=== PATIENT | male | born 1955 | race Caucasian/White ===

== ENCOUNTER 2016-06-29 19:13 | Emergency (ER) | payer OTHER ==
[~2016-06-29] VITALS: Ht 167.6 cm; Wt 86.5 kg
[~2016-06-29 19:13] MED LIST: ACET325T96 PO; ASCO500T16 PO; ASPI-266 PO; CRAN1CAP14 PO; DOCU-94 PO; FINA5TAB PO; FRS/40 PO; METF1TAB53 PO; NIAC1TAB59 PO; NYST80OI TOP; OXYC-57 PO; POLY335019 PO; POTA20TA13 PO; PROP80CA PO; SULF800T23 PO
[2016-06-29 19:17] VITALS: TEMP 36.7; Ht 167.6 cm; Wt 86.5 kg
[2016-06-29] MEDS ORDERED: OXYBUTYNIN CHLORIDE 5 MG TAB PO STA (19:52)
--- NOTE | 2016-06-29 20:01 | EMERGENCY ROOM VISIT NOTE ---
History Report prepared by Gerry: Jackelyn Araiza Under the Supervision of: Dr. Adalberto Padilla D.O. First contact with patient: 19:21 Chief Complaint: CATHETER REPLACEMENT Stated Complaint: CATH IS LEAKING History of Present Illness The patient is a 60 year old male who presents to the Emergency Room with complaints of persistent catheter leaking today. The patient has a history of a neurogenic bladder and recurrent urinary tract infections. On May 30, he had an open suprapubic catheter placed by Dr. Woodson of urology. Today, the patient started noticing some leakage from the site of catheter insertion. Source of History: patient Onset: today Position: other () Quality: other (leakage) Timing: other (persistent) Review of Systems See HPI for pertinent positives & negatives. A total of 10 systems reviewed and were otherwise negative. Past Medical & Surgical Medical Problems: (1) Cellulitis (2) Cerebral palsy (3) Diabetes mellitus (4) HTN (hypertension) Family History No pertinent family history Social History Smoking Status: Former Smoker Alcohol Use: none Drug Use: none Marital Status: single Housing Status: lives alone Occupation Status: disabled Current/Historical Medications Scheduled Ascorbic Acid (Ascorbic Acid), 500 MG PO QAM Aspirin (Aspirin Low Dose), 81 MG PO QAM Cranberry-Vitamin C-Vitamin E (Cranberry Plus Vitamin C), 2 CAP PO QAM Docusate Sodium (Colace), 100 MG PO BID Finasteride (Proscar), 5 MG PO QAM Furosemide (Lasix), 40 MG PO QAM Gemfibrozil (Lopid), 600 MG PO BIDM Magnesium Oxide (Mag-Ox), 400 MG PO QAM Metformin Hcl (Glucophage Ext Rel), 1,000 MG PO BIDM Niacin Ext Rel (Niaspan Ext Rel), 2,500 MG PO HS Nystatin (Topical) (Nystatin), 1 APPLN TOP BID Potassium Chloride Microencaps (Potassium Chloride Er), 20 MEQ PO QAM Propranolol Hcl (Propranolol Hcl Er), 80 MG PO QAM Solifenacin Succinate (Vesicare), 1 TAB PO DAILY Sulfa/Trimethoprim (Bactrim Ds 800MG/160MG), 1 TAB PO BID Scheduled PRN Acetaminophen Tab (Tylenol), 650 MG PO Q4 PRN for Pain Oxycodone/Acetaminophen 5MG/325MG (Percocet 5MG/325MG), 1 TABLET PO Q4H PRN for Pain Polyethylene Glycol 3350 (Miralax), 17 GM PO DAILY PRN for Constipation Tramadol Hcl (Ultram), 50 MG PO BID PRN for Pain Allergies Coded Allergies: No Known Allergies (Unverified , 06/29/16) Physical Exam Vital Signs Date Time Temp Pulse Resp B/P Pulse Ox O2 Delivery O2 Flow Rate FiO2 06/29/16 19:17 36.7 98 20 151/90 96 Room Air Physical Exam CONSTITUTIONAL/VITAL SIGNS: Reviewed / noted above. GENERAL: Non-toxic in appearance. INTEGUMENTARY: Warm, dry, and [place]. HEAD: Normocephalic. EYES: without scleral icterus or trauma. ENT/OROPHARYNX: clear and moist. LYMPHADENOPATHY/NECK: Is supple without lymphadenopathy or meningismus. RESPIRATORY: Lungs clear and equal. CARDIOVASCULAR: Regular rate and rhythm. GI/ABDOMEN: Soft and nontender. No organomegaly or pulsatile mass. No rebound or guarding. Normal bowel sounds. Indwelling Hernandez catheter in the suprapubic region. Clear yellow urine in the bag. No gross leakage or bleeding over the ostomy site. EXTREMITIES: Warm and well perfused. BACK: No CVA tenderness. NEUROLOGICAL: Intact without focal deficits. PSYCHIATRIC: normal affect. MUSCULOSKELETAL: Normally developed with good muscle tone. Medical Decision & Procedures ED Course 1921: Previous medical records were reviewed. The patient was evaluated in room C10. A complete history and physical examination was performed. 1941: I discussed the case with Dr. Reynoso - [facility]. He recommended putting the patient on Vesicare for bladder spasms. 1951: Ordered Ditropan Tab 5 mg PO. 2012: On reevaluation, the patient is resting comfortably. I discussed the results and findings with the patient. He verbalized agreement of the treatment plan. The patient was discharged home. Medical Decision Differential includes infection, mechanical dilatation of ostomy, bladder spasm. This is a 60-year-old male who presents to the ED with a chief complaint of some leaking from his ostomy site. The patient has an indwelling suprapubic Hernandez catheter. The patient has had some episodes of drainage from around the catheter site causing splenis to his clothing today. He denies any other symptoms. Currently his catheter bag is filled with a clear yellow urine. There is no witness to the site or any leakage around the site. I spoke with Dr. Gamboa about this case. He recommends the patient be started on the trip and or Vesicare for bladder spasm. The patient was given a dose of the trip and here. He'll be sent home with a prescription. Consults Time Called: 1929 Consulting Physician: Dr. Reynoso - [facility] Returned Call: 1941 I discussed the case with him. He recommended putting the patient on Vesicare for bladder spasms. Impression Primary Impression: Bladder spasm Additional Impression: Malfunction of Hernandez catheter Scribe Attestation The scribe's documentation has been prepared under my direction and personally reviewed by me in its entirety. I confirm that the note above accurately reflects all work, treatment, procedures, and medical decision making performed by me. Departure Information Dispostion Home / Self-Care Prescriptions Solifenacin Succinate (VESICARE) 5 Mg Tab 1 TAB PO DAILY for 30 Days, #30 TAB 11 Refills Prov: Adalberto Padilla D.O. 06/29/16 Referrals Mitchel Chowdhury M.D. (PCP) Patient Instructions My [facility] Additional Instructions Prescription for Vesicare sent to [facility]. Follow-up with Dr. Woodson this week for recheck. Problem Qualifiers
[2016-06-29] MEDS ORDERED: ULT/50 PO (20:09)
[2016-06-29] MEDS ORDERED: SOLI5TAB2 PO (20:12)
[2016-06-29] MEDS ORDERED: ASPI81TA28 PO (20:29)
[2016-06-29] MEDS ORDERED: LSN25 PO (20:29)
[2016-06-29] MEDS ORDERED: SENNTAB PO (20:29)
[2016-06-29] MEDS ORDERED: FLM4 PO (20:29)
[2016-06-29] MEDS ORDERED: GLC5 PO (20:29)
[2016-06-29 21:07] VITALS: BP 153/86; PULSE 93; O2SAT 98
[2016-06-29] MEDS ORDERED: MAGN400T6 PO (22:39)
[2016-06-29] MEDS ORDERED: GEMF600T3 PO (22:39)
[2016-09-02] MEDS ORDERED: GLC/500 PO (15:04)
[2016-09-05] MEDS ORDERED: CEPH500C2 PO (11:48)
== END 2016-06-29 21:07 | disposition home or self-care (01) ==
LOC: C.EDB 19:15 → C.EDC 21:07
DX: T83.038A Leakage of other urinary catheter, initial encounter (principal); X58.XXXA Exposure to other specified factors, initial encounter; E11.9 Type 2 diabetes mellitus without complications; I10 Essential (primary) hypertension; N32.89 Other specified disorders of bladder; N31.9 Neuromuscular dysfunction of bladder, unspecified; G80.9 Cerebral palsy, unspecified; Z86.19 Personal history of other infectious and parasitic diseases; Z87.891 Personal history of nicotine dependence; Z79.82 Long term (current) use of aspirin; Z79.84 Long term (current) use of oral hypoglycemic drugs; Z79.899 Other long term (current) drug therapy

== ENCOUNTER → 2016-07-09 | Outpatient (CLI) | payer OTHER ==
[~2016-07-09] MED LIST changes: -ASPI-266 PO; +ASPI81TA28 PO; +CEPH500C2 PO; -DOCU-94 PO; +FLM4 PO; +GEMF600T3 PO; +GLC/500 PO; +GLC5 PO; +LSN25 PO; +MAGN400T6 PO; -OXYC-57 PO; +SENNTAB PO; -SULF800T23 PO; +ULT/50 PO
[2016-07-09 13:07] LABS: ESTIMATED AVERAGE GLUCOSE 128 mg/dl; HA1C FLAG Normal (Normal)
== END | disposition home or self-care (01) ==
LOC: C.LABBFT 11:18
PROVIDERS: ATTEND Internal Medicine
DX: E11.9 Type 2 diabetes mellitus without complications (principal)

== ENCOUNTER → 2016-08-19 | Outpatient (CLI) | payer OTHER ==
--- NOTE | 2016-08-30 11:55 | CODING QUERY NO DIAGNOSIS ---
TREATMENT RENDERED WITHOUT A DIAGNOSIS To promote full compliance with coding requirements relating to patient care, physician participation is requested in all cases of career development consultant uncertainty. Please assist us with providing a diagnosis/symptom for the test(s) below: A diagnosis/symptom was not documented on your Order. A valid diagnosis/symptom is required to bill all insurances. Please remember that we are unable to code a diagnosis of rule out, probable, possible, questionable, or suspected. Tests that require a diagnosis: * WOUND CULTURE, SURFACE AND GS HIP DIAGNOSIS: Provider Signature: Date: Thank you Cathryn Langley Chargeback Information Management Once completed, please kindly fax back to [phone] For questions please call [phone]
== END | disposition home or self-care (01) ==
LOC: C.LABSPEC 09:20
PROVIDERS: ATTEND Physician Assistant Medical
DX: T14.8 Other injury of unspecified body region (principal); X58.XXXA Exposure to other specified factors, initial encounter

== ENCOUNTER → 2016-08-26 | Outpatient (CLI) | payer OTHER | END | disposition home or self-care (01) | LOC: C.LABSPEC 12:27 | PROVIDERS: ATTEND Nurse Practitioner | DX: S71.002A Unspecified open wound, left hip, initial encounter (principal); X58.XXXA Exposure to other specified factors, initial encounter ==

== ENCOUNTER → 2017-03-04 | Outpatient (CLI) | payer OTHER ==
[2017-03-04 12:34] LABS: BASO % 0.3 %; BASO ABS # 0.02 K/uL (0-0.2); COMPLETE YES; EOS % 2.8 %; HEMATOCRIT 36.7 % (42-52); IG% 1.1 %; LYMPH % 22.4 %; LYMPH ABS # 1.46 K/uL (1.2-3.4); MEAN CELL VOLUME 95.3 fL (80-100); MEAN CORPUSCULAR HEMOGLOBIN 33.2 pg (25-34); MEAN CORPUSCULAR HGB CONC 34.9 g/dl (32-36); MEAN PLATELET VOLUME 8.9 fL (7.4-10.4); NEUT % 65.4 %; PLATELET COUNT 276 K/uL (130-400); RED BLOOD COUNT 3.85 M/uL (4.7-6.1); WHITE BLOOD COUNT 6.51 K/uL (4.8-10.8)
[2017-03-04 12:50] LABS: ESTIMATED AVERAGE GLUCOSE 105 mg/dl; HA1C FLAG Normal (Normal)
[2017-03-04 12:54] LABS: ALT/SGPT 20 U/L (12-78); BLOOD UREA NITROGEN 12 mg/dl (7-18); BUN/CREATININE RATIO 12.5 (10-20); CALCIUM 10.1 mg/dl (8.5-10.1); CARBON DIOXIDE 27 mmol/L (21-32); CHLORIDE 99 mmol/L (98-107); CHOLESTEROL 166 mg/dl (0-200); CREATININE 0.93 mg/dl (0.60-1.40); GLUCOSE 202 mg/dl (70-99); POTASSIUM 3.4 mmol/L (3.5-5.1); SODIUM 136 mmol/L (136-145)
[2017-03-04 12:57] LABS: ALKALINE PHOSPHATASE 83 U/L (45-117); AST/SGOT 19 U/L (15-37); CHOLESTEROL/HDL RATIO 2.6; HDL CHOLESTEROL 64 mg/dl; LDL CHOLESTEROL CALCULATED 72 mg/dl; TRIGLYCERIDES 150 mg/dl (0-150); VERY LOW DENSITY LIPOPROT CALC 30 mg/dl
== END | disposition home or self-care (01) ==
LOC: C.LABBFT 11:12
PROVIDERS: ATTEND Physician Assistant Medical
DX: E11.9 Type 2 diabetes mellitus without complications (principal)

== ENCOUNTER → 2017-03-10 | Outpatient (CLI) | payer OTHER ==
[2017-03-10 12:34] LABS: BLOOD UREA NITROGEN 15 mg/dl (7-18); BUN/CREATININE RATIO 18.2 (10-20); CALCIUM 10.3 mg/dl (8.5-10.1); CARBON DIOXIDE 26 mmol/L (21-32); CHLORIDE 100 mmol/L (98-107); CREATININE 0.83 mg/dl (0.60-1.40); GLUCOSE 206 mg/dl (70-99); POTASSIUM 3.6 mmol/L (3.5-5.1); SODIUM 136 mmol/L (136-145)
[2017-03-10 12:40] LABS: FERRITIN 63.6 ng/ml (8.0-388.0); TOTAL IRON BINDING CAPACITY 401 mcg/dl (250-450)
== END | disposition home or self-care (01) ==
LOC: C.LABBFT 08:48
PROVIDERS: ATTEND Physician Assistant Medical
DX: D64.9 Anemia, unspecified (principal); E87.6 Hypokalemia

== ENCOUNTER → 2017-07-18 | Outpatient (CLI) | payer OTHER ==
[~2017-07-18] MED LIST changes: +ACET-1693 PO; -ACET325T96 PO
[2017-07-18 12:39] LABS: HEMATOCRIT 37.3 % (42-52); HEMOGLOBIN 12.9 g/dL (14.0-18.0); MEAN CELL VOLUME 97.1 fL (80-100); MEAN CORPUSCULAR HEMOGLOBIN 33.6 pg (25-34); MEAN CORPUSCULAR HGB CONC 34.6 g/dl (32-36); PLATELET COUNT 285 K/uL (130-400); RED CELL DISTRIBUTION WIDTH CV 13.7 % (11.5-14.5); RED CELL DISTRIBUTION WIDTH SD 47.9 fL (36.4-46.3); WHITE BLOOD COUNT 6.77 K/uL (4.8-10.8)
[2017-07-18 12:59] LABS: BLOOD UREA NITROGEN 21 mg/dl (7-18); CALCIUM 10.2 mg/dl (8.5-10.1); CARBON DIOXIDE 26 mmol/L (21-32); CREATININE 1.09 mg/dl (0.60-1.40); GLUCOSE 210 mg/dl (70-99); POTASSIUM 3.7 mmol/L (3.5-5.1); SODIUM 133 mmol/L (136-145)
== END | disposition home or self-care (01) ==
LOC: C.LABBFT 10:48
PROVIDERS: ATTEND Physician Assistant Medical
DX: D64.9 Anemia, unspecified (principal); E83.52 Hypercalcemia

== ENCOUNTER → 2017-07-28 | Outpatient (CLI) | payer OTHER | END | disposition home or self-care (01) | LOC: C.LABBFT 09:12 | PROVIDERS: ATTEND Physician Assistant Medical | DX: E83.52 Hypercalcemia (principal) ==

== ENCOUNTER → 2017-08-07 | Outpatient (CLI) | payer OTHER ==
[2017-08-07 10:23] LABS: HEMATOCRIT 35.2 % (42-52); HEMOGLOBIN 12.4 g/dL (14.0-18.0); MEAN CELL VOLUME 95.7 fL (80-100); MEAN CORPUSCULAR HEMOGLOBIN 33.7 pg (25-34); MEAN CORPUSCULAR HGB CONC 35.2 g/dl (32-36); MEAN PLATELET VOLUME 8.8 fL (7.4-10.4); PLATELET COUNT 234 K/uL (130-400); RED CELL DISTRIBUTION WIDTH CV 13.6 % (11.5-14.5); RED CELL DISTRIBUTION WIDTH SD 46.3 fL (36.4-46.3); WHITE BLOOD COUNT 5.02 K/uL (4.8-10.8)
== END | disposition home or self-care (01) ==
LOC: C.LABSPEC 10:02
PROVIDERS: ATTEND Internal Medicine
DX: E83.52 Hypercalcemia (principal)

== ENCOUNTER → 2017-08-29 | Outpatient (CLI) | payer OTHER ==
--- NOTE | 2017-08-29 09:44 | DIAGNOSTIC IMAGING REPORT ---
EXAMINATION: RENAL ULTRASOUND CLINICAL HISTORY: URINARY RETENTION COMPARISON STUDY: CT scan dated 04/20/2016, ultrasound dated 01/04/2014 FINDINGS: The right kidney measures 10.5 cm. The left kidney measures 10.4 cm. There is no evidence of hydronephrosis. There are no renal masses. Evaluation the bladder was limited due to indwelling Hernandez catheter. There is equivocal bladder wall thickening IMPRESSION : 1. No renal masses identified. No evidence of hydronephrosis 2. Possible bladder wall thickening. Evaluation the bladder was limited as the bladder was decompressed with an indwelling Hernandez catheter Electronically signed by: Tl Evangelista M.D. 08/29/2017 9:43 AM Dictated Date/Time: 08/29/2017 9:42 AM
== END | disposition home or self-care (01) ==
LOC: C.ULTR 08:39
PROVIDERS: ATTEND Urology
DX: R33.9 Retention of urine, unspecified (principal)

== ENCOUNTER 2017-10-01 08:57 | Emergency (ER) | payer OTHER ==
[~2017-10-01] VITALS: Ht 167.6 cm; Wt 85.0 kg
[2017-10-01 09:08] VITALS: TEMP 36.9; Ht 167.6 cm; Wt 85.0 kg
[2017-10-01] MEDS ORDERED: DIPHTHERIA/TETANUS/PERTUSSIS 0.5 ML SYR/VIAL IM. ONE (09:15)
[2017-10-01 10:40] VITALS: BP 145/78; PULSE 104; O2SAT 96
--- NOTE | 2017-10-01 14:44 | EMERGENCY ROOM VISIT NOTE ---
History Report prepared by Gerry: Jeanmarie Blackman Under the Supervision of: Dr. Yosef Dahl D.O. First contact with patient: 09:03 Chief Complaint: TOE PAIN, INJURY Stated Complaint: FOOT PAIN History of Present Illness The patient is a 61 year old male who presents to the Emergency Room via ALS with complaints of bleeding in the 3rd toe of the right foot. The patient states that he was using the restroom early this morning when he hit his toe on something. The toenail was ripped off and began to bleed. The patient has no other complaints. Pain is constant over the top of the toenail. No exacerbating or remitting factors. Source of History: patient Onset: Early this morning Position: toe(s) (3rd toe right foot) Quality: other (Stubbed toe - bleeding, lost toenail) Timing: other (Stubbed toe this morning) Note: No other complaints Review of Systems See HPI for pertinent positives & negatives. A total of 6 systems reviewed and were otherwise negative. Past Medical & Surgical Medical Problems: (1) Cellulitis (2) Cerebral palsy (3) Diabetes mellitus (4) HTN (hypertension) Family History No pertinent family history Social History Smoking Status: Former Smoker Alcohol Use: none Drug Use: none Marital Status: single Housing Status: lives alone Occupation Status: disabled Current/Historical Medications Scheduled Ascorbic Acid (Ascorbic Acid), 500 MG PO QAM Aspirin (Aspirin Ec), 81 MG PO DAILY Cephalexin Monohydrate (Keflex), 500 MG PO TID Cranberry-Vitamin C-Vitamin E (Cranberry Plus Vitamin C), 2 CAP PO QAM Finasteride (Proscar), 5 MG PO QAM Furosemide (Lasix), 40 MG PO QAM Gemfibrozil (Lopid), 600 MG PO BIDM Glipizide (Glipizide), 10 MG PO BID Lisinopril (Lisinopril), 2.5 MG PO DAILY Magnesium Oxide (Mag-Ox), 400 MG PO QAM Metformin Hcl (Glucophage Ext Rel), 1,000 MG PO BIDM Metformin Hcl (Glucophage), 500 MG PO DAILY@1200 Niacin Ext Rel (Niaspan Ext Rel), 2,500 MG PO HS Nystatin (Topical) (Nystatin), 1 APPLN TOP BID Potassium Chloride Microencaps (Potassium Chloride Er), 20 MEQ PO QAM Propranolol Hcl (Propranolol Hcl Er), 80 MG PO QAM Sennosides-Docusate Sodium (Qc Stool Softener Plus La), 1 TAB PO BID Scheduled PRN Acetaminophen Tab (Tylenol), 650 MG PO Q4 PRN for Pain Polyethylene Glycol 3350 (Miralax), 17 GM PO DAILY PRN for Constipation Tramadol Hcl (Ultram), 50 MG PO BID PRN for Pain Allergies Coded Allergies: No Known Allergies (Unverified , 10/01/17) Physical Exam Vital Signs Date Time Temp Pulse Resp B/P (MAP) Pulse Ox O2 Delivery O2 Flow Rate FiO2 10/01/17 10:40 104 20 145/78 96 10/01/17 09:08 36.9 100 16 135/92 100 Room Air Physical Exam GENERAL: Sitting up in bed, alert, well appearing, well nourished, no distress, non-toxic EYE EXAM: normal conjunctiva. OROPHARYNX: no exudate, no erythema, lips, buccal mucosa, and tongue normal and mucous membranes are moist NECK: supple, no nuchal rigidity, no adenopathy, non-tender LUNGS: Clear to auscultation. Normal chest wall mechanics HEART: no murmurs, S1 normal and S2 normal ABDOMEN: abdomen soft, non-tender, normo-active bowel sounds, no masses, no rebound or guarding. SKIN: no rashes and no bruising UPPER EXTREMITIES: upper extremities are grossly normal. LOWER EXTREMITIES: No pitting edema. Right 3rd toe with evulsion of nail. Slightly tacked on the right posterior aspect. no active bleeding. Good capillary refill. No tenderness throughout the toe. NEURO EXAM: Normal sensorium, no focal deficits. Medical Decision & Procedures ED Course ED COURSE: Vital signs were reviewed and showed normal vitals The patients medical record was reviewed The above diagnostic studies were performed and reviewed. ED treatments and interventions as stated above. 0905: The patient was evaluated in room A12B. A complete history and physical examination was performed. 0908: Upon initial evaluation, the patient is comfortable and without complaints.I discussed my findings with the patient and he understands and agrees with the treatment plan. Based on the patients age, coexisting illnesses, exam and lab findings the decision to treat as an outpatient was made. The patient remained stable while under my care. The patient appeared well at the time of discharge. Medical Decision Patient is a 61-year-old male who presents the ER who stubbed his right third toe. He did have an avulsion of the nail. No other pain. Tetanus was updated. Wound was dressed. Wound was clean. He was discharged follow-up with PCP as an outpatient. No tenderness to suggest fracture. Discussed with Pt concerning signs and symptoms to watch out for. Pt was instructed to follow up with their PCP and discussed with the patient their option to return to the ED at anytime for persistent or worsening symptoms. The appropriate anticipatory guidance and out-patient management, including indications for return to the emergency department, were explained at length to the patient and understood. Impression Primary Impression: Nail avulsion of toe Scribe Attestation The scribe's documentation has been prepared under my direction and personally reviewed by me in its entirety. I confirm that the note above accurately reflects all work, treatment, procedures, and medical decision making performed by me. Departure Information Dispostion Home / Self-Care Referrals Mitchel Chowdhury M.D. (PCP) Forms HOME CARE DOCUMENTATION FORM, IMPORTANT VISIT INFORMATION, WORK / SCHOOL INSTRUCTIONS Patient Instructions My [facility] Additional Instructions Please follow up with your primary care doctor with in the next 24 hours. Any worsening of your symptoms, please return to the ED immediately. This includes any fevers greater than 100.4, surrounding redness, worsening pain, green or yellow discharge from the wound site, persistent bleeding, inability to walk, streaking redness up the foot, or any other concerning signs or symptoms from your standpoint. Please take Tylenol or Motrin as needed for pain. Please keep your toe dressed and dry. Please apply antibiotic ointment. Please try to change dressing daily. He must follow-up with your PCP in 48 hours for recheck. Problem Qualifiers Primary Impression: Nail avulsion of toe Encounter type: initial encounter Qualified Codes: S91.209A - Unspecified open wound of unspecified toe(s) with damage to nail, initial encounter
== END 2017-10-01 10:42 | disposition home or self-care (01) ==
LOC: EDBD 08:57 → C.EDA 09:04
DX: S91.215A Laceration without foreign body of left lesser toe(s) with damage to nail, initial encounter (principal); W22.8XXA Striking against or struck by other objects, initial encounter; G80.9 Cerebral palsy, unspecified; E11.9 Type 2 diabetes mellitus without complications; I10 Essential (primary) hypertension; Z87.891 Personal history of nicotine dependence; Z79.82 Long term (current) use of aspirin; Z79.84 Long term (current) use of oral hypoglycemic drugs; Z79.899 Other long term (current) drug therapy

== ENCOUNTER → 2018-01-27 | Outpatient (CLI) | payer OTHER ==
[~2018-01-27] MED LIST changes: -CEPH500C2 PO; -FLM4 PO; -GEMF600T3 PO; +GEMF600T5 PO
== END | disposition home or self-care (01) ==
LOC: C.LABSPEC 14:46
PROVIDERS: ATTEND Urology
DX: N39.0 Urinary tract infection, site not specified (principal)

== ENCOUNTER 2018-10-10 19:44 | Inpatient (IN) ==
[2018-10-10] MEDS ORDERED: SODIUM CHLORIDE 0.9% 1000ML 1,000 ML IV ONE (20:11)
[2018-10-10 20:35] LABS: Hematocrit (blood only) 33.5 % (42-52); Immature Granulocytes # (auto) 0.06 K/uL (0.00-0.02); Immature Granulocytes % (auto) 0.4 %; Lymphocytes # (auto) 0.55 K/uL (1.2-3.4); Lymphocytes % (auto) 3.5 %; Mean Corpuscular Hgb Conc 35.8 g/dL (32-36); Mean Corpuscular Volume 96.3 fL (80-100); Mean Platelet Volume 8.4 fL (7.4-10.4); Monocytes % (auto) 2.6 %; Neutrophils # (auto) 14.53 K/uL (1.4-6.5); Neutrophils % (auto) 93.5 %; Platelet Count 229 K/uL (130-400); RDW Standard Deviation 49.4 fL (36.4-46.3); Red Blood Count 3.48 M/uL (4.7-6.1); White Blood Count 15.54 K/uL (4.8-10.8)
[2018-10-10 20:49] LABS: INR 1.2 (0.9-1.1); Partial Thromboplastin Ratio 1.1; Partial Thromboplastin Time 30.8 Seconds (21.0-31.0); Prothrombin Time 12.4 Seconds (9.0-12.0)
[2018-10-10 20:53] LABS: Albumin Level 3.9 gm/dl (3.4-5.0); BUN Creatinine Ratio 12.6 (10-20); Bilirubin Direct 0.3 mg/dl (0-0.2); Calcium 9.9 mg/dl (8.5-10.1); Creatinine Clr Calc Pharmacy 60.6 ml/min; Est GFR (African American) 71.5; Est GFR (Non-African American) 61.7; Magnesium 2.1 mg/dl (1.8-2.4); Potassium 3.8 mmol/L (3.5-5.1)
[2018-10-10 20:56] LABS: Bilirubin,Total 1.1 mg/dl (0.2-1); Phosphorus 2.3 mg/dl (2.5-4.9); Total Protein 7.9 gm/dl (6.4-8.2)
--- NOTE | 2018-10-10 20:58 | XRay Report ---
XR chest 1V portable CLINICAL HISTORY: Sepsis COMPARISON STUDY: Chest radiograph April 28, 2018. FINDINGS: Lung volumes are mildly diminished. This is unchanged. Cardiomediastinal is stable. Patient is mildly rotated. There is no pneumothorax or pleural effusion. Apparent hazy left basilar opacity is likely artifactual. The appearance of the chest is unchanged. IMPRESSION: No acute cardiopulmonary findings. No change in appearance of the chest. Electronically signed by: Casimiro Martínez M.D. 10/10/2018 8:56 PM
[2018-10-10] MEDS ORDERED: VANCOMYCIN CONSULT ACTIVE PRN (21:33)
[2018-10-10] MEDS ORDERED: PIPERACILLIN/TAZOBACTAM 4.5 GM/120 ML BAG IV ONE (21:33)
[2018-10-10] MEDS ORDERED: VANCOMYCIN HCL 1,500 MG in SODIUM CHLORIDE 0.9% 500 ML IV ONE (21:33)
[2018-10-10 22:01] LABS: Appearance Urine Clear (Clear); Bilirubin Urine Negative (Negative); Blood Urine 3+ (Negative); Color Urine Yellow; Glucose Urine UA Negative (Negative); Ketones Urine Trace (Negative); Leukocyte Esterase Urine 2+ (Negative); Nitrite Urine Positive (Negative); Protein Urine 1+ (Negative); Specific Gravity Urine 1.015 (1.000-1.030); Urobilinogen Urine Negative (Negative); pH Urine 5.5 (4.5-7.5)
--- NOTE | 2018-10-10 23:02 | Ultrasound Report ---
LEFT LOWER EXTREMITY VENOUS DOPPLER CLINICAL HISTORY: Swelling and redness. COMPARISON STUDY: Left lower extremity venous Doppler ultrasound April 12, 2014. TECHNIQUE: Sonography of the deep venous system of the left lower extremity was performed. Compressi on and augmentation were evaluated. FINDINGS: This exam was technically difficult. The left common femoral, superficial femoral and popli teal veins were compressible. Augmentation was normal. Flow was shown within the deep calf vessels. IMPRESSION: Technically difficult exam but no evidence of deep venous thrombus within the left lower extremity. Electronically signed by: Casimiro Martínez M.D. 10/10/2018 11:01 PM
--- NOTE | 2018-10-10 23:49 | History & Physical Report ---
Date of Service October 10, 2018 Assessment & Plan (1) Weakness: 62-year-old male was admitted on 10 Oct 2018 for increased weakness and concern for leg infection. Weakness, catheter-associated urinary tract infection: By report onset of symptoms was earlier day of admission. He has a history of a chronic suprapubic catheter with previous UTIs. History is limited at present. In ED, is afebrile, not tachycardic, with normal blood pressures. WBC 15 and lactate 2.3. Urine positive for protein, blood, nitrates, and leukocyte esterase. Urine culture and blood cultures sent. Comparison urine culture in April 2018 was positive for MDR Pseudomonas and E faecalis but sensitive to vancomycin and Zosyn. - In ED, treated with 1 L of normal saline IVF. Started on empiric vancomycin and Zosyn. - We will recheck lactate. Continue above antibiotics. Continue IVF. Left leg cellulitis: Unclear time of duration. There are couple of small toe wounds that may be contributing. - Above vancomycin and Zosyn should initially cover. Elevated creatinine: Admit Cr 1.2. Recent comparisons around Cr 0.9. Given IVF bolus. - Will keep on maintenance LR IVF. Recheck Cr in a.m. Tachypnea: Respiratory rate in the 20s. Clear to auscultation on exam. Portable chest x-ray noted no acute findings. Reported left basilar opacity is likely artifactual. May be related to his UTI and/or cellulitis infections. Monitor for now. Hyponatremia: Admit sodium 132. Given IVF. Will recheck in a.m. Ongoing medical issues: - Hypertension, hyperlipidemia: Continue home aspirin, gemfibrozil, niacin, potassium, magnesium, propranolol. --- We will hold lisinopril and Lasix due to mild increased creatinine. - Macrocytic anemia: Previous work-up in April 2018. Current admit Hb 12 and normal MCV. - Diabetes: At home is on metformin. Admit glucose 217. --- We will cover with insulin sliding scale as inpatient. Holding home metformin. - Cerebral palsy, spina bifida: Continue home MiraLAX, sennosides/docusate, tramadol. - Possible BPH: Continue home finasteride. Code status: Unable to assess at time of admission. Will start with full code. Diet: Heart healthy, DM2 diet. DVT prophy: Lovenox 40 daily. PT/OT: Deferred. Disbo: We will admit to [facility] At baseline lives at home with home health and family support. (2) Catheter-associated urinary tract infection: (3) Cellulitis of left leg: (4) Elevated serum creatinine: (5) Tachypnea: (6) Hyponatremia: (7) Hyponatremia: (8) Hypertension: (9) Hyperlipidemia: (10) History of macrocytic anemia: (11) Diabetes: (12) Cerebral palsy: (13) Spina bifida: History of Present Illness Primary Care Provider: Mitchel Chowdhury MD 62-year-old male presented emergency department apparently complaining of increased fatigue and generalized weakness beginning earlier in the day (October 10). Of note, the history for H&P purposes was completely taken from the medical record and conversations with both the emergency department physician and bedside nurse. At present, patient is sleeping soundly, arouses briefly to pain, but immediately goes back to sleep. Per the emergency department physician, earlier the patient was initially conversational but a bit slower due to baseline cerebral palsy. History was per patient's sister. Apparently the patient did not want to get out of bed earlier in the day. Sister was concerned about increased weakness, a potential leg infection, and higher than normal blood sugar. She noted that he has a suprapubic catheter in place that is changed out every week. --- Past medical history includes cerebral palsy, spina bifida, hypertension, hyperlipidemia, microcytic anemia, diabetes, possibly BPH. --- Past surgical history is presently unclear. --- Social history includes reportedly is living at home with family and nursing support. Allergies Allergy/AdvReac Type Severity Reaction Status Date / Time No Known Allergies Allergy Verified 10/10/18 20:37 Home Medications Home Medications Medication Instructions Recorded Confirmed Type acetaminophen [Tylenol] 650 mg PO Q4H PRN 04/28/18 10/10/18 History ascorbic acid (vitamin C) [Vitamin 500 mg PO DAILY 04/28/18 10/10/18 History C] aspirin [Aspirin Low Dose] 81 mg PO DAILY 04/28/18 10/10/18 History cholecalciferol (vitamin D3) 2,000 units PO DAILY 04/28/18 10/10/18 History [Vitamin D3] finasteride 5 mg PO DAILY 04/28/18 10/10/18 History furosemide 40 mg PO DAILY 04/28/18 10/10/18 History gemfibrozil 600 mg PO BID 04/28/18 10/10/18 History lisinopril 2.5 mg PO DAILY 04/28/18 10/10/18 History magnesium oxide 400 mg PO DAILY 04/28/18 10/10/18 History metformin 1,000 mg PO BID 04/28/18 10/10/18 History niacin [Niacor] 2,500 mg PO HS 04/28/18 10/10/18 History polyethylene glycol 3350 [Miralax] 17 g PO DAILY PRN 04/28/18 10/10/18 History potassium chloride 20 meq PO DAILY 04/28/18 10/10/18 History propranolol 80 mg PO DAILY 04/28/18 10/10/18 History tramadol 50 mg PO BID 04/28/18 10/10/18 History acetic acid 1 irrig IRRIGATION DIRECTED 10/10/18 10/10/18 History sennosides-docusate sodium [Senna 1 tab PO BID 10/10/18 10/10/18 History Laxative-Stool Softener] Past Med/Surg History Medical History HTN (hypertension) (Chronic) Spina bifida (Chronic) Cerebral palsy (Chronic) Diabetes (Chronic) Heart disease (Chronic) Pneumonia (Suspected) Family History Other Cancer Diabetes Heart disease Hypertension Social History Preferred Language: Faroese Communication Ability: Effective Communication Ability Comment: [facility], hears better from R ear Side Gluer Required: No Beliefs That Will Affect Care: None Current Living Situation: Alone Current Living Situation Comment: has cargivers from [id number] and [id number] Feels Safe at Home: Yes Safety Concerns: Feels Safe At This Time Smoking Status: Never smoker Do You Dip or Chew Tobacco: No Hx Alcohol Use: No Hx Substance Use: No Review of Systems Review of Systems: Unable to obtain ROS due to current somnolence. Physical Exam Physical Exam: GENERAL: Patient is somnolent, flinches to pain but does not open his eyes. HENT: Normocephalic, atraumatic. EYES: Normal conjunctiva. Sclera non-icteric. NECK: Inspection normal. CARDIAC: +S1S2 RRR, no murmurs. RESPIRATORY: Clear to auscultation. No wheezes or rales. Respiratory rate in low 20s with no evidence of accessory muscle use. GI: +BS, soft, non-distended. No clear tenderness to palpation. Suprapubic catheter in place without surrounding erythema or obvious discharge. EXTREMITIES: There is generalized erythema of the left leg from the toes to just distal to the patella near circumferentially. There is some macerated tissue between the toes on the left foot. There is a small ulcerative type lesion on the third toe of the right foot. The left arm is being held in a flexed position. NEURO: Unable to assess due to somnolence. Does arouse a bit to pain. Results & Data Vital Signs (Past 12 Hours) Vital Signs Temp Pulse Resp BP Pulse Ox 10/10/18 23:31 87 25 H 109/59 L 96 10/10/18 23:01 90 28 H 112/58 L 98 10/10/18 22:31 82 27 H 97/55 L 96 10/10/18 22:30 92 H 29 H 95 10/10/18 22:00 91 H 21 99 10/10/18 21:31 87 25 H 119/62 96 10/10/18 21:30 91 H 27 H 97 10/10/18 21:02 87 24 97 10/10/18 21:01 86 26 H 121/60 92 10/10/18 21:00 89 26 H 90 10/10/18 20:40 92 H 26 H 97 10/10/18 20:31 92 H 25 H 110/67 97 10/10/18 19:51 36.9 C 95 H 20 104/65 99 Laboratory Results 10/10/18 10/10/18 10/10/18 Range/Units Unknown 20:26 20:26 WBC (4.8-10.8) K/uL RBC (4.7-6.1) M/uL Hgb (14.0-18.0) g/dL Hct (42-52) % MCV (80-100) fL MCH (25-34) pg MCHC (32-36) g/dL RDW Std Deviation (36.4-46.3) fL RDW Coeff of Renée (11.5-14.5) % Plt Count (130-400) K/uL MPV (7.4-10.4) fL Immature Gran % (Auto) % Neut % (Auto) % Lymph % (Auto) % [place] % (Auto) % Eos % (Auto) % Baso % (Auto) % Immature Gran # (Auto) (0.00-0.02) K/uL Neut # (Auto) (1.4-6.5) K/uL Lymph # (Auto) (1.2-3.4) K/uL [place] # (Auto) (0.11-0.59) K/uL Eos # (Auto) (0-0.5) K/uL Baso # (Auto) (0-0.2) K/uL PT (9.0-12.0) Seconds INR (0.9-1.1) APTT (21.0-31.0) Seconds PTT Ratio Sodium 132 L (136-145) mmol/L Potassium 3.8 (3.5-5.1) mmol/L Chloride 95 L (98-107) mmol/L Carbon Dioxide 25 (21-32) mmol/L Anion Gap 12.0 H (3-11) BUN 16 (7-18) mg/dl Creatinine 1.23 (0.6-1.4) mg/dl Est Cr Clr Drug Dosing 60.6 ml/min Est GFR ( Amer) 71.5 Est GFR (Non-Af Amer) 61.7 BUN/Creatinine Ratio 12.6 (10-20) Glucose 217 H (70-99) mg/dl Lactate 2.3 H* (0.4-2.0) mmol/L Calcium 9.9 (8.5-10.1) mg/dl Phosphorus 2.3 L (2.5-4.9) mg/dl Magnesium 2.1 (1.8-2.4) mg/dl Total Bilirubin 1.1 H (0.2-1) mg/dl Direct Bilirubin 0.3 H (0-0.2) mg/dl AST 20 (15-37) U/L ALT 19 (12-78) U/L Alkaline Phosphatase 74 (45-117) U/L Total Protein 7.9 (6.4-8.2) gm/dl Albumin 3.9 (3.4-5.0) gm/dl Globulin 4.0 (2.5-4.0) gm/dl Albumin/Globulin Ratio 1.0 (0.9-2) Urine Color Yellow Urine Appearance Clear (Clear) Urine pH 5.5 (4.5-7.5) Ur Specific [place] 1.015 (1.000-1.030) Urine Protein 1+ H (Negative) Urine Glucose (UA) Negative (Negative) Urine Ketones Trace H (Negative) Urine Blood 3+ H (Negative) Urine Nitrite Positive A (Negative) Urine Bilirubin Negative (Negative) Urine Urobilinogen Negative (Negative) Ur Leukocyte Esterase 2+ H (Negative) Urine RBC (0-4) /hpf Urine WBC (0-5) /hpf Ur Epithelial Cells (0-5) /lpf Urine Bacteria (Negative) 10/10/18 10/10/18 Range/Units 20:26 20:26 WBC 15.54 H (4.8-10.8) K/uL RBC 3.48 L (4.7-6.1) M/uL Hgb 12.0 L (14.0-18.0) g/dL Hct 33.5 L (42-52) % MCV 96.3 (80-100) fL MCH 34.5 H (25-34) pg MCHC 35.8 (32-36) g/dL RDW Std Deviation 49.4 H (36.4-46.3) fL RDW Coeff of Renée 14.0 (11.5-14.5) % Plt Count 229 (130-400) K/uL MPV 8.4 (7.4-10.4) fL Immature Gran % (Auto) 0.4 % Neut % (Auto) 93.5 % Lymph % (Auto) 3.5 % [place] % (Auto) 2.6 % Eos % (Auto) 0.0 % Baso % (Auto) 0.0 % Immature Gran # (Auto) 0.06 H (0.00-0.02) K/uL Neut # (Auto) 14.53 H (1.4-6.5) K/uL Lymph # (Auto) 0.55 L (1.2-3.4) K/uL [place] # (Auto) 0.40 (0.11-0.59) K/uL Eos # (Auto) 0.00 (0-0.5) K/uL Baso # (Auto) 0.00 (0-0.2) K/uL PT 12.4 H (9.0-12.0) Seconds INR 1.2 H (0.9-1.1) APTT 30.8 (21.0-31.0) Seconds PTT Ratio 1.1 Sodium (136-145) mmol/L Potassium (3.5-5.1) mmol/L Chloride (98-107) mmol/L Carbon Dioxide (21-32) mmol/L Anion Gap (3-11) BUN (7-18) mg/dl Creatinine (0.6-1.4) mg/dl Est Cr Clr Drug Dosing ml/min Est GFR ( Amer) Est GFR (Non-Af Amer) BUN/Creatinine Ratio (10-20) Glucose (70-99) mg/dl Lactate (0.4-2.0) mmol/L Calcium (8.5-10.1) mg/dl Phosphorus (2.5-4.9) mg/dl Magnesium (1.8-2.4) mg/dl Total Bilirubin (0.2-1) mg/dl Direct Bilirubin (0-0.2) mg/dl AST (15-37) U/L ALT (12-78) U/L Alkaline Phosphatase (45-117) U/L Total Protein (6.4-8.2) gm/dl Albumin (3.4-5.0) gm/dl Globulin (2.5-4.0) gm/dl Albumin/Globulin Ratio (0.9-2) Urine Color Urine Appearance (Clear) Urine pH (4.5-7.5) Ur Specific [place] (1.000-1.030) Urine Protein (Negative) Urine Glucose (UA) (Negative) Urine Ketones (Negative) Urine Blood (Negative) Urine Nitrite (Negative) Urine Bilirubin (Negative) Urine Urobilinogen (Negative) Ur Leukocyte Esterase (Negative) Urine RBC (0-4) /hpf Urine WBC (0-5) /hpf Ur Epithelial Cells (0-5) /lpf Urine Bacteria (Negative) Medications Administered Piperacillin Sod/Tazobactam Sod (Zosyn) 4.5 gm in 120 mls @ 30 mls/hr IV NOW ONE Stop: 10/11/18 01:32 Last Infusion: 10/10/18 22:36 Dose: 0 mls/hr Documented by: [id number] Admin: 10/10/18 22:01 Dose: 30 mls/hr Documented by: [id number] Vancomycin HCl 1,500 mg/ (Sodium Chloride) 530 mls @ 200 mls/hr IV NOW ONE; Protocol Stop: 10/11/18 00:11 Last Admin: 10/10/18 22:58 Dose: 200 mls/hr Documented by: [id number] Discontinued Medications Sodium Chloride (Nss 1000ml) 1,000 mls @ 999 mls/hr IV .Q1H1M ONE Stop: 10/10/18 21:11 Last Infusion: 10/10/18 21:24 Dose: 0 mls/hr Documented by: [id number] Admin: 10/10/18 20:36 Dose: 999 mls/hr Documented by: [id number] Code Status & VTE Plan Code Status Full code VTE Prophylaxis Plan VTE Prophylaxis will be ordered: Yes Supervising Physician Co-Signing Physician Notes Attending addendum: I have physically seen this patient, have supervised the medical residents activities, and agree with the H&P unless as otherwise noted. Assessment and Plan: Infectious disease/catheter associated UTI/left lower extremity cellulitis- Placed on vancomycin IV and Zosyn IV. Follow urine cultures, wound cultures and blood cultures. Continue LR for rehydration, with associated mild acute kidney injury with creatinine 1.2 and baseline 0.9. Remainder of orders and notations as noted. 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
--- NOTE | 2018-10-11 00:18 | Emergency Department Note ---
Entered by Michelle Kwong acting as a scribe for Portillo Francis MD History of Present Illness General Chief complaint: Illness Stated complaint: ILLNESS Time Seen by Provider: 10/10/18 19:54 Source: patient and family (sister) History of Present Illness Onset (ago): hour(s) (this morning) Location: chest (illness) Pain Consistency: + other (worsening) Relieved By: + none Associated symptoms: + denies other symptoms (congestion), + weakness and + other (leg infection, warmness, high blood sugar); no cough The patient is a 62 year old M who presents to the Emergency Room with complaints of a worsening illness that started this morning. The patient states that he has not been feeling good all day. The majority of the HPI was provided by the patients sister. She states that the patient is handicapped due to his condition of Spina Bifida. She notes that the patient lives by himself but has help through a home nurse. She states that the home nurse usually wakes the patient up and helps the patient into a wheelchair at 7 am every morning. She notes that the patient today did not want to get out of bed. She states that the patient experienced weakness, leg infection, warmness, and high blood sugar today. She adds that these symptoms are usually associated with a UTI for the patient. The patient denies experiencing any coughing or congestion. The patients sister notes that the patient has a catheter in placed that is changed out every week. Home Medications Home Medications Medication Instructions Recorded Confirmed Type acetaminophen [Tylenol] 650 mg PO Q4H PRN 04/28/18 10/10/18 History ascorbic acid (vitamin C) [Vitamin 500 mg PO DAILY 04/28/18 10/10/18 History C] aspirin [Aspirin Low Dose] 81 mg PO DAILY 04/28/18 10/10/18 History cholecalciferol (vitamin D3) 2,000 units PO DAILY 04/28/18 10/10/18 History [Vitamin D3] finasteride 5 mg PO DAILY 04/28/18 10/10/18 History furosemide 40 mg PO DAILY 04/28/18 10/10/18 History gemfibrozil 600 mg PO BID 04/28/18 10/10/18 History lisinopril 2.5 mg PO DAILY 04/28/18 10/10/18 History magnesium oxide 400 mg PO DAILY 04/28/18 10/10/18 History metformin 1,000 mg PO BID 04/28/18 10/10/18 History niacin [Niacor] 2,500 mg PO HS 04/28/18 10/10/18 History polyethylene glycol 3350 [Miralax] 17 g PO DAILY PRN 04/28/18 10/10/18 History potassium chloride 20 meq PO DAILY 04/28/18 10/10/18 History propranolol 80 mg PO DAILY 04/28/18 10/10/18 History tramadol 50 mg PO BID 04/28/18 10/10/18 History acetic acid 1 irrig IRRIGATION DIRECTED 10/10/18 10/10/18 History sennosides-docusate sodium [Senna 1 tab PO BID 10/10/18 10/10/18 History Laxative-Stool Softener] Allergies Allergy/AdvReac Type Severity Reaction Status Date / Time No Known Allergies Allergy Verified 10/10/18 20:37 Past Med/Surg History Medical History HTN (hypertension) (Chronic) Spina bifida (Chronic) Cerebral palsy (Chronic) Diabetes (Chronic) Heart disease (Chronic) Pneumonia (Suspected) Family History Other Cancer Diabetes Heart disease Hypertension Social History Preferred Language: Sudanese Communication Ability: Effective Communication Ability Comment: [place], hears better from R ear Third Steel Pourer Required: No Beliefs That Will Affect Care: None Current Living Situation: Alone Current Living Situation Comment: has cargivers from [id number] and [id number] Feels Safe at Home: Yes Safety Concerns: Feels Safe At This Time Smoking Status: Never smoker Do You Dip or Chew Tobacco: No Hx Alcohol Use: No Hx Substance Use: No Review of Systems See HPI for pertinent positives & negatives. and A total of 10 systems reviewed and were otherwise negative Physical Exam Vital Signs Vital Signs - 24 hr 10/10/18 19:51 10/10/18 20:31 10/10/18 20:40 Temperature 36.9 C Temperature Source Oral Sepsis Recent Fever Within 48 Hours No Sepsis New/Unexplained Change in Mental Status No Sepsis Action Taken by Nursing No Action Required Pulse Rate 95 H 92 H 92 H Pulse Rate from SpO2 Sensor 90 91 H Respiratory Rate 20 25 H 26 H Respiratory Effort / Characteristics Non-Labored Spontaneous Respiratory Depth Normal Respiratory Pattern Regular Blood Pressure 104/65 110/67 Blood Pressure Mean 78 81 Pulse Oximetry 99 97 97 Oxygen Delivery Method Room Air 10/10/18 21:00 10/10/18 21:01 10/10/18 21:02 Temperature Temperature Source Sepsis Recent Fever Within 48 Hours Sepsis New/Unexplained Change in Mental Status Sepsis Action Taken by Nursing Pulse Rate 89 86 87 Pulse Rate from SpO2 Sensor 86 88 Respiratory Rate 26 H 26 H 24 Respiratory Effort / Characteristics Respiratory Depth Respiratory Pattern Blood Pressure 121/60 Blood Pressure Mean 80 Pulse Oximetry 90 92 97 Oxygen Delivery Method 10/10/18 21:30 10/10/18 21:31 10/10/18 22:00 Temperature Temperature Source Sepsis Recent Fever Within 48 Hours Sepsis New/Unexplained Change in Mental Status Sepsis Action Taken by Nursing Pulse Rate 91 H 87 91 H Pulse Rate from SpO2 Sensor 91 H 87 92 H Respiratory Rate 27 H 25 H 21 Respiratory Effort / Characteristics Respiratory Depth Respiratory Pattern Blood Pressure 119/62 Blood Pressure Mean 81 Pulse Oximetry 97 96 99 Oxygen Delivery Method 10/10/18 22:30 10/10/18 22:31 10/10/18 22:32 Temperature Temperature Source Sepsis Recent Fever Within 48 Hours Sepsis New/Unexplained Change in Mental Status Sepsis Action Taken by Nursing Pulse Rate 92 H 82 Pulse Rate from SpO2 Sensor 90 83 Respiratory Rate 29 H 27 H Respiratory Effort / Characteristics Respiratory Depth Respiratory Pattern Regular Blood Pressure 97/55 L Blood Pressure Mean 69 Pulse Oximetry 95 96 Oxygen Delivery Method Room Air 10/10/18 23:01 10/10/18 23:31 10/11/18 00:01 Temperature Temperature Source Sepsis Recent Fever Within 48 Hours Sepsis New/Unexplained Change in Mental Status Sepsis Action Taken by Nursing Pulse Rate 90 87 93 H Pulse Rate from SpO2 Sensor 93 H Respiratory Rate 28 H 25 H 28 H Respiratory Effort / Characteristics Respiratory Depth Respiratory Pattern Blood Pressure 112/58 L 109/59 L 109/52 L Blood Pressure Mean 76 75 71 Pulse Oximetry 98 96 97 Oxygen Delivery Method Room Air Room Air 10/11/18 00:31 Temperature Temperature Source Sepsis Recent Fever Within 48 Hours Sepsis New/Unexplained Change in Mental Status Sepsis Action Taken by Nursing Pulse Rate 87 Pulse Rate from SpO2 Sensor 88 Respiratory Rate 25 H Respiratory Effort / Characteristics Respiratory Depth Respiratory Pattern Blood Pressure 108/60 Blood Pressure Mean 76 Pulse Oximetry 96 Oxygen Delivery Method GENERAL: Awake, alert, ill-appearing HENT: Normocephalic, atraumatic. Oropharynx with dry mucous membranes and otherwise unremarkable. EYES: Normal conjunctiva. Sclera non-icteric. NECK: Supple. No nuchal rigidity. FROM. No JVD. RESPIRATORY: CTA bilaterally. CARDIAC: Regular rate, normal rhythm. Extremities warm and well perfused. Pulses equal. ABDOMEN: Soft, non-distended. No tenderness to palpation. No rebound or guarding. No masses. Suprapubic catheter site clean and intact without discharge. RECTAL: Deferred. MUSCULOSKELETAL: Chest examination reveals no tenderness. The back is symmetrical on inspection without obvious abnormality. There is no CVA tenderness to palpation. No joint edema. LOWER EXTREMITIES: Calves are equal size bilaterally and non-tender. Erythema and warmth to left lower leg with 2+ edema. Right middle phalanx of right foot with punctate wound, without erythema, warmth, or tenderness. NEURO: Normal sensorium. No sensory or motor deficits noted. SKIN: No rash or jaundice noted. Course 2003: The patient was evaluated in room B4B. A complete history and physical exam was performed. 2132: I re-checked the patient and updated him on his test results. 2209: I reviewed the patient's case with Dr. Brett Landaverde, [facility] Hospitalist. He will evaluate the patient for further management. Consultations Consultation #1: I reviewed the patient's case with Dr. Brett Landaverde [facility] Hospitalist. He will evaluate the patient for further management. Time: 22:10 Administered Medications Lactated Ringer's (Lr) 1,000 mls @ 80 mls/hr IV .[id number] [facility] Stop: 11/10/18 00:59 Last Admin: 10/11/18 02:08 Dose: 80 mls/hr Documented by: [id number] Piperacillin Sod/Tazobactam (Sod 3.375 gm/ Dextrose) 115 mls @ 28.75 mls/hr IV Q8H [facility]; Protocol Stop: 10/21/18 03:59 Last Admin: 10/11/18 03:16 Dose: 28.8 mls/hr Documented by: [id number] Discontinued Medications Sodium Chloride (Nss 1000ml) 1,000 mls @ 999 mls/hr IV .Q1H1M ONE Stop: 10/10/18 21:11 Last Infusion: 10/10/18 21:24 Dose: 0 mls/hr Documented by: [id number] Admin: 10/10/18 20:36 Dose: 999 mls/hr Documented by: [id number] Piperacillin Sod/Tazobactam Sod (Zosyn) 4.5 gm in 120 mls @ 30 mls/hr IV NOW ONE Stop: 10/11/18 01:32 Last Infusion: 10/10/18 22:36 Dose: 0 mls/hr Documented by: [id number] Admin: 10/10/18 22:01 Dose: 30 mls/hr Documented by: [id number] Vancomycin HCl 1,500 mg/ (Sodium Chloride) 530 mls @ 200 mls/hr IV NOW ONE; Protocol Stop: 10/11/18 00:11 Last Infusion: 10/11/18 02:08 Dose: 0 mls/hr Documented by: [id number] Admin: 10/10/18 22:58 Dose: 200 mls/hr Documented by: [id number] Medical Decision Making Differential Diagnosis Differential diagnosis includes: viral syndrome, otitis, pharyngitis, pneumonia, influenza, meningitis, urinary tract infection, sepsis, bacteremia, as well as others were entertained. Medical Records Attestation: I reviewed the patient's medical records. Home Medications Current Medication List: was personally reviewed by me Laboratory Data Attestation: I reviewed the patient's lab results. Result diagrams: 10/10/18 20:26 10/10/18 20:26 Lab Results 10/10/18 10/10/18 10/10/18 Range/Units 20:26 20:26 20:26 WBC 15.54 H (4.8-10.8) K/uL RBC 3.48 L (4.7-6.1) M/uL Hgb 12.0 L (14.0-18.0) g/dL Hct 33.5 L (42-52) % MCV 96.3 (80-100) fL MCH 34.5 H (25-34) pg MCHC 35.8 (32-36) g/dL RDW Std Deviation 49.4 H (36.4-46.3) fL RDW Coeff of Renée 14.0 (11.5-14.5) % Plt Count 229 (130-400) K/uL MPV 8.4 (7.4-10.4) fL Immature Gran % (Auto) 0.4 % Neut % (Auto) 93.5 % Lymph % (Auto) 3.5 % [place] % (Auto) 2.6 % Eos % (Auto) 0.0 % Baso % (Auto) 0.0 % Immature Gran # (Auto) 0.06 H (0.00-0.02) K/uL Neut # (Auto) 14.53 H (1.4-6.5) K/uL Lymph # (Auto) 0.55 L (1.2-3.4) K/uL [place] # (Auto) 0.40 (0.11-0.59) K/uL Eos # (Auto) 0.00 (0-0.5) K/uL Baso # (Auto) 0.00 (0-0.2) K/uL PT 12.4 H (9.0-12.0) Seconds INR 1.2 H (0.9-1.1) APTT 30.8 (21.0-31.0) Seconds PTT Ratio 1.1 Sodium 132 L (136-145) mmol/L Potassium 3.8 (3.5-5.1) mmol/L Chloride 95 L (98-107) mmol/L Carbon Dioxide 25 (21-32) mmol/L Anion Gap 12.0 H (3-11) BUN 16 (7-18) mg/dl Creatinine 1.23 (0.6-1.4) mg/dl Est Cr Clr Drug Dosing 60.6 ml/min Est GFR ( Amer) 71.5 Est GFR (Non-Af Amer) 61.7 BUN/Creatinine Ratio 12.6 (10-20) Glucose 217 H (70-99) mg/dl Lactate (0.4-2.0) mmol/L Calcium 9.9 (8.5-10.1) mg/dl Phosphorus 2.3 L (2.5-4.9) mg/dl Magnesium 2.1 (1.8-2.4) mg/dl Total Bilirubin 1.1 H (0.2-1) mg/dl Direct Bilirubin 0.3 H (0-0.2) mg/dl AST 20 (15-37) U/L ALT 19 (12-78) U/L Alkaline Phosphatase 74 (45-117) U/L Total Protein 7.9 (6.4-8.2) gm/dl Albumin 3.9 (3.4-5.0) gm/dl Globulin 4.0 (2.5-4.0) gm/dl Albumin/Globulin Ratio 1.0 (0.9-2) Urine Color Urine Appearance (Clear) Urine pH (4.5-7.5) Ur Specific [place] (1.000-1.030) Urine Protein (Negative) Urine Glucose (UA) (Negative) Urine Ketones (Negative) Urine Blood (Negative) Urine Nitrite (Negative) Urine Bilirubin (Negative) Urine Urobilinogen (Negative) Ur Leukocyte Esterase (Negative) Urine RBC (0-4) /hpf Urine WBC (0-5) /hpf Ur Epithelial Cells (0-5) /lpf Urine Bacteria (Negative) 10/10/18 10/10/18 10/11/18 Range/Units 20:26 Unknown 01:36 WBC (4.8-10.8) K/uL RBC (4.7-6.1) M/uL Hgb (14.0-18.0) g/dL Hct (42-52) % MCV (80-100) fL MCH (25-34) pg MCHC (32-36) g/dL RDW Std Deviation (36.4-46.3) fL RDW Coeff of Renée (11.5-14.5) % Plt Count (130-400) K/uL MPV (7.4-10.4) fL Immature Gran % (Auto) % Neut % (Auto) % Lymph % (Auto) % [place] % (Auto) % Eos % (Auto) % Baso % (Auto) % Immature Gran # (Auto) (0.00-0.02) K/uL Neut # (Auto) (1.4-6.5) K/uL Lymph # (Auto) (1.2-3.4) K/uL [place] # (Auto) (0.11-0.59) K/uL Eos # (Auto) (0-0.5) K/uL Baso # (Auto) (0-0.2) K/uL PT (9.0-12.0) Seconds INR (0.9-1.1) APTT (21.0-31.0) Seconds PTT Ratio Sodium (136-145) mmol/L Potassium (3.5-5.1) mmol/L Chloride (98-107) mmol/L Carbon Dioxide (21-32) mmol/L Anion Gap (3-11) BUN (7-18) mg/dl Creatinine (0.6-1.4) mg/dl Est Cr Clr Drug Dosing ml/min Est GFR ( Amer) Est GFR (Non-Af Amer) BUN/Creatinine Ratio (10-20) Glucose (70-99) mg/dl Lactate 2.3 H* 2.7 H* (0.4-2.0) mmol/L Calcium (8.5-10.1) mg/dl Phosphorus (2.5-4.9) mg/dl Magnesium (1.8-2.4) mg/dl Total Bilirubin (0.2-1) mg/dl Direct Bilirubin (0-0.2) mg/dl AST (15-37) U/L ALT (12-78) U/L Alkaline Phosphatase (45-117) U/L Total Protein (6.4-8.2) gm/dl Albumin (3.4-5.0) gm/dl Globulin (2.5-4.0) gm/dl Albumin/Globulin Ratio (0.9-2) Urine Color Yellow Urine Appearance Clear (Clear) Urine pH 5.5 (4.5-7.5) Ur Specific [place] 1.015 (1.000-1.030) Urine Protein 1+ H (Negative) Urine Glucose (UA) Negative (Negative) Urine Ketones Trace H (Negative) Urine Blood 3+ H (Negative) Urine Nitrite Positive A (Negative) Urine Bilirubin Negative (Negative) Urine Urobilinogen Negative (Negative) Ur Leukocyte Esterase 2+ H (Negative) Urine RBC (0-4) /hpf Urine WBC (0-5) /hpf Ur Epithelial Cells (0-5) /lpf Urine Bacteria (Negative) Imaging Data Radiologist's Impression: Radiology results as stated below per my review and the radiologist's interpretation: XR chest 1V portable CLINICAL HISTORY: Sepsis COMPARISON STUDY: Chest radiograph April 28, 2018. FINDINGS: Lung volumes are mildly diminished. This is unchanged. Cardiomediastinal is stable. Patient is mildly rotated. There is no pneumothorax or pleural effusion. Apparent hazy left basilar opacity is likely artifactual. The appearance of the chest is unchanged. IMPRESSION: No acute cardiopulmonary findings. No change in appearance of the chest. Electronically signed by: Casimiro Martínez M.D. 10/10/2018 8:56 PM ECG Data Attestation: I personally reviewed and interpreted this ECG as follows: Indication: other (illness) Rate (beats per minute): 90 Rhythm: normal sinus Findings: + other (normal axis); no acute ischemic change Blood Pressure Blood Pressure Findings: Normal blood pressure Blood Pressure Disposition: did not require urgent referral MDM Narrative The patient is a pleasant 62 y/o gentleman with a pmhx of spina bifiida who is bedbound with chronic indwelling suprapubic catheter, with h/o recurrent UTIs who presents to the emergency department with generalized weakness and feverishness per HPI. On arrival the patient is ill appearing but in NAD, AF, HR 90s and otherwise VSS. Patient appears clinically dry. On exam there is erythema and warmth to left lower leg with 2+ edema. WBC 15.5. H/H 12/33 improved from prior values. Platelets wnl. Lactate 2.3 though chemistry without acidosis. Cr. 1.2. LFTs unremarkable. After initial emptying of suprapubic catheter, only able to obtain urine dip and cx. Dip is nitrite positive and LE 2+. Patient has h/o of pseudomonas that is sensitive to Zosyn. Thus treated for sepsis with Zosyn and Vancomycin with possible urinary source as well as cellulitis. Case d/w Dr Landaverde, [facility] hospitalist, who will evaluated the patient for admission. Impression & Plan Sepsis, Cellulitis of left leg, Acute UTI (urinary tract infection) Critical Care Time I have personally spent greater than 45 minutes of critical care time in the direct management of this patient. This includes bedside care, interpretation of diagnostic studies, and testing, discussion with consultants, patient, and family members, and other required patient management activities. This 45 minutes is in excess of all separately billable procedures. Critical Care Time: Yes Total Critical Care Time: 45 Discharge Plan Visit Data *Final* Discharge Date/Time: 10/11/18 00:44 Chief Complaint: Illness Stated Complaint: ILLNESS ED Provider: Portillo Francis Discharge Problem: Sepsis, Cellulitis of left leg, Acute UTI (urinary tract infection) Patient Disposition: Admitted As Inpatient Discharge Instructions Interventions: ED Discharge Assessment Last Done: 10/11/18 00:44 Discharge Problem: Sepsis Qualifiers: Sepsis type: sepsis due to unspecified organism Qualified Code(s): A41.9 - Sepsis, unspecified organism The scribe's documentation has been prepared under my direction and personally reviewed by me in its entirety. I confirm that the note above accurately refle cts all work, treatment, procedures, and medical decision making performed by me.
[2018-10-11] MEDS ORDERED: GLUCOSE 10 TABS/TUBE PO PRN (01:00)
[2018-10-11] MEDS ORDERED: POLYETHYLENE (MIRALAX) 17 GM PACK PO PRN (01:00)
[2018-10-11] MEDS ORDERED: PIPERACILL/TAZOBAC CONSULT ACTIVE PRN (01:00)
[2018-10-11] MEDS ORDERED: ACETAMINOPHEN 325 MG TAB PO PRN (01:00)
[2018-10-11] MEDS ORDERED: GLUCAGON FOR INJ 1 MG VIAL SQ PRN (01:00)
[2018-10-11] MEDS ORDERED: CARBOHYDRATES FOR HYPOGLYCEMIA PO PRN (01:00)
[2018-10-11] MEDS ORDERED: DEXTROSE 50% 50 ML SYRINGE IV PRN (01:00)
[2018-10-11] MEDS ORDERED: GLUCOSE 40% GEL 15 GM TUBE PO PRN (01:00)
[2018-10-11] MEDS ORDERED: ACETIC ACID 0.25% IRRIG SOLN 1000 ML PLCT IR PRN (01:00)
[2018-10-11] MEDS: LACTATED RINGER'S 1,000 ML IV SCH ×2 (02:08→17:10)
[2018-10-11] MEDS: PIPERACILLIN/TAZOBACTAM 3.375 GM in DEXTROSE 5% 100 ML IV SCH ×3 (03:16→19:53)
[2018-10-11 06:20] LABS: Basophils # (auto) 0.01 K/uL (0-0.2); Basophils % (auto) 0.1 %; Hematocrit (blood only) 29.3 % (42-52); Hemoglobin 10.6 g/dL (14.0-18.0); Immature Granulocytes # (auto) 0.03 K/uL (0.00-0.02); Immature Granulocytes % (auto) 0.3 %; Lymphocytes # (auto) 0.47 K/uL (1.2-3.4); Lymphocytes % (auto) 4.5 %; Mean Corpuscular Hgb Conc 36.2 g/dL (32-36); Mean Corpuscular Volume 96.1 fL (80-100); Mean Platelet Volume 8.2 fL (7.4-10.4); Monocytes # (auto) 0.54 K/uL (0.11-0.59); Monocytes % (auto) 5.1 %; Neutrophils # (auto) 9.46 K/uL (1.4-6.5); Platelet Count 198 K/uL (130-400); Red Blood Count 3.05 M/uL (4.7-6.1); White Blood Count 10.51 K/uL (4.8-10.8)
[2018-10-11 06:58] LABS: Albumin Globulin Ratio 0.9 (0.9-2); Albumin Level 3.1 gm/dl (3.4-5.0); BUN Creatinine Ratio 16.2 (10-20); Calcium 8.7 mg/dl (8.5-10.1); Creatinine Clr Calc Pharmacy 74.5 ml/min; Est GFR (African American) 91.8; Est GFR (Non-African American) 79.2; Globulin 3.5 gm/dl (2.5-4.0); Total Protein 6.6 gm/dl (6.4-8.2)
[2018-10-11] MEDS: INSULIN ASPART 100 UNITS/ML 3 ML PEN SC SCH ×4 (09:37→21:21)
[2018-10-11] MEDS: ENOXAPARIN INJ 40 MG/0.4 ML SYR SQ SCH (09:39)
[2018-10-11] MEDS: GEMFIBROZIL 600 MG TAB PO SCH ×2 (09:40→20:31)
[2018-10-11] MEDS: FINASTERIDE 5 MG TAB PO SCH (09:40)
[2018-10-11] MEDS: POTASSIUM CHLORIDE 20 MEQ TABCR PO SCH (09:40)
[2018-10-11] MEDS: PROPRANOLOL HCL LA 80 MG CAPCR PO SCH (09:40)
[2018-10-11] MEDS: DOCUSATE SODIUM/SENNA 50/8.6MG TAB PO SCH ×2 (09:41→20:30)
[2018-10-11] MEDS: MAGNESIUM OXIDE 400 MG TAB PO SCH (09:41)
[2018-10-11] MEDS: CHOLECALCIFEROL 1,000 UNITS TAB PO SCH (09:41)
[2018-10-11] MEDS: ASPIRIN 81 MG ECTAB PO SCH (09:41)
[2018-10-11] MEDS: ASCORBIC ACID 500 MG TAB PO SCH (09:43)
[2018-10-11] MEDS: TRAMADOL HCL 50 MG TABLET PO SCH ×2 (09:43→20:32)
--- NOTE | 2018-10-11 10:10 | Pharmacy Report ---
Pharmacy Abx Initial Consult - Date of Service October 11, 2018 - Pharmacy Dosing Scope Date of Consult: 10/10/18 Consultation requested by: Dr. Darling Pharmacy is consulted to initiate Vancomycin and Zosyn IV dosing therapy, order appropriate labs and adjust drug dose/frequency. - Subjective The patient is a 62 year old M admitted on 10/10/18 23:48. - Objective Height: 5 ft 6 in Weight: 80.7 kg Vital Signs (Past 12hrs): Vital Signs Temp Pulse Pulse Resp BP BP Pulse Ox 10/11/18 08:46 37.2 C 104 H 20 121/73 93 10/11/18 00:31 87 25 H 108/60 96 10/11/18 00:01 93 H 28 H 109/52 L 97 10/10/18 23:31 87 25 H 109/59 L 96 10/10/18 23:01 90 28 H 112/58 L 98 10/10/18 22:31 82 27 H 97/55 L 96 10/10/18 22:30 92 H 29 H 95 10/10/18 22:00 91 H 21 99 Lab Results (24hrs): Laboratory Tests (24 Hours) 10/11/18 10/11/18 10/10/18 05:52 05:52 20:26 WBC 10.51 Neut # (Auto) 9.46 H Creatinine 1.00 1.23 Est Cr Clr Drug Dosing 74.5 60.6 10/10/18 20:26 WBC 15.54 H Neut # (Auto) 14.53 H Creatinine Est Cr Clr Drug Dosing Micro Results: 10/10/18 Unknown Urine Culture - Pending Urine,Suprapubic 10/10/18 20:23 Blood Culture - Pending Blood 10/10/18 20:26 Blood Culture - Pending Blood - Risk Factors for Resistance * History of 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 Patient currently receiving empiric vancomycin and Zosyn for possible catheter- associated UTI and concern for leg infection. Plan Vancomycin IV * Estimated PK Parameters: Vd 0.7 L/kg, Cosme 0.066 hr-1, t1/2 10.5 hr * Loading dose: 1500 mg (18 mg/kg) * Maintenance dose: 1000 mg IV (12 mg/kg) every 12 hours * Goal trough level for skin soft tissue and/or urinary tract infection: 10 to 15 mcg/mL * Will hold of on ordering trough level due to empiric nature of antibiotic selection - will order follow-up trough if med is to be continued Piperacillin/tazobactam * 4.5 g bolus administered over 30 minutes, then 3.375 g IV extended infusion every 8 hours for CrCl greater than 20 mL/min WBCs trending down from yesterday (15.5 -> 10.5) Improvement in SCr noted (1.23 -> 1.0 mg/dL) Urine culture from April grew Pseudomonas aeruginosa and Enterococcus faecalis (both susceptible to Zosyn) * Will follow culture and de-escalate if/when possible Pharmacy will continue to follow and will adjust dose/frequency as necessary. Thank you.
[2018-10-11] MEDS: VANCOMYCIN HCL 1,000 MG in SODIUM CHLORIDE 0.9% 250 ML IV SCH ×2 (11:04→23:38)
--- NOTE | 2018-10-11 16:51 | Hospitalist Progress Note ---
Date of Service October 11, 2018 Assessment & Plan (1) Weakness: 62-year-old male was admitted on 10 Oct 2018 for increased weakness and concern for leg infection. Weakness, catheter-associated urinary tract infection: By report onset of symptoms was earlier day of admission. He has a history of a chronic suprapubic catheter with previous UTIs. - Continue vanc/Zosyn - Follow urine culture from 10/10 Left leg cellulitis: Unclear time of duration. There are couple of small toe wounds that may be contributing. - Above vancomycin and Zosyn will cover. Elevated creatinine: Admit Cr 1.2. Recent comparisons around Cr 0.9. Given IVF bolus. - Returned to normal on 10/11 Ongoing medical issues: - Hypertension, hyperlipidemia: Continue home aspirin, gemfibrozil, niacin, potassium, magnesium, propranolol. --- We will hold lisinopril and Lasix due to mild increased creatinine. - Macrocytic anemia: Previous work-up in April 2018. Current admit Hb 12 and normal MCV. - Diabetes: At home is on metformin. Admit glucose 217. --- We will cover with insulin sliding scale as inpatient. Holding home metformin. - Cerebral palsy, spina bifida: Continue home MiraLAX, sennosides/docusate, tramadol. - Possible BPH: Continue home finasteride. Code status: Full code. Diet: Heart healthy, DM2 diet. DVT prophy: Lovenox 40 daily. PT/OT: Deferred. Disbo: We will admit to [facility]. At baseline lives at home with home health and family support. (2) Catheter-associated urinary tract infection: (3) Cellulitis of left leg: (4) Elevated serum creatinine: (5) Tachypnea: (6) Hyponatremia: (7) Hypertension: (8) Hyperlipidemia: (9) History of macrocytic anemia: (10) Diabetes: (11) Cerebral palsy: (12) Spina bifida: Subjective Feeling well today. Somewhat lethargic, but otherwise good. No fever or chills, no dysuria. Reports no fevers/chills, chest pain, shortness of breath, abdominal pain, nausea, or vomiting. Physical Exam Constitutional: WD/WN, vitals as above Eyes: EOM intact bilaterally; no conjunctival abnormality ENMT: external ear and nose normal, oropharynx normal Neck: trachea midline, no thyromegaly normal visual inspection Respiratory: normal respiratory effort, lungs clear to auscultation no respiratory distress Cardiovascular: RRR, no murmur, no edema Gastrointestinal (Abdomen): Inspection/Auscultation: abdomen normal to inspection; abdomen not distended Musculoskeletal: no cyanosis or clubbing, extremities motor strength 5/5 Skin: no rashes, warm and dry Neurologic: moves all extremities and awake Psychiatric: Orientation: alert, oriented to person and cooperative Results & Data Vital Signs (Past 12 Hours) Vital Signs Temp Pulse Resp BP Pulse Ox 10/11/18 16:04 36.6 C 90 20 117/73 94 10/11/18 08:46 37.2 C 104 H 20 121/73 93 (1) Catheter-associated urinary tract infection Indwelling urinary catheter type: cystostomy catheter Encounter type: initial encounter Qualified Code(s): T83.510A - Infection and inflammatory reaction due to cystostomy catheter, initial encounter; N39.0 - Urinary tract infection, site not specified (2) Hyperlipidemia Hyperlipidemia type: unspecified Qualified Code(s): E78.5 - Hyperlipidemia, unspecified (3) Diabetes Diabetes mellitus type: type 2 Diabetes mellitus residential insulin use: without intermodal dispatcher use Diabetes mellitus complication status: without complication Qualified Code(s): E11.9 - Type 2 diabetes mellitus without complications
[2018-10-11] MEDS ORDERED: POTASSIUM CHLORIDE PWD 20 MEQ PACK PO STA (17:04)
[2018-10-11] MEDS: NIACIN 500 MG TAB PO SCH (20:29)
[2018-10-12] MEDS: PIPERACILLIN/TAZOBACTAM 3.375 GM in DEXTROSE 5% 100 ML IV SCH ×3 (05:33→20:23)
[2018-10-12] MEDS: LACTATED RINGER'S 1,000 ML IV SCH ×2 (05:38→17:47)
[2018-10-12 06:44] LABS: Hematocrit (blood only) 29.1 % (42-52); Hemoglobin 10.4 g/dL (14.0-18.0); Mean Corpuscular Hgb Conc 35.7 g/dL (32-36); Mean Corpuscular Volume 96.4 fL (80-100); Mean Platelet Volume 7.7 fL (7.4-10.4); Platelet Count 165 K/uL (130-400); RDW Standard Deviation 49.7 fL (36.4-46.3); Red Blood Count 3.02 M/uL (4.7-6.1); White Blood Count 7.17 K/uL (4.8-10.8)
[2018-10-12 07:30] LABS: BUN Creatinine Ratio 15.1 (10-20); Calcium 8.6 mg/dl (8.5-10.1); Creatinine Clr Calc Pharmacy 93.1 ml/min; Est GFR (African American) 109.4; Est GFR (Non-African American) 94.4; Potassium 3.1 mmol/L (3.5-5.1)
[2018-10-12] MEDS: GEMFIBROZIL 600 MG TAB PO SCH ×2 (08:08→20:25)
[2018-10-12] MEDS: TRAMADOL HCL 50 MG TABLET PO SCH ×2 (08:08→20:33)
[2018-10-12] MEDS: FINASTERIDE 5 MG TAB PO SCH (08:09)
[2018-10-12] MEDS: ASPIRIN 81 MG ECTAB PO SCH (08:17)
[2018-10-12] MEDS: POTASSIUM CHLORIDE 20 MEQ TABCR PO SCH (08:17)
[2018-10-12] MEDS: DOCUSATE SODIUM/SENNA 50/8.6MG TAB PO SCH ×2 (08:17→20:25)
[2018-10-12] MEDS: PROPRANOLOL HCL LA 80 MG CAPCR PO SCH (08:18)
[2018-10-12] MEDS: ASCORBIC ACID 500 MG TAB PO SCH (08:18)
[2018-10-12] MEDS: ENOXAPARIN INJ 40 MG/0.4 ML SYR SQ SCH (08:18)
[2018-10-12] MEDS: CHOLECALCIFEROL 1,000 UNITS TAB PO SCH (08:18)
[2018-10-12] MEDS: MAGNESIUM OXIDE 400 MG TAB PO SCH (08:18)
[2018-10-12] MEDS: INSULIN ASPART 100 UNITS/ML 3 ML PEN SC SCH ×4 (08:20→20:33)
--- NOTE | 2018-10-12 10:25 | Pharmacy Report ---
Pharmacy Abx Dose Short Note - Date of Service October 12, 2018 - Assessment & Plan Assessment * Mr Humphreys is a 62 year old M receiving Vancomycin/Zosyn for treatment of SSTI/UTI * Vancomycin was originally ordered x48 hours for empiric coverage, but was extended to 10 days for SSTI tx. * SCr improved overnight from 1.0 --> 0.8, shortening the predicted half-life of vancomycin * Vanc dose increased this morning in light of today's changes. * WBC continue to improve. Blood cultures are negative to date. * Infectious disease consult has been placed. Plan Vancomycin * Change to Vancomycin 1250 mg IV every 12 hours * Goal trough level for SSTI: 10 to 15 mcg/mL, with unknown C/S * Trough level ordered for: 10/13 prior to the 3rd maintenance dose with new regimen -- this may not represent steady-state Zosyn 3.375gm IV q8h Pharmacy will continue to follow and will adjust dose/frequency as necessary. Thank you.
--- NOTE | 2018-10-12 11:04 | Infectious Disease Consult ---
Date of Consultation October 12, 2018 Assessment & Plan (1) Cellulitis of left lower extremity: continue IV abx for now, follow blood cultures, negative to date, and clinical response. hopefully can change to po abx soon. UA negative, suspect pinpoint growith from suprapubic cath reflects colonization, not uti. will follow. 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 denies f/c at home. brother at bedside during my exam. no pain in leg, no f/c. was placed on vanco and zosyn in Er, remains on this, tolerating well. denies any trauma to leg. no abd pain, has suprapubic cath, working well. UA negative. wbc was 15 in ER, 7.7 today. overall, feeling better today. Doppler negative for clot. CXR negative, breathing well, no cp, sob, cough. 5/4 blood cultures negative to date x 2. ID asked to eval for cellulitis Allergies Allergy/AdvReac Type Severity Reaction Status Date / Time No Known Allergies Allergy Verified 10/10/18 20:37 Home Medications Home Medications Medication Instructions Recorded Confirmed Type acetaminophen [Tylenol] 650 mg PO Q4H PRN 04/28/18 10/10/18 History ascorbic acid (vitamin C) [Vitamin 500 mg PO DAILY 04/28/18 10/10/18 History C] aspirin [Aspirin Low Dose] 81 mg PO DAILY 04/28/18 10/10/18 History cholecalciferol (vitamin D3) 2,000 units PO DAILY 04/28/18 10/10/18 History [Vitamin D3] finasteride 5 mg PO DAILY 04/28/18 10/10/18 History furosemide 40 mg PO DAILY 04/28/18 10/10/18 History gemfibrozil 600 mg PO BID 04/28/18 10/10/18 History lisinopril 2.5 mg PO DAILY 04/28/18 10/10/18 History magnesium oxide 400 mg PO DAILY 04/28/18 10/10/18 History metformin 1,000 mg PO BID 04/28/18 10/10/18 History niacin [Niacor] 2,500 mg PO HS 04/28/18 10/10/18 History polyethylene glycol 3350 [Miralax] 17 g PO DAILY PRN 04/28/18 10/10/18 History potassium chloride 20 meq PO DAILY 04/28/18 10/10/18 History propranolol 80 mg PO DAILY 04/28/18 10/10/18 History tramadol 50 mg PO BID 04/28/18 10/10/18 History acetic acid 1 irrig IRRIGATION DIRECTED 10/10/18 10/10/18 History sennosides-docusate sodium [Senna 1 tab PO BID 10/10/18 10/10/18 History Laxative-Stool Softener] Patient History Medical History HTN (hypertension) (Chronic) Spina bifida (Chronic) Cerebral palsy (Chronic) Diabetes (Chronic) Heart disease (Chronic) Pneumonia (Suspected) Family History Other Cancer Diabetes Heart disease Hypertension Social History Preferred Language: Congolese Communication Ability: Effective Communication Ability Comment: [place], hears better from R ear Manager Respiratory Care Required: No Beliefs That Will Affect Care: None Current Living Situation: Alone Current Living Situation Comment: has cargivers from [id number] and [id number] Feels Safe at Home: Yes Safety Concerns: Feels Safe At This Time Smoking Status: Never smoker Do You Dip or Chew Tobacco: No Hx Alcohol Use: No Hx Substance Use: No Review of Systems Review of Systems: All systems reviewed & are unremarkable except as noted in HPI & below Physical Exam Constitutional: WD/WN, vitals as above Eyes: PERRL, conjunctivae normal, anicteric sclerae ENMT: external ear and nose normal, oropharynx normal Neck: normal visual inspection Respiratory: normal respiratory effort, lungs clear to auscultation Cardiovascular: RRR, no murmur, no edema Gastrointestinal (Abdomen): normal bowel sounds, soft, nontender, no hepatosplenomegaly Musculoskeletal: Head/Neck/Chest: normocephalic and head atraumatic Skin: no rashes, warm and dry lle with warmth, erythema noted to knee, no edema, non tender. multiple small, healed scabs noted on ankle, no open wounds Psychiatric: A+Ox3, euthymic affect Results & Data Vital Signs (Past 12 Hours) Vital Signs Temp Pulse Resp BP Pulse Ox 10/12/18 07:30 36.6 C 90 18 105/65 95 10/12/18 00:07 36.7 C 82 18 103/63 95 Laboratory Results Microbiology 10/10/18 Unknown Urine,Suprapubic Urine Culture - Final More than three types of organisms present, all moderate counts mixed probable skin jeffrey. No further identifications or sensitivities to follow. 10/10/18 20:26 Blood Blood Culture - Preliminary No growth to date. 10/10/18 20:23 Blood Blood Culture - Preliminary No growth to date.
[2018-10-12] MEDS: VANCOMYCIN HCL 1,250 MG in SODIUM CHLORIDE 0.9% 250 ML IV SCH ×2 (12:20→23:18)
--- NOTE | 2018-10-12 12:21 | Hospitalist Progress Note ---
Date of Service October 12, 2018 Assessment & Plan (1) Weakness: 62-year-old male was admitted on 10 Oct 2018 for increased weakness and concern for leg infection. Weakness, catheter-associated urinary tract infection: By report onset of symptoms was earlier day of admission. He has a history of a chronic suprapubic catheter with previous UTIs. - Continue vanc/Zosyn - Follow urine culture from 10/10: showed moderate counts of 3 or more organisms; likely skin jeffrey Left leg cellulitis: Unclear time of duration. There are couple of small toe wounds that may be contributing. - Above vancomycin and Zosyn will cover. Will continue until response. ID is on the case as well Elevated creatinine: Admit Cr 1.2. Recent comparisons around Cr 0.9. Given IVF bolus. - Returned to normal on 10/11 Ongoing medical issues: - Hypertension, hyperlipidemia: Continue home aspirin, gemfibrozil, niacin, potassium, magnesium, propranolol. --- We will hold lisinopril and Lasix due to mild increased creatinine. - Macrocytic anemia: Previous work-up in April 2018. Current admit Hb 12 and normal MCV. - Diabetes: At home is on metformin. Admit glucose 217. --- We will cover with insulin sliding scale as inpatient. Holding home metformin. - Cerebral palsy, spina bifida: Continue home MiraLAX, sennosides/docusate, tramadol. - Possible BPH: Continue home finasteride. Code status: Full code. Diet: Heart healthy, DM2 diet. DVT prophy: Lovenox 40 daily. PT/OT: Deferred. Disbo: Spent 35 minutes in management of patient. (2) Catheter-associated urinary tract infection: (3) Cellulitis of left leg: (4) Elevated serum creatinine: (5) Tachypnea: (6) Hyponatremia: (7) Hypertension: (8) Hyperlipidemia: (9) History of macrocytic anemia: (10) Diabetes: (11) Cerebral palsy: (12) Spina bifida: Subjective Patient appears to be more awake, he speaks in a slow manner. Unsure if this is his baseline. Family was not at bedside. His affected leg continues to be red. Review of Systems Review of Systems: Unobtainable due to mental health condition Physical Exam Physical Exam: Constitutional: WD/WN, vitals as above Eyes: EOM intact bilaterally; no conjunctival abnormality ENMT: external ear and nose normal, oropharynx normal Neck: trachea midline, no thyromegaly normal visual inspection Respiratory: normal respiratory effort, lungs clear to auscultation no respiratory distress Cardiovascular: RRR, no murmur, no edema Gastrointestinal (Abdomen): Inspection/Auscultation: abdomen normal to inspection; abdomen not distended Musculoskeletal: no cyanosis or clubbing, extremities motor strength 5/5 Skin: no rashes, warm and dry Neurologic: moves all extremities and awake Psychiatric: Orientation: alert, oriented to person and cooperative Results & Data Vital Signs (Past 12 Hours) Vital Signs Temp Pulse Resp BP Pulse Ox 10/12/18 07:30 36.6 C 90 18 105/65 95 (1) Catheter-associated urinary tract infection Encounter type: initial encounter Indwelling urinary catheter type: cystostomy catheter Qualified Code(s): T83.510A - Infection and inflammatory reaction due to cystostomy catheter, initial encounter; N39.0 - Urinary tract infection, site not specified (2) Diabetes Diabetes mellitus complication status: without complication Diabetes mellitus shelter insulin use: without manager terminal use Diabetes mellitus type: type 2 Qualified Code(s): E11.9 - Type 2 diabetes mellitus without complications (3) Hyperlipidemia Hyperlipidemia type: unspecified Qualified Code(s): E78.5 - Hyperlipidemia, unspecified
[2018-10-12] MEDS: NIACIN 500 MG TAB PO SCH (20:25)
[2018-10-13] MEDS: PIPERACILLIN/TAZOBACTAM 3.375 GM in DEXTROSE 5% 100 ML IV SCH ×3 (05:09→21:12)
[2018-10-13] MEDS: LACTATED RINGER'S 1,000 ML IV SCH ×2 (06:39→16:28)
[2018-10-13] MEDS: TRAMADOL HCL 50 MG TABLET PO SCH ×2 (08:29→21:11)
[2018-10-13] MEDS: CHOLECALCIFEROL 1,000 UNITS TAB PO SCH (08:29)
[2018-10-13] MEDS: DOCUSATE SODIUM/SENNA 50/8.6MG TAB PO SCH ×2 (08:30→21:09)
[2018-10-13] MEDS: PROPRANOLOL HCL LA 80 MG CAPCR PO SCH (08:30)
[2018-10-13] MEDS: ASPIRIN 81 MG ECTAB PO SCH (08:31)
[2018-10-13] MEDS: FINASTERIDE 5 MG TAB PO SCH (08:31)
[2018-10-13] MEDS: MAGNESIUM OXIDE 400 MG TAB PO SCH (08:31)
[2018-10-13] MEDS: ASCORBIC ACID 500 MG TAB PO SCH (08:31)
[2018-10-13] MEDS: GEMFIBROZIL 600 MG TAB PO SCH ×2 (08:31→21:08)
[2018-10-13] MEDS: POTASSIUM CHLORIDE 20 MEQ TABCR PO SCH ×2 (08:32→21:07)
[2018-10-13] MEDS: ENOXAPARIN INJ 40 MG/0.4 ML SYR SQ SCH (08:32)
[2018-10-13] MEDS: INSULIN ASPART 100 UNITS/ML 3 ML PEN SC SCH ×4 (08:33→21:07)
[2018-10-13] MEDS ORDERED: VANCOMYCIN TROUGH ONE (10:30)
[2018-10-13] MEDS: VANCOMYCIN HCL 1,250 MG in SODIUM CHLORIDE 0.9% 250 ML IV SCH ×2 (11:01→23:26)
[2018-10-13 11:09] LABS: BUN Creatinine Ratio 8.1 (10-20); Calcium 8.5 mg/dl (8.5-10.1); Creatinine Clr Calc Pharmacy 100.6 ml/min; Est GFR (Non-African American) 97.5; Potassium 2.8 mmol/L (3.5-5.1)
[2018-10-13] MEDS: POTASSIUM CHLORIDE / WTR 10 MEQ/100 ML PLCT IV SCH ×3 (14:09→16:25)
--- NOTE | 2018-10-13 14:42 | Infectious Disease Progress Nt ---
Date of Service October 13, 2018 Assessment & Plan (1) Cellulitis of left lower extremity: continue IV abx for now, follow blood cultures, negative to date, and clinical response. hopefully can change to po abx soon. UA negative, suspect pinpoint growith from suprapubic cath reflects colonization, not uti. will follow. Subjective remains afebrile. remains on vanco and zoysn. no am labs. admission blood cultures 5/4 negative x 2 sets. Results & Data Vital Signs (Past 12 Hours) Vital Signs Temp Pulse Resp BP Pulse Ox 10/13/18 07:00 36.6 C 89 18 130/77 96 Laboratory Results Microbiology 10/10/18 Unknown Urine,Suprapubic Urine Culture - Final More than three types of organisms present, all moderate counts mixed probable skin jeffrey. No further identifications or sensitivities to follow. 10/10/18 20:26 Blood Blood Culture - Preliminary No growth to date. 10/10/18 20:23 Blood Blood Culture - Preliminary No growth to date.
[2018-10-13] MEDS: NIACIN 500 MG TAB PO SCH (21:08)
--- NOTE | 2018-10-13 22:47 | Hospitalist Progress Note ---
Date of Service October 13, 2018 Assessment & Plan (1) Weakness: 62-year-old male was admitted on 10 Oct 2018 for increased weakness and concern for leg infection. Weakness, catheter-associated urinary tract infection: By report onset of symptoms was earlier day of admission. He has a history of a chronic suprapubic catheter with previous UTIs. - Continue vanc/Zosyn - Follow urine culture from 10/10: showed moderate counts of 3 or more organisms; likely skin jeffrey Left leg cellulitis: Unclear time of duration. There are couple of small toe wounds that may be contributing. - Above vancomycin and Zosyn will cover. Will continue until response. ID is on the case as well - Skin continues to show erythema. will monitor. Elevated creatinine: Admit Cr 1.2. Recent comparisons around Cr 0.9. Given IVF bolus. - Returned to normal on 10/11 Ongoing medical issues: - Hypertension, hyperlipidemia: Continue home aspirin, gemfibrozil, niacin, potassium, magnesium, propranolol. --- We will hold lisinopril and Lasix due to mild increased creatinine. - Macrocytic anemia: Previous work-up in April 2018. Current admit Hb 12 and normal MCV. - Diabetes: At home is on metformin. Admit glucose 217. --- We will cover with insulin sliding scale as inpatient. Holding home metformin. - Cerebral palsy, spina bifida: Continue home MiraLAX, sennosides/docusate, tramadol. - Possible BPH: Continue home finasteride. Code status: Full code. Diet: Heart healthy, DM2 diet. DVT prophy: Lovenox 40 daily. PT/OT: Deferred. Disbo: Spent 25 minutes in management of patient. (2) Catheter-associated urinary tract infection: (3) Cellulitis of left leg: (4) Elevated serum creatinine: (5) Tachypnea: (6) Hyponatremia: (7) Hypertension: (8) Hyperlipidemia: (9) History of macrocytic anemia: (10) Diabetes: (11) Cerebral palsy: (12) Spina bifida: Subjective Patient reports feeling well. Patient denies any fever, chills, nausea, vomiting. Review of Systems Review of Systems: All systems reviewed & are unremarkable except as noted in HPI & below Physical Exam Physical Exam: Constitutional: WD/WN, vitals as above Eyes: EOM intact bilaterally; no conjunctival abnormality ENMT: external ear and nose normal, oropharynx normal Neck: trachea midline, no thyromegaly normal visual inspection Respiratory: normal respiratory effort, lungs clear to auscultation no respiratory distress Cardiovascular: RRR, no murmur, no edema Gastrointestinal (Abdomen): Inspection/Auscultation: abdomen normal to inspection; abdomen not distended Musculoskeletal: no cyanosis or clubbing, extremities motor strength 5/5 Skin: no rashes, warm and dry, left foot continues to show erythema. Neurologic: moves all extremities and awake Psychiatric: Orientation: alert, oriented to person and cooperative Results & Data Vital Signs (Past 12 Hours) Vital Signs Temp Pulse Resp BP Pulse Ox 10/13/18 15:00 36.7 C 74 18 120/77 97 (1) Catheter-associated urinary tract infection Encounter type: initial encounter Indwelling urinary catheter type: cystostomy catheter Qualified Code(s): T83.510A - Infection and inflammatory reaction due to cystostomy catheter, initial encounter; N39.0 - Urinary tract infection, site not specified (2) Diabetes Diabetes mellitus complication status: without complication Diabetes mellitus intermediate frame tender insulin use: without intermediate frame tender use Diabetes mellitus type: type 2 Qualified Code(s): E11.9 - Type 2 diabetes mellitus without complications (3) Hyperlipidemia Hyperlipidemia type: unspecified Qualified Code(s): E78.5 - Hyperlipidemia, unspecified
[2018-10-14] MEDS: PIPERACILLIN/TAZOBACTAM 3.375 GM in DEXTROSE 5% 100 ML IV SCH ×3 (03:56→20:18)
[2018-10-14] MEDS: LACTATED RINGER'S 1,000 ML IV SCH ×2 (05:56→17:46)
[2018-10-14] MEDS: GEMFIBROZIL 600 MG TAB PO SCH ×2 (08:26→20:30)
[2018-10-14] MEDS: POTASSIUM CHLORIDE 20 MEQ TABCR PO SCH ×3 (08:27→20:30)
[2018-10-14] MEDS: FINASTERIDE 5 MG TAB PO SCH (08:27)
[2018-10-14] MEDS: DOCUSATE SODIUM/SENNA 50/8.6MG TAB PO SCH ×2 (08:27→20:29)
[2018-10-14] MEDS: MAGNESIUM OXIDE 400 MG TAB PO SCH (08:27)
[2018-10-14] MEDS: PROPRANOLOL HCL LA 80 MG CAPCR PO SCH (08:27)
[2018-10-14] MEDS: CHOLECALCIFEROL 1,000 UNITS TAB PO SCH (08:27)
[2018-10-14] MEDS: ASCORBIC ACID 500 MG TAB PO SCH (08:28)
[2018-10-14] MEDS: ASPIRIN 81 MG ECTAB PO SCH (08:28)
[2018-10-14] MEDS: ENOXAPARIN INJ 40 MG/0.4 ML SYR SQ SCH (08:30)
[2018-10-14] MEDS: INSULIN ASPART 100 UNITS/ML 3 ML PEN SC SCH ×4 (08:31→20:44)
[2018-10-14] MEDS: TRAMADOL HCL 50 MG TABLET PO SCH ×2 (08:34→20:22)
--- NOTE | 2018-10-14 10:30 | Infectious Disease Progress Nt ---
Date of Service October 14, 2018 Assessment & Plan (1) Cellulitis of left lower extremity: can continue IV abx for now, blood cultures negative, afebrile, clinically improving. upon d/c would change to doxy 100mg po bid with food and levaquin 500mg po daily for 7 more days. no contraindication to d/c from ID standpoint when otherwise stable. Subjective pt seen in followup, doing well. tolerating abx, no f/c. no pain in leg, improving. blood cultures remain negative. remains afebrile. no n/v/d/abd pain, no cp, sob, cough, wheeze. Review of Systems Review of Systems: All systems reviewed & are unremarkable except as noted in HPI & below Physical Exam Constitutional: WD/WN, vitals as above Eyes: PERRL, conjunctivae normal, anicteric sclerae ENMT: external ear and nose normal, oropharynx normal Neck: normal visual inspection Respiratory: normal respiratory effort, lungs clear to auscultation Cardiovascular: RRR, no murmur, no edema Gastrointestinal (Abdomen): normal bowel sounds, soft, nontender, no hepatosplenomegaly Musculoskeletal: Head/Neck/Chest: normocephalic and head atraumatic Skin: no rashes, warm and dry lle erythema improving, no warmth, edema improved, min erythema remains. overall improving. Psychiatric: A+Ox3, euthymic affect Results & Data Vital Signs (Past 12 Hours) Vital Signs Temp Pulse Resp BP Pulse Ox 10/14/18 07:34 36.6 C 88 18 133/75 96 10/13/18 23:59 36.7 C 77 20 138/80 95 Laboratory Results Microbiology 10/10/18 Unknown Urine,Suprapubic Urine Culture - Final More than three types of organisms present, all moderate counts mixed probable skin jeffrey. No further identifications or sensitivities to follow. 10/10/18 20:26 Blood Blood Culture - Preliminary No growth to date. 10/10/18 20:23 Blood Blood Culture - Preliminary No growth to date.
[2018-10-14] MEDS: VANCOMYCIN HCL 1,250 MG in SODIUM CHLORIDE 0.9% 250 ML IV SCH ×2 (10:49→23:36)
[2018-10-14 15:01] VITALS: TEMP 97.7
[2018-10-14] MEDS: NIACIN 500 MG TAB PO SCH (20:26)
--- NOTE | 2018-10-14 23:56 | Hospitalist Progress Note ---
Date of Service October 14, 2018 Assessment & Plan (1) Weakness: 62-year-old male was admitted on 10 Oct 2018 for increased weakness and concern for leg infection. Weakness, catheter-associated urinary tract infection: By report onset of symptoms was earlier day of admission. He has a history of a chronic suprapubic catheter with previous UTIs. - Continue vanc/Zosyn - Follow urine culture from 10/10: showed moderate counts of 3 or more organisms; likely skin jeffrey Left leg cellulitis: Unclear time of duration. There are couple of small toe wounds that may be contributing. - Above vancomycin and Zosyn will cover. Will continue until response. ID is on the case as well - Erythema appears to finally be improving. will monitor. -Antibiotics will be switched to oral tomorrow and plan will be to likely discharge. -Will discuss with ID on final regimen. Elevated creatinine: Admit Cr 1.2. Recent comparisons around Cr 0.9. Given IVF bolus. - Returned to normal on 10/11 Hypokalemia: Replacing level. Ongoing medical issues: - Hypertension, hyperlipidemia: Continue home aspirin, gemfibrozil, niacin, potassium, magnesium, propranolol. --- We will hold lisinopril and Lasix due to mild increased creatinine. - Macrocytic anemia: Previous work-up in April 2018. Current admit Hb 12 and normal MCV. - Diabetes: At home is on metformin. Admit glucose 217. --- We will cover with insulin sliding scale as inpatient. Holding home metformin. - Cerebral palsy, spina bifida: Continue home MiraLAX, sennosides/docusate, tramadol. - Possible BPH: Continue home finasteride. Code status: Full code. Diet: Heart healthy, DM2 diet. DVT prophy: Lovenox 40 daily. PT/OT: Deferred. Disbo: Spent 25 minutes in management of patient. (2) Catheter-associated urinary tract infection: (3) Cellulitis of left leg: (4) Elevated serum creatinine: (5) Tachypnea: (6) Hyponatremia: (7) Hypertension: (8) Hyperlipidemia: (9) History of macrocytic anemia: (10) Diabetes: (11) Cerebral palsy: (12) Spina bifida: Subjective Patient reports improvement. Patient has noticed an improvement in his eyrthema of the affected leg. No fever or chills. Review of Systems Review of Systems: All systems reviewed & are unremarkable except as noted in HPI & below Physical Exam Physical Exam: Constitutional: WD/WN, vitals as above Eyes: EOM intact bilaterally; no conjunctival abnormality ENMT: external ear and nose normal, oropharynx normal Neck: trachea midline, no thyromegaly normal visual inspection Respiratory: normal respiratory effort, lungs clear to auscultation no respiratory distress Cardiovascular: RRR, no murmur, no edema Gastrointestinal (Abdomen): Inspection/Auscultation: abdomen normal to inspection; abdomen not distended Musculoskeletal: no cyanosis or clubbing, extremities motor strength 5/5 Skin: no rashes, warm and dry, left foot shows improvement of the erythema. Neurologic: moves all extremities and awake Psychiatric: Orientation: alert, oriented to person and cooperative Results & Data Vital Signs (Past 12 Hours) Vital Signs Temp Pulse Resp BP BP Pulse Ox 10/14/18 23:00 36.5 C 73 20 122/68 95 10/14/18 15:00 36.5 C 76 20 157/77 H 97 (1) Catheter-associated urinary tract infection Indwelling urinary catheter type: cystostomy catheter Encounter type: initial encounter Qualified Code(s): T83.510A - Infection and inflammatory reaction due to cystostomy catheter, initial encounter; N39.0 - Urinary tract infection, site not specified (2) Hyperlipidemia Hyperlipidemia type: unspecified Qualified Code(s): E78.5 - Hyperlipidemia, unspecified (3) Diabetes Diabetes mellitus type: type 2 Diabetes mellitus oysterman insulin use: without mcc use Diabetes mellitus complication status: without complication Qualified Code(s): E11.9 - Type 2 diabetes mellitus without complications
[2018-10-15] MEDS: PIPERACILLIN/TAZOBACTAM 3.375 GM in DEXTROSE 5% 100 ML IV SCH ×2 (03:33→12:25)
[2018-10-15 07:30] VITALS: BP 124/78; PULSE 93; O2SAT 98
[2018-10-15] MEDS: ASCORBIC ACID 500 MG TAB PO SCH (08:25)
[2018-10-15] MEDS: CHOLECALCIFEROL 1,000 UNITS TAB PO SCH (08:25)
[2018-10-15] MEDS: DOCUSATE SODIUM/SENNA 50/8.6MG TAB PO SCH (08:25)
[2018-10-15] MEDS: GEMFIBROZIL 600 MG TAB PO SCH (08:25)
[2018-10-15] MEDS: FINASTERIDE 5 MG TAB PO SCH (08:25)
[2018-10-15] MEDS: PROPRANOLOL HCL LA 80 MG CAPCR PO SCH (08:25)
[2018-10-15] MEDS: MAGNESIUM OXIDE 400 MG TAB PO SCH (08:25)
[2018-10-15] MEDS: ASPIRIN 81 MG ECTAB PO SCH (08:26)
[2018-10-15] MEDS: POTASSIUM CHLORIDE 20 MEQ TABCR PO SCH ×2 (08:26)
[2018-10-15] MEDS: ENOXAPARIN INJ 40 MG/0.4 ML SYR SQ SCH (08:27)
[2018-10-15] MEDS: INSULIN ASPART 100 UNITS/ML 3 ML PEN SC SCH ×2 (08:28→12:24)
[2018-10-15] MEDS: TRAMADOL HCL 50 MG TABLET PO SCH (08:29)
[2018-10-15] MEDS: VANCOMYCIN HCL 1,250 MG in SODIUM CHLORIDE 0.9% 250 ML IV SCH (12:15)
[2018-10-15 12:58] LABS: BUN Creatinine Ratio 10.5 (10-20); Calcium 9.3 mg/dl (8.5-10.1); Creatinine Clr Calc Pharmacy 116.4 ml/min; Est GFR (African American) 119.9; Est GFR (Non-African American) 103.5; Potassium 3.4 mmol/L (3.5-5.1)
[2018-10-15] MEDS ORDERED: levoFLOXacin 500 MG TAB PO SCH (13:00)
[2018-10-15] MEDS ORDERED: DOXYCYCLINE HYCLATE 100 MG CAP PO SCH (21:00)
--- NOTE | 2018-10-22 07:33 | Discharge Summary ---
Date of Service October 15, 2018 Admission HPI Per Admitting Provider 62-year-old male presented emergency department apparently complaining of increased fatigue and generalized weakness beginning earlier in the day (October 10). Of note, the history for H&P purposes was completely taken from the medical record and conversations with both the emergency department physician and bedside nurse. At present, patient is sleeping soundly, arouses briefly to pain, but immediately goes back to sleep. Per the emergency department physician, earlier the patient was initially conversational but a bit slower due to baseline cerebral palsy. History was per patient's sister. Apparently the patient did not want to get out of bed earlier in the day. Sister was concerned about increased weakness, a potential leg infection, and higher than normal blood sugar. She noted that he has a suprapubic catheter in place that is changed out every week. --- Past medical history includes cerebral palsy, spina bifida, hypertension, hyperlipidemia, microcytic anemia, diabetes, possibly BPH. --- Past surgical history is presently unclear. --- Social history includes reportedly is living at home with family and nursing support. Principal Diagnosis cellulitis of left lower extremities Discharge Exam Constitutional: WD/WN, vitals as above Eyes: EOM intact bilaterally; no conjunctival abnormality ENMT: external ear and nose normal, oropharynx normal Neck: trachea midline, no thyromegaly normal visual inspection Respiratory: normal respiratory effort, lungs clear to auscultation no respi ratory distress Cardiovascular: RRR, no murmur, no edema Gastrointestinal (Abdomen): Inspection/Auscultation: abdomen normal to inspection; abdomen not distended Musculoskeletal: no cyanosis or clubbing, extremities motor strength 5/5 Skin: no rashes, warm and dry, left foot shows improvement of the erythema. Neurologic: moves all extremities and awake Psychiatric: Orientation: alert, oriented to person and cooperative Discharge Data Allergies Allergy/AdvReac Type Severity Reaction Status Date / Time No Known Allergies Allergy Verified 10/10/18 20:37 Consultations 10/10/18 21:35 ED Decision to Admit Stat 10/12/18 08:26 Consult Infectious Diseases Routine Ordered Studies 10/10/18 21:35 US venous doppler LE LT Stat Hospital Course (1) Weakness: 62-year-old male was admitted on 10 Oct 2018 for increased weakness and concern for leg infection. Weakness, catheter-associated urinary tract infection: By report onset of symptoms was earlier day of admission. He has a history of a chronic suprapubic catheter with previous UTIs. - Continue vanc/Zosyn - Follow urine culture from 10/10: showed moderate counts of 3 or more organisms; likely skin jeffrey Left leg cellulitis: Unclear time of duration. There are couple of small toe wounds that may be contributing. - Above vancomycin and Zosyn will cover. Will continue until response. ID is on the case as well - Erythema appears to finally be improving. will monitor. - ID recommended doxy and lavofloxacin for 7 more days as s final regimen. Elevated creatinine: Admit Cr 1.2. Recent comparisons around Cr 0.9. Given IVF bolus. - Returned to normal on 10/11 Hypokalemia: Replacing level. Ongoing medical issues: - Hypertension, hyperlipidemia: Continue home aspirin, gemfibrozil, niacin, potassium, magnesium, propranolol. --- We will hold lisinopril and Lasix due to mild increased creatinine. - Macrocytic anemia: Previous work-up in April 2018. Current admit Hb 12 and normal MCV. - Diabetes: At home is on metformin. will resume home meds. - Cerebral palsy, spina bifida: Continue home MiraLAX, sennosides/docusate, tramadol. - Possible BPH: Continue home finasteride. Code status: Full code. (2) Catheter-associated urinary tract infection: (3) Cellulitis of left leg: (4) Elevated serum creatinine: (5) Tachypnea: (6) Hyponatremia: (7) Hypertension: (8) Hyperlipidemia: (9) History of macrocytic anemia: (10) Diabetes: (11) Cerebral palsy: (12) Spina bifida: Total Time Total Time Spent Total Time Spent (In Minutes): 32 Total Time Includes: Examination of the Patient, Discharge Planning and Medication Reconciliation Discharge Plan Discharge Items Patient Disposition: Home - Self-Care Reason For Visit: UTI, LEG CELLULITIS Discharge Diagnosis: Leg cellulitis Discharge Goals: Decrease discomfort Activity: Resume your previous activity Non-emergency contact: Primary Care Provider Call non-emergency contact if: you have any medication questions Follow-up/Referrals: Gaudencio Chowdhury MD [Primary Care Provider] - 10/26/18 2:30 pm (Please, follow up with Dr. Chowdhury on FridayOctober 26 at 2:30 pm. *If you need to change this appointment, call the office at [phone]. .) Diet: Carb Consistent or DM2 Addtl Provider Instructions: Patient will be discharged on oral antibiotics for 7 more days Prescriptions: New doxycycline hyclate 100 mg Capsule 100 mg PO BID Qty: 14 RF: 0 levofloxacin 500 mg Tablet 500 mg PO DAILY@1100 Qty: 7 RF: 0 Continued furosemide 40 mg Tablet 40 mg PO DAILY RF: 0 acetaminophen [Tylenol] 325 mg Tablet 650 mg PO Q4H PRN (Reason: Pain) RF: 0 aspirin [Aspirin Low Dose] 81 mg Tablet,Delayed Release (Dr/Ec) 81 mg PO DAILY RF: 0 tramadol 50 mg Tablet 50 mg PO BID RF: 0 magnesium oxide 400 mg (241.3 mg magnesium) Tablet 400 mg PO DAILY RF: 0 ascorbic acid (vitamin C) [Vitamin C] 500 mg Tablet 500 mg PO DAILY RF: 0 gemfibrozil 600 mg Tablet 600 mg PO BID RF: 0 metformin 1,000 mg Tablet 1,000 mg PO BID RF: 0 propranolol 80 mg Capsule,Extended Release 24 Hr 80 mg PO DAILY RF: 0 niacin [Niacor] 500 mg Tablet 2,500 mg PO HS RF: 0 polyethylene glycol 3350 [Miralax] 17 gram/dose Powder 17 g PO DAILY PRN (Reason: Constipation) RF: 0 lisinopril 2.5 mg Tablet 2.5 mg PO DAILY RF: 0 finasteride 5 mg Tablet 5 mg PO DAILY RF: 0 cholecalciferol (vitamin D3) [Vitamin D3] 2,000 unit Capsule 2,000 units PO DAILY RF: 0 potassium chloride 20 mEq Tablet Extended Release 20 meq PO DAILY RF: 0 acetic acid 0.25 % solution 1 irrig irrigation DIRECTED RF: 0 sennosides-docusate sodium [Senna Laxative-Stool Softener] 8.6-50 mg Tablet 1 tab PO BID RF: 0 Stand-Alone Forms: [facility] Discharge Orders: Discharge Order (Routine); Ordered 10/15/18 Ordered By: Raj York Admission Data Admit Date/Time: 10/10/18 23:48 Attending Provider: Raj York Admit Provider: Brett Landaverde Primary Care Provider: Gaudencio Chowdhury Other Providers: Tom Woodson ; Mynor Meeks Service: Medical Other Interventions: Discharge Summary Assessment (RN) Last Done: 10/15/18 13:30 DC Date/Time DO NOT enter until pt leaves facility: 10/15/18 15:18
== END 2018-10-15 15:18 | disposition home or self-care (01) | DRG 699 ==
LOC: ED 19:44 → SUATTDRO 23:48 → 4E 23:48

== ENCOUNTER 2019-01-05 08:59 | Inpatient (IN) ==
[2019-01-05] MEDS ORDERED: LACTATED RINGER'S 1,000 ML IV ONE (10:19)
[2019-01-05 11:07] LABS: Eosinophils # (auto) 0.01 K/uL (0-0.5); Eosinophils % (auto) 0.1 %; Hemoglobin 12.8 g/dL (14.0-18.0); Immature Granulocytes # (auto) 0.06 K/uL (0.00-0.02); Immature Granulocytes % (auto) 0.3 %; Lymphocytes # (auto) 0.27 K/uL (1.2-3.4); Lymphocytes % (auto) 1.4 %; Mean Corpuscular Hgb Conc 35.6 g/dL (32-36); Mean Corpuscular Volume 95.7 fL (80-100); Mean Platelet Volume 8.7 fL (7.4-10.4); Monocytes # (auto) 0.56 K/uL (0.11-0.59); Monocytes % (auto) 2.8 %; Neutrophils # (auto) 18.97 K/uL (1.4-6.5); Neutrophils % (auto) 95.4 %; Platelet Count 195 K/uL (130-400); RDW Coefficient of Variation 13.8 % (11.5-14.5); RDW Standard Deviation 48.1 fL (36.4-46.3); Red Blood Count 3.76 M/uL (4.7-6.1); White Blood Count 19.87 K/uL (4.8-10.8)
[2019-01-05 11:27] LABS: Alanine Aminotransferase 19 U/L (12-78); Albumin Level 4.2 gm/dl (3.4-5.0); Aspartate Aminotransferase 17 U/L (15-37); BUN Creatinine Ratio 13.1 (10-20); Blood Urea Nitrogen 14 mg/dl (7-18); Calcium 9.5 mg/dl (8.5-10.1); Carbon Dioxide 25 mmol/L (21-32); Chloride 97 mmol/L (98-107); Est GFR (African American) 82.1; Est GFR (Non-African American) 70.9; Glucose 231 mg/dl (70-99); Potassium 3.8 mmol/L (3.5-5.1); Sodium 134 mmol/L (136-145)
[2019-01-05 11:29] LABS: Alkaline Phosphatase 79 U/L (45-117); Bilirubin,Total 0.9 mg/dl (0.2-1); Globulin 4.3 gm/dl (2.5-4.0); Total Protein 8.5 gm/dl (6.4-8.2)
[2019-01-05] MEDS ORDERED: VANCOMYCIN HCL 2,000 MG in SODIUM CHLORIDE 0.9% 500 ML IV ONE (11:30)
[2019-01-05] MEDS ORDERED: VANCOMYCIN CONSULT ACTIVE PRN ×2 (11:30→16:19)
--- NOTE | 2019-01-05 11:36 | Ultrasound Report ---
US venous doppler LE RT HISTORY: 63 years-old Male erythema, RLE. Immobile @ baseline acute pain and swelling of the right l ower cavity COMPARISON: None available TECHNIQUE: Multiple real time sonographic images of the right lower extremity deep venous structures were obtained assessing grayscale appearance, color and spectral flow FINDINGS: Study is limited secondary to lack of patient cooperation and condition. Normal flow, compressibility , phasicity and augmentation of the right lower extremity deep venous structures. IMPRESSION: No sonographic evidence of deep venous thrombosis. The above report was generated using voice recognition software. It may contain grammatical, syntax o r spelling errors. Electronically signed by: Howard Roland M.D. 01/05/2019 11:34 AM
[2019-01-05 12:16] LABS: Appearance Urine Cloudy (Clear); Bacteria Urine Automated 3+ (Negative); Bilirubin Urine Negative (Negative); Blood Urine 1+ (Negative); Color Urine Yellow; Epithelial Cell Urine Auto 0-5 /lpf (0-5); Glucose Urine UA 3+ (Negative); Ketones Urine 2+ (Negative); Leukocyte Esterase Urine 2+ (Negative); Nitrite Urine Positive (Negative); Specific Gravity Urine 1.021 (1.000-1.030); Urobilinogen Urine Negative (Negative); WBC Urine Automated >30 /hpf (0-5)
[2019-01-05 12:17] LABS: Protein Urine 1+ (Negative)
--- NOTE | 2019-01-05 12:29 | XRay Report ---
XR chest 1V portable HISTORY: Cellulitis of leg COMPARISON: Chest 10/10/2018. FINDINGS: There are low lung volumes. The heart remains mildly enlarged. No pleural effusions. No pne umothorax. No new focal lung consolidations to suggest pneumonia. No evidence for pulmonary edema. IMPRESSION: No significant change compared to the prior study. No acute process. Electronically signed by: Rd Ty M.D. 01/05/2019 12:28 PM
--- NOTE | 2019-01-05 13:34 | History & Physical Report ---
Date of Service January 05, 2019 Assessment & Plan (1) Sepsis: Documented by tachycardia, leukocytosis, altered mental status, elevated lactic acid. Treat underlying infectious processes of the right lower extremity and UTI. Present on Admission?: Yes (2) Cellulitis of right lower leg: Continue intravenous vancomycin started in the ED Present on Admission?: Yes (3) UTI (urinary tract infection) due to urinary indwelling catheter: Continue intravenous cefepime and vancomycin. Await blood and urine culture results Present on Admission?: Yes (4) Metabolic encephalopathy: Provide supportive care. Treat infectious processes. N.p.o. until mental status improved Present on Admission?: Yes (5) Spina bifida: Supportive care Present on Admission?: Yes (6) Cerebral palsy: Supportive care Present on Admission?: Yes (7) Diabetes: Sliding scale insulin coverage. Currently n.p.o. Present on Admission?: Yes (8) DNR (do not resuscitate): Per family request History of Present Illness Chief Complaint: Altered mental status, right lower extremity redness Primary Care Provider: Mitchel Chowdhury MD 63-year-old male with cerebral palsy and spina bifida. 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 He also has redness about the right lower extremity below the knee. He was sent to the ED for evaluation. He appears to be septic with leukocytosis, tachycardia, altered mental status. Lactic acid 2.4. He has a suprapubic catheter and urine analysis reveals 3+ bacteria. There is evidence of right lower extremity cellulitis. Venous Doppler of the right lower extremity is negative for DVT. He will be given vancomycin and cefepime. Blood and urine cultures have been ordered. He will be kept n.p.o. until his mental status improves . The family has requested a DNR status Allergies Allergy/AdvReac Type Severity Reaction Status Date / Time No Known Allergies Allergy Verified 11/10/18 10:07 Home Medications Home Medications Medication Instructions Recorded Confirmed Type acetaminophen [Tylenol] 650 mg PO Q4H PRN 04/28/18 01/05/19 History ascorbic acid (vitamin C) [Vitamin 500 mg PO DAILY 04/28/18 01/05/19 History C] aspirin [Aspirin Low Dose] 81 mg PO DAILY 04/28/18 01/05/19 History finasteride 5 mg PO DAILY 04/28/18 01/05/19 History furosemide 40 mg PO DAILY 04/28/18 01/05/19 History gemfibrozil 600 mg PO BID 04/28/18 01/05/19 History lisinopril 2.5 mg PO DAILY 04/28/18 01/05/19 History metformin 1,000 mg PO BID 04/28/18 01/05/19 History niacin [Niacor] 2,500 mg PO HS 04/28/18 01/05/19 History polyethylene glycol 3350 [Miralax] 17 g PO DAILY PRN 04/28/18 01/05/19 History propranolol 80 mg PO DAILY 04/28/18 01/05/19 History sennosides-docusate sodium [Senna 1 tab PO BID 10/10/18 01/05/19 History Laxative-Stool Softener] blood-glucose meter #1 ea 11/05/18 01/05/19 History cholecalciferol (vitamin D3) 1,000 3,000 units PO DAILY tab 11/05/18 01/05/19 History unit (25 mcg) tablet diaper,brief,adult,disposable #32 ea 11/05/18 01/05/19 History magnesium oxide 400 mg (241.3 mg 400 mg PO .COMPLEX 11/05/18 01/05/19 History magnesium) tablet potassium chloride ER 20 mEq 20 meq PO BID tab 11/05/18 01/05/19 History tablet,extended release acetic acid 0.25 % irrigation 1 irrig IRRIGATION DIRECTED 11/10/18 01/05/19 Rx solution #500 ml blood sugar diagnostic strips #100 ea 11/10/18 01/05/19 Rx tramadol 50 mg tablet 50 mg PO BID #60 tab 11/10/18 01/05/19 Rx miconazole nitrate 2 % topical 1 appln TOP BID #30 gm 01/04/19 01/05/19 Rx cream Past Med/Surg History Medical History HTN (hypertension) (Chronic) Cerebral palsy (Chronic) Diabetes (Chronic) Heart disease (Chronic) Spina bifida (Chronic) Pneumonia (Suspected) Family History Other Cancer Diabetes Heart disease Hypertension Social History Preferred Language: Mohawk Communication Ability: Effective Beliefs That Will Affect Care: None Current Living Situation: Alone Current Living Situation Comment: has cargivers from [id number] and [id number] Feels Safe at Home: Yes Smoking Status: Unknown if ever smoked Hx Alcohol Use: No Hx Substance Use: No Review of Systems Review of Systems: Unobtainable due to cognitive status Physical Exam Physical Exam: General-semiconscious state. Nonverbal. He does withdraw all 4 extremities to noxious stimuli HEENT-head atraumatic and normocephalic, TMs intact bilaterally, pupils equal and reactive to light, extraocular muscles intact Neck-no lymphadenopathy or thyromegaly, trachea midline Chest-clear to auscultation percussion. No rales wheezing or rhonchi Cardiac-tachycardic regular rate, normal S1 and S2, no JVD Abdomen-normal bowel sounds, nontender, no hepatosplenomegaly Extremities-no cyanosis, clubbing, or edema. Right lower extremity erythema below the knee involving the foot Neuro-baseline cerebral palsy Psych-cannot assess Results & Data Vital Signs (Past 12 Hours) Vital Signs Temp Pulse Pulse Resp BP BP Pulse Ox 01/05/19 12:19 103 H 20 116/75 98 01/05/19 10:42 105 H 20 120/72 97 01/05/19 09:34 36.4 C L 120 H 18 135/84 98 Laboratory Results 01/05/19 10:41 01/05/19 10:41 PG Care Time/CCT Total # of Minutes Spent Total Time Spent with Patient: Total time spent is greater than 50% in coordination of care (as documented) at patient's floor/unit and/or counseling patient: (1) Sepsis Sepsis type: sepsis due to unspecified organism Qualified Code(s): A41.9 - Sepsis, unspecified organism (2) Diabetes Diabetes mellitus type: type 2 Diabetes mellitus intermediate designer insulin use: without intermediate designer use Diabetes mellitus complication status: with neurologic complications Diabetes mellitus complication detail: with unspecified neuropathy Qualified Code(s): E11.40 - Type 2 diabetes mellitus with diabetic neuropathy, unspecified
--- NOTE | 2019-01-05 15:18 | Emergency Department Note ---
Entered by Matilda Perez acting as a scribe for Portillo Francis MD History of Present Illness General Chief complaint: Arm Pain Stated complaint: arm pain Time Seen by Provider: 01/05/19 09:06 Source: patient and other (caregiver) History of Present Illness Onset (ago): hour(s) (this morning) Location: upper extremity (bilateral) Pain Consistency: + now resolved and + other (episode) Associated symptoms: + denies other symptoms (nausea, vomiting, diarrhea, fever, chills, sweats, new weakness, or other pain) The patient is a 63 year old male with a history of cerebral palsy that is presenting to the Emergency Room with complaints of an episode of bilateral arm pain that started today. The patient is a poor historian secondary to his mental status. The patients caregiver states that the patient was found with his suprapubic catheter detached and complaining of arm pain. The patient denies thi s occurred. He states that his catheter bag was leaking but notes that the leaking stopped when the bag was replaced. He reports that he leaked around 1 cup of non-bloody, non-turbid urine. He denies any nausea, vomiting, diarrhea, fever, chills, sweats, new weakness, or other pain. He notes that he lives with a caregiver. The patient states that he has a history of a neurogenic bladder. He reports that he is able to move around in his wheelchair on his own. Home Medications Home Medications Medication Instructions Recorded Confirmed Type acetaminophen [Tylenol] 650 mg PO Q4H PRN 04/28/18 01/05/19 History ascorbic acid (vitamin C) [Vitamin 500 mg PO DAILY 04/28/18 01/05/19 History C] aspirin [Aspirin Low Dose] 81 mg PO DAILY 04/28/18 01/05/19 History finasteride 5 mg PO DAILY 04/28/18 01/05/19 History furosemide 40 mg PO DAILY 04/28/18 01/05/19 History gemfibrozil 600 mg PO BID 04/28/18 01/05/19 History lisinopril 2.5 mg PO DAILY 04/28/18 01/05/19 History metformin 1,000 mg PO BID 04/28/18 01/05/19 History niacin [Niacor] 2,500 mg PO HS 04/28/18 01/05/19 History polyethylene glycol 3350 [Miralax] 17 g PO DAILY PRN 04/28/18 01/05/19 History propranolol 80 mg PO DAILY 04/28/18 01/05/19 History sennosides-docusate sodium [Senna 1 tab PO BID 10/10/18 01/05/19 History Laxative-Stool Softener] blood-glucose meter #1 ea 11/05/18 01/05/19 History cholecalciferol (vitamin D3) 1,000 3,000 units PO DAILY tab 11/05/18 01/05/19 History unit (25 mcg) tablet diaper,brief,adult,disposable #32 ea 11/05/18 01/05/19 History magnesium oxide 400 mg (241.3 mg 400 mg PO .COMPLEX 11/05/18 01/05/19 History magnesium) tablet potassium chloride ER 20 mEq 20 meq PO BID tab 11/05/18 01/05/19 History tablet,extended release acetic acid 0.25 % irrigation 1 irrig IRRIGATION DIRECTED 11/10/18 01/05/19 Rx solution #500 ml blood sugar diagnostic strips #100 ea 11/10/18 01/05/19 Rx tramadol 50 mg tablet 50 mg PO BID #60 tab 11/10/18 01/05/19 Rx miconazole nitrate 2 % topical 1 appln TOP BID #30 gm 01/04/19 01/05/19 Rx cream Allergies Allergy/AdvReac Type Severity Reaction Status Date / Time No Known Allergies Allergy Verified 11/10/18 10:07 Past Med/Surg History Medical History Metabolic encephalopathy (Acute) UTI (urinary tract infection) due to urinary indwelling catheter (Acute) Cellulitis of right lower leg (Acute) HTN (hypertension) (Chronic) Cerebral palsy (Chronic) Diabetes (Chronic) Heart disease (Chronic) Spina bifida (Chronic) Pneumonia (Suspected) Family History Other Cancer Diabetes Heart disease Hypertension Social History Preferred Language: Danish Communication Ability: Effective Communication Ability Comment: EMMONAK, right ear better Chief Librarian Branch Required: No Beliefs That Will Affect Care: None Current Living Situation: Alone Current Living Situation Comment: has cargivers from [id number] and [id number] Other Information That Helps Us Care for You: No Feels Safe at Home: Yes Safety Concerns: Feels Safe At This Time Smoking Status: Never smoker Do You Dip or Chew Tobacco: No Second Hand Exposure: No Tobacco Cessation Education Requested by Patient: No Hx Alcohol Use: No Hx Substance Use: No Review of Systems See HPI for pertinent positives & negatives. and A total of 10 systems reviewed and were otherwise negative Physical Exam Vital Signs Vital Signs - 24 hr 01/05/19 09:34 01/05/19 10:42 01/05/19 12:19 Temperature 36.4 C L Temperature Source Oral Sepsis Recent Fever Within 48 Hours No Sepsis Action Taken by Nursing No Action Required Pulse Rate 120 H Pulse Rate [Apical] 105 H 103 H Respiratory Rate 18 20 20 Respiratory Depth Normal Blood Pressure 135/84 Blood Pressure [Left Arm] 120/72 116/75 Blood Pressure Mean 101 Blood Pressure Mean [Left Arm] 88 88 Pulse Oximetry 98 97 98 Oxygen Delivery Method Room Air Room Air Room Air 01/05/19 13:44 Temperature Temperature Source Sepsis Recent Fever Within 48 Hours Sepsis Action Taken by Nursing Pulse Rate Pulse Rate [Apical] 73 Respiratory Rate 20 Respiratory Depth Blood Pressure Blood Pressure [Left Arm] 160/78 H Blood Pressure Mean Blood Pressure Mean [Left Arm] 105 Pulse Oximetry 99 Oxygen Delivery Method Room Air GENERAL: Awake, alert, chronically ill-appearing, in no distress HENT: Normocephalic, atraumatic. Oropharynx with dry mucous membranes and otherwise unremarkable. EYES: Normal conjunctiva. Sclera non-icteric. EOMI. No nystamgus. PEARRL. NECK: Supple. No nuchal rigidity. FROM. No JVD. RESPIRATORY: Clear to auscultation. CARDIAC: Tachcardic rate, normal rhythm. Extremities warm and well perfused. Pulses equal. ABDOMEN: Soft, non-distended. No tenderness to palpation. No rebound or guarding. No masses. Suprapubic catheter site with scant serous discharge. No purulence or ttp. RECTAL: Deferred. MUSCULOSKELETAL: Chest examination reveals no tenderness. The back is symmetrical on inspection without obvious abnormality. There is no CVA tenderness to palpation. No joint edema. LOWER EXTREMITIES: Calves are equal size bilaterally and non-tender. No discoloration. 2+ right lower extremity edema with mild erythema and warmth. Distal PMS intact. NEURO: Normal sensorium. No sensory or motor deficits noted from baseline. SKIN: No rash or jaundice noted. Course 0915: The patient was seen and evaluated by the Resident Physician at this time. History and physical were discussed with me. 1046:The patient was evaluated in room B06. A complete history and physical examination was performed. 1120: The Resident spoke with the patient's caregiver at this time. She states that the patient was admitted last time for a UTI and cellulitis. She reports that the patient is far from his usual baseline and states that he is usually responsive and able to perform basic tasks with minimal help. 1138: The Resident discussed the patients case with DMITRIY Trujillo, who will evaluate the patient for further management and care. 1209: Upon reevaluation, the patient is resting comfortably. I discussed laboratory and radiographic results with the patient. He verbalized agreement of the treatment plan. The patient will be evaluated for further management and care. Consultations Consultation #1: The Resident discussed the patients case with DMITRIY Trujillo, who will evaluate the patient for further management and care. Time: 11:38 Administered Medications Discontinued Medications Lactated Ringer's (Lr) 1,000 mls @ 999 mls/hr IV .Q1H1M ONE Stop: 01/05/19 11:19 Last Infusion: 01/05/19 11:52 Dose: 0 mls/hr Documented by: [id number] Admin: 01/05/19 10:43 Dose: 999 mls/hr Documented by: [id number] Vancomycin HCl 2,000 mg/ (Sodium Chloride) 540 mls @ 200 mls/hr IV NOW ONE; Protocol Stop: 01/05/19 14:11 Last Infusion: 01/05/19 14:58 Dose: 0 mls/hr Documented by: [id number] Admin: 01/05/19 12:18 Dose: 200 mls/hr Documented by: [id number] Medical Decision Making Differential Diagnosis Differential diagnosis: Etiologies such as cellulitis, abscess, MRSA infection, DVT, necrotizing fasciitis, dermatitis, drug eruption, as well as others were entertained. Medical Records Attestation: I reviewed the patient's medical records. Home Medications Current Medication List: was personally reviewed by me Laboratory Data Attestation: I reviewed the patient's lab results. Result diagrams: 01/05/19 10:41 01/05/19 10:41 Lab Results 01/05/19 01/05/19 01/05/19 Range/Units 10:41 10:41 11:59 WBC 19.87 H (4.8-10.8) K/uL RBC 3.76 L (4.7-6.1) M/uL Hgb 12.8 L (14.0-18.0) g/dL Hct 36.0 L (42-52) % MCV 95.7 (80-100) fL MCH 34.0 (25-34) pg MCHC 35.6 (32-36) g/dL RDW Std Deviation 48.1 H (36.4-46.3) fL RDW Coeff of Renée 13.8 (11.5-14.5) % Plt Count 195 (130-400) K/uL MPV 8.7 (7.4-10.4) fL Immature Gran % (Auto) 0.3 % Neut % (Auto) 95.4 % Lymph % (Auto) 1.4 % [place] % (Auto) 2.8 % Eos % (Auto) 0.1 % Baso % (Auto) 0.0 % Immature Gran # (Auto) 0.06 H (0.00-0.02) K/uL Neut # (Auto) 18.97 H (1.4-6.5) K/uL Lymph # (Auto) 0.27 L (1.2-3.4) K/uL [place] # (Auto) 0.56 (0.11-0.59) K/uL Eos # (Auto) 0.01 (0-0.5) K/uL Baso # (Auto) 0.00 (0-0.2) K/uL Sodium 134 L (136-145) mmol/L Potassium 3.8 (3.5-5.1) mmol/L Chloride 97 L (98-107) mmol/L Carbon Dioxide 25 (21-32) mmol/L Anion Gap 12.0 H (3-11) BUN 14 (7-18) mg/dl Creatinine 1.09 (0.6-1.4) mg/dl Est Cr Clr Drug Dosing Not Reportable Est GFR ( Amer) 82.1 Est GFR (Non-Af Amer) 70.9 BUN/Creatinine Ratio 13.1 (10-20) Glucose 231 H (70-99) mg/dl Lactate 2.4 H* (0.4-2.0) mmol/L Calcium 9.5 (8.5-10.1) mg/dl Total Bilirubin 0.9 (0.2-1) mg/dl AST 17 (15-37) U/L ALT 19 (12-78) U/L Alkaline Phosphatase 79 (45-117) U/L Total Protein 8.5 H (6.4-8.2) gm/dl Albumin 4.2 (3.4-5.0) gm/dl Globulin 4.3 H (2.5-4.0) gm/dl Albumin/Globulin Ratio 1.0 (0.9-2) Urine Color Urine Appearance (Clear) Urine pH (4.5-7.5) Ur Specific [place] (1.000-1.030) Urine Protein (Negative) Urine Glucose (UA) (Negative) Urine Ketones (Negative) Urine Blood (Negative) Urine Nitrite (Negative) Urine Bilirubin (Negative) Urine Urobilinogen (Negative) Ur Leukocyte Esterase (Negative) Urine WBC (Auto) (0-5) /hpf Urine RBC (Auto) (0-4) /hpf U Hyaline Cast (Auto) (0-5) /lpf U Epithel Cells (Auto) (0-5) /lpf Urine Bacteria (Auto) (Negative) 01/05/19 Range/Units 12:00 WBC (4.8-10.8) K/uL RBC (4.7-6.1) M/uL Hgb (14.0-18.0) g/dL Hct (42-52) % MCV (80-100) fL MCH (25-34) pg MCHC (32-36) g/dL RDW Std Deviation (36.4-46.3) fL RDW Coeff of Renée (11.5-14.5) % Plt Count (130-400) K/uL MPV (7.4-10.4) fL Immature Gran % (Auto) % Neut % (Auto) % Lymph % (Auto) % [place] % (Auto) % Eos % (Auto) % Baso % (Auto) % Immature Gran # (Auto) (0.00-0.02) K/uL Neut # (Auto) (1.4-6.5) K/uL Lymph # (Auto) (1.2-3.4) K/uL [place] # (Auto) (0.11-0.59) K/uL Eos # (Auto) (0-0.5) K/uL Baso # (Auto) (0-0.2) K/uL Sodium (136-145) mmol/L Potassium (3.5-5.1) mmol/L Chloride (98-107) mmol/L Carbon Dioxide (21-32) mmol/L Anion Gap (3-11) BUN (7-18) mg/dl Creatinine (0.6-1.4) mg/dl Est Cr Clr Drug Dosing Est GFR ( Amer) Est GFR (Non-Af Amer) BUN/Creatinine Ratio (10-20) Glucose (70-99) mg/dl Lactate (0.4-2.0) mmol/L Calcium (8.5-10.1) mg/dl Total Bilirubin (0.2-1) mg/dl AST (15-37) U/L ALT (12-78) U/L Alkaline Phosphatase (45-117) U/L Total Protein (6.4-8.2) gm/dl Albumin (3.4-5.0) gm/dl Globulin (2.5-4.0) gm/dl Albumin/Globulin Ratio (0.9-2) Urine Color Yellow Urine Appearance Cloudy A (Clear) Urine pH 8.0 H (4.5-7.5) Ur Specific [place] 1.021 (1.000-1.030) Urine Protein 1+ H (Negative) Urine Glucose (UA) 3+ H (Negative) Urine Ketones 2+ H (Negative) Urine Blood 1+ H (Negative) Urine Nitrite Positive A (Negative) Urine Bilirubin Negative (Negative) Urine Urobilinogen Negative (Negative) Ur Leukocyte Esterase 2+ H (Negative) Urine WBC (Auto) >30 H (0-5) /hpf Urine RBC (Auto) 5-10 H (0-4) /hpf U Hyaline Cast (Auto) 10-30 H (0-5) /lpf U Epithel Cells (Auto) 0-5 (0-5) /lpf Urine Bacteria (Auto) 3+ H (Negative) Imaging Data Radiologist's Impression: Radiology results as stated below per my review and the radiologist's interpretation: US venous doppler LE RT HISTORY: 63 years-old Male erythema, RLE. Immobile @ baseline acute pain and swelling of the right lower cavity COMPARISON: None available TECHNIQUE: Multiple real time sonographic images of the right lower extremity deep venous structures were obtained assessing grayscale appearance, color and spectral flow FINDINGS: Study is limited secondary to lack of patient cooperation and condition. Normal flow, compressibility, phasicity and augmentation of the right lower extremity deep venous structures. IMPRESSION: No sonographic evidence of deep venous thrombosis. The above report was generated using voice recognition software. It may contain grammatical, syntax or spelling errors. Electronically signed by: Howard Roland M.D. 01/05/2019 11:34 AM XR chest 1V portable HISTORY: Cellulitis of leg COMPARISON: Chest 10/10/2018. FINDINGS: There are low lung volumes. The heart remains mildly enlarged. No pleural effusions. No pneumothorax. No new focal lung consolidations to suggest pneumonia. No evidence for pulmonary edema. IMPRESSION: No significant change compared to the prior study. No acute process. Electronically signed by: Rd Ty M.D. 01/05/2019 12:28 PM ECG Data Attestation: I personally reviewed and interpreted this ECG as follows: Indication: altered mental status Rate (beats per minute): 116 Rhythm: sinus tachycardia Findings: + other (normal axis); no ST depression, no ST elevation and no acute ischemic change Blood Pressure Blood Pressure Findings: Normal blood pressure MDM Narrative The patient is a pleasant 63-year-old gentleman with a past mental history of cerebral palsy who is nonambulatory, s/p suprapubic catheter placement, HTN, HLD, DM who presents emergency department after being referred by his home health aide concern for change in mental status with redness and swelling of his right lower extremity per hpi. Resident Dr. Malave, discussed the patient with the patient's home health caregiver who reports that his mental status is worse from his usual and in the past was indicative of having infection. On arrival patient himself is alert and oriented and has no complaints though he is a poor historian. AF with HR 120s and otherwise VSS. The patient appears clinically dry. On exam the patient has 2+ edema and erythema and warmth to the right lower extremity. Distal PMS intact. He does have a suprapubic catheter in place with scant serous discharge surrounding the catheter but abdomen is benign. RLE US negative for DVT. WBC 19.8. H/H similar to prior. Given leukocytosis with source Blood cultures and lactate were ordered and patient was ordered for vanc omycin given likely source of cellulitis. HR improving to 90-100s with IVF hydration. Lactate 2.4 however no acidosis on chemistry. Resident, Dr. Malave, discussed the case with Dr. Ulloa, [facility] hospitalist who will evaluate the patient for admission. This patient was managed with the assistance of resident, Dr. Malave. I discussed the case with the resident, examined the patient, and confirm the findings and plan as documented in this note. Impression & Plan Cellulitis, Dehydration, Leukocytosis Discharge Plan Visit Data *Final* Discharge Date/Time: 01/05/19 15:20 Chief Complaint: Arm Pain Stated Complaint: arm pain ED Provider: Portillo Francis ED Midlevel Provider: Heath Malave Discharge Problem: Cellulitis, Dehydration, Leukocytosis Patient Disposition: Admitted As Inpatient Discharge Instructions Interventions: ED Discharge Assessment Last Done: 01/05/19 15:20 The scribe's documentation has been prepared under my direction and personally reviewed by me in its entirety. I confirm that the note above accurately reflects all work, treatment, procedures, and medical decision making performed by me.
[2019-01-05] MEDS ORDERED: ONDANSETRON INJ 2 MG/ML 2 ML VIAL IV PRN (16:19)
[2019-01-05] MEDS ORDERED: INSULIN ASPART 100 UNITS/ML 3 ML PEN SC SCH (16:30)
[2019-01-05] MEDS ORDERED: GLUCOSE 10 TABS/TUBE PO PRN (17:00)
[2019-01-05] MEDS ORDERED: GLUCOSE 40% GEL 15 GM TUBE PO PRN (17:00)
[2019-01-05] MEDS ORDERED: DEXTROSE 50% 50 ML SYRINGE IV PRN (17:00)
[2019-01-05] MEDS ORDERED: GLUCAGON FOR INJ 1 MG VIAL IM PRN (17:00)
[2019-01-05] MEDS ORDERED: CARBOHYDRATES FOR HYPOGLYCEMIA PO PRN (17:00)
[2019-01-05 17:23] LABS: INR 1.2 (0.9-1.1); Prothrombin Time 12.4 Seconds (9.0-12.0)
[2019-01-05] MEDS: CEFEPIME 1,000 MG in SYRINGE 0 ML IV SCH (18:12)
[2019-01-05] MEDS: SODIUM CHLORIDE 0.9% 1000ML 1,000 ML IV SCH (18:17)
[2019-01-05] MEDS: ENOXAPARIN INJ 40 MG/0.4 ML SYR SQ SCH (19:42)
--- NOTE | 2019-01-05 20:16 | Pharmacy Report ---
Pharmacy Abx Initial Consult - Date of Service January 05, 2019 - Pharmacy Dosing Scope Date of Consult: 01/05/19 Consultation requested by: Dr. Ulloa Pharmacy is consulted to initiate VANCOMYCIN IV/PO dosing therapy, order appropriate labs and adjust drug dose/frequency. - Subjective The patient is a 63 year old M admitted on 01/05/19 13:51. - Objective Height: 5 ft 6 in Weight: 78.5 kg Vital Signs (Past 12hrs): Vital Signs Temp Pulse Pulse Resp BP BP Pulse Ox 01/05/19 15:45 37.3 C 114 H 14 141/72 H 95 01/05/19 14:58 106 H 22 111/56 L 95 01/05/19 13:44 73 20 160/78 H 99 01/05/19 12:19 103 H 20 116/75 98 01/05/19 10:42 105 H 20 120/72 97 01/05/19 09:34 36.4 C L 120 H 18 135/84 98 Lab Results (24hrs): Laboratory Tests (24 Hours) 01/05/19 01/05/19 10:41 10:41 WBC 19.87 H Neut # (Auto) 18.97 H Creatinine 1.09 Est Cr Clr Drug Dosing Not Reportable Micro Results: 01/05/19 11:48 Aerobic Blood Culture - Pending Blood Anaerobic Blood Culture - Pending 01/05/19 11:59 Aerobic Blood Culture - Pending Blood Anaerobic Blood Culture - Pending - Assessment & Plan Assessment 63 year old M ordered VANCOMYCIN and CEFEPIME for cellulitis. Plan Vancomycin IV * Estimated PK Parameters: Vd 0.7 L/kg, Cosme 0.059 hr-1, t1/2 11.7hr * Loading dose: 2000mg (25 mg/kg) * Maintenance dose: 1250 mg IV (16 mg/kg) every 14 hours * Goal trough level for cellulitis : 15 to 20 mcg/mL * Trough level ordered for 01/07/19 @ 0600 Pharmacy will continue to follow and will adjust dose/frequency as necessary. Thank you.
[2019-01-05] MEDS: INSULIN ASPART 100 UNITS/ML 3 ML PEN SC SCH (21:06)
[2019-01-06] MEDS: INSULIN ASPART 100 UNITS/ML 3 ML PEN SC SCH ×5 (00:08→20:14)
[2019-01-06] MEDS: CEFEPIME 1,000 MG in SYRINGE 0 ML IV SCH ×2 (00:09→08:07)
[2019-01-06] MEDS: SODIUM CHLORIDE 0.9% 1000ML 1,000 ML IV SCH ×3 (00:11→17:10)
[2019-01-06] MEDS ORDERED: VANCOMYCIN HCL 1,250 MG in SODIUM CHLORIDE 0.9% 250 ML IV SCH (02:00)
[2019-01-06 07:37] LABS: Basophils # (auto) 0.01 K/uL (0-0.2); Basophils % (auto) 0.1 %; Eosinophils # (auto) 0.01 K/uL (0-0.5); Eosinophils % (auto) 0.1 %; Hematocrit (blood only) 29.3 % (42-52); Hemoglobin 10.3 g/dL (14.0-18.0); Immature Granulocytes # (auto) 0.02 K/uL (0.00-0.02); Immature Granulocytes % (auto) 0.2 %; Mean Corpuscular Hgb Conc 35.2 g/dL (32-36); Mean Corpuscular Volume 96.4 fL (80-100); Mean Platelet Volume 8.2 fL (7.4-10.4); Monocytes # (auto) 0.49 K/uL (0.11-0.59); Monocytes % (auto) 5.7 %; Neutrophils # (auto) 7.44 K/uL (1.4-6.5); Neutrophils % (auto) 86.9 %; Platelet Count 140 K/uL (130-400); RDW Coefficient of Variation 14.1 % (11.5-14.5); RDW Standard Deviation 49.3 fL (36.4-46.3); Red Blood Count 3.04 M/uL (4.7-6.1); White Blood Count 8.57 K/uL (4.8-10.8)
[2019-01-06 08:05] LABS: BUN Creatinine Ratio 14.9 (10-20); Calcium 8.8 mg/dl (8.5-10.1); Creatinine Clr Calc Pharmacy 84.8 ml/min; Est GFR (African American) 105.5
[2019-01-06] MEDS: VANCOMYCIN HCL 1,250 MG in SODIUM CHLORIDE 0.9% 250 ML IV SCH ×2 (13:17→21:29)
[2019-01-06] MEDS ORDERED: PIPERACILL/TAZOBAC CONSULT ACTIVE PRN (14:08)
[2019-01-06] MEDS ORDERED: PIPERACILLIN/TAZOBACTAM 3.375 GM in DEXTROSE 5% 100 ML IV ONE (14:15)
[2019-01-06] MEDS ORDERED: CEFEPIME CONSULT ACTIVE PRN (15:49)
[2019-01-06] MEDS ORDERED: Nursing to Pharmacy Communication ONE (15:56)
[2019-01-06] MEDS: ENOXAPARIN INJ 40 MG/0.4 ML SYR SQ SCH (17:10)
--- NOTE | 2019-01-06 18:06 | Hospitalist Progress Note ---
Date of Service January 06, 2019 Assessment & Plan (1) Sepsis: Documented by tachycardia, leukocytosis, altered mental status, elevated lactic acid. -This appears to be due to his right lower extremity cellulitis. UTI is more questionable, given his chronic indwelling Hernandez and another nidus of infection, but given the overall situation it would be very difficult to tease apart whether or not the urine was truly a pathogen or just a contaminant (see below), and therefore have to treat for both. (2) Cellulitis of right lower leg: Continue vancomycin and cefepime. Improving. (3) UTI (urinary tract infection) due to urinary indwelling catheter: Improving, continue cefepime. Doubt Vanco is playing much of a role here. His last urine culture showed Proteus that was sensitive to cefepime, prior to that months ago he did have a Pseudomonas that was intermediate to cefepime. It is possible that may be it could be much more likely that the urine is just a contaminant if the cultures show resistance or even intermediate to cefepime, especially given how quickly he got better (4) Metabolic encephalopathy: Improved dramatically, sister notes other than appearing tired he is back to his baseline. (5) Spina bifida: Supportive care (6) Cerebral palsy: Supportive care (7) Diabetes: Continue supplemental insulin coverage. (8) DNR (do not resuscitate): Per family request (9) DVT prophylaxis: Lovenox (10) Discharge planning issues: Anticipate home tomorrow on oral antibiotics, but obviously need to await final culture results first. Subjective Feeling better. HPI somewhat limited due to mental status, but sister arrives over talking, notes that he is almost back to his baseline. Notes that he just looks a little more tired than usual. No other significant HPI review of systems obtainable, but all appears to be negative. Review of Systems Review of Systems: All systems reviewed & are unremarkable except as noted in HPI & below Limited due to cognitive status, but otherwise negative Physical Exam Physical Exam: In general he is awake and alert, smiling, interactive. No distress. HEENT normal cephalic atraumatic mucous members moist. Breathing is unlabored no accessory muscle use good effort. Neuro shows cranial nerves II through XII be grossly intact with the exception of a degree of strabismus. This appears to be chronic. His right lower extremity has warm and may be somewhat tender erythema from about 3 cm distal to the knee down to about the ankle. There is no open lesions, no crepitus. Its somewhat dull redness. Results & Data Vital Signs (Past 12 Hours) Vital Signs Temp Pulse Pulse Resp BP Pulse Ox 01/06/19 15:26 106 H 01/06/19 15:23 36.8 C 100 H 18 149/91 H 98 01/06/19 11:11 36.9 C 111 H 20 134/76 99 01/06/19 07:09 37.1 C 103 H 20 129/75 97 PG Care Time/CCT Total # of Minutes Spent Total Time Spent with Patient: Total time spent is greater than 50% in coordination of care (as documented) at patient's floor/unit and/or counseling patient: (1) Sepsis Sepsis type: sepsis due to unspecified organism Qualified Code(s): A41.9 - Sepsis, unspecified organism (2) Diabetes Diabetes mellitus type: type 2 Diabetes mellitus terminal operations manager insulin use: without terminal operations manager use Diabetes mellitus complication status: with neurologic complications Diabetes mellitus complication detail: with unspecified neuropathy Qualified Code(s): E11.40 - Type 2 diabetes mellitus with diabetic neuropathy, unspecified
[2019-01-06] MEDS ORDERED: CEFEPIME 1,000 MG in SYRINGE 0 ML IV SCH (19:00)
[2019-01-06] MEDS ORDERED: PIPERACILLIN/TAZOBACTAM 3.375 GM in DEXTROSE 5% 100 ML IV SCH (20:00)
[2019-01-06] MEDS: CEFEPIME 2,000 MG in SYRINGE 7.5 ML IV SCH (20:14)
[2019-01-07] MEDS: SODIUM CHLORIDE 0.9% 1000ML 1,000 ML IV SCH ×3 (01:06→17:50)
[2019-01-07] MEDS ORDERED: VANCOMYCIN TROUGH ONE ×2 (05:30→07:30)
[2019-01-07 07:26] LABS: Basophils # (auto) 0.01 K/uL (0-0.2); Basophils % (auto) 0.2 %; Eosinophils # (auto) 0.11 K/uL (0-0.5); Eosinophils % (auto) 1.9 %; Hematocrit (blood only) 26.9 % (42-52); Hemoglobin 9.6 g/dL (14.0-18.0); Immature Granulocytes # (auto) 0.02 K/uL (0.00-0.02); Immature Granulocytes % (auto) 0.3 %; Lymphocytes # (auto) 0.63 K/uL (1.2-3.4); Lymphocytes % (auto) 10.6 %; Mean Corpuscular Hgb Conc 35.7 g/dL (32-36); Mean Corpuscular Volume 95.1 fL (80-100); Mean Platelet Volume 8.1 fL (7.4-10.4); Monocytes # (auto) 0.45 K/uL (0.11-0.59); Monocytes % (auto) 7.6 %; Neutrophils # (auto) 4.71 K/uL (1.4-6.5); Neutrophils % (auto) 79.4 %; Platelet Count 124 K/uL (130-400); RDW Coefficient of Variation 13.7 % (11.5-14.5); Red Blood Count 2.83 M/uL (4.7-6.1); White Blood Count 5.93 K/uL (4.8-10.8)
[2019-01-07] MEDS: CEFEPIME 2,000 MG in SYRINGE 7.5 ML IV SCH ×2 (07:38→20:37)
[2019-01-07] MEDS: VANCOMYCIN HCL 1,250 MG in SODIUM CHLORIDE 0.9% 250 ML IV SCH ×2 (07:56→17:51)
[2019-01-07] MEDS: INSULIN ASPART 100 UNITS/ML 3 ML PEN SC SCH ×4 (07:57→20:37)
[2019-01-07 08:01] LABS: BUN Creatinine Ratio 13.3 (10-20); Calcium 8.6 mg/dl (8.5-10.1); Creatinine Clr Calc Pharmacy 102.7 ml/min; Est GFR (African American) 114.1; Est GFR (Non-African American) 98.5; Potassium 2.8 mmol/L (3.5-5.1)
--- NOTE | 2019-01-07 09:27 | Family Medicine Progress Note ---
Date of Service January 07, 2019 Assessment & Plan (1) Cellulitis of right lower le63 year old man with spina bifida and cerebral palsy who has aids eight hours per day but lives independently presented for altered mental status Septic Encephalopathy Either secondary to RLL cellulitis, UTI from indwelling suprapubic cath or both Currently improved back to baseline mentation Will continue vanc and cefepime for now pending culture results and sensitivities. Blood cultures NGTD Urine culture gram negative bacilli Pending urine culture results will transition to oral antibiotics UTI History of pseudomonas with intermediate cefepime coverage two admissions ago Hesitant to change to zosyn as patient is clinically improved and do not want to increase patient's risk for C. Diff Awaiting culture sensitivities Cellulitis Appears to be improving Continuing abx ADL's Ordered PT and OT, Patient with aids in house eight hours a day but lives independently Sister concerned that he is a bit too fatigued to go home today as he needs strength and energy to maket he transfers he needs to at home. F/E/N: Full diet DVT PPx: Lovenox Dispo: Med Surg (2) Sepsis: (3) Acute UTI (urinary tract infection): (4) Spina bifida: (5) Cerebral palsy: (6) Metabolic encephalopathy: Supervising Physician Co-Signing Physician Notes Resident Physician Supervision Note: I independently interviewed and examined the patient and verified the ahmadi history and physical, reviewed labs and image studies, discussed the case with the resident Dr. Eckert and agree with the findings and care plan. Subjective Continues to do well today tells me he feels in his usual state of health, not endorsing any pain fevers chills, no chest pain shortness of breath wheezing coughing, nausea vomiting diarrhea or constipation. Physical Exam Constitutional: + obese, cooperative and comfortable; no acute distress Eyes: PERRL, conjunctivae normal, anicteric sclerae Respiratory: normal respiratory effort, lungs clear to auscultation Cardiovascular: Rate/Rhythm: regular rate and regular rhythm Heart Sounds: normal S1 and normal S2; no click, no gallop, no murmur and no cardiac rub Extremities: no calf tenderness Gastrointestinal (Abdomen): normal bowel sounds, soft, nontender, no hepatosplenomegaly Suprapubic catheter in place Skin: Erythematous rash of right lower extremity. Results & Data Vital Signs (Past 12 Hours) Vital Signs Temp Pulse Pulse Resp BP Pulse Ox 01/07/19 07:17 36.7 C 89 18 110/54 L 99 01/07/19 04:00 36.6 C 76 20 102/61 95 01/06/19 23:45 92 H 01/06/19 22:40 36.8 C 95 H 20 149/85 H 98 PG Care Time/CCT Total # of Minutes Spent Total Time Spent with Patient: Total time spent is greater than 50% in coordination of care (as documented) at patient's floor/unit and/or counseling patient: Resident Activity Tracking Resident Involvement: Resident Care Provided Care Provided: Adult Hospital Medicine (1) Sepsis Sepsis type: sepsis due to unspecified organism Qualified Code(s): A41.9 - Sepsis, unspecified organism
--- NOTE | 2019-01-07 16:00 | Pharmacy Report ---
Pharmacy Abx Dose Short Note - Date of Service January 07, 2019 - Assessment & Plan Assessment 63 year old M receiving vancomycin/ cefepime for treatment of cellulitis/uti Day # 3 of antimicrobial therapy. plan to discharge/ switch to oral medications once urine culture results Plan Vancomycin * Trough level of 13.6 mcg/mL is therapeutic for cellulitis and patient likely to switch to orals, therefore will continue current dose * Continue dose of 1250 mg IV every 10 hours * Goal trough level for cellulitis 10-20 mcg/mL * no trough ordered Pharmacy will continue to follow and will adjust dose/frequency as necessary. Thank you.
[2019-01-07] MEDS: ENOXAPARIN INJ 40 MG/0.4 ML SYR SQ SCH (17:48)
[2019-01-07] MEDS: POTASSIUM CHLORIDE PWD 20 MEQ PACK PO SCH (20:37)
[2019-01-08] MEDS: SODIUM CHLORIDE 0.9% 1000ML 1,000 ML IV SCH ×2 (01:28→12:41)
[2019-01-08] MEDS: VANCOMYCIN HCL 1,250 MG in SODIUM CHLORIDE 0.9% 250 ML IV SCH (03:47)
[2019-01-08 07:56] LABS: Basophils # (auto) 0.01 K/uL (0-0.2); Basophils % (auto) 0.2 %; Eosinophils # (auto) 0.16 K/uL (0-0.5); Eosinophils % (auto) 3.4 %; Hematocrit (blood only) 24.6 % (42-52); Hemoglobin 8.7 g/dL (14.0-18.0); Immature Granulocytes # (auto) 0.03 K/uL (0.00-0.02); Immature Granulocytes % (auto) 0.6 %; Lymphocytes # (auto) 0.71 K/uL (1.2-3.4); Mean Corpuscular Hgb Conc 35.4 g/dL (32-36); Mean Corpuscular Volume 94.3 fL (80-100); Mean Platelet Volume 8.6 fL (7.4-10.4); Monocytes # (auto) 0.41 K/uL (0.11-0.59); Monocytes % (auto) 8.6 %; Neutrophils # (auto) 3.42 K/uL (1.4-6.5); Neutrophils % (auto) 72.2 %; Platelet Count 147 K/uL (130-400); RDW Coefficient of Variation 13.5 % (11.5-14.5); Red Blood Count 2.61 M/uL (4.7-6.1); White Blood Count 4.74 K/uL (4.8-10.8)
[2019-01-08 08:20] LABS: Calcium 8.4 mg/dl (8.5-10.1); Creatinine Clr Calc Pharmacy 130.3 ml/min; Est GFR (African American) 124.9; Est GFR (Non-African American) 107.8; Potassium 2.9 mmol/L (3.5-5.1)
[2019-01-08] MEDS: POTASSIUM CHLORIDE PWD 20 MEQ PACK PO SCH ×2 (08:22→13:24)
[2019-01-08] MEDS: INSULIN ASPART 100 UNITS/ML 3 ML PEN SC SCH ×2 (08:23→12:41)
[2019-01-08] MEDS: CEFEPIME 2,000 MG in SYRINGE 7.5 ML IV SCH (08:23)
--- NOTE | 2019-01-08 20:14 | Discharge Summary ---
Date of Service January 08, 2019 Admission HPI Per Admitting Provider 63-year-old male with cerebral palsy and spina bifida. His director of strategic initiatives noticed a significant change in his mental status. He also has redness about the right lower extremity below the knee. He was sent to the ED for evaluation. He appears to be septic with leukocytosis, tachycardia, altered mental status. Lactic acid 2.4. He has a suprapubic catheter and urine analysis reveals 3+ bacteria. There is evidence of right lower extremity cellulitis. Venous Doppler of the right lower extremity is negative for DVT. He will be given vancomycin and cefepime. Blood and urine cultures have been ordered. He will be kept n.p.o. until his mental status improves . The family has requested a DNR status Admission Exam Per Admitting Provider General-semiconscious state. Nonverbal. He does withdraw all 4 extremities to noxious stimuli HEENT-head atraumatic and normocephalic, TMs intact bilaterally, pupils equal and reactive to light, extraocular muscles intact Neck-no lymphadenopathy or thyromegaly, trachea midline Chest-clear to auscultation percussion. No rales wheezing or rhonchi Cardiac-tachycardic regular rate, normal S1 and S2, no JVD Abdomen-normal bowel sounds, nontender, no hepatosplenomegaly Extremities-no cyanosis, clubbing, or edema. Right lower extremity erythema below the knee involving the foot Neuro-baseline cerebral palsy Psych-cannot assess Principal Diagnosis cellulitis RLL and UTI Discharge Exam Constitutional + obese, cooperative and comfortable; no acute distress Eyes PERRL, conjunctivae normal, anicteric sclerae Respiratory normal respiratory effort, lungs clear to auscultation Cardiovascular Rate/Rhythm: regular rate and regular rhythm Heart Sounds: normal S1 and normal S2; no click, no gallop, no murmur and no cardiac rub Extremities: no calf tenderness Gastrointestinal (Abdomen) normal bowel sounds, soft, nontender, no hepatosplenomegaly Discharge Data Allergies Allergy/AdvReac Type Severity Reaction Status Date / Time No Known Allergies Allergy Verified 11/10/18 10:07 Consultations 01/05/19 11:39 ED Decision to Admit Stat Ordered Studies 01/05/19 10:50 US venous doppler LE RT Stat Hospital Course (1) Cellulitis of right lower le63 year old man with spina bifida and cerebral palsy who has aids eight hours per day but lives independently presented for altered mental status secondary to infection Septic Encephalopathy Multifactorial - secondary to RLL cellulitis, UTI from indwelling suprapubic cath or both Currently improved back to baseline mentation Initially on vanc and cefepime for now pending culture results and sensitivities. 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 PT and OT sign off today Hypokalemia Potassium 2.9 today Continue home potassiuim supplementation and Bactrim may also raise potassium Recheck BMP early next week preferably Friday (2) Sepsis: (3) Acute UTI (urinary tract infection): (4) Spina bifida: (5) Cerebral palsy: (6) Metabolic encephalopathy: Total Time Total Time Spent Total Time Spent (In Minutes): 45 Total Time Includes: Examination of the Patient, Discharge Planning, Medication Reconciliation, Communication With Other Providers and Other Discharge Plan Discharge Items Patient Disposition: Home - Home Health Services Reason For Visit: CELLULITIS,METABOLIC ENCEPHALOPATHY Discharge Diagnosis: Cellulitis Discharge Goals: Improve disease control and Therapeutic intervention Activity: Resume your previous activity Non-emergency contact: Primary Care Provider Call non-emergency contact if: you have any medication questions Follow-up/Referrals: Gaudencio Chowdhury MD [Primary Care Provider] - Diet: Carb Consistent or DM2 Addtl Provider Instructions: Mr. Humphreys, it was our pleasure to evaluate and treat you here at [facility] for your lower limb skin infection and your urinary tract infection. We treated you with IV broad spectrum antibiotics and watched you for two days. You have improved markedly and now appear to be back to your usual state of health. We will be discharging you on Bactrim an antibiotic which should cover both infections. This medication is to be taken 2 times per day for ten days to fully clear your infections. You will also need to follow up with your primary care physician in the next week to make sure you're continuing to improve and also to get blood work done to check your potassium level. If you have worsening fevers, chills, leg redness or other symptoms concerning for you please return to medical care without delay. Prescriptions: New sulfamethoxazole-trimethoprim 800-160 mg Tablet 1 tab PO Q12 10 Days Qty: 20 RF: 0 Continued miconazole nitrate 2 % cream 1 appln TOP BID Qty: 30 RF: 1 diaper,brief,adult,disposable misc .ROUTE .MEDSUPPLY Qty: 32 RF: 0 blood-glucose meter [[employer] Verio System] misc .ROUTE .MEDSUPPLY Qty: 1 RF: 0 cholecalciferol (vitamin D3) 1,000 unit tablet 3,000 units PO DAILY RF: 0 tramadol 50 mg tablet 50 mg PO BID Qty: 60 RF: 0 acetic acid 0.25 % solution 1 irrig irrigation DIRECTED Qty: 500 RF: 5 [employer] Ultra Blue Test Strip strip .ROUTE .MEDSUPPLY Qty: 100 RF: 5 furosemide 40 mg Tablet 40 mg PO DAILY RF: 0 acetaminophen [Tylenol] 325 mg Tablet 650 mg PO Q4H PRN (Reason: Pain) RF: 0 aspirin [Aspirin Low Dose] 81 mg Tablet,Delayed Release (Dr/Ec) 81 mg PO DAILY RF: 0 ascorbic acid (vitamin C) [Vitamin C] 500 mg Tablet 500 mg PO DAILY RF: 0 gemfibrozil 600 mg Tablet 600 mg PO BID RF: 0 metformin 1,000 mg Tablet 1,000 mg PO BID RF: 0 propranolol 80 mg Capsule,Extended Release 24 Hr 80 mg PO DAILY RF: 0 niacin [Niacor] 500 mg Tablet 2,500 mg PO HS RF: 0 polyethylene glycol 3350 [Miralax] 17 gram/dose Powder 17 g PO DAILY PRN (Reason: Constipation) RF: 0 lisinopril 2.5 mg Tablet 2.5 mg PO DAILY RF: 0 finasteride 5 mg Tablet 5 mg PO DAILY RF: 0 magnesium oxide 400 mg (241.3 mg magnesium) tablet 400 mg PO .COMPLEX RF: 0 potassium chloride 20 mEq tablet extended release 20 meq PO BID RF: 0 sennosides-docusate sodium [Senna Laxative-Stool Softener] 8.6-50 mg Tablet 1 tab PO BID RF: 0 Stand-Alone Forms: My [facility] Discharge Orders: Discharge Order (Routine); Ordered 01/08/19 Ordered By: Art Eckert Admission Data Admit Date/Time: 01/05/19 13:51 Attending Provider: Lisbeth Kaur Admit Provider: Surendra Ulloa Primary Care Provider: Gaudencio Chowdhury Other Providers: Surendra Ulloa ; Yosef Tejeda Service: Telemetry Medical Other Interventions: Discharge Summary Assessment (RN) Last Done: 01/08/19 14:12 DC Date/Time DO NOT enter until pt leaves facility: 01/08/19 15:45 Supervising Physician Co-Signing Physician Notes Resident Physician Supervision Note: I independently interviewed and examined the patient and verified the ahmadi history and physical, reviewed labs and image studies, discussed the case with the resident Dr. Eckert and agree with the findings and care plan. Time spent in discharge 35 min Resident Activity Tracking Resident Involvement: Resident Care Provided Care Provided: Adult Hospital Medicine
[2019-01-08] MEDS ORDERED: SULFAMETHOXAZOLE/TRIMETHOPRIM DS 800/160MG TAB PO SCH (21:00)
== END 2019-01-08 15:45 | disposition home health service (06) | DRG 871 ==
LOC: ED 08:59 → SUATTDRO 13:51 → 2W 13:51

== ENCOUNTER 2019-04-05 11:07 | Inpatient (IN) ==
[2019-04-05] MEDS ORDERED: cefTRIAXone SODIUM 1,000 MG/50 ML BAG IV STA (11:42)
[2019-04-05] MEDS ORDERED: SODIUM CHLORIDE 0.9% 1000ML 1,000 ML IV SCH (11:45)
[2019-04-05 12:17] LABS: Basophils # (auto) 0.01 K/uL (0-0.2); Basophils % (auto) 0.1 %; Hematocrit (blood only) 33.9 % (42-52); Hemoglobin 11.8 g/dL (14.0-18.0); Immature Granulocytes # (auto) 0.03 K/uL (0.00-0.02); Immature Granulocytes % (auto) 0.2 %; Lymphocytes # (auto) 0.31 K/uL (1.2-3.4); Lymphocytes % (auto) 2.4 %; Mean Corpuscular Hemoglobin 34.4 pg (25-34); Mean Corpuscular Hgb Conc 34.8 g/dL (32-36); Mean Corpuscular Volume 98.8 fL (80-100); Mean Platelet Volume 8.6 fL (7.4-10.4); Monocytes # (auto) 0.42 K/uL (0.11-0.59); Monocytes % (auto) 3.2 %; Neutrophils # (auto) 12.18 K/uL (1.4-6.5); Neutrophils % (auto) 94.1 %; Platelet Count 204 K/uL (130-400); RDW Coefficient of Variation 13.7 % (11.5-14.5); RDW Standard Deviation 49.1 fL (36.4-46.3); Red Blood Count 3.43 M/uL (4.7-6.1); White Blood Count 12.95 K/uL (4.8-10.8)
[2019-04-05 12:33] LABS: Albumin Level 3.9 gm/dl (3.4-5.0); BUN Creatinine Ratio 17.4 (10-20); Calcium 9.5 mg/dl (8.5-10.1); Creatinine Clr Calc Pharmacy 59.9 ml/min; Est GFR (Non-African American) 66.4; Potassium 3.4 mmol/L (3.5-5.1)
[2019-04-05 12:35] LABS: Albumin Globulin Ratio 0.9 (0.9-2); Bilirubin,Total 0.9 mg/dl (0.2-1); Globulin 4.3 gm/dl (2.5-4.0); Total Protein 8.2 gm/dl (6.4-8.2)
--- NOTE | 2019-04-05 13:25 | Ultrasound Report ---
RIGHT LOWER EXTREMITY VENOUS DOPPLER HISTORY: Right leg swelling and pain. COMPARISON STUDY: Right lower extremity venous Doppler 01/05/2019. FINDINGS: There is normal compressibility, flow, and augmentation within the right lower extremity de ep venous system. There is a 4.1 x 2.9 x 0.9 cm right inguinal lymph node. This demonstrates a thin c ortex and normal fatty hilum. Therefore, this demonstrates benign characteristics at this time. IMPRESSION: No DVT within the right lower extremity Electronically signed by: Rd Ty M.D. 04/05/2019 1:23 PM
--- NOTE | 2019-04-05 14:21 | History & Physical Report ---
Date of Service April 05, 2019 Assessment & Plan (1) Cellulitis of right lower leg: Patient started on IV Rocephin and vancomycin. Consider infectious disease consultation if not improving. Check blood cultures. (2) Cellulitis: (3) Hyponatremia: Monitor labs. (4) Spina bifida: supportive care (5) Cerebral palsy: Continue with supportive care (6) Hypertension: Continue home medication. (7) Hyperlipidemia: Home medication to continue (8) Diabetes: Sliding-scale insulin per protocol. (9) Altered mental status: Rule out toxic metabolic encephalopathy. (10) DVT prophylaxis: Subcu heparin (11) DNR (do not resuscitate): DNR (12) Hypokalemia: Add potassium supplements. Repeat labs in a.m. Present on Admission?: Yes History of Present Illness Chief Complaint: Right leg swelling and redness since yesterday Primary Care Provider: Mitchel Chowdhury MD The patient is 63-year-old male with history of spina bifid and cerebral palsy. He presented to the ER today with complaints of right leg swelling and redness getting worse since yesterday. He has history of cellulitis of the lower extremities in the past. The further work-up done in the ER showed that patient has right lower extremity cellulitis. He was started on IV Rocephin and vancomycin and will be admitted for further evaluation and management. According to his brother who is present at the bedside, the patient is more lethargic today and has decreased mental status. Patient denies any fever. No purulent drainage from the leg. Patient is wheelchair-bound. Allergies Allergy/AdvReac Type Severity Reaction Status Date / Time No Known Allergies Allergy Verified 04/05/19 14:03 Home Medications Home Medications Medication Instructions Recorded Confirmed Type ascorbic acid (vitamin C) [Vitamin 500 mg PO DAILY 04/28/18 04/03/19 History C] aspirin [Aspirin Low Dose] 81 mg PO DAILY 04/28/18 04/03/19 History furosemide 40 mg PO DAILY 04/28/18 04/03/19 History metformin 1,000 mg PO BID 04/28/18 04/03/19 History polyethylene glycol 3350 [Miralax] 17 g PO DAILY PRN 04/28/18 04/03/19 History blood-glucose meter #1 ea 11/05/18 04/03/19 History cholecalciferol (vitamin D3) 1,000 3,000 units PO DAILY tab 11/05/18 04/03/19 History unit (25 mcg) tablet diaper,brief,adult,disposable #32 ea 11/05/18 04/03/19 History magnesium oxide 400 mg (241.3 mg 400 mg PO QAM 11/05/18 04/03/19 History magnesium) tablet potassium chloride ER 20 mEq 20 meq PO BID tab 11/05/18 04/03/19 History tablet,extended release blood sugar diagnostic strips #100 ea 11/10/18 04/03/19 Rx nystatin 100,000 unit/gram topical 1 appln TOP BID #30 gm 01/26/19 04/03/19 Rx powder propranolol ER 80 mg capsule,24 80 mg PO DAILY #30 cap 02/15/19 04/03/19 Rx hr,extended release gemfibrozil 600 mg tablet 600 mg PO BID #60 tab 02/16/19 04/03/19 Rx lisinopril 2.5 mg tablet 2.5 mg PO DAILY #90 tab 02/26/19 04/03/19 Rx niacin 500 mg tablet 2,500 mg PO HS #150 tab 02/26/19 04/03/19 Rx miconazole nitrate 2 % topical 1 appln TOP BID #30 gm 03/25/19 04/03/19 Rx cream finasteride 5 mg tablet 5 mg PO DAILY #30 tab 03/29/19 04/03/19 Rx Wheelchair (Manual) #1 ea 04/01/19 04/03/19 Rx tramadol 50 mg tablet 50 mg PO BID #60 tab 04/02/19 04/03/19 Rx sennosides-docusate sodium [Senna 1 tab PO BID 04/03/19 04/03/19 History with Docusate Sodium] Past Med/Surg History Medical History Metabolic encephalopathy (Acute) UTI (urinary tract infection) due to urinary indwelling catheter (Acute) Cellulitis of right lower leg (Acute) HTN (hypertension) (Chronic) Cerebral palsy (Chronic) Diabetes (Chronic) Heart disease (Chronic) Spina bifida (Chronic) Pneumonia (Suspected) Family History Other Cancer Diabetes Heart disease Hypertension Social History Preferred Language: Spanish Communication Ability: Effective 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 Beliefs That Will Affect Care: None marital status: Single Current Living Situation: Alone Current Living Situation Comment: has cargivers from [id number] and [id number] Feels Safe at Home: Yes Smoking Status: Former smoker Second Hand Exposure: No ; Hx Alcohol Use: No Hx Substance Use: No Review of Systems Review of Systems: All systems reviewed & are unremarkable except as noted in HPI & below Physical Exam Physical Exam: GENERAL : No acute distress EYES: No icterus, gaze conjugate NOSE: No evidence of epistaxis MOUTH: No lesions or candidiasis, mucosa moist NECK: Supple LUNGS: CTA B/L, no wheezes, rales or rhonchi HEART: Regular, rate controlled ABDOMEN: Soft, NT, ND, BS Present Suprapubic catheter noted. EXTREMITIES: Right leg cellulitis noted. NEURO: A&OX3 Results & Data Vital Signs (Past 12 Hours) Vital Signs Temp Pulse Pulse Resp BP BP Pulse Ox 04/05/19 13:28 108 H 14 157/88 H 04/05/19 12:42 105 H 16 131/76 97 04/05/19 11:54 95 04/05/19 11:17 98.2 F 109 H 16 112/67 95 Laboratory Results 04/05/19 12:04 04/05/19 12:04 Diagnostic Findings RIGHT LOWER EXTREMITY VENOUS DOPPLER HISTORY: Right leg swelling and pain. COMPARISON STUDY: Right lower extremity venous Doppler 01/05/2019. FINDINGS: There is normal compressibility, flow, and augmentation within the right lower extremity deep venous system. There is a 4.1 x 2.9 x 0.9 cm right inguinal lymph node. This demonstrates a thin cortex and normal fatty hilum. Therefore, this demonstrates benign characteristics at this time. IMPRESSION: No DVT within the right lower extremity Code Status & VTE Plan Code Status DNR VTE Prophylaxis Plan VTE Prophylaxis will be ordered: Yes PG Care Time/CCT Total # of Minutes Spent Total Time Spent with Patient: Total time spent is greater than 50% in coordination of care (as documented) at patient's floor/unit and/or counseling patient: 60 min (1) Cellulitis Site of cellulitis: unspecified site Qualified Code(s): L03.90 - Cellulitis, unspecified (2) Hypertension Hypertension type: essential hypertension Qualified Code(s): I10 - Essential (primary) hypertension (3) Hyperlipidemia Hyperlipidemia type: mixed hyperlipidemia Qualified Code(s): E78.2 - Mixed hyperlipidemia (4) Diabetes Diabetes mellitus type: type 2 Diabetes mellitus fpc insulin use: wit hout terminal operator use Diabetes mellitus complication status: with neurologic complications Diabetes mellitus complication detail: with unspecified neuropathy Qualified Code(s): E11.40 - Type 2 diabetes mellitus with diabetic neuropathy, unspecified
[2019-04-05] MEDS ORDERED: POTASSIUM CHLORIDE 20 MEQ/15 ML UDC PO STA (14:22)
--- NOTE | 2019-04-05 14:57 | Emergency Department Note ---
Entered by Surendra Graham acting as a scribe for Yosef Dahl DO History of Present Illness General Chief complaint: Swelling/Edema to Extremity Source: patient History of Present Illness Provider complaint: Redness Onset (ago): day(s) 1 Location: lower extremity and right Severity: similar to prior episodes Pain Consistency: + constant Maximum Pain Intensity: 0 Associated symptoms: no cough and no fever/chills The patient is a 63 year old male w/ PMHx of DVT, Sepsis, Spina bifida, HTN, HLD, UTI, DM, anemia, and balanitis who presents to the ED w/ CC of constant redness to his right lower extremity, distal to the knee, that started yesterday. The patient states he has had these symptoms before when he was diagnosed with cellulitis. The patient also has some swelling to his lower extremities but notes this is chronic for him and he has not noticed any drastic changes. The patient does not have any pain at this time. Per the patient's brother, the patiently was slightly confused today and was sleeping most of the day which is abnormal for him. The patient denies any fevers, cough, or rhinorrhea. The patient is on blood thinners. Home Medications Home Medications Medication Instructions Recorded Confirmed Type ascorbic acid (vitamin C) [Vitamin 500 mg PO QAM 04/28/18 04/05/19 History C] aspirin [Aspirin Low Dose] 81 mg PO QAM 04/28/18 04/05/19 History furosemide 40 mg PO QAM 04/28/18 04/05/19 History metformin 1,000 mg PO BID 04/28/18 04/05/19 History polyethylene glycol 3350 [Miralax] 17 g PO DAILY PRN 04/28/18 04/05/19 History blood-glucose meter #1 ea 11/05/18 04/05/19 History cholecalciferol (vitamin D3) 1,000 3,000 units PO QAM tab 11/05/18 04/05/19 History unit (25 mcg) tablet diaper,brief,adult,disposable #32 ea 11/05/18 04/05/19 History magnesium oxide 400 mg (241.3 mg 400 mg PO QAM 11/05/18 04/05/19 History magnesium) tablet potassium chloride ER 20 mEq 20 meq PO BID tab 11/05/18 04/05/19 History tablet,extended release blood sugar diagnostic strips #100 ea 11/10/18 04/05/19 Rx nystatin 100,000 unit/gram topical 1 appln TOP BID #30 gm 01/26/19 04/05/19 Rx powder gemfibrozil 600 mg tablet 600 mg PO BID #60 tab 02/16/19 04/05/19 Rx niacin 500 mg tablet 2,500 mg PO HS #150 tab 02/26/19 04/05/19 Rx miconazole nitrate 2 % topical 1 appln TOP BID #30 gm 03/25/19 04/05/19 Rx cream Wheelchair (Manual) #1 ea 04/01/19 04/05/19 Rx tramadol 50 mg tablet 50 mg PO BID #60 tab 04/02/19 04/05/19 Rx sennosides-docusate sodium [Senna 1 tab PO BID 04/03/19 04/05/19 History with Docusate Sodium] finasteride 5 mg PO QAM 04/05/19 04/05/19 History lisinopril 2.5 mg PO QAM 04/05/19 04/05/19 History propranolol 80 mg PO QAM 04/05/19 04/05/19 History Allergies Allergy/AdvReac Type Severity Reaction Status Date / Time No Known Allergies Allergy Verified 04/05/19 14:03 Past Med/Surg History Medical History Metabolic encephalopathy (Acute) UTI (urinary tract infection) due to urinary indwelling catheter (Acute) Cellulitis of right lower leg (Acute) HTN (hypertension) (Chronic) Cerebral palsy (Chronic) Diabetes (Chronic) Heart disease (Chronic) Spina bifida (Chronic) Pneumonia (Suspected) Family History Other Cancer Diabetes Heart disease Hypertension Social History Preferred Language: Syriac Communication Ability: Effective Consumer Educator Required: No Beliefs That Will Affect Care: None marital status: Single Current Living Situation: Alone Current Living Situation Comment: has cargivers from [phone] and [phone] Other Information That Helps Us Care for You: No Feels Safe at Home: Yes Safety Concerns: Feels Safe At This Time Smoking Status: Former smoker Second Hand Exposure: No ; Hx Alcohol Use: No Hx Substance Use: No Review of Systems See HPI for pertinent positives & negatives. and A total of 10 systems reviewed and were otherwise negative Physical Exam Vital Signs Vital Signs - 24 hr 04/05/19 11:17 04/05/19 11:54 04/05/19 12:42 Temperature 36.8 C Temperature Source Oral Sepsis Recent Fever Within 48 Hours No Sepsis New/Unexplained Change in Mental Status No Sepsis Action Taken by Nursing No Action Required Pulse Rate 109 H Pulse Rate [Apical] 105 H Respiratory Rate 16 16 Blood Pressure 112/67 Blood Pressure [Right Arm] 131/76 Blood Pressure Mean 82 Blood Pressure Mean [Right Arm] 94 Pulse Oximetry 95 95 97 Oxygen Delivery Method Room Air Room Air Room Air 04/05/19 13:28 04/05/19 14:27 04/05/19 14:35 Temperature Temperature Source Sepsis Recent Fever Within 48 Hours Sepsis New/Unexplained Change in Mental Status Sepsis Action Taken by Nursing Pulse Rate Pulse Rate [Apical] 108 H 89 110 H Respiratory Rate 14 16 16 Blood Pressure Blood Pressure [Right Arm] 157/88 H 112/58 L 139/71 Blood Pressure Mean Blood Pressure Mean [Right Arm] 111 76 93 Pulse Oximetry 99 Oxygen Delivery Method Room Air GENERAL: Sitting up in bed, alert, well appearing, well nourished, no distress, non-toxic EYE EXAM: normal conjunctiva. OROPHARYNX: no exudate, no erythema, lips, buccal mucosa, and tongue normal and mucous membranes are moist NECK: supple, no nuchal rigidity, no adenopathy, non-tender LUNGS: Clear to auscultation. Normal chest wall mechanics HEART: no murmurs, S1 normal and S2 normal ABDOMEN: abdomen soft, non-tender, normo-active bowel, sounds, no masses, no rebound or guarding. BACK: Back is symmetrical on inspection and there is no deformity, no midline tenderness, no CVA tenderness. SKIN: no bruising UPPER EXTREMITIES: upper extremities are grossly normal. LOWER EXTREMITIES: 1.5x1.5cm ulcer on the right foot by the base of the 5th MTP. Bruising on the right foot just anterior to the medical aspect of the heel. Bruise on the right 4th toe at the base of the nail bed. NEURO EXAM: Groggy and slightly confused cranial nerves II-XII grossly intact, normal speech, no gross weakness of arms, no gross weakness of legs. Course ED COURSE: Vital signs were reviewed and showed tachycardia. The patients medical record was reviewed The above diagnostic studies were performed and reviewed. ED treatments and interventions as stated above. 1138: The patient was evaluated in room B11B. A complete history and physical examination was performed. 1345: I spoke to Dr. Jefferson [facility] Hospitalist about the patient's case. He is going to accept the patient for further evaluation. 1352: Upon reevaluation, the patient is resting in bed. I discussed my findings with the patient and he understands and agrees with the treatment plan. Based on the patients age, coexisting illnesses, exam and lab findings the decision to treat as an inpatient was made. The patient remained stable while under my care. The patient will be evaluated for further management. Consultations Consultation #1: I spoke to Dr. Jefferson [facility] Hospitalist about the patient's case. He is going to accept the patient for further evaluation. Time: 13:45 Administered Medications Discontinued Medications Sodium Chloride (Nss 1000ml) 1,000 mls @ 999 mls/hr IV .Q1H1M SARAH Stop: 04/05/19 12:45 Last Infusion: 04/05/19 13:27 Dose: 0 mls/hr Documented by: [id number] Admin: 04/05/19 12:11 Dose: 999 mls/hr Documented by: [id number] Ceftriaxone Sodium (Rocephin) 1,000 mg in 50 mls @ 100 mls/hr IV NOW STA Stop: 04/05/19 12:11 Last Infusion: 04/05/19 12:40 Dose: 0 mls/hr Documented by: [id number] Admin: 04/05/19 12:11 Dose: 100 mls/hr Documented by: [id number] Medical Decision Making Differential Diagnosis Differential diagnosis includes etiologies such as cellulitis, abscess, MRSA infection, DVT, necrotizing fasciitis, dermatitis, drug eruption, as well as others were entertained. Medical Records Attestation: I reviewed the patient's medical records. Home Medications Current Medication List: was personally reviewed by me Laboratory Data Attestation: I reviewed the patient's lab results. Result diagrams: 04/05/19 12:04 04/05/19 12:04 Lab Results 04/05/19 04/05/19 Range/Units 12:04 12:04 WBC 12.95 H (4.8-10.8) K/uL RBC 3.43 L (4.7-6.1) M/uL Hgb 11.8 L (14.0-18.0) g/dL Hct 33.9 L (42-52) % MCV 98.8 (80-100) fL MCH 34.4 H (25-34) pg MCHC 34.8 (32-36) g/dL RDW Std Deviation 49.1 H (36.4-46.3) fL RDW Coeff of Renée 13.7 (11.5-14.5) % Plt Count 204 (130-400) K/uL MPV 8.6 (7.4-10.4) fL Immature Gran % (Auto) 0.2 % Neut % (Auto) 94.1 % Lymph % (Auto) 2.4 % Blount % (Auto) 3.2 % Eos % (Auto) 0.0 % Baso % (Auto) 0.1 % Immature Gran # (Auto) 0.03 H (0.00-0.02) K/uL Neut # (Auto) 12.18 H (1.4-6.5) K/uL Lymph # (Auto) 0.31 L (1.2-3.4) K/uL Blount # (Auto) 0.42 (0.11-0.59) K/uL Eos # (Auto) 0.00 (0-0.5) K/uL Baso # (Auto) 0.01 (0-0.2) K/uL Sodium 134 L (136-145) mmol/L Potassium 3.4 L (3.5-5.1) mmol/L Chloride 99 (98-107) mmol/L Carbon Dioxide 26 (21-32) mmol/L Anion Gap 9.0 (3-11) BUN 20 H (7-18) mg/dl Creatinine 1.15 (0.6-1.4) mg/dl Est Cr Clr Drug Dosing 59.9 ml/min Est GFR ( Amer) 77.0 Est GFR (Non-Af Amer) 66.4 BUN/Creatinine Ratio 17.4 (10-20) Glucose 217 H (70-99) mg/dl Calcium 9.5 (8.5-10.1) mg/dl Total Bilirubin 0.9 (0.2-1) mg/dl AST 13 L (15-37) U/L ALT 15 (12-78) U/L Alkaline Phosphatase 78 (45-117) U/L Total Protein 8.2 (6.4-8.2) gm/dl Albumin 3.9 (3.4-5.0) gm/dl Globulin 4.3 H (2.5-4.0) gm/dl Albumin/Globulin Ratio 0.9 (0.9-2) Imaging Data Radiologist's Impression: Radiology results as stated below per my review and the radiologist's interpretation: RIGHT LOWER EXTREMITY VENOUS DOPPLER HISTORY: Right leg swelling and pain. COMPARISON STUDY: Right lower extremity venous Doppler 01/05/2019. FINDINGS: There is normal compressibility, flow, and augmentation within the right lower extremity deep venous system. There is a 4.1 x 2.9 x 0.9 cm right inguinal lymph node. This demonstrates a thin cortex and normal fatty hilum. Therefore, this demonstrates benign characteristics at this time. IMPRESSION: No DVT within the right lower extremity Electronically signed by: Rd Ty M.D. 04/05/2019 1:23 PM ECG Data Attestation: I personally reviewed and interpreted this ECG as follows: Indication: tachycardia Rate (beats per minute): 106 Rhythm: sinus tachycardia Findings: + other (Normal axis, Normal QTC); no PVC Blood Pressure Blood Pressure Findings: Elevated blood pressure Blood Pressure Disposition: further management by hospitalist JOHN Narrative Patient is a 63-year-old male who presents the ER for weakness, lethargy/sleeping a lot more than usual. Patient has erythema in the right lower extremity and has an extensive history of cellulitis on altered mental status plan labs were obtained and showed a mild leukocytosis of 12.9 thousand. No significant anemia. BMP with mild hypokalemia. LFTs bilirubin was unremarkable. Duplex of the right lower extremity was negative. Patient was given IV Rocephin. He was updated bedside. He was given IV fluids. Discussed with brother who notes that he has been slightly more confused and sleeping all day. Patient was admitted to the hospital for further work-up of his tachycardia, cellulitis, lethargy and confusion. Impression & Plan Cellulitis, Tachycardia, Acute confusion Discharge Plan Visit Data Chief Complaint: Swelling/Edema to Extremity ED Provider: Yosef Dahl Discharge Problem: Cellulitis, Tachycardia, Acute confusion Patient Disposition: Being Evaluated by Hospitalist Forms Stand Alone Forms: My [facility] Prescriptions Prescriptions: No Action nystatin 100,000 unit/gram powder 1 appln TOP BID Qty: 30 RF: 0 gemfibrozil 600 mg tablet 600 mg PO BID Qty: 60 RF: 3 niacin [Niacor] 500 mg tablet 2,500 mg PO HS Qty: 150 RF: 5 miconazole nitrate 2 % cream 1 appln TOP BID Qty: 30 RF: 1 Wheelchair (Manual) Device .ROUTE .MEDSUPPLY Qty: 1 RF: 0 tramadol 50 mg tablet 50 mg PO BID Qty: 60 RF: 0 diaper,brief,adult,disposable misc .ROUTE .MEDSUPPLY Qty: 32 RF: 0 blood-glucose meter [[employer] Verio System] misc .ROUTE .MEDSUPPLY Qty: 1 RF: 0 cholecalciferol (vitamin D3) 1,000 unit tablet 3,000 units PO QAM RF: 0 [employer] Ultra Blue Test Strip strip .ROUTE .MEDSUPPLY Qty: 100 RF: 5 furosemide 40 mg Tablet 40 mg PO QAM RF: 0 aspirin [Aspirin Low Dose] 81 mg Tablet,Delayed Release (Dr/Ec) 81 mg PO QAM RF: 0 ascorbic acid (vitamin C) [Vitamin C] 500 mg Tablet 500 mg PO QAM RF: 0 metformin 1,000 mg Tablet 1,000 mg PO BID RF: 0 polyethylene glycol 3350 [Miralax] 17 gram/dose Powder 17 g PO DAILY PRN (Reason: Constipation) RF: 0 magnesium oxide 400 mg (241.3 mg magnesium) tablet 400 mg PO QAM RF: 0 potassium chloride 20 mEq tablet extended release 20 meq PO BID RF: 0 sennosides-docusate sodium [Senna with Docusate Sodium] 8.6-50 mg Tablet 1 tab PO BID RF: 0 propranolol 80 mg capsule,extended release 24 hr 80 mg PO QAM RF: 0 lisinopril 2.5 mg tablet 2.5 mg PO QAM RF: 0 finasteride 5 mg tablet 5 mg PO QAM RF: 0 Referrals Referrals: Gaudencio Chowdhury MD [Primary Care Provider] - Discharge Problem: Cellulitis Qualifiers: Site of cellulitis: extremity Site of cellulitis of extremity: lower extremity Laterality: right Qualified Code(s): L03.115 - Cellulitis of right lower limb The scribe's documentation has been prepared under my direction and personally reviewed by me in its entirety. I confirm that the note above accurately reflects all work, treatment, procedures, and medical decision making performed by me.
[2019-04-05] MEDS ORDERED: INFLUENZA VACCINE HIGH DOSE 65+ 0.5 ML SYR IM ONE (16:30)
[2019-04-05] MEDS ORDERED: INFLUENZA ADMINISTRATION CHARGE ONE (16:30)
[2019-04-05] MEDS ORDERED: POLYETHYLENE (MIRALAX) 17 GM PACK PO PRN ×2 (16:32)
[2019-04-05] MEDS ORDERED: ONDANSETRON INJ 2 MG/ML 2 ML VIAL IV PRN (16:32)
[2019-04-05] MEDS ORDERED: ACETAMINOPHEN 325 MG TAB PO PRN (16:32)
[2019-04-05] MEDS ORDERED: VANCOMYCIN CONSULT ACTIVE PRN (16:32)
[2019-04-05] MEDS ORDERED: ZOLPIDEM TARTRATE 5 MG TAB PO PRN (16:32)
[2019-04-05] MEDS ORDERED: MAGNESIUM HYDROXIDE SUSP 30 ML UDC PO PRN (16:32)
[2019-04-05] MEDS ORDERED: ALUMINUM/MAGNESIUM SUSP 30 ML UDC PO PRN (16:32)
[2019-04-05] MEDS ORDERED: VANCOMYCIN HCL 1,750 MG in SODIUM CHLORIDE 0.9% 500 ML IV ONE (17:15)
[2019-04-05] MEDS: INSULIN ASPART 100 UNITS/ML 3 ML PEN SC SCH ×2 (18:49→21:36)
--- NOTE | 2019-04-05 19:37 | Pharmacy Report ---
Pharmacy Abx Initial Consult - Date of Service April 05, 2019 - Pharmacy Dosing Scope Date of Consult: 04/05/19 Consultation requested by: Dr. Jefferson Pharmacy is consulted to initiate Vancomycin IV/PO dosing therapy, order appropriate labs and adjust drug dose/frequency. - Subjective The patient is a 63 year old M admitted on 04/05/19 14:04. - Objective Height: 5 ft 7 in Weight: 74 kg Vital Signs (Past 12hrs): Vital Signs Temp Pulse Pulse Resp BP BP Pulse Ox 04/05/19 14:35 110 H 16 139/71 04/05/19 14:27 89 16 112/58 L 99 04/05/19 13:28 108 H 14 157/88 H 04/05/19 12:42 105 H 16 131/76 97 04/05/19 11:54 95 04/05/19 11:17 36.8 C 109 H 16 112/67 95 Lab Results (24hrs): Laboratory Tests (24 Hours) 04/05/19 04/05/19 12:04 12:04 WBC 12.95 H Neut # (Auto) 12.18 H Creatinine 1.15 Est Cr Clr Drug Dosing 59.9 Micro Results: 04/05/19 14:40 Aerobic Blood Culture - Pending Blood Anaerobic Blood Culture - Pending 04/05/19 14:40 Aerobic Blood Culture - Pending Blood Anaerobic Blood Culture - Pending - Risk Factors for Resistance * Antimicrobial use within the last 90 days [Cefuroxime 500mg PO BID X7 days 03/09-03/16 for UTI] - Assessment & Plan Assessment Mr. Humphreys is a 63 year old M with hx of cerebal palsy and spina bifida. He is wheelchair bound. He presents to the ED today with complaints of increased pain and swelling to his right lower extremity which began yesterday. There is no reported/observed purulence. He has a chronic indwelling plunkett catheter with history of UTI with MDROs - proteus mirabilis and providencia stuartii - see previous cultures if needed. Blood culture pending. Pt currently afebrile, WBC 13K. Unclear if renal function is at baseline? Previous admissions SCr range from 0.7-1.0. Possible that overall renal fxn has declined? Plan Vancomycin for treatment of RLE cellulitis. Vancomycin IV * Estimated PK Parameters: Vd 0.7 L/kg, Cosme 0.054 hr-1, t1/2 ~13 hr * Loading dose: 1750 mg (~24 mg/kg) * Maintenance dose: 1000 mg IV (13.5 mg/kg) every 18 hours * Goal trough level for SSTI: 10 to 15 mcg/mL * Trough/Random level ordered for 04/08/19 before 4th maintenance dose. Pharmacy will continue to follow and will adjust dose/frequency as necessary. Thank you.
[2019-04-05] MEDS ORDERED: GLUCOSE 40% GEL 15 GM TUBE PO PRN (19:45)
[2019-04-05] MEDS ORDERED: GLUCOSE 10 TABS/TUBE PO PRN (19:45)
[2019-04-05] MEDS ORDERED: CARBOHYDRATES FOR HYPOGLYCEMIA PO PRN (19:45)
[2019-04-05] MEDS ORDERED: DEXTROSE 50% 50 ML SYRINGE IV PRN (19:45)
[2019-04-05] MEDS ORDERED: GLUCAGON FOR INJ 1 MG VIAL IM PRN (19:45)
[2019-04-05] MEDS: NIACIN 500 MG TAB PO SCH (20:31)
[2019-04-05] MEDS: GEMFIBROZIL 600 MG TAB PO SCH (20:31)
[2019-04-05] MEDS: POTASSIUM CHLORIDE 20 MEQ TABCR PO SCH (20:32)
[2019-04-05] MEDS: TRAMADOL HCL 50 MG TABLET PO SCH (20:34)
[2019-04-05] MEDS: HEPARIN SOD 5,000 UNIT/0.5 ML VIAL SQ SCH (21:36)
[2019-04-06 05:34] LABS: Hematocrit (blood only) 31.3 % (42-52); Hemoglobin 10.5 g/dL (14.0-18.0); Mean Corpuscular Hemoglobin 33.7 pg (25-34); Mean Corpuscular Hgb Conc 33.5 g/dL (32-36); Mean Corpuscular Volume 100.3 fL (80-100); Mean Platelet Volume 8.6 fL (7.4-10.4); Platelet Count 189 K/uL (130-400); RDW Coefficient of Variation 13.8 % (11.5-14.5); RDW Standard Deviation 50.1 fL (36.4-46.3); Red Blood Count 3.12 M/uL (4.7-6.1); White Blood Count 8.95 K/uL (4.8-10.8)
[2019-04-06] MEDS: HEPARIN SOD 5,000 UNIT/0.5 ML VIAL SQ SCH ×3 (05:55→21:28)
[2019-04-06 06:05] LABS: BUN Creatinine Ratio 20.9 (10-20); Calcium 9.1 mg/dl (8.5-10.1); Creatinine Clr Calc Pharmacy 77.4 ml/min; Est GFR (Non-African American) 89.7; Potassium 3.4 mmol/L (3.5-5.1)
[2019-04-06] MEDS: POTASSIUM CHLORIDE 20 MEQ TABCR PO SCH ×2 (07:38→20:37)
[2019-04-06] MEDS: ASPIRIN 81 MG ECTAB PO SCH (07:38)
[2019-04-06] MEDS: GEMFIBROZIL 600 MG TAB PO SCH ×2 (07:38→20:36)
[2019-04-06] MEDS: FINASTERIDE 5 MG TAB PO SCH (07:39)
[2019-04-06] MEDS: PROPRANOLOL HCL LA 80 MG CAPCR PO SCH (07:39)
[2019-04-06] MEDS: MAGNESIUM OXIDE 400 MG TAB PO SCH (07:39)
[2019-04-06] MEDS: LISINOPRIL 2.5 MG TAB PO SCH (07:39)
[2019-04-06] MEDS ORDERED: POTASSIUM CHLORIDE 20 MEQ TABCR PO STA (08:22)
[2019-04-06] MEDS: INSULIN ASPART 100 UNITS/ML 3 ML PEN SC SCH ×4 (08:54→21:29)
[2019-04-06] MEDS: TRAMADOL HCL 50 MG TABLET PO SCH ×2 (09:00→20:41)
--- NOTE | 2019-04-06 09:33 | Hospitalist Progress Note ---
Date of Service April 06, 2019 Assessment & Plan (1) Cellulitis of right lower leg: Continue IV Rocephin and vancomycin. BC pending ESR 80, CRP 36 - MRI without abscess or osteomyelitis (2) Tachycardia: HR in the 120s this morning EKG showing ST Improved this afternoon to low 100s Patient asymptomatic Continue home propranolol. (3) Hypertension: Continue home propranolol, furosemide, lisinopril, (4) Hyperlipidemia: Home niacin, gemfibrozil (5) Diabetes: Sliding-scale insulin per protocol. (6) Altered mental status: Resolved (7) Hypokalemia: Replaced prp am (8) Paraplegia: due to spina bifida and cerebral palsy (9) Cerebral palsy: Continue with supportive care (10) Spina bifida: supportive care (11) DNR (do not resuscitate): DNR (12) DVT prophylaxis: Subcu heparin Supervising Physician Co-Signing Physician Notes I examined and seen patient with TRENTON Rivera and agree with assessment and plan. Subjective Mr. Humphreys is awake and alert, able to answer orientation questions appropriately. Denies any pain or discomfort. Sister and her updated at bedside. ROS Constitutional: no chills, aches, sweats or fever Respiratory: no sob,cough, sputum, or wheezing Cardiac: no chest pain, palpitations, edema, orthopnea or lightheadedness GI: no abdominal pain, nausea, vomiting, diarrhea or constipation : no dysuria or hesitancy Extremities: no joint pain or weakness Skin: no rash All other systems reviewed and negative Physical Exam Physical Exam: General: no distress Eyes: normal inspection, PERLL Respiratory: chest non tender, clear to auscultation, normal breath sounds, no respiratory distress, no accessory muscle use Cardiac: regular rate and rhythm, no rub or gallop, no murmur, right foot edema, no jvd GI/: active bowel sounds, no abd pain or tenderness, soft, non distended Extremities: normal range of motion, normal strength, non tender Neuro/Psych: alert and oriented x 3, normal mood and affect Skin: normal color, dry, erythema right leg knee down, open ulceration lateral foot Results & Data Vital Signs (Past 12 Hours) Vital Signs Temp Pulse Resp BP Pulse Ox 04/06/19 08:58 125 H 18 132/79 96 04/06/19 07:45 118 H 04/06/19 07:17 36.9 C 120 H 18 122/68 95 04/05/19 22:55 36.9 C 100 H 16 143/81 H 93 PG Care Time/CCT Total # of Minutes Spent Total Time Spent with Patient: Total time spent is greater than 50% in coordination of care (as documented) at patient's floor/unit and/or counseling patient: (1) Diabetes Diabetes mellitus complication detail: with unspecified neuropathy Diabetes mellitus complication status: with neurologic complications Diabetes mellitus correction insulin use: without correction use Diabetes mellitus type: type 2 Qualified Code(s): E11.40 - Type 2 diabetes mellitus with diabetic neuropathy, unspecified (2) Hyperlipidemia Hyperlipidemia type: mixed hyperlipidemia Qualified Code(s): E78.2 - Mixed hyperlipidemia (3) Hypertension Hypertension type: essential hypertension Qualified Code(s): I10 - Essential (primary) hypertension
[2019-04-06] MEDS ORDERED: VANCOMYCIN HCL 1,000 MG in SODIUM CHLORIDE 0.9% 250 ML IV SCH ×2 (10:00→13:00)
--- NOTE | 2019-04-06 13:23 | Magnetic Resonance Report ---
Study: MRI right ankle HISTORY: Pain. Cellulitis. COMPARISON: None. FINDINGS: Signal characteristics of the bony structures are unremarkable. All major ligamentous and tendinous structures are intact. Findings of circumferential soft tissue edema of the distal aspect of the lower leg as well as the do rsal aspect of the foot.. No evidence for abnormality in the posterior plantar fascia. Achilles tendon is intact. No evidence for bone marrow replacement. IMPRESSION: 1. Nonspecific soft tissue edema/cellulitis surrounding the bulk of the lower leg and dorsal ankle 2. No major ligamentous or tendinous disruption. 3. No evidence for a bone marrow replacing or bony destructive process. Electronically signed by: Thor Desir M.D. 04/06/2019 1:22 PM
--- NOTE | 2019-04-06 13:25 | Magnetic Resonance Report ---
MRI OF THE RIGHT FOREFOOT NO CONTRAST CLINICAL HISTORY: cellulitis, wound evaluate for osteomyelitis/abscess COMPARISON STUDY: No previous studies for comparison. FINDINGS: Imaging was performed in the axial, sagittal, and coronal planes. The study is limited from a technical standpoint secondary to patient motion artifact. There is diffuse dorsal soft tissue edema. There are no areas of marrow edema to indicate acute osteomyelitis. There are no fluid collections to indicate a focal abscess. No soft tissue masses are visualized on this noncontrast study IMPRESSION: 1. Diffuse dorsal soft tissue edema consistent with the clinical history of cellulitis 2. No evidence of osteomyelitis 3. No abscess identified Electronically signed by: Tl Evangelista M.D. 04/06/2019 1:24 PM
[2019-04-06] MEDS: cefTRIAXone SODIUM 1,000 MG in DEXTROSE 5% 50 ML IV SCH (13:57)
[2019-04-06] MEDS: NIACIN 500 MG TAB PO SCH (20:37)
[2019-04-06] MEDS: VANCOMYCIN HCL 1,000 MG in SODIUM CHLORIDE 0.9% 250 ML IV SCH (23:35)
[2019-04-07] MEDS: HEPARIN SOD 5,000 UNIT/0.5 ML VIAL SQ SCH ×3 (05:25→20:54)
[2019-04-07 06:41] LABS: Hematocrit (blood only) 30.7 % (42-52); Hemoglobin 10.5 g/dL (14.0-18.0); Mean Corpuscular Hemoglobin 34.1 pg (25-34); Mean Corpuscular Hgb Conc 34.2 g/dL (32-36); Mean Corpuscular Volume 99.7 fL (80-100); Mean Platelet Volume 8.9 fL (7.4-10.4); Platelet Count 211 K/uL (130-400); RDW Coefficient of Variation 13.9 % (11.5-14.5); RDW Standard Deviation 50.2 fL (36.4-46.3); Red Blood Count 3.08 M/uL (4.7-6.1)
[2019-04-07 06:48] LABS: BUN Creatinine Ratio 21.6 (10-20); Calcium 9.3 mg/dl (8.5-10.1); Creatinine Clr Calc Pharmacy 89.4 ml/min; Est GFR (African American) 110.4; Est GFR (Non-African American) 95.2; Potassium 3.7 mmol/L (3.5-5.1)
[2019-04-07] MEDS: INSULIN ASPART 100 UNITS/ML 3 ML PEN SC SCH ×4 (09:44→20:53)
[2019-04-07] MEDS: PROPRANOLOL HCL LA 80 MG CAPCR PO SCH (09:47)
[2019-04-07] MEDS: MAGNESIUM OXIDE 400 MG TAB PO SCH (09:47)
[2019-04-07] MEDS: GEMFIBROZIL 600 MG TAB PO SCH ×2 (09:47→20:07)
[2019-04-07] MEDS: POTASSIUM CHLORIDE 20 MEQ TABCR PO SCH ×2 (09:47→20:08)
[2019-04-07] MEDS: LISINOPRIL 2.5 MG TAB PO SCH (09:47)
[2019-04-07] MEDS: FINASTERIDE 5 MG TAB PO SCH (09:47)
[2019-04-07] MEDS: ASPIRIN 81 MG ECTAB PO SCH (09:48)
[2019-04-07] MEDS: TRAMADOL HCL 50 MG TABLET PO SCH ×2 (09:49→20:12)
--- NOTE | 2019-04-07 12:55 | Hospitalist Progress Note ---
Date of Service April 07, 2019 Assessment & Plan (1) Cellulitis of right lower leg: Continue IV Rocephin and vancomycin. BC ngtd ESR 80, CRP 36 - MRI without abscess or osteomyelitis Erythema improving (2) Tachycardia: HR improving somewhat to around 100 - [address] 04/06 Patient asymptomatic Continue home propranolol - will consider increasing if heart rate does not continue to improve (3) Hypertension: Continue home propranolol, furosemide, lisinopril, (4) Hyperlipidemia: Home niacin, gemfibrozil (5) Diabetes: Sliding-scale insulin per protocol. (6) Altered mental status: Resolved (7) Hypokalemia: Replaced prp am (8) Paraplegia: due to spina bifida and cerebral palsy (9) Cerebral palsy: Continue with supportive care (10) Spina bifida: supportive care (11) DNR (do not resuscitate): DNR (12) DVT prophylaxis: Subcu heparin Supervising Physician Co-Signing Physician Notes I examined and seen patient with TRENTON Rivera and agree with assessment and plan. Subjective Mr. Humphreys is feeling well, no complaints. He is alert and oriented. ROS Constitutional: no chills, aches, sweats or fever Respiratory: no sob,cough, sputum, or wheezing Cardiac: no chest pain, palpitations, edema, orthopnea or lightheadedness GI: no abdominal pain, nausea, vomiting, diarrhea or constipation : no dysuria or hesitancy Extremities: no joint pain or weakness Skin: no rash All other systems reviewed and negative Physical Exam Physical Exam: General: no distress Eyes: normal inspection, PERLL Respiratory: chest non tender, clear to auscultation, normal breath sounds, no respiratory distress, no accessory muscle use Cardiac: regular rate and rhythm, no rub or gallop, no murmur, no edema, no jvd GI/: active bowel sounds, no abd pain or tenderness, soft, non distended Extremities: normal range of motion, normal strength, non tender Neuro/Psych: alert and oriented x 3, normal mood and affect Skin: normal color, dry, improving right lower extremity erythema Results & Data Vital Signs (Past 12 Hours) Vital Signs Temp Pulse Pulse Pulse Resp BP BP 04/07/19 12:19 102 H 105 H 126/78 04/07/19 06:52 36.7 C 110 H 16 118/71 04/07/19 03:11 36.6 C 87 16 116/74 Pulse Ox 04/07/19 12:19 95 04/07/19 06:52 95 04/07/19 03:11 95 PG Care Time/CCT Total # of Minutes Spent Total Time Spent with Patient: Total time spent is greater than 50% in coordination of care (as documented) at patient's floor/unit and/or counseling patient: (1) Diabetes Diabetes mellitus complication detail: with unspecified neuropathy Diabetes mellitus complication status: with neurologic complications Diabetes mellitus alf insulin use: without intermediate frame tender use Diabetes mellitus type: type 2 Qualified Code(s): E11.40 - Type 2 diabetes mellitus with diabetic neuropathy, unspecified (2) Hyperlipidemia Hyperlipidemia type: mixed hyperlipidemia Qualified Code(s): E78.2 - Mixed hyperlipidemia (3) Hypertension Hypertension type: essential hypertension Qualified Code(s): I10 - Essential (primary) hypertension
[2019-04-07] MEDS: cefTRIAXone SODIUM 1,000 MG in DEXTROSE 5% 50 ML IV SCH (13:18)
[2019-04-07] MEDS ORDERED: VANCOMYCIN TROUGH ONE (13:30)
[2019-04-07] MEDS: VANCOMYCIN HCL 1,000 MG in SODIUM CHLORIDE 0.9% 250 ML IV SCH (13:52)
--- NOTE | 2019-04-07 15:07 | Pharmacy Report ---
Pharmacy Abx Dose Short Note - Date of Service April 07, 2019 - Assessment & Plan Assessment 63 year old M receiving empiric vancomycin and ceftriaxone for treatment of right lower leg cellulitis WBC trending down from admission (12.9 -> 6.5), SCr also trending down since admission (1.15 -> 0.77) ESR and CRP both elevated, but MRI of the foot revealed no evidence of osteomyelitis Blood cultures x 2: no growth after 24 hours Day # 3 of antimicrobial therapy. Plan Vancomycin * Trough level of 8.3 mcg/mL is subtherapeutic * Increase dose to 1000 mg IV every 12 hours * Will give next dose 10 hours after previous dose * Goal trough level for cellulitis : 10 to 15 mcg/mL * Follow-up trough level ordered for: 04/09/19 @1130 Ceftriaxone * Current regimen of 1 g IV q24h is appropriate for this patient based on indication and weight less than 80 kg Pharmacy will continue to follow and will adjust dose/frequency as necessary. Thank you.
[2019-04-07] MEDS: NIACIN 500 MG TAB PO SCH (20:07)
[2019-04-08] MEDS ORDERED: VANCOMYCIN HCL 1,000 MG in SODIUM CHLORIDE 0.9% 250 ML IV SCH
[2019-04-08 05:04] LABS: Hematocrit (blood only) 29.5 % (42-52); Hemoglobin 10.4 g/dL (14.0-18.0); Mean Corpuscular Hemoglobin 33.9 pg (25-34); Mean Corpuscular Hgb Conc 35.3 g/dL (32-36); Mean Corpuscular Volume 96.1 fL (80-100); Platelet Count 204 K/uL (130-400); RDW Coefficient of Variation 13.4 % (11.5-14.5); RDW Standard Deviation 47.5 fL (36.4-46.3); Red Blood Count 3.07 M/uL (4.7-6.1); White Blood Count 5.88 K/uL (4.8-10.8)
[2019-04-08 05:22] LABS: BUN Creatinine Ratio 19.3 (10-20); Calcium 8.8 mg/dl (8.5-10.1); Creatinine Clr Calc Pharmacy 90.6 ml/min; Est GFR (Non-African American) 95.7; Potassium 3.3 mmol/L (3.5-5.1)
[2019-04-08] MEDS: HEPARIN SOD 5,000 UNIT/0.5 ML VIAL SQ SCH ×2 (05:29→14:10)
[2019-04-08 07:14] VITALS: O2SAT 97
[2019-04-08] MEDS ORDERED: POTASSIUM CHLORIDE 20 MEQ TABCR PO STA (08:03)
[2019-04-08] MEDS: INSULIN ASPART 100 UNITS/ML 3 ML PEN SC SCH ×2 (09:25→12:51)
[2019-04-08] MEDS: MAGNESIUM OXIDE 400 MG TAB PO SCH (09:26)
[2019-04-08] MEDS: PROPRANOLOL HCL LA 80 MG CAPCR PO SCH (10:09)
[2019-04-08] MEDS: POTASSIUM CHLORIDE 20 MEQ TABCR PO SCH (10:09)
[2019-04-08] MEDS: ASPIRIN 81 MG ECTAB PO SCH (10:09)
[2019-04-08] MEDS: FINASTERIDE 5 MG TAB PO SCH (10:10)
[2019-04-08] MEDS: TRAMADOL HCL 50 MG TABLET PO SCH (10:10)
[2019-04-08] MEDS: GEMFIBROZIL 600 MG TAB PO SCH (10:10)
[2019-04-08] MEDS: LISINOPRIL 2.5 MG TAB PO SCH (10:10)
[2019-04-08 11:02] VITALS: BP 122/74; TEMP 97.7
--- NOTE | 2019-04-08 13:27 | Discharge Summary ---
Date of Service April 08, 2019 Admission HPI Per Admitting Provider The patient is 63-year-old male with history of spina bifid and cerebral palsy. He presented to the ER today with complaints of right leg swelling and redness getting worse since yesterday. He has history of cellulitis of the lower extremities in the past. The further work-up done in the ER showed that patient has right lower extremity cellulitis. He was started on IV Rocephin and vancomycin and will be admitted for further evaluation and management. According to his brother who is present at the bedside, the patient is more lethargic today and has decreased mental status. Patient denies any fever. No purulent drainage from the leg. Patient is wheelchair-bound. Principal Diagnosis cellulitis Discharge Exam Constitutional WD/WN, vitals as above Respiratory normal respiratory effort, lungs clear to auscultation Cardiovascular RRR, no murmur, no edema Gastrointestinal (Abdomen) Inspection/Auscultation: abdomen normal to inspection and normal bowel sounds; abdomen not distended Percussion/Palpation: abdomen soft; abdomen nontender Musculoskeletal paraplegic Skin erythema in right lower extremity improving Neurologic awake moves arms Psychiatric A+Ox3, euthymic affect Discharge Data Allergies Allergy/AdvReac Type Severity Reaction Status Date / Time No Known Allergies Allergy Verified 04/05/19 14:03 Consultations 04/05/19 13:48 ED Decision to Admit Stat Ordered Studies 04/05/19 11:44 US venous doppler LE RT Stat 04/06/19 10:07 MR ankle RT wo con Routine MR foot RT w/o con Routine Hospital Course (1) Cellulitis of right lower leg: Given IV Rocephin and vancomycin - will change to po cefdinir and doxycycline for a total of 7 days of treatment BC ngtd ESR 80, CRP 36 - MRI without abscess or osteomyelitis Erythema improving (2) Tachycardia: HR improving somewhat to around 100 - [address] 04/06 Patient asymptomatic Will increase propranolol from 80 mg daily to 120 mg daily (3) Hypertension: Continue propranolol, furosemide, lisinopril, (4) Hyperlipidemia: Home niacin, gemfibrozil (5) Diabetes: Sliding-scale insulin per protocol, resume metformin for home (6) Altered mental status: Resolved (7) Hypokalemia: Replaced prp am (8) Paraplegia: due to spina bifida and cerebral palsy (9) Cerebral palsy: Continue with supportive care (10) Spina bifida: supportive care (11) DNR (do not resuscitate): DNR (12) DVT prophylaxis: Subcu heparin Total Time Total Time Spent Total Time Spent (In Minutes): greater than 30 minutes Discharge Plan Discharge Items Patient Disposition: Home - Home Health Services Reason For Visit: RIGHT LEG CELLULITIS Discharge Diagnosis: right leg cellulitis Activity: Resume your previous activity Non-emergency contact: Primary Care Provider Call non-emergency contact if: you have any medication questions Follow-up/Referrals: Gaudencio Chowdhury MD [Primary Care Provider] - 04/14/19 3:00 pm (Please, follow up at Dr. Chowdhury's office with his associate, Cecilia Esteban PA-C on FridayApril 14 at 3:00 pm. *If you need to change this appointment, call the office at [phone].) Diet: Carb Consistent or DM2 Addtl Attending Provider Instructions: Right lateral foot wound - please have home health clean with saline, cover with Aquacel Ag and secure with Optifoam. Change every other day Please follow up with your primary care provider next week You will go home with four more days of antibiotics. Please complete your entire regimen. One of your antibiotics is doxycycline. Doxycycline can cause photosensitivity so please use sunscreen or cover ups and sunglasses when outside until you have finished your course. You should also avoid taking the medication with dairy products. Doxycycline can cause gastrointestinal discomfort and nausea, you can try taking the medication with food to avoid this effect. Do not take bismuth (Pepto-Bismol), calcium, iron, magnesium, zinc, multivitamins with minerals, colestipol, cholestyramine, didanosine, or antacids within 2 hours of this drug.Take with a full glass of water. Do not lie down for at least 30 minutes after taking this drug. I have increased your propranolol to 120 mg from 80 mg. Please have home health check your pulse when they visit to monitor. Let your doctor know if you are running below 60. Pending Studies at Discharge: No Stand-Alone Forms: [employer], Opioid Pain Management, Smoking Cessation Medications and DC Order Prescriptions: New doxycycline hyclate 100 mg Capsule 100 mg PO BID@1000,2200 Qty: 8 RF: 0 cefdinir 300 mg Capsule 300 mg PO BID Qty: 8 RF: 0 propranolol 120 mg capsule,extended release 24hr 120 mg PO DAILY Qty: 30 RF: 0 Continued nystatin 100,000 unit/gram powder 1 appln TOP BID Qty: 30 RF: 0 gemfibrozil 600 mg tablet 600 mg PO BID Qty: 60 RF: 3 niacin [Niacor] 500 mg tablet 2,500 mg PO HS Qty: 150 RF: 5 miconazole nitrate 2 % cream 1 appln TOP BID Qty: 30 RF: 1 Wheelchair (Manual) Device .ROUTE .MEDSUPPLY Qty: 1 RF: 0 tramadol 50 mg tablet 50 mg PO BID Qty: 60 RF: 0 diaper,brief,adult,disposable misc .ROUTE .MEDSUPPLY Qty: 32 RF: 0 blood-glucose meter [[employer]] misc .ROUTE .MEDSUPPLY Qty: 1 RF: 0 cholecalciferol (vitamin D3) 1,000 unit tablet 3,000 units PO QAM RF: 0 [employer]Touch Ultra Blue Test Strip strip .ROUTE .MEDSUPPLY Qty: 100 RF: 5 furosemide 40 mg Tablet 40 mg PO QAM RF: 0 aspirin [Aspirin Low Dose] 81 mg Tablet,Delayed Release (Dr/Ec) 81 mg PO QAM RF: 0 ascorbic acid (vitamin C) [Vitamin C] 500 mg Tablet 500 mg PO QAM RF: 0 metformin 1,000 mg Tablet 1,000 mg PO BID RF: 0 polyethylene glycol 3350 [Miralax] 17 gram/dose Powder 17 g PO DAILY PRN (Reason: Constipation) RF: 0 magnesium oxide 400 mg (241.3 mg magnesium) tablet 400 mg PO QAM RF: 0 potassium chloride 20 mEq tablet extended release 20 meq PO BID RF: 0 sennosides-docusate sodium [Senna with Docusate Sodium] 8.6-50 mg Tablet 1 tab PO BID RF: 0 lisinopril 2.5 mg tablet 2.5 mg PO QAM RF: 0 finasteride 5 mg tablet 5 mg PO QAM RF: 0 Discontinued propranolol 80 mg capsule,extended release 24 hr 80 mg PO QAM RF: 0 Discharge Orders: Discharge Order (Routine); Ordered 04/08/19 Ordered By: Hansa Kim/Other Patient Handouts: Cellulitis Dc Admission Data Admit Date/Time: 04/05/19 14:04 Attending Provider: Maryana Grace Admit Provider: Fernando Jefferson Primary Care Provider: Gaudencio Chowdhury Other Providers: Fernando Jefferson Other Interventions: Discharge Summary Assessment (RN) Last Done: 04/08/19 14:27 DC Date/Time DO NOT enter until pt leaves facility: 04/08/19 15:23 Supervising Physician Co-Signing Physician Notes I examined and seen patient with TRENTON Rivera and agree with assessment and plan.
[2019-04-08 14:38] VITALS: PULSE 102
[2019-04-08] MEDS ORDERED: VANCOMYCIN TROUGH ONE (18:30)
[2019-04-08] MEDS ORDERED: CEFDINIR 300 MG CAP PO SCH (21:00)
[2019-04-08] MEDS ORDERED: DOXYCYCLINE HYCLATE 100 MG CAP PO SCH (21:00)
[2019-04-09] MEDS ORDERED: VANCOMYCIN TROUGH ONE (11:30)
[2019-04-15] MEDS ORDERED: VANCOMYCIN TROUGH ONE (03:30)
== END 2019-04-08 15:23 | disposition home health service (06) | DRG 603 ==
LOC: ED 11:07 → 3W 14:04 → SUATTDRO 14:04 → 3W 15:12

== ENCOUNTER 2020-12-22 22:59 | Inpatient (IN) ==
[2020-12-22 23:46] LABS: Alanine Aminotransferase 17 U/L (12-78); Albumin Level 3.3 gm/dl (3.4-5.0); Aspartate Aminotransferase 15 U/L (15-37); BUN Creatinine Ratio 29.3 (10-20); Blood Urea Nitrogen 67 mg/dl (7-18); Calcium 8.8 mg/dl (8.5-10.1); Carbon Dioxide 25 mmol/L (21-32); Chloride 99 mmol/L (98-107); Est GFR (African American) 33.4 ml/min; Est GFR (Non-African American) 28.8 ml/min; Glucose 208 mg/dl (70-99); Magnesium 2.3 mg/dl (1.8-2.4); Potassium 3.6 mmol/L (3.5-5.1); Sodium 134 mmol/L (136-145)
[2020-12-22 23:56] LABS: Alkaline Phosphatase 53 U/L (45-117); Bilirubin,Total 0.3 mg/dl (0.2-1); Globulin 3.3 gm/dl (2.5-4.0); Thyroid Stimulating Hormone 0.569 uIu/ml (0.300-4.500); Total Protein 6.6 gm/dl (6.4-8.2); Troponin I < 0.015 ng/ml (0-0.045)
[2020-12-23 00:04] LABS: INR 1.1 (0.9-1.1); Partial Thromboplastin Ratio 0.8; Partial Thromboplastin Time 20.6 Seconds (21.0-31.0)
[2020-12-23] MEDS ORDERED: SODIUM CHLORIDE 0.9% 1000ML 1,000 ML IV ONE (00:19)
--- NOTE | 2020-12-23 00:25 | Emergency Department Note ---
Impression & Plan Acute anemia, Generalized weakness, Leukocytosis, Constipation, Acute renal failure, Infected pressure ulcer, Acute dehydration ED Provider Note Name: MARCELLUS KIRKPATRICK Age: 65 Sex: M Arrives Via: Ambulance Informant: Patient, Brother, Sister ED Provider: Arden Forbes MD Chief Complaint: Weakness Impression: See Above Medical Decision Makin yr old male with Parkinson's arrives for evaluation worsening weakness over the last week. Has been dealing with worsening pressure/diabetic ulcers on legs and recent abx use. He furthermore has gotten so weak that he has fallen out of wheelchair and unable to get up. Exam shows dehydrated, tired, male with pale conjunctiva, clear lungs, soft abdomen, and no overt cellulitis on legs. Initial BP a bit on low side and given 1 L NSS bolus with vast improvement in BP and his coloration. Labs returning showing acute Cr bump, acute anemia, and leukocytosis. Cultures and lactate sent with Type/Cross. Patient consented for transfusion in setting of acute anemia, hypotension and renal failure felt this is indicated. Cr elevation likely multifactorial including dehydration, anemia, and possible abx use. WBC elevation likely infectious related to wounds on legs. Urine OK, chest clear and abdomen soft. I did opt for CT a/p wo contrast which reveals no overt infection either. Anemia of uncertain etiology, as to whether chronic disease or other. Rectal exam with brown heme negative stool. No free fluid noted on ct a/p either. He is quite constipation on ct though stool is soft on exam and I suspect this is more functional issue and chronic. I did get CT head due to falls which is negative as well. Hospitalist in to evaluate further. Prior Medical Record and Triage/Nursing Notes reviewed by Me Additional history obtained from chart, brother and sister Differentials:Infection, dehydration, metabolic abnormality, hypo/hyperglycemia, electrolyte disturbance, anemia, hypoxia, cardiac sources, intracerebral event, toxicologic, neurologic, as well as other pathologies. Vital Signs: reviewed and remarkable for hypotension Interventions: Saline lock, nss bolus 1 L IV, 2 Units PRBC ordered (one started in ED) Labs:Reviewed and remarkable for anemia, renal failure, leukocytosis Imaging:[facility] Radiologist interpretation reviewed by me: "CT HEAD: Comparison made to prior study from April 12, 2014. There is no acute intracranial mass or bleed. I density in the periventricular white matter is stable from prior study and suggests idiopathic partial calcification. There is some sclerosis and fluid attenuation in the left mastoid air cells which is stable from prior study likely related to chronic inflammation Radiologist: Castillo Berry MD" "CT ABDOMEN & PELVIS Without Contrast: Direct comparison is made to prior study of April 20, 2016 Liver appears normal. There is a splenic calcification suggesting a splenic granuloma. Pancreas appears normal. Gallbladder is collapsed. There are coarse calcifications suggesting cholelithiasis, and possibly gallbladder wall calcifications. Similar findings were noted at the time of the previous study. There is a large amount of retained fecal material most prominently in the rectum and sigmoid colon. Colonic wall is not thickened and there is no pneumatosis. Proximal segment turnout distended but are filled with retained fecal material. There is some mild thickening in the duodenum. The adrenals, kidneys, ureters appear normal. There is a suprapubic percutaneous bladder catheter. There is no free peritoneal air or fluid. Impression: Marked constipation. Cholelithiasis with possible gallbladder wall calcifications. Suprapubic bladder catheter Radiologist: Castillo Berry MD" EKG:Per My Interpretation: Indication Weakness: NSR 80 bpm, qtc 447. No Ectopy. No Ischemia. Compared to EKG 04/06/19, no significant changes. Cardiac/Tele Monitoring: Cardiac Monitoring: An Order was placed for continuous cardiac monitoring. The monitor shows a rate of 90 with a normal sinus rhythm. Consults:Dr Saima ARNOLD Hospitalist Plan: Disposition:Hospitalization. Condition: Fair History of Present Illness:65 yr old male arrives for evaluation of generalized weakness. Patient with history Parkinson's who notes inability to walk, chronic wounds on legs, and chronic indwelling plunkett. Over the last week worsening weakness and fatigue. He has fallen several times out of bed and wheel chair because of this, though denies injury, headache nor neck pain. Today seen at wound clinic and noted wounds on legs worsening thus started on antibiotics (believed Doxycycline). Notes weakness too much tonight and came to ED. Denies headache, neck pain, sob, chest pain, fevers, chills, nausea, vomiting, diarrhea, pain rashes nor other symptoms. Admits poor oral intake regularly but states thirsty currently. Nothing makes better nor worse. No medications prior to arrival. No history of similar. ROS: See above HPI for pertinent positives & negatives. A total of 10 systems reviewed and were otherwise negative. Past Medical History:See Below Past Surgical History:See Below Family History:See Below Social History:See Below Home Medications:See Below Allergies:Sulfa/Bactrim Vitals:Blood Pressure: 106/46, Pulse 79, RR 22, T 36.7C, O2 98% on RA Physical Exam: GENERAL: Patient is chronically unwell and dehydrated appearing and in minimal distress. Dry appearing EYES: No scleral icterus, unremarkable pupils, pale conjunctiva ENT: Mucous membranes dry, no nasal congestion. NECK: No masses appreciated, nomeningismus, trachea is midline. RESPIRATORY: No dyspnea. Clear to auscultation and equal bilaterally. No wheeze, no rhonchi. CARDIOVASCULAR: Regular rate and rhythm.No murmurs, rubs, gallops appreciated. GASTROINTESTINAL: Abdomen soft, non-tender, no peritonitis.Bowel sounds positive.No masses appreciated. BACK: No midline tenderness, no CVA tenderness EXTREMITIES: Normal motion all extremities, no cyanosis, mild lower leg edema. NEUROLOGIC: Alert and oriented though sleepy, bilateral significant leg weakness, moves arms though difficulty with find movement, cranial nerves grossly intact. SKIN: Wound dressed bilateral knees and right foot. No rash, no jaundice, no diaphoresis. PSYCH: Appropriate GCS: 14 ED Course: Times/Reassessments: improvement with IV fluids. Agrees with PRBCs and brother signed consent for him Critical Care: I have personally spent 45 minutes of critical care time in the direct management of this patient. Acute anemia unknown etiology with acute renal failure, requiring PRBC transfusion emergently. This was a life/limb threatening event. This 45 minutes is in excess of all separately billable procedures. Arden Forbes MD Past Med/Surg History Medical History Cellulitis of right lower leg Cerebral palsy Diabetes Heart disease HTN (hypertension) Metabolic encephalopathy Pneumonia Spina bifida Traumatic wound UTI (urinary tract infection) due to urinary indwelling catheter Wound of right foot Surgical History No pertinent past surgical history Family History Mother Peripheral vascular disease Other Cancer Diabetes Heart disease Hypertension Denies family history of Ovarian cancer Prostate cancer Myocardial infarction Breast cancer Colorectal cancer Social History (Updated 12/22/20 @ 09:27 by Jojo Cheng RN) Smoking Status: Former smoker Tobacco Type: Cigarettes Second Hand Exposure: No; Hx Alcohol Use: No Hx Substance Use: No Preferred Language: Amharic Communication Ability: Effective Visual Impairment: No Limitations Hearing Ability: Use of Hearing Aid General Production Manager Required: No Beliefs That Will Affect Care: None marital status: Single Current Living Situation: Alone Current Living Situation Comment: has caregivers from [id number] and 2 hours in the evening current occupational status: disabled Other Information That Helps Us Care for You: No Feels Safe at Home: Yes Safety Concerns: Feels Safe At This Time caffeine: Yes during the past year weight has: remained stable Dental Care, Regularly: No Physical Activity Frequency: Does not Exercise Seatbelt Use: never Assistive Devices: Denture - Upper, Denture - Lower, Glasses and Wheelchair Assistive Devices Comment: Electric wheelchair when outside of home. Allergies Allergies Allergy/AdvReac Type Severity Reaction Status Date / Time sulfamethoxazole AdvReac Unknown Nausea Verified 12/22/20 09:19 [From Bactrim] trimethoprim [From Bactrim] AdvReac Unknown Nausea Verified 12/22/20 09:19 Home Meds Home Medications Medication Instructions Recorded Confirmed aspirin 81 mg tablet,delayed 81 mg PO QAM 04/28/18 12/23/20 release (Aspirin Low Dose) blood-glucose meter (OneTouch #1 ea 11/05/18 12/11/20 Verio Meter) cholecalciferol (vitamin D3) 25 3,000 units PO QAM tab 11/05/18 12/23/20 mcg (1,000 unit) tablet magnesium oxide 400 mg (241.3 mg 400 mg PO QAM 11/05/18 12/23/20 magnesium) tablet metformin 1,000 mg tablet 1,000 mg PO BID 02/10/20 12/23/20 docusate sodium 100 mg tablet 100 mg PO BID 12/23/20 12/23/20 doxycycline hyclate 100 mg capsule 100 mg PO BID 12/23/20 12/23/20 potassium chloride 20 mEq 20 meq PO DAILY 12/23/20 12/23/20 tablet,extended release tramadol 50 mg tablet 50 mg PO DAILY 12/23/20 12/23/20 Previous Rx's Medication Instructions Recorded Wheelchair (Manual) #1 ea 04/01/19 diaper,brief,adult,disposable #48 ea 06/30/19 miconazole nitrate 2 % topical 1 appln TOP BID #30 gm 11/29/19 cream niacin 500 mg tablet (Niacor) 2,500 mg PO HS #150 tab 03/17/20 finasteride 5 mg tablet 5 mg PO QAM #30 tab 03/31/20 blood sugar diagnostic (OneTouch #100 ea 04/10/20 Ultra Blue Test Strip) gemfibrozil 600 mg tablet 600 mg PO BID #180 tab 06/30/20 furosemide 40 mg tablet 40 mg PO DAILY #90 tab 08/14/20 polyethylene glycol 3350 17 17 g PO DAILY PRN #119 g 08/25/20 gram/dose oral powder (Miralax) lisinopril 2.5 mg tablet 2.5 mg PO QAM #90 tab 10/17/20 propranolol 120 mg 120 mg PO DAILY #30 cap 10/19/20 capsule,extended release 24 hr sennosides 8.6 mg-docusate sodium 1 tab PO BID #60 tab 10/19/20 50 mg tablet (Senna with Docusate Sodium) acetic acid 0.25 % irrigation 25 ml IR DIRECTED #1000 ml 11/07/20 solution miscellaneous medical supply 1 ea MISCELLANEOUS ONCE #1 ea 11/10/20 Results & Data (ED) Vital Signs Vital Signs - 24 hr 12/22/20 23:14 12/22/20 23:28 12/23/20 01:21 Temperature 36.7 C Temperature Source Oral Pulse Rate 79 Pulse Rate [Apical] 83 Respiratory Rate 22 20 Respiratory Effort / Characteristics Non-Labored Spontaneous Non-Labored Spontaneous Respiratory Depth Normal Normal Respiratory Pattern Regular Regular Blood Pressure 106/46 L Blood Pressure [Left Arm] 110/77 Blood Pressure Mean 66 Blood Pressure Mean [Left Arm] 88 Blood Pressure Position Lying Blood Pressure Position [Left Arm] Sitting Pulse Oximetry 99 98 99 Oxygen Delivery Method Room Air Room Air Room Air Sepsis Recent Fever Within 48 Hours No Sepsis New/Unexplained Change in Mental Status N/A Sepsis Action Taken by Nursing No Action Required 12/23/20 01:43 12/23/20 02:31 Temperature Temperature Source Pulse Rate 82 83 Pulse Rate [Apical] Respiratory Rate 18 18 Respiratory Effort / Characteristics Respiratory Depth Respiratory Pattern Blood Pressure 102/57 L 99/60 L Blood Pressure [Left Arm] Blood Pressure Mean 72 73 Blood Pressure Mean [Left Arm] Blood Pressure Position Blood Pressure Position [Left Arm] Pulse Oximetry 98 98 Oxygen Delivery Method Sepsis Recent Fever Within 48 Hours Sepsis New/Unexplained Change in Mental Status Sepsis Action Taken by Nursing Laboratory Data Result diagrams: 12/22/20 23:22 12/22/20 23:22 Lab Results 12/22/20 12/22/20 12/22/20 Range/Units 23:22 23:22 23:22 WBC 17.37 H (4.8-10.8) K/uL RBC 1.59 L (4.7-6.1) M/uL Hgb 5.5 L* (14.0-18.0) g/dL Hct 16.5 L* (42-52) % MCV 103.8 H (80-100) fL MCH 34.6 H (25-34) pg MCHC 33.3 (32-36) g/dL RDW Std Deviation 53.4 H (36.4-46.3) fL RDW Coeff of Renée 16.6 H (11.5-14.5) % Plt Count 380 (130-400) K/uL MPV 7.9 (7.4-10.4) fL Immature Gran % (Auto) 1.7 % Neut % (Auto) 83.4 % Lymph % (Auto) 8.0 % [place] % (Auto) 6.6 % Eos % (Auto) 0.2 % Baso % (Auto) 0.1 % Neut # (Auto) 14.50 H (1.4-6.5) K/uL Lymph # (Auto) 1.39 (1.2-3.4) K/uL [place] # (Auto) 1.15 H (0.11-0.59) K/uL Eos # (Auto) 0.03 (0-0.5) K/uL Baso # (Auto) 0.01 (0-0.2) K/uL Immature Gran # (Auto) 0.29 H (0.00-0.02) K/uL Absolute Nucleated RBC 0.09 H (0-0) K/uL Nucleated RBC % (auto) 0.5 % Basophilic Stippling 1+ PT 11.0 (9.0-12.0) Seconds INR 1.1 (0.9-1.1) APTT 20.6 L (21.0-31.0) Seconds PTT Ratio 0.8 Sodium 134 L (136-145) mmol/L Potassium 3.6 (3.5-5.1) mmol/L Chloride 99 (98-107) mmol/L Carbon Dioxide 25 (21-32) mmol/L Anion Gap 10.0 (3-11) BUN 67 H (7-18) mg/dl Creatinine 2.27 H (0.6-1.4) mg/dl Est Cr Clr Drug Dosing 32.0 ml/min Est GFR ( Amer) 33.4 ml/min Est GFR (Non-Af Amer) 28.8 ml/min BUN/Creatinine Ratio 29.3 H (10-20) Glucose 208 H (70-99) mg/dl Osmolality (280-300) mOsm/kg Lactate (0.4-2.0) mmol/L Calcium 8.8 (8.5-10.1) mg/dl Magnesium 2.3 (1.8-2.4) mg/dl Total Bilirubin 0.3 (0.2-1) mg/dl AST 15 (15-37) U/L ALT 17 (12-78) U/L Alkaline Phosphatase 53 (45-117) U/L Troponin I < 0.015 (0-0.045) ng/ml Total Protein 6.6 (6.4-8.2) gm/dl Albumin 3.3 L (3.4-5.0) gm/dl Globulin 3.3 (2.5-4.0) gm/dl Albumin/Globulin Ratio 1.0 (0.9-2) TSH 0.569 (0.300-4.500) uIu/ml Urine Color Urine Appearance (Clear) Urine pH (4.5-7.5) Ur Specific [place] (1.000-1.030) Urine Protein (Negative) Urine Glucose (UA) (Negative) Urine Ketones (Negative) Urine Blood (Negative) Urine Nitrite (Negative) Urine Bilirubin (Negative) Urine Urobilinogen (Negative) Ur Leukocyte Esterase (Negative) Urine WBC (Auto) (0-5) /hpf Urine RBC (Auto) (0-4) /hpf U Hyaline Cast (Auto) (0-5) /lpf U Epithel Cells (Auto) (0-5) /lpf Urine Bacteria (Auto) (Negative) Ur Renal Epithelial Cell Urine Yeast (None Prsent) Urine Osmolality (500-800) mOsm/kg Ur Random Sodium mmol/L COVID-19 Eval Order SARS-CoV-2 (PCR) (Negative) Blood Type Blood Type Recheck Antibody Screen Crossmatch 12/22/20 12/23/20 12/23/20 Range/Units 23:22 00:08 00:08 WBC (4.8-10.8) K/uL RBC (4.7-6.1) M/uL Hgb (14.0-18.0) g/dL Hct (42-52) % MCV (80-100) fL MCH (25-34) pg MCHC (32-36) g/dL RDW Std Deviation (36.4-46.3) fL RDW Coeff of Renée (11.5-14.5) % Plt Count (130-400) K/uL MPV (7.4-10.4) fL Immature Gran % (Auto) % Neut % (Auto) % Lymph % (Auto) % [place] % (Auto) % Eos % (Auto) % Baso % (Auto) % Neut # (Auto) (1.4-6.5) K/uL Lymph # (Auto) (1.2-3.4) K/uL [place] # (Auto) (0.11-0.59) K/uL Eos # (Auto) (0-0.5) K/uL Baso # (Auto) (0-0.2) K/uL Immature Gran # (Auto) (0.00-0.02) K/uL Absolute Nucleated RBC (0-0) K/uL Nucleated RBC % (auto) % Basophilic Stippling PT (9.0-12.0) Seconds INR (0.9-1.1) APTT (21.0-31.0) Seconds PTT Ratio Sodium (136-145) mmol/L Potassium (3.5-5.1) mmol/L Chloride (98-107) mmol/L Carbon Dioxide (21-32) mmol/L Anion Gap (3-11) BUN (7-18) mg/dl Creatinine (0.6-1.4) mg/dl Est Cr Clr Drug Dosing ml/min Est GFR ( Amer) ml/min Est GFR (Non-Af Amer) ml/min BUN/Creatinine Ratio (10-20) Glucose (70-99) mg/dl Osmolality 305 H (280-300) mOsm/kg Lactate (0.4-2.0) mmol/L Calcium (8.5-10.1) mg/dl Magnesium (1.8-2.4) mg/dl Total Bilirubin (0.2-1) mg/dl AST (15-37) U/L ALT (12-78) U/L Alkaline Phosphatase (45-117) U/L Troponin I (0-0.045) ng/ml Total Protein (6.4-8.2) gm/dl Albumin (3.4-5.0) gm/dl Globulin (2.5-4.0) gm/dl Albumin/Globulin Ratio (0.9-2) TSH (0.300-4.500) uIu/ml Urine Color Yellow Urine Appearance Clear (Clear) Urine pH 5.0 (4.5-7.5) Ur Specific [place] 1.015 (1.000-1.030) Urine Protein Negative (Negative) Urine Glucose (UA) Negative (Negative) Urine Ketones Trace H (Negative) Urine Blood Negative (Negative) Urine Nitrite Negative (Negative) Urine Bilirubin Negative (Negative) Urine Urobilinogen Negative (Negative) Ur Leukocyte Esterase 2+ H (Negative) Urine WBC (Auto) 10-30 H (0-5) /hpf Urine RBC (Auto) 0-4 (0-4) /hpf U Hyaline Cast (Auto) 5-10 H (0-5) /lpf U Epithel Cells (Auto) >30 H (0-5) /lpf Urine Bacteria (Auto) 1+ H (Negative) Ur Renal Epithelial Cell Not Reportable Urine Yeast Budding A (None Prsent) Urine Osmolality 363 L (500-800) mOsm/kg Ur Random Sodium mmol/L COVID-19 Eval Order SARS-CoV-2 (PCR) (Negative) Blood Type Blood Type Recheck Antibody Screen Crossmatch 12/23/20 12/23/20 12/23/20 Range/Units 00:08 01:26 01:26 WBC (4.8-10.8) K/uL RBC (4.7-6.1) M/uL Hgb (14.0-18.0) g/dL Hct (42-52) % MCV (80-100) fL MCH (25-34) pg MCHC (32-36) g/dL RDW Std Deviation (36.4-46.3) fL RDW Coeff of Renée (11.5-14.5) % Plt Count (130-400) K/uL MPV (7.4-10.4) fL Immature Gran % (Auto) % Neut % (Auto) % Lymph % (Auto) % [place] % (Auto) % Eos % (Auto) % Baso % (Auto) % Neut # (Auto) (1.4-6.5) K/uL Lymph # (Auto) (1.2-3.4) K/uL [place] # (Auto) (0.11-0.59) K/uL Eos # (Auto) (0-0.5) K/uL Baso # (Auto) (0-0.2) K/uL Immature Gran # (Auto) (0.00-0.02) K/uL Absolute Nucleated RBC (0-0) K/uL Nucleated RBC % (auto) % Basophilic Stippling PT (9.0-12.0) Seconds INR (0.9-1.1) APTT (21.0-31.0) Seconds PTT Ratio Sodium (136-145) mmol/L Potassium (3.5-5.1) mmol/L Chloride (98-107) mmol/L Carbon Dioxide (21-32) mmol/L Anion Gap (3-11) BUN (7-18) mg/dl Creatinine (0.6-1.4) mg/dl Est Cr Clr Drug Dosing ml/min Est GFR ( Amer) ml/min Est GFR (Non-Af Amer) ml/min BUN/Creatinine Ratio (10-20) Glucose (70-99) mg/dl Osmolality (280-300) mOsm/kg Lactate 1.2 (0.4-2.0) mmol/L Calcium (8.5-10.1) mg/dl Magnesium (1.8-2.4) mg/dl Total Bilirubin (0.2-1) mg/dl AST (15-37) U/L ALT (12-78) U/L Alkaline Phosphatase (45-117) U/L Troponin I (0-0.045) ng/ml Total Protein (6.4-8.2) gm/dl Albumin (3.4-5.0) gm/dl Globulin (2.5-4.0) gm/dl Albumin/Globulin Ratio (0.9-2) TSH (0.300-4.500) uIu/ml Urine Color Urine Appearance (Clear) Urine pH (4.5-7.5) Ur Specific [place] (1.000-1.030) Urine Protein (Negative) Urine Glucose (UA) (Negative) Urine Ketones (Negative) Urine Blood (Negative) Urine Nitrite (Negative) Urine Bilirubin (Negative) Urine Urobilinogen (Negative) Ur Leukocyte Esterase (Negative) Urine WBC (Auto) (0-5) /hpf Urine RBC (Auto) (0-4) /hpf U Hyaline Cast (Auto) (0-5) /lpf U Epithel Cells (Auto) (0-5) /lpf Urine Bacteria (Auto) (Negative) Ur Renal Epithelial Cell Urine Yeast (None Prsent) Urine Osmolality (500-800) mOsm/kg Ur Random Sodium 21 mmol/L COVID-19 Eval Order SARS-CoV-2 (PCR) (Negative) Blood Type O Positive Blood Type Recheck Antibody Screen NEGATIVE Crossmatch See Detail 12/23/20 12/23/20 12/23/20 Range/Units 02:09 02:09 02:25 WBC (4.8-10.8) K/uL RBC (4.7-6.1) M/uL Hgb (14.0-18.0) g/dL Hct (42-52) % MCV (80-100) fL MCH (25-34) pg MCHC (32-36) g/dL RDW Std Deviation (36.4-46.3) fL RDW Coeff of Renée (11.5-14.5) % Plt Count (130-400) K/uL MPV (7.4-10.4) fL Immature Gran % (Auto) % Neut % (Auto) % Lymph % (Auto) % [place] % (Auto) % Eos % (Auto) % Baso % (Auto) % Neut # (Auto) (1.4-6.5) K/uL Lymph # (Auto) (1.2-3.4) K/uL [place] # (Auto) (0.11-0.59) K/uL Eos # (Auto) (0-0.5) K/uL Baso # (Auto) (0-0.2) K/uL Immature Gran # (Auto) (0.00-0.02) K/uL Absolute Nucleated RBC (0-0) K/uL Nucleated RBC % (auto) % Basophilic Stippling PT (9.0-12.0) Seconds INR (0.9-1.1) APTT (21.0-31.0) Seconds PTT Ratio Sodium (136-145) mmol/L Potassium (3.5-5.1) mmol/L Chloride (98-107) mmol/L Carbon Dioxide (21-32) mmol/L Anion Gap (3-11) BUN (7-18) mg/dl Creatinine (0.6-1.4) mg/dl Est Cr Clr Drug Dosing ml/min Est GFR ( Amer) ml/min Est GFR (Non-Af Amer) ml/min BUN/Creatinine Ratio (10-20) Glucose (70-99) mg/dl Osmolality (280-300) mOsm/kg Lactate (0.4-2.0) mmol/L Calcium (8.5-10.1) mg/dl Magnesium (1.8-2.4) mg/dl Total Bilirubin (0.2-1) mg/dl AST (15-37) U/L ALT (12-78) U/L Alkaline Phosphatase (45-117) U/L Troponin I (0-0.045) ng/ml Total Protein (6.4-8.2) gm/dl Albumin (3.4-5.0) gm/dl Globulin (2.5-4.0) gm/dl Albumin/Globulin Ratio (0.9-2) TSH (0.300-4.500) uIu/ml Urine Color Urine Appearance (Clear) Urine pH (4.5-7.5) Ur Specific [place] (1.000-1.030) Urine Protein (Negative) Urine Glucose (UA) (Negative) Urine Ketones (Negative) Urine Blood (Negative) Urine Nitrite (Negative) Urine Bilirubin (Negative) Urine Urobilinogen (Negative) Ur Leukocyte Esterase (Negative) Urine WBC (Auto) (0-5) /hpf Urine RBC (Auto) (0-4) /hpf U Hyaline Cast (Auto) (0-5) /lpf U Epithel Cells (Auto) (0-5) /lpf Urine Bacteria (Auto) (Negative) Ur Renal Epithelial Cell Urine Yeast (None Prsent) Urine Osmolality (500-800) mOsm/kg Ur Random Sodium mmol/L COVID-19 Eval Order Covid19 at [facility] SARS-CoV-2 (PCR) NEGATIVE (Negative) Blood Type Blood Type Recheck O Positive Antibody Screen Crossmatch Administered Medications Insulin Aspart (Insulin Aspart 100 Units/Ml 3 Ml Pen) 0 units SC ACHS SARAH Stop: 01/22/21 04:29 Last Admin: 12/23/20 05:39 Dose: 3 units Documented by: [id number] Cosigned by: [id number] Insulin Glargine (Insulin Glargine Solostar 100 Units/Ml 3 Ml Pen) 20 units SC QAM SARAH Stop: 01/22/21 04:29 Last Admin: 12/23/20 05:37 Dose: 20 units Documented by: [id number] Cosigned by: [id number] Discontinued Medications Sodium Chloride (Nss 1000ml) 1,000 mls @ 999 mls/hr IV .[id number] ONE Stop: 12/23/20 01:19 Last Infusion: 12/23/20 01:32 Dose: 0 mls/hr Documented by: [id number] Admin: 12/23/20 00:31 Dose: 999 mls/hr Documented by: [id number] Ceftriaxone Sodium (Rocephin) 2,000 mg in 70 mls @ 140 mls/hr IV NOW STA Stop: 12/23/20 02:38 Last Infusion: 12/23/20 04:15 Dose: 0 mls/hr Documented by: [id number] Admin: 12/23/20 02:42 Dose: 140 mls/hr Documented by: [id number] Discharge Plan Visit Data Chief Complaint: Altered Mental Status Stated Complaint: CHANGE IN MENTAL STATUS ED Provider: Arden Forbes Discharge Problem: Acute anemia, Generalized weakness, Leukocytosis, Constipation, Acute renal failure, Infected pressure ulcer, Acute dehydration Patient Disposition: Admitted As Inpatient Discharge Instructions Interventions: ED Discharge Assessment Last Done: 12/23/20 04:20 Discharge Problem: Leukocytosis Qualifiers: Leukocytosis type: unspecified Qualified Code(s): D72.829 - Elevated white blood cell count, unspecified Constipation Qualifiers: Constipation type: slow transit constipation Qualified Code(s): K59.01 - Slow transit constipation Acute renal failure Qualifiers: Acute renal failure type: unspecified Qualified Code(s): N17.9 - Acute kidney failure, unspecified Infected pressure ulcer Qualifiers: Pressure injury stage: unspecified pressure injury stage Qualified Code(s): L89.90 - Pressure ulcer of unspecified site, unspecified stage
[2020-12-23 00:39] LABS: Hematocrit (blood only) 16.5 % (42-52); Hemoglobin 5.5 g/dL (14.0-18.0); Mean Corpuscular Hemoglobin 34.6 pg (25-34); Mean Corpuscular Hgb Conc 33.3 g/dL (32-36); Mean Corpuscular Volume 103.8 fL (80-100); Mean Platelet Volume 7.9 fL (7.4-10.4); Nucleated RBC # (auto) 0.09 K/uL (0-0); Nucleated RBC % (auto) 0.5 %; Platelet Count 380 K/uL (130-400); RDW Coefficient of Variation 16.6 % (11.5-14.5); RDW Standard Deviation 53.4 fL (36.4-46.3); Red Blood Count 1.59 M/uL (4.7-6.1); White Blood Count 17.37 K/uL (4.8-10.8)
[2020-12-23 00:44] LABS: Basophilic Stippling 1+; Basophils # (auto) 0.01 K/uL (0-0.2); Basophils % (auto) 0.1 %; Eosinophils # (auto) 0.03 K/uL (0-0.5); Eosinophils % (auto) 0.2 %; Immature Granulocytes # (auto) 0.29 K/uL (0.00-0.02); Immature Granulocytes % (auto) 1.7 %; Lymphocytes # (auto) 1.39 K/uL (1.2-3.4); Monocytes # (auto) 1.15 K/uL (0.11-0.59); Monocytes % (auto) 6.6 %; Neutrophils % (auto) 83.4 %
[2020-12-23] MEDS ORDERED: SODIUM CHLORIDE 0.9% 250 ML IV PRN (00:50)
[2020-12-23 01:29] LABS: Appearance Urine Clear (Clear); Bacteria Urine Automated 1+ (Negative); Bilirubin Urine Negative (Negative); Blood Urine Negative (Negative); Color Urine Yellow; Epithelial Cell Urine Auto >30 /lpf (0-5); Glucose Urine UA Negative (Negative); Ketones Urine Trace (Negative); Leukocyte Esterase Urine 2+ (Negative); Nitrite Urine Negative (Negative); Protein Urine Negative (Negative); RBC Urine Automated 0-4 /hpf (0-4); Specific Gravity Urine 1.015 (1.000-1.030); Urobilinogen Urine Negative (Negative)
[2020-12-23] MEDS ORDERED: cefTRIAXone SODIUM 2,000 MG/70 ML BAG IV STA (02:09)
--- NOTE | 2020-12-23 02:39 | History & Physical Report ---
Date of Service December 23, 2020 Assessment & Plan (1) Diabetic ulcer of right foot: Plan: Patient with a past medical history of diabetes, cerebral palsy, heart disease, hypertension, pneumonia, spina bifida, Parkinson's disease with chronic indwelling Hernandez catheter presents for evaluation of generalized weakness. Recently he has initiated treatment with doxycycline for cellulitis of his right lower extremity demonstrated to be pansensitive staph aureus. Patient presents for evaluation of generalized weakness. #Anemia Patient presenting with complaints of generalized fatigue and weakness, laboratory findings with a hemoglobin of 5.5, clinical history and physical exam findings without source for his acute anemia. Patient was given 2 units packed red blood cells in the emergency department, repeat hemoglobin and hematocrit pending. Patient will be admitted for further evaluation and work-up of his anemia. Differential is broad but to include anemia of chronic disease versus chronic kidney disease leading to bone marrow failure. GI loss less likely due to negative fecal occult, internal hemorrhage unlikely due to negative CT scans. -Follow-up H&H -Trend hemoglobin -Anemia labs pending -s/p 2 u prbc #Chronic indwelling catheter urinary tract infection present on admission Patient with chronic indwelling Hernandez catheter, and UA suspicious for infection on presentation. -Ceftriaxone -Urine cultures obtained and pending -Asymptomatic at present #Cellulitis of the right lower extremity Diagnosed in the outpatient setting, started on doxycycline, cultures demonstrating staph aureus. -Ceftriaxone -Daily CBC -Wound care consulted -Monitor for resolution #Constipation Significant stool burden noticed on admission CT will provide aggressive bowel regiment -MiraLAX twice daily -DC Dulcolax -Home regimen #Bilateral diabetic foot ulcers Longstanding history of, sees wound care as an outpatient. -Wound care consulted #Leukocytosis White blood cell count 17.37 on presentation thought to be secondary to above #Cerebral palsy History of #Hypertension -Holding lisinopril secondary to VIKY -Holding furosemide Continued propanolol 120 mg daily #VIKY on CKD Creatinine on presentation 2.27, baseline appears to be 0.8. Suspect secondary to poor p.o. intake, and the above. -Gentle fluid hydration with LR x1 bags -Avoid nephrotoxins -Trend BMP #BPH Continue finasteride #Diabetes Holding home Metformin -Glycemic consult placed appreciate assistance #Chronic pain Continue tramadol FENa: Heart healthy diet Code Status: DNR/DNI DVT PPX: Holding in the setting of anemia PT/OT: Ordered Case Management: Consulted Dispo: MedSurg telemetry Alexander Thomson MD PGY 3, FCM This chart was completed utilizing [employer] dictation voice recognition software. Grammatical errors, random word insertions, pronoun errors, and in complete sentences are an occasional consequence of the system. Any questions or concerns about the content, text, or information contained within the body of this dictation should be addressed directly to the physician for clarification. (2) Diabetic ulcer of left foot: (3) Indwelling Hernandez catheter present: (4) Cerebral palsy: (5) UTI (urinary tract infection): (6) Diabetes: (7) Anemia: (8) Hyperlipidemia: (9) Constipation: (10) Cellulitis of right leg: History of Present Illness Primary Care Provider: Mitchel Chowdhury MD *Patient is a poor historian* Patient with a past medical history of diabetes, cerebral palsy, heart disease, hypertension, pneumonia, spina bifida, Parkinson's disease with chronic indwelling Hernandez catheter presents for evaluation of generalized weakness. Recently he has initiated treatment with doxycycline for cellulitis of his right lower extremity demonstrated to be pansensitive staph aureus. Patient presents for evaluation of generalized weakness. He denies any recent illnesses, denying any history of fevers, chills, nausea, vomiting, chest pressure, chest pain, shortness of breath. He endorses a history of relative weakness. He states he has not been eating much secondary to the weakness. Per report he is fallen several times out of bed and is wheelchair denying any injuries, headache or neck pain. He was seen at the wound clinic today and noted wounds on his legs worsening necessitating antibiotics. He presented to the emergency department this night due to worsening weakness. On presentation in the emergency department routine labs were obtained CBC demonstrating white count of 17.37, hemoglobin of 5.5,Platelet count of 380, coagulation labs within normal limits, Chem-7 demonstrating a sodium of 134, creatinine of 2.27, baseline appears to be around 1, glucose of 208, urinalysis demonstrating bacteria, 10-30 WBCs, budding yeast present, COVID-[address] abdomen pelvis demonstrating marked constipation, potential cholelithiasis within the gallbladder wall calcifications. Head CT is negative, fecal occult blood is negative. blood and urine cultures obtained and pending. hospital service was consulted for admission. Allergies Allergy/AdvReac Type Severity Reaction Status Date / Time sulfamethoxazole AdvReac Mild Nausea Verified 12/23/20 18:50 [From Bactrim] trimethoprim [From Bactrim] AdvReac Mild Nausea Verified 12/23/20 18:50 Home Medications Medication Instructions Recorded Confirmed Type aspirin 81 mg tablet,delayed 81 mg PO QAM 04/28/18 12/23/20 History release (Aspirin Low Dose) blood-glucose meter (OneTouch #1 ea 11/05/18 12/11/20 History Verio Meter) cholecalciferol (vitamin D3) 25 3,000 units PO QAM tab 11/05/18 12/23/20 History mcg (1,000 unit) tablet magnesium oxide 400 mg (241.3 mg 400 mg PO QAM 11/05/18 12/23/20 History magnesium) tablet Wheelchair (Manual) #1 ea 04/01/19 12/11/20 Rx diaper,brief,adult,disposable #48 ea 06/30/19 12/11/20 Rx miconazole nitrate 2 % topical 1 appln TOP BID #30 gm 11/29/19 12/22/20 Rx cream metformin 1,000 mg tablet 1,000 mg PO BID 02/10/20 12/23/20 History niacin 500 mg tablet (Niacor) 2,500 mg PO HS #150 tab 03/17/20 12/23/20 Rx finasteride 5 mg tablet 5 mg PO QAM #30 tab 03/31/20 12/23/20 Rx blood sugar diagnostic (OneTouch #100 ea 04/10/20 12/11/20 Rx Ultra Blue Test Strip) gemfibrozil 600 mg tablet 600 mg PO BID #180 tab 06/30/20 12/23/20 Rx furosemide 40 mg tablet 40 mg PO DAILY #90 tab 08/14/20 12/23/20 Rx polyethylene glycol 3350 17 17 g PO DAILY PRN #119 g 08/25/20 12/23/20 Rx gram/dose oral powder (Miralax) lisinopril 2.5 mg tablet 2.5 mg PO QAM #90 tab 10/17/20 12/23/20 Rx propranolol 120 mg 120 mg PO DAILY #30 cap 10/19/20 12/23/20 Rx capsule,extended release 24 hr sennosides 8.6 mg-docusate sodium 1 tab PO BID #60 tab 10/19/20 12/22/20 Rx 50 mg tablet (Senna with Docusate Sodium) acetic acid 0.25 % irrigation 25 ml IR DIRECTED #1000 ml 11/07/20 12/22/20 Rx solution miscellaneous medical supply 1 ea MISCELLANEOUS ONCE #1 ea 11/10/20 12/11/20 Rx docusate sodium 100 mg tablet 100 mg PO BID 12/23/20 12/23/20 History doxycycline hyclate 100 mg capsule 100 mg PO BID 12/23/20 12/23/20 History potassium chloride 20 mEq 20 meq PO DAILY 12/23/20 12/23/20 History tablet,extended release tramadol 50 mg tablet 50 mg PO DAILY 12/23/20 12/23/20 History Past Med/Surg History Medical History (Updated 12/23/20 @ 19:21 by Juana Pisano MD) Cellulitis of right lower leg Cerebral palsy Diabetes Heart disease HTN (hypertension) Metabolic encephalopathy Pneumonia Spina bifida Traumatic wound UTI (urinary tract infection) due to urinary indwelling catheter Wound of right foot Surgical History No pertinent past surgical history Family History Mother Peripheral vascular disease Other Cancer Diabetes Heart disease Hypertension Denies family history of Ovarian cancer Prostate cancer Myocardial infarction Breast cancer Colorectal cancer Social History Smoking Status: Former smoker Tobacco Type: Cigarettes Second Hand Exposure: No; Hx Alcohol Use: No Hx Substance Use: No Preferred Language: [place]an Communication Ability: Effective Visual Impairment: No Limitations Hearing Ability: Use of Hearing Aid Director Title Required: No Beliefs That Will Affect Care: None marital status: Single Current Living Situation: Alone Current Living Situation Comment: has caregivers from [phone] and 2 hours in the evening current occupational status: disabled Feels Safe at Home: Yes caffeine: Yes during the past year weight has: remained stable Dental Care, Regularly: No Physical Activity Frequency: Does not Exercise Seatbelt Use: never Assistive Devices: Wheelchair Review of Systems Review of Systems: All systems reviewed & are unremarkable except as noted in HPI & below Physical Exam Physical Exam: General: No acute distress, somewhat pale HEENT: Normocephalic atraumatic Neck: No significant lymphadenopathy, trachea midline, normal to visual inspection Cardiac: Regular rate and rhythm, normal S1, normal S2, I did not appreciated any significant murmurs rubs or gallops, I did not appreciate any significant pedal edema, No calf tenderness, capillary refill is less than 3 seconds Respiratory: Clear to auscultation bilaterally with symmetrical chest rise, I did not appreciate any significant wheezes, rales, rhonchi, no increased work of breathing GI: Normal bowel sounds, soft, nontender in all 4 quadrants, nondistended MSK: No sensory or motor changes, moves all extremities without issue, extremities are warm and well-perfused Right lower extremity bandaged Left foot first digit erythematous Tremor present Skin: [place], clean, dry, intact. -No signs of bleeding Neuro: Alert and oriented x4 Psych: Calm, cooperative, logical thought process Results & Data Results & Data ([facility]) Vital Signs (Past 12 Hours) Vital Signs Temp Pulse Pulse Resp BP BP Pulse Ox 12/23/20 01:21 83 20 110/77 99 12/22/20 23:28 98 12/22/20 23:14 36.7 C 79 22 106/46 L 99 Laboratory Results 12/23/20 12/23/20 12/23/20 Range/Units 02:25 02:09 02:09 WBC (4.8-10.8) K/uL RBC (4.7-6.1) M/uL Hgb (14.0-18.0) g/dL Hct (42-52) % MCV (80-100) fL MCH (25-34) pg MCHC (32-36) g/dL RDW Std Deviation (36.4-46.3) fL RDW Coeff of Renée (11.5-14.5) % Plt Count (130-400) K/uL MPV (7.4-10.4) fL Immature Gran % (Auto) % Neut % (Auto) % Lymph % (Auto) % [place] % (Auto) % Eos % (Auto) % Baso % (Auto) % Neut # (Auto) (1.4-6.5) K/uL Lymph # (Auto) (1.2-3.4) K/uL [place] # (Auto) (0.11-0.59) K/uL Eos # (Auto) (0-0.5) K/uL Baso # (Auto) (0-0.2) K/uL Immature Gran # (Auto) (0.00-0.02) K/uL Absolute Nucleated RBC (0-0) K/uL Nucleated RBC % (auto) % Basophilic Stippling PT (9.0-12.0) Seconds INR (0.9-1.1) APTT (21.0-31.0) Seconds PTT Ratio Sodium (136-145) mmol/L Potassium (3.5-5.1) mmol/L Chloride (98-107) mmol/L Carbon Dioxide (21-32) mmol/L Anion Gap (3-11) BUN (7-18) mg/dl Creatinine (0.6-1.4) mg/dl Est Cr Clr Drug Dosing ml/min Est GFR ( Amer) ml/min Est GFR (Non-Af Amer) ml/min BUN/Creatinine Ratio (10-20) Glucose (70-99) mg/dl Osmolality (280-300) mOsm/kg Lactate (0.4-2.0) mmol/L Calcium (8.5-10.1) mg/dl Magnesium (1.8-2.4) mg/dl Total Bilirubin (0.2-1) mg/dl AST (15-37) U/L ALT (12-78) U/L Alkaline Phosphatase (45-117) U/L Troponin I (0-0.045) ng/ml Total Protein (6.4-8.2) gm/dl Albumin (3.4-5.0) gm/dl Globulin (2.5-4.0) gm/dl Albumin/Globulin Ratio (0.9-2) TSH (0.300-4.500) uIu/ml Urine Color Urine Appearance (Clear) Urine pH (4.5-7.5) Ur Specific [place] (1.000-1.030) Urine Protein (Negative) Urine Glucose (UA) (Negative) Urine Ketones (Negative) Urine Blood (Negative) Urine Nitrite (Negative) Urine Bilirubin (Negative) Urine Urobilinogen (Negative) Ur Leukocyte Esterase (Negative) Urine WBC (Auto) (0-5) /hpf Urine RBC (Auto) (0-4) /hpf U Hyaline Cast (Auto) (0-5) /lpf U Epithel Cells (Auto) (0-5) /lpf Urine Bacteria (Auto) (Negative) Ur Renal Epithelial Cell Urine Yeast (None Prsent) Urine Osmolality (500-800) mOsm/kg Ur Random Sodium mmol/L COVID-19 Eval Order Covid19 at [facility] SARS-CoV-2 (PCR) Pending Blood Type Blood Type Recheck O Positive Antibody Screen Crossmatch 12/23/20 12/23/20 12/23/20 Range/Units 01:26 01:26 00:08 WBC (4.8-10.8) K/uL RBC (4.7-6.1) M/uL Hgb (14.0-18.0) g/dL Hct (42-52) % MCV (80-100) fL MCH (25-34) pg MCHC (32-36) g/dL RDW Std Deviation (36.4-46.3) fL RDW Coeff of Renée (11.5-14.5) % Plt Count (130-400) K/uL MPV (7.4-10.4) fL Immature Gran % (Auto) % Neut % (Auto) % Lymph % (Auto) % [place] % (Auto) % Eos % (Auto) % Baso % (Auto) % Neut # (Auto) (1.4-6.5) K/uL Lymph # (Auto) (1.2-3.4) K/uL [place] # (Auto) (0.11-0.59) K/uL Eos # (Auto) (0-0.5) K/uL Baso # (Auto) (0-0.2) K/uL Immature Gran # (Auto) (0.00-0.02) K/uL Absolute Nucleated RBC (0-0) K/uL Nucleated RBC % (auto) % Basophilic Stippling PT (9.0-12.0) Seconds INR (0.9-1.1) APTT (21.0-31.0) Seconds PTT Ratio Sodium (136-145) mmol/L Potassium (3.5-5.1) mmol/L Chloride (98-107) mmol/L Carbon Dioxide (21-32) mmol/L Anion Gap (3-11) BUN (7-18) mg/dl Creatinine (0.6-1.4) mg/dl Est Cr Clr Drug Dosing ml/min Est GFR ( Amer) ml/min Est GFR (Non-Af Amer) ml/min BUN/Creatinine Ratio (10-20) Glucose (70-99) mg/dl Osmolality (280-300) mOsm/kg Lactate 1.2 (0.4-2.0) mmol/L Calcium (8.5-10.1) mg/dl Magnesium (1.8-2.4) mg/dl Total Bilirubin (0.2-1) mg/dl AST (15-37) U/L ALT (12-78) U/L Alkaline Phosphatase (45-117) U/L Troponin I (0-0.045) ng/ml Total Protein (6.4-8.2) gm/dl Albumin (3.4-5.0) gm/dl Globulin (2.5-4.0) gm/dl Albumin/Globulin Ratio (0.9-2) TSH (0.300-4.500) uIu/ml Urine Color Urine Appearance (Clear) Urine pH (4.5-7.5) Ur Specific [place] (1.000-1.030) Urine Protein (Negative) Urine Glucose (UA) (Negative) Urine Ketones (Negative) Urine Blood (Negative) Urine Nitrite (Negative) Urine Bilirubin (Negative) Urine Urobilinogen (Negative) Ur Leukocyte Esterase (Negative) Urine WBC (Auto) (0-5) /hpf Urine RBC (Auto) (0-4) /hpf U Hyaline Cast (Auto) (0-5) /lpf U Epithel Cells (Auto) (0-5) /lpf Urine Bacteria (Auto) (Negative) Ur Renal Epithelial Cell Urine Yeast (None Prsent) Urine Osmolality (500-800) mOsm/kg Ur Random Sodium 21 mmol/L COVID-19 Eval Order SARS-CoV-2 (PCR) Blood Type O Positive Blood Type Recheck Antibody Screen NEGATIVE Crossmatch See Detail 12/23/20 12/23/20 12/22/20 Range/Units 00:08 00:08 23:22 WBC (4.8-10.8) K/uL RBC (4.7-6.1) M/uL Hgb (14.0-18.0) g/dL Hct (42-52) % MCV (80-100) fL MCH (25-34) pg MCHC (32-36) g/dL RDW Std Deviation (36.4-46.3) fL RDW Coeff of Renée (11.5-14.5) % Plt Count (130-400) K/uL MPV (7.4-10.4) fL Immature Gran % (Auto) % Neut % (Auto) % Lymph % (Auto) % [place] % (Auto) % Eos % (Auto) % Baso % (Auto) % Neut # (Auto) (1.4-6.5) K/uL Lymph # (Auto) (1.2-3.4) K/uL [place] # (Auto) (0.11-0.59) K/uL Eos # (Auto) (0-0.5) K/uL Baso # (Auto) (0-0.2) K/uL Immature Gran # (Auto) (0.00-0.02) K/uL Absolute Nucleated RBC (0-0) K/uL Nucleated RBC % (auto) % Basophilic Stippling PT (9.0-12.0) Seconds INR (0.9-1.1) APTT (21.0-31.0) Seconds PTT Ratio Sodium (136-145) mmol/L Potassium (3.5-5.1) mmol/L Chloride (98-107) mmol/L Carbon Dioxide (21-32) mmol/L Anion Gap (3-11) BUN (7-18) mg/dl Creatinine (0.6-1.4) mg/dl Est Cr Clr Drug Dosing ml/min Est GFR ( Amer) ml/min Est GFR (Non-Af Amer) ml/min BUN/Creatinine Ratio (10-20) Glucose (70-99) mg/dl Osmolality 305 H (280-300) mOsm/kg Lactate (0.4-2.0) mmol/L Calcium (8.5-10.1) mg/dl Magnesium (1.8-2.4) mg/dl Total Bilirubin (0.2-1) mg/dl AST (15-37) U/L ALT (12-78) U/L Alkaline Phosphatase (45-117) U/L Troponin I (0-0.045) ng/ml Total Protein (6.4-8.2) gm/dl Albumin (3.4-5.0) gm/dl Globulin (2.5-4.0) gm/dl Albumin/Globulin Ratio (0.9-2) TSH (0.300-4.500) uIu/ml Urine Color Yellow Urine Appearance Clear (Clear) Urine pH 5.0 (4.5-7.5) Ur Specific [place] 1.015 (1.000-1.030) Urine Protein Negative (Negative) Urine Glucose (UA) Negative (Negative) Urine Ketones Trace H (Negative) Urine Blood Negative (Negative) Urine Nitrite Negative (Negative) Urine Bilirubin Negative (Negative) Urine Urobilinogen Negative (Negative) Ur Leukocyte Esterase 2+ H (Negative) Urine WBC (Auto) 10-30 H (0-5) /hpf Urine RBC (Auto) 0-4 (0-4) /hpf U Hyaline Cast (Auto) 5-10 H (0-5) /lpf U Epithel Cells (Auto) >30 H (0-5) /lpf Urine Bacteria (Auto) 1+ H (Negative) Ur Renal Epithelial Cell Not Reportable Urine Yeast Budding A (None Prsent) Urine Osmolality 363 L (500-800) mOsm/kg Ur Random Sodium mmol/L COVID-19 Eval Order SARS-CoV-2 (PCR) Blood Type Blood Type Recheck Antibody Screen Crossmatch 12/22/20 12/22/20 12/22/20 Range/Units 23:22 23:22 23:22 WBC 17.37 H (4.8-10.8) K/uL RBC 1.59 L (4.7-6.1) M/uL Hgb 5.5 L* (14.0-18.0) g/dL Hct 16.5 L* (42-52) % MCV 103.8 H (80-100) fL MCH 34.6 H (25-34) pg MCHC 33.3 (32-36) g/dL RDW Std Deviation 53.4 H (36.4-46.3) fL RDW Coeff of Renée 16.6 H (11.5-14.5) % Plt Count 380 (130-400) K/uL MPV 7.9 (7.4-10.4) fL Immature Gran % (Auto) 1.7 % Neut % (Auto) 83.4 % Lymph % (Auto) 8.0 % [place] % (Auto) 6.6 % Eos % (Auto) 0.2 % Baso % (Auto) 0.1 % Neut # (Auto) 14.50 H (1.4-6.5) K/uL Lymph # (Auto) 1.39 (1.2-3.4) K/uL [place] # (Auto) 1.15 H (0.11-0.59) K/uL Eos # (Auto) 0.03 (0-0.5) K/uL Baso # (Auto) 0.01 (0-0.2) K/uL Immature Gran # (Auto) 0.29 H (0.00-0.02) K/uL Absolute Nucleated RBC 0.09 H (0-0) K/uL Nucleated RBC % (auto) 0.5 % Basophilic Stippling 1+ PT 11.0 (9.0-12.0) Seconds INR 1.1 (0.9-1.1) APTT 20.6 L (21.0-31.0) Seconds PTT Ratio 0.8 Sodium 134 L (136-145) mmol/L Potassium 3.6 (3.5-5.1) mmol/L Chloride 99 (98-107) mmol/L Carbon Dioxide 25 (21-32) mmol/L Anion Gap 10.0 (3-11) BUN 67 H (7-18) mg/dl Creatinine 2.27 H (0.6-1.4) mg/dl Est Cr Clr Drug Dosing 32.0 ml/min Est GFR ( Amer) 33.4 ml/min Est GFR (Non-Af Amer) 28.8 ml/min BUN/Creatinine Ratio 29.3 H (10-20) Glucose 208 H (70-99) mg/dl Osmolality (280-300) mOsm/kg Lactate (0.4-2.0) mmol/L Calcium 8.8 (8.5-10.1) mg/dl Magnesium 2.3 (1.8-2.4) mg/dl Total Bilirubin 0.3 (0.2-1) mg/dl AST 15 (15-37) U/L ALT 17 (12-78) U/L Alkaline Phosphatase 53 (45-117) U/L Troponin I < 0.015 (0-0.045) ng/ml Total Protein 6.6 (6.4-8.2) gm/dl Albumin 3.3 L (3.4-5.0) gm/dl Globulin 3.3 (2.5-4.0) gm/dl Albumin/Globulin Ratio 1.0 (0.9-2) TSH 0.569 (0.300-4.500) uIu/ml Urine Color Urine Appearance (Clear) Urine pH (4.5-7.5) Ur Specific [place] (1.000-1.030) Urine Protein (Negative) Urine Glucose (UA) (Negative) Urine Ketones (Negative) Urine Blood (Negative) Urine Nitrite (Negative) Urine Bilirubin (Negative) Urine Urobilinogen (Negative) Ur Leukocyte Esterase (Negative) Urine WBC (Auto) (0-5) /hpf Urine RBC (Auto) (0-4) /hpf U Hyaline Cast (Auto) (0-5) /lpf U Epithel Cells (Auto) (0-5) /lpf Urine Bacteria (Auto) (Negative) Ur Renal Epithelial Cell Urine Yeast (None Prsent) Urine Osmolality (500-800) mOsm/kg Ur Random Sodium mmol/L COVID-19 Eval Order SARS-CoV-2 (PCR) Blood Type Blood Type Recheck Antibody Screen Crossmatch Code Status & VTE Plan Code Status full VTE Prophylaxis Plan VTE Prophylaxis will be ordered: Yes Supervising Physician Co-Signing Physician Notes Attending addendum: I have physically seen this patient, have supervised the medical residents activities, and agree with the H&P unless as otherwise noted. Assessment and Plan: Symptomatic anemia- Hemoglobin 5.5 upon admission NPO except essential medications To receive 2 units PRBCs from the ED H&H every 6 hours Ceftriaxone 1 g IV daily Hemoccult stool testing CT abdomen pelvis without retroperitoneal bleed Consult gastroenterology Chronic indwelling Hernandez catheter related UTI- Continue ceftriaxone IV Follow urine culture and sensitivities Remaining orders and notations as noted. Resident Activity Tracking Resident Involvement: Resident Care Provided Care Provided: Adult Hospital Medicine (1) UTI (urinary tract infection) Encounter type: initial encounter Indwelling urinary catheter type: indwelling urethral catheter Urinary tract infection type: catheter-associated UTI Qualified Code(s): T83.511A - Infection and inflammatory reaction due to indwelling urethral catheter, initial encounter; N39.0 - Urinary tract infection, site not specified (2) Diabetes Diabetes mellitus complication detail: with unspecified neuropathy Diabetes mellitus complication status: with neurologic complications Diabetes mellitus watermaster insulin use: without residential use Diabetes mellitus type: type 2 Qualified Code(s): E11.40 - Type 2 diabetes mellitus with diabetic neuropathy, unspecified (3) Anemia Anemia type: unspecified type Qualified Code(s): D64.9 - Anemia, unspecified (4) Cerebral palsy Cerebral palsy type: unspecified type Qualified Code(s): G80.9 - Cerebral palsy, unspecified (5) Hyperlipidemia Hyperlipidemia type: mixed hyperlipidemia Qualified Code(s): E78.2 - Mixed hyperlipidemia
[2020-12-23] MEDS ORDERED: PHARMACY GLYCEMIC MGMT CONSULT STA (03:11)
[2020-12-23] MEDS ORDERED: POLYETHYLENE (MIRALAX) 17 GM PACK PO PRN (03:13)
[2020-12-23] MEDS ORDERED: bisacodyL 10 MG SUPP PR PRN (03:14)
[2020-12-23] MEDS ORDERED: MAGNESIUM HYDROXIDE SUSP 30 ML UDC PO PRN (03:14)
[2020-12-23] MEDS ORDERED: LACTATED RINGER'S 1,000 ML IV SCH (03:15)
[2020-12-23] MEDS ORDERED: PHARMACY GLYCEMIC MGMT CONSULT PRN (04:22)
[2020-12-23] MEDS ORDERED: CARBOHYDRATES FOR HYPOGLYCEMIA PO PRN (04:30)
[2020-12-23] MEDS ORDERED: GLUCAGON FOR INJ 1 MG VIAL IM PRN (04:30)
[2020-12-23] MEDS ORDERED: DEXTROSE 50% 50 ML SYRINGE IV PRN (04:30)
[2020-12-23] MEDS ORDERED: GLUCOSE 40% GEL 15 GM TUBE PO PRN (04:30)
[2020-12-23] MEDS ORDERED: GLUCOSE 10 TABS/TUBE PO PRN (04:30)
[2020-12-23] MEDS: INSULIN GLARGINE SOLOSTAR 100 UNITS/ML 3 ML PEN SC SCH (05:37)
[2020-12-23] MEDS: INSULIN ASPART 100 UNITS/ML 3 ML PEN SC SCH ×5 (05:39→20:31)
--- NOTE | 2020-12-23 06:59 | CT Scan Report ---
HEAD CT NONCONTRAST CT DOSE: HISTORY: fall, weakness TECHNIQUE: Multiaxial CT images of the head were performed without the use of intravenous contrast. A utomated exposure control was utilized for this study. A dose lowering technique was utilized adheri ng to the principles of ALARA. Comparison: Head CT 04/12/2014. Findings: Opacified left mastoid air cells, unchanged. The right mastoid air cells and paranasal sinu ses are clear. Mild periventricular white matter hyperdensity remains unchanged. The calvarium and sk ull base are intact. The ventricles and sulci are within normal limits. There is no mass, hematoma, m idline shift, or acute infarct. Impression: No significant change compared to the prior study. No acute intracranial abnormality. ACT 112: Negative or not required by law. Electronically signed by: Rd Ty M.D. 12/23/2020 6:58 AM
--- NOTE | 2020-12-23 07:41 | CT Scan Report ---
ABDOMEN AND PELVIS CT WITHOUT CONTRAST CT DOSE: 1427.35 mGy.cm HISTORY: fall, weak, renal failure, abdominal discomfort TECHNIQUE: Multiaxial CT images of the abdomen and pelvis were performed without contrast. A dose lo wering technique was utilized adhering to the principles of ALARA. COMPARISON STUDY: Abdomen and pelvis CT 04/20/2016. FINDINGS: The lung bases are essentially clear. The heart is mildly enlarged. No pneumoperitoneum. No pneumatosis. Degenerative changes within the hips and spine. No fractures within the visualized osse ous structures. There is mild thickening at the second portion of the duodenum with mild adjacent fat stranding. This consistent with a nonspecific duodenitis and could represent peptic ulcer disease. E ndoscopy recommended to exclude the less likely possibility of an underlying lesion. There is a supra pubic catheter within the bladder. Bladder wall thickening is likely chronic. Distended mid to distal sigmoid colon and rectum containing a large amount of stool. The sigmoid colon of the right lower qu adrant measures up to 11.6 cm in diameter. There is moderate well-formed stool seen throughout the re maining colon. Cholelithiasis. The gallbladder is decompressed. The unenhanced liver, spleen, adrenal glands, and pancreas are unremarkable. No renal stones or hydronephrosis. Right renal hypodense lesi on measures 1.5 cm the lower pole. This is incompletely characterized on this noncontrast study. A fe w additional subcentimeter hypodense lesions are also too small to characterize. No retroperitoneal l ymphadenopathy. There is a left retroaortic renal vein. IMPRESSION: 1. Distended mid to distal sigmoid colon and rectum containing a large amount of stool. The sigmoid c olon within the right lower quadrant measures up to 11.6 cm in diameter. There is a moderate amount o f well-formed stool seen throughout the remaining colon. 2. There is mild thickening at the second portion of the duodenum with mild adjacent fat stranding. T his consistent with a nonspecific duodenitis and could represent peptic ulcer disease. Endoscopy anabell mmended to exclude the less likely possibility of an underlying lesion. 3. Cholelithiasis. 4. Additional findings as described above. ACT 112: Negative or not required by law. Electronically signed by: Rd Ty M.D. 12/23/2020 7:39 AM
--- NOTE | 2020-12-23 08:16 | XRay Report ---
XR chest 1V portable HISTORY: Altered mental status. COMPARISON: Chest 01/05/2019. FINDINGS: There are low lung volumes. Slightly rotated study. The heart is borderline enlarged. No fo rito lung consolidations to suggest pneumonia. No evidence for pulmonary edema. No pleural effusions. No pneumothorax. IMPRESSION: No acute process. ACT 112: Negative or not required by law. Electronically signed by: Rd Ty M.D. 12/23/2020 8:14 AM
[2020-12-23] MEDS ORDERED: POTASSIUM CHLORIDE CRTAB 20 MEQ TABCR PO SCH (09:00)
[2020-12-23] MEDS ORDERED: ASPIRIN 81 MG ECTAB PO SCH (09:00)
[2020-12-23] MEDS: PANTOprazole 40 MG in SYRINGE 0 ML IV SCH ×2 (09:29→20:28)
[2020-12-23] MEDS: gemfibroziL 600 MG TAB PO SCH ×2 (09:30→20:28)
[2020-12-23] MEDS: FINASTERIDE 5 MG TAB PO SCH (09:30)
[2020-12-23] MEDS: PROPRANOLOL HCL 60 MG LA CAP PO SCH (09:30)
[2020-12-23] MEDS: DOCUSATE SODIUM/SENNA 50/8.6MG TAB PO SCH ×2 (09:30→20:28)
[2020-12-23] MEDS: CHOLECALCIFEROL 1,000 UNITS 25 MCG TAB PO SCH (09:30)
[2020-12-23] MEDS: MAGNESIUM OXIDE 400 MG TAB PO SCH (09:30)
[2020-12-23] MEDS: DOCUSATE SODIUM 100 MG CAP PO SCH ×2 (09:30→20:29)
[2020-12-23] MEDS: POLYETHYLENE (MIRALAX) 17 GM PACK PO SCH ×2 (09:31→20:31)
[2020-12-23] MEDS: traMADol HCL 50 MG TABLET PO SCH (09:33)
[2020-12-23 10:09] LABS: Basophils # (auto) 0.01 K/uL (0-0.2); Basophils % (auto) 0.1 %; Eosinophils # (auto) 0.02 K/uL (0-0.5); Eosinophils % (auto) 0.2 %; Hematocrit (blood only) 23.7 % (42-52); Immature Granulocytes # (auto) 0.17 K/uL (0.00-0.02); Immature Granulocytes % (auto) 1.3 %; Lymphocytes # (auto) 0.96 K/uL (1.2-3.4); Lymphocytes % (auto) 7.3 %; Mean Corpuscular Hemoglobin 33.6 pg (25-34); Mean Corpuscular Hgb Conc 33.8 g/dL (32-36); Mean Corpuscular Volume 99.6 fL (80-100); Mean Platelet Volume 7.8 fL (7.4-10.4); Monocytes % (auto) 5.3 %; Neutrophils # (auto) 11.25 K/uL (1.4-6.5); Neutrophils % (auto) 85.8 %; Nucleated RBC # (auto) 0.05 K/uL (0-0); Nucleated RBC % (auto) 0.4 %; Platelet Count 326 K/uL (130-400); RDW Coefficient of Variation 15.9 % (11.5-14.5); RDW Standard Deviation 51.3 fL (36.4-46.3); Red Blood Count 2.38 M/uL (4.7-6.1); Reticulocyte % 9.6 % (0.5-2.0); Reticulocytes # 0.23 10^6/uL (0.02-0.10); White Blood Count 13.11 K/uL (4.8-10.8)
--- NOTE | 2020-12-23 10:30 | Hospitalist Progress Note ---
Date of Service December 23, 2020 Assessment & Plan (1) Anemia: Plan: Patient presenting with complaints of generalized fatigue and weakness, laboratory findings with a hemoglobin of 5.5 Hemoglobin was 11.2 on 12/11 and then dropped down to 5.5 here He is not had any bloody bowel movements that he knows of, however he has chronic colonic distention and a very large fecal ball palpable. CT abdomen/pelvis also was significant fecal load, no retroperitoneal bleed. It is possible that he is bleeding into his gut but it has not come out yet due to his chronic neurogenic bowel. Now status post 2 units PRBCs and repeat hemoglobin serially today was 8.0, 7.7. He is hemodynamically stable Follow CBC in the morning MCV is elevated, iron studies normal, B12 and folate normal This is most likely acute blood loss anemia, GI source despite being heme- negative in the ER. He did take doxycycline recently which may have caused the duodenitis and bleeding Transfuse if hemoglobin drops less than 7.5 or becomes hemodynamically unstable Consult GI-plan for EGD on Friday or sooner if has gross bleeding -Start IV Protonix 40 mg IV twice daily for duodenitis -Discontinue aspirin -Okay for clear liquid diet -Check H. pylori stool antigen -Check fecal occult blood (2) Constipation: Plan: severe, chronic colon distension Continue MiraLAX twice daily and GI recommends bowel prep with MiraLAX for tonight Continue bisacodyl suppository once daily Continue senna/docusate twice daily (3) Indwelling Hernandez catheter present: Plan: With a history of neurogenic bladder secondary to cerebral palsy Also noted to have BPH Continue finasteride (4) Cerebral palsy: Plan: Noted Supportive care, does not walk and uses wheelchair PT/OT consults (5) UTI (urinary tract infection): Plan: It is unclear if he has a true UTI as he has a chronic indwelling Hernandez catheter, however he did have a leukocytosis Leukocytosis may be reactive secondary to severe anemia Chronic indwelling catheter urinary tract infection present on admission Patient with chronic indwelling Hernandez catheter, and UA suspicious for infection on presentation. 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-start daptomycin Follow urine cultures (6) Diabetes: Plan: Holding home Metformin cancel Glycemic consult as not necessary Patient is very well controlled Add NovoLog supplemental insulin (7) Hyperlipidemia: Plan: Continue Lopid (8) Diabetic ulcer of right foot: Plan: Recently seen at wound care center, cultures grew MSSA and was treated with Bactrim and then doxycycline as an outpatient Continue wound care here Daptomycin would also cover for MSSA Follow-up on wound cultures collected on 12/22 (9) Diabetic ulcer of left foot: (10) Cellulitis of right leg: Plan: As above, not significant and is only localized around the foot ulcer Continue daptomycin (11) VIKY (acute kidney injury): Plan: #VIKY on CKD Creatinine on presentation 2.27, baseline appears to be 0.8. Secondary to mild hypotension and acute blood loss anemia -Gentle fluid hydration with LR x1 bag was given as well as 2 units PRBCs -Avoid nephrotoxins -Trend BMP Repeat BMP later in the day with creatinine much improved 1.4 Suprapubic catheter is draining very well and he is making plenty of urine (12) Hypertension: Plan: Blood pressures were low on arrival and now improving -Holding lisinopril secondary to VIKY -Holding furosemide Continued Propranolol 120 mg daily with hold parameters (13) Leukocytosis: Plan: As above, could be reactive to severe anemia versus from infection Follow CBC (14) Hypokalemia: Plan: Replaced with 40 mEq of p.o. potassium chloride Follow BMP in the morning (15) DVT prophylaxis: Plan: Hold anticoagulation due to suspected GI bleeding Disposition-continued stay in PCU Admission and Anticipated Discharge Date Admission Date: December 23, 2020 Subjective Patient still feels quite tired but denies abdominal pain or heartburn, no chest pain or shortness of breath. He denies any black tarry stools or blood in his stools. Normally he can do his own transfers from bed to wheelchair. I discussed his care with gastroenterology. Telemetry with normal sinus rhythm with rates in the 80s. He received 2 units PRBCs today. Review of Systems Review of Systems: All systems reviewed & are unremarkable except as noted in HPI & below Physical Exam Constitutional: WD/WN, vitals as above Neck: trachea midline, no thyromegaly Respiratory: normal respiratory effort, lungs clear to auscultation Cardiovascular: RRR, no murmur, no edema Chest (Breasts): Chest: normal inspection of chest Gastrointestinal (Abdomen): Inspection/Auscultation: normal bowel sounds Percussion/Palpation: abdomen soft and + abdominal mass (Large hard mass suspected stool ball in right lower quadrant); abdomen nontender Musculoskeletal: Extremities: extremities normal to inspection; no cyanosis and no clubbing Skin: no rashes, warm and dry Neurologic: moves all extremities and awake Psychiatric: A+Ox3, euthymic affect Genitourinary: Suprapubic catheter in place draining clear yellow urine Lymphatic: no lymphedema Results & Data Results & Data ([facility]) Vital Signs (Past 12 Hours) Vital Signs Temp Pulse Pulse Resp BP BP Pulse Ox 12/23/20 09:06 37.1 C 90 20 109/52 L 96 12/23/20 08:27 36.6 C 88 18 119/62 12/23/20 07:32 36.4 C L 87 18 120/61 95 12/23/20 07:02 85 16 119/63 98 12/23/20 06:47 36.7 C 87 132/49 L 98 12/23/20 06:31 36.8 C 88 18 127/47 L 97 12/23/20 06:14 36.6 C 87 16 111/63 98 12/23/20 06:13 36.6 C 84 18 105/52 L 98 12/23/20 05:28 36.6 C 83 18 118/65 98 12/23/20 04:58 36.5 C 80 16 98/59 L 96 12/23/20 04:43 36.5 C 83 16 96/53 L 95 12/23/20 04:30 36.4 C L 84 18 113/50 L 94 12/23/20 04:22 36.4 C L 80 16 113/50 L 95 12/23/20 04:20 36.7 C 82 24 112/61 95 12/23/20 04:16 80 12/23/20 02:31 83 18 99/60 L 98 12/23/20 01:43 82 18 102/57 L 98 12/23/20 01:21 83 20 110/77 99 12/22/20 23:28 98 12/22/20 23:14 36.7 C 79 22 106/46 L 99 Laboratory Results 12/23/20 12/23/20 12/23/20 Range/Units 16:23 16:15 11:24 WBC 12.25 H (4.8-10.8) K/uL RBC 2.27 L (4.7-6.1) M/uL Hgb 7.7 L (14.0-18.0) g/dL Hct 22.4 L (42-52) % MCV 98.7 (80-100) fL MCH 33.9 (25-34) pg MCHC 34.4 (32-36) g/dL RDW Std Deviation 52.3 H (36.4-46.3) fL RDW Coeff of Renée 16.7 H (11.5-14.5) % Plt Count 296 (130-400) K/uL MPV 8.1 (7.4-10.4) fL Immature Gran % (Auto) % Neut % (Auto) % Lymph % (Auto) % Stokes % (Auto) % Eos % (Auto) % Baso % (Auto) % Reticulocyte % (Auto) (0.5-2.0) % Neut # (Auto) (1.4-6.5) K/uL Lymph # (Auto) (1.2-3.4) K/uL Stokes # (Auto) (0.11-0.59) K/uL Eos # (Auto) (0-0.5) K/uL Baso # (Auto) (0-0.2) K/uL Reticulocyte # (0.02-0.10) 10^6/uL Immature Gran # (Auto) (0.00-0.02) K/uL Absolute Nucleated RBC 0.06 H (0-0) K/uL Nucleated RBC % (auto) 0.5 % Basophilic Stippling PT (9.0-12.0) Seconds INR (0.9-1.1) APTT (21.0-31.0) Seconds PTT Ratio Sodium (136-145) mmol/L Potassium (3.5-5.1) mmol/L Chloride (98-107) mmol/L Carbon Dioxide (21-32) mmol/L Anion Gap (3-11) BUN (7-18) mg/dl Creatinine (0.6-1.4) mg/dl Est Cr Clr Drug Dosing ml/min Est GFR ( Amer) ml/min Est GFR (Non-Af Amer) ml/min BUN/Creatinine Ratio (10-20) Glucose (70-99) mg/dl POC Glucose 182 H 164 H (70-99) mg/dl Osmolality (280-300) mOsm/kg Lactate (0.4-2.0) mmol/L Calcium (8.5-10.1) mg/dl Magnesium (1.8-2.4) mg/dl Iron (35-175) mcg/dl TIBC (250-450) mcg/dl Transferrin (200-360) mg/dl Ferritin (8-388) ng/ml Total Bilirubin (0.2-1) mg/dl AST (15-37) U/L ALT (12-78) U/L Alkaline Phosphatase (45-117) U/L Troponin I (0-0.045) ng/ml C-Reactive Protein (0-0.29) mg/dl Total Protein (6.4-8.2) gm/dl Albumin (3.4-5.0) gm/dl Globulin (2.5-4.0) gm/dl Albumin/Globulin Ratio (0.9-2) Vitamin B12 (193-986) pg/ml Folate (>5.38) ng/ml TSH (0.300-4.500) uIu/ml Urine Color Urine Appearance (Clear) Urine pH (4.5-7.5) Ur Specific Midway (1.000-1.030) Urine Protein (Negative) Urine Glucose (UA) (Negative) Urine Ketones (Negative) Urine Blood (Negative) Urine Nitrite (Negative) Urine Bilirubin (Negative) Urine Urobilinogen (Negative) Ur Leukocyte Esterase (Negative) Urine WBC (Auto) (0-5) /hpf Urine RBC (Auto) (0-4) /hpf U Hyaline Cast (Auto) (0-5) /lpf U Epithel Cells (Auto) (0-5) /lpf Urine Bacteria (Auto) (Negative) Ur Renal Epithelial Cell Urine Yeast (None Prsent) Urine Osmolality (500-800) mOsm/kg Ur Random Sodium mmol/L COVID-19 Eval Order SARS-CoV-2 (PCR) (Negative) Hepatitis C Ab Screen Blood Type Blood Type Recheck Antibody Screen Crossmatch 12/23/20 12/23/20 12/23/20 Range/Units 09:46 09:46 09:46 WBC (4.8-10.8) K/uL RBC (4.7-6.1) M/uL Hgb (14.0-18.0) g/dL Hct (42-52) % MCV (80-100) fL MCH (25-34) pg MCHC (32-36) g/dL RDW Std Deviation (36.4-46.3) fL RDW Coeff of Renée (11.5-14.5) % Plt Count (130-400) K/uL MPV (7.4-10.4) fL Immature Gran % (Auto) % Neut % (Auto) % Lymph % (Auto) % Stokes % (Auto) % Eos % (Auto) % Baso % (Auto) % Reticulocyte % (Auto) (0.5-2.0) % Neut # (Auto) (1.4-6.5) K/uL Lymph # (Auto) (1.2-3.4) K/uL Stokes # (Auto) (0.11-0.59) K/uL Eos # (Auto) (0-0.5) K/uL Baso # (Auto) (0-0.2) K/uL Reticulocyte # (0.02-0.10) 10^6/uL Immature Gran # (Auto) (0.00-0.02) K/uL Absolute Nucleated RBC (0-0) K/uL Nucleated RBC % (auto) % Basophilic Stippling PT (9.0-12.0) Seconds INR (0.9-1.1) APTT (21.0-31.0) Seconds PTT Ratio Sodium 138 (136-145) mmol/L Potassium 2.8 L D (3.5-5.1) mmol/L Chloride 105 (98-107) mmol/L Carbon Dioxide 24 (21-32) mmol/L Anion Gap 10.0 (3-11) BUN 42 H (7-18) mg/dl Creatinine 1.40 D (0.6-1.4) mg/dl Est Cr Clr Drug Dosing 50.9 ml/min Est GFR ( Amer) 59.8 ml/min Est GFR (Non-Af Amer) 51.6 ml/min BUN/Creatinine Ratio 29.8 H (10-20) Glucose 165 H (70-99) mg/dl POC Glucose (70-99) mg/dl Osmolality (280-300) mOsm/kg Lactate (0.4-2.0) mmol/L Calcium 8.7 (8.5-10.1) mg/dl Magnesium (1.8-2.4) mg/dl Iron 64 (35-175) mcg/dl TIBC 306 (250-450) mcg/dl Transferrin 264 (200-360) mg/dl Ferritin 119.2 (8-388) ng/ml Total Bilirubin (0.2-1) mg/dl AST (15-37) U/L ALT (12-78) U/L Alkaline Phosphatase (45-117) U/L Troponin I (0-0.045) ng/ml C-Reactive Protein 1.36 H (0-0.29) mg/dl Total Protein (6.4-8.2) gm/dl Albumin (3.4-5.0) gm/dl Globulin (2.5-4.0) gm/dl Albumin/Globulin Ratio (0.9-2) Vitamin B12 426 (193-986) pg/ml Folate 8.10 (>5.38) ng/ml TSH 0.374 (0.300-4.500) uIu/ml Urine Color Urine Appearance (Clear) Urine pH (4.5-7.5) Ur Specific Midway (1.000-1.030) Urine Protein (Negative) Urine Glucose (UA) (Negative) Urine Ketones (Negative) Urine Blood (Negative) Urine Nitrite (Negative) Urine Bilirubin (Negative) Urine Urobilinogen (Negative) Ur Leukocyte Esterase (Negative) Urine WBC (Auto) (0-5) /hpf Urine RBC (Auto) (0-4) /hpf U Hyaline Cast (Auto) (0-5) /lpf U Epithel Cells (Auto) (0-5) /lpf Urine Bacteria (Auto) (Negative) Ur Renal Epithelial Cell Urine Yeast (None Prsent) Urine Osmolality (500-800) mOsm/kg Ur Random Sodium mmol/L COVID-19 Eval Order SARS-CoV-2 (PCR) (Negative) Hepatitis C Ab Screen Pending Blood Type Blood Type Recheck Antibody Screen Crossmatch 12/23/20 12/23/20 12/23/20 Range/Units 09:46 07:16 04:40 WBC 13.11 H (4.8-10.8) K/uL RBC 2.38 L (4.7-6.1) M/uL Hgb 8.0 L (14.0-18.0) g/dL Hct 23.7 L (42-52) % MCV 99.6 (80-100) fL MCH 33.6 (25-34) pg MCHC 33.8 (32-36) g/dL RDW Std Deviation 51.3 H (36.4-46.3) fL RDW Coeff of Renée 15.9 H (11.5-14.5) % Plt Count 326 (130-400) K/uL MPV 7.8 (7.4-10.4) fL Immature Gran % (Auto) 1.3 % Neut % (Auto) 85.8 % Lymph % (Auto) 7.3 % Stokes % (Auto) 5.3 % Eos % (Auto) 0.2 % Baso % (Auto) 0.1 % Reticulocyte % (Auto) 9.6 H (0.5-2.0) % Neut # (Auto) 11.25 H (1.4-6.5) K/uL Lymph # (Auto) 0.96 L (1.2-3.4) K/uL Stokes # (Auto) 0.70 H (0.11-0.59) K/uL Eos # (Auto) 0.02 (0-0.5) K/uL Baso # (Auto) 0.01 (0-0.2) K/uL Reticulocyte # 0.23 H (0.02-0.10) 10^6/uL Immature Gran # (Auto) 0.17 H (0.00-0.02) K/uL Absolute Nucleated RBC 0.05 H (0-0) K/uL Nucleated RBC % (auto) 0.4 % Basophilic Stippling PT (9.0-12.0) Seconds INR (0.9-1.1) APTT (21.0-31.0) Seconds PTT Ratio Sodium (136-145) mmol/L Potassium (3.5-5.1) mmol/L Chloride (98-107) mmol/L Carbon Dioxide (21-32) mmol/L Anion Gap (3-11) BUN (7-18) mg/dl Creatinine (0.6-1.4) mg/dl Est Cr Clr Drug Dosing ml/min Est GFR ( Amer) ml/min Est GFR (Non-Af Amer) ml/min BUN/Creatinine Ratio (10-20) Glucose (70-99) mg/dl POC Glucose 199 H 229 H (70-99) mg/dl Osmolality (280-300) mOsm/kg Lactate (0.4-2.0) mmol/L Calcium (8.5-10.1) mg/dl Magnesium (1.8-2.4) mg/dl Iron (35-175) mcg/dl TIBC (250-450) mcg/dl Transferrin (200-360) mg/dl Ferritin (8-388) ng/ml Total Bilirubin (0.2-1) mg/dl AST (15-37) U/L ALT (12-78) U/L Alkaline Phosphatase (45-117) U/L Troponin I (0-0.045) ng/ml C-Reactive Protein (0-0.29) mg/dl Total Protein (6.4-8.2) gm/dl Albumin (3.4-5.0) gm/dl Globulin (2.5-4.0) gm/dl Albumin/Globulin Ratio (0.9-2) Vitamin B12 (193-986) pg/ml Folate (>5.38) ng/ml TSH (0.300-4.500) uIu/ml Urine Color Urine Appearance (Clear) Urine pH (4.5-7.5) Ur Specific Midway (1.000-1.030) Urine Protein (Negative) Urine Glucose (UA) (Negative) Urine Ketones (Negative) Urine Blood (Negative) Urine Nitrite (Negative) Urine Bilirubin (Negative) Urine Urobilinogen (Negative) Ur Leukocyte Esterase (Negative) Urine WBC (Auto) (0-5) /hpf Urine RBC (Auto) (0-4) /hpf U Hyaline Cast (Auto) (0-5) /lpf U Epithel Cells (Auto) (0-5) /lpf Urine Bacteria (Auto) (Negative) Ur Renal Epithelial Cell Urine Yeast (None Prsent) Urine Osmolality (500-800) mOsm/kg Ur Random Sodium mmol/L COVID-19 Eval Order SARS-CoV-2 (PCR) (Negative) Hepatitis C Ab Screen Blood Type Blood Type Recheck Antibody Screen Crossmatch 12/23/20 12/23/20 12/23/20 Range/Units 02:25 02:09 02:09 WBC (4.8-10.8) K/uL RBC (4.7-6.1) M/uL Hgb (14.0-18.0) g/dL Hct (42-52) % MCV (80-100) fL MCH (25-34) pg MCHC (32-36) g/dL RDW Std Deviation (36.4-46.3) fL RDW Coeff of Renée (11.5-14.5) % Plt Count (130-400) K/uL MPV (7.4-10.4) fL Immature Gran % (Auto) % Neut % (Auto) % Lymph % (Auto) % Stokes % (Auto) % Eos % (Auto) % Baso % (Auto) % Reticulocyte % (Auto) (0.5-2.0) % Neut # (Auto) (1.4-6.5) K/uL Lymph # (Auto) (1.2-3.4) K/uL Stokes # (Auto) (0.11-0.59) K/uL Eos # (Auto) (0-0.5) K/uL Baso # (Auto) (0-0.2) K/uL Reticulocyte # (0.02-0.10) 10^6/uL Immature Gran # (Auto) (0.00-0.02) K/uL Absolute Nucleated RBC (0-0) K/uL Nucleated RBC % (auto) % Basophilic Stippling PT (9.0-12.0) Seconds INR (0.9-1.1) APTT (21.0-31.0) Seconds PTT Ratio Sodium (136-145) mmol/L Potassium (3.5-5.1) mmol/L Chloride (98-107) mmol/L Carbon Dioxide (21-32) mmol/L Anion Gap (3-11) BUN (7-18) mg/dl Creatinine (0.6-1.4) mg/dl Est Cr Clr Drug Dosing ml/min Est GFR ( Amer) ml/min Est GFR (Non-Af Amer) ml/min BUN/Creatinine Ratio (10-20) Glucose (70-99) mg/dl POC Glucose (70-99) mg/dl Osmolality (280-300) mOsm/kg Lactate (0.4-2.0) mmol/L Calcium (8.5-10.1) mg/dl Magnesium (1.8-2.4) mg/dl Iron (35-175) mcg/dl TIBC (250-450) mcg/dl Transferrin (200-360) mg/dl Ferritin (8-388) ng/ml Total Bilirubin (0.2-1) mg/dl AST (15-37) U/L ALT (12-78) U/L Alkaline Phosphatase (45-117) U/L Troponin I (0-0.045) ng/ml C-Reactive Protein (0-0.29) mg/dl Total Protein (6.4-8.2) gm/dl Albumin (3.4-5.0) gm/dl Globulin (2.5-4.0) gm/dl Albumin/Globulin Ratio (0.9-2) Vitamin B12 (193-986) pg/ml Folate (>5.38) ng/ml TSH (0.300-4.500) uIu/ml Urine Color Urine Appearance (Clear) Urine pH (4.5-7.5) Ur Specific Midway (1.000-1.030) Urine Protein (Negative) Urine Glucose (UA) (Negative) Urine Ketones (Negative) Urine Blood (Negative) Urine Nitrite (Negative) Urine Bilirubin (Negative) Urine Urobilinogen (Negative) Ur Leukocyte Esterase (Negative) Urine WBC (Auto) (0-5) /hpf Urine RBC (Auto) (0-4) /hpf U Hyaline Cast (Auto) (0-5) /lpf U Epithel Cells (Auto) (0-5) /lpf Urine Bacteria (Auto) (Negative) Ur Renal Epithelial Cell Urine Yeast (None Prsent) Urine Osmolality (500-800) mOsm/kg Ur Random Sodium mmol/L COVID-19 Eval Order Covid19 at [facility] SARS-CoV-2 (PCR) NEGATIVE (Negative) Hepatitis C Ab Screen Blood Type Blood Type Recheck O Positive Antibody Screen Crossmatch 12/23/20 12/23/20 12/23/20 Range/Units 01:26 01:26 00:08 WBC (4.8-10.8) K/uL RBC (4.7-6.1) M/uL Hgb (14.0-18.0) g/dL Hct (42-52) % MCV (80-100) fL MCH (25-34) pg MCHC (32-36) g/dL RDW Std Deviation (36.4-46.3) fL RDW Coeff of Renée (11.5-14.5) % Plt Count (130-400) K/uL MPV (7.4-10.4) fL Immature Gran % (Auto) % Neut % (Auto) % Lymph % (Auto) % Stokes % (Auto) % Eos % (Auto) % Baso % (Auto) % Reticulocyte % (Auto) (0.5-2.0) % Neut # (Auto) (1.4-6.5) K/uL Lymph # (Auto) (1.2-3.4) K/uL Stokes # (Auto) (0.11-0.59) K/uL Eos # (Auto) (0-0.5) K/uL Baso # (Auto) (0-0.2) K/uL Reticulocyte # (0.02-0.10) 10^6/uL Immature Gran # (Auto) (0.00-0.02) K/uL Absolute Nucleated RBC (0-0) K/uL Nucleated RBC % (auto) % Basophilic Stippling PT (9.0-12.0) Seconds INR (0.9-1.1) APTT (21.0-31.0) Seconds PTT Ratio Sodium (136-145) mmol/L Potassium (3.5-5.1) mmol/L Chloride (98-107) mmol/L Carbon Dioxide (21-32) mmol/L Anion Gap (3-11) BUN (7-18) mg/dl Creatinine (0.6-1.4) mg/dl Est Cr Clr Drug Dosing ml/min Est GFR ( Amer) ml/min Est GFR (Non-Af Amer) ml/min BUN/Creatinine Ratio (10-20) Glucose (70-99) mg/dl POC Glucose (70-99) mg/dl Osmolality (280-300) mOsm/kg Lactate 1.2 (0.4-2.0) mmol/L Calcium (8.5-10.1) mg/dl Magnesium (1.8-2.4) mg/dl Iron (35-175) mcg/dl TIBC (250-450) mcg/dl Transferrin (200-360) mg/dl Ferritin (8-388) ng/ml Total Bilirubin (0.2-1) mg/dl AST (15-37) U/L ALT (12-78) U/L Alkaline Phosphatase (45-117) U/L Troponin I (0-0.045) ng/ml C-Reactive Protein (0-0.29) mg/dl Total Protein (6.4-8.2) gm/dl Albumin (3.4-5.0) gm/dl Globulin (2.5-4.0) gm/dl Albumin/Globulin Ratio (0.9-2) Vitamin B12 (193-986) pg/ml Folate (>5.38) ng/ml TSH (0.300-4.500) uIu/ml Urine Color Urine Appearance (Clear) Urine pH (4.5-7.5) Ur Specific Midway (1.000-1.030) Urine Protein (Negative) Urine Glucose (UA) (Negative) Urine Ketones (Negative) Urine Blood (Negative) Urine Nitrite (Negative) Urine Bilirubin (Negative) Urine Urobilinogen (Negative) Ur Leukocyte Esterase (Negative) Urine WBC (Auto) (0-5) /hpf Urine RBC (Auto) (0-4) /hpf U Hyaline Cast (Auto) (0-5) /lpf U Epithel Cells (Auto) (0-5) /lpf Urine Bacteria (Auto) (Negative) Ur Renal Epithelial Cell Urine Yeast (None Prsent) Urine Osmolality (500-800) mOsm/kg Ur Random Sodium 21 mmol/L COVID-19 Eval Order SARS-CoV-2 (PCR) (Negative) Hepatitis C Ab Screen Blood Type O Positive Blood Type Recheck Antibody Screen NEGATIVE Crossmatch See Detail 12/23/20 12/23/20 12/22/20 Range/Units 00:08 00:08 23:22 WBC (4.8-10.8) K/uL RBC (4.7-6.1) M/uL Hgb (14.0-18.0) g/dL Hct (42-52) % MCV (80-100) fL MCH (25-34) pg MCHC (32-36) g/dL RDW Std Deviation (36.4-46.3) fL RDW Coeff of Renée (11.5-14.5) % Plt Count (130-400) K/uL MPV (7.4-10.4) fL Immature Gran % (Auto) % Neut % (Auto) % Lymph % (Auto) % Stokes % (Auto) % Eos % (Auto) % Baso % (Auto) % Reticulocyte % (Auto) (0.5-2.0) % Neut # (Auto) (1.4-6.5) K/uL Lymph # (Auto) (1.2-3.4) K/uL Stokes # (Auto) (0.11-0.59) K/uL Eos # (Auto) (0-0.5) K/uL Baso # (Auto) (0-0.2) K/uL Reticulocyte # (0.02-0.10) 10^6/uL Immature Gran # (Auto) (0.00-0.02) K/uL Absolute Nucleated RBC (0-0) K/uL Nucleated RBC % (auto) % Basophilic Stippling PT (9.0-12.0) Seconds INR (0.9-1.1) APTT (21.0-31.0) Seconds PTT Ratio Sodium (136-145) mmol/L Potassium (3.5-5.1) mmol/L Chloride (98-107) mmol/L Carbon Dioxide (21-32) mmol/L Anion Gap (3-11) BUN (7-18) mg/dl Creatinine (0.6-1.4) mg/dl Est Cr Clr Drug Dosing ml/min Est GFR ( Amer) ml/min Est GFR (Non-Af Amer) ml/min BUN/Creatinine Ratio (10-20) Glucose (70-99) mg/dl POC Glucose (70-99) mg/dl Osmolality 305 H (280-300) mOsm/kg Lactate (0.4-2.0) mmol/L Calcium (8.5-10.1) mg/dl Magnesium (1.8-2.4) mg/dl Iron (35-175) mcg/dl TIBC (250-450) mcg/dl Transferrin (200-360) mg/dl Ferritin (8-388) ng/ml Total Bilirubin (0.2-1) mg/dl AST (15-37) U/L ALT (12-78) U/L Alkaline Phosphatase (45-117) U/L Troponin I (0-0.045) ng/ml C-Reactive Protein (0-0.29) mg/dl Total Protein (6.4-8.2) gm/dl Albumin (3.4-5.0) gm/dl Globulin (2.5-4.0) gm/dl Albumin/Globulin Ratio (0.9-2) Vitamin B12 (193-986) pg/ml Folate (>5.38) ng/ml TSH (0.300-4.500) uIu/ml Urine Color Yellow Urine Appearance Clear (Clear) Urine pH 5.0 (4.5-7.5) Ur Specific Midway 1.015 (1.000-1.030) Urine Protein Negative (Negative) Urine Glucose (UA) Negative (Negative) Urine Ketones Trace H (Negative) Urine Blood Negative (Negative) Urine Nitrite Negative (Negative) Urine Bilirubin Negative (Negative) Urine Urobilinogen Negative (Negative) Ur Leukocyte Esterase 2+ H (Negative) Urine WBC (Auto) 10-30 H (0-5) /hpf Urine RBC (Auto) 0-4 (0-4) /hpf U Hyaline Cast (Auto) 5-10 H (0-5) /lpf U Epithel Cells (Auto) >30 H (0-5) /lpf Urine Bacteria (Auto) 1+ H (Negative) Ur Renal Epithelial Cell Not Reportable Urine Yeast Budding A (None Prsent) Urine Osmolality 363 L (500-800) mOsm/kg Ur Random Sodium mmol/L COVID-19 Eval Order SARS-CoV-2 (PCR) (Negative) Hepatitis C Ab Screen Blood Type Blood Type Recheck Antibody Screen Crossmatch 12/22/20 12/22/20 12/22/20 Range/Units 23:22 23:22 23:22 WBC 17.37 H (4.8-10.8) K/uL RBC 1.59 L (4.7-6.1) M/uL Hgb 5.5 L* (14.0-18.0) g/dL Hct 16.5 L* (42-52) % MCV 103.8 H (80-100) fL MCH 34.6 H (25-34) pg MCHC 33.3 (32-36) g/dL RDW Std Deviation 53.4 H (36.4-46.3) fL RDW Coeff of Renée 16.6 H (11.5-14.5) % Plt Count 380 (130-400) K/uL MPV 7.9 (7.4-10.4) fL Immature Gran % (Auto) 1.7 % Neut % (Auto) 83.4 % Lymph % (Auto) 8.0 % Stokes % (Auto) 6.6 % Eos % (Auto) 0.2 % Baso % (Auto) 0.1 % Reticulocyte % (Auto) (0.5-2.0) % Neut # (Auto) 14.50 H (1.4-6.5) K/uL Lymph # (Auto) 1.39 (1.2-3.4) K/uL Stokes # (Auto) 1.15 H (0.11-0.59) K/uL Eos # (Auto) 0.03 (0-0.5) K/uL Baso # (Auto) 0.01 (0-0.2) K/uL Reticulocyte # (0.02-0.10) 10^6/uL Immature Gran # (Auto) 0.29 H (0.00-0.02) K/uL Absolute Nucleated RBC 0.09 H (0-0) K/uL Nucleated RBC % (auto) 0.5 % Basophilic Stippling 1+ PT 11.0 (9.0-12.0) Seconds INR 1.1 (0.9-1.1) APTT 20.6 L (21.0-31.0) Seconds PTT Ratio 0.8 Sodium 134 L (136-145) mmol/L Potassium 3.6 (3.5-5.1) mmol/L Chloride 99 (98-107) mmol/L Carbon Dioxide 25 (21-32) mmol/L Anion Gap 10.0 (3-11) BUN 67 H (7-18) mg/dl Creatinine 2.27 H (0.6-1.4) mg/dl Est Cr Clr Drug Dosing 32.0 ml/min Est GFR ( Amer) 33.4 ml/min Est GFR (Non-Af Amer) 28.8 ml/min BUN/Creatinine Ratio 29.3 H (10-20) Glucose 208 H (70-99) mg/dl POC Glucose (70-99) mg/dl Osmolality (280-300) mOsm/kg Lactate (0.4-2.0) mmol/L Calcium 8.8 (8.5-10.1) mg/dl Magnesium 2.3 (1.8-2.4) mg/dl Iron (35-175) mcg/dl TIBC (250-450) mcg/dl Transferrin (200-360) mg/dl Ferritin (8-388) ng/ml Total Bilirubin 0.3 (0.2-1) mg/dl AST 15 (15-37) U/L ALT 17 (12-78) U/L Alkaline Phosphatase 53 (45-117) U/L Troponin I < 0.015 (0-0.045) ng/ml C-Reactive Protein (0-0.29) mg/dl Total Protein 6.6 (6.4-8.2) gm/dl Albumin 3.3 L (3.4-5.0) gm/dl Globulin 3.3 (2.5-4.0) gm/dl Albumin/Globulin Ratio 1.0 (0.9-2) Vitamin B12 (193-986) pg/ml Folate (>5.38) ng/ml TSH 0.569 (0.300-4.500) uIu/ml Urine Color Urine Appearance (Clear) Urine pH (4.5-7.5) Ur Specific [place] (1.000-1.030) Urine Protein (Negative) Urine Glucose (UA) (Negative) Urine Ketones (Negative) Urine Blood (Negative) Urine Nitrite (Negative) Urine Bilirubin (Negative) Urine Urobilinogen (Negative) Ur Leukocyte Esterase (Negative) Urine WBC (Auto) (0-5) /hpf Urine RBC (Auto) (0-4) /hpf U Hyaline Cast (Auto) (0-5) /lpf U Epithel Cells (Auto) (0-5) /lpf Urine Bacteria (Auto) (Negative) Ur Renal Epithelial Cell Urine Yeast (None Prsent) Urine Osmolality (500-800) mOsm/kg Ur Random Sodium mmol/L COVID-19 Eval Order SARS-CoV-2 (PCR) (Negative) Hepatitis C Ab Screen Blood Type Blood Type Recheck Antibody Screen Crossmatch PG Care Time/CCT Total # of Minutes Spent Total Time Spent with Patient: Total time spent is greater than 50% in coordination of care (as documented) at patient's floor/unit and/or counseling patient: Coding Level of Care Code None Diagnoses 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; 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 Diabetic ulcer of left foot E11.621; L97.529 Indwelling Hernandez catheter present Z96.0 Cerebral palsy G80.9 Cerebral palsy type: unspecified type UTI (urinary tract infection) T83.511A; N39.0 Encounter type: initial encounter Indwelling urinary catheter type: indwelling urethral catheter Urinary tract infection type: catheter-associated UTI Diabetes E11.40 Diabetes mellitus complication detail: with unspecified neuropathy Diabetes mellitus complication status: with neurologic complications Diabetes mellitus residential insulin use: without anesthesiologist and critical care use Diabetes mellitus type: type 2 Anemia D64.9 Anemia type: unspecified type Hyperlipidemia E78.2 Hyperlipidemia type: mixed hyperlipidemia Constipation K59.00 Cellulitis of right leg L03.115 VIKY (acute kidney injury) N17.9 DVT prophylaxis Z29.9 Hypertension I10 Hypertension type: essential hypertension Leukocytosis D72.829 Hypokalemia E87.6 (1) UTI (urinary tract infection) Encounter type: initial encounter Indwelling urinary catheter type: indwelling urethral catheter Urinary tract infection type: catheter-associated UTI Qualified Code(s): T83.511A - Infection and inflammatory reaction due to indwelling urethral catheter, initial encounter; N39.0 - Urinary tract infection, site not specified (2) Diabetes Diabetes mellitus complication detail: with unspecified neuropathy Diabetes mellitus complication status: with neurologic complications Diabetes mellitus residential insulin use: without residential use Diabetes mellitus type: type 2 Qualified Code(s): E11.40 - Type 2 diabetes mellitus with diabetic neuropathy, unspecified (3) Anemia Anemia type: unspecified type Qualified Code(s): D64.9 - Anemia, unspecified (4) Cerebral palsy Cerebral palsy type: unspecified type Qualified Code(s): G80.9 - Cerebral palsy, unspecified (5) Hyperlipidemia Hyperlipidemia type: mixed hyperlipidemia Qualified Code(s): E78.2 - Mixed hyperlipidemia (6) Hypertension Hypertension type: essential hypertension Qualified Code(s): I10 - Essential (primary) hypertension
--- NOTE | 2020-12-23 10:40 | Electrocardiogram Report ---
Test Reason : Blood Pressure : / mmHG Vent. Rate : 080 BPM Atrial Rate : 080 BPM P-R Int : 146 ms QRS Dur : 086 ms QT Int : 388 ms P-R-T Axes : 059 030 037 degrees QTc Int : 447 ms Normal sinus rhythm Low voltage QRS Nonspecific T wave abnormality When compared with ECG of 06-APR-2019 13:45, No significant change was found Confirmed by Gregg Manzanares ([id number]) on 12/23/2020 10:39:38 AM Referred By: REFERRED SELF Confirmed By:Gregg Manzanares
[2020-12-23 10:44] LABS: BUN Creatinine Ratio 29.8 (10-20); C Reactive Protein 1.36 mg/dl (0-0.29); Calcium 8.7 mg/dl (8.5-10.1); Creatinine Clr Calc Pharmacy 50.9 ml/min; Est GFR (African American) 59.8 ml/min; Est GFR (Non-African American) 51.6 ml/min; Potassium 2.8 mmol/L (3.5-5.1)
[2020-12-23] MEDS ORDERED: POTASSIUM CHLORIDE CRTAB 20 MEQ TABCR PO STA (10:58)
[2020-12-23 11:02] LABS: Ferritin 119.2 ng/ml (8-388); Thyroid Stimulating Hormone 0.374 uIu/ml (0.300-4.500)
[2020-12-23 11:42] LABS: Folate (Folic Acid) 8.1 ng/ml (>5.38)
--- NOTE | 2020-12-23 15:32 | Gastrointestinal Consultation ---
Date of Consultation December 23, 2020 Assessment & Plan (1) Acute anemia: No signs of overt GI blood loss at present Recommend Protonix BID at present Consider EGD for further evaluation of non-specific duodenitis seen on CT imaging (2) Constipation: Would recommend Miralax bowel Prep tonight and complete in AM to aid in cleaning out large bowel, then will need maintenance Miralax therapy 17 g PO daily in 8 oz glass of water thereafter Continue Docusate 100 mg by mouth PO BID Continue Dulcolax suppository OK HS PRN Replete potassium (3) Generalized weakness: History of Present Illness Reason for Consultation: Anemia Attending Physician: Juana Pisano MD History of Present Illness Mr. Humphreys is a 65 yo CM with an extensive PMHx who presented to the ER yesterday, with complaints of generalized weakness. Upon arrival to the ER, he was noted to have an H/H of 5.5/16.5. He was also noted to have evidence of VIKY, UTI, and an elevated WBC count. A CT abd/pelvis was performed in the ER, and showed a large stool burden, as well as non-specific duodenitis. The p atient has no history of overt GI bleeding, and was Hemoccult negative in the ER. He was transfused 2u PRBC and had an appropriate response to H/H of 8.0/23.7. He was given IVF and started on IV antibiotics for his UTI. He was given a stool regimen with Miralax 17 g PO BID. At the time I saw him, he was resting comfortably in his bed. He denies any abdominal pain at present. He further denies any fevers, chills, nausea or vomiting. He states he has not had a BM as of this time. He denies any dysphagia, odynophagia, hematemesis, melena or hematochezia. He further denies any NSAID use at home. He has no further complaints. Allergies Allergy/AdvReac Type Severity Reaction Status Date / Time sulfamethoxazole AdvReac Unknown Nausea Verified 12/22/20 09:19 [From Bactrim] trimethoprim [From Bactrim] AdvReac Unknown Nausea Verified 12/22/20 09:19 Home Medications Medication Instructions Recorded Confirmed Type aspirin 81 mg tablet,delayed 81 mg PO QAM 04/28/18 12/23/20 History release (Aspirin Low Dose) blood-glucose meter (OneTouch #1 ea 11/05/18 12/11/20 History Verio Meter) cholecalciferol (vitamin D3) 25 3,000 units PO QAM tab 11/05/18 12/23/20 History mcg (1,000 unit) tablet magnesium oxide 400 mg (241.3 mg 400 mg PO QAM 11/05/18 12/23/20 History magnesium) tablet Wheelchair (Manual) #1 ea 04/01/19 12/11/20 Rx diaper,brief,adult,disposable #48 ea 06/30/19 12/11/20 Rx miconazole nitrate 2 % topical 1 appln TOP BID #30 gm 11/29/19 12/22/20 Rx cream metformin 1,000 mg tablet 1,000 mg PO BID 02/10/20 12/23/20 History niacin 500 mg tablet (Niacor) 2,500 mg PO HS #150 tab 03/17/20 12/23/20 Rx finasteride 5 mg tablet 5 mg PO QAM #30 tab 03/31/20 12/23/20 Rx blood sugar diagnostic (OneTouch #100 ea 04/10/20 12/11/20 Rx Ultra Blue Test Strip) gemfibrozil 600 mg tablet 600 mg PO BID #180 tab 06/30/20 12/23/20 Rx furosemide 40 mg tablet 40 mg PO DAILY #90 tab 08/14/20 12/23/20 Rx polyethylene glycol 3350 17 17 g PO DAILY PRN #119 g 08/25/20 12/23/20 Rx gram/dose oral powder (Miralax) lisinopril 2.5 mg tablet 2.5 mg PO QAM #90 tab 10/17/20 12/23/20 Rx propranolol 120 mg 120 mg PO DAILY #30 cap 10/19/20 12/23/20 Rx capsule,extended release 24 hr sennosides 8.6 mg-docusate sodium 1 tab PO BID #60 tab 10/19/20 12/22/20 Rx 50 mg tablet (Senna with Docusate Sodium) acetic acid 0.25 % irrigation 25 ml IR DIRECTED #1000 ml 11/07/20 12/22/20 Rx solution miscellaneous medical supply 1 ea MISCELLANEOUS ONCE #1 ea 11/10/20 12/11/20 Rx docusate sodium 100 mg tablet 100 mg PO BID 12/23/20 12/23/20 History doxycycline hyclate 100 mg capsule 100 mg PO BID 12/23/20 12/23/20 History potassium chloride 20 mEq 20 meq PO DAILY 12/23/20 12/23/20 History tablet,extended release tramadol 50 mg tablet 50 mg PO DAILY 12/23/20 12/23/20 History Patient History Medical History (Updated 12/23/20 @ 15:32 by Edmund Soliman DO) Cellulitis of right lower leg Cerebral palsy Diabetes Heart disease HTN (hypertension) Metabolic encephalopathy Pneumonia Spina bifida Traumatic wound UTI (urinary tract infection) due to urinary indwelling catheter Wound of right foot Surgical History No pertinent past surgical history Family History Mother Peripheral vascular disease Other Cancer Diabetes Heart disease Hypertension Denies family history of Ovarian cancer Prostate cancer Myocardial infarction Breast cancer Colorectal cancer Social History Smoking Status: Former smoker Tobacco Type: Cigarettes Second Hand Exposure: No; Hx Alcohol Use: No Hx Substance Use: No Preferred Language: Frisian Communication Ability: Effective Visual Impairment: No Limitations Hearing Ability: Use of Hearing Aid Waste [employer] Operator Required: No Beliefs That Will Affect Care: None marital status: Single Current Living Situation: Alone Current Living Situation Comment: has caregivers from [phone] and 2 hours in the evening current occupational status: disabled Other Information That Helps Us Care for You: No Feels Safe at Home: Yes Safety Concerns: Feels Safe At This Time caffeine: Yes during the past year weight has: remained stable Dental Care, Regularly: No Physical Activity Frequency: Does not Exercise Seatbelt Use: never Assistive Devices: Denture - Upper and Denture - Lower Assistive Devices Comment: Electric wheelchair when outside of home. Review of Systems Constitutional: as per Subjective / HPI Eyes: as per Subjective / HPI Ear, Nose, Mouth, Throat: as per Subjective / HPI Respiratory: as per Subjective / HPI Cardiovascular: as per Subjective / HPI Gastrointestinal: as per Subjective / HPI Musculoskeletal: as per Subjective / HPI Integumentary: as per Subjective / HPI Neurologic: as per Subjective / HPI Psychiatric: as per Subjective / HPI Endocrine: as per Subjective / HPI Hematologic / Lymphatic: as per Subjective / HPI Allergy / Immunological: as per Subjective / HPI Physical Exam Constitutional: + ill appearing (chronic); no acute distress Eyes: + anicteric sclerae ENMT: external ear and nose normal, oropharynx normal Neck: normal visual inspection Respiratory: normal respiratory effort, lungs clear to auscultation Cardiovascular: Rate/Rhythm: regular rate and regular rhythm Gastrointestinal (Abdomen): Inspection/Auscultation: abdomen normal to inspection and normal bowel sounds; abdomen not distended Percussion/Palpation: + splenomegaly Skin: no rashes Psychiatric: Orientation: oriented x 3 Asleep, but easily arousable Results & Data ([facility]) Vital Signs (Past 12 Hours) Vital Signs Temp Pulse Pulse Pulse Resp BP BP 12/23/20 15:02 80 12/23/20 11:25 36.7 C 88 22 114/64 12/23/20 09:06 37.1 C 90 20 109/52 L 12/23/20 08:27 36.6 C 88 18 119/62 12/23/20 08:00 82 12/23/20 07:32 36.4 C L 87 18 120/61 12/23/20 07:02 85 16 119/63 12/23/20 06:47 36.7 C 87 132/49 L 12/23/20 06:31 36.8 C 88 18 127/47 L 12/23/20 06:14 36.6 C 87 16 111/63 12/23/20 06:13 36.6 C 84 18 105/52 L 12/23/20 05:28 36.6 C 83 18 118/65 12/23/20 04:58 36.5 C 80 16 98/59 L 12/23/20 04:43 36.5 C 83 16 96/53 L 12/23/20 04:30 36.4 C L 84 18 113/50 L 12/23/20 04:22 36.4 C L 80 16 113/50 L 12/23/20 04:20 36.7 C 82 24 112/61 12/23/20 04:16 80 Pulse Ox 12/23/20 15:02 12/23/20 11:25 97 12/23/20 09:06 96 12/23/20 08:27 12/23/20 08:00 12/23/20 07:32 95 12/23/20 07:02 98 12/23/20 06:47 98 12/23/20 06:31 97 12/23/20 06:14 98 12/23/20 06:13 98 12/23/20 05:28 98 12/23/20 04:58 96 12/23/20 04:43 95 12/23/20 04:30 94 12/23/20 04:22 95 12/23/20 04:20 95 12/23/20 04:16 PG Care Time/CCT Total # of Minutes Spent Total Time Spent with Patient: Total time spent is greater than 50% in coordination of care (as documented) at patient's floor/unit and/or counseling patient: Coding Level of Care Code 75838 Initial Inpt Care Lvl 3 Diagnoses Acute anemia D64.9 Constipation K59.00 Generalized weakness R53.1
[2020-12-23] MEDS ORDERED: POLYETHYLENE (MIRALAX) 17 GM PACK PO ONE (16:00)
[2020-12-23 16:41] LABS: Hematocrit (blood only) 22.4 % (42-52); Hemoglobin 7.7 g/dL (14.0-18.0); Mean Corpuscular Hemoglobin 33.9 pg (25-34); Mean Corpuscular Hgb Conc 34.4 g/dL (32-36); Mean Corpuscular Volume 98.7 fL (80-100); Mean Platelet Volume 8.1 fL (7.4-10.4); Nucleated RBC # (auto) 0.06 K/uL (0-0); Nucleated RBC % (auto) 0.5 %; Platelet Count 296 K/uL (130-400); RDW Coefficient of Variation 16.7 % (11.5-14.5); RDW Standard Deviation 52.3 fL (36.4-46.3); Red Blood Count 2.27 M/uL (4.7-6.1); White Blood Count 12.25 K/uL (4.8-10.8)
[2020-12-23] MEDS: NIACIN 500 MG TAB PO SCH (20:28)
[2020-12-23] MEDS: DAPTOmycin 250 MG in SYRINGE 0 ML IV SCH (20:29)
[2020-12-24 07:01] LABS: Basophils # (auto) 0.02 K/uL (0-0.2); Basophils % (auto) 0.2 %; Eosinophils # (auto) 0.26 K/uL (0-0.5); Eosinophils % (auto) 2.3 %; Hematocrit (blood only) 24.1 % (42-52); Hemoglobin 7.9 g/dL (14.0-18.0); Immature Granulocytes # (auto) 0.22 K/uL (0.00-0.02); Immature Granulocytes % (auto) 1.9 %; Lymphocytes # (auto) 1.76 K/uL (1.2-3.4); Lymphocytes % (auto) 15.4 %; Mean Corpuscular Hemoglobin 33.5 pg (25-34); Mean Corpuscular Hgb Conc 32.8 g/dL (32-36); Mean Corpuscular Volume 102.1 fL (80-100); Monocytes # (auto) 0.97 K/uL (0.11-0.59); Monocytes % (auto) 8.5 %; Neutrophils # (auto) 8.17 K/uL (1.4-6.5); Neutrophils % (auto) 71.7 %; Platelet Count 307 K/uL (130-400); RDW Coefficient of Variation 17.7 % (11.5-14.5); RDW Standard Deviation 56.8 fL (36.4-46.3); Red Blood Count 2.36 M/uL (4.7-6.1)
[2020-12-24 07:25] LABS: Polychromasia 2+
[2020-12-24 07:38] LABS: Albumin Level 3.2 gm/dl (3.4-5.0); BUN Creatinine Ratio 21.6 (10-20); Calcium 9.1 mg/dl (8.5-10.1); Creatinine Clr Calc Pharmacy 86.7 ml/min; Est GFR (African American) 105.5 ml/min; Magnesium 2.3 mg/dl (1.8-2.4)
[2020-12-24 07:48] LABS: Bilirubin,Total 0.5 mg/dl (0.2-1); Globulin 3.2 gm/dl (2.5-4.0); Phosphorus 1.4 mg/dl (2.5-4.9); Total Protein 6.4 gm/dl (6.4-8.2)
[2020-12-24] MEDS ORDERED: POTASSIUM CHLORIDE CRTAB 20 MEQ TABCR PO STA (08:15)
[2020-12-24] MEDS ORDERED: POTASSIUM PHOS 3 MMOL/1 ML INFUSION IV STA (08:15)
[2020-12-24] MEDS: PANTOprazole 40 MG in SYRINGE 0 ML IV SCH ×2 (08:47→20:59)
[2020-12-24] MEDS: POLYETHYLENE (MIRALAX) 17 GM PACK PO SCH ×2 (08:47→20:58)
[2020-12-24] MEDS: INSULIN GLARGINE SOLOSTAR 100 UNITS/ML 3 ML PEN SC SCH (08:47)
[2020-12-24] MEDS: DOCUSATE SODIUM 100 MG CAP PO SCH ×2 (08:48→20:58)
[2020-12-24] MEDS: gemfibroziL 600 MG TAB PO SCH ×2 (08:48→20:58)
[2020-12-24] MEDS: CHOLECALCIFEROL 1,000 UNITS 25 MCG TAB PO SCH (08:48)
[2020-12-24] MEDS: FINASTERIDE 5 MG TAB PO SCH (08:48)
[2020-12-24] MEDS: INSULIN ASPART 100 UNITS/ML 3 ML PEN SC SCH ×4 (08:48→21:21)
[2020-12-24] MEDS: PROPRANOLOL HCL 60 MG LA CAP PO SCH (08:48)
[2020-12-24] MEDS: MAGNESIUM OXIDE 400 MG TAB PO SCH (08:48)
[2020-12-24] MEDS: DOCUSATE SODIUM/SENNA 50/8.6MG TAB PO SCH ×2 (08:48→20:58)
[2020-12-24] MEDS: traMADol HCL 50 MG TABLET PO SCH (08:50)
[2020-12-24] MEDS ORDERED: POTASSIUM PHOSPHATE 21 MMOL in SODIUM CHLORIDE 0.9% 500 ML IV ONE (09:00)
[2020-12-24] MEDS ORDERED: POLYETHYLENE (MIRALAX) 17 GM PACK PO ONE (10:00)
[2020-12-24] MEDS ORDERED: INSULIN GLARGINE SOLOSTAR 100 UNITS/ML 3 ML PEN SC ONE (11:35)
--- NOTE | 2020-12-24 13:42 | Hospitalist Progress Note ---
Date of Service December 24, 2020 Assessment & Plan (1) Anemia: Plan: Patient presenting with complaints of generalized fatigue and weakness, laboratory findings with a hemoglobin of 5.5 Hemoglobin was 11.2 on 12/11 and then dropped down to 5.5 here on admission He is not had any bloody bowel movements that he knows of, however he has chronic colonic distention and a very large fecal mass palpable on examination. CT abdomen/pelvis also was significant fecal load, no retroperitoneal bleed, but did have duodenitis seen. It is notable that he was recently on doxycycline for a wound infection. It is possible that he is bleeding into his gut but it has not come out yet due to his chronic neurogenic bowel. He finally had a very large bowel movement on 12/24 but did have some black stool and it was Hemoccult positive Now status post 2 units PRBCs and repeat hemoglobin is now improved and remained stable at 7.9 He is hemodynamically stable Follow CBC again in the morning MCV is elevated, iron studies normal, B12 and folate normal This is most likely acute blood loss anemia, GI source -Continue clear liquids today and n.p.o. after midnight for EGD on Friday -Transfuse if hemoglobin drops less than 7.5 or becomes hemodynamically unstable -Consult GI appreciated -Continue IV Protonix 40 mg IV twice daily for duodenitis -Discontinue home aspirin -Check H. pylori stool antigen (2) Constipation: Plan: severe, chronic colon distension Received colonoscopy prep overnight 12/23 and had no bowel movements at all until almost noon on 12/24-still severely constipated KUB on 12/24 again shows significant fecal load Continue MiraLAX twice daily and GI recommends bowel prep with MiraLAX for tonight Continue senna/docusate twice daily, bisacodyl SD scheduled at bedtime, extra docusate 100 mg p.o. twice daily (3) Metabolic encephalopathy: Plan: Resolved, was secondary to acute kidney injury, severe constipation, and acute blood loss anemia (4) VIKY (acute kidney injury): Plan: VIKY on CKD stage III Creatinine on presentation 2.27, baseline appears to be 0.8. Secondary to mild hypotension and acute blood loss anemia Received IV fluids as well as 2 units PRBCs Creatinine now back to baseline -Avoid nephrotoxins -Trend BMP Suprapubic catheter is draining very well and he is making plenty of urine (5) Diabetic ulcer of right foot: Plan: Recently seen at wound care center, cultures grew MSSA and was treated with Bactrim and then doxycycline as an outpatient Continue wound care here Daptomycin is being continued for UTI, but would also cover for the Staphylococcus growing in the wound wound cultures collected on 12/22 growing coagulase-negative Staphylococcus-this is a surface culture No cellulitis seen and do not think this needs any further antibiotic therapy (6) UTI (urinary tract infection): Plan: It is unclear if he has a true UTI as he has a chronic indwelling Hernandez catheter, however he did have a leukocytosis upon arrival which is now improving Leukocytosis may be reactive secondary to severe anemia Chronic indwelling catheter urinary tract infection present on admission Patient with chronic indwelling Hernandez catheter, and UA suspicious for infection on presentation. -Reviewed previous cultures-he has a history of MRSA in his urine-continue daptomycin and also now growing gram-negative rods x2-start Zosyn Follow urine cultures (7) Diabetic ulcer of left foot: Plan: Local wound care Wound care nurse consultation (8) Indwelling Hernandez catheter present: Plan: With a history of neurogenic bladder secondary to cerebral palsy Also noted to have BPH Continue finasteride (9) Cerebral palsy: Plan: Noted Supportive care, does not walk and uses wheelchair PT/OT consults (10) Diabetes: Plan: With some hyperglycemia here today Holding home Metformin Continue NovoLog supplemental insulin and tighten down carbohydrate coverage and correction factor, and increase Lantus to 25 units (11) Hyperlipidemia: Plan: Continue Lopid, niacin (12) Cellulitis of right leg: Plan: As above, resolved (13) HTN (hypertension): Plan: Blood pressures were low on arrival and now normal -Holding lisinopril secondary to VIKY can likely restart tomorrow -Holding furosemide Continued Propranolol 120 mg daily with hold parameters (14) Hypokalemia: Plan: Replaced with 40 mEq of p.o. potassium chloride Follow BMP in the morning (15) Leukocytosis: Plan: As above, could be reactive to severe anemia versus from infection-now much improved with blood transfusion and treatment of infection Follow CBC (16) Pressure injury of sacral region, stage 2: Plan: Wound was recently debrided, does not appear infected Continue wound care, offloading pressure (17) Spina bifida: Plan: Noted (18) 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 He may need extra help or perhaps rehab placement Admission and Anticipated Discharge Date Admission Date: December 23, 2020 Subjective Patient drank an entire bowel prep for colonoscopy last night and finally had a very large soft bowel movement that was mostly brown with some black stool at the end of it shortly before I saw him before noon. He denies any chest pain shortness of breath. He reports he is feeling much better. Denies any abdominal pain. I discussed his care with GI. Telemetry with normal sinus rhythm with rates in the 70s to 90s Review of Systems Review of Systems: All systems reviewed & are unremarkable except as noted in HPI & below Physical Exam Constitutional: WD/WN, vitals as above Neck: trachea midline, no thyromegaly Respiratory: normal respiratory effort, lungs clear to auscultation Cardiovascular: RRR, no murmur, no edema Chest (Breasts): Chest: normal inspection of chest Gastrointestinal (Abdomen): Inspection/Auscultation: normal bowel sounds Percussion/Palpation: abdomen soft and + abdominal mass (Stool palpable in the colon); abdomen nontender Musculoskeletal: Extremities: extremities normal to inspection; no cyanosis and no clubbing Skin: no rashes, warm and dry Wound on right lateral foot is debrided and without surrounding erythema, no drainage Wound on left great toe is small and without surrounding erythema or drainage No evidence of cellulitis Neurologic: moves all extremities and awake Psychiatric: A+Ox3, euthymic affect Lymphatic: no lymphedema Results & Data Results & Data ([facility]) Vital Signs (Past 12 Hours) Vital Signs Temp Pulse Pulse Resp BP Pulse Ox 12/24/20 11:29 36.5 C 86 20 114/74 96 12/24/20 08:00 94 H 12/24/20 07:25 36.9 C 81 22 121/64 95 12/24/20 03:00 37.2 C 78 19 122/65 97 Laboratory Results 12/24/20 12/24/20 12/24/20 Range/Units 16:09 13:45 13:45 WBC (4.8-10.8) K/uL RBC (4.7-6.1) M/uL Hgb (14.0-18.0) g/dL Hct (42-52) % MCV (80-100) fL MCH (25-34) pg MCHC (32-36) g/dL RDW Std Deviation (36.4-46.3) fL RDW Coeff of Renée (11.5-14.5) % Plt Count (130-400) K/uL MPV (7.4-10.4) fL Immature Gran % (Auto) % Neut % (Auto) % Lymph % (Auto) % [place] % (Auto) % Eos % (Auto) % Baso % (Auto) % Neut # (Auto) (1.4-6.5) K/uL Lymph # (Auto) (1.2-3.4) K/uL [place] # (Auto) (0.11-0.59) K/uL Eos # (Auto) (0-0.5) K/uL Baso # (Auto) (0-0.2) K/uL Immature Gran # (Auto) (0.00-0.02) K/uL Polychromasia Sodium (136-145) mmol/L Potassium (3.5-5.1) mmol/L Chloride (98-107) mmol/L Carbon Dioxide (21-32) mmol/L Anion Gap (3-11) BUN (7-18) mg/dl Creatinine (0.6-1.4) mg/dl Est Cr Clr Drug Dosing ml/min Est GFR ( Amer) ml/min Est GFR (Non-Af Amer) ml/min BUN/Creatinine Ratio (10-20) Glucose (70-99) mg/dl POC Glucose 91 (70-99) mg/dl Calcium (8.5-10.1) mg/dl Phosphorus (2.5-4.9) mg/dl Magnesium (1.8-2.4) mg/dl Total Bilirubin (0.2-1) mg/dl AST (15-37) U/L ALT (12-78) U/L Alkaline Phosphatase (45-117) U/L Total Protein (6.4-8.2) gm/dl Albumin (3.4-5.0) gm/dl Globulin (2.5-4.0) gm/dl Albumin/Globulin Ratio (0.9-2) Stool Occult Bld Scrn Positive A (Negative) Stool H. pylori Ag Pending 12/24/20 12/24/20 12/24/20 Range/Units 11:27 11:26 07:18 WBC (4.8-10.8) K/uL RBC (4.7-6.1) M/uL Hgb (14.0-18.0) g/dL Hct (42-52) % MCV (80-100) fL MCH (25-34) pg MCHC (32-36) g/dL RDW Std Deviation (36.4-46.3) fL RDW Coeff of Renée (11.5-14.5) % Plt Count (130-400) K/uL MPV (7.4-10.4) fL Immature Gran % (Auto) % Neut % (Auto) % Lymph % (Auto) % [place] % (Auto) % Eos % (Auto) % Baso % (Auto) % Neut # (Auto) (1.4-6.5) K/uL Lymph # (Auto) (1.2-3.4) K/uL [place] # (Auto) (0.11-0.59) K/uL Eos # (Auto) (0-0.5) K/uL Baso # (Auto) (0-0.2) K/uL Immature Gran # (Auto) (0.00-0.02) K/uL Polychromasia Sodium (136-145) mmol/L Potassium (3.5-5.1) mmol/L Chloride (98-107) mmol/L Carbon Dioxide (21-32) mmol/L Anion Gap (3-11) BUN (7-18) mg/dl Creatinine (0.6-1.4) mg/dl Est Cr Clr Drug Dosing ml/min Est GFR ( Amer) ml/min Est GFR (Non-Af Amer) ml/min BUN/Creatinine Ratio (10-20) Glucose (70-99) mg/dl POC Glucose 266 H 441 H* 128 H (70-99) mg/dl Calcium (8.5-10.1) mg/dl Phosphorus (2.5-4.9) mg/dl Magnesium (1.8-2.4) mg/dl Total Bilirubin (0.2-1) mg/dl AST (15-37) U/L ALT (12-78) U/L Alkaline Phosphatase (45-117) U/L Total Protein (6.4-8.2) gm/dl Albumin (3.4-5.0) gm/dl Globulin (2.5-4.0) gm/dl Albumin/Globulin Ratio (0.9-2) Stool Occult Bld Scrn (Negative) Stool H. pylori Ag 12/24/20 12/24/20 12/23/20 Range/Units 06:52 06:51 20:05 WBC 11.40 H (4.8-10.8) K/uL RBC 2.36 L (4.7-6.1) M/uL Hgb 7.9 L (14.0-18.0) g/dL Hct 24.1 L (42-52) % MCV 102.1 H (80-100) fL MCH 33.5 (25-34) pg MCHC 32.8 (32-36) g/dL RDW Std Deviation 56.8 H (36.4-46.3) fL RDW Coeff of Renée 17.7 H (11.5-14.5) % Plt Count 307 (130-400) K/uL MPV 8.0 (7.4-10.4) fL Immature Gran % (Auto) 1.9 % Neut % (Auto) 71.7 % Lymph % (Auto) 15.4 % [place] % (Auto) 8.5 % Eos % (Auto) 2.3 % Baso % (Auto) 0.2 % Neut # (Auto) 8.17 H (1.4-6.5) K/uL Lymph # (Auto) 1.76 (1.2-3.4) K/uL [place] # (Auto) 0.97 H (0.11-0.59) K/uL Eos # (Auto) 0.26 (0-0.5) K/uL Baso # (Auto) 0.02 (0-0.2) K/uL Immature Gran # (Auto) 0.22 H (0.00-0.02) K/uL Polychromasia 2+ Sodium 137 (136-145) mmol/L Potassium 3.0 L (3.5-5.1) mmol/L Chloride 104 (98-107) mmol/L Carbon Dioxide 21 (21-32) mmol/L Anion Gap 12.0 H (3-11) BUN 18 D (7-18) mg/dl Creatinine 0.83 D (0.6-1.4) mg/dl Est Cr Clr Drug Dosing 86.7 ml/min Est GFR ( Amer) 105.5 ml/min Est GFR (Non-Af Amer) 91.0 ml/min BUN/Creatinine Ratio 21.6 H (10-20) Glucose 119 H (70-99) mg/dl POC Glucose 220 H (70-99) mg/dl Calcium 9.1 (8.5-10.1) mg/dl Phosphorus 1.4 L* (2.5-4.9) mg/dl Magnesium 2.3 (1.8-2.4) mg/dl Total Bilirubin 0.5 (0.2-1) mg/dl AST 16 (15-37) U/L ALT 15 (12-78) U/L Alkaline Phosphatase 51 (45-117) U/L Total Protein 6.4 (6.4-8.2) gm/dl Albumin 3.2 L (3.4-5.0) gm/dl Globulin 3.2 (2.5-4.0) gm/dl Albumin/Globulin Ratio 1.0 (0.9-2) Stool Occult Bld Scrn (Negative) Stool H. pylori Ag Diagnostic Findings KUB X-Ray 12/24/20 13:14 KUB CLINICAL HISTORY: Evaluate for obstruction. COMPARISON STUDY: CT of the abdomen and pelvis December 23, 2020. FINDINGS: Note is made of a large amount of stool within the mid to distal sigmoid colon and the rectum. Gas-filled loops of small large bowel are noted. There is no evidence for a bowel obstruction. IMPRESSION: 1. Large amount of stool within the sigmoid colon and rectum. 2. Gas-filled small and large bowel without convincing evidence for a bowel obstruction. ACT 112: Negative or not required by law. Electronically signed by: Casimiro Martínez M.D. 12/24/2020 2:24 PM PG Care Time/CCT Total # of Minutes Spent Total Time Spent with Patient: Total time spent is greater than 50% in coordination of care (as documented) at patient's floor/unit and/or counseling patient: Coding Level of Care Code 24446 Subseq Hosp Care Lvl 3 Diagnoses 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; L97.519 Diabetic ulcer of left foot E11.621; L97.529 Indwelling Hernandez catheter present Z96.0 Cerebral palsy G80.9 Cerebral palsy type: unspecified type UTI (urinary tract infection) T83.511A; N39.0 Encounter type: initial encounter Indwelling urinary catheter type: indwelling urethral catheter Urinary tract infection type: catheter-associated UTI Diabetes E11.40 Diabetes mellitus complication detail: with unspecified neuropathy Diabetes mellitus complication status: with neurologic complications Diabetes mellitus senior living insulin use: without senior living use Diabetes mellitus type: type 2 Anemia D64.9 Anemia type: unspecified type Hyperlipidemia E78.2 Hyperlipidemia type: mixed hyperlipidemia Constipation K59.00 Cellulitis of right leg L03.115 VIKY (acute kidney injury) N17.9 DVT prophylaxis Z29.9 HTN (hypertension) I10 Hypertension type: essential hypertension Hypokalemia E87.6 Leukocytosis D72.829 Metabolic encephalopathy G93.41 Pressure injury of sacral region, stage 2 L89.152 Spina bifida Q05.9 Stage III pressure ulcer of left buttock L89.323 Stage III pressure ulcer of right buttock L89.313 (1) UTI (urinary tract infection) Encounter type: initial encounter Indwelling urinary catheter type: indwelling urethral catheter Urinary tract infection type: catheter-associated UTI Qualified Code(s): T83.511A - Infection and inflammatory reaction due to indwelling urethral catheter, initial encounter; N39.0 - Urinary tract infection, site not specified (2) Diabetes Diabetes mellitus complication detail: with unspecified neuropathy Diabetes mellitus complication status: with neurologic complications Diabetes mellitus senior living insulin use: without senior living use Diabetes mellitus type: type 2 Qualified Code(s): E11.40 - Type 2 diabetes mellitus with diabetic neuropathy, unspecified (3) Anemia Anemia type: unspecified type Qualified Code(s): D64.9 - Anemia, unspecified (4) Cerebral palsy Cerebral palsy type: unspecified type Qualified Code(s): G80.9 - Cerebral palsy, unspecified (5) Hyperlipidemia Hyperlipidemia type: mixed hyperlipidemia Qualified Code(s): E78.2 - Mixed hyperlipidemia (6) HTN (hypertension) Hypertension type: essential hypertension Qualified Code(s): I10 - Essential (primary) hypertension
--- NOTE | 2020-12-24 14:03 | Gastroenterology Progress Note ---
Date of Service December 24, 2020 Assessment & Plan (1) Acute anemia: Plan: EGD in AM for further evaluation of abnormal CT finding of duodenitis Continue Protonix BID at present Transfuse PRN to maintain H/H around 824 (2) Constipation: Plan: Moving his bowel following Miralax Bowel prep Will need bowel regimen with Miralax 17 g by mouth in 8 oz glass of water twice daily moving forward Continue Colace 100 mg by mouth twice daily No plans for colonoscopy at this time. Discussed case with Dr. Pisano Admission and Anticipated Discharge Date Admission Date: December 23, 2020 Subjective Feeling well at present. He did just have a large BM, with some blood noted by nursing staff. He was able to drink the entire Miralax bowel prep, but this is the first BM he has had. He denies any abdominal pain, nausea, vomiting, hematemesis, or other complaints. Review of Systems Constitutional: as per Subjective / HPI Eyes: as per Subjective / HPI Ear, Nose, Mouth, Throat: as per Subjective / HPI Respiratory: as per Subjective / HPI Cardiovascular: as per Subjective / HPI Gastrointestinal: as per Subjective / HPI Musculoskeletal: as per Subjective / HPI Integumentary: as per Subjective / HPI Neurologic: as per Subjective / HPI Psychiatric: as per Subjective / HPI Endocrine: as per Subjective / HPI Hematologic / Lymphatic: as per Subjective / HPI Allergy / Immunological: as per Subjective / HPI Physical Exam Constitutional: WD/WN, vitals as above Respiratory: normal respiratory effort, lungs clear to auscultation Cardiovascular: RRR, no murmur, no edema Gastrointestinal (Abdomen): Inspection/Auscultation: + abdomen distended and normal bowel sounds Percussion/Palpation: abdomen soft; abdomen nontender, no guarding and abdomen not rigid Results & Data Results & Data ([facility]) Vital Signs (Past 12 Hours) Vital Signs Temp Pulse Pulse Resp BP Pulse Ox 12/24/20 11:29 36.5 C 86 20 114/74 96 12/24/20 08:00 94 H 12/24/20 07:25 36.9 C 81 22 121/64 95 12/24/20 03:00 37.2 C 78 19 122/65 97 PG Care Time/CCT Total # of Minutes Spent Total Time Spent with Patient: Total time spent is greater than 50% in coordination of care (as documented) at patient's floor/unit and/or counseling patient: Coding Level of Care Code 72613 Subseq Hosp Care Lvl 3 Diagnoses Acute anemia D64.9 Constipation K59.00
[2020-12-24] MEDS ORDERED: PIPERACILL/TAZOBAC CONSULT ACTIVE PRN (14:05)
[2020-12-24] MEDS ORDERED: PIPERACILLIN/TAZOBACTAM 3.375 GM in DEXTROSE 5% 100 ML IV ONE (14:15)
--- NOTE | 2020-12-24 14:25 | XRay Report ---
KUB CLINICAL HISTORY: Evaluate for obstruction. COMPARISON STUDY: CT of the abdomen and pelvis December 23, 2020. FINDINGS: Note is made of a large amount of stool within the mid to distal sigmoid colon and the rect um. Gas-filled loops of small large bowel are noted. There is no evidence for a bowel obstruction. IMPRESSION: 1. Large amount of stool within the sigmoid colon and rectum. 2. Gas-filled small and large bowel without convincing evidence for a bowel obstruction. ACT 112: Negative or not required by law. Electronically signed by: Casimiro Martínez M.D. 12/24/2020 2:24 PM
[2020-12-24] MEDS: DAPTOmycin 250 MG in SYRINGE 0 ML IV SCH (18:35)
--- NOTE | 2020-12-24 19:37 | Billing Data ---
Date of Service December 24, 2020 Coding Level of Care Code 66882 Initial Inpt Care Lvl 3
[2020-12-24] MEDS ORDERED: Nursing to Pharmacy Communication SCH (20:45)
[2020-12-24] MEDS: PIPERACILLIN/TAZOBACTAM 3.375 GM in DEXTROSE 5% 100 ML IV SCH (20:58)
[2020-12-24] MEDS: NIACIN 500 MG TAB PO SCH (20:58)
[2020-12-24] MEDS: bisacodyL 10 MG SUPP PR SCH (20:58)
[2020-12-25] MEDS: PIPERACILLIN/TAZOBACTAM 3.375 GM in DEXTROSE 5% 100 ML IV SCH (04:10)
[2020-12-25] MEDS: INSULIN ASPART 100 UNITS/ML 3 ML PEN SC SCH ×4 (05:36→21:52)
[2020-12-25] MEDS: DOCUSATE SODIUM 100 MG CAP PO SCH ×2 (09:10→21:50)
[2020-12-25] MEDS: MAGNESIUM OXIDE 400 MG TAB PO SCH (09:10)
[2020-12-25] MEDS: CHOLECALCIFEROL 1,000 UNITS 25 MCG TAB PO SCH (09:11)
[2020-12-25] MEDS: PROPRANOLOL HCL 60 MG LA CAP PO SCH (09:11)
[2020-12-25] MEDS: DOCUSATE SODIUM/SENNA 50/8.6MG TAB PO SCH ×2 (09:11→21:51)
[2020-12-25] MEDS: gemfibroziL 600 MG TAB PO SCH ×2 (09:11→21:51)
[2020-12-25] MEDS: POLYETHYLENE (MIRALAX) 17 GM PACK PO SCH ×2 (09:12→21:51)
[2020-12-25] MEDS: PANTOprazole 40 MG in SYRINGE 0 ML IV SCH ×2 (09:15→21:49)
[2020-12-25] MEDS: FINASTERIDE 5 MG TAB PO SCH (09:16)
[2020-12-25 09:34] LABS: Basophils # (auto) 0.02 K/uL (0-0.2); Basophils % (auto) 0.1 %; Eosinophils % (auto) 3.5 %; Hematocrit (blood only) 27.9 % (42-52); Hemoglobin 8.9 g/dL (14.0-18.0); Immature Granulocytes # (auto) 0.13 K/uL (0.00-0.02); Immature Granulocytes % (auto) 0.9 %; Lymphocytes # (auto) 1.12 K/uL (1.2-3.4); Lymphocytes % (auto) 7.9 %; Mean Corpuscular Hemoglobin 33.5 pg (25-34); Mean Corpuscular Hgb Conc 31.9 g/dL (32-36); Mean Corpuscular Volume 104.9 fL (80-100); Mean Platelet Volume 8.2 fL (7.4-10.4); Monocytes # (auto) 0.91 K/uL (0.11-0.59); Monocytes % (auto) 6.4 %; Neutrophils # (auto) 11.44 K/uL (1.4-6.5); Neutrophils % (auto) 81.2 %; Nucleated RBC # (auto) 0.03 K/uL (0-0); Nucleated RBC % (auto) 0.2 %; Platelet Count 318 K/uL (130-400); RDW Coefficient of Variation 17.8 % (11.5-14.5); RDW Standard Deviation 58.7 fL (36.4-46.3); Red Blood Count 2.66 M/uL (4.7-6.1); White Blood Count 14.12 K/uL (4.8-10.8)
--- NOTE | 2020-12-25 09:34 | History & Physical Bridge Note ---
Date of Service December 25, 2020 History & Physical Bridge Note I have examined the patient, reviewed the History & Physical and in the interval since the performance of the History & Physical I have noted the following changes of clinical significance: Patient reports some diarrhea overnight. No abdominal pain, n/v. Has been kept NPO. AM labs pending. Per nursing, his stools overnight were dark. PE: A&Ox3. Tachycardic. Regular rhythm. Lungs CTA bilaterally. Abdomen soft, hyperactive bowel sounds. Nontender. A/P: Symptomatic anemia and heme positive stool. * NPO for now. * Continue Pantoprazole 40 mg IV BID. * For EGD today with Dr. Galvan. * Further reccs pending results of testing.
[2020-12-25] MEDS: traMADol HCL 50 MG TABLET PO SCH (09:40)
[2020-12-25 09:51] LABS: BUN Creatinine Ratio 20.6 (10-20); Calcium 8.7 mg/dl (8.5-10.1); Creatinine Clr Calc Pharmacy 111.5 ml/min; Est GFR (African American) 117.4 ml/min; Est GFR (Non-African American) 101.3 ml/min; Magnesium 1.8 mg/dl (1.8-2.4); Potassium 3.2 mmol/L (3.5-5.1)
[2020-12-25 10:02] LABS: Phosphorus 2.4 mg/dl (2.5-4.9)
[2020-12-25] MEDS: INSULIN GLARGINE SOLOSTAR 100 UNITS/ML 3 ML PEN SC SCH (10:26)
--- NOTE | 2020-12-25 10:34 | Anesthesiology Consultation ---
Date of Service December 25, 2020 Assessment & Plan (1) Encounter for pre-operative examination: Chart Review Chart Review: Acceptable Risk for Surgery, Patient NOT seen in Pre Admission Testing and ground control approach technician initiated Consults Requested none ASA ASA3 Proposed Anesthesia Anesthesia Type: MAC Risk / Benefits Reviewed With: PT / POA / Parent / Guardian, Accepts Plan and Informed Consent Obtained History Surgery Operation Date: 12/25/20 16:45 Proposed Procedures p Esophagogastroduodenoscopy Dr. Galvan - Jose Galvan MD Height/Weight Height: 5 ft 6 in Weight: 80.2 kg Allergies Allergy/AdvReac Type Severity Reaction Status Date / Time sulfamethoxazole AdvReac Mild Nausea Verified 12/23/20 18:50 [From Bactrim] trimethoprim [From Bactrim] AdvReac Mild Nausea Verified 12/23/20 18:50 Medications Home Medications Medication Instructions Recorded Confirmed Last Taken aspirin 81 mg tablet,delayed 81 mg PO QAM 04/28/18 12/23/20 12/23/20 release (Aspirin Low Dose) blood-glucose meter (White [place] #1 ea 11/05/18 12/11/20 Unknown Verio Meter) cholecalciferol (vitamin D3) 25 3,000 units PO QAM tab 11/05/18 12/23/20 12/23/20 mcg (1,000 unit) tablet magnesium oxide 400 mg (241.3 mg 400 mg PO QAM 11/05/18 12/23/20 12/23/20 magnesium) tablet Wheelchair (Manual) #1 ea 04/01/19 12/11/20 Unknown diaper,brief,adult,disposable #48 ea 06/30/19 12/11/20 Unknown miconazole nitrate 2 % topical 1 appln TOP BID #30 gm 11/29/19 12/22/20 02/10/20 cream metformin 1,000 mg tablet 1,000 mg PO BID 02/10/20 12/23/20 12/23/20 niacin 500 mg tablet (Niacor) 2,500 mg PO HS #150 tab 03/17/20 12/23/20 Unknown finasteride 5 mg tablet 5 mg PO QAM #30 tab 03/31/20 12/23/20 12/23/20 blood sugar diagnostic (ImmuneticsTouch #100 ea 04/10/20 12/11/20 Unknown Ultra Blue Test Strip) gemfibrozil 600 mg tablet 600 mg PO BID #180 tab 06/30/20 12/23/20 12/23/20 furosemide 40 mg tablet 40 mg PO DAILY #90 tab 08/14/20 12/23/20 Unknown polyethylene glycol 3350 17 17 g PO DAILY PRN #119 g 08/25/20 12/23/20 Unknown gram/dose oral powder (Miralax) lisinopril 2.5 mg tablet 2.5 mg PO QAM #90 tab 10/17/20 12/23/20 12/23/20 propranolol 120 mg 120 mg PO DAILY #30 cap 10/19/20 12/23/20 Unknown capsule,extended release 24 hr sennosides 8.6 mg-docusate sodium 1 tab PO BID #60 tab 10/19/20 12/22/20 Unknown 50 mg tablet (Senna with Docusate Sodium) acetic acid 0.25 % irrigation 25 ml IR DIRECTED #1000 ml 11/07/20 12/22/20 Unknown solution miscellaneous medical supply 1 ea MISCELLANEOUS ONCE #1 ea 11/10/20 12/11/20 Unknown docusate sodium 100 mg tablet 100 mg PO BID 12/23/20 12/23/20 12/23/20 doxycycline hyclate 100 mg capsule 100 mg PO BID 12/23/20 12/23/20 Unknown potassium chloride 20 mEq 20 meq PO DAILY 12/23/20 12/23/20 Unknown tablet,extended release tramadol 50 mg tablet 50 mg PO DAILY 12/23/20 12/23/20 Unknown Active Medications Generic Name Dose Route Start Last Admin Trade Name Zelda PRN Reason Stop Dose Admin Bisacodyl 10 mg 12/24/20 21:00 12/24/20 20:58 Bisacodyl 10 Mg Supp OR 01/23/21 20:59 10 mg HS SARAH Administration Docusate Sodium 100 mg 12/23/20 09:00 12/25/20 09:10 Docusate Sodium 100 Mg Cap PO 01/22/21 08:59 100 mg BID SARAH Administration Finasteride 5 mg 12/23/20 09:00 12/25/20 09:16 Finasteride 5 Mg Tab PO 01/22/21 08:59 5 mg QAM SARAH Administration Gemfibrozil 600 mg 12/23/20 09:00 12/25/20 09:11 Gemfibrozil 600 Mg Tab PO 01/22/21 08:59 600 mg BID SARAH Administration Pantoprazole Sodium 40 mg/ 10 mls @ 5 mls/min 12/23/20 09:00 12/25/20 09:15 Syringe IV 01/22/21 08:59 5 mls/min Q12 SARAH Administration Daptomycin 250 mg/ Syringe 5 mls @ 2.5 mls/min 12/23/20 19:30 12/24/20 18:35 IV 12/30/20 19:29 2.5 mls/min Q24H SARAH Administration Protocol Piperacillin Sod/Tazobactam 115 mls @ 28.75 mls/hr 12/24/20 20:00 12/25/20 09:15 Sod 3.375 gm/ Dextrose IV 01/03/21 19:59 Infused Q8H SARAH Infusion Protocol Insulin Aspart 0 units 12/25/20 06:00 12/25/20 05:36 Insulin Aspart 100 Units/Ml 3 Ml Pen SC 01/24/21 05:59 Not Given Q6 SARAH Insulin Glargine 25 units 12/25/20 09:00 12/25/20 10:26 Insulin Glargine Solostar 100 Units/Ml 3 Ml Pen SC 01/24/21 08:59 Not Given QAM SARAH Magnesium Oxide 400 mg 12/23/20 09:00 12/25/20 09:10 Magnesium Oxide 400 Mg Tab PO 01/22/21 08:59 400 mg QAM SARAH Administration Niacin 2,500 mg 12/23/20 21:00 12/24/20 20:58 Niacin 500 Mg Tab PO 01/22/21 20:59 2,500 mg HS SARAH Administration Polyethylene Glycol 17 gm 12/23/20 09:00 12/25/20 09:12 Polyethylene (Miralax) 17 Gm Pack PO 01/22/21 08:59 17 gm BID SARAH Administration Propranolol HCl 120 mg 12/23/20 09:00 12/25/20 09:11 Propranolol Hcl 60 Mg La Cap PO 01/22/21 08:59 120 mg DAILY SARAH Administration Senna/Docusate Sodium 1 tab 12/23/20 09:00 12/25/20 09:11 Docusate Sodium/Senna 50/8.6mg Tab PO 01/22/21 08:59 1 tab BID SARAH Administration Tramadol HCl 50 mg 12/23/20 09:00 12/25/20 09:40 Tramadol Hcl 50 Mg Tablet PO 01/22/21 08:59 Not Given DAILY SARAH Vitamin D 3,000 units 12/23/20 09:00 12/25/20 09:11 Cholecalciferol 1,000 Units 25 Mcg Tab PO 01/22/21 08:59 3,000 units QAM SARAH Administration NPO Date Last Intake of Fluids: 12/25/20 Time Last Intake of Fluids: 08:00 Last Intake of Fluids Comment: SIP OF WATER WITH PILLS Date Last Intake of Solids: 12/21/20 Time Last Intake of Solids: 18:00 Last Intake of Solids Comment: UNABLE TO RECALL EXACT DATE OF LAST SOLIDS Past Medical History Medical History (Updated 12/25/20 @ 10:38 by Gaudencio Sequeira MD) Acute anemia Cellulitis of right lower leg Cerebral palsy Diabetes Heart disease HTN (hypertension) Metabolic encephalopathy Pneumonia Spina bifida Traumatic wound UTI (urinary tract infection) due to urinary indwelling catheter Wound of right foot Past Family History Family History Mother Peripheral vascular disease Other Cancer Diabetes Heart disease Hypertension Denies family history of Ovarian cancer Prostate cancer Myocardial infarction Breast cancer Colorectal cancer Past Surgical History Surgical History No pertinent past surgical history Social History Smoking Status: Former smoker Hx Alcohol Use: No Hx Substance Use: No substance use type: does not use Physical Exam Vital Signs Last Vital Signs Temp 36.6 C 12/25/20 10:20 Pulse 104 H 12/25/20 10:20 Resp 24 12/25/20 10:20 BP 110/84 12/25/20 10:20 Pulse Ox 100 12/25/20 10:20 Testing Laboratory Results 12/25/20 08:51 12/25/20 08:51 PT 11.0 Seconds (9.0-12.0) 12/22/20 23:22 INR 1.1 (0.9-1.1) 12/22/20 23:22 APTT 20.6 Seconds (21.0-31.0) L 12/22/20 23:22 Urine Color Yellow 12/23/20 00:08 Urine Appearance Clear (Clear) 12/23/20 00:08 Urine pH 5.0 (4.5-7.5) 12/23/20 00:08 Ur Specific [place] 1.015 (1.000-1.030) 12/23/20 00:08 Urine Protein Negative (Negative) 12/23/20 00:08 Urine Glucose (UA) Negative (Negative) 12/23/20 00:08 Urine Ketones Trace (Negative) H 12/23/20 00:08 Urine Nitrite Negative (Negative) 12/23/20 00:08 Ur Leukocyte Esterase 2+ (Negative) H 12/23/20 00:08 Urine WBC (Auto) 10-30 /hpf (0-5) H 12/23/20 00:08 Urine RBC (Auto) 0-4 /hpf (0-4) 12/23/20 00:08 U Hyaline Cast (Auto) 5-10 /lpf (0-5) H 12/23/20 00:08 U Epithel Cells (Auto) >30 /lpf (0-5) H 12/23/20 00:08 Urine Bacteria (Auto) 1+ (Negative) H 12/23/20 00:08 Blood Type O Positive 12/23/20 01:26 Antibody Screen NEGATIVE 12/23/20 01:26 12/23/20 00:08 Urine Culture - Final Urine,Clean Catch Escherichia coli Pseudomonas aeruginosa 12/23/20 02:12 Aerobic Blood Culture - Preliminary Blood No growth in Aerobic bottle after 48 hours. Anaerobic Blood Culture - Preliminary No growth in Anaerobic bottle after 48 hours. 12/23/20 01:26 Aerobic Blood Culture - Preliminary Blood No growth in Aerobic bottle after 48 hours. Anaerobic Blood Culture - Preliminary No growth in Anaerobic bottle after 48 hours. 12/25/20 05:27 POC Glucose 80 Electrocardiogram Date: 12/23/20 Test Reason : Blood Pressure : / mmHG Vent. Rate : 080 BPM Atrial Rate : 080 BPM P-R Int : 146 ms QRS Dur : 086 ms QT Int : 388 ms P-R-T Axes : 059 030 037 degrees QTc Int : 447 ms Normal sinus rhythm Low voltage QRS Nonspecific T wave abnormality When compared with ECG of 06-APR-2019 13:45, No significant change was found Confirmed by Gregg Manzanares ([id number]) on 12/23/2020 10:39:38 AM Chest X-Ray Date: 12/23/20 XR chest 1V portable HISTORY: Altered mental status. COMPARISON: Chest 01/05/2019. FINDINGS: There are low lung volumes. Slightly rotated study. The heart is borderline enlarged. No focal lung consolidations to suggest pneumonia. No evidence for pulmonary edema. No pleural effusions. No pneumothorax. IMPRESSION: No acute process.
--- NOTE | 2020-12-25 11:41 | GI REPORT ---
Patient Name: Michael Humphreys Procedure Date: 12/25/2020 11:19 AM Date of : 1955 Admit Type: Inpatient Age: 65 Gender: Male Attending MD: Jose Galvan MD Procedure: Upper GI endoscopy Providers: Jose Galvan MD Referring MD: Dimas Martinez Indications: Unexplained iron deficiency anemia Medicines: Monitored Anesthesia Care Complications: No immediate complications. Estimated blood loss: None. Estimated Blood Loss: Estimated blood loss: none. Procedure: Pre-Anesthesia Assessment: - Prior Anticoagulants: The patient has taken no previous anticoagulant or antiplatelet agents. - ASA Grade Assessment: II - A patient with mild systemic disease. After obtaining informed consent, the endoscope was passed under direct vision. Throughout the procedure, the patient's blood pressure, pulse, and oxygen saturations were monitored continuously. The Endoscope was introduced through the mouth, and advanced to the second part of duodenum. The upper GI endoscopy was accomplished without difficulty. The patient tolerated the procedure well. Findings: LA Grade A (one or more mucosal breaks less than 5 mm, not extending between tops of 2 mucosal folds) esophagitis with no bleeding was found. Biopsies were taken with a cold forceps for histology. Estimated blood loss: none. Diffuse moderate inflammation characterized by erythema was found in the stomach. Biopsies were taken with a cold forceps for Helicobacter pylori testing. Estimated blood loss: none. The duodenal bulb and second portion of the duodenum were normal. Impression: - LA Grade A esophagitis. Biopsied. - Gastritis. Biopsied. - Normal duodenal bulb and second portion of the duodenum. Recommendation: - [facility]. - Advance diet as tolerated today. - Await pathology results. -PPI protonix 40 mg daily -trend H/H, transfuse prn hgb <7 Jose Galvan MD 12/25/2020 11:41:23 AM This report has been signed electronically. Note Initiated On: 12/25/2020 11:19 AM Number of Addenda: 0 I attest to the content of the Intraoperative Record and orders documented therein, exceptions below {[id number]}
[2020-12-25] MEDS ORDERED: LIDOCAINE 2% 2 ML VIAL/AMP(20MG/ML) INFIL ONE (11:44)
[2020-12-25] MEDS ORDERED: PROPOFOL IV EMULSION 10 MG/ML 20 ML VIAL IV ONE (11:44)
--- NOTE | 2020-12-25 11:56 | Anesthesiology Progress Note ---
Date of Service December 25, 2020 Anesthesia Post Procedure Vital Signs Vital Signs: Temp Pulse Pulse Resp BP Pulse Ox 12/25/20 11:55 100 H 18 117/76 100 12/25/20 11:40 108 H 14 131/83 100 12/25/20 10:20 36.6 C 104 H 24 110/84 100 12/25/20 08:33 36.4 C L 101 H 20 120/79 99 12/25/20 07:10 47 L 12/25/20 04:04 36.6 C 68 18 110/72 94 12/25/20 00:44 69 12/24/20 23:21 36.3 C L 69 20 114/68 98 12/24/20 19:36 36.5 C 68 18 135/81 98 12/24/20 18:33 36.4 C L 69 20 113/73 98 12/24/20 15:29 36.6 C 66 20 132/78 97 12/24/20 15:02 73 Pain Intensity Bilateral Buttock: Pain Intensity: 5 Transfer of Care Handoff Completed per policy Notes Mental Status: alert / awake / arousable and participated in evaluation Patient Amnestic to Procedure: Yes Nausea / Vomiting: adequately controlled Pain: adequately controlled Airway Patency, RR, SpO2: stable & adequate BP & HR: stable & adequate Hydration State: stable & adequate Anesthetic Complications: no major complications apparent and Pt Satisfied with anesthetic care
[2020-12-25] MEDS: POTASSIUM CHLORIDE / WTR 10 MEQ/100 ML PLCT IV SCH ×3 (12:28→15:47)
--- NOTE | 2020-12-25 14:44 | Hospitalist Progress Note ---
Date of Service December 25, 2020 Assessment & Plan (1) Anemia: Plan: Patient presenting with complaints of generalized fatigue and weakness, laboratory findings with a hemoglobin of 5.5 Hemoglobin was 11.2 on 12/11 and then dropped down to 5.[address] abdomen/pelvis also was significant fecal load, no retroperitoneal bleed, but did have duodenitis seen. It is notable that he was recently on doxycycline for a wound infection. He finally had a very large bowel movement on 12/24 but did have some black stool and it was Hemoccult positive Now status post 2 units PRBCs and repeat hemoglobin is now improved, trending up to 8.9 from 7.9 He is hemodynamically stable H/H tomorrow MCV is elevated, iron studies normal, B12 and folate normal This is most likely acute blood loss anemia, GI source continue protonix EGD on 12/25 with esophagitis and gastritis, no duodenitis, no ulcers seen, biopsies taken (2) Constipation: Plan: severe, chronic colon distension Received colonoscopy prep overnight 12/23 and had no bowel movements at all until almost noon on 12/24-still severely constipated KUB on 12/24 again shows significant fecal load Continue MiraLAX twice daily and GI recommends bowel prep with MiraLAX Continue senna/docusate twice daily, bisacodyl OK scheduled at bedtime, extra docusate 100 mg p.o. twice daily large BM on 12/24 and then loose stools this morning (3) Metabolic encephalopathy: Plan: Resolved, was secondary to acute kidney injury, severe constipation, and acute blood loss anemia (4) VIKY (acute kidney injury): Plan: VIKY on CKD stage III Creatinine on presentation 2.27, baseline appears to be 0.8. Secondary to mild hypotension and acute blood loss anemia Received IV fluids as well as 2 units PRBCs Creatinine now back to baseline, 0.6 today -Avoid nephrotoxins -Trend BMP Suprapubic catheter is draining very well and he is making plenty of urine (5) UTI (urinary tract infection): Plan: It is unclear if he has a true UTI as he has a chronic indwelling Hernandez catheter, however he did have a leukocytosis upon arrival which is now improving Leukocytosis may be reactive secondary to severe anemia Chronic indwelling catheter urinary tract infection present on admission Patient with chronic indwelling Hernandez catheter, and UA suspicious for infection on presentation. urine culture with E coli and Pseudomonas, some resistance to quinolones in Pseudomonas stop zosyn, change to cefepime for q12 dosing would need 10-14 days d/w his family, would need SNF for treatment (6) Diabetic ulcer of right foot: Plan: Recently seen at wound care center, cultures grew MSSA and was treated with Bactrim and then doxycycline as an outpatient Continue wound care here Daptomycin is being continued for UTI, but would also cover for the Staphylococcus growing in the wound wound cultures collected on 12/22 growing coagulase-negative Staphylococcus-this is a surface culture No cellulitis seen and do not think this needs any further antibiotic therapy (7) Diabetic ulcer of left foot: Plan: Local wound care Wound care nurse consultation (8) Indwelling Hernandez catheter present: Plan: With a history of neurogenic bladder secondary to cerebral palsy Also noted to have BPH Continue finasteride (9) Cerebral palsy: Plan: Noted Supportive care, does not walk and uses wheelchair PT/OT consults anticipate him needing SNF for antibiotics and wound care for next 10-14 days (10) Diabetes: Plan: With some hyperglycemia on 12/24, into the 400s Holding home Metformin Continue NovoLog supplemental insulin and tighten down carbohydrate coverage and correction factor, and increase Lantus to 25 units held Lantus this morning due to NPO status and fasting sugar of 80 give Lantus 10 units now as he will be eating again resume Lantus 25 units tomorrow (11) Hyperlipidemia: Plan: Continue Lopid, niacin (12) Cellulitis of right leg: Plan: As above, resolved (13) HTN (hypertension): Plan: Blood pressures were low on arrival and now normal -Holding lisinopril due to BP still low -Holding furosemide Continued Propranolol 120 mg daily with hold parameters (14) Hypokalemia: Plan: give 30mEq of K riders today (15) Leukocytosis: Plan: As above, could be reactive to severe anemia versus from infection-now much improved with blood transfusion and treatment of infection Follow CBC (16) Pressure injury of sacral region, stage 2: Plan: Wound was recently debrided, does not appear infected Continue wound care, offloading pressure (17) Spina bifida: Plan: Noted (18) 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 He may need extra help or perhaps rehab placement Admission and Anticipated Discharge Date Admission Date: December 23, 2020 Subjective met with patient and his family at the bedside after his EGD updated them on results : esophagitis and gastritis discussed that Hb is stable, actually going up today, no signs of bleeding explained that the loose stool was from Miralax for fecal retention discussed the urine culture results with E coli and Pseudomonas and need for IV Cefepime family says that he lives at home with 4 hours of care givers a day, would want him to go to SNF for treatment I agreed this would be best option no chest pain, no dyspnea, no cough, no fever, he says he is hungry, no nausea, admits to loose stools has tremors from baseline neurologic disease Review of Systems Review of Systems: All systems reviewed & are unremarkable except as noted in Subjective Physical Exam Constitutional: WD/WN, vitals as above + obese; no acute distress Neck: trachea midline, no thyromegaly Respiratory: normal respiratory effort, lungs clear to auscultation Cardiovascular: RRR, no murmur, no edema Gastrointestinal (Abdomen): normal bowel sounds, soft, nontender, no hepatosplenomegaly Musculoskeletal: no cyanosis or clubbing, extremities motor strength 5/5 Skin: + wound (wounds on right great toe, left lateral surface) Neurologic: CN's II-XI intact bilaterally, moves all extremities and awake; no focal motor deficits Motor/Sensory: + tremor Psychiatric: A+Ox3, euthymic affect Results & Data Results & Data ([facility]) Vital Signs (Past 12 Hours) Vital Signs Temp Pulse Pulse Resp BP Pulse Ox 12/25/20 13:40 36.9 C 95 H 20 116/75 92 12/25/20 13:10 36.4 C L 101 H 16 111/74 92 12/25/20 12:41 36.8 C 104 H 16 121/77 96 12/25/20 12:26 37.2 C 104 H 16 130/80 96 12/25/20 12:10 98 H 20 127/79 100 12/25/20 11:55 100 H 18 117/76 100 12/25/20 11:40 108 H 14 131/83 100 12/25/20 10:20 36.6 C 104 H 24 110/84 100 12/25/20 08:33 36.4 C L 101 H 20 120/79 99 12/25/20 07:10 47 L 12/25/20 04:04 36.6 C 68 18 110/72 94 Laboratory Results Laboratory Results - last 24 hr 12/23/20 12/24/20 12/24/20 09:46 16:09 20:57 WBC RBC Hgb Hct MCV MCH MCHC RDW Std Deviation RDW Coeff of Renée Plt Count MPV Immature Gran % (Auto) Neut % (Auto) Lymph % (Auto) [place] % (Auto) Eos % (Auto) Baso % (Auto) Neut # (Auto) Lymph # (Auto) [place] # (Auto) Eos # (Auto) Baso # (Auto) Immature Gran # (Auto) Absolute Nucleated RBC Nucleated RBC % (auto) Sodium Potassium Chloride Carbon Dioxide Anion Gap BUN Creatinine Est Cr Clr Drug Dosing Est GFR ( Amer) Est GFR (Non-Af Amer) BUN/Creatinine Ratio Glucose POC Glucose 91 91 Calcium Phosphorus Magnesium Hepatitis C Ab Screen Neg 12/25/20 12/25/20 12/25/20 05:27 08:51 08:51 WBC 14.12 H RBC 2.66 L Hgb 8.9 L Hct 27.9 L MCV 104.9 H MCH 33.5 MCHC 31.9 L RDW Std Deviation 58.7 H RDW Coeff of Renée 17.8 H Plt Count 318 MPV 8.2 Immature Gran % (Auto) 0.9 Neut % (Auto) 81.2 Lymph % (Auto) 7.9 [place] % (Auto) 6.4 Eos % (Auto) 3.5 Baso % (Auto) 0.1 Neut # (Auto) 11.44 H Lymph # (Auto) 1.12 L [place] # (Auto) 0.91 H Eos # (Auto) 0.50 Baso # (Auto) 0.02 Immature Gran # (Auto) 0.13 H Absolute Nucleated RBC 0.03 H Nucleated RBC % (auto) 0.2 Sodium 138 Potassium 3.2 L Chloride 106 Carbon Dioxide 18 L Anion Gap 15.0 H BUN 13 Creatinine 0.64 Est Cr Clr Drug Dosing 111.5 Est GFR ( Amer) 117.4 Est GFR (Non-Af Amer) 101.3 BUN/Creatinine Ratio 20.6 H Glucose 85 POC Glucose 80 Calcium 8.7 Phosphorus 2.4 L D Magnesium 1.8 Hepatitis C Ab Screen 12/25/20 12:30 WBC RBC Hgb Hct MCV MCH MCHC RDW Std Deviation RDW Coeff of Renée Plt Count MPV Immature Gran % (Auto) Neut % (Auto) Lymph % (Auto) [place] % (Auto) Eos % (Auto) Baso % (Auto) Neut # (Auto) Lymph # (Auto) [place] # (Auto) Eos # (Auto) Baso # (Auto) Immature Gran # (Auto) Absolute Nucleated RBC Nucleated RBC % (auto) Sodium Potassium Chloride Carbon Dioxide Anion Gap BUN Creatinine Est Cr Clr Drug Dosing Est GFR ( Amer) Est GFR (Non-Af Amer) BUN/Creatinine Ratio Glucose POC Glucose 93 Calcium Phosphorus Magnesium Hepatitis C Ab Screen Medications Administered Current Inpatient Medications Bisacodyl (Bisacodyl 10 Mg Supp) 10 mg OK HS SARAH Stop: 01/23/21 20:59 Last Admin: 12/24/20 20:58 Dose: 10 mg Documented by: Dextrose (Dextrose 50% 50 Ml Syringe) 25 - 50 ml IV UD PRN; Protocol PRN Reason: Hypoglycemia Protocol Stop: 01/22/21 04:29 Docusate Sodium (Docusate Sodium 100 Mg Cap) 100 mg PO BID SARAH Stop: 01/22/21 08:59 Last Admin: 12/25/20 09:10 Dose: 100 mg Documented by: Finasteride (Finasteride 5 Mg Tab) 5 mg PO QAM SARAH Stop: 01/22/21 08:59 Last Admin: 12/25/20 09:16 Dose: 5 mg Documented by: Gemfibrozil (Gemfibrozil 600 Mg Tab) 600 mg PO BID SARAH Stop: 01/22/21 08:59 Last Admin: 12/25/20 09:11 Dose: 600 mg Documented by: Glucagon (Glucagon For Inj 1 Mg Vial) 1 mg IM UD PRN; Protocol PRN Reason: Hypoglycemia Protocol Stop: 01/22/21 04:29 Glucose (Glucose 40% Gel 15 Gm Tube) 15 - 30 gm PO UD PRN; Protocol PRN Reason: Hypoglycemia Protocol Stop: 01/22/21 04:29 Glucose (Glucose 10 Tabs/Tube) 4 - 8 tabs PO UD PRN; Protocol PRN Reason: Hypoglycemia Protocol Stop: 01/22/21 04:29 Pantoprazole Sodium 40 mg/ (Syringe) 10 mls @ 5 mls/min IV Q12 SARAH Stop: 01/22/21 08:59 Last Admin: 12/25/20 09:15 Dose: 5 mls/min Documented by: Daptomycin 250 mg/ Syringe 5 mls @ 2.5 mls/min IV Q24H SARAH; Protocol Stop: 12/30/20 19:29 Last Admin: 12/24/20 18:35 Dose: 2.5 mls/min Documented by: Cefepime HCl 2,000 mg/ Syringe 20 mls @ 5 mls/min IV Q12 SARAH; Protocol Stop: 01/04/21 20:59 Insulin Aspart (Insulin Aspart 100 Units/Ml 3 Ml Pen) 0 units SC Q6 SARAH Stop: 01/24/21 05:59 Last Admin: 12/25/20 12:34 Dose: Not Given Documented by: Insulin Glargine (Insulin Glargine Solostar 100 Units/Ml 3 Ml Pen) 25 units SC QAM SARAH Stop: 01/24/21 08:59 Last Admin: 12/25/20 10:26 Dose: Not Given Documented by: Magnesium Hydroxide (Magnesium Hydroxide Susp 30 Ml Udc) 30 ml PO Q6H PRN PRN Reason: Constipation Stop: 01/22/21 03:13 Magnesium Oxide (Magnesium Oxide 400 Mg Tab) 400 mg PO QAM SARAH Stop: 01/22/21 08:59 Last Admin: 12/25/20 09:10 Dose: 400 mg Documented by: Miscellaneous (Carbohydrates For Hypoglycemia ) 15 - 30 gm PO UD PRN PRN Reason: Hypoglycemia Treatment Stop: 01/22/21 04:29 Miscellaneous Information (Daptomycin Consult Active) 1 ea N/A UD PRN PRN Reason: Consult Stop: 01/22/21 18:02 Niacin (Niacin 500 Mg Tab) 2,500 mg PO HS [facility] Stop: 01/22/21 20:59 Last Admin: 12/24/20 20:58 Dose: 2,500 mg Documented by: Polyethylene Glycol (Polyethylene (Miralax) 17 Gm Pack) 17 gm PO BID SARAH Stop: 01/22/21 08:59 Last Admin: 12/25/20 09:12 Dose: 17 gm Documented by: Propranolol HCl (Propranolol Hcl 60 Mg [place]) 120 mg PO DAILY [facility] Stop: 01/22/21 08:59 Last Admin: 12/25/20 09:11 Dose: 120 mg Documented by: Senna/Docusate Sodium (Docusate Sodium/Senna 50/8.6mg Tab) 1 tab PO BID SARAH Stop: 01/22/21 08:59 Last Admin: 12/25/20 09:11 Dose: 1 tab Documented by: Tramadol HCl (Tramadol Hcl 50 Mg Tablet) 50 mg PO DAILY [facility] Stop: 01/22/21 08:59 Last Admin: 12/25/20 09:40 Dose: Not Given Documented by: Vitamin D (Cholecalciferol 1,000 Units 25 Mcg Tab) 3,000 units PO QAM [facility] Stop: 01/22/21 08:59 Last Admin: 12/25/20 09:11 Dose: 3,000 units Documented by: PG Care Time/CCT Total # of Minutes Spent Total Time Spent with Patient: Total time spent is greater than 50% in coordination of care (as documented) at patient's floor/unit and/or counseling patient: Coding Level of Care Code 42048 Subseq Hosp Care Lvl 3 Diagnoses Anemia D64.9 Anemia type: unspecified type Constipation K59.00 Metabolic encephalopathy G93.41 VIKY (acute kidney injury) N17.9 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; L97.519 UTI (urinary tract infection) T83.511A; N39.0 Encounter type: initial encounter Indwelling urinary catheter type: indwelling urethral catheter Urinary tract infection type: catheter-associated UTI Diabetic ulcer of left foot E11.621; L97.529 Indwelling Hernandez catheter present Z96.0 Cerebral palsy G80.9 Cerebral palsy type: unspecified type Diabetes E11.40 Diabetes mellitus complication detail: with unspecified neuropathy Diabetes mellitus complication status: with neurologic complications Diabetes mellitus rodent exterminator insulin use: without fdc use Diabetes mellitus type: type 2 Hyperlipidemia E78.2 Hyperlipidemia type: mixed hyperlipidemia Cellulitis of right leg L03.115 HTN (hypertension) I10 Hypertension type: essential hypertension Hypokalemia E87.6 Leukocytosis D72.829 Pressure injury of sacral region, stage 2 L89.152 Spina bifida Q05.9 Stage III pressure ulcer of left buttock L89.323 Stage III pressure ulcer of right buttock L89.313 DVT prophylaxis Z29.9 (1) UTI (urinary tract infection) Encounter type: initial encounter Indwelling urinary catheter type: indwelling urethral catheter Urinary tract infection type: catheter-associated UTI Qualified Code(s): T83.511A - Infection and inflammatory reaction due to indwelling urethral catheter, initial encounter; N39.0 - Urinary tract infection, site not specified (2) Diabetes Diabetes mellitus complication detail: with unspecified neuropathy Diabetes mellitus complication status: with neurologic complications Diabetes mellitus rodent exterminator insulin use: without rodent exterminator use Diabetes mellitus type: type 2 Qualified Code(s): E11.40 - Type 2 diabetes mellitus with diabetic neuropathy, unspecified (3) Anemia Anemia type: unspecified type Qualified Code(s): D64.9 - Anemia, unspecified (4) Cerebral palsy Cerebral palsy type: unspecified type Qualified Code(s): G80.9 - Cerebral palsy, unspecified (5) Hyperlipidemia Hyperlipidemia type: mixed hyperlipidemia Qualified Code(s): E78.2 - Mixed hyperlipidemia (6) HTN (hypertension) Hypertension type: essential hypertension Qualified Code(s): I10 - Essential (primary) hypertension
[2020-12-25] MEDS ORDERED: INSULIN GLARGINE SOLOSTAR 100 UNITS/ML 3 ML PEN SC STA (15:18)
[2020-12-25] MEDS ORDERED: Nursing to Pharmacy Communication SCH (15:30)
[2020-12-25] MEDS: CEFEPIME 2,000 MG in SYRINGE 0 ML IV SCH (21:49)
[2020-12-25] MEDS: NIACIN 500 MG TAB PO SCH (21:50)
[2020-12-25] MEDS: DAPTOmycin 250 MG in SYRINGE 0 ML IV SCH (21:50)
[2020-12-25] MEDS: bisacodyL 10 MG SUPP PR SCH (21:50)
[2020-12-26 08:27] LABS: Hematocrit (blood only) 28.5 % (42-52); Hemoglobin 9.3 g/dL (14.0-18.0); Mean Corpuscular Hemoglobin 33.3 pg (25-34); Mean Corpuscular Hgb Conc 32.6 g/dL (32-36); Mean Corpuscular Volume 102.2 fL (80-100); Mean Platelet Volume 8.4 fL (7.4-10.4); Platelet Count 321 K/uL (130-400); RDW Coefficient of Variation 17.6 % (11.5-14.5); RDW Standard Deviation 59.9 fL (36.4-46.3); Red Blood Count 2.79 M/uL (4.7-6.1); White Blood Count 12.46 K/uL (4.8-10.8)
[2020-12-26] MEDS: CHOLECALCIFEROL 1,000 UNITS 25 MCG TAB PO SCH (08:42)
[2020-12-26] MEDS: PROPRANOLOL HCL 60 MG LA CAP PO SCH (08:42)
[2020-12-26] MEDS: PANTOprazole 40 MG in SYRINGE 0 ML IV SCH ×2 (08:42→21:11)
[2020-12-26] MEDS: gemfibroziL 600 MG TAB PO SCH ×2 (08:43→21:10)
[2020-12-26] MEDS: MAGNESIUM OXIDE 400 MG TAB PO SCH (08:43)
[2020-12-26] MEDS: FINASTERIDE 5 MG TAB PO SCH (08:43)
[2020-12-26 08:44] LABS: BUN Creatinine Ratio 13.9 (10-20); Calcium 9.1 mg/dl (8.5-10.1); Creatinine Clr Calc Pharmacy 88.2 ml/min; Est GFR (African American) 106.1 ml/min; Est GFR (Non-African American) 91.5 ml/min; Potassium 3.6 mmol/L (3.5-5.1)
[2020-12-26] MEDS: INSULIN ASPART 100 UNITS/ML 3 ML PEN SC SCH ×4 (08:45→21:25)
[2020-12-26] MEDS: DOCUSATE SODIUM/SENNA 50/8.6MG TAB PO SCH ×2 (08:52→21:10)
[2020-12-26] MEDS: traMADol HCL 50 MG TABLET PO SCH (08:53)
[2020-12-26] MEDS: DOCUSATE SODIUM 100 MG CAP PO SCH ×2 (08:53→21:10)
[2020-12-26] MEDS: POLYETHYLENE (MIRALAX) 17 GM PACK PO SCH ×2 (08:53→21:11)
[2020-12-26] MEDS: INSULIN GLARGINE SOLOSTAR 100 UNITS/ML 3 ML PEN SC SCH ×2 (09:00→19:19)
[2020-12-26] MEDS: CEFEPIME 2,000 MG in SYRINGE 0 ML IV SCH ×3 (09:02→21:11)
--- NOTE | 2020-12-26 10:53 | Gastroenterology Progress Note ---
Date of Service December 26, 2020 Assessment & Plan (1) Acute anemia: Plan: * Endoscopy with findings of gastritis and LA Class A reflux esophagitis, therefore continue Pantoprazole 40 mg BID upon discharge. * Will need arranged for outpatient colonoscopy with extended bowel preparation due to history of incomplete colonoscopy in 2010. * Continue supportive care per primary team. Admission and Anticipated Discharge Date Admission Date: December 23, 2020 Supervising Physician Co-Signing Physician Notes Agree with TRENTON Ernst as above Abd: Soft, NT, ND Patient had multiple BM's overnight Continue current management and supportive care Outpatient colonoscopy. Subjective Patient is status post EGD for acute blood loss anemia. No source of GIB on upper endoscopy. H&H remains stable, however. Patient is not reporting any abdominal pain, nausea or vomiting or overt GIB symptoms. Review of Systems Constitutional: no fever and no chills Gastrointestinal: as per Subjective / HPI Results & Data Results & Data ([facility]) Vital Signs (Past 12 Hours) Vital Signs Temp Pulse Pulse Resp BP Pulse Ox 12/26/20 08:16 37.1 C 108 H 18 144/77 H 99 12/26/20 07:12 92 H 12/26/20 03:11 36.4 C L 85 18 125/76 96 12/26/20 00:45 86 12/26/20 00:02 36.6 C 89 18 120/71 99 Laboratory Results Abnormal lab results 12/25/20 12/25/20 12/26/20 Range/Units 16:22 20:25 07:33 WBC (4.8-10.8) K/uL RBC (4.7-6.1) M/uL Hgb (14.0-18.0) g/dL Hct (42-52) % MCV (80-100) fL RDW Std Deviation (36.4-46.3) fL RDW Coeff of Renée (11.5-14.5) % Carbon Dioxide (21-32) mmol/L Anion Gap (3-11) POC Glucose 120 H 176 H 114 H (70-99) mg/dl 12/26/20 12/26/20 Range/Units 08:02 08:02 WBC 12.46 H (4.8-10.8) K/uL RBC 2.79 L (4.7-6.1) M/uL Hgb 9.3 L (14.0-18.0) g/dL Hct 28.5 L (42-52) % MCV 102.2 H (80-100) fL RDW Std Deviation 59.9 H (36.4-46.3) fL RDW Coeff of Renée 17.6 H (11.5-14.5) % Carbon Dioxide 17 L (21-32) mmol/L Anion Gap 14.0 H (3-11) POC Glucose (70-99) mg/dl PG Care Time/CCT Total # of Minutes Spent Total Time Spent with Patient: Total time spent is greater than 50% in coordination of care (as documented) at patient's floor/unit and/or counseling patient: Coding Level of Care Code 24097 Subseq Hosp Care Lvl 3 Diagnoses Acute anemia D64.9
--- NOTE | 2020-12-26 14:10 | Hospitalist Progress Note ---
Date of Service December 26, 2020 Assessment & Plan (1) Anemia: Plan: Patient presenting with complaints of generalized fatigue and weakness, laboratory findings with a hemoglobin of 5.5 Hemoglobin was 11.2 on 12/11 and then dropped down to 5.[address] abdomen/pelvis also was significant fecal load, no retroperitoneal bleed, but did have duodenitis seen. It is notable that he was recently on doxycycline for a wound infection. He finally had a very large bowel movement on 12/24 but did have some black stool and it was Hemoccult positive Now status post 2 units PRBCs and repeat hemoglobin is now improved, trending up to 9.3 today He is hemodynamically stable H/H tomorrow MCV is elevated, iron studies normal, B12 and folate normal This is most likely acute blood loss anemia, GI source continue protonix EGD on 12/25 with esophagitis and gastritis, no duodenitis, no ulcers seen, biopsies taken GI plans for outpatient colonoscopy (2) Constipation: Plan: severe, chronic colon distension Received colonoscopy prep overnight 12/23 and had no bowel movements at all until almost noon on 12/24-still severely constipated KUB on 12/24 again shows significant fecal load Continue MiraLAX twice daily and GI recommends bowel prep with MiraLAX Continue senna/docusate twice daily, bisacodyl HI scheduled at bedtime, extra docusate 100 mg p.o. twice daily large BM on 12/24 and then loose stools past two days hold bowel regimen today (3) Metabolic encephalopathy: Plan: Resolved, was secondary to acute kidney injury, severe constipation, and acute blood loss anemia (4) VIKY (acute kidney injury): Plan: VIKY on CKD stage III Creatinine on presentation 2.27, baseline appears to be 0.8. Secondary to mild hypotension and acute blood loss anemia Received IV fluids as well as 2 units PRBCs Creatinine now back to baseline, 0.8 today -Avoid nephrotoxins -Trend BMP catheter is draining very well and he is making plenty of urine (5) UTI (urinary tract infection): Plan: It is unclear if he has a true UTI as he has a chronic indwelling Hernandez catheter, however he did have a leukocytosis upon arrival which is now improving Leukocytosis may be reactive secondary to severe anemia Chronic indwelling catheter urinary tract infection present on admission Patient with chronic indwelling Hernandez catheter, and UA suspicious for infection on presentation. urine culture with E coli and Pseudomonas, some resistance to quinolones in Pseudomonas stop zosyn, change to cefepime q8 would need 10-14 days d/w his family, would need SNF for treatment, looking into [facility] (6) Diabetic ulcer of right foot: Plan: Recently seen at wound care center, cultures grew MSSA and was treated with Bactrim and then doxycycline as an outpatient foot x-ray of right foot was negative for osteomyelitis Continue wound care here wound cultures collected on 12/22 growing coagulase-negative Staphylococcus-this is a surface culture No cellulitis seen and do not think this needs any further antibiotic therapy (7) Diabetic ulcer of left foot: Plan: Local wound care Wound care nurse consultation left foot x-ray 12/26: no osteomyelitis (8) Indwelling Hernandez catheter present: Plan: With a history of neurogenic bladder secondary to cerebral palsy Also noted to have BPH Continue finasteride (9) Cerebral palsy: Plan: Noted Supportive care, does not walk and uses wheelchair PT/OT consults anticipate him needing SNF for antibiotics and wound care for next 10-14 days (10) Diabetes: Plan: With some hyperglycemia on 12/24, into the 400s Holding home Metformin Continue NovoLog supplemental insulin and tighten down carbohydrate coverage and correction factor, and increase Lantus to 25 units reduced Lantus to 15 units this AM due to fasting sugar in low 100's and poor oral intake (11) Hyperlipidemia: Plan: Continue Lopid, niacin (12) Cellulitis of right leg: Plan: As above, resolved (13) HTN (hypertension): Plan: Blood pressures were low on arrival and now normal -Holding lisinopril due to BP still low -Holding furosemide Continued Propranolol 120 mg daily with hold parameters (14) Hypokalemia: Plan: give 30mEq of K riders today (15) Leukocytosis: Plan: As above, could be reactive to severe anemia versus from infection-now much improved with blood transfusion and treatment of infection Follow CBC (16) Pressure injury of sacral region, stage 2: Plan: Wound was recently debrided, does not appear infected Continue wound care, offloading pressure (17) Spina bifida: Plan: Noted (18) 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 He may need extra help or perhaps rehab placement Admission and Anticipated Discharge Date Admission Date: December 23, 2020 Subjective patient is doing okay today, not great, not eating as much reviewed outpatient charts, wound clinic wanted to get x-ray of left foot - done today, no osteomyelitis seen labs today show WBC stable, Cr and electrolytes stable HR elevated at times on the monitor, up to 130's, ordered EKG but HR down to 90's when it was done, sinus rhythm no chest pain, no palpitations not eating great, lowered Lantus to 15 units this AM, will give 500cc bolus updated his sister at the bedside Review of Systems Review of Systems: All systems reviewed & are unremarkable except as noted in Subjective Physical Exam Constitutional: WD/WN, vitals as above + obese; no acute distress Neck: trachea midline, no thyromegaly Respiratory: normal respiratory effort, lungs clear to auscultation Cardiovascular: RRR, no murmur, no edema Gastrointestinal (Abdomen): normal bowel sounds, soft, nontender, no hepatosplenomegaly Musculoskeletal: no cyanosis or clubbing, extremities motor strength 5/5 Skin: + wound (wounds on right great toe, left lateral surface) Neurologic: CN's II-XI intact bilaterally, moves all extremities and awake; no focal motor deficits Motor/Sensory: + tremor Psychiatric: A+Ox3, euthymic affect Results & Data Results & Data ([facility]) Vital Signs (Past 12 Hours) Vital Signs Temp Pulse Pulse Resp BP Pulse Ox 12/26/20 11:36 36.7 C 126 H 20 114/73 97 12/26/20 08:16 37.1 C 108 H 18 144/77 H 99 12/26/20 07:12 92 H 12/26/20 03:11 36.4 C L 85 18 125/76 96 Laboratory Results Laboratory Results - last 24 hr 12/24/20 12/25/20 12/25/20 13:45 16:22 20:25 WBC RBC Hgb Hct MCV MCH MCHC RDW Std Deviation RDW Coeff of Renée Plt Count MPV Sodium Potassium Chloride Carbon Dioxide Anion Gap BUN Creatinine Est Cr Clr Drug Dosing Est GFR ( Amer) Est GFR (Non-Af Amer) BUN/Creatinine Ratio Glucose POC Glucose 120 H 176 H Calcium Stool H. pylori Ag SEE NOTE 12/26/20 12/26/20 12/26/20 07:33 08:02 08:02 WBC 12.46 H RBC 2.79 L Hgb 9.3 L Hct 28.5 L MCV 102.2 H MCH 33.3 MCHC 32.6 RDW Std Deviation 59.9 H RDW Coeff of Renée 17.6 H Plt Count 321 MPV 8.4 Sodium 137 Potassium 3.6 Chloride 106 Carbon Dioxide 17 L Anion Gap 14.0 H BUN 11 Creatinine 0.82 Est Cr Clr Drug Dosing 88.2 Est GFR ( Amer) 106.1 Est GFR (Non-Af Amer) 91.5 BUN/Creatinine Ratio 13.9 Glucose 95 POC Glucose 114 H Calcium 9.1 Stool H. pylori Ag 12/26/20 11:27 WBC RBC Hgb Hct MCV MCH MCHC RDW Std Deviation RDW Coeff of Renée Plt Count MPV Sodium Potassium Chloride Carbon Dioxide Anion Gap BUN Creatinine Est Cr Clr Drug Dosing Est GFR ( Amer) Est GFR (Non-Af Amer) BUN/Creatinine Ratio Glucose POC Glucose 164 H Calcium Stool H. pylori Ag Medications Administered Current Inpatient Medications Bisacodyl (Bisacodyl 10 Mg Supp) 10 mg HI HS SARAH Stop: 01/23/21 20:59 Last Admin: 12/25/20 21:50 Dose: Not Given Documented by: Dextrose (Dextrose 50% 50 Ml Syringe) 25 - 50 ml IV UD PRN; Protocol PRN Reason: Hypoglycemia Protocol Stop: 01/22/21 04:29 Docusate Sodium (Docusate Sodium 100 Mg Cap) 100 mg PO BID SARAH Stop: 01/22/21 08:59 Last Admin: 12/26/20 08:53 Dose: Not Given Documented by: Finasteride (Finasteride 5 Mg Tab) 5 mg PO QAM SARAH Stop: 01/22/21 08:59 Last Admin: 12/26/20 08:43 Dose: 5 mg Documented by: Gemfibrozil (Gemfibrozil 600 Mg Tab) 600 mg PO BID SARAH Stop: 01/22/21 08:59 Last Admin: 12/26/20 08:43 Dose: 600 mg Documented by: Glucagon (Glucagon For Inj 1 Mg Vial) 1 mg IM UD PRN; Protocol PRN Reason: Hypoglycemia Protocol Stop: 01/22/21 04:29 Glucose (Glucose 40% Gel 15 Gm Tube) 15 - 30 gm PO UD PRN; Protocol PRN Reason: Hypoglycemia Protocol Stop: 01/22/21 04:29 Glucose (Glucose 10 Tabs/Tube) 4 - 8 tabs PO UD PRN; Protocol PRN Reason: Hypoglycemia Protocol Stop: 01/22/21 04:29 Pantoprazole Sodium 40 mg/ (Syringe) 10 mls @ 5 mls/min IV Q12 SARAH Stop: 01/22/21 08:59 Last Admin: 12/26/20 08:42 Dose: 5 mls/min Documented by: Cefepime HCl 2,000 mg/ Syringe 20 mls @ 5 mls/min IV Q8 SARAH; Protocol Stop: 01/05/21 13:59 Insulin Aspart (Insulin Aspart 100 Units/Ml 3 Ml Pen) 0 units SC ACHS [facility] Stop: 01/24/21 16:29 Last Admin: 12/26/20 12:13 Dose: 6 units Documented by: Insulin Glargine (Insulin Glargine Solostar 100 Units/Ml 3 Ml Pen) 15 units SC QAM SARAH Stop: 01/25/21 09:14 Last Admin: 12/26/20 09:00 Dose: 15 units Documented by: Magnesium Hydroxide (Magnesium Hydroxide Susp 30 Ml Udc) 30 ml PO Q6H PRN PRN Reason: Constipation Stop: 01/22/21 03:13 Magnesium Oxide (Magnesium Oxide 400 Mg Tab) 400 mg PO QAM [facility] Stop: 01/22/21 08:59 Last Admin: 12/26/20 08:43 Dose: 400 mg Documented by: Miscellaneous (Carbohydrates For Hypoglycemia ) 15 - 30 gm PO UD PRN PRN Reason: Hypoglycemia Treatment Stop: 01/22/21 04:29 Niacin (Niacin 500 Mg Tab) 2,500 mg PO HS [facility] Stop: 01/22/21 20:59 Last Admin: 12/25/20 21:50 Dose: 2,500 mg Documented by: Polyethylene Glycol (Polyethylene (Miralax) 17 Gm Pack) 17 gm PO BID [facility] Stop: 01/22/21 08:59 Last Admin: 12/26/20 08:53 Dose: Not Given Documented by: Propranolol HCl (Propranolol Hcl 60 Mg [place]) 120 mg PO DAILY [facility] Stop: 01/22/21 08:59 Last Admin: 12/26/20 08:42 Dose: 120 mg Documented by: Senna/Docusate Sodium (Docusate Sodium/Senna 50/8.6mg Tab) 1 tab PO BID SARAH Stop: 01/22/21 08:59 Last Admin: 12/26/20 08:52 Dose: Not Given Documented by: Tramadol HCl (Tramadol Hcl 50 Mg Tablet) 50 mg PO DAILY SARAH Stop: 01/22/21 08:59 Last Admin: 12/26/20 08:53 Dose: Not Given Documented by: Vitamin D (Cholecalciferol 1,000 Units 25 Mcg Tab) 3,000 units PO QAM SARAH Stop: 01/22/21 08:59 Last Admin: 12/26/20 08:42 Dose: 3,000 units Documented by: PG Care Time/CCT Total # of Minutes Spent Total Time Spent with Patient: Total time spent is greater than 50% in coordination of care (as documented) at patient's floor/unit and/or counseling patient: Coding Level of Care Code 86752 Subseq Hosp Care Lvl 3 Diagnoses Anemia D64.9 Anemia type: unspecified type Constipation K59.00 Metabolic encephalopathy G93.41 VIKY (acute kidney injury) N17.9 UTI (urinary tract infection) T83.511A; N39.0 Encounter type: initial encounter Indwelling urinary catheter type: indwelling urethral catheter Urinary tract infection type: catheter-associated UTI 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; L97.519 Diabetic ulcer of left foot E11.621; L97.529 Indwelling Hernandez catheter present Z96.0 Cerebral palsy G80.9 Cerebral palsy type: unspecified type Diabetes E11.40 Diabetes mellitus complication detail: with unspecified neuropathy Diabetes mellitus complication status: with neurologic complications Diabetes mellitus ferry terminal agent insulin use: without ferry terminal agent use Diabetes mellitus type: type 2 Hyperlipidemia E78.2 Hyperlipidemia type: mixed hyperlipidemia Cellulitis of right leg L03.115 HTN (hypertension) I10 Hypertension type: essential hypertension Hypokalemia E87.6 Leukocytosis D72.829 Pressure injury of sacral region, stage 2 L89.152 Spina bifida Q05.9 Stage III pressure ulcer of left buttock L89.323 Stage III pressure ulcer of right buttock L89.313 DVT prophylaxis Z29.9 (1) UTI (urinary tract infection) Encounter type: initial encounter Indwelling urinary catheter type: indwelling urethral catheter Urinary tract infection type: catheter-associated UTI Qualified Code(s): T83.511A - Infection and inflammatory reaction due to indwelling urethral catheter, initial encounter; N39.0 - Urinary tract infection, site not specified (2) Diabetes Diabetes mellitus complication detail: with unspecified neuropathy Diabetes mellitus complication status: with neurologic complications Diabetes mellitus ferry terminal agent insulin use: without ferry terminal agent use Diabetes mellitus type: type 2 Qualified Code(s): E11.40 - Type 2 diabetes mellitus with diabetic neuropathy, unspecified (3) Anemia Anemia type: unspecified type Qualified Code(s): D64.9 - Anemia, unspecified (4) Cerebral palsy Cerebral palsy type: unspecified type Qualified Code(s): G80.9 - Cerebral palsy, unspecified (5) Hyperlipidemia Hyperlipidemia type: mixed hyperlipidemia Qualified Code(s): E78.2 - Mixed hyperlipidemia (6) HTN (hypertension) Hypertension type: essential hypertension Qualified Code(s): I10 - Essential (primary) hypertension
[2020-12-26] MEDS ORDERED: SODIUM CHLORIDE 0.9% 500 ML IV SCH (14:45)
--- NOTE | 2020-12-26 16:02 | XRay Report ---
LEFT FOOT 2 VIEWS CLINICAL HISTORY: First toe infection. FINDINGS: AP and lateral views of the left foot are compared to study dated 11/15/2012. The skeletal st ructures are osteopenic. No fracture is seen. There is no bony erosion or periostitis. Mild osteoarth ritic change is noted at the first metatarsophalangeal joint. Mild degenerative change is also seen t hroughout the midfoot. There is degenerative spurring along the dorsal osteophyte of the tarsal bones . An os trigonum is incidentally noted. Mild soft tissue edema is present throughout the forefoot, gr eatest in the first toe. No radiodense foreign body or subcutaneous gas is seen. IMPRESSION: 1. Soft tissue swelling with no acute bony abnormality identified. 2. Osteopenia and mild degenerative change as above. Electronically signed by: Dick Castro M.D. 12/26/2020 4:01 PM
--- NOTE | 2020-12-26 16:03 | Electrocardiogram Report ---
Test Reason : Blood Pressure : / mmHG Vent. Rate : 093 BPM Atrial Rate : 093 BPM P-R Int : 142 ms QRS Dur : 082 ms QT Int : 332 ms P-R-T Axes : 057 033 044 degrees QTc Int : 412 ms Normal sinus rhythm Normal ECG When compared with ECG of 22-DEC-2020 23:06, No significant change was found Confirmed by Moi Anderson ([id number]) on 12/26/2020 4:03:19 PM Referred By: REFERRED SELF Confirmed By:Moi Anderson
[2020-12-26] MEDS: bisacodyL 10 MG SUPP PR SCH (21:10)
[2020-12-26] MEDS: NIACIN 500 MG TAB PO SCH (21:11)
[2020-12-27] MEDS: CEFEPIME 2,000 MG in SYRINGE 0 ML IV SCH ×3 (06:11→19:37)
[2020-12-27] MEDS: gemfibroziL 600 MG TAB PO SCH ×2 (09:06→21:21)
[2020-12-27] MEDS: CHOLECALCIFEROL 1,000 UNITS 25 MCG TAB PO SCH (09:06)
[2020-12-27] MEDS: FINASTERIDE 5 MG TAB PO SCH (09:06)
[2020-12-27] MEDS: PANTOprazole 40 MG in SYRINGE 0 ML IV SCH ×2 (09:06→19:37)
[2020-12-27] MEDS: DOCUSATE SODIUM/SENNA 50/8.6MG TAB PO SCH ×2 (09:06→19:28)
[2020-12-27] MEDS: PROPRANOLOL HCL 60 MG LA CAP PO SCH (09:06)
[2020-12-27] MEDS: MAGNESIUM OXIDE 400 MG TAB PO SCH (09:06)
[2020-12-27] MEDS: traMADol HCL 50 MG TABLET PO SCH (09:07)
[2020-12-27] MEDS: INSULIN ASPART 100 UNITS/ML 3 ML PEN SC SCH ×4 (09:07→21:21)
[2020-12-27] MEDS: POLYETHYLENE (MIRALAX) 17 GM PACK PO SCH ×2 (09:07→19:28)
[2020-12-27] MEDS: DOCUSATE SODIUM 100 MG CAP PO SCH ×2 (09:07→19:28)
[2020-12-27] MEDS: INSULIN GLARGINE SOLOSTAR 100 UNITS/ML 3 ML PEN SC SCH (09:10)
--- NOTE | 2020-12-27 14:29 | Ultrasound Report ---
ULTRASOUND BILATERAL LOWER EXTREMITY ARTERIAL; ANKLE-BRACHIAL INDICES CLINICAL HISTORY: Lower extremity wounds. COMPARISON STUDY: No priors. TECHNIQUE: Real-time grayscale and color Doppler sonography of the arteries of the right and left low er extremities was performed from the inguinal crease to the foot. Ankle-brachial indices were assess ed. FINDINGS: Ankle-brachial indices: Right brachial pressure measures 123 and left brachial pressure measures 126. Pressures in the right dorsalis pedis measure 99 for an DENNIS of 0.79, and pressures in the right post erior tibial artery measure 97 for an DENNIS of 0.77. Pressures in the left dorsalis pedis measure 103 f or an DENNIS of 0.82, and pressures in the left posterior tibial artery measure 106 for an DENNIS of 0.84. Right lower extremity: Mild atherosclerotic plaque and irregularity seen throughout the arteries of t he right lower extremity. Triphasic arterial waveforms are seen in the right common femoral artery wi th velocities measuring up to 150 cm/s. The profunda femoris artery is patent with velocities measuri ng 100 cm/s. There are triphasic waveforms throughout the superficial femoral and popliteal arteries. Velocities throughout the superficial femoral artery measure up to 142 cm/s, and velocities in the p opliteal artery measure up to 111 cm/s. There is three-vessel runoff to the foot. Velocities within t he calf arteries measure up to 71 cm/s. The dorsalis pedis artery is patent with velocities measuring up to 64 cm/s. Left lower extremity: There is mild atherosclerotic plaque throughout the arteries of the left lower extremity. There are triphasic waveforms in the common femoral artery with velocities measuring up to 132 cm/s. The profundus femoris artery is patent with velocities measuring up to 45 cm/s. There are triphasic waveforms seen throughout the superficial femoral and popliteal arteries. Velocities in the superficial femoral artery measure up to 137 cm/s, and velocities in the popliteal artery measure up to 86 cm/s. There is three-vessel runoff to the foot. Velocities in the calf arteries measure up to 59 cm/s. The dorsalis pedis artery is patent with velocities measuring up to 148 cm/s. IMPRESSION: 1. There is no sonographic evidence of high-grade stenosis or focal vessel cutoff throughout the kaylyn juan manuel of the right or left lower extremities. 2. Ankle brachial indices as above. These may be unreliable due to patient motion during the examinat ion. Dictated: 12/27/2020 11:55 AM Transcribed: 12/27/2020 2:17 PM Joyce [id number] [facility] Electronically signed by: Dick Castro M.D. 12/27/2020 2:27 PM
--- NOTE | 2020-12-27 15:59 | Hospitalist Progress Note ---
Date of Service December 27, 2020 Assessment & Plan (1) Anemia: Plan: Patient presenting with complaints of generalized fatigue and weakness, laboratory findings with a hemoglobin of 5.5 Hemoglobin was 11.2 on 12/11 and then dropped down to 5.[address] abdomen/pelvis also was significant fecal load, no retroperitoneal bleed, but did have duodenitis seen. It is notable that he was recently on doxycycline for a wound infection. He finally had a very large bowel movement on 12/24 but did have some black stool and it was Hemoccult positive Now status post 2 units PRBCs and repeat hemoglobin is now improved, was 9.3 on 12/26 He is hemodynamically stable MCV is elevated, iron studies normal, B12 and folate normal This is most likely acute blood loss anemia, GI source continue protonix EGD on 12/25 with esophagitis and gastritis, no duodenitis, no ulcers seen, biopsies taken GI plans for outpatient colonoscopy (2) Constipation: Plan: severe, chronic colon distension Received colonoscopy prep overnight 12/23 and had no bowel movements at all until almost noon on 12/24-still severely constipated KUB on 12/24 again shows significant fecal load Continue MiraLAX twice daily and GI recommends bowel prep with MiraLAX Continue senna/docusate twice daily, bisacodyl WV scheduled at bedtime, extra docusate 100 mg p.o. twice daily large BM on 12/24 and then loose stools past two days resume bowel regimen tomorrow (3) Metabolic encephalopathy: Plan: Resolved, was secondary to acute kidney injury, severe constipation, and acute blood loss anemia (4) VIKY (acute kidney injury): Plan: VIKY on CKD stage III Creatinine on presentation 2.27, baseline appears to be 0.8. Secondary to mild hypotension and acute blood loss anemia Received IV fluids as well as 2 units PRBCs Creatinine now back to baseline, 0.8 on 12/26 -Avoid nephrotoxins -Trend BMP catheter is draining very well and he is making plenty of urine (5) UTI (urinary tract infection): Plan: catheter associated UTI Patient with chronic indwelling Hernandez catheter, and UA suspicious for infection on presentation. urine culture with E coli and Pseudomonas, some resistance to quinolones in Pseudomonas stop zosyn, change to cefepime q8 would need 10-14 days d/w his family, would need SNF for treatment, looking into [facility], might take a few days (6) Diabetic ulcer of right foot: Plan: Recently seen at wound care center, cultures grew MSSA and was treated with Bactrim and then doxycycline as an outpatient foot x-ray of right foot was negative for osteomyelitis Continue wound care here wound cultures collected on 12/22 growing coagulase-negative Staphylococcus-this is a surface culture No cellulitis seen and do not think this needs any further antibiotic therapy (7) Diabetic ulcer of left foot: Plan: Local wound care Wound care nurse consultation left foot x-ray 12/26: no osteomyelitis arterial doppler: no PAD (8) Indwelling Hernandez catheter present: Plan: With a history of neurogenic bladder secondary to cerebral palsy Also noted to have BPH Continue finasteride (9) Cerebral palsy: Plan: Noted Supportive care, does not walk and uses wheelchair PT/OT consults anticipate him needing SNF for antibiotics and wound care for next 10-14 days (10) Diabetes: Plan: With some hyperglycemia on 12/24, into the 400s Holding home Metformin Continue NovoLog supplemental insulin and tighten down carbohydrate coverage and correction factor, and increase Lantus to 25 units reduced Lantus to 15 units this AM due to fasting sugar in low 100's and poor oral intake (11) Hyperlipidemia: Plan: Continue Lopid, niacin (12) Cellulitis of right leg: Plan: As above, resolved (13) HTN (hypertension): Plan: Blood pressures were low on arrival and now normal -Holding lisinopril due to BP still low -Holding furosemide Continued Propranolol 120 mg daily with hold parameters (14) Hypokalemia: Plan: give 30mEq of K riders today (15) Leukocytosis: Plan: As above, could be reactive to severe anemia versus from infection-now much improved with blood transfusion and treatment of infection Follow CBC (16) Pressure injury of sacral region, stage 2: Plan: Wound was recently debrided, does not appear infected Continue wound care, offloading pressure (17) Spina bifida: Plan: Noted (18) 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 He may need extra help or perhaps rehab placement Admission and Anticipated Discharge Date Admission Date: December 23, 2020 Subjective patient doing okay today had arterial dopplers, no signs of PAD eating better d/w CM, signed paperwork to work on placement at SNF, could be a few days Review of Systems Review of Systems: All systems reviewed & are unremarkable except as noted in Subjective Physical Exam Constitutional: WD/WN, vitals as above + obese; no acute distress Neck: trachea midline, no thyromegaly Respiratory: normal respiratory effort, lungs clear to auscultation Cardiovascular: RRR, no murmur, no edema Gastrointestinal (Abdomen): normal bowel sounds, soft, nontender, no hepatosplenomegaly Musculoskeletal: no cyanosis or clubbing, extremities motor strength 5/5 Skin: + wound (wounds on right great toe, left lateral surface) Neurologic: CN's II-XI intact bilaterally, moves all extremities and awake; no focal motor deficits Motor/Sensory: + tremor Psychiatric: A+Ox3, euthymic affect Results & Data Results & Data ([facility]) Vital Signs (Past 12 Hours) Vital Signs Temp Pulse Pulse Resp BP Pulse Ox 12/27/20 15:16 37.1 C 100 H 20 135/80 93 12/27/20 11:43 36.7 C 125 H 20 128/71 98 12/27/20 07:42 112 H 12/27/20 06:00 36.8 C 112 H 18 126/70 96 Laboratory Results Laboratory Results - last 24 hr 12/27/20 12/27/20 12/27/20 07:25 11:35 16:29 POC Glucose 141 H 194 H 180 H 12/27/20 20:16 POC Glucose 174 H Medications Administered Current Inpatient Medications Bisacodyl (Bisacodyl 10 Mg Supp) 10 mg WV HS SARAH Stop: 01/23/21 20:59 Last Admin: 12/27/20 19:27 Dose: Not Given Documented by: Dextrose (Dextrose 50% 50 Ml Syringe) 25 - 50 ml IV UD PRN; Protocol PRN Reason: Hypoglycemia Protocol Stop: 01/22/21 04:29 Docusate Sodium (Docusate Sodium 100 Mg Cap) 100 mg PO BID SARAH Stop: 01/22/21 08:59 Last Admin: 12/27/20 19:28 Dose: Not Given Documented by: Finasteride (Finasteride 5 Mg Tab) 5 mg PO QAM [facility] Stop: 01/22/21 08:59 Last Admin: 12/27/20 09:06 Dose: 5 mg Documented by: Gemfibrozil (Gemfibrozil 600 Mg Tab) 600 mg PO BID [facility] Stop: 01/22/21 08:59 Last Admin: 12/27/20 21:21 Dose: 600 mg Documented by: Glucagon (Glucagon For Inj 1 Mg Vial) 1 mg IM UD PRN; Protocol PRN Reason: Hypoglycemia Protocol Stop: 01/22/21 04:29 Glucose (Glucose 40% Gel 15 Gm Tube) 15 - 30 gm PO UD PRN; Protocol PRN Reason: Hypoglycemia Protocol Stop: 01/22/21 04:29 Glucose (Glucose 10 Tabs/Tube) 4 - 8 tabs PO UD PRN; Protocol PRN Reason: Hypoglycemia Protocol Stop: 01/22/21 04:29 Pantoprazole Sodium 40 mg/ (Syringe) 10 mls @ 5 mls/min IV Q12 [facility] Stop: 01/22/21 08:59 Last Admin: 12/27/20 19:37 Dose: 5 mls/min Documented by: Cefepime HCl 2,000 mg/ Syringe 20 mls @ 5 mls/min IV Q8 [facility]; Protocol Stop: 01/05/21 13:59 Last Admin: 12/27/20 19:37 Dose: 5 mls/min Documented by: Insulin Aspart (Insulin Aspart 100 Units/Ml 3 Ml Pen) 0 units SC ACHS [facility] Stop: 01/24/21 16:29 Last Admin: 12/27/20 21:21 Dose: 2 units Documented by: Insulin Glargine (Insulin Glargine Solostar 100 Units/Ml 3 Ml Pen) 15 units SC QAM [facility] Stop: 01/25/21 09:14 Last Admin: 12/27/20 09:10 Dose: 15 units Documented by: Magnesium Hydroxide (Magnesium Hydroxide Susp 30 Ml Udc) 30 ml PO Q6H PRN PRN Reason: Constipation Stop: 01/22/21 03:13 Magnesium Oxide (Magnesium Oxide 400 Mg Tab) 400 mg PO QAM [facility] Stop: 01/22/21 08:59 Last Admin: 12/27/20 09:06 Dose: 400 mg Documented by: Miscellaneous (Carbohydrates For Hypoglycemia ) 15 - 30 gm PO UD PRN PRN Reason: Hypoglycemia Treatment Stop: 01/22/21 04:29 Niacin (Niacin 500 Mg Tab) 2,500 mg PO HS SARAH Stop: 01/22/21 20:59 Last Admin: 12/27/20 21:21 Dose: 2,500 mg Documented by: Polyethylene Glycol (Polyethylene (Miralax) 17 Gm Pack) 17 gm PO BID SARAH Stop: 01/22/21 08:59 Last Admin: 12/27/20 19:28 Dose: Not Given Documented by: Propranolol HCl (Propranolol Hcl 60 Mg [place]) 120 mg PO DAILY SARAH Stop: 01/22/21 08:59 Last Admin: 12/27/20 09:06 Dose: 120 mg Documented by: Senna/Docusate Sodium (Docusate Sodium/Senna 50/8.6mg Tab) 1 tab PO BID SARAH Stop: 01/22/21 08:59 Last Admin: 12/27/20 19:28 Dose: Not Given Documented by: Tramadol HCl (Tramadol Hcl 50 Mg Tablet) 50 mg PO DAILY SARAH Stop: 01/22/21 08:59 Last Admin: 12/27/20 09:07 Dose: Not Given Documented by: Vitamin D (Cholecalciferol 1,000 Units 25 Mcg Tab) 3,000 units PO QAM SARAH Stop: 01/22/21 08:59 Last Admin: 12/27/20 09:06 Dose: 3,000 units Documented by: PG Care Time/CCT Total # of Minutes Spent Total Time Spent with Patient: Total time spent is greater than 50% in coordination of care (as documented) at patient's floor/unit and/or counseling patient: Coding Level of Care Code 89749 Subseq Hosp Care Lvl 2 Diagnoses Anemia D64.9 Anemia type: unspecified type Constipation K59.00 Metabolic encephalopathy G93.41 VIKY (acute kidney injury) N17.9 UTI (urinary tract infection) T83.511A; N39.0 Encounter type: initial encounter Indwelling urinary catheter type: indwelling urethral catheter Urinary tract infection type: catheter-associated UTI 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; L97.519 Diabetic ulcer of left foot E11.621; L97.529 Indwelling Hernandez catheter present Z96.0 Cerebral palsy G80.9 Cerebral palsy type: unspecified type Diabetes E11.40 Diabetes mellitus complication detail: with unspecified neuropathy Diabetes mellitus complication status: with neurologic complications Diabetes mellitus regional intermodal truck driver insulin use: without regional intermodal truck driver use Diabetes mellitus type: type 2 Hyperlipidemia E78.2 Hyperlipidemia type: mixed hyperlipidemia Cellulitis of right leg L03.115 HTN (hypertension) I10 Hypertension type: essential hypertension Hypokalemia E87.6 Leukocytosis D72.829 Pressure injury of sacral region, stage 2 L89.152 Spina bifida Q05.9 Stage III pressure ulcer of left buttock L89.323 Stage III pressure ulcer of right buttock L89.313 DVT prophylaxis Z29.9 (1) UTI (urinary tract infection) Encounter type: initial encounter Indwelling urinary catheter type: indwelling urethral catheter Urinary tract infection type: catheter-associated UTI Qualified Code(s): T83.511A - Infection and inflammatory reaction due to indwelling urethral catheter, initial encounter; N39.0 - Urinary tract infection, site not specified (2) Diabetes Diabetes mellitus complication detail: with unspecified neuropathy Diabetes mellitus complication status: with neurologic complications Diabetes mellitus regional intermodal truck driver insulin use: without intermediate use Diabetes mellitus type: type 2 Qualified Code(s): E11.40 - Type 2 diabetes mellitus with diabetic neuropathy, unspecified (3) Anemia Anemia type: unspecified type Qualified Code(s): D64.9 - Anemia, unspecified (4) Cerebral palsy Cerebral palsy type: unspecified type Qualified Code(s): G80.9 - Cerebral palsy, unspecified (5) Hyperlipidemia Hyperlipidemia type: mixed hyperlipidemia Qualified Code(s): E78.2 - Mixed hyperlipidemia (6) HTN (hypertension) Hypertension type: essential hypertension Qualified Code(s): I10 - Essential (primary) hypertension
[2020-12-27] MEDS: bisacodyL 10 MG SUPP PR SCH (19:27)
[2020-12-27] MEDS: NIACIN 500 MG TAB PO SCH (21:21)
[2020-12-28] MEDS: CEFEPIME 2,000 MG in SYRINGE 0 ML IV SCH ×3 (05:54→22:18)
[2020-12-28 08:25] LABS: Basophils # (auto) 0.01 K/uL (0-0.2); Basophils % (auto) 0.1 %; Eosinophils # (auto) 0.27 K/uL (0-0.5); Eosinophils % (auto) 2.9 %; Hematocrit (blood only) 24.3 % (42-52); Immature Granulocytes # (auto) 0.04 K/uL (0.00-0.02); Immature Granulocytes % (auto) 0.4 %; Lymphocytes # (auto) 1.27 K/uL (1.2-3.4); Lymphocytes % (auto) 13.7 %; Mean Corpuscular Hemoglobin 33.5 pg (25-34); Mean Corpuscular Hgb Conc 32.9 g/dL (32-36); Mean Corpuscular Volume 101.7 fL (80-100); Mean Platelet Volume 8.2 fL (7.4-10.4); Monocytes # (auto) 0.64 K/uL (0.11-0.59); Monocytes % (auto) 6.9 %; Neutrophils # (auto) 7.01 K/uL (1.4-6.5); Platelet Count 226 K/uL (130-400); RDW Coefficient of Variation 16.9 % (11.5-14.5); RDW Standard Deviation 60.4 fL (36.4-46.3); Red Blood Count 2.39 M/uL (4.7-6.1); White Blood Count 9.24 K/uL (4.8-10.8)
[2020-12-28 08:41] LABS: BUN Creatinine Ratio 13.1 (10-20); Creatinine Clr Calc Pharmacy 98.5 ml/min; Est GFR (African American) 112.5 ml/min; Est GFR (Non-African American) 97.1 ml/min; Potassium 3.3 mmol/L (3.5-5.1)
[2020-12-28] MEDS: INSULIN ASPART 100 UNITS/ML 3 ML PEN SC SCH ×4 (08:47→20:27)
[2020-12-28] MEDS: FINASTERIDE 5 MG TAB PO SCH (08:52)
[2020-12-28] MEDS: PROPRANOLOL HCL 60 MG LA CAP PO SCH (08:52)
[2020-12-28] MEDS: MAGNESIUM OXIDE 400 MG TAB PO SCH (08:52)
[2020-12-28] MEDS: CHOLECALCIFEROL 1,000 UNITS 25 MCG TAB PO SCH (08:53)
[2020-12-28] MEDS: DOCUSATE SODIUM/SENNA 50/8.6MG TAB PO SCH ×2 (09:01→21:08)
[2020-12-28] MEDS: gemfibroziL 600 MG TAB PO SCH ×2 (09:02→20:23)
[2020-12-28] MEDS: DOCUSATE SODIUM 100 MG CAP PO SCH ×2 (09:02→21:08)
[2020-12-28] MEDS: POLYETHYLENE (MIRALAX) 17 GM PACK PO SCH ×2 (09:02→21:08)
[2020-12-28] MEDS: traMADol HCL 50 MG TABLET PO SCH (09:20)
[2020-12-28] MEDS: PANTOprazole 40 MG in SYRINGE 0 ML IV SCH (09:20)
[2020-12-28] MEDS: INSULIN GLARGINE SOLOSTAR 100 UNITS/ML 3 ML PEN SC SCH (09:21)
[2020-12-28] MEDS: POTASSIUM CHLORIDE CRTAB 20 MEQ TABCR PO SCH ×2 (12:46→20:22)
[2020-12-28 14:57] LABS: Hematocrit (blood only) 24.5 % (42-52); Hemoglobin 8.2 g/dL (14.0-18.0)
--- NOTE | 2020-12-28 15:40 | Hospitalist Progress Note ---
Date of Service December 28, 2020 Assessment & Plan (1) Anemia: Plan: Patient presenting with complaints of generalized fatigue and weakness, laboratory findings with a hemoglobin of 5.5 Hemoglobin was 11.2 on 12/11 and then dropped down to 5.[address] abdomen/pelvis also was significant fecal load, no retroperitoneal bleed, but did have duodenitis seen. It is notable that he was recently on doxycycline for a wound infection. He finally had a very large bowel movement on 12/24 but did have some black stool and it was Hemoccult positive Now status post 2 units PRBCs and repeat hemoglobin is now improved, was 9.3 on 12/26 He is hemodynamically stable MCV is elevated, iron studies normal, B12 and folate normal This is most likely acute blood loss anemia, GI source continue protonix EGD on 12/25 with esophagitis and gastritis, no duodenitis, no ulcers seen, biopsies taken GI plans for outpatient colonoscopy H/H dropped to 8.0, repeat 8.2, no signs of bleeding will check H/H tomorrow (2) Constipation: Plan: severe, chronic colon distension Received colonoscopy prep overnight 12/23 and had no bowel movements at all until almost noon on 12/24-still severely constipated KUB on 12/24 again shows significant fecal load Continue MiraLAX twice daily and GI recommends bowel prep with MiraLAX Continue senna/docusate twice daily, bisacodyl TX scheduled at bedtime, extra docusate 100 mg p.o. twice daily large BM on 12/24 and then loose stools past two days resume bowel regimen (3) Metabolic encephalopathy: Plan: Resolved, was secondary to acute kidney injury, severe constipation, and acute blood loss anemia (4) VIKY (acute kidney injury): Plan: VIKY on CKD stage III Creatinine on presentation 2.27, baseline appears to be 0.8. Secondary to mild hypotension and acute blood loss anemia Received IV fluids as well as 2 units PRBCs Creatinine now back to baseline, 0.8 on 12/26 -Avoid nephrotoxins -Trend BMP catheter is draining very well and he is making plenty of urine (5) UTI (urinary tract infection): Plan: catheter associated UTI Patient with chronic indwelling Hernandez catheter, and UA suspicious for infection on presentation. urine culture with E coli and Pseudomonas, some resistance to quinolones in Pseudomonas stop zosyn, change to cefepime q8 would need 10-14 days d/w his family, would need SNF for treatment, looking into [facility], might take a few days (6) Diabetic ulcer of right foot: Plan: Recently seen at wound care center, cultures grew MSSA and was treated with Bactrim and then doxycycline as an outpatient foot x-ray of right foot was negative for osteomyelitis Continue wound care here wound cultures collected on 12/22 growing coagulase-negative Staphylococcus-this is a surface culture No cellulitis seen and do not think this needs any further antibiotic therapy (7) Diabetic ulcer of left foot: Plan: Local wound care Wound care nurse consultation left foot x-ray 12/26: no osteomyelitis arterial doppler: no PAD (8) Indwelling Hernandez catheter present: Plan: With a history of neurogenic bladder secondary to cerebral palsy Also noted to have BPH Continue finasteride (9) Cerebral palsy: Plan: Noted Supportive care, does not walk and uses wheelchair PT/OT consults anticipate him needing SNF for antibiotics and wound care for next 10-14 days (10) Diabetes: Plan: With some hyperglycemia on 12/24, into the 400s Holding home Metformin Continue NovoLog supplemental insulin and tighten down carbohydrate coverage and correction factor, and increase Lantus to 25 units reduced Lantus to 15 units this AM due to fasting sugar in low 100's and poor oral intake (11) Hyperlipidemia: Plan: Continue Lopid, niacin (12) Cellulitis of right leg: Plan: As above, resolved (13) HTN (hypertension): Plan: Blood pressures were low on arrival and now normal -Holding lisinopril due to BP still low -Holding furosemide Continued Propranolol 120 mg daily with hold parameters (14) Hypokalemia: Plan: give 30mEq of K riders today (15) Leukocytosis: Plan: As above, could be reactive to severe anemia versus from infection-now much improved with blood transfusion and treatment of infection Follow CBC (16) Pressure injury of sacral region, stage 2: Plan: Wound was recently debrided, does not appear infected Continue wound care, offloading pressure (17) Spina bifida: Plan: Noted (18) 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 He may need extra help or perhaps rehab placement Admission and Anticipated Discharge Date Admission Date: December 23, 2020 Subjective patient sitting up in a chair, smiling, says he feels great eating and drinking well discussed drop in H/H with him and his sister, no signs of bleeding can give PRBC if drops further no chest pain, no dyspnea, no fever/chills Review of Systems Review of Systems: All systems reviewed & are unremarkable except as noted in Subjective Physical Exam Constitutional: WD/WN, vitals as above + obese; no acute distress Neck: trachea midline, no thyromegaly Respiratory: normal respiratory effort, lungs clear to auscultation Cardiovascular: RRR, no murmur, no edema Gastrointestinal (Abdomen): normal bowel sounds, soft, nontender, no h epatosplenomegaly Musculoskeletal: no cyanosis or clubbing, extremities motor strength 5/5 Skin: + wound (wounds on right great toe, left lateral surface) Neurologic: CN's II-XI intact bilaterally, moves all extremities and awake; no focal motor deficits Motor/Sensory: + tremor Psychiatric: A+Ox3, euthymic affect Results & Data Results & Data ([facility]) Vital Signs (Past 12 Hours) Vital Signs Temp Pulse Pulse Resp BP Pulse Ox 12/28/20 15:11 36.7 C 85 18 98/62 L 99 12/28/20 11:54 36.8 C 92 H 18 125/70 97 12/28/20 07:54 37.0 C 107 H 18 100/59 L 98 12/28/20 03:53 93 H Laboratory Results Laboratory Results - last 24 hr 12/27/20 12/27/20 12/28/20 16:29 20:16 07:49 WBC RBC Hgb Hct MCV MCH MCHC RDW Std Deviation RDW Coeff of Renée Plt Count MPV Immature Gran % (Auto) Neut % (Auto) Lymph % (Auto) Gaines % (Auto) Eos % (Auto) Baso % (Auto) Neut # (Auto) Lymph # (Auto) Gaines # (Auto) Eos # (Auto) Baso # (Auto) Immature Gran # (Auto) Sodium Potassium Chloride Carbon Dioxide Anion Gap BUN Creatinine Est Cr Clr Drug Dosing Est GFR ( Amer) Est GFR (Non-Af Amer) BUN/Creatinine Ratio Glucose POC Glucose 180 H 174 H 182 H Calcium 12/28/20 12/28/20 12/28/20 07:57 07:57 11:35 WBC 9.24 RBC 2.39 L Hgb 8.0 L Hct 24.3 L MCV 101.7 H MCH 33.5 MCHC 32.9 RDW Std Deviation 60.4 H RDW Coeff of Renée 16.9 H Plt Count 226 MPV 8.2 Immature Gran % (Auto) 0.4 Neut % (Auto) 76.0 Lymph % (Auto) 13.7 Gaines % (Auto) 6.9 Eos % (Auto) 2.9 Baso % (Auto) 0.1 Neut # (Auto) 7.01 H Lymph # (Auto) 1.27 Gaines # (Auto) 0.64 H Eos # (Auto) 0.27 Baso # (Auto) 0.01 Immature Gran # (Auto) 0.04 H Sodium 137 Potassium 3.3 L Chloride 107 Carbon Dioxide 20 L Anion Gap 11.0 BUN 9 Creatinine 0.71 Est Cr Clr Drug Dosing 98.5 Est GFR ( Amer) 112.5 Est GFR (Non-Af Amer) 97.1 BUN/Creatinine Ratio 13.1 Glucose 157 H POC Glucose 300 H Calcium 9.0 12/28/20 14:45 WBC RBC Hgb 8.2 L Hct 24.5 L MCV MCH MCHC RDW Std Deviation RDW Coeff of Renée Plt Count MPV Immature Gran % (Auto) Neut % (Auto) Lymph % (Auto) Gaines % (Auto) Eos % (Auto) Baso % (Auto) Neut # (Auto) Lymph # (Auto) Gaines # (Auto) Eos # (Auto) Baso # (Auto) Immature Gran # (Auto) Sodium Potassium Chloride Carbon Dioxide Anion Gap BUN Creatinine Est Cr Clr Drug Dosing Est GFR ( Amer) Est GFR (Non-Af Amer) BUN/Creatinine Ratio Glucose POC Glucose Calcium Medications Administered Current Inpatient Medications Bisacodyl (Bisacodyl 10 Mg Supp) 10 mg TX HS SARAH Stop: 01/23/21 20:59 Last Admin: 12/27/20 19:27 Dose: Not Given Documented by: Dextrose (Dextrose 50% 50 Ml Syringe) 25 - 50 ml IV UD PRN; Protocol PRN Reason: Hypoglycemia Protocol Stop: 01/22/21 04:29 Docusate Sodium (Docusate Sodium 100 Mg Cap) 100 mg PO BID [facility] Stop: 01/22/21 08:59 Last Admin: 12/28/20 09:02 Dose: Not Given Documented by: Finasteride (Finasteride 5 Mg Tab) 5 mg PO QAM [facility] Stop: 01/22/21 08:59 Last Admin: 12/28/20 08:52 Dose: 5 mg Documented by: Gemfibrozil (Gemfibrozil 600 Mg Tab) 600 mg PO BID SARAH Stop: 01/22/21 08:59 Last Admin: 12/28/20 09:02 Dose: 600 mg Documented by: Glucagon (Glucagon For Inj 1 Mg Vial) 1 mg IM UD PRN; Protocol PRN Reason: Hypoglycemia Protocol Stop: 01/22/21 04:29 Glucose (Glucose 40% Gel 15 Gm Tube) 15 - 30 gm PO UD PRN; Protocol PRN Reason: Hypoglycemia Protocol Stop: 01/22/21 04:29 Glucose (Glucose 10 Tabs/Tube) 4 - 8 tabs PO UD PRN; Protocol PRN Reason: Hypoglycemia Protocol Stop: 01/22/21 04:29 Cefepime HCl 2,000 mg/ Syringe 20 mls @ 5 mls/min IV Q8 SARAH; Protocol Stop: 01/05/21 13:59 Last Admin: 12/28/20 15:17 Dose: 5 mls/min Documented by: Insulin Aspart (Insulin Aspart 100 Units/Ml 3 Ml Pen) 0 units SC ACHS [facility] Stop: 01/24/21 16:29 Last Admin: 12/28/20 12:47 Dose: 14 units Documented by: Insulin Glargine (Insulin Glargine Solostar 100 Units/Ml 3 Ml Pen) 15 units SC QAM [facility] Stop: 01/25/21 09:14 Last Admin: 12/28/20 09:21 Dose: 15 units Documented by: Magnesium Hydroxide (Magnesium Hydroxide Susp 30 Ml Udc) 30 ml PO Q6H PRN PRN Reason: Constipation Stop: 01/22/21 03:13 Magnesium Oxide (Magnesium Oxide 400 Mg Tab) 400 mg PO QAM [facility] Stop: 01/22/21 08:59 Last Admin: 12/28/20 08:52 Dose: 400 mg Documented by: Miscellaneous (Carbohydrates For Hypoglycemia ) 15 - 30 gm PO UD PRN PRN Reason: Hypoglycemia Treatment Stop: 01/22/21 04:29 Niacin (Niacin 500 Mg Tab) 2,500 mg PO HS SARAH Stop: 01/22/21 20:59 Last Admin: 12/27/20 21:21 Dose: 2,500 mg Documented by: Pantoprazole Sodium (Pantoprazole 40 Mg Tab) 40 mg PO BID SARAH Stop: 01/27/21 20:59 Polyethylene Glycol (Polyethylene (Miralax) 17 Gm Pack) 17 gm PO BID SARAH Stop: 01/22/21 08:59 Last Admin: 12/28/20 09:02 Dose: Not Given Documented by: Potassium Chloride (Potassium Chloride Crtab 20 Meq Tabcr) 20 meq PO BID SARAH Stop: 01/27/21 11:44 Last Admin: 12/28/20 12:46 Dose: 20 meq Documented by: Propranolol HCl (Propranolol Hcl 60 Mg [place]) 120 mg PO DAILY SARAH Stop: 01/22/21 08:59 Last Admin: 12/28/20 08:52 Dose: 120 mg Documented by: Senna/Docusate Sodium (Docusate Sodium/Senna 50/8.6mg Tab) 1 tab PO BID SARAH Stop: 01/22/21 08:59 Last Admin: 12/28/20 09:01 Dose: Not Given Documented by: Tramadol HCl (Tramadol Hcl 50 Mg Tablet) 50 mg PO DAILY SARAH Stop: 01/22/21 08:59 Last Admin: 12/28/20 09:20 Dose: 50 mg Documented by: Vitamin D (Cholecalciferol 1,000 Units 25 Mcg Tab) 3,000 units PO QAM SARAH Stop: 01/22/21 08:59 Last Admin: 12/28/20 08:53 Dose: 3,000 units Documented by: PG Care Time/CCT Total # of Minutes Spent Total Time Spent with Patient: Total time spent is greater than 50% in coordination of care (as documented) at patient's floor/unit and/or counseling patient: Coding Level of Care Code 53368 Subseq Hosp Care Lvl 2 Diagnoses Anemia D64.9 Anemia type: unspecified type Constipation K59.00 Metabolic encephalopathy G93.41 VIKY (acute kidney injury) N17.9 UTI (urinary tract infection) T83.511A; N39.0 Encounter type: initial encounter Indwelling urinary catheter type: indwelling urethral catheter Urinary tract infection type: catheter-associated UTI 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; L97.519 Diabetic ulcer of left foot E11.621; L97.529 Indwelling Hernandez catheter present Z96.0 Cerebral palsy G80.9 Cerebral palsy type: unspecified type Diabetes E11.40 Diabetes mellitus complication detail: with unspecified neuropathy Diabetes mellitus complication status: with neurologic complications Diabetes mellitus penitentiary insulin use: without terminal block assembler use Diabetes mellitus type: type 2 Hyperlipidemia E78.2 Hyperlipidemia type: mixed hyperlipidemia Cellulitis of right leg L03.115 HTN (hypertension) I10 Hypertension type: essential hypertension Hypokalemia E87.6 Leukocytosis D72.829 Pressure injury of sacral region, stage 2 L89.152 Spina bifida Q05.9 Stage III pressure ulcer of left buttock L89.323 Stage III pressure ulcer of right buttock L89.313 DVT prophylaxis Z29.9 (1) UTI (urinary tract infection) Encounter type: initial encounter Indwelling urinary catheter type: indwelling urethral catheter Urinary tract infection type: catheter-associated UTI Qualified Code(s): T83.511A - Infection and inflammatory reaction due to indwelling urethral catheter, initial encounter; N39.0 - Urinary tract infection, site not specified (2) Diabetes Diabetes mellitus complication detail: with unspecified neuropathy Diabetes mellitus complication status: with neurologic complications Diabetes mellitus penitentiary insulin use: without penitentiary use Diabetes mellitus type: type 2 Qualified Code(s): E11.40 - Type 2 diabetes mellitus with diabetic neuropathy, unspecified (3) Anemia Anemia type: unspecified type Qualified Code(s): D64.9 - Anemia, unspecified (4) Cerebral palsy Cerebral palsy type: unspecified type Qualified Code(s): G80.9 - Cerebral palsy, unspecified (5) Hyperlipidemia Hyperlipidemia type: mixed hyperlipidemia Qualified Code(s): E78.2 - Mixed hyperlipidemia (6) HTN (hypertension) Hypertension type: essential hypertension Qualified Code(s): I10 - Essential (primary) hypertension
[2020-12-28] MEDS: NIACIN 500 MG TAB PO SCH (20:22)
[2020-12-28] MEDS: PANTOprazole 40 MG TAB PO SCH (20:22)
[2020-12-28] MEDS: bisacodyL 10 MG SUPP PR SCH (21:11)
[2020-12-28] MEDS ORDERED: SODIUM CHLORIDE 0.9% 1000ML 1,000 ML IV ONE (21:45)
[2020-12-28] MEDS: SODIUM CHLORIDE 0.9% 1000ML 1,000 ML IV SCH (23:00)
[2020-12-29] MEDS: CEFEPIME 2,000 MG in SYRINGE 0 ML IV SCH ×3 (05:37→21:36)
--- NOTE | 2020-12-29 06:54 | XRay Report ---
XR KUB/Abdomen 1 view CLINICAL HISTORY: increased abdominal pain COMPARISON STUDY: 12/24/2020 FINDINGS: There is gaseous distention of both large and small bowel loops. There are no transition zo anthony indicate bowel obstruction. There is decreasing colonic stool. IMPRESSION: Persistent gaseous distention of both large and small bowel loops. No convincing evidenc e of bowel obstruction on this conventional radiographic study. ACT 112: Negative or not required by law. Electronically signed by: Tl Evangelista M.D. 12/29/2020 6:53 AM
[2020-12-29] MEDS: INSULIN ASPART 100 UNITS/ML 3 ML PEN SC SCH ×4 (08:37→20:22)
[2020-12-29] MEDS: INSULIN GLARGINE SOLOSTAR 100 UNITS/ML 3 ML PEN SC SCH (08:40)
[2020-12-29] MEDS: SODIUM CHLORIDE 0.9% 1000ML 1,000 ML IV SCH ×2 (08:47→18:12)
[2020-12-29] MEDS: traMADol HCL 50 MG TABLET PO SCH (08:48)
[2020-12-29] MEDS: gemfibroziL 600 MG TAB PO SCH ×2 (08:48→20:20)
[2020-12-29] MEDS: POLYETHYLENE (MIRALAX) 17 GM PACK PO SCH ×2 (08:48→20:20)
[2020-12-29] MEDS: CHOLECALCIFEROL 1,000 UNITS 25 MCG TAB PO SCH (08:48)
[2020-12-29] MEDS: POTASSIUM CHLORIDE CRTAB 20 MEQ TABCR PO SCH ×2 (08:49→20:20)
[2020-12-29] MEDS: MAGNESIUM OXIDE 400 MG TAB PO SCH (08:49)
[2020-12-29] MEDS: FINASTERIDE 5 MG TAB PO SCH (08:50)
[2020-12-29] MEDS: PANTOprazole 40 MG TAB PO SCH ×2 (08:50→20:20)
[2020-12-29] MEDS: bisacodyL 10 MG SUPP PR SCH (08:50)
[2020-12-29] MEDS: DOCUSATE SODIUM/SENNA 50/8.6MG TAB PO SCH ×2 (08:51→20:24)
[2020-12-29] MEDS: PROPRANOLOL HCL 60 MG LA CAP PO SCH (08:51)
[2020-12-29] MEDS: DOCUSATE SODIUM 100 MG CAP PO SCH ×2 (08:51→20:19)
--- NOTE | 2020-12-29 13:46 | Hospitalist Progress Note ---
Date of Service December 29, 2020 Assessment & Plan (1) Anemia: Plan: Patient presenting with complaints of generalized fatigue and weakness, laboratory findings with a hemoglobin of 5.5 Hemoglobin was 11.2 on 12/11 and then dropped down to 5.[address] abdomen/pelvis also was significant fecal load, no retroperitoneal bleed, but did have duodenitis seen. It is notable that he was recently on doxycycline for a wound infection. He finally had a very large bowel movement on 12/24 but did have some black stool and it was Hemoccult positive Now status post 2 units PRBCs and repeat hemoglobin is now improved, was 9.3 on 12/26 He is hemodynamically stable MCV is elevated, iron studies normal, B12 and folate normal This is most likely acute blood loss anemia, GI source continue protonix EGD on 12/25 with esophagitis and gastritis, no duodenitis, no ulcers seen, biopsies taken GI plans for outpatient colonoscopy H/H dropped to 8.0 past two days, no signs of bleeding again, ferritin and iron has been normal when checked in the past repeat H/H tomorrow (2) Constipation: Plan: severe, chronic colon distension Received colonoscopy prep overnight 12/23 and had no bowel movements at all until almost noon on 12/24-still severely constipated KUB on 12/24 again shows significant fecal load Continue MiraLAX twice daily and GI recommends bowel prep with MiraLAX Continue senna/docusate twice daily, bisacodyl MA scheduled at bedtime, extra docusate 100 mg p.o. twice daily stools have been loose, back Miralax to daily (3) Metabolic encephalopathy: Plan: Resolved, was secondary to acute kidney injury, severe constipation, and acute blood loss anemia (4) VIKY (acute kidney injury): Plan: VIKY on CKD stage III Creatinine on presentation 2.27, baseline appears to be 0.8. Secondary to mild hypotension and acute blood loss anemia Received IV fluids as well as 2 units PRBCs Creatinine now back to baseline, 0.8 on 12/26 -Avoid nephrotoxins -Trend BMP catheter is draining very well and he is making plenty of urine (5) UTI (urinary tract infection): Plan: catheter associated UTI Patient with chronic indwelling Hernandez catheter, and UA suspicious for infection on presentation. urine culture with E coli and Pseudomonas, some resistance to quinolones in Pseudomonas stop zosyn, change to cefepime q8 would need 10-14 days d/w his family, would need SNF for treatment, looking into [facility], might take a few days (6) Diabetic ulcer of right foot: Plan: Recently seen at wound care center, cultures grew MSSA and was treated with Bactrim and then doxycycline as an outpatient foot x-ray of right foot was negative for osteomyelitis Continue wound care here wound cultures collected on 12/22 growing coagulase-negative Staphylococcus-this is a surface culture No cellulitis seen and do not think this needs any further antibiotic therapy (7) Diabetic ulcer of left foot: Plan: Local wound care Wound care nurse consultation left foot x-ray 12/26: no osteomyelitis arterial doppler: no PAD (8) Indwelling Hernandez catheter present: Plan: With a history of neurogenic bladder secondary to cerebral palsy Also noted to have BPH Continue finasteride (9) Cerebral palsy: Plan: Noted Supportive care, does not walk and uses wheelchair PT/OT consults anticipate him needing SNF for antibiotics and wound care for next 10-14 days (10) Diabetes: Plan: With some hyperglycemia on 12/24, into the 400s Holding home Metformin Continue NovoLog supplemental insulin and tighten down carbohydrate coverage and correction factor, and increase Lantus to 25 units reduced Lantus to 15 units this AM due to fasting sugar in low 100's and poor o ral intake (11) Hyperlipidemia: Plan: Continue Lopid, niacin (12) Cellulitis of right leg: Plan: As above, resolved (13) HTN (hypertension): Plan: Blood pressures were low on arrival and now normal -Holding lisinopril due to BP still low -Holding furosemide Continued Propranolol 120 mg daily with hold parameters (14) Hypokalemia: Plan: give 30mEq of K riders today (15) Leukocytosis: Plan: As above, could be reactive to severe anemia versus from infection-now much improved with blood transfusion and treatment of infection Follow CBC (16) Pressure injury of sacral region, stage 2: Plan: Wound was recently debrided, does not appear infected Continue wound care, offloading pressure (17) Spina bifida: Plan: Noted (18) 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 He may need extra help or perhaps rehab placement Admission and Anticipated Discharge Date Admission Date: December 23, 2020 Subjective patient c/o cough, it is dry, no dyspnea, asking for cough syrup says his stools are loose again asking if we can reduce miralax to daily his Hb is 8.0 again today reviewed prior labs, Ferritin was normal as was iron Review of Systems Review of Systems: All systems reviewed & are unremarkable except as noted in Subjective Physical Exam Constitutional: WD/WN, vitals as above + obese; no acute distress Neck: trachea midline, no thyromegaly Respiratory: normal respiratory effort, lungs clear to auscultation Cardiovascular: RRR, no murmur, no edema Gastrointestinal (Abdomen): normal bowel sounds, soft, nontender, no hepatosplenomegaly Musculoskeletal: no cyanosis or clubbing, extremities motor strength 5/5 Skin: + wound (wounds on right great toe, left lateral surface) Neurologic: CN's II-XI intact bilaterally, moves all extremities and awake; no focal motor deficits Motor/Sensory: + tremor Psychiatric: A+Ox3, euthymic affect Results & Data Results & Data ([facility]) Vital Signs (Past 12 Hours) Vital Signs Temp Pulse Pulse Resp BP BP Pulse Ox 12/29/20 11:00 36.8 C 101 H 18 117/70 97 12/29/20 09:00 92 H 12/29/20 07:56 36.6 C 101 H 18 101/58 L 95 12/29/20 04:00 36.7 C 86 18 116/71 100 Laboratory Results Laboratory Results - last 24 hr 12/29/20 12/29/20 12/29/20 07:45 11:41 13:07 Hgb Hct POC Glucose 169 H 176 H 143 H 12/29/20 12/29/20 12/29/20 14:12 16:31 20:05 Hgb 8.0 L Hct 23.8 L POC Glucose 130 H 175 H Medications Administered Current Inpatient Medications Bisacodyl (Bisacodyl 10 Mg Supp) 10 mg MA HS SARAH Stop: 01/23/21 20:59 Last Admin: 12/29/20 08:50 Dose: 10 mg Documented by: Dextrose (Dextrose 50% 50 Ml Syringe) 25 - 50 ml IV UD PRN; Protocol PRN Reason: Hypoglycemia Protocol Stop: 01/22/21 04:29 Docusate Sodium (Docusate Sodium 100 Mg Cap) 100 mg PO BID SARAH Stop: 01/22/21 08:59 Last Admin: 12/29/20 20:19 Dose: 100 mg Documented by: Finasteride (Finasteride 5 Mg Tab) 5 mg PO QAM SARAH Stop: 01/22/21 08:59 Last Admin: 12/29/20 08:50 Dose: 5 mg Documented by: Gemfibrozil (Gemfibrozil 600 Mg Tab) 600 mg PO BID SARAH Stop: 01/22/21 08:59 Last Admin: 12/29/20 20:20 Dose: 600 mg Documented by: Glucagon (Glucagon For Inj 1 Mg Vial) 1 mg IM UD PRN; Protocol PRN Reason: Hypoglycemia Protocol Stop: 01/22/21 04:29 Glucose (Glucose 40% Gel 15 Gm Tube) 15 - 30 gm PO UD PRN; Protocol PRN Reason: Hypoglycemia Protocol Stop: 01/22/21 04:29 Glucose (Glucose 10 Tabs/Tube) 4 - 8 tabs PO UD PRN; Protocol PRN Reason: Hypoglycemia Protocol Stop: 01/22/21 04:29 Guaifenesin/Codeine Phosphate (Guaifenesin/Codeine 100mg/10mg 5ml Udc) 5 ml PO Q6H PRN PRN Reason: Cough Stop: 01/28/21 15:03 Cefepime HCl 2,000 mg/ Syringe 20 mls @ 5 mls/min IV Q8 SARAH; Protocol Stop: 01/05/21 13:59 Last Admin: 12/29/20 14:42 Dose: 5 mls/min Documented by: Sodium Chloride (Nss 1000ml) 1,000 mls @ 100 mls/hr IV .Q10H SARAH Stop: 01/27/21 21:44 Last Admin: 12/29/20 18:12 Dose: 100 mls/hr Documented by: Insulin Aspart (Insulin Aspart 100 Units/Ml 3 Ml Pen) 0 units SC ACHS SARAH Stop: 01/24/21 16:29 Last Admin: 12/29/20 20:22 Dose: 2 units Documented by: Insulin Glargine (Insulin Glargine Solostar 100 Units/Ml 3 Ml Pen) 15 units SC QAM SARAH Stop: 01/25/21 09:14 Last Admin: 12/29/20 08:40 Dose: 15 units Documented by: Magnesium Hydroxide (Magnesium Hydroxide Susp 30 Ml Udc) 30 ml PO Q6H PRN PRN Reason: Constipation Stop: 01/22/21 03:13 Magnesium Oxide (Magnesium Oxide 400 Mg Tab) 400 mg PO QAM SARAH Stop: 01/22/21 08:59 Last Admin: 12/29/20 08:49 Dose: 400 mg Documented by: Miscellaneous (Carbohydrates For Hypoglycemia ) 15 - 30 gm PO UD PRN PRN Reason: Hypoglycemia Treatment Stop: 01/22/21 04:29 Niacin (Niacin 500 Mg Tab) 2,500 mg PO HS [facility] Stop: 01/22/21 20:59 Last Admin: 12/29/20 20:21 Dose: 2,500 mg Documented by: Pantoprazole Sodium (Pantoprazole 40 Mg Tab) 40 mg PO BID SARAH Stop: 01/27/21 20:59 Last Admin: 12/29/20 20:20 Dose: 40 mg Documented by: Polyethylene Glycol (Polyethylene (Miralax) 17 Gm Pack) 17 gm PO BID SARAH Stop: 01/22/21 08:59 Last Admin: 12/29/20 20:20 Dose: Not Given Documented by: Potassium Chloride (Potassium Chloride Crtab 20 Meq Tabcr) 20 meq PO BID [facility] Stop: 01/27/21 11:44 Last Admin: 12/29/20 20:20 Dose: 20 meq Documented by: Propranolol HCl (Propranolol Hcl 60 Mg [place]) 120 mg PO DAILY [facility] Stop: 01/22/21 08:59 Last Admin: 12/29/20 08:51 Dose: 120 mg Documented by: Senna/Docusate Sodium (Docusate Sodium/Senna 50/8.6mg Tab) 1 tab PO BID [facility] Stop: 01/22/21 08:59 Last Admin: 12/29/20 20:24 Dose: 1 tab Documented by: Tramadol HCl (Tramadol Hcl 50 Mg Tablet) 50 mg PO DAILY [facility] Stop: 01/22/21 08:59 Last Admin: 12/29/20 08:48 Dose: 50 mg Documented by: Vitamin D (Cholecalciferol 1,000 Units 25 Mcg Tab) 3,000 units PO QAM [facility] Stop: 01/22/21 08:59 Last Admin: 12/29/20 08:48 Dose: 3,000 units Documented by: PG Care Time/CCT Total # of Minutes Spent Total Time Spent with Patient: Total time spent is greater than 50% in coordination of care (as documented) at patient's floor/unit and/or counseling patient: Coding Level of Care Code 92224 Subseq Hosp Care Lvl 2 Diagnoses Anemia D64.9 Anemia type: unspecified type Constipation K59.00 Metabolic encephalopathy G93.41 VIKY (acute kidney injury) N17.9 UTI (urinary tract infection) T83.511A; N39.0 Encounter type: initial encounter Indwelling urinary catheter type: indwelling urethral catheter Urinary tract infection type: catheter-associated UTI 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; L97.519 Diabetic ulcer of left foot E11.621; L97.529 Indwelling Hernandez catheter present Z96.0 Cerebral palsy G80.9 Cerebral palsy type: unspecified type Diabetes E11.40 Diabetes mellitus complication detail: with unspecified neuropathy Diabetes mellitus complication status: with neurologic complications Diabetes mellitus group home insulin use: without intermediate teacher use Diabetes mellitus type: type 2 Hyperlipidemia E78.2 Hyperlipidemia type: mixed hyperlipidemia Cellulitis of right leg L03.115 HTN (hypertension) I10 Hypertension type: essential hypertension Hypokalemia E87.6 Leukocytosis D72.829 Pressure injury of sacral region, stage 2 L89.152 Spina bifida Q05.9 Stage III pressure ulcer of left buttock L89.323 Stage III pressure ulcer of right buttock L89.313 DVT prophylaxis Z29.9 (1) UTI (urinary tract infection) Encounter type: initial encounter Indwelling urinary catheter type: indwelling urethral catheter Urinary tract infection type: catheter-associated UTI Qualified Code(s): T83.511A - Infection and inflammatory reaction due to indwelling urethral catheter, initial encounter; N39.0 - Urinary tract infection, site not specified (2) Diabetes Diabetes mellitus complication detail: with unspecified neuropathy Diabetes mellitus complication status: with neurologic complications Diabetes mellitus group home insulin use: without group home use Diabetes mellitus type: type 2 Qualified Code(s): E11.40 - Type 2 diabetes mellitus with diabetic neuropathy, unspecified (3) Anemia Anemia type: unspecified type Qualified Code(s): D64.9 - Anemia, unspecified (4) Cerebral palsy Cerebral palsy type: unspecified type Qualified Code(s): G80.9 - Cerebral palsy, unspecified (5) Hyperlipidemia Hyperlipidemia type: mixed hyperlipidemia Qualified Code(s): E78.2 - Mixed hyperlipidemia (6) HTN (hypertension) Hypertension type: essential hypertension Qualified Code(s): I10 - Essential (primary) hypertension
[2020-12-29 14:41] LABS: Hematocrit (blood only) 23.8 % (42-52)
[2020-12-29] MEDS: NIACIN 500 MG TAB PO SCH (20:21)
[2020-12-30] MEDS: SODIUM CHLORIDE 0.9% 1000ML 1,000 ML IV SCH (03:14)
[2020-12-30] MEDS: CEFEPIME 2,000 MG in SYRINGE 0 ML IV SCH ×3 (06:01→22:45)
[2020-12-30 06:36] LABS: Hematocrit (blood only) 23.7 % (42-52); Hemoglobin 7.8 g/dL (14.0-18.0); Mean Corpuscular Hemoglobin 33.3 pg (25-34); Mean Corpuscular Hgb Conc 32.9 g/dL (32-36); Mean Corpuscular Volume 101.3 fL (80-100); Mean Platelet Volume 8.6 fL (7.4-10.4); Platelet Count 206 K/uL (130-400); RDW Standard Deviation 60.7 fL (36.4-46.3); Red Blood Count 2.34 M/uL (4.7-6.1); White Blood Count 6.59 K/uL (4.8-10.8)
[2020-12-30 06:57] LABS: BUN Creatinine Ratio 16.4 (10-20); Calcium 8.8 mg/dl (8.5-10.1); Creatinine Clr Calc Pharmacy 114.1 ml/min; Est GFR (Non-African American) 102.7 ml/min; Potassium 3.9 mmol/L (3.5-5.1)
[2020-12-30] MEDS ORDERED: FUROSEMIDE 20 MG in SYRINGE 0 ML IV ONE (09:15)
[2020-12-30] MEDS: INSULIN ASPART 100 UNITS/ML 3 ML PEN SC SCH ×4 (09:50→20:37)
[2020-12-30] MEDS: INSULIN GLARGINE SOLOSTAR 100 UNITS/ML 3 ML PEN SC SCH (09:52)
[2020-12-30] MEDS: POTASSIUM CHLORIDE CRTAB 20 MEQ TABCR PO SCH ×2 (09:53→20:16)
[2020-12-30] MEDS: gemfibroziL 600 MG TAB PO SCH ×2 (09:53→20:15)
[2020-12-30] MEDS: PANTOprazole 40 MG TAB PO SCH ×2 (09:53→20:15)
[2020-12-30] MEDS: MAGNESIUM OXIDE 400 MG TAB PO SCH (09:54)
[2020-12-30] MEDS: POLYETHYLENE (MIRALAX) 17 GM PACK PO SCH (09:54)
[2020-12-30] MEDS: FINASTERIDE 5 MG TAB PO SCH (09:54)
[2020-12-30] MEDS: CHOLECALCIFEROL 1,000 UNITS 25 MCG TAB PO SCH (09:54)
[2020-12-30] MEDS: PROPRANOLOL HCL 60 MG LA CAP PO SCH (09:54)
[2020-12-30] MEDS: SUCRALFATE 1 GM/10 ML UDC PO SCH ×4 (09:57→20:15)
[2020-12-30] MEDS: DOCUSATE SODIUM 100 MG CAP PO SCH ×2 (09:59→20:19)
[2020-12-30] MEDS: traMADol HCL 50 MG TABLET PO SCH (09:59)
[2020-12-30] MEDS: DOCUSATE SODIUM/SENNA 50/8.6MG TAB PO SCH ×2 (10:12→20:20)
--- NOTE | 2020-12-30 14:05 | Hospitalist Progress Note ---
Date of Service December 30, 2020 Assessment & Plan (1) Anemia: Plan: Patient presenting with complaints of generalized fatigue and weakness, laboratory findings with a hemoglobin of 5.5 Hemoglobin was 11.2 on 12/11 and then dropped down to 5.5 here on admission Currently, hemoglobin 7.8 but asymptomatic IV hydration currently on boardsuspect dilutional component Stop IVF Patient with mild bibasilar crackles but is not hypoxic or short of breath. Will give 1 dose of IV Lasix now Patient on PPI therapy for known esophagitis. Add Carafate CT abdomen/pelvis also was significant fecal load, no retroperitoneal bleed, but did have duodenitis seen. It is notable that he was recently on doxycycline for a wound infection. He finally had a very large bowel movement on 12/24 but did have some black stool and it was Hemoccult positive. Per nurse, was having multiple loose stools after bowel prep but this has since improved. Is status post 2 units PRBCs -- mild drop in H/H (likely dilutional component at this time) He is hemodynamically stable and asymptomatic at this point MCV is elevated, iron studies normal, B12 and folate normal This is most likely acute blood loss anemia, GI source EGD on 12/25 with esophagitis and gastritis, no duodenitis, no ulcers seen, biopsies taken GI plans for outpatient colonoscopy H/H dropped to 8.0 past two days, no signs of bleeding again, ferritin and iron has been normal when checked in the past repeat H/H tomorrow (2) Constipation: Plan: Treated and resolved initially with severe, chronic colon distension. Treated and resolved. Bowel regimen on board (3) Metabolic encephalopathy: Plan: Resolved, was secondary to acute kidney injury, severe constipation, and acute blood loss anemia (4) VIKY (acute kidney injury): Plan: VIKY on CKD stage III Creatinine on presentation 2.27, baseline appears to be 0.8. Secondary to mild hypotension and acute blood loss anemia Received IV fluids as well as 2 units PRBCs Creatinine now back to baseline -Avoid nephrotoxins -Trend BMP catheter is draining very well and he is making plenty of urine (5) UTI (urinary tract infection): Plan: catheter associated UTI Patient with chronic indwelling Plunkett catheter, and UA suspicious for infection on presentation. urine culture with E coli and Pseudomonas, some resistance to quinolones in Pseudomonas on cefepime q8 (today makes day #09/20) would need 14 days for complicated UTI involving pseudomonas. may consider gent. bladder irrigation custodial given indwelling plunkett catheter Will consult IV team for UGS IV for bed bug exterminator abx therapy as plan is for SNF looking into [facility], might take a few days case mgmt on board (6) Diabetic ulcer of right foot: Plan: Recently seen at wound care center, cultures grew MSSA and was treated with Bactrim and then doxycycline as an outpatient foot x-ray of right foot was negative for osteomyelitis Continue wound care here wound cultures collected on 12/22 growing coagulase-negative Staphylococcus-this is a surface culture, likely skin contaminant No cellulitis seen and do not think this needs any further antibiotic therapy (7) Diabetic ulcer of left foot: Plan: Local wound care Wound care nurse consultation left foot x-ray 12/26: no osteomyelitis arterial doppler: no PAD (8) Indwelling Plunkett catheter present: Plan: With a history of neurogenic bladder secondary to cerebral palsy Also noted to have BPH Continue finasteride (9) Cerebral palsy: Plan: Noted Supportive care, does not walk and uses wheelchair PT/OT consults anticipate him needing SNF for antibiotics and wound care for next 10-14 days (10) Diabetes: Plan: With some hyperglycemia on 12/24, into the 400s Holding home Metformin Continue NovoLog supplemental insulin and tighten down carbohydrate coverage and correction factor, and increase Lantus to 25 units reduced Lantus to 15 units this AM due to fasting sugar in low 100's and poor oral intake (11) Hyperlipidemia: Plan: Continue Lopid, niacin (12) Cellulitis of right leg: Plan: As above, resolved (13) HTN (hypertension): Plan: Blood pressures were low on arrival and now normal -Holding lisinopril due to BP still low -Holding furosemide Continued Propranolol 120 mg daily with hold parameters (14) Hypokalemia: Plan: reaplced and resolved (15) Leukocytosis: Plan: As above, could be reactive to severe anemia versus from infection-now much improved with blood transfusion and treatment of infection-- resolved Follow CBC (16) Pressure injury of sacral region, stage 2: Plan: Wound was recently debrided, does not appear infected Continue wound care, offloading pressure (17) Spina bifida: Plan: Noted (18) 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 He may need extra help or perhaps rehab placement Plan: will D/W Dr. Cornejo. Further orders as warrented. Admission and Anticipated Discharge Date Admission Date: December 23, 2020 Subjective Patient seen on daily rounds today. He is a 65 y/o WM with a PMHx of DM, Cerebral Palsy Spina Bifida, and a neurogenic bladder with chronic plunkett catheter. He was hospitalized on 12/23 with generalized weakness and found to have ah H/H of 5.5/16.5. He had been on doxycycline for a foot wound and it was thought that this may have precipitated some esophagitis/duodenitis. Did have nonspecific duodenitis seen on imaging. Underwent EGD that showed esophagitis. Started on PPI therapy. Is s/p transfusion 2 units packed RBC's. In addition, did have severe constipation that required multiple bowel preps to clear. That has since resolved. Subsequently, urine culture showing E. coli and Pseudomonas. Currently on cefepime (day #4). [facility] for inpatient rehab and continued antibiotic therapy. H/H today: 7.8 and 23.7. Patient still requiring IV fluids. He denies fevers, chills, chest pain, shortness of breath, orthopnea, PND, abdominal pain, nausea, vomiting. Review of Systems Review of Systems: All systems reviewed and are unremarkable except as noted in HPI and below Denies fevers, chills, headache, nasal congestion, sore throat, cough, chest pain, shortness of breath, abdominal pain, nausea, vomiting, dysuria, hematuria, frequency, skin lesions or rashes. Physical Exam Physical Exam: General: Resting comfortably in his hospital bed. Does not appear ill or toxic Neck: No JVD. Negative hepatojugular reflex Cardiac: Distant heart sounds but regular rate and rhythm Lungs: Speaking full sentences on ambient air. Mild bibasilar crackles Abdomen: Normoactive X4. Soft and nontender in all quadrants. Extremities: No peripheral clubbing cyanosis or edema Neuro: A&O X4 cranial nerves II through XII are grossly intact no focal neuro deficits Results & Data Results & Data ([facility]) Vital Signs (Past 12 Hours) Vital Signs Temp Pulse Resp BP BP Pulse Ox 12/30/20 11:21 36.7 C 132 H 18 119/80 99 12/30/20 07:17 36.4 C L 100 H 18 123/78 97 12/30/20 03:00 36.8 C 96 H 20 125/73 96 Laboratory Results 12/30/20 05:58 12/30/20 05:58 Culture data from 12/23/2020: Urine Culture Final 12/25/20-917 Organism 1 Escherichia coli [place] Count >100,000 CFU/ml Sens Sensitivities to Follow Organism 2 Pseudomonas aeruginosa [place] Count 50,000 CFU/ml Sens Sensitivities to Follow E coli P aerugino RX M.I.C. RX M.I.C. --- --------- --- --------- Amox/Clav S <=8/4 Ampicillin R >16 Amp/Sul S <=8/4 Cefazolin S <=2 Cefepime S <=2 S 4 Ceftazidime S 4 Ceftaz/Avibact S <=4 Ceftriaxone S <=1 Ciprofloxacin R >2 R >2 Ertapenem S <=0.5 Gentamicin S <=4 S <=4 Levofloxacin R >4 R >4 Meropenem S <=1 R >8 Nitrofurantoin S <=32 Tobramycin S <=4 S <=4 Trimeth/Sulfa R >2/38 Pip/Tazo S <=16 S <=16 Gram Stain Final 12/22/20 Gram Stain Result Rare WBCs Seen No Organisms Seen Surface Wound Culture Final 12/24/20-1131 Organism 1 Coag negative Staphylococcus Quantity Few Sens No Sensitivities to Follow Blood Culture Aerobic Final 12/28/20-706 No growth in Aerobic bottle after 5 days. Blood Culture Anaerobic Final 12/28/20-707 No growth in Anaerobic bottle after 5 days. Diagnostic Findings EGD: A. Stomach, biopsy: - Gastric mucosa with mild reactive changes - Negative for intestinal metaplasia, dysplasia and malignancy - Negative for Helicobacter pylori organisms by morphology B. Esophagus, distal, biopsy: - Squamous epithelium with reactive changes and focal active inflammation suggestive of reflux esophagitis - Negative for dysplasia and malignancy - No glandular epithelium identified PG Care Time/CCT Total # of Minutes Spent Total Time Spent with Patient: Total time spent is greater than 50% in coordination of care (as documented) at patient's floor/unit and/or counseling patient: Coding [place] [address] Subseq Hosp Care Lvl 2 Patient Type Established Medical Decision Making Moderate Complexity Diagnoses Anemia D64.9 Anemia type: unspecified type Constipation K59.00 Metabolic encephalopathy G93.41 VIKY (acute kidney injury) N17.9 UTI (urinary tract infection) T83.511A; N39.0 Encounter type: initial encounter Indwelling urinary catheter type: indwelling urethral catheter Urinary tract infection type: catheter-associated UTI 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; L97.519 Diabetic ulcer of left foot E11.621; L97.529 Indwelling Plunkett catheter present Z96.0 Cerebral palsy G80.9 Cerebral palsy type: unspecified type Diabetes E11.40 Diabetes mellitus complication detail: with unspecified neuropathy Diabetes mellitus complication status: with neurologic complications Diabetes mellitus custodial insulin use: without bed bug exterminator use Diabetes mellitus type: type 2 Hyperlipidemia E78.2 Hyperlipidemia type: mixed hyperlipidemia Cellulitis of right leg L03.115 HTN (hypertension) I10 Hypertension type: essential hypertension Hypokalemia E87.6 Leukocytosis D72.829 Pressure injury of sacral region, stage 2 L89.152 Spina bifida Q05.9 Stage III pressure ulcer of left buttock L89.323 Stage III pressure ulcer of right buttock L89.313 DVT prophylaxis Z29.9 (1) UTI (urinary tract infection) Encounter type: initial encounter Indwelling urinary catheter type: indwelling urethral catheter Urinary tract infection type: catheter-associated UTI Qualified Code(s): T83.511A - Infection and inflammatory reaction due to indwelling urethral catheter, initial encounter; N39.0 - Urinary tract infection, site not specified (2) Diabetes Diabetes mellitus complication detail: with unspecified neuropathy Diabetes mellitus complication status: with neurologic complications Diabetes mellitus custodial insulin use: without custodial use Diabetes mellitus type: type 2 Qualified Code(s): E11.40 - Type 2 diabetes mellitus with diabetic neuropathy, unspecified (3) Anemia Anemia type: unspecified type Qualified Code(s): D64.9 - Anemia, unspecified (4) Cerebral palsy Cerebral palsy type: unspecified type Qualified Code(s): G80.9 - Cerebral palsy, unspecified (5) Hyperlipidemia Hyperlipidemia type: mixed hyperlipidemia Qualified Code(s): E78.2 - Mixed hyperlipidemia (6) HTN (hypertension) Hypertension type: essential hypertension Qualified Code(s): I10 - Essential (primary) hypertension
[2020-12-30 14:14] LABS: Hematocrit (blood only) 26.1 % (42-52); Hemoglobin 8.5 g/dL (14.0-18.0)
[2020-12-30] MEDS: NIACIN 500 MG TAB PO SCH (20:16)
[2020-12-30] MEDS: bisacodyL 10 MG SUPP PR SCH (20:20)
[2020-12-31] MEDS: CEFEPIME 2,000 MG in SYRINGE 0 ML IV SCH ×3 (05:39→22:50)
[2020-12-31 06:06] LABS: Basophils # (auto) 0.02 K/uL (0-0.2); Basophils % (auto) 0.4 %; Eosinophils # (auto) 0.18 K/uL (0-0.5); Eosinophils % (auto) 3.2 %; Hematocrit (blood only) 24.7 % (42-52); Hemoglobin 8.1 g/dL (14.0-18.0); Immature Granulocytes # (auto) 0.02 K/uL (0.00-0.02); Immature Granulocytes % (auto) 0.4 %; Lymphocytes # (auto) 1.19 K/uL (1.2-3.4); Mean Corpuscular Hemoglobin 33.2 pg (25-34); Mean Corpuscular Hgb Conc 32.8 g/dL (32-36); Mean Corpuscular Volume 101.2 fL (80-100); Mean Platelet Volume 8.7 fL (7.4-10.4); Monocytes # (auto) 0.54 K/uL (0.11-0.59); Monocytes % (auto) 9.5 %; Neutrophils # (auto) 3.72 K/uL (1.4-6.5); Neutrophils % (auto) 65.5 %; Platelet Count 204 K/uL (130-400); RDW Standard Deviation 61.4 fL (36.4-46.3); Red Blood Count 2.44 M/uL (4.7-6.1); White Blood Count 5.67 K/uL (4.8-10.8)
[2020-12-31 06:36] LABS: BUN Creatinine Ratio 26.2 (10-20); Calcium 9.6 mg/dl (8.5-10.1); Creatinine Clr Calc Pharmacy 104.3 ml/min; Est GFR (Non-African American) 102.7 ml/min; Magnesium 1.9 mg/dl (1.8-2.4)
[2020-12-31] MEDS: POLYETHYLENE (MIRALAX) 17 GM PACK PO SCH (08:51)
[2020-12-31] MEDS: gemfibroziL 600 MG TAB PO SCH ×2 (08:52→20:39)
[2020-12-31] MEDS: CHOLECALCIFEROL 1,000 UNITS 25 MCG TAB PO SCH (08:52)
[2020-12-31] MEDS: PROPRANOLOL HCL 60 MG LA CAP PO SCH (08:53)
[2020-12-31] MEDS: PANTOprazole 40 MG TAB PO SCH ×2 (08:53→20:39)
[2020-12-31] MEDS: FINASTERIDE 5 MG TAB PO SCH (08:53)
[2020-12-31] MEDS: MAGNESIUM OXIDE 400 MG TAB PO SCH (08:53)
[2020-12-31] MEDS: POTASSIUM CHLORIDE CRTAB 20 MEQ TABCR PO SCH ×2 (08:54→20:50)
[2020-12-31] MEDS: SUCRALFATE 1 GM/10 ML UDC PO SCH ×4 (08:55→20:40)
[2020-12-31] MEDS: DOCUSATE SODIUM 100 MG CAP PO SCH ×2 (09:07→20:50)
[2020-12-31] MEDS: DOCUSATE SODIUM/SENNA 50/8.6MG TAB PO SCH ×2 (09:07→20:50)
[2020-12-31] MEDS: INSULIN ASPART 100 UNITS/ML 3 ML PEN SC SCH ×4 (09:12→20:46)
[2020-12-31] MEDS: INSULIN GLARGINE SOLOSTAR 100 UNITS/ML 3 ML PEN SC SCH (09:16)
[2020-12-31] MEDS: traMADol HCL 50 MG TABLET PO SCH (09:18)
--- NOTE | 2020-12-31 15:48 | Hospitalist Progress Note ---
Date of Service December 31, 2020 Assessment & Plan (1) Anemia: Plan: Patient presenting with complaints of generalized fatigue and weakness, laboratory findings with a hemoglobin of 5.5 Hemoglobin was 11.2 on 12/11 and then dropped down to 5.5 here on admission Subtle dropped to 7.8 yesterday but asymptomatic. Thought to be dilutional. IVF stopped and s/p 20 mg IV Lasix X1 Bibasilar crackles resolved H&H stable with slight improvement to 8.1/24.7 Patient on PPI therapy for known esophagitis. Carafate added yesterday. Would continue x [address] abdomen/pelvis also was significant fecal load, no retroperitoneal bleed, but did have duodenitis seen. It is notable that he was recently on doxycycline for a wound infection. He finally had a very large bowel movement on 12/24 but did have some black stool and it was Hemoccult positive. Per nurse, was having multiple loose stools after bowel prep but this has since improved. Is status post 2 units PRBCs -- mild drop in H/H (likely dilutional component at this time) He is hemodynamically stable and asymptomatic at this point MCV is elevated, iron studies normal, B12 and folate normal This is most likely acute blood loss anemia, GI source EGD on 12/25 with esophagitis and gastritis, no duodenitis, no ulcers seen, biopsies taken GI plans for outpatient colonoscopy H/H dropped to 8.0 past two days, no signs of bleeding again, ferritin and iron has been normal when checked in the past repeat H/H tomorrow (2) Constipation: Plan: Treated and resolved initially with severe, chronic colon distension. Treated and resolved. Now with loose stools. Patient on Senokot, Colace, Dulcolax suppositories as needed and daily MiraLAX (which was bumped down from twice daily). Will hold any further MiraLAX for now (3) Metabolic encephalopathy: Plan: Resolved, was secondary to acute kidney injury, severe constipation, and acute blood loss anemia (4) VIKY (acute kidney injury): Plan: VIKY on CKD stage III Creatinine on presentation 2.27, baseline appears to be 0.8. Secondary to mild hypotension and acute blood loss anemia Received IV fluids as well as 2 units PRBCs Creatinine now back to baseline -Avoid nephrotoxins -Trend BMP catheter is draining very well and he is making plenty of urine (5) UTI (urinary tract infection): Plan: catheter associated UTI Patient with chronic indwelling Plunkett catheter, and UA suspicious for infection on presentation. urine culture with E coli and Pseudomonas, some resistance to quinolones in Pseudomonas on cefepime q8 (today makes day #10/20) would need 14 days for complicated UTI involving pseudomonas. may consider gent. bladder irrigation assisted given indwelling plunkett catheter has UGS IV for assisted abx therapy as plan is for SNF looking into [facility], might take a few days case mgmt on board (6) Diabetic ulcer of right foot: Plan: Recently seen at wound care center, cultures grew MSSA and was treated with Bactrim and then doxycycline as an outpatient foot x-ray of right foot was negative for osteomyelitis Continue wound care here wound cultures collected on 12/22 growing coagulase-negative Staphylococcus-this is a surface culture, likely skin contaminant No cellulitis seen and do not think this needs any further antibiotic therapy (7) Diabetic ulcer of left foot: Plan: Local wound care Wound care nurse consultation left foot x-ray 12/26: no osteomyelitis arterial doppler: no PAD (8) Indwelling Plunkett catheter present: Plan: With a history of neurogenic bladder secondary to cerebral palsy Also noted to have BPH Continue finasteride (9) Cerebral palsy: Plan: Noted Supportive care, does not walk and uses wheelchair PT/OT consults anticipate him needing SNF for antibiotics and wound care for next 10-14 days (10) Diabetes: Plan: With some hyperglycemia on 12/24, into the 400s Holding home Metformin Continue NovoLog supplemental insulin and tighten down carbohydrate coverage and correction factor, and increase Lantus to 25 units reduced Lantus to 15 units this AM due to fasting sugar in low 100's and poor oral intake (11) Hyperlipidemia: Plan: Continue Lopid, niacin (12) Cellulitis of right leg: Plan: As above, resolved (13) HTN (hypertension): Plan: Blood pressures were low on arrival and now normal -Holding lisinopril due to BP still low -Holding furosemide Continued Propranolol 120 mg daily with hold parameters (14) Hypokalemia: Plan: replaced and resolved (15) Leukocytosis: Plan: As above, could be reactive to severe anemia versus from infection-now much improved with blood transfusion and treatment of infection-- resolved Follow CBC (16) Pressure injury of sacral region, stage 2: Plan: Wound was recently debrided, does not appear infected Continue wound care, offloading pressure (17) Spina bifida: Plan: Noted (18) Stage III pressure ulcer of left buttock: Plan: As above, bilateral sacral decubitus (19) Stage III pressure ulcer of right buttock: (20) DVT prophylaxis: Plan: Hold anticoagulation due to suspected GI bleeding Disposition-continued stay,, PT/OT consultations placed, he lives alone and has caregivers 4 hours/day. He may need extra help or perhaps rehab placement Plan: will D/W Dr. Cornejo. Further orders as warrented. Admission and Anticipated Discharge Date Admission Date: December 23, 2020 Subjective Patient seen on daily rounds today. Only complaint is persistent loose stools. Is on a complex bowel regimen as he had significant stool burden initially. Remains on IV cefepime (day #5/) for E. coli/Pseudomonas UTI UGS IV placed yesterday Did have episode of tachycardia reported in the computer of 130 yesterday. I did verify with the nurse that this was not sustained. Apparently student nurse obtained vital signs after patient was maneuvered from the bedside commode and after getting ultrasound-guided IV. It was documented as 130 but nurse rechecked and it was in the 80s. Has been 80s to 90s since. H&H stable. Did have 1 dose of IV Lasix yesterday for bibasilar crackles. Was receiving IV fluids which have since been stopped. Small drop in hemoglobin was thought to be dilutional. 8.1 today. Fluid blanace -3L ovenight Patient awaiting placement to halfway facility for continued IV antibiotic therapy and rehab. Unfortunately, patient has a past history of psychiatric issues and is considered a target and needs to be assessed by the office of aging. Otherwise, patient denies fevers, chills, chest pain, shortness of breath, abdominal pain, nausea or vomiting. Nursing voices no complaints or concerns. Review of Systems Review of Systems: All systems reviewed and are unremarkable except as noted in HPI and below Denies fevers, chills, headache, nasal congestion, sore throat, cough, chest pain, shortness of breath, abdominal pain, nausea, vomiting, dysuria, hematuria, frequency, skin lesions or rashes. Physical Exam Physical Exam: General: Resting comfortably in his hospital bed. Does not appear ill or toxic Neck: No JVD. Negative hepatojugular reflex Cardiac: Distant heart sounds but regular rate and rhythm Lungs: Speaking full sentences on ambient air. No wheezes, rales or rhonchi today Abdomen: Normoactive X4. Soft and nontender in all quadrants. Extremities: mild tremors and rhythmic movements of hands No peripheral clubbing cyanosis or edema Neuro: A&O X4 cranial nerves II through XII are grossly intact no focal neuro deficts Results & Data Results & Data ([facility]) Vital Signs (Past 12 Hours) Vital Signs Temp Pulse Pulse Pulse Resp BP BP 12/31/20 15:02 36.8 C 81 20 128/80 12/31/20 11:28 36.6 C 108 H 20 119/74 12/31/20 07:43 36.6 C 99 H 20 124/76 12/31/20 07:06 102 H 12/31/20 03:46 36.6 C 88 16 109/69 Pulse Ox 12/31/20 15:02 97 12/31/20 11:28 97 12/31/20 07:43 97 12/31/20 07:06 12/31/20 03:46 97 Laboratory Results 12/31/20 05:49 12/31/20 05:49 PG Care Time/CCT Total # of Minutes Spent Total Time Spent with Patient: Total time spent is greater than 50% in coordination of care (as documented) at patient's floor/unit and/or counseling patient: C[place] [address] Subseq Hosp Care Lvl 2 Patient Type Established Medical Decision Making Moderate Complexity Diagnoses Anemia D64.9 Anemia type: unspecified type Constipation K59.00 Metabolic encephalopathy G93.41 VIKY (acute kidney injury) N17.9 UTI (urinary tract infection) T83.511A; N39.0 Encounter type: initial encounter Indwelling urinary catheter type: indwelling urethral catheter Urinary tract infection type: catheter-associated UTI 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; L97.519 Diabetic ulcer of left foot E11.621; L97.529 Indwelling Plunkett catheter present Z96.0 Cerebral palsy G80.9 Cerebral palsy type: unspecified type Diabetes E11.40 Diabetes mellitus complication detail: with unspecified neuropathy Diabetes mellitus complication status: with neurologic complications Diabetes mellitus terminal superintendent insulin use: without terminal superintendent use Diabetes mellitus type: type 2 Hyperlipidemia E78.2 Hyperlipidemia type: mixed hyperlipidemia Cellulitis of right leg L03.115 HTN (hypertension) I10 Hypertension type: essential hypertension Hypokalemia E87.6 Leukocytosis D72.829 Pressure injury of sacral region, stage 2 L89.152 Spina bifida Q05.9 Stage III pressure ulcer of left buttock L89.323 Stage III pressure ulcer of right buttock L89.313 DVT prophylaxis Z29.9 (1) UTI (urinary tract infection) Encounter type: initial encounter Indwelling urinary catheter type: indwelling urethral catheter Urinary tract infection type: catheter-associated UTI Qualified Code(s): T83.511A - Infection and inflammatory reaction due to indwelling urethral catheter, initial encounter; N39.0 - Urinary tract inf ection, site not specified (2) Diabetes Diabetes mellitus complication detail: with unspecified neuropathy Diabetes mellitus complication status: with neurologic complications Diabetes mellitus terminal superintendent insulin use: without terminal superintendent use Diabetes mellitus type: type 2 Qualified Code(s): E11.40 - Type 2 diabetes mellitus with diabetic neuropathy, unspecified (3) Anemia Anemia type: unspecified type Qualified Code(s): D64.9 - Anemia, unspecified (4) Cerebral palsy Cerebral palsy type: unspecified type Qualified Code(s): G80.9 - Cerebral palsy, unspecified (5) Hyperlipidemia Hyperlipidemia type: mixed hyperlipidemia Qualified Code(s): E78.2 - Mixed hyperlipidemia (6) HTN (hypertension) Hypertension type: essential hypertension Qualified Code(s): I10 - Essential (primary) hypertension
[2020-12-31] MEDS: NIACIN 500 MG TAB PO SCH (20:39)
[2020-12-31] MEDS: bisacodyL 10 MG SUPP PR SCH (20:45)
[2021-01-01] MEDS: CEFEPIME 2,000 MG in SYRINGE 0 ML IV SCH ×3 (05:46→22:25)
[2021-01-01 08:06] LABS: Hematocrit (blood only) 26.6 % (42-52); Hemoglobin 8.6 g/dL (14.0-18.0)
[2021-01-01] MEDS: CHOLECALCIFEROL 1,000 UNITS 25 MCG TAB PO SCH (08:57)
[2021-01-01] MEDS: PROPRANOLOL HCL 60 MG LA CAP PO SCH (08:58)
[2021-01-01] MEDS: MAGNESIUM OXIDE 400 MG TAB PO SCH (08:58)
[2021-01-01] MEDS: FINASTERIDE 5 MG TAB PO SCH (08:58)
[2021-01-01] MEDS: SUCRALFATE 1 GM/10 ML UDC PO SCH ×4 (08:58→20:14)
[2021-01-01] MEDS: PANTOprazole 40 MG TAB PO SCH ×2 (08:59→20:16)
[2021-01-01] MEDS: gemfibroziL 600 MG TAB PO SCH ×2 (08:59→20:16)
[2021-01-01] MEDS: INSULIN GLARGINE SOLOSTAR 100 UNITS/ML 3 ML PEN SC SCH (08:59)
[2021-01-01] MEDS: DOCUSATE SODIUM 100 MG CAP PO SCH ×2 (09:00→20:16)
[2021-01-01] MEDS: DOCUSATE SODIUM/SENNA 50/8.6MG TAB PO SCH ×2 (09:00→20:16)
[2021-01-01] MEDS: INSULIN ASPART 100 UNITS/ML 3 ML PEN SC SCH ×4 (09:02→20:17)
[2021-01-01] MEDS: traMADol HCL 50 MG TABLET PO SCH (09:05)
[2021-01-01] MEDS: POTASSIUM CHLORIDE CRTAB 20 MEQ TABCR PO SCH ×2 (09:43→20:21)
[2021-01-01] MEDS: NIACIN 500 MG TAB PO SCH (20:15)
[2021-01-01] MEDS: bisacodyL 10 MG SUPP PR SCH (20:17)
--- NOTE | 2021-01-01 21:35 | Hospitalist Progress Note ---
Date of Service January 01, 2021 Assessment & Plan (1) Anemia: Plan: Patient presenting with complaints of generalized fatigue and weakness, laboratory findings with a hemoglobin of 5.5 Hemoglobin was 11.2 on 12/11 and then dropped down to 5.5 here on admission Currently, hemoglobin 7.8 but asymptomatic IV hydration currently on boardsuspect dilutional component Stop IVF Patient with mild bibasilar crackles but is not hypoxic or short of breath. Will give 1 dose of IV Lasix now Patient on PPI therapy for known esophagitis. Add Carafate CT abdomen/pelvis also was significant fecal load, no retroperitoneal bleed, but did have duodenitis seen. It is notable that he was recently on doxycycline for a wound infection. He finally had a very large bowel movement on 12/24 but did have some black stool and it was Hemoccult positive. Per nurse, was having multiple loose stools after bowel prep but this has since improved. Is status post 2 units PRBCs -- mild drop in H/H (likely dilutional component at this time) He is hemodynamically stable and asymptomatic at this point MCV is elevated, iron studies normal, B12 and folate normal This is most likely acute blood loss anemia, GI source EGD on 12/25 with esophagitis and gastritis, no duodenitis, no ulcers seen, biopsies taken GI plans for outpatient colonoscopy H/H dropped to 8.0 past two days, no signs of bleeding again, ferritin and iron has been normal when checked in the past repeat H/H is 8.6 will continue to monitor. (2) Constipation: Plan: Treated and resolved initially with severe, chronic colon distension. Treated and resolved. Bowel regimen on board (3) Metabolic encephalopathy: Plan: Resolved, was secondary to acute kidney injury, severe constipation, and acute blood loss anemia (4) VIKY (acute kidney injury): Plan: VIKY on CKD stage III Creatinine on presentation 2.27, baseline appears to be 0.8. Secondary to mild hypotension and acute blood loss anemia Received IV fluids as well as 2 units PRBCs Creatinine now back to baseline -Avoid nephrotoxins -Trend BMP catheter is draining very well and he is making plenty of urine (5) UTI (urinary tract infection): Plan: catheter associated UTI Patient with chronic indwelling Plunkett catheter, and UA suspicious for infection on presentation. urine culture with E coli and Pseudomonas, some resistance to quinolones in Pseudomonas on cefepime q8 (today makes day #10/20) would need 14 days for complicated UTI involving pseudomonas. may consider gent. bladder irrigation intermodal dispatcher given indwelling plunkett catheter Will consult IV team for UGS IV for intermodal dispatcher abx therapy as plan is for SNF looking into [facility], might take a few days case mgmt on board (6) Diabetic ulcer of right foot: Plan: Recently seen at wound care center, cultures grew MSSA and was treated with Bactrim and then doxycycline as an outpatient foot x-ray of right foot was negative for osteomyelitis Continue wound care here wound cultures collected on 12/22 growing coagulase-negative Staphylococcus-this is a surface culture, likely skin contaminant No cellulitis seen and do not think this needs any further antibiotic therapy (7) Diabetic ulcer of left foot: Plan: Local wound care Wound care nurse consultation left foot x-ray 12/26: no osteomyelitis arterial doppler: no PAD (8) Indwelling Plunkett catheter present: Plan: With a history of neurogenic bladder secondary to cerebral palsy Also noted to have BPH Continue finasteride (9) Cerebral palsy: Plan: Noted Supportive care, does not walk and uses wheelchair PT/OT consults anticipate him needing SNF for antibiotics and wound care for next 10-14 days (10) Diabetes: Plan: With some hyperglycemia on 12/24, into the 400s Holding home Metformin Continue NovoLog supplemental insulin and tighten down carbohydrate coverage and correction factor, and increase Lantus to 25 units reduced Lantus to 15 units this AM due to fasting sugar in low 100's and poor oral intake (11) Hyperlipidemia: Plan: Continue Lopid, niacin (12) Cellulitis of right leg: Plan: As above, resolved (13) HTN (hypertension): Plan: Blood pressures were low on arrival and now normal -Holding lisinopril due to BP still low -Holding furosemide Continued Propranolol 120 mg daily with hold parameters (14) Hypokalemia: Plan: reaplced and resolved (15) Leukocytosis: Plan: As above, could be reactive to severe anemia versus from infection-now much improved with blood transfusion and treatment of infection-- resolved Follow CBC (16) Pressure injury of sacral region, stage 2: Plan: Wound was recently debrided, does not appear infected Continue wound care, offloading pressure (17) Spina bifida: Plan: Noted (18) 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 He may need extra help or perhaps rehab placement Plan: will D/W Dr. Cornejo. Further orders as warrented. Admission and Anticipated Discharge Date Admission Date: December 23, 2020 Subjective Patient reports feeling well. He has no new complaints. Review of Systems Review of Systems: All systems reviewed & are unremarkable except as noted in HPI & below Physical Exam Physical Exam: General: Resting comfortably in his hospital bed. Does not appear ill or toxic Neck: No JVD. Negative hepatojugular reflex Cardiac: Distant heart sounds but regular rate and rhythm Lungs: Speaking full sentences on ambient air. No wheezes, rales or rhonchi today Abdomen: Normoactive X4. Soft and nontender in all quadrants. Extremities: mild tremors and rhythmic movements of hands No peripheral clubbing cyanosis or edema Neuro: A&O X4 cranial nerves II through XII are grossly intact no focal neuro deficts Results & Data Results & Data ([facility]) Vital Signs (Past 12 Hours) Vital Signs Temp Pulse Pulse Resp BP BP Pulse Ox 01/01/21 19:36 36.5 C 88 20 129/70 20 L 01/01/21 15:35 36.6 C 72 16 131/74 94 01/01/21 14:20 76 01/01/21 11:22 36.3 C L 86 16 146/78 H 99 PG Care Time/CCT Total # of Minutes Spent Total Time Spent with Patient: Total time spent is greater than 50% in coordination of care (as documented) at patient's floor/unit and/or counseling patient: Coding Level of Care Code 80428 Subseq Hosp Care Lvl 2 Diagnoses Anemia D64.9 Anemia type: unspecified type Constipation K59.00 Metabolic encephalopathy G93.41 VIKY (acute kidney injury) N17.9 UTI (urinary tract infection) T83.511A; N39.0 Encounter type: initial encounter Indwelling urinary catheter type: indwelling urethral catheter Urinary tract infection type: catheter-associated UTI 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; L97.519 Diabetic ulcer of left foot E11.621; L97.529 Indwelling Plunkett catheter present Z96.0 Cerebral palsy G80.9 Cerebral palsy type: unspecified type Diabetes E11.40 Diabetes mellitus type: type 2 Diabetes mellitus intermodal dispatcher insulin use: without intermodal dispatcher use Diabetes mellitus complication status: with neurologic complications Diabetes mellitus complication detail: with unspecified neuropathy Hyperlipidemia E78.2 Hyperlipidemia type: mixed hyperlipidemia Cellulitis of right leg L03.115 HTN (hypertension) I10 Hypertension type: essential hypertension Hypokalemia E87.6 Leukocytosis D72.829 Pressure injury of sacral region, stage 2 L89.152 Spina bifida Q05.9 Stage III pressure ulcer of left buttock L89.323 Stage III pressure ulcer of right buttock L89.313 DVT prophylaxis Z29.9 Time Spent (min) 25 (1) Anemia Anemia type: unspecified type Qualified Code(s): D64.9 - Anemia, unspecified (2) UTI (urinary tract infection) Encounter type: initial encounter Indwelling urinary catheter type: indwelling urethral catheter Urinary tract infection type: catheter-associated UTI Qualified Code(s): T83.511A - Infection and inflammatory reaction due to indwelling urethral catheter, initial encounter; N39.0 - Urinary tract infection, site not specified (3) Cerebral palsy Cerebral palsy type: unspecified type Qualified Code(s): G80.9 - Cerebral palsy, unspecified (4) Diabetes Diabetes mellitus type: type 2 Diabetes mellitus intermodal dispatcher insulin use: without mcc use Diabetes mellitus complication status: with neurologic complications Diabetes mellitus complication detail: with unspecified neuropathy Qualified Code(s): E11.40 - Type 2 diabetes mellitus with diabetic neuropathy, unspecified (5) Hyperlipidemia Hyperlipidemia type: mixed hyperlipidemia Qualified Code(s): E78.2 - Mixed hyperlipidemia (6) HTN (hypertension) Hypertension type: essential hypertension Qualified Code(s): I10 - Essential (primary) hypertension
[2021-01-02] MEDS: CEFEPIME 2,000 MG in SYRINGE 0 ML IV SCH ×3 (06:10→21:29)
[2021-01-02 08:11] LABS: Hematocrit (blood only) 28.1 % (42-52); Hemoglobin 8.9 g/dL (14.0-18.0); Mean Corpuscular Hemoglobin 32.6 pg (25-34); Mean Corpuscular Hgb Conc 31.7 g/dL (32-36); Mean Corpuscular Volume 102.9 fL (80-100); Platelet Count 202 K/uL (130-400); RDW Coefficient of Variation 17.1 % (11.5-14.5); RDW Standard Deviation 63.1 fL (36.4-46.3); Red Blood Count 2.73 M/uL (4.7-6.1); White Blood Count 6.55 K/uL (4.8-10.8)
[2021-01-02] MEDS: gemfibroziL 600 MG TAB PO SCH ×2 (08:37→20:09)
[2021-01-02] MEDS: FINASTERIDE 5 MG TAB PO SCH (08:37)
[2021-01-02] MEDS: PROPRANOLOL HCL 60 MG LA CAP PO SCH (08:37)
[2021-01-02] MEDS: SUCRALFATE 1 GM/10 ML UDC PO SCH ×4 (08:37→20:08)
[2021-01-02] MEDS: CHOLECALCIFEROL 1,000 UNITS 25 MCG TAB PO SCH (08:37)
[2021-01-02] MEDS: PANTOprazole 40 MG TAB PO SCH ×2 (08:37→20:08)
[2021-01-02] MEDS: MAGNESIUM OXIDE 400 MG TAB PO SCH (08:37)
[2021-01-02 08:43] LABS: Albumin Level 3.2 gm/dl (3.4-5.0); BUN Creatinine Ratio 24.4 (10-20); Calcium 9.4 mg/dl (8.5-10.1); Creatinine Clr Calc Pharmacy 80.9 ml/min; Est GFR (African American) 107.1 ml/min; Est GFR (Non-African American) 92.4 ml/min; Potassium 3.9 mmol/L (3.5-5.1)
[2021-01-02] MEDS: POTASSIUM CHLORIDE CRTAB 20 MEQ TABCR PO SCH ×2 (08:43→20:15)
[2021-01-02] MEDS: DOCUSATE SODIUM 100 MG CAP PO SCH ×2 (08:43→20:15)
[2021-01-02] MEDS: traMADol HCL 50 MG TABLET PO SCH (08:43)
[2021-01-02] MEDS: DOCUSATE SODIUM/SENNA 50/8.6MG TAB PO SCH ×2 (08:43→20:15)
[2021-01-02] MEDS: INSULIN ASPART 100 UNITS/ML 3 ML PEN SC SCH ×4 (08:44→20:10)
[2021-01-02 08:46] LABS: Albumin Globulin Ratio 0.8 (0.9-2); Bilirubin,Total 0.5 mg/dl (0.2-1); Total Protein 7.2 gm/dl (6.4-8.2)
[2021-01-02] MEDS: INSULIN GLARGINE SOLOSTAR 100 UNITS/ML 3 ML PEN SC SCH (08:49)
[2021-01-02] MEDS: bisacodyL 10 MG SUPP PR SCH (20:07)
[2021-01-02] MEDS: NIACIN 500 MG TAB PO SCH (20:09)
--- NOTE | 2021-01-02 21:26 | Hospitalist Progress Note ---
Date of Service January 02, 2021 Assessment & Plan (1) Anemia: Plan: Patient presenting with complaints of generalized fatigue and weakness, laboratory findings with a hemoglobin of 5.5 Hemoglobin was 11.2 on 12/11 and then dropped down to 5.5 here on admission Currently, hemoglobin 7.8 but asymptomatic IV hydration currently on boardsuspect dilutional component Stop IVF Patient with mild bibasilar crackles but is not hypoxic or short of breath. Will give 1 dose of IV Lasix now Patient on PPI therapy for known esophagitis. Add Carafate CT abdomen/pelvis also was significant fecal load, no retroperitoneal bleed, but did have duodenitis seen. It is notable that he was recently on doxycycline for a wound infection. He finally had a very large bowel movement on 12/24 but did have some black stool and it was Hemoccult positive. Per nurse, was having multiple loose stools after bowel prep but this has since improved. Is status post 2 units PRBCs -- mild drop in H/H (likely dilutional component at this time) He is hemodynamically stable and asymptomatic at this point MCV is elevated, iron studies normal, B12 and folate normal This is most likely acute blood loss anemia, GI source EGD on 12/25 with esophagitis and gastritis, no duodenitis, no ulcers seen, biopsies taken GI plans for outpatient colonoscopy H/H dropped to 8.0 past two days, no signs of bleeding again, ferritin and iron has been normal when checked in the past repeat H/H is 8.9 will continue to monitor. Pending placement, will monitor (2) Constipation: Plan: Treated and resolved initially with severe, chronic colon distension. Treated and resolved. Bowel regimen on board (3) Metabolic encephalopathy: Plan: Resolved, was secondary to acute kidney injury, severe constipation, and acute blood loss anemia (4) VIKY (acute kidney injury): Plan: VIKY on CKD stage III Creatinine on presentation 2.27, baseline appears to be 0.8. Secondary to mild hypotension and acute blood loss anemia Received IV fluids as well as 2 units PRBCs Creatinine now back to baseline -Avoid nephrotoxins -Trend BMP catheter is draining very well and he is making plenty of urine (5) UTI (urinary tract infection): Plan: catheter associated UTI Patient with chronic indwelling Plunkett catheter, and UA suspicious for infection on presentation. urine culture with E coli and Pseudomonas, some resistance to quinolones in P seudomonas on cefepime q8 (today makes day #10/20) would need 14 days for complicated UTI involving pseudomonas. may consider gent. bladder irrigation moth exterminator given indwelling plunkett catheter Will consult IV team for UGS IV for intermediate abx therapy as plan is for SNF looking into [facility], might take a few days case mgmt on board (6) Diabetic ulcer of right foot: Plan: Recently seen at wound care center, cultures grew MSSA and was treated with Bactrim and then doxycycline as an outpatient foot x-ray of right foot was negative for osteomyelitis Continue wound care here wound cultures collected on 12/22 growing coagulase-negative Staphylococcus-this is a surface culture, likely skin contaminant No cellulitis seen and do not think this needs any further antibiotic therapy (7) Diabetic ulcer of left foot: Plan: Local wound care Wound care nurse consultation left foot x-ray 12/26: no osteomyelitis arterial doppler: no PAD (8) Indwelling Plunkett catheter present: Plan: With a history of neurogenic bladder secondary to cerebral palsy Also noted to have BPH Continue finasteride (9) Cerebral palsy: Plan: Noted Supportive care, does not walk and uses wheelchair PT/OT consults anticipate him needing SNF for antibiotics and wound care for next 10-14 days (10) Diabetes: Plan: With some hyperglycemia on 12/24, into the 400s Holding home Metformin Continue NovoLog supplemental insulin and tighten down carbohydrate coverage and correction factor, and increase Lantus to 25 units reduced Lantus to 15 units this AM due to fasting sugar in low 100's and poor oral intake (11) Hyperlipidemia: Plan: Continue Lopid, niacin (12) Cellulitis of right leg: Plan: As above, resolved (13) HTN (hypertension): Plan: Blood pressures were low on arrival and now normal -Holding lisinopril due to BP still low -Holding furosemide Continued Propranolol 120 mg daily with hold parameters (14) Hypokalemia: Plan: reaplced and resolved (15) Leukocytosis: Plan: As above, could be reactive to severe anemia versus from infection-now much improved with blood transfusion and treatment of infection-- resolved Follow CBC (16) Pressure injury of sacral region, stage 2: Plan: Wound was recently debrided, does not appear infected Continue wound care, offloading pressure (17) Spina bifida: Plan: Noted (18) 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 He may need extra help or perhaps rehab placement Plan: will D/W Dr. Cornejo. Further orders as warrented. Admission and Anticipated Discharge Date Admission Date: December 23, 2020 Subjective Patient reports no new symptoms today. Review of Systems Review of Systems: All systems reviewed & are unremarkable except as noted in HPI & below Physical Exam Physical Exam: General: Resting comfortably in his hospital bed. Does not appear ill or toxic Neck: No JVD. Negative hepatojugular reflex Cardiac: Distant heart sounds but regular rate and rhythm Lungs: Speaking full sentences on ambient air. No wheezes, rales or rhonchi today Abdomen: Normoactive X4. Soft and nontender in all quadrants. Extremities: mild tremors and rhythmic movements of hands No peripheral clubbing cyanosis or edema Neuro: A&O X4 cranial nerves II through XII are grossly intact no focal neuro deficts Results & Data Results & Data ([facility]) Vital Signs (Past 12 Hours) Vital Signs Temp Pulse Pulse Resp BP BP Pulse Ox 01/02/21 19:06 36.6 C 79 18 139/77 98 01/02/21 15:28 36.6 C 86 18 132/84 99 01/02/21 15:15 90 01/02/21 11:02 36.5 C 102 H 16 132/72 94 PG Care Time/CCT Total # of Minutes Spent Total Time Spent with Patient: Total time spent is greater than 50% in coordination of care (as documented) at patient's floor/unit and/or counseling patient: Coding Level of Care Code 18011 Subseq Hosp Care Lvl 2 Diagnoses Anemia D64.9 Anemia type: unspecified type Constipation K59.00 Metabolic encephalopathy G93.41 VIKY (acute kidney injury) N17.9 UTI (urinary tract infection) T83.511A; N39.0 Encounter type: initial encounter Indwelling urinary catheter type: indwelling urethral catheter Urinary tract infection type: catheter-associated UTI 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; L97.519 Diabetic ulcer of left foot E11.621; L97.529 Indwelling Plunkett catheter present Z96.0 Cerebral palsy G80.9 Cerebral palsy type: unspecified type Diabetes E11.40 Diabetes mellitus complication detail: with unspecified neuropathy Diabetes mellitus complication status: with neurologic complications Diabetes mellitus moth exterminator insulin use: without intermediate use Diabetes mellitus type: type 2 Hyperlipidemia E78.2 Hyperlipidemia type: mixed hyperlipidemia Cellulitis of right leg L03.115 HTN (hypertension) I10 Hypertension type: essential hypertension Hypokalemia E87.6 Leukocytosis D72.829 Pressure injury of sacral region, stage 2 L89.152 Spina bifida Q05.9 Stage III pressure ulcer of left buttock L89.323 Stage III pressure ulcer of right buttock L89.313 DVT prophylaxis Z29.9 Time Spent (min) 25 (1) UTI (urinary tract infection) Encounter type: initial encounter Indwelling urinary catheter type: indwelling urethral catheter Urinary tract infection type: catheter-associated UTI Qualified Code(s): T83.511A - Infection and inflammatory reaction due to indwelling urethral catheter, initial encounter; N39.0 - Urinary tract infection, site not specified (2) Diabetes Diabetes mellitus complication detail: with unspecified neuropathy Diabetes mellitus complication status: with neurologic complications Diabetes mellitus l anita term insulin use: without moth exterminator use Diabetes mellitus type: type 2 Qualified Code(s): E11.40 - Type 2 diabetes mellitus with diabetic neuropathy, unspecified (3) Anemia Anemia type: unspecified type Qualified Code(s): D64.9 - Anemia, unspecified (4) Cerebral palsy Cerebral palsy type: unspecified type Qualified Code(s): G80.9 - Cerebral palsy, unspecified (5) Hyperlipidemia Hyperlipidemia type: mixed hyperlipidemia Qualified Code(s): E78.2 - Mixed hyperlipidemia (6) HTN (hypertension) Hypertension type: essential hypertension Qualified Code(s): I10 - Essential (primary) hypertension
[2021-01-03] MEDS: CEFEPIME 2,000 MG in SYRINGE 0 ML IV SCH ×3 (05:23→21:34)
[2021-01-03 08:13] LABS: Hemoglobin 9.7 g/dL (14.0-18.0); Mean Corpuscular Hemoglobin 33.2 pg (25-34); Mean Corpuscular Hgb Conc 32.3 g/dL (32-36); Mean Corpuscular Volume 102.7 fL (80-100); Mean Platelet Volume 8.9 fL (7.4-10.4); Platelet Count 214 K/uL (130-400); RDW Coefficient of Variation 17.1 % (11.5-14.5); RDW Standard Deviation 62.9 fL (36.4-46.3); Red Blood Count 2.92 M/uL (4.7-6.1); White Blood Count 7.67 K/uL (4.8-10.8)
[2021-01-03] MEDS: INSULIN ASPART 100 UNITS/ML 3 ML PEN SC SCH ×4 (08:27→20:37)
[2021-01-03] MEDS: INSULIN GLARGINE SOLOSTAR 100 UNITS/ML 3 ML PEN SC SCH (08:29)
[2021-01-03] MEDS: SUCRALFATE 1 GM/10 ML UDC PO SCH ×4 (08:30→20:39)
[2021-01-03] MEDS: MAGNESIUM OXIDE 400 MG TAB PO SCH (08:31)
[2021-01-03] MEDS: PROPRANOLOL HCL 60 MG LA CAP PO SCH (08:31)
[2021-01-03] MEDS: PANTOprazole 40 MG TAB PO SCH ×2 (08:33→20:39)
[2021-01-03] MEDS: FINASTERIDE 5 MG TAB PO SCH (08:33)
[2021-01-03] MEDS: CHOLECALCIFEROL 1,000 UNITS 25 MCG TAB PO SCH (08:33)
[2021-01-03] MEDS: DOCUSATE SODIUM 100 MG CAP PO SCH ×2 (08:34→20:36)
[2021-01-03] MEDS: gemfibroziL 600 MG TAB PO SCH ×2 (08:34→20:39)
[2021-01-03] MEDS: traMADol HCL 50 MG TABLET PO SCH (08:37)
[2021-01-03] MEDS: POTASSIUM CHLORIDE CRTAB 20 MEQ TABCR PO SCH ×2 (08:37→20:41)
[2021-01-03] MEDS: DOCUSATE SODIUM/SENNA 50/8.6MG TAB PO SCH ×2 (08:38→20:36)
[2021-01-03 08:57] LABS: BUN Creatinine Ratio 23.6 (10-20); Calcium 9.2 mg/dl (8.5-10.1); Creatinine Clr Calc Pharmacy 89.8 ml/min; Est GFR (African American) 108.3 ml/min; Est GFR (Non-African American) 93.4 ml/min; Potassium 3.9 mmol/L (3.5-5.1)
--- NOTE | 2021-01-03 16:55 | Ultrasound Report ---
BILATERAL LOWER EXTREMITY VENOUS DOPPLER HISTORY: Assess for DVT. TACHYCARDIA COMPARISON STUDY: None. FINDINGS: There is normal compressibility, flow, and augmentation within the bilateral lower extremit y deep venous systems. IMPRESSION: No DVT within the right or left lower extremity. ACT 112: Negative or not required by law. Electronically signed by: Rd Ty M.D. 01/03/2021 4:53 PM
[2021-01-03] MEDS: bisacodyL 10 MG SUPP PR SCH (20:36)
[2021-01-03] MEDS: NIACIN 500 MG TAB PO SCH (20:39)
--- NOTE | 2021-01-03 21:04 | Hospitalist Progress Note ---
Date of Service January 03, 2021 Assessment & Plan (1) Anemia: Plan: Patient presenting with complaints of generalized fatigue and weakness, laboratory findings with a hemoglobin of 5.5 Hemoglobin was 11.2 on 12/11 and then dropped down to 5.5 here on admission Currently, hemoglobin 7.8 but asymptomatic IV hydration currently on boardsuspect dilutional component Stop IVF Patient with mild bibasilar crackles but is not hypoxic or short of breath. Will give 1 dose of IV Lasix now Patient on PPI therapy for known esophagitis. Add Carafate CT abdomen/pelvis also was significant fecal load, no retroperitoneal bleed, but did have duodenitis seen. It is notable that he was recently on doxycycline for a wound infection. He finally had a very large bowel movement on 12/24 but did have some black stool and it was Hemoccult positive. Per nurse, was having multiple loose stools after bowel prep but this has since improved. Is status post 2 units PRBCs -- mild drop in H/H (likely dilutional component at this time) He is hemodynamically stable and asymptomatic at this point MCV is elevated, iron studies normal, B12 and folate normal This is most likely acute blood loss anemia, GI source EGD on 12/25 with esophagitis and gastritis, no duodenitis, no ulcers seen, biopsies taken GI plans for outpatient colonoscopy H/H dropped to 8.0, no signs of bleeding again, ferritin and iron has been normal when checked in the past repeat H/H is now above 9 will continue to monitor. Pending placement, will monitor Ordered doppler us for dvt which was negative. (2) Constipation: Plan: Treated and resolved initially with severe, chronic colon distension. Treated and resolved. Bowel regimen on board (3) Metabolic encephalopathy: Plan: Resolved, was secondary to acute kidney injury, severe constipation, and acute blood loss anemia (4) VIKY (acute kidney injury): Plan: VIKY on CKD stage III Creatinine on presentation 2.27, baseline appears to be 0.8. Secondary to mild hypotension and acute blood loss anemia Received IV fluids as well as 2 units PRBCs Creatinine now back to baseline -Avoid nephrotoxins -Trend BMP catheter is draining very well and he is making plenty of urine (5) UTI (urinary tract infection): Plan: catheter associated UTI Patient with chronic indwelling Plunkett catheter, and UA suspicious for infection on presentation. urine culture with E coli and Pseudomonas, some resistance to quinolones in Pseudomonas on cefepime q8 (today makes day #10/20) would need 14 days for complicated UTI involving pseudomonas. may consider gent. bladder irrigation correction given indwelling plunkett catheter Will consult IV team for UGS IV for correction abx therapy as plan is for SNF looking into [facility], might take a few days case mgmt on board (6) Diabetic ulcer of right foot: Plan: Recently seen at wound care center, cultures grew MSSA and was treated with Bactrim and then doxycycline as an outpatient foot x-ray of right foot was negative for osteomyelitis Continue wound care here wound cultures collected on 12/22 growing coagulase-negative Staphylococcus-this is a surface culture, likely skin contaminant No cellulitis seen and do not think this needs any further antibiotic therapy (7) Diabetic ulcer of left foot: Plan: Local wound care Wound care nurse consultation left foot x-ray 12/26: no osteomyelitis arterial doppler: no PAD (8) Indwelling Plunkett catheter present: Plan: With a history of neurogenic bladder secondary to cerebral palsy Also noted to have BPH Continue finasteride (9) Cerebral palsy: Plan: Noted Supportive care, does not walk and uses wheelchair PT/OT consults anticipate him needing SNF for antibiotics and wound care for next 10-14 days (10) Diabetes: Plan: With some hyperglycemia on 12/24, into the 400s Holding home Metformin Continue NovoLog supplemental insulin and tighten down carbohydrate coverage and correction factor, and increase Lantus to 25 units reduced Lantus to 15 units this AM due to fasting sugar in low 100's and poor oral intake (11) Hyperlipidemia: Plan: Continue Lopid, niacin (12) Cellulitis of right leg: Plan: As above, resolved (13) HTN (hypertension): Plan: Blood pressures were low on arrival and now normal -Holding lisinopril due to BP still low -Holding furosemide Continued Propranolol 120 mg daily with hold parameters (14) Hypokalemia: Plan: reaplced and resolved (15) Leukocytosis: Plan: As above, could be reactive to severe anemia versus from infection-now much improved with blood transfusion and treatment of infection-- resolved Follow CBC (16) Pressure injury of sacral region, stage 2: Plan: Wound was recently debrided, does not appear infected Continue wound care, offloading pressure (17) Spina bifida: Plan: Noted (18) 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 He may need extra help or perhaps rehab placement Plan: will D/W Dr. Cornejo. Further orders as warrented. Admission and Anticipated Discharge Date Admission Date: December 23, 2020 Subjective Patient reports havign some pain in the sole of his right foot. Review of Systems Review of Systems: All systems reviewed & are unremarkable except as noted in HPI & below Physical Exam Physical Exam: General: Resting comfortably in his hospital bed. Does not appear ill or toxic Neck: No JVD. Negative hepatojugular reflex Cardiac: Distant heart sounds but regular rate and rhythm Lungs: Speaking full sentences on ambient air. No wheezes, rales or rhonchi today Abdomen: Normoactive X4. Soft and nontender in all quadrants. Extremities: mild tremors and rhythmic movements of hands No peripheral clubbing cyanosis or edema Mild coldness on his left foot. No erythema noted on either foot. Neuro: A&O X4 cranial nerves II through XII are grossly intact no focal neuro deficts Results & Data Results & Data ([facility]) Vital Signs (Past 12 Hours) Vital Signs Temp Pulse Resp BP BP Pulse Ox 01/03/21 19:09 36.6 C 80 18 113/77 98 01/03/21 15:01 36.7 C 81 18 119/69 96 01/03/21 11:12 36.5 C 111 H 18 133/85 98 PG Care Time/CCT Total # of Minutes Spent Total Time Spent with Patient: Total time spent is greater than 50% in coordination of care (as documented) at patient's floor/unit and/or counseling patient: Coding Level of Care Code 00153 Subseq Hosp Care Lvl 2 Diagnoses Anemia D64.9 Anemia type: unspecified type Constipation K59.00 Metabolic encephalopathy G93.41 VIKY (acute kidney injury) N17.9 UTI (urinary tract infection) T83.511A; N39.0 Encounter type: initial encounter Indwelling urinary catheter type: indwelling urethral catheter Urinary tract infection type: catheter-associated UTI 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; L97.519 Diabetic ulcer of left foot E11.621; L97.529 Indwelling Plunkett catheter present Z96.0 Cerebral palsy G80.9 Cerebral palsy type: unspecified type Diabetes E11.40 Diabetes mellitus type: type 2 Diabetes mellitus correction insulin use: without correction use Diabetes mellitus complication status: with neurologic complications Diabetes mellitus complication detail: with unspecified neuropathy Hyperlipidemia E78.2 Hyperlipidemia type: mixed hyperlipidemia Cellulitis of right leg L03.115 HTN (hypertension) I10 Hypertension type: essential hypertension Hypokalemia E87.6 Leukocytosis D72.829 Pressure injury of sacral region, stage 2 L89.152 Spina bifida Q05.9 Stage III pressure ulcer of left buttock L89.323 Stage III pressure ulcer of right buttock L89.313 DVT prophylaxis Z29.9 Time Spent (min) 25 (1) Anemia Anemia type: unspecified type Qualified Code(s): D64.9 - Anemia, unspecified (2) UTI (urinary tract infection) Encounter type: initial encounter Indwelling urinary catheter type: indwelling urethral catheter Urinary tract infection type: catheter-associated UTI Qualified Code(s): T83.511A - Infection and inflammatory reaction due to indwelling urethral catheter, initial encounter; N39.0 - Urinary tract infection, site not specified (3) Cerebral palsy Cerebral palsy type: unspecified type Qualified Code(s): G80.9 - Cerebral palsy, unspecified (4) Diabetes Diabetes mellitus type: type 2 Diabetes mellitus correction insulin use: without terminal gauger supervisor use Diabetes mellitus complication status: with neurologic complications Diabetes mellitus complication detail: with unspecified neuropathy Qualified Code(s): E11.40 - Type 2 diabetes mellitus with diabetic neuropathy, unspecified (5) Hyperlipidemia Hyperlipidemia type: mixed hyperlipidemia Qualified Code(s): E78.2 - Mixed hyperlipidemia (6) HTN (hypertension) Hypertension type: essential hypertension Qualified Code(s): I10 - Essential (primary) hypertension
[2021-01-04] MEDS: CEFEPIME 2,000 MG in SYRINGE 0 ML IV SCH ×3 (06:21→21:01)
[2021-01-04] MEDS: INSULIN GLARGINE SOLOSTAR 100 UNITS/ML 3 ML PEN SC SCH (10:03)
[2021-01-04] MEDS: INSULIN ASPART 100 UNITS/ML 3 ML PEN SC SCH ×4 (10:03→20:59)
[2021-01-04] MEDS: PANTOprazole 40 MG TAB PO SCH ×2 (10:07→21:01)
[2021-01-04] MEDS: MAGNESIUM OXIDE 400 MG TAB PO SCH (10:07)
[2021-01-04] MEDS: gemfibroziL 600 MG TAB PO SCH ×2 (10:07→20:59)
[2021-01-04] MEDS: SUCRALFATE 1 GM/10 ML UDC PO SCH ×4 (10:07→21:01)
[2021-01-04] MEDS: FINASTERIDE 5 MG TAB PO SCH (10:07)
[2021-01-04] MEDS: PROPRANOLOL HCL 60 MG LA CAP PO SCH (10:07)
[2021-01-04] MEDS: CHOLECALCIFEROL 1,000 UNITS 25 MCG TAB PO SCH (10:08)
[2021-01-04] MEDS: DOCUSATE SODIUM 100 MG CAP PO SCH ×2 (10:10→20:58)
[2021-01-04] MEDS: traMADol HCL 50 MG TABLET PO SCH (10:10)
[2021-01-04] MEDS: POTASSIUM CHLORIDE CRTAB 20 MEQ TABCR PO SCH ×2 (10:10→21:01)
[2021-01-04] MEDS: DOCUSATE SODIUM/SENNA 50/8.6MG TAB PO SCH ×2 (11:14→20:58)
[2021-01-04] MEDS: bisacodyL 10 MG SUPP PR SCH (20:57)
[2021-01-04] MEDS: NIACIN 500 MG TAB PO SCH (21:00)
--- NOTE | 2021-01-04 22:30 | Hospitalist Progress Note ---
Date of Service January 04, 2021 Assessment & Plan (1) Anemia: Plan: Patient presenting with complaints of generalized fatigue and weakness, laboratory findings with a hemoglobin of 5.5 Hemoglobin was 11.2 on 12/11 and then dropped down to 5.5 here on admission Currently, hemoglobin 7.8 but asymptomatic IV hydration currently on boardsuspect dilutional component Stop IVF Patient with mild bibasilar crackles but is not hypoxic or short of breath. Will give 1 dose of IV Lasix now Patient on PPI therapy for known esophagitis. Add Carafate CT abdomen/pelvis also was significant fecal load, no retroperitoneal bleed, but did have duodenitis seen. It is notable that he was recently on doxycycline for a wound infection. He finally had a very large bowel movement on 12/24 but did have some black stool and it was Hemoccult positive. Per nurse, was having multiple loose stools after bowel prep but this has since improved. Is status post 2 units PRBCs -- mild drop in H/H (likely dilutional component at this time) He is hemodynamically stable and asymptomatic at this point MCV is elevated, iron studies normal, B12 and folate normal This is most likely acute blood loss anemia, GI source EGD on 12/25 with esophagitis and gastritis, no duodenitis, no ulcers seen, biopsies taken GI plans for outpatient colonoscopy H/H dropped to 8.0, no signs of bleeding again, ferritin and iron has been normal when checked in the past repeat H/H is now above 9 will continue to monitor. Pending placement, will monitor Ordered doppler us for dvt which was negative. (2) Constipation: Plan: Treated and resolved initially with severe, chronic colon distension. Treated and resolved. Bowel regimen on board (3) Metabolic encephalopathy: Plan: Resolved, was secondary to acute kidney injury, severe constipation, and acute blood loss anemia (4) VIKY (acute kidney injury): Plan: VIKY on CKD stage III Creatinine on presentation 2.27, baseline appears to be 0.8. Secondary to mild hypotension and acute blood loss anemia Received IV fluids as well as 2 units PRBCs Creatinine now back to baseline -Avoid nephrotoxins -Trend BMP catheter is draining very well and he is making plenty of urine (5) UTI (urinary tract infection): Plan: catheter associated UTI Patient with chronic indwelling Plunkett catheter, and UA suspicious for infection on presentation. urine culture with E coli and Pseudomonas, some resistance to quinolones in Pseudomonas on cefepime q8 (today makes day #10/20) would need 14 days for complicated UTI involving pseudomonas. may consider gent. bladder irrigation custodial given indwelling plunkett catheter Will consult IV team for UGS IV for custodial abx therapy as plan is for SNF looking into [facility], might take a few days case mgmt on board (6) Diabetic ulcer of right foot: Plan: Recently seen at wound care center, cultures grew MSSA and was treated with Bactrim and then doxycycline as an outpatient foot x-ray of right foot was negative for osteomyelitis Continue wound care here wound cultures collected on 12/22 growing coagulase-negative Staphylococcus-this is a surface culture, likely skin contaminant No cellulitis seen and do not think this needs any further antibiotic therapy (7) Diabetic ulcer of left foot: Plan: Local wound care Wound care nurse consultation left foot x-ray 12/26: no osteomyelitis arterial doppler: no PAD (8) Indwelling Plunkett catheter present: Plan: With a history of neurogenic bladder secondary to cerebral palsy Also noted to have BPH Continue finasteride (9) Cerebral palsy: Plan: Noted Supportive care, does not walk and uses wheelchair PT/OT consults anticipate him needing SNF for antibiotics and wound care for next 10-14 days (10) Diabetes: Plan: With some hyperglycemia on 12/24, into the 400s Holding home Metformin Continue NovoLog supplemental insulin and tighten down carbohydrate coverage and correction factor, and increase Lantus to 25 units reduced Lantus to 15 units this AM due to fasting sugar in low 100's and poor oral intake (11) Hyperlipidemia: Plan: Continue Lopid, niacin (12) Cellulitis of right leg: Plan: As above, resolved (13) HTN (hypertension): Plan: Blood pressures were low on arrival and now normal -Holding lisinopril due to BP still low -Holding furosemide Continued Propranolol 120 mg daily with hold parameters (14) Hypokalemia: Plan: reaplced and resolved (15) Leukocytosis: Plan: As above, could be reactive to severe anemia versus from infection-now much improved with blood transfusion and treatment of infection-- resolved Follow CBC (16) Pressure injury of sacral region, stage 2: Plan: Wound was recently debrided, does not appear infected Continue wound care, offloading pressure (17) Spina bifida: Plan: Noted (18) 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 He may need extra help or perhaps rehab placement Plan: will D/W Dr. Cornejo. Further orders as warrented. Admission and Anticipated Discharge Date Admission Date: December 23, 2020 Subjective Patient reorts no new symptoms. Review of Systems Review of Systems: All systems reviewed & are unremarkable except as noted in HPI & below Physical Exam Physical Exam: General: Resting comfortably in his hospital bed. Does not appear ill or toxic Neck: No JVD. Negative hepatojugular reflex Cardiac: Distant heart sounds but regular rate and rhythm Lungs: Speaking full sentences on ambient air. No wheezes, rales or rhonchi today Abdomen: Normoactive X4. Soft and nontender in all quadrants. Extremities: mild tremors and rhythmic movements of hands No peripheral clubbing cyanosis or edema Mild coldness on his left foot. No erythema noted on either foot. Neuro: A&O X4 cranial nerves II through XII are grossly intact no focal neuro deficts Results & Data Results & [facility] ([facility]) Vital Signs (Past 12 Hours) Vital Signs Temp Pulse Resp BP BP Pulse Ox 01/04/21 22:10 36.8 C 76 18 119/67 96 01/04/21 19:08 36.4 C L 72 18 122/74 97 01/04/21 15:24 36.4 C L 68 18 127/77 100 01/04/21 11:20 36.6 C 96 H 20 126/78 99 PG Care Time/CCT Total # of Minutes Spent Total Time Spent with Patient: Total time spent is greater than 50% in coordination of care (as documented) at patient's floor/unit and/or counseling patient: Coding Level of Care Code 02357 Subseq Hosp Care Lvl 1 Diagnoses Anemia D64.9 Anemia type: unspecified type Constipation K59.00 Metabolic encephalopathy G93.41 VIKY (acute kidney injury) N17.9 UTI (urinary tract infection) T83.511A; N39.0 Encounter type: initial encounter Indwelling urinary catheter type: indwelling urethral catheter Urinary tract infection type: catheter-associated UTI 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; L97.519 Diabetic ulcer of left foot E11.621; L97.529 Indwelling Plunkett catheter present Z96.0 Cerebral palsy G80.9 Cerebral palsy type: unspecified type Diabetes E11.40 Diabetes mellitus complication detail: with unspecified neuropathy Diabetes mellitus complication status: with neurologic complications Diabetes mellitus tank terminal gauger insulin use: without tank terminal gauger use Diabetes mellitus type: type 2 Hyperlipidemia E78.2 Hyperlipidemia type: mixed hyperlipidemia Cellulitis of right leg L03.115 HTN (hypertension) I10 Hypertension type: essential hypertension Hypokalemia E87.6 Leukocytosis D72.829 Pressure injury of sacral region, stage 2 L89.152 Spina bifida Q05.9 Stage III pressure ulcer of left buttock L89.323 Stage III pressure ulcer of right buttock L89.313 DVT prophylaxis Z29.9 (1) UTI (urinary tract infection) Encounter type: initial encounter Indwelling urinary catheter type: indwelli ng urethral catheter Urinary tract infection type: catheter-associated UTI Qualified Code(s): T83.511A - Infection and inflammatory reaction due to indwelling urethral catheter, initial encounter; N39.0 - Urinary tract infection, site not specified (2) Diabetes Diabetes mellitus complication detail: with unspecified neuropathy Diabetes mellitus complication status: with neurologic complications Diabetes mellitus custodial insulin use: without custodial use Diabetes mellitus type: type 2 Qualified Code(s): E11.40 - Type 2 diabetes mellitus with diabetic neuropathy, unspecified (3) Anemia Anemia type: unspecified type Qualified Code(s): D64.9 - Anemia, unspecified (4) Cerebral palsy Cerebral palsy type: unspecified type Qualified Code(s): G80.9 - Cerebral palsy, unspecified (5) Hyperlipidemia Hyperlipidemia type: mixed hyperlipidemia Qualified Code(s): E78.2 - Mixed hyperlipidemia (6) HTN (hypertension) Hypertension type: essential hypertension Qualified Code(s): I10 - Essential (primary) hypertension
[2021-01-05] MEDS: CEFEPIME 2,000 MG in SYRINGE 0 ML IV SCH (06:17)
[2021-01-05] MEDS: CHOLECALCIFEROL 1,000 UNITS 25 MCG TAB PO SCH (08:56)
[2021-01-05] MEDS: FINASTERIDE 5 MG TAB PO SCH (08:57)
[2021-01-05] MEDS: MAGNESIUM OXIDE 400 MG TAB PO SCH (08:57)
[2021-01-05] MEDS: PROPRANOLOL HCL 60 MG LA CAP PO SCH (08:57)
[2021-01-05] MEDS: gemfibroziL 600 MG TAB PO SCH ×2 (08:58→21:35)
[2021-01-05] MEDS: PANTOprazole 40 MG TAB PO SCH ×2 (08:58→21:35)
[2021-01-05] MEDS: INSULIN ASPART 100 UNITS/ML 3 ML PEN SC SCH ×4 (09:00→21:41)
[2021-01-05] MEDS: SUCRALFATE 1 GM/10 ML UDC PO SCH ×4 (09:01→21:37)
[2021-01-05] MEDS: INSULIN GLARGINE SOLOSTAR 100 UNITS/ML 3 ML PEN SC SCH (09:01)
[2021-01-05] MEDS: traMADol HCL 50 MG TABLET PO SCH (09:05)
[2021-01-05] MEDS: DOCUSATE SODIUM/SENNA 50/8.6MG TAB PO SCH ×2 (09:05→21:47)
[2021-01-05] MEDS: POTASSIUM CHLORIDE CRTAB 20 MEQ TABCR PO SCH ×2 (09:05→21:34)
[2021-01-05] MEDS: DOCUSATE SODIUM 100 MG CAP PO SCH ×2 (09:05→21:34)
[2021-01-05] MEDS: guaiFENesin/CODEINE 100MG/10MG 5ML UDC PO PRN (12:52)
--- NOTE | 2021-01-05 20:47 | Hospitalist Progress Note ---
Date of Service January 05, 2021 Assessment & Plan (1) Anemia: Plan: Patient presenting with complaints of generalized fatigue and weakness, laboratory findings with a hemoglobin of 5.5 Hemoglobin was 11.2 on 12/11 and then dropped down to 5.5 here on admission Currently, hemoglobin 7.8 but asymptomatic IV hydration currently on boardsuspect dilutional component Stop IVF Patient with mild bibasilar crackles but is not hypoxic or short of breath. Will give 1 dose of IV Lasix now Patient on PPI therapy for known esophagitis. Add Carafate CT abdomen/pelvis also was significant fecal load, no retroperitoneal bleed, but did have duodenitis seen. It is notable that he was recently on doxycycline for a wound infection. He finally had a very large bowel movement on 12/24 but did have some black stool and it was Hemoccult positive. Per nurse, was having multiple loose stools after bowel prep but this has since improved. Is status post 2 units PRBCs -- mild drop in H/H (likely dilutional component at this time) He is hemodynamically stable and asymptomatic at this point MCV is elevated, iron studies normal, B12 and folate normal This is most likely acute blood loss anemia, GI source EGD on 12/25 with esophagitis and gastritis, no duodenitis, no ulcers seen, biopsies taken GI plans for outpatient colonoscopy H/H dropped to 8.0, no signs of bleeding again, ferritin and iron has been normal when checked in the past repeat H/H is now above 9 will continue to monitor. Pending placement, will monitor Ordered doppler us for dvt which was negative. (2) Constipation: Plan: Treated and resolved initially with severe, chronic colon distension. Treated and resolved. Bowel regimen on board (3) Metabolic encephalopathy: Plan: Resolved, was secondary to acute kidney injury, severe constipation, and acute blood loss anemia (4) VIKY (acute kidney injury): Plan: VIKY on CKD stage III Creatinine on presentation 2.27, baseline appears to be 0.8. Secondary to mild hypotension and acute blood loss anemia Received IV fluids as well as 2 units PRBCs Creatinine now back to baseline -Avoid nephrotoxins -Trend BMP catheter is draining very well and he is making plenty of urine (5) UTI (urinary tract infection): Plan: catheter associated UTI Patient with chronic indwelling Plunkett catheter, and UA suspicious for infection on presentation. urine culture with E coli and Pseudomonas, some resistance to quinolones in Pseudomonas on cefepime q8 (today makes day #10/20) would need 14 days for complicated UTI involving pseudomonas. may consider gent. bladder irrigation residential given indwelling plunkett catheter Will consult IV team for UGS IV for residential abx therapy as plan is for SNF looking into [facility], might take a few days case mgmt on board (6) Diabetic ulcer of right foot: Plan: Recently seen at wound care center, cultures grew MSSA and was treated with Bactrim and then doxycycline as an outpatient foot x-ray of right foot was negative for osteomyelitis Continue wound care here wound cultures collected on 12/22 growing coagulase-negative Staphylococcus-this is a surface culture, likely skin contaminant No cellulitis seen and do not think this needs any further antibiotic therapy (7) Diabetic ulcer of left foot: Plan: Local wound care Wound care nurse consultation left foot x-ray 12/26: no osteomyelitis arterial doppler: no PAD (8) Indwelling Plunkett catheter present: Plan: With a history of neurogenic bladder secondary to cerebral palsy Also noted to have BPH Continue finasteride (9) Cerebral palsy: Plan: Noted Supportive care, does not walk and uses wheelchair PT/OT consults anticipate him needing SNF for antibiotics and wound care for next 10-14 days (10) Diabetes: Plan: With some hyperglycemia on 12/24, into the 400s Holding home Metformin Continue NovoLog supplemental insulin and tighten down carbohydrate coverage and correction factor, and increase Lantus to 25 units reduced Lantus to 15 units this AM due to fasting sugar in low 100's and poor oral intake (11) Hyperlipidemia: Plan: Continue Lopid, niacin (12) Cellulitis of right leg: Plan: As above, resolved (13) HTN (hypertension): Plan: Blood pressures were low on arrival and now normal -Holding lisinopril due to BP still low -Holding furosemide Continued Propranolol 120 mg daily with hold parameters (14) Hypokalemia: Plan: reaplced and resolved (15) Leukocytosis: Plan: As above, could be reactive to severe anemia versus from infection-now much improved with blood transfusion and treatment of infection-- resolved Follow CBC (16) Pressure injury of sacral region, stage 2: Plan: Wound was recently debrided, does not appear infected Continue wound care, offloading pressure (17) Spina bifida: Plan: Noted (18) 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 He may need extra help or perhaps rehab placement (21) Cough: Plan: Patient reports having a cough today. may consider speech eval, watched patient eat, he appears to tolerate it, but he reports he coughs when he drinks order chest xray Plan: will D/W Dr. Cornejo. Further orders as warrented. Admission and Anticipated Discharge Date Admission Date: December 23, 2020 Subjective Patient reports a cough today. Review of Systems Review of Systems: All systems reviewed & are unremarkable except as noted in HPI & below Physical Exam Physical Exam: General: Resting comfortably in his hospital bed. Does not appear ill or toxic Neck: No JVD. Negative hepatojugular reflex Cardiac: Distant heart sounds but regular rate and rhythm Lungs: Speaking full sentences on ambient air. No wheezes, rales or rhonchi today Abdomen: Normoactive X4. Soft and nontender in all quadrants. Extremities: mild tremors and rhythmic movements of hands No peripheral clubbing cyanosis or edema Mild coldness on his left foot. No erythema noted on either foot. Neuro: A&O X4 cranial nerves II through XII are grossly intact no focal neuro deficts Results & Data Results & Data ([facility]) Vital Signs (Past 12 Hours) Vital Signs Temp Pulse Resp BP BP Pulse Ox 01/05/21 19:12 36.7 C 79 18 133/76 98 01/05/21 15:15 36.5 C 76 18 129/76 95 01/05/21 11:11 36.4 C L 93 H 20 103/68 98 PG Care Time/CCT Total # of Minutes Spent Total Time Spent with Patient: Total time spent is greater than 50% in coordination of care (as documented) at patient's floor/unit and/or counseling patient: Coding Level of Care Code 32277 Subseq Hosp Care Lvl 2 Diagnoses Anemia D64.9 Anemia type: unspecified type Constipation K59.00 Metabolic encephalopathy G93.41 VIKY (acute kidney injury) N17.9 UTI (urinary tract infection) T83.511A; N39.0 Encounter type: initial encounter Indwelling urinary catheter type: indwelling urethral catheter Urinary tract infection type: catheter-associated UTI 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; L97.519 Diabetic ulcer of left foot E11.621; L97.529 Indwelling Plunkett catheter present Z96.0 Cerebral palsy G80.9 Cerebral palsy type: unspecified type Diabetes E11.40 Diabetes mellitus complication detail: with unspecified neuropathy Diabetes mellitus complication status: with neurologic complications Diabetes mellitus director long term care insulin use: without residential use Diabetes mellitus type: type 2 Hyperlipidemia E78.2 Hyperlipidemia type: mixed hyperlipidemia Cellulitis of right leg L03.115 HTN (hypertension) I10 Hypertension type: essential hypertension Hypokalemia E87.6 Leukocytosis D72.829 Pressure injury of sacral region, stage 2 L89.152 Spina bifida Q05.9 Stage III pressure ulcer of left buttock L89.323 Stage III pressure ulcer of right buttock L89.313 DVT prophylaxis Z29.9 Cough R05 (1) UTI (urinary tract infection) Encounter type: initial encounter Indwelling urinary catheter type: indwelling urethral catheter Urinary tract infection type: catheter-associated UTI Qualified Code(s): T83.511A - Infection and inflammatory reaction due to indwelling urethral catheter, initial encounter; N39.0 - Urinary tract infection, site not specified (2) Diabetes Diabetes mellitus complication detail: with unspecified neuropathy Diabetes mellitus complication status: with neurologic complications Diabetes mellitus director long term care insulin use: without director long term care use Diabetes mellitus type: type 2 Qualified Code(s): E11.40 - Type 2 diabetes mellitus with diabetic neuropathy, unspecified (3) Anemia Anemia type: unspecified type Qualified Code(s): D64.9 - Anemia, unspecified (4) Cerebral palsy Cerebral palsy type: unspecified type Qualified Code(s): G80.9 - Cerebral palsy, unspecified (5) Hyperlipidemia Hyperlipidemia type: mixed hyperlipidemia Qualified Code(s): E78.2 - Mixed hyperlipidemia (6) HTN (hypertension) Hypertension type: essential hypertension Qualified Code(s): I10 - Essential (primary) hypertension
[2021-01-05] MEDS: NIACIN 500 MG TAB PO SCH (21:37)
[2021-01-05] MEDS: bisacodyL 10 MG SUPP PR SCH (21:41)
[2021-01-06] MEDS: PROPRANOLOL HCL 60 MG LA CAP PO SCH (08:40)
[2021-01-06] MEDS: CHOLECALCIFEROL 1,000 UNITS 25 MCG TAB PO SCH (08:40)
[2021-01-06] MEDS: MAGNESIUM OXIDE 400 MG TAB PO SCH (08:40)
[2021-01-06] MEDS: FINASTERIDE 5 MG TAB PO SCH (08:40)
[2021-01-06] MEDS: SUCRALFATE 1 GM/10 ML UDC PO SCH ×4 (08:40→21:11)
[2021-01-06] MEDS: INSULIN GLARGINE SOLOSTAR 100 UNITS/ML 3 ML PEN SC SCH (08:41)
[2021-01-06] MEDS: PANTOprazole 40 MG TAB PO SCH ×2 (08:41→21:10)
[2021-01-06] MEDS: gemfibroziL 600 MG TAB PO SCH ×2 (08:41→21:08)
[2021-01-06] MEDS: INSULIN ASPART 100 UNITS/ML 3 ML PEN SC SCH ×4 (08:42→21:16)
[2021-01-06] MEDS: DOCUSATE SODIUM 100 MG CAP PO SCH ×2 (08:46→21:12)
[2021-01-06] MEDS: DOCUSATE SODIUM/SENNA 50/8.6MG TAB PO SCH ×2 (08:46→21:09)
[2021-01-06] MEDS: POTASSIUM CHLORIDE CRTAB 20 MEQ TABCR PO SCH ×2 (08:46→21:15)
[2021-01-06] MEDS: traMADol HCL 50 MG TABLET PO SCH (08:46)
--- NOTE | 2021-01-06 09:13 | XRay Report ---
XR chest 1V portable HISTORY: 65 years-old Male cough acute cough COMPARISON: 12/22/2020 TECHNIQUE: Portable AP view of the chest FINDINGS: Cardiac silhouette is mildly enlarged. Mild chronic interstitial coarsening of the lung bases. No pne umothorax, large pleural effusion, overt pulmonary edema or lobar airspace consolidation. Degenerativ e changes of the shoulders and spine. IMPRESSION: No acute process. ACT 112: Negative or not required by law. The above report was generated using voice recognition software. It may contain grammatical, syntax o r spelling errors. Electronically signed by: Primo Roland M.D. 01/06/2021 9:11 AM
--- NOTE | 2021-01-06 14:39 | Hospitalist Progress Note ---
Date of Service January 06, 2021 Assessment & Plan (1) Anemia: Plan: Patient presenting with complaints of generalized fatigue and weakness, laboratory findings with a hemoglobin of 5.5 Hemoglobin was 11.2 on 12/11 and then dropped down to 5.5 here on admission Currently, hemoglobin 7.8 but asymptomatic IV hydration currently on boardsuspect dilutional component Stop IVF Patient with mild bibasilar crackles but is not hypoxic or short of breath. Will give 1 dose of IV Lasix now Patient on PPI therapy for known esophagitis. Add Carafate CT abdomen/pelvis also was significant fecal load, no retroperitoneal bleed, but did have duodenitis seen. It is notable that he was recently on doxycycline for a wound infection. He finally had a very large bowel movement on 12/24 but did have some black stool and it was Hemoccult positive. Per nurse, was having multiple loose stools after bowel prep but this has since improved. Is status post 2 units PRBCs -- mild drop in H/H (likely dilutional component at this time) He is hemodynamically stable and asymptomatic at this point MCV is elevated, iron studies normal, B12 and folate normal This is most likely acute blood loss anemia, GI source EGD on 12/25 with esophagitis and gastritis, no duodenitis, no ulcers seen, biopsies taken GI plans for outpatient colonoscopy H/H dropped to 8.0, no signs of bleeding again, ferritin and iron has been normal when checked in the past repeat H/H is now above 9 will continue to monitor. Pending placement, will monitor Ordered doppler us for dvt which was negative. (2) Constipation: Plan: Treated and resolved initially with severe, chronic colon distension. Treated and resolved. Bowel regimen on board (3) Metabolic encephalopathy: Plan: Resolved, was secondary to acute kidney injury, severe constipation, and acute blood loss anemia (4) VIKY (acute kidney injury): Plan: VIKY on CKD stage III Creatinine on presentation 2.27, baseline appears to be 0.8. Secondary to mild hypotension and acute blood loss anemia Received IV fluids as well as 2 units PRBCs Creatinine now back to baseline -Avoid nephrotoxins -Trend BMP catheter is draining very well and he is making plenty of urine (5) UTI (urinary tract infection): Plan: catheter associated UTI Patient with chronic indwelling Plunkett catheter, and UA suspicious for infection on presentation. urine culture with E coli and Pseudomonas, some resistance to quinolones in Pseudomonas on cefepime q8 (today makes day #10/20) would need 14 days for complicated UTI involving pseudomonas. may consider gent. bladder irrigation assisted given indwelling plunkett catheter Will consult IV team for UGS IV for assisted abx therapy as plan is for SNF looking into [facility], might take a few days case mgmt on board (6) Diabetic ulcer of right foot: Plan: Recently seen at wound care center, cultures grew MSSA and was treated with Bactrim and then doxycycline as an outpatient foot x-ray of right foot was negative for osteomyelitis Continue wound care here wound cultures collected on 12/22 growing coagulase-negative Staphylococcus-this is a surface culture, likely skin contaminant No cellulitis seen and do not think this needs any further antibiotic therapy (7) Diabetic ulcer of left foot: Plan: Local wound care Wound care nurse consultation left foot x-ray 12/26: no osteomyelitis arterial doppler: no PAD (8) Indwelling Plunkett catheter present: Plan: With a history of neurogenic bladder secondary to cerebral palsy Also noted to have BPH Continue finasteride (9) Cerebral palsy: Plan: Noted Supportive care, does not walk and uses wheelchair PT/OT consults anticipate him needing SNF for antibiotics and wound care for next 10-14 days (10) Diabetes: Plan: With some hyperglycemia on 12/24, into the 400s Holding home Metformin Continue NovoLog supplemental insulin and tighten down carbohydrate coverage and correction factor, and increase Lantus to 25 units reduced Lantus to 15 units this AM due to fasting sugar in low 100's and poor oral intake (11) Hyperlipidemia: Plan: Continue Lopid, niacin (12) Cellulitis of right leg: Plan: As above, resolved (13) HTN (hypertension): Plan: Blood pressures were low on arrival and now normal -Holding lisinopril due to BP still low -Holding furosemide Continued Propranolol 120 mg daily with hold parameters (14) Hypokalemia: Plan: reaplced and resolved (15) Leukocytosis: Plan: As above, could be reactive to severe anemia versus from infection-now much improved with blood transfusion and treatment of infection-- resolved Follow CBC (16) Pressure injury of sacral region, stage 2: Plan: Wound was recently debrided, does not appear infected Continue wound care, offloading pressure (17) Spina bifida: Plan: Noted (18) 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 He may need extra help or perhaps rehab placement (21) Cough: Plan: Patient reports having a cough today. may consider speech eval, watched patient eat, he appears to tolerate it, but he reports he coughs when he drinks order chest xray: this was negative Plan: will D/W Dr. Cornejo. Further orders as warrented. Admission and Anticipated Discharge Date Admission Date: December 23, 2020 Subjective Patient reports no new symptoms. Review of Systems Review of Systems: All systems reviewed & are unremarkable except as noted in HPI & below Physical Exam Physical Exam: General: Resting comfortably in his hospital bed. Does not appear ill or toxic Neck: No JVD. Negative hepatojugular reflex Cardiac: Distant heart sounds but regular rate and rhythm Lungs: Speaking full sentences on ambient air. No wheezes, rales or rhonchi today Abdomen: Normoactive X4. Soft and nontender in all quadrants. Extremities: mild tremors and rhythmic movements of hands No peripheral clubbing cyanosis or edema Mild coldness on his left foot. No erythema noted on either foot. Neuro: A&O X4 cranial nerves II through XII are grossly intact no focal neuro deficts Results & Data Results & Data ([facility]) Vital Signs (Past 12 Hours) Vital Signs Temp Pulse Resp BP BP Pulse Ox 01/06/21 11:10 36.8 C 107 H 20 120/74 96 01/06/21 08:10 36.8 C 99 H 20 150/88 H 97 01/06/21 04:40 36.6 C 75 16 108/62 97 PG Care Time/CCT Total # of Minutes Spent Total Time Spent with Patient: Total time spent is greater than 50% in coordi nation of care (as documented) at patient's floor/unit and/or counseling patient: Coding Level of Care Code 31445 Subseq Hosp Care Lvl 2 Diagnoses Anemia D64.9 Anemia type: unspecified type Constipation K59.00 Metabolic encephalopathy G93.41 VIKY (acute kidney injury) N17.9 UTI (urinary tract infection) T83.511A; N39.0 Encounter type: initial encounter Indwelling urinary catheter type: indwelling urethral catheter Urinary tract infection type: catheter-associated UTI 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; L97.519 Diabetic ulcer of left foot E11.621; L97.529 Indwelling Plunkett catheter present Z96.0 Cerebral palsy G80.9 Cerebral palsy type: unspecified type Diabetes E11.40 Diabetes mellitus complication detail: with unspecified neuropathy Diabetes mellitus complication status: with neurologic complications Diabetes mellitus assisted insulin use: without assisted use Diabetes mellitus type: type 2 Hyperlipidemia E78.2 Hyperlipidemia type: mixed hyperlipidemia Cellulitis of right leg L03.115 HTN (hypertension) I10 Hypertension type: essential hypertension Hypokalemia E87.6 Leukocytosis D72.829 Pressure injury of sacral region, stage 2 L89.152 Spina bifida Q05.9 Stage III pressure ulcer of left buttock L89.323 Stage III pressure ulcer of right buttock L89.313 DVT prophylaxis Z29.9 Cough R05 (1) UTI (urinary tract infection) Encounter type: initial encounter Indwelling urinary catheter type: indwelling urethral catheter Urinary tract infection type: catheter-associated UTI Qualified Code(s): T83.511A - Infection and inflammatory reaction due to indwelling urethral catheter, initial encounter; N39.0 - Urinary tract infection, site not specified (2) Diabetes Diabetes mellitus complication detail: with unspecified neuropathy Diabetes mellitus complication status: with neurologic complications Diabetes mellitus assisted insulin use: without computer terminal operator use Diabetes mellitus type: type 2 Qualified Code(s): E11.40 - Type 2 diabetes mellitus with diabetic neuropathy, unspecified (3) Anemia Anemia type: unspecified type Qualified Code(s): D64.9 - Anemia, unspecified (4) Cerebral palsy Cerebral palsy type: unspecified type Qualified Code(s): G80.9 - Cerebral palsy, unspecified (5) Hyperlipidemia Hyperlipidemia type: mixed hyperlipidemia Qualified Code(s): E78.2 - Mixed hyperlipidemia (6) HTN (hypertension) Hypertension type: essential hypertension Qualified Code(s): I10 - Essential (primary) hypertension
[2021-01-06] MEDS: NIACIN 500 MG TAB PO SCH (21:10)
[2021-01-06] MEDS: bisacodyL 10 MG SUPP PR SCH (21:11)
[2021-01-07] MEDS: CHOLECALCIFEROL 1,000 UNITS 25 MCG TAB PO SCH (08:33)
[2021-01-07] MEDS: DOCUSATE SODIUM/SENNA 50/8.6MG TAB PO SCH ×2 (08:34→20:54)
[2021-01-07] MEDS: DOCUSATE SODIUM 100 MG CAP PO SCH ×2 (08:34→20:54)
[2021-01-07] MEDS: PROPRANOLOL HCL 60 MG LA CAP PO SCH (08:35)
[2021-01-07] MEDS: gemfibroziL 600 MG TAB PO SCH ×2 (08:35→20:51)
[2021-01-07] MEDS: PANTOprazole 40 MG TAB PO SCH ×2 (08:35→20:51)
[2021-01-07] MEDS: FINASTERIDE 5 MG TAB PO SCH (08:35)
[2021-01-07] MEDS: MAGNESIUM OXIDE 400 MG TAB PO SCH (08:35)
[2021-01-07] MEDS: SUCRALFATE 1 GM/10 ML UDC PO SCH ×4 (08:36→20:52)
[2021-01-07] MEDS: INSULIN GLARGINE SOLOSTAR 100 UNITS/ML 3 ML PEN SC SCH (08:36)
[2021-01-07] MEDS: INSULIN ASPART 100 UNITS/ML 3 ML PEN SC SCH ×4 (08:37→20:47)
[2021-01-07] MEDS: traMADol HCL 50 MG TABLET PO SCH (08:42)
[2021-01-07] MEDS: POTASSIUM CHLORIDE CRTAB 20 MEQ TABCR PO SCH ×2 (08:42→20:54)
--- NOTE | 2021-01-07 11:13 | Hospitalist Progress Note ---
Date of Service January 07, 2021 Assessment & Plan (1) Anemia: Plan: Patient presenting with complaints of generalized fatigue and weakness, laboratory findings with a hemoglobin of 5.5 Hemoglobin was 11.2 on 12/11 and then dropped down to 5.5 here on admission Currently, hemoglobin 7.8 but asymptomatic IV hydration currently on boardsuspect dilutional component Stop IVF Patient with mild bibasilar crackles but is not hypoxic or short of breath. Will give 1 dose of IV Lasix now Patient on PPI therapy for known esophagitis. Add Carafate CT abdomen/pelvis also was significant fecal load, no retroperitoneal bleed, but did have duodenitis seen. It is notable that he was recently on doxycycline for a wound infection. He finally had a very large bowel movement on 12/24 but did have some black stool and it was Hemoccult positive. Per nurse, was having multiple loose stools after bowel prep but this has since improved. Is status post 2 units PRBCs -- mild drop in H/H (likely dilutional component at this time) He is hemodynamically stable and asymptomatic at this point MCV is elevated, iron studies normal, B12 and folate normal This is most likely acute blood loss anemia, GI source EGD on 12/25 with esophagitis and gastritis, no duodenitis, no ulcers seen, biopsies taken GI plans for outpatient colonoscopy repeat H/H is now above 9 will continue to monitor. Pending placement, will monitor Ordered doppler us for dvt which was negative. (2) Constipation: Plan: Treated and resolved initially with severe, chronic colon distension. Treated and resolved. Bowel regimen on board (3) Metabolic encephalopathy: Plan: Resolved, was secondary to acute kidney injury, severe constipation, and acute blood loss anemia (4) VIKY (acute kidney injury): Plan: VIKY on CKD stage III Creatinine on presentation 2.27, baseline appears to be 0.8. Secondary to mild hypotension and acute blood loss anemia Received IV fluids as well as 2 units PRBCs Creatinine now back to baseline -Avoid nephrotoxins -Trend BMP catheter is draining very well and he is making plenty of urine (5) UTI (urinary tract infection): Plan: catheter associated UTI Patient with chronic indwelling Plunkett catheter, and UA suspicious for infection on presentation. urine culture with E coli and Pseudomonas, some resistance to quinolones in Pseudomonas on cefepime q8 (today makes day #10/20) would need 14 days for complicated UTI involving pseudomonas. may consider gent. bladder irrigation senior living given indwelling plunkett catheter Will consult IV team for UGS IV for intermodal dispatcher abx therapy as plan is for SNF looking into [facility], might take a few days case mgmt on board (6) Diabetic ulcer of right foot: Plan: Recently seen at wound care center, cultures grew MSSA and was treated with Bactrim and then doxycycline as an outpatient foot x-ray of right foot was negative for osteomyelitis Continue wound care here wound cultures collected on 12/22 growing coagulase-negative Staphylococcus-this is a surface culture, likely skin contaminant No cellulitis seen and do not think this needs any further antibiotic therapy (7) Diabetic ulcer of left foot: Plan: Local wound care Wound care nurse consultation left foot x-ray 12/26: no osteomyelitis arterial doppler: no PAD (8) Indwelling Plunkett catheter present: Plan: With a history of neurogenic bladder secondary to cerebral palsy Also noted to have BPH Continue finasteride (9) Cerebral palsy: Plan: Noted Supportive care, does not walk and uses wheelchair PT/OT consults anticipate him needing SNF for antibiotics and wound care for next 10-14 days (10) Diabetes: Plan: With some hyperglycemia on 12/24, into the 400s Holding home Metformin Continue NovoLog supplemental insulin and tighten down carbohydrate coverage and correction factor, and increase Lantus to 25 units reduced Lantus to 15 units this AM due to fasting sugar in low 100's and poor oral intake (11) Hyperlipidemia: Plan: Continue Lopid, niacin (12) Cellulitis of right leg: Plan: As above, resolved (13) HTN (hypertension): Plan: Blood pressures were low on arrival and now normal -Holding lisinopril due to BP still low -Holding furosemide Continued Propranolol 120 mg daily with hold parameters (14) Hypokalemia: Plan: reaplced and resolved (15) Leukocytosis: Plan: As above, could be reactive to severe anemia versus from infection-now much improved with blood transfusion and treatment of infection-- resolved Follow CBC (16) Pressure injury of sacral region, stage 2: Plan: Wound was recently debrided, does not appear infected Continue wound care, offloading pressure (17) Spina bifida: Plan: Noted (18) 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 He may need extra help or perhaps rehab placement (21) Cough: Plan: Patient reports having a cough over past 3 days. may consider speech eval, watched patient eat, he appears to tolerate it, but he reports he coughs when he drinks order chest xray: this was negative will repeat on 01/08 Plan: will D/W Dr. Cornejo. Further orders as warrented. Admission and Anticipated Discharge Date Admission Date: December 23, 2020 Subjective Patient reports his cough is better today. He reportsno new symptoms. Review of Systems Review of Systems: All systems reviewed & are unremarkable except as noted in HPI & below Physical Exam Physical Exam: General: Resting comfortably in his hospital bed. Does not appear ill or toxic Neck: No JVD. Negative hepatojugular reflex Cardiac: Distant heart sounds but regular rate and rhythm Lungs: Speaking full sentences on ambient air. No wheezes, rales or rhonchi today Abdomen: Normoactive X4. Soft and nontender in all quadrants. Extremities: mild tremors and rhythmic movements of hands No peripheral clubbing cyanosis or edema, small dressing on left toe and right heel Mild coldness on his left foot. No erythema noted on either foot. Neuro: A&O X4 cranial nerves II through XII are grossly intact no focal neuro deficts SMALL DRESSING ON LEFT TOE AND RIGHT HEEL Results & Data Results & Data ([facility]) Vital Signs (Past 12 Hours) Vital Signs Temp Pulse Pulse Resp BP BP Pulse Ox 01/07/21 07:59 36.4 C L 97 H 18 132/80 99 01/07/21 03:00 36.5 C 80 18 104/58 L 96 01/07/21 01:14 74 PG Care Time/CCT Total # of Minutes Spent Total Time Spent with Patient: Total time spent is greater than 50% in coordination of care (as documented) at patient's floor/unit and/or counseling patient: Coding Level of Care Code 72113 Subseq Hosp Care Lvl 2 Diagnoses Anemia D64.9 Anemia type: unspecified type Constipation K59.00 Metabolic encephalopathy G93.41 VIKY (acute kidney injury) N17.9 UTI (urinary tract infection) T83.511A; N39.0 Encounter type: initial encounter Indwelling urinary catheter type: indwelling urethral catheter Urinary tract infection type: catheter-associated UTI 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; L97.519 Diabetic ulcer of left foot E11.621; L97.529 Indwelling Plunkett catheter present Z96.0 Cerebral palsy G80.9 Cerebral palsy type: unspecified type Diabetes E11.40 Diabetes mellitus complication detail: with unspecified neuropathy Diabetes mellitus complication status: with neurologic complications Diabetes mellitus senior living insulin use: without intermodal dispatcher use Diabetes mellitus type: type 2 Hyperlipidemia E78.2 Hyperlipidemia type: mixed hyperlipidemia Cellulitis of right leg L03.115 HTN (hypertension) I10 Hypertension type: essential hypertension Hypokalemia E87.6 Leukocytosis D72.829 Pressure injury of sacral region, stage 2 L89.152 Spina bifida Q05.9 Stage III pressure ulcer of left buttock L89.323 Stage III pressure ulcer of right buttock L89.313 DVT prophylaxis Z29.9 Cough R05 (1) UTI (urinary tract infection) Encounter type: initial encounter Indwelling urinary catheter type: indwelling urethral catheter Urinary tract infection type: catheter-associated UTI Qualified Code(s): T83.511A - Infection and inflammatory reaction due to indwelling urethral catheter, initial encounter; N39.0 - Urinary tract infection, site not specified (2) Diabetes Diabetes mellitus complication detail: with unspecified neuropathy Diabetes mellitus complication status: with neurologic complications Diabetes mellitus senior living insulin use: without intermodal dispatcher use Diabetes mellitus type: type 2 Qualified Code(s): E11.40 - Type 2 diabetes mellitus with diabetic neuropathy, unspecified (3) Anemia Anemia type: unspecified type Qualified Code(s): D64.9 - Anemia, unspecified (4) Cerebral palsy Cerebral palsy type: unspecified type Qualified Code(s): G80.9 - Cerebral palsy, unspecified (5) Hyperlipidemia Hyperlipidemia type: mixed hyperlipidemia Qualified Code(s): E78.2 - Mixed hyperlipidemia (6) HTN (hypertension) Hypertension type: essential hypertension Qualified Code(s): I10 - Essential (primary) hypertension
--- NOTE | 2021-01-07 12:38 | XRay Report ---
XR chest 1V portable HISTORY: 65 years-old Male cough acute cough COMPARISON: 01/06/2021 TECHNIQUE: Portable AP view of the chest FINDINGS: Cardiac silhouette is enlarged. Hypoinflation with mild bronchovascular crowding. No pneumothorax, pl eural effusion, airspace consolidation or overt pulmonary edema. Degenerative changes of the shoulder s and spine. Gaseous distention of the stomach. IMPRESSION: Hypoinflation without acute process. ACT 112: Negative or not required by law. The above report was generated using voice recognition software. It may contain grammatical, syntax o r spelling errors. Electronically signed by: Primo Roland M.D. 01/07/2021 12:36 PM
[2021-01-07] MEDS: bisacodyL 10 MG SUPP PR SCH (20:39)
[2021-01-07] MEDS: NIACIN 500 MG TAB PO SCH (20:50)
[2021-01-08] MEDS: FINASTERIDE 5 MG TAB PO SCH (09:02)
[2021-01-08] MEDS: CHOLECALCIFEROL 1,000 UNITS 25 MCG TAB PO SCH (09:02)
[2021-01-08] MEDS: gemfibroziL 600 MG TAB PO SCH ×2 (09:02→20:48)
[2021-01-08] MEDS: MAGNESIUM OXIDE 400 MG TAB PO SCH (09:03)
[2021-01-08] MEDS: PANTOprazole 40 MG TAB PO SCH ×2 (09:03→20:48)
[2021-01-08] MEDS: PROPRANOLOL HCL 60 MG LA CAP PO SCH (09:03)
[2021-01-08] MEDS: traMADol HCL 50 MG TABLET PO SCH (09:03)
[2021-01-08] MEDS: SUCRALFATE 1 GM/10 ML UDC PO SCH ×4 (09:04→20:49)
[2021-01-08] MEDS: INSULIN GLARGINE SOLOSTAR 100 UNITS/ML 3 ML PEN SC SCH (09:10)
[2021-01-08] MEDS: INSULIN ASPART 100 UNITS/ML 3 ML PEN SC SCH ×4 (09:10→20:50)
[2021-01-08] MEDS: POTASSIUM CHLORIDE CRTAB 20 MEQ TABCR PO SCH ×2 (09:16→20:53)
[2021-01-08] MEDS: DOCUSATE SODIUM/SENNA 50/8.6MG TAB PO SCH ×3 (09:16→20:53)
[2021-01-08] MEDS: DOCUSATE SODIUM 100 MG CAP PO SCH ×3 (09:16→20:53)
[2021-01-08] MEDS: guaiFENesin/CODEINE 100MG/10MG 5ML UDC PO PRN (09:16)
--- NOTE | 2021-01-08 15:43 | Hospitalist Progress Note ---
Date of Service January 08, 2021 Assessment & Plan (1) Anemia: Plan: Patient presented with complaints of generalized fatigue and weakness, laboratory findings with a hemoglobin of 5.5. - Hemoglobin was 11.2 on 12/11 and then dropped down to 5.5 here on admission. - EGD done on 12/25 with some esophagitis, but no major ulcer noted. -> GI plans for outpatient colonoscopy. - Hgb stable around 9 on last draws. Will recheck tomorrow. (2) Metabolic encephalopathy: Plan: Was secondary to acute kidney injury, severe constipation, and acute blood loss anemia. - Resolved (3) Cough: Plan: Patient reports having a cough over past 3 days. No major change in last 3 days either. No shortness of breath or fever with it. No sputum production. - Repeat CXRs stable. - Will get procalcitonin, BNP with tomorrow's labs. Not on ACEi. Possibly also sinus drainage, though developed in the hospital. (4) HTN (hypertension): Plan: Blood pressures were low on arrival and now normal. - Holding lisinopril - Holding furosemide - Continued Propranolol 120 mg daily with hold parameters (5) VIKY (acute kidney injury): Plan: VIKY on CKD stage III. Creatinine on presentation 2.27, baseline appears to be 0.8. Secondary to mild hypotension and acute blood loss anemia. - Cr was 0.8 on 01/03; back to baseline. (6) Diabetes: Plan: With some hyperglycemia on 12/24, into the 400s. A1c is 6.5% in 12/2020. - Holding home Metformin - Reduced Lantus to 15 units this AM due to fasting sugar in low 100's and poor oral intake. Has been getting nearly 40 units of short-acting insulin daily, though his overnight sugars appear to be pretty stable. (7) UTI (urinary tract infection): Plan: Catheter-associated UTI. Patient with chronic indwelling Hernandez catheter, and UA suspicious for infection on presentation. - Finished abx while in the hospital. (8) Diabetic ulcer of right foot: Plan: Recently seen at wound care center. Culture from 12/13/2020 grew MSSA. Culture from 12/22 grew Coag(-) Staph. Was treated with Bactrim and then doxycycline as an outpatient. - Foot x-ray of right foot was negative for osteomyelitis on 12/13. - No cellulitis seen and do not think this needs any further antibiotic therapy - Continue wound care (9) Diabetic ulcer of left foot: Plan: Left foot x-ray 12/26: no osteomyelitis. - Local wound care - Wound care nurse consultation (10) Indwelling Hernandez catheter present: Plan: With a history of neurogenic bladder secondary to cerebral palsy. Also noted to have BPH. - Continue finasteride - Continue chronic Hernandez (11) Cerebral palsy: Plan: Noted. - Supportive care, does not walk and uses wheelchair (12) Hyperlipidemia: Plan: - Continue Lopid, niacin (13) Cellulitis of right leg: Plan: Resolved. (14) Pressure injury of sacral region, stage 2: Plan: Wound was recently debrided. - Continue wound care, offloading pressure (15) Spina bifida: Plan: Noted (16) DVT prophylaxis: Plan: SCDs - No heparin due to concern for GI bleed Admission and Anticipated Discharge Date Admission Date: December 23, 2020 Subjective Still with some cough. Cough syrup didn't help that much. Reports no fevers/chills, chest pain, shortness of breath, abdominal pain, nausea, or vomiting. Physical Exam Constitutional: WD/WN, vitals as above Eyes: EOM intact bilaterally; no conjunctival abnormality ENMT: external ear and nose normal, oropharynx normal Neck: trachea midline, no thyromegaly normal visual inspection Respiratory: normal respiratory effort, lungs clear to auscultation no respiratory distress Cardiovascular: RRR, no murmur, no edema Gastrointestinal (Abdomen): Inspection/Auscultation: abdomen normal to inspection; abdomen not distended Musculoskeletal: no cyanosis or clubbing, extremities motor strength 5/5 Skin: no rashes, warm and dry Neurologic: moves all extremities and awake Psychiatric: Orientation: alert, oriented to person and cooperative Results & Data Results & Data ([facility]) Vital Signs (Past 12 Hours) Vital Signs Temp Pulse Resp BP Pulse Ox 01/08/21 07:40 36.5 C 90 16 144/84 H 96 PG Care Time/CCT Total # of Minutes Spent Total Time Spent with Patient: Total time spent is greater than 50% in coordination of care (as documented) at patient's floor/unit and/or counseling patient: Coding Level of Care Code 75837 Subseq Hosp Care Lvl 3 Diagnoses Anemia D64.9 Anemia type: unspecified type Metabolic encephalopathy G93.41 VIKY (acute kidney injury) N17.9 UTI (urinary tract infection) T83.511A; N39.0 Encounter type: initial encounter Indwelling urinary catheter type: indwelling urethral catheter Urinary tract infection type: catheter-associated UTI 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; L97.519 Diabetic ulcer of left foot E11.621; L97.529 Indwelling Hernandez catheter present Z96.0 Cerebral palsy G80.9 Cerebral palsy type: unspecified type Diabetes E11.40 Diabetes mellitus type: type 2 Diabetes mellitus correction insulin use: without terminal operations manager use Diabetes mellitus complication status: with neurologic complications Diabetes mellitus complication detail: with unspecified neuropathy Hyperlipidemia E78.2 Hyperlipidemia type: mixed hyperlipidemia Cellulitis of right leg L03.115 HTN (hypertension) I10 Hypertension type: essential hypertension Pressure injury of sacral region, stage 2 L89.152 Spina bifida Q05.9 DVT prophylaxis Z29.9 Cough R05 (1) Anemia Anemia type: unspecified type Qualified Code(s): D64.9 - Anemia, unspecified (2) UTI (urinary tract infection) Encounter type: initial encounter Indwelling urinary catheter type: indwelling urethral catheter Urinary tract infection type: catheter-associated UTI Qualified Code(s): T83.511A - Infection and inflammatory reaction due to indwelling urethral catheter, initial encounter; N39.0 - Urinary tract infection, site not specified (3) Cerebral palsy Cerebral palsy type: unspecified type Qualified Code(s): G80.9 - Cerebral palsy, unspecified (4) Diabetes Diabetes mellitus type: type 2 Diabetes mellitus correction insulin use: without terminal operations manager use Diabetes mellitus complication status: with neurologic complications Diabetes mellitus complication detail: with unspecified neuropathy Qualified Code(s): E11.40 - Type 2 diabetes mellitus with diabetic neuropathy, unspecified (5) Hyperlipidemia Hyperlipidemia type: mixed hyperlipidemia Qualified Code(s): E78.2 - Mixed hyperlipidemia (6) HTN (hypertension) Hypertension type: essential hypertension Qualified Code(s): I10 - Essential (primary) hypertension
[2021-01-08] MEDS: NIACIN 500 MG TAB PO SCH (20:47)
[2021-01-08] MEDS: bisacodyL 10 MG SUPP PR SCH (20:48)
[2021-01-09 07:17] LABS: Hematocrit (blood only) 29.9 % (42-52); Hemoglobin 9.6 g/dL (14.0-18.0); Mean Corpuscular Hemoglobin 32.4 pg (25-34); Mean Corpuscular Hgb Conc 32.1 g/dL (32-36); Mean Platelet Volume 9.1 fL (7.4-10.4); Platelet Count 248 K/uL (130-400); RDW Coefficient of Variation 16.5 % (11.5-14.5); RDW Standard Deviation 60.3 fL (36.4-46.3); Red Blood Count 2.96 M/uL (4.7-6.1); White Blood Count 5.33 K/uL (4.8-10.8)
[2021-01-09 07:52] LABS: Est GFR (African American) 118.2 ml/min; Potassium 3.7 mmol/L (3.5-5.1)
[2021-01-09 07:53] LABS: BUN Creatinine Ratio 37.4 (10-20); Calcium 9.4 mg/dl (8.5-10.1); Magnesium 2.1 mg/dl (1.8-2.4)
[2021-01-09] MEDS: INSULIN ASPART 100 UNITS/ML 3 ML PEN SC SCH ×2 (09:12→13:10)
[2021-01-09] MEDS: DOCUSATE SODIUM/SENNA 50/8.6MG TAB PO SCH (09:21)
[2021-01-09] MEDS: INSULIN GLARGINE SOLOSTAR 100 UNITS/ML 3 ML PEN SC SCH (09:21)
[2021-01-09] MEDS: DOCUSATE SODIUM 100 MG CAP PO SCH (09:22)
[2021-01-09] MEDS: POTASSIUM CHLORIDE CRTAB 20 MEQ TABCR PO SCH (09:23)
[2021-01-09] MEDS: traMADol HCL 50 MG TABLET PO SCH (09:23)
[2021-01-09] MEDS: PROPRANOLOL HCL 60 MG LA CAP PO SCH (09:23)
[2021-01-09] MEDS: MAGNESIUM OXIDE 400 MG TAB PO SCH (09:24)
[2021-01-09] MEDS: PANTOprazole 40 MG TAB PO SCH (09:24)
[2021-01-09] MEDS: FINASTERIDE 5 MG TAB PO SCH (09:26)
[2021-01-09] MEDS: gemfibroziL 600 MG TAB PO SCH (09:26)
[2021-01-09] MEDS: SUCRALFATE 1 GM/10 ML UDC PO SCH ×3 (09:27→16:20)
[2021-01-09] MEDS: CHOLECALCIFEROL 1,000 UNITS 25 MCG TAB PO SCH (09:27)
--- NOTE | 2021-01-09 18:40 | Discharge Summary ---
Date of Service January 09, 2021 Principal Diagnosis GI bleed causing anemia Discharge Exam Constitutional WD/WN, vitals as above Eyes EOM intact bilaterally; no conjunctival abnormality ENMT external ear and nose normal, oropharynx normal Neck trachea midline, no thyromegaly normal visual inspection Respiratory normal respiratory effort, lungs clear to auscultation no respiratory distress Cardiovascular RRR, no murmur, no edema Gastrointestinal (Abdomen) Inspection/Auscultation: abdomen normal to inspection; abdomen not distended Musculoskeletal no cyanosis or clubbing, extremities motor strength 5/5 Skin no rashes, warm and dry Neurologic moves all extremities and awake Psychiatric Orientation: alert, oriented to person and cooperative Discharge Data Allergies Allergy/AdvReac Type Severity Reaction Status Date / Time sulfamethoxazole AdvReac Mild Nausea Verified 12/23/20 18:50 [From Bactrim] trimethoprim [From Bactrim] AdvReac Mild Nausea Verified 12/23/20 18:50 Consultations 12/23/20 02:24 ED Decision to Admit Stat 12/23/20 08:55 Consult Gastroenterology Routine Procedures Performed Operation Date: 12/25/20 16:45 Actual Procedures p EGD Biopsy Cytology - Jose Galvan MD Ordered Studies 12/23/20 00:19 CT abd pelvis wo con Urgent CT head/brain wo con Urgent 12/27/20 08:11 US arterial duplex [facility] Routine 01/03/21 14:40 US venous doppler [facility] Urgent Hospital Course (1) Anemia: Patient presented with complaints of generalized fatigue and weakness, laboratory findings with a hemoglobin of 5.5. - Hemoglobin was 11.2 on 12/11 and then dropped down to 5.5 here on admission. - EGD done on 12/25 with some esophagitis, but no major ulcer noted. -> GI plans for outpatient colonoscopy. - Hgb stable around 9 on last draws. (2) Metabolic encephalopathy: Was secondary to acute kidney injury, severe constipation, and acute blood loss anemia. - Resolved (3) Cough: Patient reports having a cough over past 3 days. No major change in last 3 days either. No shortness of breath or fever with it. No sputum production. - Repeat CXRs stable. - Procalcitonin, BNP were both normal. Covid negative. Likely post-nasal drip or other viral cause. Seemed to be self-resolving by discharge. (4) HTN (hypertension): Blood pressures were low on arrival and now normal. - Continue lisinopril - Held furosemide while inpatient. Resume on discharge, but monitor volume status and kidneys. - Continued Propranolol 120 mg daily with hold parameters (5) VIKY (acute kidney injury): VIKY on CKD stage III. Creatinine on presentation 2.27, baseline appears to be 0.8. Secondary to mild hypotension and acute blood loss anemia. - Cr was 0.8 on 01/03; back to baseline. (6) Diabetes: With some hyperglycemia on 12/24, into the 400s. A1c is 6.5% in 12/2020. - Resume home Metformin on discharge. (7) UTI (urinary tract infection): Catheter-associated UTI. Patient with chronic indwelling Hernandez catheter, and UA suspicious for infection on presentation. - Finished abx while in the hospital. (8) Diabetic ulcer of right foot: Recently seen at wound care center. Culture from 12/13/2020 grew MSSA. Culture from 12/22 grew Coag(-) Staph. Was treated with Bactrim and then doxycycline as an outpatient. - Foot x-ray of right foot was negative for osteomyelitis on 12/13. - No cellulitis seen and do not think this needs any further antibiotic therapy - Continue wound care (9) Diabetic ulcer of left foot: Left foot x-ray 12/26: no osteomyelitis. - Local wound care - Wound care nurse consultation (10) Indwelling Hernandez catheter present: With a history of neurogenic bladder secondary to cerebral palsy. Also noted to have BPH. - Continue finasteride - Continue chronic Heranndez (11) Cerebral palsy: Noted. - Supportive care, does not walk and uses wheelchair (12) Hyperlipidemia: - Continue Lopid, niacin (13) Cellulitis of right leg: Resolved. (14) Pressure injury of sacral region, stage 2: Wound was recently debrided. - Continue wound care, offloading pressure (15) Spina bifida: Noted (16) DVT prophylaxis: SCDs - No heparin due to concern for GI bleed Total Time Total Time Spent Total Time Spent (In Minutes): 35 Discharge Plan Discharge Items Patient Disposition: Transfer [facility] Reason For Visit: ANEMIA Discharge Diagnosis: Likely GI bleed causing anemia Activity: Resume your previous activity Non-emergency contact: Primary Care Provider Call non-emergency contact if: your symptoms worsen and your temperature is above 101 Follow-up/Referrals: Gaudencio Chowdhury MD [Primary Care Provider] - Jose Galvan MD [Physician] - (Please follow up in 2-3 weeks for scheduling of your colonoscopy.) Diet: Carb Consistent or DM2 and Heart Healthy Addtl Attending Provider Instructions: Mr. Humphreys was admitted to the hospital with anemia with hgb of 5.5. He had an EGD here which showed some esophagitis, but no major ulcers. Colonoscopy is planned. He received 2 units of blood and his hemoglobin has been stable ~9 for several days now. Holding aspirin and doxycycline on discharge. Aspirin I believe was for primary prevention and not worth risk at this point given concern for GI bleed. Doxycycline was likely from [facility] and can be restarted per them. Pending Studies at Discharge: No Stand-Alone Forms: My [facility] Skilled Items Patient informed of condition?: No DNR: No Discharge Level of Care: Skilled Communicable Disease: No Discharge Prognosis: Stable Lines: None Urinary Catheter: Yes Medications and DC Order Prescriptions: New pantoprazole 40 mg Tablet,Delayed Release (Dr/Ec) 40 mg PO BID Qty: 0 RF: 0 sucralfate 100 mg/mL Suspension 1 g PO QID Qty: 0 RF: 0 Continued (DME) Wheelchair (Manual) Device See Dose Instructions .ROUTE .MEDSUPPLY Qty: 1 RF: 0 (DME) diaper,brief,adult,disposable Misc See Dose Instructions .ROUTE .MEDSUPPLY Qty: 48 RF: 2 niacin [Niacor] 500 mg tablet 2,500 mg PO HS Qty: 150 RF: 11 finasteride 5 mg tablet 5 mg PO QAM Qty: 30 RF: 11 (DME) OneTouch Ultra Blue Test Strip Strip See Dose Instructions .ROUTE .MEDSUPPLY Qty: 100 RF: 5 gemfibrozil 600 mg tablet 600 mg PO BID Qty: 180 RF: 3 furosemide 40 mg tablet 40 mg PO DAILY Qty: 90 RF: 1 polyethylene glycol 3350 [Miralax] 17 gram/dose powder 17 g PO DAILY PRN (Reason: Constipation) Qty: 119 RF: 11 lisinopril 2.5 mg tablet 2.5 mg PO QAM Qty: 90 RF: 3 propranolol 120 mg capsule,extended release 24hr 120 mg PO DAILY Qty: 30 RF: 5 sennosides-docusate sodium [Senna with Docusate Sodium] 8.6-50 mg tablet 1 tab PO BID Qty: 60 RF: 5 miscellaneous medical supply Misc 1 ea miscellaneous ONCE Qty: 1 RF: 0 acetic acid 0.25 % solution 25 ml IR ONCE Qty: 1000 RF: 5 (DME) blood-glucose meter [OneTouch Verio Meter] misc See Dose Instructions .ROUTE .MEDSUPPLY Qty: 1 RF: 0 cholecalciferol (vitamin D3) 1,000 unit tablet 3,000 units PO QAM RF: 0 miconazole nitrate 2 % cream 1 appln TOP BID Qty: 30 RF: 6 magnesium oxide 400 mg (241.3 mg magnesium) tablet 400 mg PO QAM RF: 0 metformin 1,000 mg tablet 1,000 mg PO BID RF: 0 docusate sodium 100 mg Tablet 100 mg PO BID RF: 0 tramadol 50 mg tablet 50 mg PO DAILY RF: 0 potassium chloride 20 mEq tablet extended release 20 meq PO DAILY RF: 0 Discontinued aspirin [Aspirin Low Dose] 81 mg Tablet,Delayed Release (Dr/Ec) 81 mg PO QAM RF: 0 doxycycline hyclate 100 mg capsule 100 mg PO BID RF: 0 Discharge Orders: Discharge Order (Routine); Ordered 01/09/21 Ordered By: Tom Kim/Other Patient Handouts: High Blood Sugar (Hyperglycemia), Hypoglycemia (Low Blood Sugar), Managing Type 2 Diabetes Admission Data Admit Date/Time: 12/23/20 03:17 Attending Provider: Tom Woodson Admit Provider: Alexander Thomson I. Primary Care Provider: Gaudencio Chowdhury Other Providers: [facility] ; [facility] ; Edmund Soliman ; Tom Woodson Other Interventions: Discharge Summary Assessment (RN) Last Done: 01/09/21 16:08 Coding Level of Care Code D/C DAY MANAGEMENT >30 MINS Diagnoses Anemia D64.9 Anemia type: unspecified type Metabolic encephalopathy G93.41 Cough R05 HTN (hypertension) I10 Hypertension type: essential hypertension VIKY (acute kidney injury) N17.9 Diabetes E11.40 Diabetes mellitus type: type 2 Diabetes mellitus equipment operator intermodal yard insulin use: without equipment operator intermodal yard use Diabetes mellitus complication status: with neurologic complications Diabetes mellitus complication detail: with unspecified neuropathy UTI (urinary tract infection) T83.511A; N39.0 Encounter type: initial encounter Indwelling urinary catheter type: indwelling urethral catheter Urinary tract infection type: catheter-associated UTI 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; L97.519 Diabetic ulcer of left foot E11.621; L97.529 Indwelling Hernandez catheter present Z96.0 Cerebral palsy G80.9 Cerebral palsy type: unspecified type Hyperlipidemia E78.2 Hyperlipidemia type: mixed hyperlipidemia Cellulitis of right leg L03.115 Pressure injury of sacral region, stage 2 L89.152 Spina bifida Q05.9 DVT prophylaxis Z29.9
== END 2021-01-09 17:23 | DRG 377 ==
LOC: ED 22:59 → SUATTDRO 12-23 03:17 → 2S 12-23 03:17 → 2W 12-24 18:37 → 3E 01-08 22:40

== ENCOUNTER 2023-10-14 08:45 | Inpatient (IN) ==
--- NOTE | 2023-10-14 09:00 | Emergency Department Note ---
Impression & Plan SBO (small bowel obstruction) ADMIT ED Provider Note HPI: History obtained from patient. The patient is a 67-year-old gentleman with history of cerebral palsy, paraplegia, cognitive disorder, presents the emergency department with a chief complaint of nausea and vomiting. Patient reportedly has had the symptoms since Friday. Patient states he is also had some diarrhea. Patient complains of some mild generalized abdominal pain. On arrival here to the ED the patient is hemodynamically stable, he does not appear to be in any acute distress but he did have an episode of emesis shortly prior to my evaluation. Patient denies any chest pain, he is saturating well on room air on arrival. ROS: - Per HPI Differential Diagnosis: Small bowel obstruction, acute cholecystitis, viral gastroenteritis, acute appendicitis, diverticulitis, amongst other potential pathologies. *Outpatient medications and allergy history reviewed. PE: General: Alert HEENT: Normocephalic, trachea midline Eyes: Extraocular eye movement is intact, no scleral erythema Pulmonary: Clear to auscultation bilaterally, no wheezing Cardio: Regular rate and rhythm GI: Abdomen is distended, tender to palpation : No suprapubic tenderness, Hernandez catheter in place MSK: No evidence of trauma or malformation of the extremities, no edema Skin: No evidence of rash Neuro: Alert, no focal deficits, baseline paraplegia Psychiatric: Cooperative INDEPENDENT INTERPRETATIONS: quality assurance monitor final: (As interpreted by myself): - An order was placed for continuous cardiac monitoring - Patient was noted to be in sinus rhythm with a rate of 113 EKG: (As interpreted by myself): Rate: 92 Rhythm: Normal sinus rhythm Intervals: Within normal limits ST changes: No ST elevation Time: 0902 Chest x-ray: (As interpreted by myself): Nasogastric tube in place in the stomach Interventions provided in ED: -IV fluid bolus, IV Zofran, IV Reglan, IV Benadryl Medical Decision Making: IV was established and lab work obtained, patient was placed on monitoring tech. Lab work shows a mild leukocytosis at 13.42, hemoglobin is normal, platelet count is normal, CMP does not show any critical findings, lactic acid is noted to be normal. Bilirubin is slightly elevated at 1.4, AST and ALT are normal, troponin is negative. EKG per my interpretation shows sinus rhythm without any acute ischemic changes. Urinalysis shows trace ketones, otherwise nonspecific for infection. Will send for culture. Possibly contaminant. Patient does have an indwelling Hernandez catheter. CT imaging of the abdomen pelvis with IV contrast shows evidence of a high-grade small bowel obstruction. Nasogastric tube was placed. Patient did have several episodes of emesis here in the ED while awaiting results of CT imaging. On my reassessment he is mildly tachycardic but otherwise remains hemodynamically stable. Case was discussed with the on-call general surgery PA, Joi Yang, and they will assess the patient once out of the operating room. Case was also discussed with the admitting hospitalist service for [facility], and the patient was placed for admission in stable condition. Patient's imaging and lab work findings were discussed with the patient's sister who later arrived at the bedside. Consultants/Discussions held with other healthcare providers: -General Surgery, Dr. Deleon / Joi Yang PA-C -Hospitalist, Dr. Cornjeo Disposition discussion held by myself with: -Patient and patient's sister at the bedside Diagnosis: 1. Nausea and vomiting, acute 2. High-grade small bowel obstruction, acute 3. Ketonuria, acute, trace 4. Leukocytosis, acute Disposition: Admission Thor Contreras DO Emergency Medicine Past Med/Surg History Medical History Personal history of nicotine dependence Bladder neck obstruction has suprapubic catheter Cognitive communication deficit Abnormal posture Abrasion, right knee, subsequent encounter Acute kidney failure, unspecified Hypokalemia Muscle weakness (generalized) Enterocolitis due to Clostridium difficile, recurrent onset 10/2021 Elevated white blood cell count, unspecified hx 01/2021 Hyperlipidemia Weakness Benign prostatic hyperplasia with lower urinary tract symptoms Hx: UTI (urinary tract infection) no current abx PVD (peripheral vascular disease) History of COVID-19 07/2022 Anemia Unspecified intellectual disabilities Diabetes mellitus, type 2 Neuromuscular dysfunction of bladder [facility] resident Suprapubic catheter Metabolic encephalopathy Spina bifida Cerebral palsy Heart disease Per [facility] records Patient's sister (HIPAA contact) denies HTN (hypertension) Surgical History Presence of urogenital implants S/P cystoscopy cystolithopaxy w/ replacement suprapubic cath History of colonoscopy History of esophagogastroduodenoscopy (EGD) Presence of cardiac and vascular implant and graft Noted in [facility] records with the associated date 2015, patient was with [facility] PCP at that time- no evidence of cardiac or vascular implant/graft noted at that time- no further details per available [facility] records Patient's sister (Maribeth, HIPAA contact) denies Family History Mother Peripheral vascular disease Other Cancer Diabetes Heart disease Hypertension Denies family history of Ovarian cancer Prostate cancer Myocardial infarction Breast cancer Colorectal cancer Social History Smoking Status: Never smoker Tobacco Type: Cigarettes Preferred Language: Unknown Communication Ability: Unknown Visual Impairment: No Limitations Hearing Ability: Hard of Hearing Coal Grader Required: No Beliefs That Will Affect Care: None marital status: Single Current Living Situation: Jail Current Living Situation Comment: has caregivers from [id number] and 2 hours in the evening current occupational status: disabled Feels Safe at Home: Yes Diet: regular caffeine: Yes during the past year weight has: remained stable Dental Care, Regularly: No Physical Activity Frequency: Does not Exercise Seatbelt Use: never Allergies Allergies Allergy/AdvReac Type Severity Reaction Status Date / Time lisinopril Allergy Unknown Unknown Verified 07/18/23 05:53 sulfamethoxazole AdvReac Mild Nausea Verified 07/18/23 05:53 [From Bactrim] trimethoprim [From Bactrim] AdvReac Mild Nausea Verified 07/18/23 05:53 Home Meds Home Medications Medication Instructions Recorded Confirmed blood-glucose meter (OneTouch #1 ea 11/05/18 02/19/23 Verio Meter) cholecalciferol (vitamin D3) 25 3,000 units PO .@0830 11/05/18 10/14/23 mcg (1,000 unit) tablet tramadol 50 mg tablet 50 mg PO .@0830, 202912/23/20 10/14/23 acetaminophen 325 mg capsule 650 mg PO Q8H PRN PAIN/FEVER 09/09/22 10/14/23 (Tylenol) bisacodyl 10 mg rectal suppository 10 mg OK DAILY PRN Constipation 09/09/22 10/14/23 (Dulcolax (bisacodyl)) magnesium hydroxide 400 mg/5 mL 30 ml PO UD PRN Constipation 09/09/22 10/14/23 oral suspension (Milk of Magnesia) potassium chloride 20 mEq 40 meq PO .@8030,1630 09/09/22 10/14/23 tablet,extended release insulin glargine 100 unit/mL (3 60 unit subcut HS 07/15/23 10/14/23 mL) subcutaneous pen (Basaglar KwikPen U-100 Insulin) linaclotide 72 mcg capsule 72 mcg PO .NDEA CHRISTENSEN,Fri07/15/23 10/14/23 (Linzess) constipation propranolol 120 mg capsule,24 120 mg PO DAILY 07/15/23 10/14/23 hr,extended release (Inderal LA) atorvastatin 20 mg tablet (Lipitor) 20 mg PO .@202910/06/23 10/14/23 semaglutide 1 mg/dose (2 mg/1.5 2 mg subcut .Friday10/06/23 10/14/23 mL) subcutaneous pen injector sodium phosphates 19 gram-7 118 ml OK UD PRN Constipation 10/06/23 10/14/23 gram/118 mL enema (Fleet Enema) furosemide 40 mg tablet 40 mg PO .@0810/14/23 10/14/23 glimepiride 2 mg tablet 2 mg PO .@0830,1630 10/14/23 10/14/23 promethazine 25 mg tablet 25 mg PO Q6H PRN n/v 10/14/23 10/14/23 promethazine 25 mg/mL injection 25 mg IM Q6H PRN n/v 10/14/23 10/14/23 solution sennosides 8.6 mg-docusate sodium 1 tab-cap PO .@82910/14/23 10/14/23 50 mg tablet (Senokot-S) Previous Rx's Medication Instructions Recorded Wheelchair (Manual) #1 ea 04/01/19 diaper,brief,adult,disposable #48 ea 06/30/19 blood sugar diagnostic (OneTouch #100 ea 04/10/20 Ultra Blue Test Strip) insulin aspart U-100 100 unit/mL 1 sliding scale dose subcut 07/01/22 subcutaneous solution (Novolog USEASDIRECTD DM #10 mL U-100 Insulin aspart) losartan 50 mg tablet 50 mg PO DAILY #30 tabs 07/01/22 Results & Data (ED) Vital Signs Vital Signs - 24 hr 10/14/23 08:50 10/14/23 09:06 10/14/23 09:30 Temperature 36.9 C Temperature Source Oral Pulse Rate 111 H 99 H 110 H Pulse Rate [Left Finger] Pulse Rhythm Regular Pulse Rhythm [Left Finger] Pulse Strength [Left Finger] Respiratory Rate 20 20 Respiratory Effort / Characteristics Respiratory Depth Respiratory Pattern Blood Pressure 137/114 H Blood Pressure [Left Arm] Blood Pressure Mean 121 Blood Pressure Mean [Left Arm] Blood Pressure Position Lying Blood Pressure Position [Left Arm] Pulse Oximetry 98 98 Oxygen Delivery Method Room Air Room Air Sepsis Recent Fever Within 48 Hours No Sepsis New/Unexplained Change in Mental Status No Sepsis Action Taken by Nursing No Action Required 10/14/23 10:27 10/14/23 13:14 10/14/23 13:28 Temperature Temperature Source Pulse Rate 105 H Pulse Rate [Left Finger] 104 H 115 H Pulse Rhythm Pulse Rhythm [Left Finger] Regular Regular Pulse Strength [Left Finger] Normal Normal Respiratory Rate 20 20 Respiratory Effort / Characteristics Non-Labored Spontaneous Non-Labored Spontaneous Respiratory Depth Normal Normal Respiratory Pattern Regular Regular Blood Pressure Blood Pressure [Left Arm] 162/105 H 163/106 H Blood Pressure Mean Blood Pressure Mean [Left Arm] 124 125 Blood Pressure Position Blood Pressure Position [Left Arm] Lying Sitting Pulse Oximetry 98 92 Oxygen Delivery Method Room Air Room Air Sepsis Recent Fever Within 48 Hours Sepsis New/Unexplained Change in Mental Status Sepsis Action Taken by Nursing Laboratory Data 10/14/23 09:31 10/14/23 09:31 Lab Results 10/14/23 10/14/23 10/14/23 Range/Units 09:31 09:36 10:25 WBC 13.42 H (4.8-10.8) K/ul RBC 5.24 (4.70-6.10) M/uL Hgb 16.4 (14.0-18.0) g/dl POC Hgb 16.3 (14.0-18.0) g/dl Hct 46.7 (42.0-52.0) % POC Hct 48 (42-52) % MCV 89.1 (80.0-100.0) fL MCH 31.3 (25.0-34.0) pg MCHC 35.1 (32.0-36.0) g/dL RDW Std Deviation 45.6 (36.4-46.3) fL RDW Coeff of Renée 14.1 (11.5-14.5) % Plt Count 292 (130-400) K/uL MPV 9.1 L (9.4-12.4) fL Immature Gran % (Auto) 0.4 % Neut % (Auto) 84.2 % Lymph % (Auto) 8.9 % Chambers % (Auto) 5.3 % Eos % (Auto) 0.8 % Baso % (Auto) 0.4 % Neut # (Auto) 11.29 H (1.40-6.50) K/uL Lymph # (Auto) 1.20 (1.20-3.40) K/uL Chambers # (Auto) 0.71 H (0.11-0.59) K/uL Eos # (Auto) 0.11 (0.00-0.50) K/uL Baso # (Auto) 0.05 (0.00-0.20) K/uL Immature Gran # (Auto) 0.06 (0.01-0.20) K/uL PT 11.3 (9.0-12.0) Seconds INR 1.0 (0.9-1.1) POC Sodium 135 (135-144) mmol/L Sodium 136 (136-145) mmol/L POC Potassium 3.5 (3.3-5.0) mmol/L Potassium 3.5 (3.5-5.1) mmol/L POC Chloride 90 L (101-112) mmol/L Chloride 91 L (98-107) mmol/L Carbon Dioxide 35 H (21-32) mmol/L POC Total CO2 35 H (24-31) mmol/L Anion Gap 10 (3-11) POC Anion Gap 14.0 L (16-25) mmol/L POC BUN 12 (7-18) mg/dl BUN 13 (6-23) mg/dl Creatinine 1.10 (0.6-1.4) mg/dl POC Creatinine 1.1 (0.6-1.3) mg/dl Est Cr Clr Drug Dosing 66.6 ml/min Est GFR ( Amer) 79.0 ml/min Est GFR (Non-Af Amer) 68.1 ml/min BUN/Creatinine Ratio 11.8 (10-20) Glucose 210 H (70-99(Fasting)) mg/dl POC Glucose (other) 208 H (70-99) mg/dl Lactate 1.7 (0.4-2.0) mmol/L Calcium 9.6 (8.6-10.3) mg/dl POC Ioniz Calcium Pamella 1.10 L (1.12-1.32) mmol/l Total Bilirubin 1.4 H (0.2-1.0) mg/dl AST 25 (13-39) U/L ALT 24 (7-52) U/L Alkaline Phosphatase 117 H (34-104) U/L Troponin I High Sens 3.1 (0-20) pg/ml Total Protein 7.6 (6.0-8.3) gm/dl Albumin 4.3 (3.4-5.0) gm/dl Globulin 3.3 (2.5-4.0) gm/dl Albumin/Globulin Ratio 1.3 (0.9-2) Lipase 49 (11-82) U/L Urine Color Dark Yellow Urine Appearance Cloudy A (Clear) Urine pH >= 9.0 H (4.5-7.5) Ur Specific Hackett 1.019 (1.000-1.030) Urine Protein 2+ H (Negative) Urine Glucose (UA) Negative (Negative) Urine Ketones Trace H (Negative) Urine Blood Negative (Negative) Urine Nitrite Negative (Negative) Urine Bilirubin Negative (Negative) Urine Urobilinogen Positive H (Negative) Ur Leukocyte Esterase 3+ H (Negative) Urine WBC (Auto) >50 H (0-5) /hpf Urine RBC (Auto) 3-5 H (0-2) /hpf U Hyaline Cast (Auto) 6-10 H (0-2) /lpf U Epithel Cells (Auto) 0-2 (0-2) /hpf Urine Bacteria (Auto) 4+ H (None Seen) Administered Medications Discontinued Medications Diphenhydramine HCl (Diphenhydramine 50 Mg/Ml Vial) 25 mg IV NOW STA Stop: 10/14/23 11:13 Last Admin: 10/14/23 11:21 Dose: 25 mg Documented By: GIOVANNY Sodium Chloride (Nss) 1,000 mls @ 999 mls/hr IV .Q1H1M ONE Stop: 10/14/23 09:57 Last Infusion: 10/14/23 10:30 Dose: Infused Documented By: Admin: 10/14/23 09:30 Dose: 999 mls/hr Documented By: GIOVANNY Ioversol (Optiray 320 100ml) 94 ml IV ONCE ONE Stop: 10/14/23 11:52 Last Admin: 10/14/23 11:52 Dose: 94 ml Documented By: YONAS Metoclopramide HCl (Metoclopramide Hcl Inj 5 Mg/Ml 2 Ml Vial) 5 mg IV ONE ONE Stop: 10/14/23 11:13 Last Admin: 10/14/23 11:21 Dose: 5 mg Documented By: GIOVANNY Ondansetron HCl (Ondansetron Inj 2 Mg/Ml 2 Ml Vial) 4 mg IV NOW STA Stop: 10/14/23 08:58 Last Admin: 10/14/23 09:31 Dose: 4 mg Documented By: GIOVANNY Ondansetron HCl (Ondansetron Inj 2 Mg/Ml 2 Ml Vial) 4 mg IV NOW STA Stop: 10/14/23 10:14 Last Admin: 10/14/23 10:22 Dose: 4 mg Documented By: GIOVANNY Imaging Data Radiologist's Impression: Abdomen/Pelvis CT 10/14/23 08:[address] WITH IV CONTRAST CT DOSE: 1542.11 mGy.cm HISTORY: Nausea. Vomiting. Small bowel obstruction. TECHNIQUE: Multiaxial CT images of the abdomen and pelvis were performed following the use of intravenous contrast. A dose lowering technique was utilized adhering to the principles of ALARA. COMPARISON STUDY: Abdomen and pelvis CT 12/23/2020. FINDINGS: Stable 9 mm irregular density within the right lung base on image 31. The left lung base is clear. No pneumoperitoneum. No pneumatosis. No acute fractures. Mild circumferential thickening of the distal esophagus. Tiny fat- containing umbilical hernia. Multiple gallstones within the decompressed gallbladder. The liver, spleen, adrenal glands, and pancreas are unremarkable. Bilateral renal hypodense lesions likely represent cysts. No hydronephrosis. The main portal vein is patent. Calcified plaque within the normal caliber abdominal aorta. There is a left retroaortic renal vein. No pelvic lymphadenopathy or pelvic free fluid. The bladder is decompressed by suprapubic catheter which appears in good position. Focal calcification noted at the bladder base. The stomach and proximal to mid small bowel are severely distended and filled with gas and fluid. There is a transitional point within the distal small bowel at the mid to lower abdomen on image 267. Therefore, these findings are consistent with a high-grade small bowel obstruction. This is likely due to an adhesion. There is also mild to moderate gaseous distention of the colon which is partially fluid-filled. IMPRESSION: 1. High-grade small bowel obstruction with the transition point located within the mid lower abdomen likely within the distal ileum. 2. Esophageal wall thickening suggestive of an esophagitis. 3. Distended segments of gas and fluid-filled large bowel. 4. Cholelithiasis. 5. Additional findings as described above. ACT 112: Negative or not required by law. Electronically signed by: Rd Ty M.D. 10/14/2023 1:09 PM Chest X-Ray 10/14/23 13:25 XR chest 1V portable HISTORY: NG tube check COMPARISON: Abdomen and pelvis CT 10/14/2023. FINDINGS: Nasogastric tube terminates in the stomach. There is severe gaseous distention of the stomach and visualized bowel loops consistent with the patient's known small bowel obstruction. The heart is mildly enlarged. Mild interstitial thickening persists. IMPRESSION: 1. The nasogastric tube terminates in the stomach. 2. Severe gaseous distention of the stomach and visualized bowel loops consistent the patient's known small bowel obstruction. ACT 112: Negative or not required by law. Electronically signed by: Rd Ty M.D. 10/14/2023 1:59 PM Discharge Plan Visit Data Chief Complaint: GI Assessment Stated Complaint: AB PAIN ED Provider: Thor Contreras Discharge Problem: SBO (small bowel obstruction) Forms Stand Alone Forms: [employer] [facility] [employer] Customer Support Prescriptions Prescriptions: No Action (DME) Wheelchair (Manual) Device See Dose Instructions .ROUTE .MEDSUPPLY Qty: 1 0RF Dose Instruction: As directed Rx Instructions: Wheelchair Repair (DME) diaper,brief,adult,disposable Misc See Dose Instructions .ROUTE .MEDSUPPLY Qty: 48 2RF Rx Instructions: As directed (DME) OneTouch Ultra Blue Test Strip Strip See Dose Instructions .ROUTE .MEDSUPPLY Qty: 100 5RF Dose Instruction: As directed Rx Instructions: Test once a day (DME) blood-glucose meter [OneTouch Verio Meter] misc See Dose Instructions .ROUTE .MEDSUPPLY Qty: 1 Rx Instructions: USE TO TEST 3-4 TIMES DAILY PRN cholecalciferol (vitamin D3) 1,000 unit tablet 3,000 units PO .@08 losartan 50 mg tablet 50 mg PO DAILY Qty: 30 0RF insulin aspart U-100 [Novolog U-100 Insulin aspart] 100 unit/mL solution 1 sliding scale dose subcut USEASDIRECTD Qty: 10 0RF magnesium hydroxide [Milk of Magnesia] 400 mg/5 mL Suspension 30 ml PO UD PRN (Reason: Constipation) Rx Instructions: after no BM for 3 days bisacodyl [Dulcolax (bisacodyl)] 10 mg Suppository 10 mg OK DAILY PRN (Reason: Constipation) acetaminophen [Tylenol] 325 mg Capsule 650 mg PO Q8H PRN (Reason: PAIN/FEVER) potassium chloride 20 mEq Tablet Extended Release 40 meq PO .@8030,1630 propranolol [Inderal LA] 120 mg Capsule,Extended Release 24 Hr 120 mg PO DAILY insulin glargine [Basaglar KwikPen U-100 Insulin] 100 unit/mL (3 mL) Insulin Pen 60 unit SUBCUT HS Linzess 72 mcg capsule 72 mcg PO .,,FRI Patient Comments: , , Fri Rx Instructions: one time daily , , friday tramadol 50 mg tablet 50 mg PO .@829, 2029 sennosides-docusate sodium [Senokot-S] 8.6-50 mg Tablet 1 tab-cap PO .@829 promethazine 25 mg/mL solution 25 mg IM Q6H PRN (Reason: n/v) Rx Instructions: use if unable to take tablet po promethazine 25 mg tablet 25 mg PO Q6H PRN (Reason: n/v) furosemide 40 mg tablet 40 mg PO .@829 glimepiride 2 mg tablet 2 mg PO .@829,1629 Fleet Enema 19-7 gram/118 mL Enema 118 ml OK UD PRN (Reason: Constipation) Rx Instructions: if no BM after dulcolax semaglutide 1 mg/dose (2 mg/1.5 mL) Pen Injector 2 mg SUBCUT .FRIDAY Patient Comments: wednesdays atorvastatin [Lipitor] 20 mg tablet 20 mg PO .@2029 Referrals Referrals: [facility] [Primary Care Provider] -
[2023-10-14] MEDS: SODIUM CHLORIDE 0.9% 1,000 ML IV ONE (09:30)
[2023-10-14] MEDS: ONDANSETRON INJ 2 MG/ML 2 ML VIAL IV STA ×2 (09:31→10:22)
[2023-10-14 09:49] LABS: iSTAT Creatinine 1.1 mg/dl (0.6-1.3); iSTAT Hemoglobin 16.3 g/dl (14.0-18.0); iSTAT Ionized Calcium 1.1 mmol/l (1.12-1.32); iSTAT Potassium 3.5 mmol/L (3.3-5.0)
[2023-10-14 09:57] LABS: Basophils # (auto) 0.05 K/uL (0.00-0.20); Basophils % (auto) 0.4 %; Eosinophils # (auto) 0.11 K/uL (0.00-0.50); Eosinophils % (auto) 0.8 %; Hematocrit (blood only) 46.7 % (42.0-52.0); Hemoglobin 16.4 g/dl (14.0-18.0); Immature Granulocytes # (auto) 0.06 K/uL (0.01-0.20); Immature Granulocytes % (auto) 0.4 %; Lymphocytes % (auto) 8.9 %; Mean Corpuscular Hemoglobin 31.3 pg (25.0-34.0); Mean Corpuscular Hgb Conc 35.1 g/dL (32.0-36.0); Mean Corpuscular Volume 89.1 fL (80.0-100.0); Mean Platelet Volume 9.1 fL (9.4-12.4); Monocytes # (auto) 0.71 K/uL (0.11-0.59); Monocytes % (auto) 5.3 %; Neutrophils # (auto) 11.29 K/uL (1.40-6.50); Neutrophils % (auto) 84.2 %; Platelet Count 292 K/uL (130-400); RDW Coefficient of Variation 14.1 % (11.5-14.5); RDW Standard Deviation 45.6 fL (36.4-46.3); Red Blood Count 5.24 M/uL (4.70-6.10); White Blood Count 13.42 K/ul (4.8-10.8)
[2023-10-14 10:01] LABS: Prothrombin Time 11.3 Seconds (9.0-12.0)
[2023-10-14 10:12] LABS: Albumin Globulin Ratio 1.3 (0.9-2); Albumin Level 4.3 gm/dl (3.4-5.0); BUN Creatinine Ratio 11.8 (10-20); Bilirubin,Total 1.4 mg/dl (0.2-1.0); Calcium 9.6 mg/dl (8.6-10.3); Creatinine Clr Calc Pharmacy 66.6 ml/min; Est GFR (Non-African American) 68.1 ml/min; Globulin 3.3 gm/dl (2.5-4.0); Potassium 3.5 mmol/L (3.5-5.1); Total Protein 7.6 gm/dl (6.0-8.3)
[2023-10-14 10:18] LABS: Troponin I High Sensitivity 3.1 pg/ml (0-20)
[2023-10-14 11:13] LABS: Appearance Urine Cloudy (Clear); Bacteria Urine Automated 4+ (None Seen); Bilirubin Urine Negative (Negative); Blood Urine Negative (Negative); Color Urine Dark Yellow; Epithelial Cell Urine Auto 0-2 /hpf (0-2); Glucose Urine UA Negative (Negative); Ketones Urine Trace (Negative); Leukocyte Esterase Urine 3+ (Negative); Nitrite Urine Negative (Negative); Protein Urine 2+ (Negative); Specific Gravity Urine 1.019 (1.000-1.030); Urobilinogen Urine Positive (Negative); WBC Urine Automated >50 /hpf (0-5); pH Urine >= 9.0 (4.5-7.5)
[2023-10-14] MEDS: diphenhydrAMINE 50 MG/ML VIAL IV STA (11:21)
[2023-10-14] MEDS: METOCLOPRAMIDE HCL INJ 5 MG/ML 2 ML VIAL IV ONE (11:21)
[2023-10-14] MEDS: OPTIRAY 320 100ml IV ONE (11:52)
--- NOTE | 2023-10-14 13:10 | CT Scan Report ---
ABDOMEN AND PELVIS CT WITH IV CONTRAST CT DOSE: 1542.11 mGy.cm HISTORY: Nausea. Vomiting. Small bowel obstruction. TECHNIQUE: Multiaxial CT images of the abdomen and pelvis were performed following the use of intrave nous contrast. A dose lowering technique was utilized adhering to the principles of ALARA. COMPARISON STUDY: Abdomen and pelvis CT 12/23/2020. FINDINGS: Stable 9 mm irregular density within the right lung base on image 31. The left lung base is clear. No pneumoperitoneum. No pneumatosis. No acute fractures. Mild circumferential thickening of t he distal esophagus. Tiny fat-containing umbilical hernia. Multiple gallstones within the decompresse d gallbladder. The liver, spleen, adrenal glands, and pancreas are unremarkable. Bilateral renal hypo dense lesions likely represent cysts. No hydronephrosis. The main portal vein is patent. Calcified pl aque within the normal caliber abdominal aorta. There is a left retroaortic renal vein. No pelvic lym phadenopathy or pelvic free fluid. The bladder is decompressed by suprapubic catheter which appears i n good position. Focal calcification noted at the bladder base. The stomach and proximal to mid small bowel are severely distended and filled with gas and fluid. There is a transitional point within the distal small bowel at the mid to lower abdomen on image 267. Therefore, these findings are consisten t with a high-grade small bowel obstruction. This is likely due to an adhesion. There is also mild to moderate gaseous distention of the colon which is partially fluid-filled. IMPRESSION: 1. High-grade small bowel obstruction with the transition point located within the mid lower abdomen likely within the distal ileum. 2. Esophageal wall thickening suggestive of an esophagitis. 3. Distended segments of gas and fluid-filled large bowel. 4. Cholelithiasis. 5. Additional findings as described above. ACT 112: Negative or not required by law. Electronically signed by: Rd Ty M.D. 10/14/2023 1:09 PM
--- NOTE | 2023-10-14 13:25 | History & Physical Report ---
Date of Service October 14, 2023 Assessment & Plan (1) Small bowel obstruction: Plan: Nausea and vomiting x [address] revealed high-grade SBO General surgery consulted NG tube placed in the ED Strict n.p.o. (hold all p.o. medications) Leukocytosis at 13.42 with neutrophil predominance Lactate WNL Procalcitonin ordered, pending Blood cultures ordered, pending Zosyn 4.5 g IV q8h Famotidine 20 mg IV QAM IVF with LR at 125 mL/hr x 3 while NPO Zofran as needed for nausea/vomiting Acetaminophen IV as needed for pain/fever A.m. CBC, BMP, mag (2) Diabetes mellitus, type 2: Plan: Last A1c at 8.2% on 09/29/2023 Glucose 208 on admission Hold glimepiride, semaglutide, Patient is normally on Lantus 60u HS Recommend decreasing Lantus while inpatient and n.p.o. SSI; with target BSG range 110-140mg/dL, CF 15, carb ratio 5 BSG q4h while NPO Adjust regimen as needed Pharmacy glycemic consult (3) UTI (urinary tract infection) due to urinary indwelling catheter: Plan: Chronic indwelling suprapubic catheter UA positive on arrival Zosyn (as above) Follow Urine cx (4) Hypertension: Plan: Hold atenolol Metoprolol 5 mg IV q6h as needed for beta-charlotte withdrawal (HR >140 and SBP>120) (5) Paraplegia: (6) Cerebral palsy: (7) Neuromuscular dysfunction of bladder: Plan Disposition: Admit to PCU telemetry DNR/DNI Strict n.p.o. VTE PPx: SCDs, pending surgical eval History of Present Illness Chief Complaint: Nausea, vomiting, abdominal distention Primary Care Provider: [facility] Michael is a 67-year-old male with PMH of cerebral palsy, paraplegia, HTN, HLD, metabolic encephalopathy, spina bifida, catheter associated UTI, sepsis, and sacral ulcers. He presented from [facility] on 10/13 for nausea and vomiting, which has been ongoing over the past 3 days. Patient's sister/POA (Maribeth) is at the bedside and provides most the history, as patient is lethargic and m inimally responsive to questioning (which started shortly after he received Benadryl in the ED). Patient's sister saw him yesterday, and noticed significant abdominal distention. No change in cognitive baseline, per sister. No history of abdominal surgeries or prior small bowel obstructions, but she notes that his brother had the same thing in the past. Patient has been vomiting brown-colored emesis, and it is unclear if he has been having any hematemesis or coffee-ground emesis. Patient denies smoking, alcohol use, and tobacco use. Patient's sister/POA reconfirms that he is DNR/DNI status. Patient is hypertensive at 162/105 and tachycardic at 105 bpm at time of admission. ED course: Zofran 4 mg IV x 2 Reglan 5 mg IV Benadryl 25 mg IV NSS 1000 mL IV Unable to obtain full ROS in patient's current state, however he denies any fever, chest pain, or difficulty breathing at this time. Allergies Allergy/AdvReac Type Severity Reaction Status Date / Time lisinopril Allergy Unknown Unknown Verified 07/18/23 05:53 sulfamethoxazole AdvReac Mild Nausea Verified 07/18/23 05:53 [From Bactrim] trimethoprim [From Bactrim] AdvReac Mild Nausea Verified 07/18/23 05:53 Home Medications Medication Instructions Recorded Confirmed Type blood-glucose meter (OneTouch #1 ea 11/05/18 02/19/23 History Verio Meter) cholecalciferol (vitamin D3) 25 3,000 units PO .@0830 11/05/18 10/14/23 History mcg (1,000 unit) tablet Wheelchair (Manual) #1 ea 04/01/19 02/19/23 Rx diaper,brief,adult,disposable #48 ea 06/30/19 02/19/23 Rx blood sugar diagnostic (OneTouch #100 ea 04/10/20 02/19/23 Rx Ultra Blue Test Strip) tramadol 50 mg tablet 50 mg PO .@0830, 2030 12/23/20 10/14/23 History insulin aspart U-100 100 unit/mL 1 sliding scale dose subcut 07/01/22 10/14/23 Rx subcutaneous solution (Novolog USEASDIRECTD DM #10 mL U-100 Insulin aspart) losartan 50 mg tablet 50 mg PO DAILY #30 tabs 07/01/22 10/14/23 Rx acetaminophen 325 mg capsule 650 mg PO Q8H PRN PAIN/FEVER 09/09/22 10/14/23 History (Tylenol) bisacodyl 10 mg rectal suppository 10 mg MT DAILY PRN Constipation 09/09/22 10/14/23 History (Dulcolax (bisacodyl)) magnesium hydroxide 400 mg/5 mL 30 ml PO UD PRN Constipation 09/09/22 10/14/23 History oral suspension (Milk of Magnesia) potassium chloride 20 mEq 40 meq PO .@8030,1630 09/09/22 10/14/23 History tablet,extended release insulin glargine 100 unit/mL (3 60 unit subcut HS 07/15/23 10/14/23 History mL) subcutaneous pen (Basaglar KwikPen U-100 Insulin) linaclotide 72 mcg capsule 72 mcg PO .TUES,TH,SUN 07/15/23 10/14/23 History (Linzess) constipation propranolol 120 mg capsule,24 120 mg PO DAILY 07/15/23 10/14/23 History hr,extended release (Inderal LA) atorvastatin 20 mg tablet (Lipitor) 20 mg PO .@2030 10/06/23 10/14/23 History semaglutide 1 mg/dose (2 mg/1.5 2 mg subcut .Friday10/06/23 10/14/23 History mL) subcutaneous pen injector sodium phosphates 19 gram-7 118 ml MT UD PRN Constipation 10/06/23 10/14/23 History gram/118 mL enema (Fleet Enema) furosemide 40 mg tablet 40 mg PO .@0830 10/14/23 10/14/23 History glimepiride 2 mg tablet 2 mg PO .@0830,1630 10/14/23 10/14/23 History promethazine 25 mg tablet 25 mg PO Q6H PRN n/v 10/14/23 10/14/23 History promethazine 25 mg/mL injection 25 mg IM Q6H PRN n/v 10/14/23 10/14/23 History solution sennosides 8.6 mg-docusate sodium 1 tab-cap PO .@0830 10/14/23 10/14/23 History 50 mg tablet (Senokot-S) Past Med/Surg History Medical History Personal history of nicotine dependence Bladder neck obstruction has suprapubic catheter Cognitive communication deficit Abnormal posture Abrasion, right knee, subsequent encounter Acute kidney failure, unspecified Hypokalemia Muscle weakness (generalized) Enterocolitis due to Clostridium difficile, recurrent onset 10/2021 Elevated white blood cell count, unspecified hx 01/2021 Hyperlipidemia Weakness Benign prostatic hyperplasia with lower urinary tract symptoms Hx: UTI (urinary tract infection) no current abx PVD (peripheral vascular disease) History of COVID-19 07/2022 Anemia Unspecified intellectual disabilities Diabetes mellitus, type 2 Neuromuscular dysfunction of bladder shelter resident Suprapubic catheter Metabolic encephalopathy Spina bifida Cerebral palsy Heart disease Per correction records Patient's sister (HIPAA contact) denies HTN (hypertension) Surgical History Presence of urogenital implants S/P cystoscopy cystolithopaxy w/ replacement suprapubic cath History of colonoscopy History of esophagogastroduodenoscopy (EGD) Presence of cardiac and vascular implant and graft Noted in correction records with the associated date 2015, [facility]- no evidence of cardiac or vascular implant/graft noted at that time- no further details per available correction records Patient's sister (Maribeth, HIPAA contact) denies Family History Mother Peripheral vascular disease Other Cancer Diabetes Heart disease Hypertension Denies family history of Ovarian cancer Prostate cancer Myocardial infarction Breast cancer Colorectal cancer Social History Smoking Status: Unknown if ever smoked Tobacco Type: Cigarettes Hx Alcohol Use: No Hx Substance Use: No Preferred Language: Estonian Communication Ability: Effective Visual Impairment: No Limitations Hearing Ability: Hard of Hearing Center Rep Required: No Beliefs That Will Affect Care: None marital status: Single Current Living Situation: Personal Care Facility Current Living Situation Comment: has caregivers from [phone] and 2 hours in the evening current occupational status: disabled Feels Safe at Home: Yes Diet: regular caffeine: Yes during the past year weight has: remained stable Dental Care, Regularly: No Physical Activity Frequency: Does not Exercise Seatbelt Use: never Review of Systems Review of Systems: See HPI above Physical Exam Physical Exam: General: no acute distress; lethargic; NG tube in place non-toxic appearing; well-nourished; cooperative; SpO2 92% on RA HEENT: normocephalic, atraumatic; NG tube in place; no scleral icterus; pinpoint pupils; dry mucus membrane; brown vomit ayush under lip; vision and hearing grossly intact Neck: supple; no lymphadenopathy; trachea midline Skin: warm, dry without signs of tenting; no cyanosis; no rashes, bruising, lesions, or erythema noted CV: chest wall NTP; RRR; S1/S2 normal; no murmurs/rubs/gallops; pulses intact and symmetric at radial, DP, and PT Lungs: no acute respiratory distress; symmetrical chest wall expansion; clear breath sounds across all lung lake w/o adventitious sounds; no wheezing ABD: Firm; significant abdominal distention; tympany to percussion; BS present : Suprapubic catheter in place without signs of drainage or erythema MSK: no tics or fasciculations; no edema noted in the LEs b/l, nonerythematous Neuro: Lethargic and does not respond to questioning; does respond to some commands such as wiggle toes; sensation intact in the LEs b/l Results & Data Results & Data Vital Signs (Past 12 Hours) Vital Signs Temp Pulse Pulse Resp BP BP Pulse Ox 10/14/23 13:14 105 H 10/14/23 10:27 104 H 20 162/105 H 98 10/14/23 09:30 110 H 20 98 10/14/23 09:06 99 H 10/14/23 08:50 36.9 C 111 H 20 137/114 H 98 O2 Del Method 10/14/23 13:14 10/14/23 10:27 Room Air 10/14/23 09:30 Room Air 10/14/23 09:06 10/14/23 08:50 Room Air Laboratory Results Abnormal lab results 10/14/23 10/14/23 10/14/23 Range/Units 09:31 09:36 10:25 WBC 13.42 H (4.8-10.8) K/ul MPV 9.1 L (9.4-12.4) fL Neut # (Auto) 11.29 H (1.40-6.50) K/uL Russell # (Auto) 0.71 H (0.11-0.59) K/uL POC Chloride 90 L (101-112) mmol/L Chloride 91 L (98-107) mmol/L Carbon Dioxide 35 H (21-32) mmol/L POC Total CO2 35 H (24-31) mmol/L POC Anion Gap 14.0 L (16-25) mmol/L Glucose 210 H (70-99(Fasting)) mg/dl POC Glucose (other) 208 H (70-99) mg/dl POC Ioniz Calcium Pamella 1.10 L (1.12-1.32) mmol/l Total Bilirubin 1.4 H (0.2-1.0) mg/dl Alkaline Phosphatase 117 H (34-104) U/L Urine Appearance Cloudy A (Clear) Urine pH >= 9.0 H (4.5-7.5) Urine Protein 2+ H (Negative) Urine Ketones Trace H (Negative) Urine Urobilinogen Positive H (Negative) Ur Leukocyte Esterase 3+ H (Negative) Urine WBC (Auto) >50 H (0-5) /hpf Urine RBC (Auto) 3-5 H (0-2) /hpf U Hyaline Cast (Auto) 6-10 H (0-2) /lpf Urine Bacteria (Auto) 4+ H (None Seen) Diagnostic Findings Abdomen/Pelvis CT 10/14/23 08:[address] WITH IV CONTRAST CT DOSE: 1542.11 mGy.cm HISTORY: Nausea. Vomiting. Small bowel obstruction. TECHNIQUE: Multiaxial CT images of the abdomen and pelvis were performed following the use of intravenous contrast. A dose lowering technique was utilized adhering to the principles of ALARA. COMPARISON STUDY: Abdomen and pelvis CT 12/23/2020. FINDINGS: Stable 9 mm irregular density within the right lung base on image 31. The left lung base is clear. No pneumoperitoneum. No pneumatosis. No acute fractures. Mild circumferential thickening of the distal esophagus. Tiny fat- containing umbilical hernia. Multiple gallstones within the decompressed gallbladder. The liver, spleen, adrenal glands, and pancreas are unremarkable. Bilateral renal hypodense lesions likely represent cysts. No hydronephrosis. The main portal vein is patent. Calcified plaque within the normal caliber abdominal aorta. There is a left retroaortic renal vein. No pelvic lymphadenopathy or pelvic free fluid. The bladder is decompressed by suprapubic catheter which appears in good position. Focal calcification noted at the bladder base. The stomach and proximal to mid small bowel are severely distended and filled with gas and fluid. There is a transitional point within the distal small bowel at the mid to lower abdomen on image 267. Therefore, these findings are consistent with a high-grade small bowel obstruction. This is likely due to an adhesion. There is also mild to moderate gaseous distention of the colon which is partially fluid-filled. IMPRESSION: 1. High-grade small bowel obstruction with the transition point located within the mid lower abdomen likely within the distal ileum. 2. Esophageal wall thickening suggestive of an esophagitis. 3. Distended segments of gas and fluid-filled large bowel. 4. Cholelithiasis. 5. Additional findings as described above. ACT 112: Negative or not required by law. Electronically signed by: Rd Ty M.D. 10/14/2023 1:09 PM ECG Additional Comments: ECG revealed normal sinus rhythm at 92 bpm; QTc 445 Code Status & VTE Plan Code Status DNR/DNI VTE Prophylaxis Plan VTE Prophylaxis will be ordered: Yes Supervising Physician Co-Signing Physician Notes I personally saw and examined the patient. I independently reviewed the labs, EKG, imaging, problem list, medication list, past medical history and family history. I verified all ahmadi points and agree with Rd Montano PA-C with the following exceptions and/or additions: 67 year old male presents to the ER from [facility] with abdominal pain and emesis. Unable to get any history from the patient following diphenhydramine. O/E Alert to voice, not orientated x3, HS increased rate, regular rhythm, Chest CTAB, Abdo distended and firm, generalized tenderness A/P Small bowel obstruction - NPO, IV fluids, NG tube to low intermittent suction, consult general surgery, IV Zosyn given high grade obstruction to bacterial translocation prophylaxis PG Care Time/CCT Total # of Minutes Spent Total Time Spent with Patient: Total time spent is greater than 50% in coordination of care (as documented) at patient's floor/unit and/or counseling patient: Coding [place] [address] INT INP/OBS CARE 3/75MIN Patient Type Established Medical Decision Making High Complexity Diagnoses Small bowel obstruction K56.609 Diabetes mellitus, type 2 E11.9 UTI (urinary tract infection) due to urinary indwelling catheter T83.511A; N39.0 Essential hypertension I10 Hypertension type: essential hypertension Paraplegia G82.20 Cerebral palsy G80.9 Neuromuscular dysfunction of bladder N31.9 (4) Hypertension Hypertension type: essential hypertension Qualified Code(s): I10 - Essential (primary) hypertension
[2023-10-14] MEDS ORDERED: PIPERACILLIN/TAZOBACTAM 4.5 GM in DEXTROSE 5% MINI-B 100 ML IV STA (14:00)
--- NOTE | 2023-10-14 14:01 | XRay Report ---
XR chest 1V portable HISTORY: NG tube check COMPARISON: Abdomen and pelvis CT 10/14/2023. FINDINGS: Nasogastric tube terminates in the stomach. There is severe gaseous distention of the stoma ch and visualized bowel loops consistent with the patient's known small bowel obstruction. The heart is mildly enlarged. Mild interstitial thickening persists. IMPRESSION: 1. The nasogastric tube terminates in the stomach. 2. Severe gaseous distention of the stomach and visualized bowel loops consistent the patient's known small bowel obstruction. ACT 112: Negative or not required by law. Electronically signed by: Rd Ty M.D. 10/14/2023 1:59 PM
[2023-10-14 14:21] LABS: Influenza A virus by PCR Negative (Neg); Influenza B virus by PCR Negative (Neg); RSV by PCR Negative (Neg); SARS CoV2 RNA(COVID-19) Ceph NEGATIVE (Negative)
[2023-10-14] MEDS: PANTOprazole 40 MG in SYRINGE 0 ML IV STA (14:39)
[2023-10-14] MEDS: PIPERACILLIN/TAZOBACTAM 4.5 GM/100 ML BAG IV STA (14:39)
[2023-10-14] MEDS: FAMOTIDINE 20MG IV PUSH 20 MG/5 ML SYR IV STA (14:39)
[2023-10-14] MEDS: LACTATED RINGER'S 1,000 ML IV SCH (14:40)
[2023-10-14 14:51] LABS: Base Excess VBG 13.4 mEq/L; HCO3 VBG 38 mmol/L; Oxygen Saturation VBG 90.4 %; PCO2 VBG 44 mmHg (38-50); PO2 VBG 59 mmHg; pH VBG 7.54 (7.36-7.41)
[2023-10-14 14:58] LABS: C Reactive Protein 1.13 mg/dl (0-0.5)
--- NOTE | 2023-10-14 15:21 | Surgery Consultation ---
Date of Consultation October 14, 2023 Assessment & Plan (1) Small bowel obstruction: This is a 67yM with a PMH of cerebral palsy, HTN, spina bifida, HLD, DM, HTN, suprapubic catheter, paraplegia wheel chair bound, resides at [facility] who presents to the [facility] ED on 10/14/23 with episodes of nausea/vomiting. Majority of history obtained from his sister (gayathri ADORNO), Maribeth. Today in the ER A CT a/p was performed that revealed concerns for a high grade SBO with transition point near the distal ileum, with distended loops of large bowel. She states he uses a motorized power chair and requires what sounds like a marcus lift. He has no prior abdominal surgical history. He has had CT scans in the past showing similar picture of dilated stomach, small bowel and colon and has been treated for severe constipation issues previously and has been evaluated by GI. Today CT mentions concern for possible SBO. On examination patient is sleeping. Abdomen is moderately distended. Does not appear to be in any considerable pain upon palpation. An NGT is in place draining dark brown fluid. Vitals show he is tachycardic to 100's, HTN with last BP 163/106, afebrile. Labs show WBC 13, hbg 16, Cr 1.1. Patient has likely chronic bowel dilation from neurogenic causes, however an overlying SBO is possible. Agree with a trial of conservative measures, keep NPO with IVF and NGT for decompression. No indication for surgical intervention at this time. KUB ordered for tomorrow. May benefit from a bowel regimen from below in future pending improvement. Supervising Physician Co-Signing Physician Notes pnt S&E, labs and imaging reviewed, agree w/ above. 67 y/o male w/ likely neurogenic bowel. Abd distended, ng tube dark brown fluid. CT personally reviewed and interpreted and note distended stomach, small and large bowel w/ some areas of decompression. Feel this is more associated with chronic neurogenic bowel issue, less likely sbo. agree w/ ng tube, non operative management for now. History of Present Illness History of Present Illness This is a 67yM with a PMH of cerebral palsy, HTN, spina bifida, HLD, DM, HTN, suprapubic catheter, paraplegia wheel chair bound, resides at [facility] who presents to the [facility] ED on 10/14/23 with episodes of nausea/vomiting. Patient is sleeping, recently received benadryl, and majority of history obtained from his sister (a POA), Maribeth. She states he can normally converse at baseline, seems to understand what is communicated to him, but may repeat himself in responses. She was aware of him having nausea/vomiting starting Friday. She went to visit him yesterday and states that the patient seemed otherwise well, and had no bouts of emesis. Then today she was called by [facility] and was told they were bringing him into the ER for evaluation given return of nausea/vomiting. A CT a/p was performed that revealed concerns for a high grade SBO with transition point near the distal ileum, with distended loops of large bowel. Unable to obtain when patient's last meal was, last BM, or if he has any other symptoms of pain, etc. She states he uses a motorized power chair and requires what sounds like a marcus lift. He has no prior abdominal surgical history. Living at [facility] over the last 3 years. Has been admitted in the past. Has undergone what sounds like incomplete colonoscopy's for poor bowel prep. he has had CT scans in the past showing similar picture of dilated stomach, small bowel and colon and has been treated for severe constipation issues previously. Allergies Allergy/AdvReac Type Severity Reaction Status Date / Time lisinopril Allergy Unknown Unknown Verified 07/18/23 05:53 sulfamethoxazole AdvReac Mild Nausea Verified 07/18/23 05:53 [From Bactrim] trimethoprim [From Bactrim] AdvReac Mild Nausea Verified 07/18/23 05:53 Home Medications Medication Instructions Recorded Confirmed Type blood-glucose meter (OneTouch #1 ea 11/05/18 02/19/23 History Verio Meter) cholecalciferol (vitamin D3) 25 3,000 units PO .@0830 11/05/18 10/14/23 History mcg (1,000 unit) tablet Wheelchair (Manual) #1 ea 04/01/19 02/19/23 Rx diaper,brief,adult,disposable #48 ea 06/30/19 02/19/23 Rx blood sugar diagnostic (OneTouch #100 ea 04/10/20 02/19/23 Rx Ultra Blue Test Strip) tramadol 50 mg tablet 50 mg PO .@0830, 2030 07/17/21 05/07/24 History insulin aspart U-100 100 unit/mL 1 sliding scale dose subcut 07/01/22 10/14/23 Rx subcutaneous solution (Novolog USEASDIRECTD DM #10 mL U-100 Insulin aspart) losartan 50 mg tablet 50 mg PO DAILY #30 tabs 07/01/22 10/14/23 Rx acetaminophen 325 mg capsule 650 mg PO Q8H PRN PAIN/FEVER 09/09/22 10/14/23 History (Tylenol) bisacodyl 10 mg rectal suppository 10 mg OK DAILY PRN Constipation 09/09/22 10/14/23 History (Dulcolax (bisacodyl)) magnesium hydroxide 400 mg/5 mL 30 ml PO UD PRN Constipation 09/09/22 10/14/23 History oral suspension (Milk of Magnesia) potassium chloride 20 mEq 40 meq PO .@8030,162909/09/22 10/14/23 History tablet,extended release insulin glargine 100 unit/mL (3 60 unit subcut HS 07/15/23 10/14/23 History mL) subcutaneous pen (Basaglar KwikPen U-100 Insulin) linaclotide 72 mcg capsule 72 mcg PO .TUES,THURS,SUN 07/15/23 10/14/23 History (Linzess) constipation propranolol 120 mg capsule,24 120 mg PO DAILY 07/15/23 10/14/23 History hr,extended release (Inderal LA) atorvastatin 20 mg tablet (Lipitor) 20 mg PO .@202910/06/23 10/14/23 History semaglutide 1 mg/dose (2 mg/1.5 2 mg subcut .Friday10/06/23 10/14/23 History mL) subcutaneous pen injector sodium phosphates 19 gram-7 118 ml OK UD PRN Constipation 10/06/23 10/14/23 History gram/118 mL enema (Fleet Enema) furosemide 40 mg tablet 40 mg PO .@82910/14/23 10/14/23 History glimepiride 2 mg tablet 2 mg PO .@0830,16310/14/23 10/14/23 History promethazine 25 mg tablet 25 mg PO Q6H PRN n/v 10/14/23 10/14/23 History promethazine 25 mg/mL injection 25 mg IM Q6H PRN n/v 10/14/23 10/14/23 History solution sennosides 8.6 mg-docusate sodium 1 tab-cap PO .@0830 10/14/23 10/14/23 History 50 mg tablet (Senokot-S) Patient History Medical History Personal history of nicotine dependence Bladder neck obstruction has suprapubic catheter Cognitive communication deficit Abnormal posture Abrasion, right knee, subsequent encounter Acute kidney failure, unspecified Hypokalemia Muscle weakness (generalized) Enterocolitis due to Clostridium difficile, recurrent onset 10/2021 Elevated white blood cell count, unspecified hx 01/2021 Hyperlipidemia Weakness Benign prostatic hyperplasia with lower urinary tract symptoms Hx: UTI (urinary tract infection) no current abx PVD (peripheral vascular disease) History of COVID-19 07/2022 Anemia Unspecified intellectual disabilities Diabetes mellitus, type 2 Neuromuscular dysfunction of bladder [facility] Suprapubic catheter Metabolic encephalopathy Spina bifida Cerebral palsy Heart disease Per [facility] records Patient's sister (HIPAA contact) denies HTN (hypertension) Surgical History Presence of urogenital implants S/P cystoscopy cystolithopaxy w/ replacement suprapubic cath History of colonoscopy History of esophagogastroduodenoscopy (EGD) Presence of cardiac and vascular implant and graft Noted in [facility] records with the associated date 2015, [facility]- no evidence of cardiac or vascular implant/graft noted at that time- no further details per available [facility] records Patient's sister (Maribeth, HIPAA contact) denies Family History Mother Peripheral vascular disease Other Cancer Diabetes Heart disease Hypertension Denies family history of Ovarian cancer Prostate cancer Myocardial infarction Breast cancer Colorectal cancer Social History Smoking Status: Unknown if ever smoked Tobacco Type: Cigarettes Hx Alcohol Use: No Hx Substance Use: No Preferred Language: Upper Sorbian Communication Ability: Effective Visual Impairment: No Limitations Hearing Ability: Hard of Hearing Business Information Consultant Required: No Beliefs That Will Affect Care: None marital status: Single Current Living Situation: Personal Care Facility Current Living Situation Comment: has caregivers from [phone] and 2 hours in the evening current occupational status: disabled Other Information That Helps Us Care for You: No Feels Safe at Home: Yes Safety Concerns: Feels Safe At This Time Diet: regular caffeine: Yes during the past year weight has: remained stable Dental Care, Regularly: No Physical Activity Frequency: Does not Exercise Seatbelt Use: never Review of Systems Review of Systems: Other majority of HPI obtained from sister. Pt is drowsy/sleepy Physical Exam Physical Exam: drowsy/sleeping Respiratory: normal respiratory effort Gastrointestinal (Abdomen): Inspection/Auscultation: + abdomen distended Percussion/Palpation: abdomen soft; abdomen nontender (appears non tender on exam) Results & Data Vital Signs (Past 12 Hours) Vital Signs Temp Pulse Pulse Resp BP BP Pulse Ox 10/14/23 13:28 115 H 20 163/106 H 92 10/14/23 13:14 105 H 10/14/23 10:27 104 H 20 162/105 H 98 10/14/23 09:30 110 H 20 98 10/14/23 09:06 99 H 10/14/23 08:50 98.4 F 111 H 20 137/114 H 98 O2 Del Method 10/14/23 13:28 Room Air 10/14/23 13:14 10/14/23 10:27 Room Air 10/14/23 09:30 Room Air 10/14/23 09:06 10/14/23 08:50 Room Air Diagnostic Findings ABDOMEN AND PELVIS CT WITH IV CONTRAST CT DOSE: 1542.11 mGy.cm HISTORY: Nausea. Vomiting. Small bowel obstruction. TECHNIQUE: Multiaxial CT images of the abdomen and pelvis were performed following the use of intravenous contrast. A dose lowering technique was utilized adhering to the principles of ALARA. COMPARISON STUDY: Abdomen and pelvis CT 12/23/2020. FINDINGS: Stable 9 mm irregular density within the right lung base on image 31. The left lung base is clear. No pneumoperitoneum. No pneumatosis. No acute fractures. Mild circumferential thickening of the distal esophagus. Tiny fat- containing umbilical hernia. Multiple gallstones within the decompressed gallbladder. The liver, spleen, adrenal glands, and pancreas are unremarkable. Bilateral renal hypodense lesions likely represent cysts. No hydronephrosis. The main portal vein is patent. Calcified plaque within the normal caliber abdominal aorta. There is a left retroaortic renal vein. No pelvic lymphadenopathy or pelvic free fluid. The bladder is decompressed by suprapubic catheter which appears in good position. Focal calcification noted at the bladder base. The stomach and proximal to mid small bowel are severely distended and filled with gas and fluid. There is a transitional point within the distal small bowel at the mid to lower abdomen on image 267. Therefore, these findings are consistent with a high-grade small bowel obstruction. This is likely due to an adhesion. There is also mild to moderate gaseous distention of the colon which is partially fluid-filled. IMPRESSION: 1. High-grade small bowel obstruction with the transition point located within the mid lower abdomen likely within the distal ileum. 2. Esophageal wall thickening suggestive of an esophagitis. 3. Distended segments of gas and fluid-filled large bowel. 4. Cholelithiasis. 5. Additional findings as described above. ACT 112: Negative or not required by law. PG Care Time/CCT Total # of Minutes Spent Total Time Spent with Patient: Total time spent is greater than 50% in coordination of care (as documented) at patient's floor/unit and/or counseling patient: Coding Level of Care Code 57695 OP VST NEW MOD 45 MIN Diagnoses Small bowel obstruction K56.609
[2023-10-14] MEDS ORDERED: PHARMACY GLYCEMIC MGMT CONSULT PRN (16:07)
[2023-10-14] MEDS ORDERED: GLUCOSE 10 TAB/TUBE PO PRN (16:07)
[2023-10-14] MEDS ORDERED: ACETAMINOPHEN 1,000 MG/100 ML VIAL IV PRN (16:07)
[2023-10-14] MEDS ORDERED: SOD PHOSPHATE/SOD BIPHOSPHATE ENEMA 132 ML BTL PR PRN (16:07)
[2023-10-14] MEDS ORDERED: CARBOHYDRATES FOR HYPOGLYCEMIA PO PRN (16:07)
[2023-10-14] MEDS ORDERED: METOPROLOL TARTRATE 1 MG/ML VIAL IV PRN (16:07)
[2023-10-14] MEDS ORDERED: ONDANSETRON INJ 2 MG/ML 2 ML VIAL IV PRN (16:07)
[2023-10-14] MEDS ORDERED: GLUCOSE 40% GEL 15 GM TUBE PO PRN (16:07)
[2023-10-14] MEDS ORDERED: GLUCAGON FOR INJ 1 MG VIAL SQ PRN (16:07)
[2023-10-14] MEDS ORDERED: INSULIN ASPART PER UNIT CHARGE SC SCH ×2 (16:30→21:00)
[2023-10-14] MEDS: INSULIN ASPART PER UNIT CHARGE SC SCH (18:20)
[2023-10-14] MEDS: PIPERACILLIN/TAZOBACTAM 4.5 GM in DEXTROSE 5% MINI-B 100 ML IV SCH (20:12)
[2023-10-14] MEDS: LANTUS PER UNIT CHARGE SQ SCH (21:10)
[2023-10-14 21:31] LABS: Magnesium 1.5 mg/dl (1.7-2.4)
[2023-10-14] MEDS: MAGNESIUM SULFATE / D5W 1 GM/100 ML BAG IV SCH (22:52)
--- NOTE | 2023-10-15 04:45 | Electrocardiogram Report ---
Test Reason : Blood Pressure : / mmHG Vent. Rate : 092 BPM Atrial Rate : 092 BPM P-R Int : 156 ms QRS Dur : 086 ms QT Int : 360 ms P-R-T Axes : 051 032 062 degrees QTc Int : 445 ms Normal sinus rhythm Nonspecific T wave abnormality Possible Inferior infarct When compared with ECG of 11-JUL-2023 13:49, Questionable change in QRS axis Confirmed by Mauricio Meek ([id number]) on 10/15/2023 4:45:12 AM Referred By: Confirmed By:Mauricio Meek
[2023-10-15 06:56] LABS: BUN Creatinine Ratio 13.1 (10-20); C Reactive Protein 3.83 mg/dl (0-0.5); Calcium 8.3 mg/dl (8.6-10.3); Creatinine Clr Calc Pharmacy 73.6 ml/min; Est GFR (African American) 89.7 ml/min; Est GFR (Non-African American) 77.4 ml/min; Magnesium 2.1 mg/dl (1.7-2.4)
[2023-10-15 07:11] LABS: Basophils # (auto) 0.03 K/uL (0.00-0.20); Basophils % (auto) 0.2 %; Eosinophils # (auto) 0.23 K/uL (0.00-0.50); Eosinophils % (auto) 1.8 %; Hematocrit (blood only) 39.8 % (42.0-52.0); Hemoglobin 13.7 g/dl (14.0-18.0); Immature Granulocytes # (auto) 0.04 K/uL (0.01-0.20); Immature Granulocytes % (auto) 0.3 %; Lymphocytes % (auto) 10.1 %; Mean Corpuscular Hemoglobin 31.3 pg (25.0-34.0); Mean Corpuscular Hgb Conc 34.4 g/dL (32.0-36.0); Mean Corpuscular Volume 90.9 fL (80.0-100.0); Mean Platelet Volume 9.2 fL (9.4-12.4); Monocytes # (auto) 1.01 K/uL (0.11-0.59); Monocytes % (auto) 7.8 %; Neutrophils % (auto) 79.8 %; Platelet Count 208 K/uL (130-400); RDW Coefficient of Variation 14.2 % (11.5-14.5); RDW Standard Deviation 47.3 fL (36.4-46.3); Red Blood Count 4.38 M/uL (4.70-6.10); White Blood Count 12.91 K/ul (4.8-10.8)
--- NOTE | 2023-10-15 08:00 | Surgery Progress Note ---
Date of Service October 15, 2023 Assessment & Plan (1) Small bowel obstruction: Plan: Patient here w/ concern for SBO. Historic imaging does reveal similar dilated small + large bowel and gastric distention with constipation NGT output documented >1L, majority of this was in the ER, minimal in canister at the moment HRs 90-100's, on room air, BPs stable. Labs show WBC 12, Hbg 13, K 3-- will need repleted On exam abdomen is distended, appears non tender to palpation No documentation of bowel function thus far KUB ordered this AM, but likely continue NGT until return of bowel function Admission and Anticipated Discharge Date Admission Date: October 14, 2023 Supervising Physician Co-Signing Physician Notes pnt S&E, labs and imaging reviewed, agree w/ above. SBO vs neurogenic functional bowel issue. States abd feels better, no bm or flatus. Abd distended, slightly less than yest, nt. KUB w/ distended small and large boewl. Cont ng tube, may need contrasted study if no improvement. Subjective Patient is sleeping. Shakes and nods heads to questions that I ask. Shakes head "no" in response to if he has any abdominal pain and "no" to if he had any recent BMs. Physical Exam Physical Exam: drowsy/sleeping Respiratory: normal respiratory effort Gastrointestinal (Abdomen): Inspection/Auscultation: + abdomen distended Percussion/Palpation: abdomen nontender (appears non tender on exam) Results & Data Vital Signs (Past 12 Hours) Vital Signs Temp Pulse Pulse Resp BP Pulse Ox O2 Del Method 10/15/23 03:15 97.7 F 97 H 19 143/83 H 94 Room Air 10/14/23 23:08 106 H 10/14/23 22:59 97.7 F 97 H 19 135/93 94 Room Air 10/14/23 22:09 114 H 10/14/23 22:09 Room Air 10/14/23 20:07 98.6 F 113 H 20 136/83 93 Room Air PG Care Time/CCT Total # of Minutes Spent Total Time Spent with Patient: Total time spent is greater than 50% in coordination of care (as documented) at patient's floor/unit and/or counseling patient: Coding Level of Care Code 86653 SUB INP/OBS CARE 07/03MIN Diagnoses Small bowel obstruction K56.609
[2023-10-15] MEDS: FAMOTIDINE 20MG IV PUSH 20 MG/5 ML SYR IV SCH ×2 (09:37→20:27)
[2023-10-15 10:31] LABS: A calco-baum cmplx NotReported Not Detected (NotDetected); Bact fragilis Not Reported Not Detected (NotDetected); Blood Culture Id Panel See PCR Comment (NotDetected); C auris Not Reported Not Detected (NotDetected); Calbicans Not Reported Not Detected (NotDetected); Candida glabrata Not Reported Not Detected (NotDetected); Candida krusei Not Reported Not Detected (NotDetected); Cneoformans/gatti Not Reported Not Detected (NotDetected); Cparapsilosis Not Reported Not Detected (NotDetected); E cloacae compx Not Reported Not Detected (NotDetected); Efaecalis Not Reported Not Detected (NotDetected); Efaecium Not Reported Not Detected (NotDetected); Enterobacterales Not Reported Not Detected (NotDetected); Escherichia coli Not Reported Not Detected (NotDetected); H influenzae Not Reported Not Detected (NotDetected); K aerogenes Not Reported Not Detected (NotDetected); Koxytoca Not Reported Not Detected (NotDetected); Kpneumoniae grp Not Reported Not Detected (NotDetected); Lmonocyt Not Reported Not Detected (NotDetected); N meningitidis Not Reported Not Detected (NotDetected); P aeruginosa Not Reported Not Detected (NotDetected); Proteus spp Not Reported Not Detected (NotDetected); Salmonella spp Not Reported Not Detected (NotDetected); Smarcescens Not Reported Not Detected (NotDetected); Staph lugdunensis Not Reported Not Detected (NotDetected); Staph spp. Not Reported DETECTED (NotDetected); Staphaureus Not Reported Not Detected (NotDetected); Staphepi Not Reported DETECTED (NotDetected); Stenmaltophilia Not Reported Not Detected (NotDetected); Strep agal(GrpB) Not Reported Not Detected (NotDetected); Strep pneum Not Reported Not Detected (NotDetected); Strep pyog (GrpA) Not Reported Not Detected (NotDetected); Strep spp Not Reported Not Detected (NotDetected)
[2023-10-15 10:54] LABS: Staphylococcus epidermidis DETECTED (NotDetected); Staphylococcus spp. DETECTED (NotDetected); mecAC Resistant Gene DETECTED (NotDetected)
--- NOTE | 2023-10-15 11:40 | XRay Report ---
XR KUB/Abdomen 1 view CLINICAL HISTORY: eval bowel/gas pattern TECHNIQUE: 1 view of the abdomen was obtained. Comparison: Comparison is made to abdomen radiographs 12/28/[address] abdomen pelvis 10/24/2023 FINDINGS: Lung bases are unremarkable. Degenerative changes are seen in the visualized skeleton. Multiple dilat ed loops of small bowel are seen. Small stool burden is seen. IMPRESSION: Multiple dilated loops of small bowel are seen. ACT 112: Negative or not required by law. Electronically signed by: Dimas Westbrook M.D. 10/15/2023 11:39 AM
[2023-10-15] MEDS: POTASSIUM CHLORIDE / WTR 10 MEQ/100 ML PLCT IV SCH (11:45)
--- NOTE | 2023-10-15 13:44 | Pharmacy Report ---
Pharmacy Glycemic Short Note 2 - Date of Service October 15, 2023 - Glycemic Short BSG Results (Last 24 hours): 10/14/23 10/14/23 10/14/23 17:50 20:14 23:51 Glucose POC Glucose 168 H 129 H 139 H 10/15/23 10/15/23 10/15/23 03:52 05:36 12:08 Glucose 132 H POC Glucose 147 H 144 H 108 H OUTPATIENT ANTIDIABETIC REGIMEN: * Basaglar 60 units HS; semaglutide 2 mg weekly * A1c 8.2% on 09/29/23 ASSESSMENT: * Patient is a 67 yo male with type 2 diabetes admitted for small bowel obstruction, currently NPO * Initially ordered 15 units BID of lantus (received 15 units last night) with fasting 144 mg/dL this morning- will scale PM dose as patient trending downward and remains NPO * Loosened Novolog parameters slightly- monitor for diet order PLAN FOR INPATIENT GLYCEMIC CONTROL: * Hold outpatient oral diabetes medications * Basal insulin * Lantus 10/15 units BID * Bolus insulin * NovoLog per scale ACHS or Q6hrs while NPO * Goal Range: Low 110 mg/dL - High 140 mg/dL * Correction Factor: 20 mg/dL/unit * Nutritional / Prandial insulin per carb ratio of 1 unit per 7 grams CHO consumed
--- NOTE | 2023-10-15 19:03 | Hospitalist Progress Note ---
Date of Service October 15, 2023 Assessment & Plan (1) Small bowel obstruction: Plan: Presented with N/V x [address] A/P revealed high-grade SBO. NG tube placed in ER and drained 1 L thus far but now minimal drainage Abdominal pain improved but no bowel movement or flatus yet He has underlying neurogenic bowel and chronically has dilated loops of bowel on previous imaging General surgery consulted-recommends continued medical management This likely was exacerbated by recent initiation of GLP-1 agonist as an outpatient-recommend discontinuing GLP-1 agonist moving forward No sepsis, lactate normal, leukocytosis likely stress reaction, procalcitonin negative, can likely discontinue Zosyn. Blood cultures 06/12 with Staph epidermidis which is likely a skin contaminant CT with esophagitis-continue IV Pepcid but increase to twice daily Continue Zosyn 4.5 g IV q8h for now but likely discontinue tomorrow Continue n.p.o., continue IV fluids but reduce rate to 100 MLS per hour Zofran as needed for nausea/vomiting Acetaminophen IV as needed for pain/fever Follow CBC, BMP, magnesium (2) Diabetes mellitus, type 2: Plan: Last A1c at 8.2% on 09/29/2023 Hold glimepiride, semaglutide and would not resume this given neurogenic bowel and history of bowel obstruction Patient is normally on Lantus 60u HS-giving much lower doses while n.p.o. Pharmacy glycemic consult in place (3) UTI (urinary tract infection) due to urinary indwelling catheter: Plan: Chronic indwelling suprapubic catheter UA positive on arrival but is likely colonized Urine culture mixed jeffrey Will likely discontinue Zosyn (4) Hypertension: Plan: Hold atenolol Metoprolol 5 mg IV q6h as needed for beta-charlotte withdrawal (HR >140 and SBP>120) With mild sinus tachycardia, continue IV fluids (5) Paraplegia: Plan: Noted Supportive care (6) Cerebral palsy: Plan: Chronic, supportive care, bedbound Lives in skilled nursing (7) Neuromuscular dysfunction of bladder: Plan: With suprapubic catheter in place Catheter care Plan Disposition: Continued stay on PCU telemetry DNR/DNI VTE PPx: SCDs, add Lovenox if prolonged stay Admission and Anticipated Discharge Date Admission Date: October 14, 2023 Subjective Patient denies abdominal pain or nausea. NG tube draining minimally. No flatus or bowel movement. No other concerns Telemetry with normal sinus rhythm and sinus tachycardia, PACs with rates in the 90s to 110s Physical Exam Constitutional: WD/WN, vitals as above Respiratory: normal respiratory effort, lungs clear to auscultation Cardiovascular: RRR, no murmur, no edema Gastrointestinal (Abdomen): Inspection/Auscultation: + abdomen distended (Mild) and + hypoactive bowel sounds Percussion/Palpation: abdomen soft; abdomen nontender Psychiatric: Orientation: alert, oriented to person, oriented to place and cooperative Results & Data Results & Data Vital Signs (Past 12 Hours) Vital Signs Temp Pulse Pulse Resp BP Pulse Ox O2 Del Method 10/15/23 16:16 96 H 10/15/23 14:33 36.7 C 103 H 17 149/81 H 95 Room Air 10/15/23 11:44 36.8 C 103 H 19 154/89 H 92 Room Air 10/15/23 08:40 105 H 10/15/23 08:28 Room Air 10/15/23 08:00 36.8 C 96 H 19 150/90 H 91 Room Air Laboratory Results CBC, VBG, BMP, magnesium, CRP, procalcitonin, LFTs reviewed Urine culture with mixed jeffrey PG Care Time/CCT Total # of Minutes Spent Total Time Spent with Patient: Total time spent is greater than 50% in coordination of care (as documented) at patient's floor/unit and/or counseling patient: Coding Level of Care Code 15369 SUB INP/OBS CARE 3/50MIN Diagnoses Small bowel obstruction K56.609 Diabetes mellitus, type 2 E11.9 UTI (urinary tract infection) due to urinary indwelling catheter T83.511A; N39.0 Essential hypertension I10 Hypertension type: essential hypertension Paraplegia G82.20 Cerebral palsy G80.9 Neuromuscular dysfunction of bladder N31.9 (4) Hypertension Hypertension type: essential hypertension Qualified Code(s): I10 - Essential (primary) hypertension
[2023-10-15] MEDS: DEXTROSE 50% 50 ML SYRINGE IV PRN (20:03)
[2023-10-15] MEDS: DEXTROSE 50% 50 ML SYRINGE IV ONE (20:05)
[2023-10-15] MEDS: CHLORASEPTIC (PHENOL) 1.4% SOLN 180 ML BTL MT PRN (23:54)
[2023-10-16] MEDS: D5W AND NSS 1,000 ML IV SCH (00:13)
[2023-10-16 06:27] LABS: Basophils # (auto) 0.03 K/uL (0.00-0.20); Basophils % (auto) 0.4 %; Eosinophils # (auto) 0.23 K/uL (0.00-0.50); Hematocrit (blood only) 36.3 % (42.0-52.0); Hemoglobin 12.1 g/dl (14.0-18.0); Immature Granulocytes # (auto) 0.03 K/uL (0.01-0.20); Immature Granulocytes % (auto) 0.4 %; Lymphocytes # (auto) 1.46 K/uL (1.20-3.40); Lymphocytes % (auto) 18.8 %; Mean Corpuscular Hemoglobin 30.8 pg (25.0-34.0); Mean Corpuscular Hgb Conc 33.3 g/dL (32.0-36.0); Mean Corpuscular Volume 92.4 fL (80.0-100.0); Mean Platelet Volume 9.1 fL (9.4-12.4); Monocytes # (auto) 0.58 K/uL (0.11-0.59); Monocytes % (auto) 7.5 %; Neutrophils # (auto) 5.42 K/uL (1.40-6.50); Neutrophils % (auto) 69.9 %; Platelet Count 180 K/uL (130-400); RDW Coefficient of Variation 13.9 % (11.5-14.5); RDW Standard Deviation 47.6 fL (36.4-46.3); Red Blood Count 3.93 M/uL (4.70-6.10); White Blood Count 7.75 K/ul (4.8-10.8)
[2023-10-16 06:46] LABS: BUN Creatinine Ratio 9.7 (10-20); Creatinine Clr Calc Pharmacy 78.6 ml/min; Est GFR (African American) 96.7 ml/min; Est GFR (Non-African American) 83.5 ml/min; Magnesium 1.8 mg/dl (1.7-2.4); Potassium 3.4 mmol/L (3.5-5.1)
--- NOTE | 2023-10-16 09:16 | Surgery Progress Note ---
Date of Service October 16, 2023 Assessment & Plan (1) Small bowel obstruction: Plan: Pt denies abd pain NGT draining 250/300 in 12 /24h continue for today VSS Abd distended, mildly firm to palpation Had small BM this AM Will continue to follow Admission and Anticipated Discharge Date Admission Date: October 14, 2023 Subjective pt awake , alert Denies abd pain NGT draining Reports BM this AM Review of Systems Gastrointestinal: no abdominal pain, no nausea and no vomiting Physical Exam Physical Exam: awake alert Constitutional: cooperative and comfortable; no acute distress Respiratory: normal respiratory effort and able to speak in complete sentences; no respiratory distress Cardiovascular: Rate/Rhythm: regular rate Gastrointestinal (Abdomen): Inspection/Auscultation: + abdomen distended Percussion/Palpation: + abdomen firm; abdomen nontender and no guarding Results & Data Vital Signs (Past 12 Hours) Vital Signs Temp Pulse Pulse Resp BP Pulse Ox O2 Del Method 10/16/23 08:00 97.9 F 88 20 166/95 H 96 Room Air 10/16/23 07:59 Room Air 10/16/23 03:47 98.2 F 99 H 18 141/85 H 94 Room Air 10/16/23 00:28 108 H 10/15/23 22:34 98.2 F 108 H 18 135/81 95 Room Air PG Care Time/CCT Total # of Minutes Spent Total Time Spent with Patient: Total time spent is greater than 50% in coordination of care (as documented) at patient's floor/unit and/or counseling patient: Coding Level of Care Code 92180 SUB INP/OBS CARE 1/25MIN Diagnoses Small bowel obstruction K56.609
[2023-10-16] MEDS: NYSTATIN SUSP 500,000 U/5 ML UDC PO SCH (09:43)
[2023-10-16] MEDS: LANTUS PER UNIT CHARGE SQ SCH (09:43)
--- NOTE | 2023-10-16 11:18 | XRay Report ---
XR KUB/Abdomen 1 view CLINICAL HISTORY: f/u SBO TECHNIQUE: 1 view of the abdomen was obtained. Comparison: Comparison is made to abdomen radiograph 10/15/2023 FINDINGS: Lung bases are unremarkable. The osseous structures are grossly unremarkable. Multiple enlarged loops of small bowel measure up to 35 mm. Colonic gas is also seen. IMPRESSION: Redemonstration of findings of small bowel obstruction. ACT 112: Negative or not required by law. Electronically signed by: Dimas Westbrook M.D. 10/16/2023 11:17 AM
[2023-10-16] MEDS: POTASSIUM CHLORIDE / WTR 10 MEQ/100 ML PLCT IV SCH (12:19)
[2023-10-16] MEDS: MAGNESIUM SULFATE / D5W 1 GM/100 ML BAG IV ONE (12:19)
[2023-10-16] MEDS: bisacodyL 10 MG SUPP PR STA (15:19)
--- NOTE | 2023-10-16 15:25 | Pharmacy Report ---
Pharmacy Glycemic Short Note 2 - Date of Service October 16, 2023 - Glycemic Short BSG Results (Last 24 hours): 10/15/23 10/15/23 10/15/23 16:51 19:57 20:17 Glucose POC Glucose 82 68 L* 134 H 10/15/23 10/16/23 10/16/23 23:56 00:49 05:47 Glucose POC Glucose 77 94 141 H 10/16/23 10/16/23 10/16/23 05:48 09:39 12:15 Glucose 149 H POC Glucose 152 H 123 H OUTPATIENT ANTIDIABETIC REGIMEN: * Basaglar 60 units HS; semaglutide 2 mg weekly * A1c 8.2% on 09/29/23 ASSESSMENT: 10/15: * Michael received 16 units of SQ insulin yesterday (15 units of this was basal) * Patient had an episode of hypoglycemia yesterday evening; BSG 68 mg/dL @1957. Evening Lantus dose was held and patient was started on D5NS @ 100 mg/dL, which ran for about 10 hours. * Fasting BSG of 141 mg/dL - of note, dextrose containing fluids were infusing when this value was reported. Will decrease basal insulin by ~33%. * Patient remains NPO. 10/14: * Patient is a 67 yo male with type 2 diabetes admitted for small bowel obstruction, currently NPO * Initially ordered 15 units BID of lantus (received 15 units last night) with fasting 144 mg/dL this morning- will scale PM dose as patient trending downward and remains NPO * Loosened Novolog parameters slightly- monitor for diet order PLAN FOR INPATIENT GLYCEMIC CONTROL: * Hold outpatient oral diabetes medications * Basal insulin * Lantus 0-5 units BID (5 units for BSG > 140 mg/dL) * Bolus insulin * NovoLog per scale ACHS or Q6hrs while NPO * Goal Range: Low 110 mg/dL - High 140 mg/dL * Correction Factor: 20 mg/dL/unit * Nutritional / Prandial insulin per carb ratio of 1 unit per 7 grams CHO consumed
[2023-10-16] MEDS: OPTIRAY 320 100ml IV ONE (15:51)
--- NOTE | 2023-10-16 16:16 | CT Scan Report ---
CT SCAN OF THE ABDOMEN AND PELVIS WITH IV CONTRAST CLINICAL HISTORY: Dilated bowel. COMPARISON STUDY: Abdominal CT dated 10/14/2023. TECHNIQUE: Following the IV administration of 92 cc of Optiray 320, CT scan of the abdomen and pelvi s is performed from the lung bases to the proximal femora. Images are reviewed in the axial, sagittal , and coronal planes. IV contrast was administered without complication. Oral contrast was utilized. A dose lowering technique was utilized adhering to the principles of ALARA. The examination is degrad ed by motion artifact. CT DOSE: 1424.14 mGy.cm FINDINGS: Lung bases: The heart is normal in size and without pericardial effusion. There are coronary artery c alcifications. There are trace pleural effusions with dependent atelectasis. Liver: The contrast-enhanced liver is normal in size, contour, and attenuation. There is no intrahepa tic biliary ductal dilatation. The hepatic veins and portal veins are patent. Gallbladder: There are calcified gallstones in the contracted gallbladder versus cystic duct remnant. . Spleen: Normal in size and attenuation. Pancreas: Moderately atrophic and grossly unremarkable. Adrenal glands: Unremarkable. Kidneys: The contrast enhanced kidneys are normal in size and without hydronephrosis. The kidneys enh ance symmetrically. Renal cysts measure up to 2.7 cm. Additional subcentimeter cortical hypodensities also likely represent cysts but are too small for definitive characterization. Abdominal vasculature: The abdominal aorta is normal in course and caliber noting advanced atheroscle rotic calcification. Stomach and bowel: There is a small hiatal hernia. An enteric tube terminates in the mid to distal st omach. The small bowel loops are normal in caliber, with no transition point identified and no eviden ce of persistent small bowel obstruction. Enteric contrast reaches the proximal ileum. There is marke d gaseous distention of the proximal sigmoid colon which is redundant and measures up to 13 cm in gale meter. The transverse colon is also distended, measuring up to 8 cm in diameter. There is focal narro wing of the mid to distal sigmoid colon with intraluminal stool. There is no CT evidence of mass lesi on. The appendix is normal as visualized. Peritoneum: There is no intraperitoneal free air or abdominal ascites. Lymphadenopathy: None. Pelvic viscera: The bladder is decompressed around a suprapubic catheter and appears circumferentiall y thick walled. The prostate gland is diminutive and heterogeneous. Skeletal structures: The skeletal structures are osteopenic. There is moderate lumbosacral spondylosi s. Arthritic change is seen in the hips. No lytic or blastic lesions are seen. IMPRESSION: 1. An enteric tube is in place. The small bowel loops are normal in caliber, with no evidence of pers istent small bowel obstruction on today's examination. 2. There is marked gaseous distention of the sigmoid colon, as well as gaseous distention of the jacobs sverse colon. There is focal narrowing of the mid to distal sigmoid colon, and this could represent c olonic ileus, underlying stricture, or less likely a sigmoid volvulus. There is no convincing CT evid ence of mass lesion. If warranted these findings could be further evaluated with colonoscopy. 3. There is no intraperitoneal free air or abdominal ascites. 4. Cholelithiasis. 5. Trace pleural effusions. 6. Additional findings as above. ACT 112: Negative or not required by law. Electronically signed by: Dick Castro M.D. 10/16/2023 4:15 PM
--- NOTE | 2023-10-16 18:33 | Hospitalist Progress Note ---
Date of Service October 16, 2023 Assessment & Plan (1) Small bowel obstruction: Plan: P/w N/V x [address] A/P revealed high-grade SBO. NG tube placed in ER and draining He has underlying neurogenic bowel and chronically has dilated loops of bowel on previous imaging This likely was exacerbated by recent initiation of GLP-1 agonist as an outpatient No sepsis, lactate normal, leukocytosis likely 2/2 stress reaction, procalcitonin negative. Blood cultures 06/12 with Staph epidermidis which is likely a skin contaminant, no need to repeat General surgery consulted-recommends continued medical management Repeat CT abd/pel 10/15 ordered by Surgery shows improvement in obstruction, significantly dilated colon, with sigmoid narrowing-could be stricture. No mass Abdominal pain improved and now passing multiple BMs on 10/15, NGT remains in place-hopefully can dc NGT on 10/16 Continue IVFs, watch glucose checks q4h while NPO Hopeful to advance to clears tomorrow after NGT removed CT with esophagitis-continue IV Pepcid twice daily Dc Zosyn-not needed for SBO Zofran as needed for nausea/vomiting Acetaminophen IV as needed for pain/fever Follow CBC, BMP, magnesium and replace lytes as needed-give KCl 20 meq IV and Magnesium 1 gram IV today Recommend discontinuing GLP-1 agonist after discharge Will await Surgery opinion on if needs intervention on sigmoid stricture seen on CT (2) Diabetes mellitus, type 2: Plan: Last A1c at 8.2% on 09/29/2023 Hold glimepiride, semaglutide and would not resume this given neurogenic bowel and history of bowel obstruction Patient is normally on Lantus 60u HS-giving much lower doses while n.p.o. Pharmacy glycemic consult in place (3) UTI (urinary tract infection) due to urinary indwelling catheter: Plan: Chronic indwelling suprapubic catheter UA positive on arrival but is likely colonized Urine culture mixed jeffrey Discontinued Zosyn (4) Hypertension: Plan: Holding home propranolol With mild sinus tachycardia, continue IV fluids and resume beta charlotte once taking po No need for tele monitoring-downgrade to medical unit Add IV hydralazine prn SBP>180 while NPO Resume losartan once taking po Continue holding lasix Hyperlipidemia-hold statin while NPO (5) Paraplegia: Plan: Noted Supportive care (6) Cerebral palsy: Plan: Chronic, supportive care, bedbound Lives in alf (7) Neuromuscular dysfunction of bladder: Plan: With suprapubic catheter in place Catheter care Plan Disposition: Continued stay but downgrade to med/surg, improving. Eventually back to [facility] where he is a permanent resident DNR/DNI VTE PPx: SCDs, add Lovenox if prolonged stay and no risk of surgery Admission and Anticipated Discharge Date Admission Date: October 14, 2023 Subjective Pt in great spirits today, happy, asks if I am . Denies any pain. has moved bowels multiple times today. NGT still draining some but a lot of it is the po contrast from his CT scan as per import coordinator with NSR, ST, PACs, rates 100s Physical Exam Constitutional: WD/WN, vitals as above ENMT: no oral thrush noted NGT in place Respiratory: normal respiratory effort, lungs clear to auscultation Cardiovascular: RRR, no murmur, no edema Gastrointestinal (Abdomen): Inspection/Auscultation: + abdomen distended (Mild) and normal bowel sounds Percussion/Palpation: abdomen soft; abdomen nontender Psychiatric: Orientation: alert, oriented to person, oriented to place and cooperative Results & Data Results & Data Vital Signs (Past 12 Hours) Vital Signs Temp Pulse Pulse Resp BP Pulse Ox O2 Del Method 10/16/23 16:15 36.4 C L 94 H 18 155/83 H 96 Room Air 10/16/23 15:19 94 H 10/16/23 12:15 36.8 C 96 H 17 153/82 H 95 Room Air 10/16/23 11:02 105 H 10/16/23 08:00 36.6 C 88 20 166/95 H 96 Room Air 10/16/23 07:59 Room Air Laboratory Results CBC, BMP, magnesium, blood cxs reviewed Diagnostic Findings CT A/P reviewed PG Care Time/CCT Total # of Minutes Spent Total Time Spent with Patient: Total time spent is greater than 50% in coordination of care (as documented) at patient's floor/unit and/or counseling patient: Coding Level of Care Code 16699 SUB INP/OBS CARE 3/50MIN Diagnoses Small bowel obstruction K56.609 Diabetes mellitus, type 2 E11.9 UTI (urinary tract infection) due to urinary indwelling catheter T83.511A; N39.0 Essential hypertension I10 Hypertension type: essential hypertension Paraplegia G82.20 Cerebral palsy G80.9 Neuromuscular dysfunction of bladder N31.9 (4) Hypertension Hypertension type: essential hypertension Qualified Code(s): I10 - Essential (primary) hypertension
[2023-10-16] MEDS ORDERED: hydrALAZINE HCL 20 MG/ML VIAL IV PRN (21:43)
[2023-10-17 08:24] LABS: Basophils # (auto) 0.02 K/uL (0.00-0.20); Basophils % (auto) 0.3 %; Eosinophils # (auto) 0.26 K/uL (0.00-0.50); Eosinophils % (auto) 4.3 %; Hematocrit (blood only) 35.7 % (42.0-52.0); Hemoglobin 12.2 g/dl (14.0-18.0); Immature Granulocytes # (auto) 0.02 K/uL (0.01-0.20); Immature Granulocytes % (auto) 0.3 %; Lymphocytes # (auto) 1.17 K/uL (1.20-3.40); Lymphocytes % (auto) 19.2 %; Mean Corpuscular Hemoglobin 30.9 pg (25.0-34.0); Mean Corpuscular Hgb Conc 34.2 g/dL (32.0-36.0); Mean Corpuscular Volume 90.4 fL (80.0-100.0); Monocytes # (auto) 0.46 K/uL (0.11-0.59); Monocytes % (auto) 7.6 %; Neutrophils # (auto) 4.15 K/uL (1.40-6.50); Neutrophils % (auto) 68.3 %; Platelet Count 189 K/uL (130-400); RDW Coefficient of Variation 13.5 % (11.5-14.5); RDW Standard Deviation 44.4 fL (36.4-46.3); Red Blood Count 3.95 M/uL (4.70-6.10); White Blood Count 6.08 K/ul (4.8-10.8)
[2023-10-17 09:09] LABS: BUN Creatinine Ratio 7.9 (10-20); Calcium 8.5 mg/dl (8.6-10.3); Creatinine Clr Calc Pharmacy 91.4 ml/min; Est GFR (African American) 107.9 ml/min; Est GFR (Non-African American) 93.1 ml/min; Magnesium 1.9 mg/dl (1.7-2.4); Potassium 3.3 mmol/L (3.5-5.1)
--- NOTE | 2023-10-17 11:08 | Surgery Progress Note ---
Date of Service October 17, 2023 Assessment & Plan (1) Small bowel obstruction: Plan: chronic functional neurogenic bowel dysfunction, less likely sbo. Resolving. KUB pending, if contrast progressing then d/c ng and start clears f/u KUB likely d/c ng and start clears, adv to low fiber as tolerated Dr. Kelly covering over weekend. Admission and Anticipated Discharge Date Admission Date: October 14, 2023 Subjective functional neurogenic bowel issue vs obstruction. +mult loose bm's, flatus, no pain. NG minimal output. CT yest w/ no obstruction. kub pending Physical Exam Constitutional: WD/WN, vitals as above Respiratory: normal respiratory effort, lungs clear to auscultation Cardiovascular: RRR, no murmur, no edema Gastrointestinal (Abdomen): normal bowel sounds, soft, nontender, no hepatosplenomegaly Inspection/Auscultation: + abdomen distended Results & Data Vital Signs (Past 12 Hours) Vital Signs Temp Pulse Resp BP BP Pulse Ox O2 Del Method 10/17/23 08:05 102 H 10/17/23 08:05 Room Air 10/17/23 07:11 36.8 C 108 H 18 174/86 H 161/82 H 93 Room Air PG Care Time/CCT Total # of Minutes Spent Total Time Spent with Patient: Total time spent is greater than 50% in coordination of care (as documented) at patient's floor/unit and/or counseling patient: Coding Level of Care Code 39034 SUB INP/OBS CARE 2/35MIN Diagnoses Small bowel obstruction K56.609
--- NOTE | 2023-10-17 11:15 | XRay Report ---
XR KUB/Abdomen 1 view CLINICAL HISTORY: eval passage of oral contrast, bowel/gas pattern TECHNIQUE: 1 view of the abdomen was obtained. Comparison: Comparison is made to abdomen radiograph 10/16/[address] abdomen pelvis 10/16/2023 FINDINGS: Stable enteric tube. Degenerative changes are seen in the visualized skeleton. Prominent dilation of the sigmoid colon is again seen. Previously noted enteric contrast appears to lie within the cecum. A moderate amount of stool is noted within the large bowel. IMPRESSION: Enteric contrast is now seen in the cecum, progressed from prior CT. ACT 112: Negative or not required by law. Electronically signed by: Dimas Westbrook M.D. 10/17/2023 11:14 AM
[2023-10-17] MEDS ORDERED: Nursing to Pharmacy Communication SCH (12:00)
[2023-10-17] MEDS: INSULIN ASPART PER UNIT CHARGE SC SCH (12:01)
--- NOTE | 2023-10-17 14:27 | Pharmacy Report ---
Pharmacy Glycemic Short Note 2 - Date of Service October 17, 2023 - Glycemic Short BSG Results (Last 24 hours): 10/16/23 10/16/23 10/16/23 18:39 20:12 23:52 Glucose POC Glucose 93 89 90 10/17/23 10/17/23 10/17/23 06:17 07:53 09:33 Glucose 92 POC Glucose 91 90 10/17/23 12:00 Glucose POC Glucose 80 OUTPATIENT ANTIDIABETIC REGIMEN: * Basaglar 60 units HS; semaglutide 2 mg weekly * A1c 8.2% on 09/29/23 ASSESSMENT: 10/16: * Michael received 5 units of basal insulin yesterday * Diet advanced this afternoon to clears, BSGs below goal range, but not hypoglycemic. Will continue low dose basal insulin based on BSGs, and titrate as diet advanced * No correctional given in over 48 hours, unable to assess * LR currently running at 70mls/hr 10/15: * Michael received 16 units of SQ insulin yesterday (15 units of this was basal) * Patient had an episode of hypoglycemia yesterday evening; BSG 68 mg/dL @1957. Evening Lantus dose was held and patient was started on D5NS @ 100 mg/dL, which ran for about 10 hours. * Fasting BSG of 141 mg/dL - of note, dextrose containing fluids were infusing when this value was reported. Will decrease basal insulin by ~33%. * Patient remains NPO. 10/14: * Patient is a 67 yo male with type 2 diabetes admitted for small bowel obstruction, currently NPO * Initially ordered 15 units BID of lantus (received 15 units last night) with fasting 144 mg/dL this morning- will scale PM dose as patient trending downward and remains NPO * Loosened Novolog parameters slightly- monitor for diet order PLAN FOR INPATIENT GLYCEMIC CONTROL: * Hold outpatient oral diabetes medications * Basal insulin * Lantus 0-5 units BID (5 units for BSG > 140 mg/dL) * Bolus insulin * NovoLog per scale ACHS or Q6hrs while NPO * Goal Range: Low 110 mg/dL - High 140 mg/dL * Correction Factor: 20 mg/dL/unit * Nutritional / Prandial insulin per carb ratio of 1 unit per 7 grams CHO consumed
--- NOTE | 2023-10-17 18:52 | Hospitalist Progress Note ---
Date of Service October 17, 2023 Assessment & Plan (1) Small bowel obstruction: Plan: Presented with N/V x [address] A/P revealed high-grade SBO. NG tube placed in ER. He has underlying neurogenic bowel and chronically has dilated loops of bowel on previous imaging This likely was exacerbated by recent initiation of GLP-1 agonist as an outpatient On admission, no sepsis, lactate normal, leukocytosis likely 2/2 stress reaction, procalcitonin negative. Blood cultures 06/12 with Staph epidermidis which is likely a skin contaminant, no need to repeat. General surgery consulted-recommends continued medical management Repeat CT abd/pel 10/15 ordered by Surgery shows improvement in obstruction, significantly dilated colon, with sigmoid narrowing-could be stricture. No mass Abdominal pain continues to improve and patient continues to pass gas and have multiple BMs. NG tube removed on 10/17/2023. Continue clear liquids. Advance as tolerated. CT with esophagitis-continue IV Pepcid twice daily Zofran as needed for nausea/vomiting Acetaminophen IV as needed for pain/fever Follow CBC, BMP, magnesium and replace lytes as needed Recommend discontinuing GLP-1 agonist after discharge Will await Surgery opinion on if needs intervention on sigmoid stricture seen on CT (2) Diabetes mellitus, type 2: Plan: Last A1c at 8.2% on 09/29/2023 Hold glimepiride, semaglutide and would not resume this given neurogenic bowel and history of bowel obstruction Patient is normally on Lantus 60u HS-giving much lower doses while n.p.o. Pharmacy glycemic consult in place (3) UTI (urinary tract infection) due to urinary indwelling catheter: Plan: Chronic indwelling suprapubic catheter UA positive on arrival but is likely colonized Urine culture mixed jeffrey Discontinued Zosyn (4) Hypertension: Plan: Holding home propranolol With mild sinus tachycardia, continue IV fluids and resume beta charlotte once taking po No need for tele monitoring-downgrade to medical unit Add IV hydralazine prn SBP>180 while NPO Resume losartan once taking po Continue holding lasix Hyperlipidemia-hold statin while NPO (5) Paraplegia: Plan: Noted Supportive care (6) Cerebral palsy: Plan: Chronic, supportive care, bedbound Lives in alf (7) Neuromuscular dysfunction of bladder: Plan: With suprapubic catheter in place Catheter care Plan NGT removed today and started on clear liquids. Advance as tolerated. Potassium repleted today. Disposition: Continued stay but downgrade to med/surg, improving. Eventually back to [facility] where he is a permanent resident CODE STATUS: DNR/DNI VTE PPx: SCDs, add Lovenox if prolonged stay and no risk of surgery Admission and Anticipated Discharge Date Admission Date: October 14, 2023 Subjective Patient seen and evaluated at bedside. NG tube pulled this morning and patient was started on clear liquids, well-tolerated so far. He does still have some abdominal distention, but denies any abdominal pain or discomfort. Patient continues to pass gas and have some loose bowel movements. This is more likely due to neurogenic bowel than SBO. Physical Exam Physical Exam: General: No acute distress, nondiaphoretic, well-developed, well-nourished. Skin: The skin was without rashes, erythema, edema, or bruising. Cardiac: Regular rate and rhythm without murmurs gallops or rubs. Pulm: Clear to auscultation bilaterally without wheezes, rales or rhonchi. No retractions or accessory muscle use. Abdominal: Positive bowel sounds. Positive distention. Nontender, without masses or organomegaly. No guarding or rebound tenderness. Neuro: A&O x3. No focal neurological deficits. Results & Data Results & Data Vital Signs (Past 12 Hours) Vital Signs Temp Pulse Resp BP BP Pulse Ox O2 Del Method 10/17/23 14:15 36.8 C 108 H 16 171/94 H 163/97 H 95 Room Air 10/17/23 08:05 102 H 10/17/23 08:05 Room Air 10/17/23 07:11 36.8 C 108 H 18 174/86 H 161/82 H 93 Room Air Laboratory Results Reviewed CBC Reviewed BMP, repleted sodium Diagnostic Findings Reviewed KUB 10/17/2023: FINDINGS: Stable enteric tube. Degenerative changes are seen in the visualized skeleton. Prominent dilation of the sigmoid colon is again seen. Previously noted enteric contrast appears to lie within the cecum. A moderate amount of stool is noted within the large bowel. IMPRESSION: Enteric contrast is now seen in the cecum, progressed from prior CT. PG Care Time/CCT Total # of Minutes Spent Total Time Spent with Patient: Total time spent is greater than 50% in coordination of care (as documented) at patient's floor/unit and/or counseling patient: Coding Level of Care Code 84991 SUB INP/OBS CARE 50MIN Diagnoses Small bowel obstruction K56.609 Diabetes mellitus, type 2 E11.9 UTI (urinary tract infection) due to urinary indwelling catheter T83.511A; N39.0 Essential hypertension I10 Hypertension type: essential hypertension Paraplegia G82.20 Cerebral palsy G80.9 Neuromuscular dysfunction of bladder N31.9 (4) Hypertension Hypertension type: essential hypertension Qualified Code(s): I10 - Essential (primary) hypertension
[2023-10-17] MEDS: POTASSIUM CHLORIDE CRTAB 20 MEQ TABCR PO STA (20:23)
[2023-10-18 07:52] LABS: Hematocrit (blood only) 34.2 % (42.0-52.0); Hemoglobin 11.8 g/dl (14.0-18.0); Mean Corpuscular Hemoglobin 30.9 pg (25.0-34.0); Mean Corpuscular Hgb Conc 34.5 g/dL (32.0-36.0); Mean Corpuscular Volume 89.5 fL (80.0-100.0); Mean Platelet Volume 8.9 fL (9.4-12.4); Platelet Count 211 K/uL (130-400); RDW Coefficient of Variation 13.4 % (11.5-14.5); RDW Standard Deviation 43.6 fL (36.4-46.3); Red Blood Count 3.82 M/uL (4.70-6.10); White Blood Count 5.52 K/ul (4.8-10.8)
[2023-10-18 08:40] LABS: BUN Creatinine Ratio 6.8 (10-20); Calcium 8.4 mg/dl (8.6-10.3); Creatinine Clr Calc Pharmacy 94.9 ml/min; Est GFR (African American) 109.1 ml/min; Est GFR (Non-African American) 94.1 ml/min; Potassium 3.1 mmol/L (3.5-5.1)
--- NOTE | 2023-10-18 09:43 | Surgery Progress Note ---
Date of Service October 18, 2023 Assessment & Plan (1) Small bowel obstruction: Plan: 10/18/23 Michael is doing well. +BM, + Passing Flatus. Will advance diet to full liquids. Patient seen and examined with Dr. Kelly. Admission and Anticipated Discharge Date Admission Date: October 14, 2023 Supervising Physician Co-Signing Physician Notes Doing well and tolerating clears No abdominal pain, still with some distension Is having BM's Will start fulls today and see how he tolerates this Subjective Michael is resting in bed comfortably. He denies abdominal pain. He denies nausea/vomiting. He reports that he is moving his bowels and passing flatus. He is tolerating clear liquids, does feel hungry. Review of Systems Constitutional: as per Subjective / HPI; no fever and no chills Gastrointestinal: + abdominal pain (mildly tender with pal pation); no nausea and no vomiting Physical Exam Constitutional: WD/WN, vitals as above Respiratory: normal respiratory effort, lungs clear to auscultation normal respiratory effort; no respiratory distress and no labored breathing Cardiovascular: RRR, no murmur, no edema Gastrointestinal (Abdomen): normal bowel sounds, soft, nontender, no hepatospl enomegaly Inspection/Auscultation: + abdomen distended Results & Data Vital Signs (Past 12 Hours) Vital Signs Temp Pulse Resp BP Pulse Ox O2 Del Method 10/18/23 08:48 36.6 C 93 H 18 165/82 H 92 Room Air PG Care Time/CCT Total # of Minutes Spent Total Time Spent with Patient: Total time spent is greater than 50% in coordination of care (as documented) at patient's floor/unit and/or counseling patient: Coding Level of Care Code 75349 SUB INP/OBS CARE 2/35MIN Diagnoses Small bowel obstruction K56.609
--- NOTE | 2023-10-18 10:29 | Hospitalist Progress Note ---
Date of Service October 18, 2023 Assessment & Plan (1) Small bowel obstruction: Plan: - Presented with N/V x [address] A/P revealed high-grade SBO. NG tube placed in ER. - He has underlying neurogenic bowel and chronically has dilated loops of bowel on previous imaging. -- This likely was exacerbated by recent initiation of GLP-1 agonist as an outpatient. - On admission, no sepsis, lactate normal, leukocytosis likely 2/2 stress reaction, procalcitonin negative. - Blood cultures 06/12 with Staph epidermidis which is likely a skin contaminant, no need to repeat. - General surgery consulted-recommends continued medical management - Repeat CT abd/pel 10/15 ordered by Surgery shows improvement in obstruction, significantly dilated colon, with sigmoid narrowing-could be stricture. No mass. - Abdominal pain continues to improve and patient continues to pass gas and have multiple BMs. NG tube removed on 10/17/2023. - Diet advanced to full liquids 10/18/23. CT with esophagitis-continue IV Pepcid twice daily Zofran as needed for nausea/vomiting Acetaminophen IV as needed for pain/fever Follow CBC, BMP, magnesium and replace lytes as needed Recommend discontinuing GLP-1 agonist after discharge Will await Surgery opinion on if needs intervention on sigmoid stricture seen on CT. (2) Diabetes mellitus, type 2: Plan: Last A1c at 8.2% on 09/29/2023 Hold glimepiride, semaglutide and would not resume this given neurogenic bowel and history of bowel obstruction Patient is normally on Lantus 60u HS Pharmacy glycemic consult in place (3) UTI (urinary tract infection) due to urinary indwelling catheter: Plan: Chronic indwelling suprapubic catheter UA positive on arrival but is likely colonized Urine culture mixed jeffrey Discontinued Zosyn (4) Hypertension: Plan: - Resumed propanolol, losartan, statin, and Lasix 10/18/23 since patient is tolerating oral diet. - IV hydralazine PRN for SBP >180 (5) Paraplegia: Plan: Noted Supportive care (6) Cerebral palsy: Plan: Chronic, supportive care, bedbound Lives in senior living (7) Neuromuscular dysfunction of bladder: Plan: With suprapubic catheter in place Catheter care Plan Resumed propanolol, losartan, statin, and Lasix 10/18/23 since patient is tolerating oral diet. Advanced diet to full liquids. Continue to advance as tolerated. Repleted potassium. Disposition: Continued stay but downgrade to med/surg, improving. Eventually shikha k to [facility] where he is a permanent resident CODE STATUS: DNR/DNI VTE PPx: SCDs, add Lovenox if prolonged stay and no risk of surgery Admission and Anticipated Discharge Date Admission Date: October 14, 2023 Subjective Patient seen and evaluated at bedside. He does still have some abdominal distention, but this is improving. He denies any abdominal pain. He does report loose bowel movements and passing gas. He tolerated the clear liquid diet well yesterday. Advancing to full liquids today. Resumed his oral BP and cholesterol meds that were held while the patient was NPO. Patient has no complaints at this time. Physical Exam Physical Exam: General: No acute distress, nondiaphoretic, well-developed, well-nourished. Skin: The skin was without rashes, erythema, edema, or bruising. Cardiac: Regular rate and rhythm without murmurs gallops or rubs. Pulm: Clear to auscultation bilaterally without wheezes, rales or rhonchi. No retractions or accessory muscle use. Abdominal: Positive bowel sounds. Still some distention. Soft, nontender, without masses or organomegaly. No guarding or rebound tenderness. Neuro: A&O x3. No focal neurological deficits. Results & Data Results & Data Vital Signs (Past 12 Hours) Vital Signs Temp Pulse Resp BP Pulse Ox O2 Del Method 10/18/23 08:48 36.6 C 93 H 18 165/82 H 92 Room Air Laboratory Results Reviewed CBC Reviewed BMP, repleted K PG Care Time/CCT Total # of Minutes Spent Total Time Spent with Patient: Total time spent is greater than 50% in coordination of care (as documented) at patient's floor/unit and/or counseling patient: Coding Level of Care Code 31334 SUB INP/OBS CARE 3/50MIN Diagnoses Small bowel obstruction K56.609 Diabetes mellitus, type 2 E11.9 UTI (urinary tract infection) due to urinary indwelling catheter T83.511A; N39 .0 Essential hypertension I10 Hypertension type: essential hypertension Paraplegia G82.20 Cerebral palsy G80.9 Neuromuscular dysfunction of bladder N31.9 (4) Hypertension Hypertension type: essential hypertension Qualified Code(s): I10 - Essential (primary) hypertension
[2023-10-18] MEDS: POTASSIUM CHLORIDE CRTAB 20 MEQ TABCR PO SCH (12:08)
[2023-10-18] MEDS: PROPRANOLOL HCL 60 MG LA CAP PO SCH (12:10)
[2023-10-18] MEDS: FUROSEMIDE 40 MG TAB PO SCH (12:10)
[2023-10-18] MEDS: LOSARTAN POTASSIUM 50 MG TAB PO SCH (12:10)
[2023-10-18] MEDS: ATORVASTATIN 20 MG TAB PO SCH (20:25)
[2023-10-19 07:24] LABS: Hematocrit (blood only) 37.1 % (42.0-52.0); Hemoglobin 13.1 g/dl (14.0-18.0); Mean Corpuscular Hemoglobin 31.6 pg (25.0-34.0); Mean Corpuscular Hgb Conc 35.3 g/dL (32.0-36.0); Mean Corpuscular Volume 89.4 fL (80.0-100.0); Platelet Count 235 K/uL (130-400); RDW Coefficient of Variation 13.4 % (11.5-14.5); RDW Standard Deviation 43.6 fL (36.4-46.3); Red Blood Count 4.15 M/uL (4.70-6.10); White Blood Count 6.43 K/ul (4.8-10.8)
[2023-10-19 07:43] LABS: BUN Creatinine Ratio 4.8 (10-20); Creatinine Clr Calc Pharmacy 83.6 ml/min; Est GFR (African American) 103.5 ml/min; Est GFR (Non-African American) 89.3 ml/min; Potassium 3.3 mmol/L (3.5-5.1)
--- NOTE | 2023-10-19 08:45 | Surgery Progress Note ---
Date of Service October 19, 2023 Assessment & Plan (1) SBO (small bowel obstruction): Plan: He is tolerating full liquids, will advance to a low fiber diet He has return of bowel function If he tolerates his low fiber diet, he can be discharged from a surgical [facility] Surgery will sign off at this time, please call with any questions or concerns Admission and Anticipated Discharge Date Admission Date: October 14, 2023 Subjective Patient seen and examined. Tolerated full liquids yesterday. He is having a decent amount of diarrhea. He denies abdominal pain. Review of Systems Constitutional: no fever and no chills Gastrointestinal: no abdominal pain, no nausea and no vomiting Physical Exam Constitutional: WD/WN, vitals as above Gastrointestinal (Abdomen): Inspection/Auscultation: abdomen normal to inspection and + abdomen distended Percussion/Palpation: abdomen soft; abdomen nontender and no guarding Results & Data Vital Signs (Past 12 Hours) Vital Signs Temp Pulse Resp BP Pulse Ox O2 Del Method 10/19/23 07:30 36.7 C 73 16 151/82 H 95 Room Air 10/18/23 22:15 Room Air 10/18/23 21:04 36.5 C 77 16 142/88 H 95 Room Air PG Care Time/CCT Total # of Minutes Spent Total Time Spent with Patient: Total time spent is greater than 50% in coordination of care (as documented) at patient's floor/unit and/or counseling patient: Coding Level of Care Code 31122 SUB INP/OBS CARE 07/03MIN Diagnoses SBO (small bowel obstruction) K56.609
--- NOTE | 2023-10-19 10:16 | Hospitalist Progress Note ---
Date of Service October 19, 2023 Assessment & Plan (1) Small bowel obstruction: Plan: - Presented with N/V x [address] A/P revealed high-grade SBO. NG tube placed in ER. - He has underlying neurogenic bowel and chronically has dilated loops of bowel on previous imaging. -- This likely was exacerbated by recent initiation of GLP-1 agonist as an outpatient. - On admission, no sepsis, lactate normal, leukocytosis likely 2/2 stress reaction, procalcitonin negative. - Blood cultures 06/12 with Staph epidermidis which is likely a skin contaminant, no need to repeat. - General surgery consulted-recommends continued medical management - Repeat CT abd/pel 10/15 ordered by Surgery shows improvement in obstruction, significantly dilated colon, with sigmoid narrowing-could be stricture. No mass. - Abdominal pain continues to improve and patient continues to pass gas and have multiple BMs. NG tube removed on 10/17/2023. - Diet advanced to low fiber 10/19/23. - Patient continues to have multiple liquid bowel movements. -- C. diff ordered - pending. CT with esophagitis-continue IV Pepcid twice daily Zofran as needed for nausea/vomiting Acetaminophen IV as needed for pain/fever Follow CBC, BMP, magnesium and replace lytes as needed Recommend discontinuing GLP-1 agonist after discharge (2) Diabetes mellitus, type 2: Plan: Last A1c at 8.2% on 09/29/2023 Hold glimepiride, semaglutide and would not resume this given neurogenic bowel and history of bowel obstruction Patient is normally on Lantus 60u HS Pharmacy glycemic consult in place (3) UTI (urinary tract infection) due to urinary indwelling catheter: Plan: Chronic indwelling suprapubic catheter UA positive on arrival but is likely colonized Urine culture mixed jeffrey Discontinued Zosyn (4) Hypertension: Plan: - Resumed propanolol, losartan, statin, and Lasix 10/18/23 since patient is tolerating oral diet. - IV hydralazine PRN for SBP >180 (5) Paraplegia: Plan: Noted Supportive care (6) Cerebral palsy: Plan: Chronic, supportive care, bedbound Lives in shelter (7) Neuromuscular dysfunction of bladder: Plan: With suprapubic catheter in place Catheter care Plan Ordered C. diff in setting of patient having frequent liquid BMs and SNF resident. Advanced diet to low fiber. Continue to advance as tolerated. Repleted potassium today. Recommend supplemental K 20 meq QAM x5 days on discharge. Disposition: Continued stay but downgrade to med/surg, improving. Eventually back to [facility] where he is a permanent resident CODE STATUS: DNR/DNI VTE PPx: SCDs, add Lovenox if prolonged stay and no risk of surgery Admission and Anticipated Discharge Date Admission Date: October 14, 2023 Subjective Patient seen and evaluated at bedside. He continues to have frequent liquid bowel movements. Per nursing, he experienced 4-6 episodes of diarrhea over night. Checking for C. diff today given the nature of his bowel movements and that the patient is at increased risk for C. diff as a SNF resident. Otherwise, patient has no complaints. He tolerated full liquid diet well yesterday. Low fiber diet initiated today. Patient's abdomen is definitely less distended today. Physical Exam Physical Exam: General: No acute distress, nondiaphoretic, well-developed, well-nourished. Skin: The skin was without rashes, erythema, edema, or bruising. Cardiac: Regular rate and rhythm without murmurs gallops or rubs. Pulm: Clear to auscultation bilaterally without wheezes, rales or rhonchi. No retractions or accessory muscle use. Abdominal: Positive bowel sounds. Still some distention, improving. Soft, nont adelina, without masses or organomegaly. No guarding or rebound tenderness. Neuro: A&O x3. No focal neurological deficits. Results & Data Results & Data Vital Signs (Past 12 Hours) Vital Signs Temp Pulse Resp BP Pulse Ox O2 Del Method 10/19/23 07:30 36.7 C 73 16 151/82 H 95 Room Air 10/18/23 22:15 Room Air Laboratory Results Reviewed CBC Reviewed BMP Ordered C. diff - pending PG Care Time/CCT Total # of Minutes Spent Total Time Spent with Patient: Total time spent is greater than 50% in coordination of care (as documented) at patient's floor/unit and/or counseling patient: Coding Level of Care Code 32374 SUB INP/OBS CARE 3/50MIN Diagnoses Small bowel obstruction K56.609 Diabetes mellitus, type 2 E11.9 UTI (urinary tract infection) due to urinary indwelling catheter T83.511A; N39.0 Essential hypertension I10 Hypertension type: essential hypertension Paraplegia G82.20 Cerebral palsy G80.9 Neuromuscular dysfunction of bladder N31.9 (4) Hypertension Hypertension type: essential hypertension Qualified Code(s): I10 - Essential (primary) hypertension
[2023-10-19] MEDS: POTASSIUM CHLORIDE CRTAB 20 MEQ TABCR PO STA (12:17)
[2023-10-20 07:54] LABS: Hematocrit (blood only) 39.8 % (42.0-52.0); Hemoglobin 13.9 g/dl (14.0-18.0); Mean Corpuscular Hemoglobin 31.6 pg (25.0-34.0); Mean Corpuscular Hgb Conc 34.9 g/dL (32.0-36.0); Mean Corpuscular Volume 90.5 fL (80.0-100.0); Mean Platelet Volume 9.2 fL (9.4-12.4); Platelet Count 275 K/uL (130-400); RDW Coefficient of Variation 13.6 % (11.5-14.5); RDW Standard Deviation 44.2 fL (36.4-46.3); White Blood Count 8.58 K/ul (4.8-10.8)
[2023-10-20 08:58] LABS: BUN Creatinine Ratio 13.8 (10-20); Creatinine Clr Calc Pharmacy 64.4 ml/min; Est GFR (African American) 79.8 ml/min; Est GFR (Non-African American) 68.9 ml/min; Potassium 3.5 mmol/L (3.5-5.1)
--- NOTE | 2023-10-20 09:39 | Pharmacy Report ---
Pharmacy Glycemic Short Note 2 - Date of Service October 20, 2023 - Glycemic Short BSG Results (Last 24 hours): 10/19/23 10/19/23 10/19/23 11:54 16:45 21:12 Glucose POC Glucose 139 H 127 H 138 H 10/20/23 10/20/23 06:48 07:50 Glucose 153 H POC Glucose 175 H OUTPATIENT ANTIDIABETIC REGIMEN: * Basaglar 60 units HS; semaglutide 2 mg weekly * A1c 8.2% on 09/29/23 ASSESSMENT: 10/19: * Stressors stable * AM fasting BSG slightly above goal, but patient has not received any Lantus since 10/15 AM. Will adjust Lantus to 0-5 units daily based on BSG. * Post-prandial BSG's were reasonable yesterday. No change to Novolog. 10/16: * Michael received 5 units of basal insulin yesterday * Diet advanced this afternoon to clears, BSGs below goal range, but not hypoglycemic. Will continue low dose basal insulin based on BSGs, and titrate as diet advanced * No correctional given in over 48 hours, unable to assess * LR currently running at 70mls/hr 10/15: * Michael received 16 units of SQ insulin yesterday (15 units of this was basal) * Patient had an episode of hypoglycemia yesterday evening; BSG 68 mg/dL @1957. Evening Lantus dose was held and patient was started on D5NS @ 100 mg/dL, which ran for about 10 hours. * Fasting BSG of 141 mg/dL - of note, dextrose containing fluids were infusing when this value was reported. Will decrease basal insulin by ~33%. * Patient remains NPO. 10/14: * Patient is a 67 yo male with type 2 diabetes admitted for small bowel obstruction, currently NPO * Initially ordered 15 units BID of lantus (received 15 units last night) with fasting 144 mg/dL this morning- will scale PM dose as patient trending downward and remains NPO * Loosened Novolog parameters slightly- monitor for diet order PLAN FOR INPATIENT GLYCEMIC CONTROL: * Hold outpatient oral diabetes medications * Basal insulin * Lantus 0-5 units daily (5 units for BSG > 140 mg/dL) * Bolus insulin * NovoLog per scale ACHS or Q6hrs while NPO * Goal Range: Low 110 mg/dL - High 140 mg/dL * Correction Factor: 20 mg/dL/unit * Nutritional / Prandial insulin per carb ratio of 1 unit per 7 grams CHO c onsumed
--- NOTE | 2023-10-20 15:42 | Discharge Summary ---
Discharge Summary Date of Service October 20, 2023 Notes For Next Care Provider Recommend avoiding GLP-1 agonists due to neurogenic bowel and history of bowel obstructions Medication Changes From Visit Discontinued semaglutide and glimepiride Admission HPI Per Admitting Provider Michael is a 67-year-old male with PMH of cerebral palsy, paraplegia, HTN, HLD, meta bolic encephalopathy, spina bifida, catheter associated UTI, sepsis, and sacral ulcers. He presented from [facility] on 10/13 for nausea and vomiting, which has been ongoing over the past 3 days. Patient's sister/POA (Maribeth) is at the bedside and provides most the history, as patient is lethargic and minimally responsive to questioning (which started shortly after he received Benadryl in the ED). Patient's sister saw him yesterday, and noticed significant abdominal distention. No change in cognitive baseline, per sister. No history of abdominal surgeries or prior small bowel obstructions, but she notes that his brother had the same thing in the past. Patient has been vomiting brown-colored emesis, and it is unclear if he has been having any hematemesis or coffee-ground emesis. Patient denies smoking, alcohol use, and tobacco use. Patient's sister/POA reconfirms that he is DNR/DNI status. Patient is hypertensive at 162/105 and tachycardic at 105 bpm at time of admission. ED course: Zofran 4 mg IV x 2 Reglan 5 mg IV Benadryl 25 mg IV NSS 1000 mL IV Unable to obtain full ROS in patient's current state, however he denies any fever, chest pain, or difficulty breathing at this time. Admission Exam Per Admitting Provider General: no acute distress; lethargic; NG tube in place non-toxic appearing; w ell-nourished; cooperative; SpO2 92% on RA HEENT: normocephalic, atraumatic; NG tube in place; no scleral icterus; pinpoint pupils; dry mucus membrane; brown vomit ayush under lip; vision and hearing g rossly intact Neck: supple; no lymphadenopathy; trachea midline Skin: warm, dry without signs of tenting; no cyanosis; no rashes, bruising, lesions, or erythema noted CV: chest wall NTP; RRR; S1/S2 normal; no murmurs/rubs/gallops; pulses intact and symmetric at radial, DP, and PT Lungs: no acute respiratory distress; symmetrical chest wall expansion; clear breath sounds across all lung lake w/o adventitious sounds; no wheezing ABD: Firm; significant abdominal distention; tympany to percussion; BS present : Suprapubic catheter in place without signs of drainage or erythema MSK: no tics or fasciculations; no edema noted in the LEs b/l, nonerythematous Neuro: Lethargic and does not respond to questioning; does respond to some commands such as wiggle toes; sensation intact in the LEs b/l Principal Dx & Hospital Course #1 = Principal Diagnosis (1) Small bowel obstruction: - Presented with N/V x [address] A/P revealed high-grade SBO. NG tube placed in ER. - He has underlying neurogenic bowel and chronically has dilated loops of bowel on previous imaging. -- This likely was exacerbated by recent initiation of GLP-1 agonist as an outpatient. - On admission, no sepsis, lactate normal, leukocytosis likely 2/2 stress reaction, procalcitonin negative. - Blood cultures 06/12 with Staph epidermidis which is likely a skin contaminant, no need to repeat. - General surgery consulted-recommends continued medical management - Repeat CT abd/pel 10/15 ordered by Surgery shows improvement in obstruction, significantly dilated colon, with sigmoid narrowing-could be stricture. No mass. - Abdominal pain continues to improve and patient continues to pass gas and have multiple BMs. NG tube removed on 10/17/2023. - Diet advanced to low fiber 10/19/23. - Patient had multiple liquid bowel movements. -- C. diff ordered, uncollected as diarrhea resolved. Therefore, infectious etiology less likely. - CT with esophagitis-continue IV Pepcid twice daily (2) Diabetes mellitus, type 2: Last A1c at 8.2% on 09/29/2023 Held glimepiride, semaglutide while hospitalized. They were discontinued on discharge, and I recommend not resuming them given neurogenic bowel and history of bowel obstruction Patient is normally on Lantus 60u HS (3) UTI (urinary tract infection) due to urinary indwelling catheter: Chronic indwelling suprapubic catheter UA positive on arrival but is likely colonized Urine culture mixed jeffrey Discontinued Zosyn (4) Hypertension: - Resumed propanolol, losartan, statin, and Lasix 10/18/23 since patient is tolerating oral diet. - IV hydralazine PRN for SBP >180 (5) Paraplegia: Noted Supportive care (6) Cerebral palsy: Chronic, supportive care, bedbound Lives in custodial (7) Neuromuscular dysfunction of bladder: With suprapubic catheter in place Catheter care Plan CODE STATUS: DNR/DNI Discharge Exam General: No acute distress, nondiaphoretic, well-developed, well-nourished. Skin: The skin was without rashes, erythema, edema, or bruising. Cardiac: Regular rate and rhythm without murmurs gallops or rubs. Pulm: Clear to auscultation bilaterally without wheezes, rales or rhonchi. No retractions or accessory muscle use. Abdominal: Positive bowel sounds. Still some distention, improving. Soft, nontender, without masses or organomegaly. No guarding or rebound tenderness. Neuro: A&O x3. No focal neurological deficits. Updated Medication List Medication Instructions Recorded Confirmed Type blood-glucose meter (ZuvvuTouch #1 ea 11/05/18 02/19/23 History Verio Meter) cholecalciferol (vitamin D3) 25 3,000 units PO .@0830 11/05/18 10/14/23 History mcg (1,000 unit) tablet Wheelchair (Manual) #1 ea 04/01/19 02/19/23 Rx diaper,brief,adult,disposable #48 ea 06/30/19 02/19/23 Rx blood sugar diagnostic (OneTouch #100 ea 04/10/20 02/19/23 Rx Ultra Blue Test Strip) tramadol 50 mg tablet 50 mg PO .@0830, 2030 12/23/20 10/14/23 History insulin aspart U-100 100 unit/mL 1 sliding scale dose subcut 07/01/22 10/14/23 Rx subcutaneous solution (Novolog USEASDIRECTD DM #10 mL U-100 Insulin aspart) losartan 50 mg tablet 50 mg PO DAILY #30 tabs 07/01/22 10/14/23 Rx acetaminophen 325 mg capsule 650 mg PO Q8H PRN PAIN/FEVER 09/09/22 10/14/23 History (Tylenol) bisacodyl 10 mg rectal suppository 10 mg OR DAILY PRN Constipation 09/09/22 10/14/23 History (Dulcolax (bisacodyl)) magnesium hydroxide 400 mg/5 mL 30 ml PO UD PRN Constipation 09/09/22 10/14/23 History oral suspension (Milk of Magnesia) potassium chloride 20 mEq 40 meq PO .@8030,1630 09/09/22 10/14/23 History tablet,extended release insulin glargine 100 unit/mL (3 60 unit subcut HS 07/15/23 10/14/23 History mL) subcutaneous pen (Basaglar KwikPen U-100 Insulin) linaclotide 72 mcg capsule 72 mcg PO .NUNUMEGAN,ERIKJAG,SUN 07/15/23 10/14/23 History (Linzess) constipation propranolol 120 mg capsule,24 120 mg PO DAILY 07/15/23 10/14/23 History hr,extended release (Inderal LA) atorvastatin 20 mg tablet (Lipitor) 20 mg PO .@2030 10/06/23 10/14/23 History sodium phosphates 19 gram-7 118 ml OR UD PRN Constipation 10/06/23 10/14/23 History gram/118 mL enema (Fleet Enema) furosemide 40 mg tablet 40 mg PO .@0830 10/14/23 10/14/23 History promethazine 25 mg tablet 25 mg PO Q6H PRN n/v 10/14/23 10/14/23 History promethazine 25 mg/mL injection 25 mg IM Q6H PRN n/v 10/14/23 10/14/23 History solution sennosides 8.6 mg-docusate sodium 1 tab-cap PO .@0810/14/23 10/14/23 History 50 mg tablet (Senokot-S) Hospital Stay Data Consultations 10/14/23 13:27 ED Decision to Admit Stat 10/14/23 13:28 Consult General Surgery Routine Diagnostic Imagining Performed 10/14/23 08:57 CT Abd and Pelvis [CT abd pelvis IV con only] Stat 10/16/23 12:37 CT abd pelvis oral and IV con Routine Pending Results Patient Have Any Pending Studies at Discharge: No Discharge Instructions Given to Patient (Per Discharging Provider) FOR CENTRE CARE: Mr. Humphreys was admitted for concern of a small bowel obstruction. It is more likely that this was neurogenic bowel dysfunction, likely exacerbated by recent initiation of GLP-1 agonist. Patient has had complete return of his bowel function. He did experience multiple episodes of diarrhea, however, this has self resolvedmaking an infectious etiology less likely. He has been well tolerating oral intake. Upon discharge from the hospital: * Semaglutide and glimepiride have been discontinued. I would not recommend r esuming these given neurogenic bowel and history of bowel obstruction. * Closely monitor blood sugars to determine if an oral agent is needed to manage his diabetes. * Continue all other medications as prescribed. * Patient has been well tolerating a low fiber diet. I recommend continuing a low fiber diet for the next few days, then advance as tolerated. Thank you, Hansa Ross PA-C Total Time Total Time Spent Total Time Spent (In Minutes): Greater than 30 minutes spent completing this discharge process including direct patient care, medication reconciliation, documentation, review of labs and images, and coordination of care. Coding Level of Care Code 00002 INP/OBS DISCH >30 MIN Diagnoses Small bowel obstruction K56.609 Diabetes mellitus, type 2 E11.9 UTI (urinary tract infection) due to urinary indwelling catheter T83.511A; N39.0 Essential hypertension I10 Hypertension type: essential hypertension Paraplegia G82.20 Cerebral palsy G80.9 Neuromuscular dysfunction of bladder N31.9
[2023-10-21] MEDS ORDERED: LANTUS PER UNIT CHARGE SQ SCH (09:00)
== END 2023-10-20 15:10 | DRG 389 ==
LOC: ED 08:45 → EDINP 14:18 → SUATTDRO 14:18 → 4W 16:11 → 3W 10-16 21:35

== ENCOUNTER 2023-12-17 19:53 | Inpatient (IN) ==
[2023-12-17 20:29] LABS: Basophils # (auto) 0.06 K/uL (0.00-0.20); Basophils % (auto) 0.7 %; Eosinophils # (auto) 0.27 K/uL (0.00-0.50); Eosinophils % (auto) 3.1 %; Hematocrit (blood only) 42.1 % (42.0-52.0); Hemoglobin 14.3 g/dl (14.0-18.0); Immature Granulocytes # (auto) 0.01 K/uL (0.01-0.20); Immature Granulocytes % (auto) 0.1 %; Lymphocytes # (auto) 2.15 K/uL (1.20-3.40); Lymphocytes % (auto) 24.6 %; Mean Corpuscular Hemoglobin 30.8 pg (25.0-34.0); Mean Corpuscular Volume 90.7 fL (80.0-100.0); Neutrophils # (auto) 5.55 K/uL (1.40-6.50); Neutrophils % (auto) 63.5 %; Platelet Count 280 K/uL (130-400); RDW Coefficient of Variation 14.1 % (11.5-14.5); RDW Standard Deviation 46.8 fL (36.4-46.3); Red Blood Count 4.64 M/uL (4.70-6.10); White Blood Count 8.74 K/ul (4.8-10.8)
[2023-12-17 20:41] LABS: Albumin Globulin Ratio 1.3 (0.9-2); Albumin Level 4.3 gm/dl (3.4-5.0); BUN Creatinine Ratio 9.7 (10-20); Bilirubin,Total 1.1 mg/dl (0.2-1.0); Calcium 9.5 mg/dl (8.6-10.3); Creatinine Clr Calc Pharmacy 73.2 ml/min; Est GFR (African American) 84.9 ml/min; Est GFR (Non-African American) 73.3 ml/min; Globulin 3.2 gm/dl (2.5-4.0); Potassium 3.9 mmol/L (3.5-5.1); Total Protein 7.5 gm/dl (6.0-8.3)
--- NOTE | 2023-12-17 21:08 | Emergency Department Note ---
Impression & Plan Large bowel obstruction, Abdominal distension ED Provider Note NAME: MARCELLUS KIRKPATRICK AGE: 68 SEX: Male INFORMANT: Patient ED PROVIDER(S): Dylan Mcgraw MD CHIEF COMPLAINT: Abdominal distention PLAN: Disposition: Admitted Outpatient prescription management: none Referral: None MEDICAL DECISION MAKING: Patient present because of abdominal distention. He had tympanitic abdominal examination and high-pitched bowel sounds. IV was established. Patient was sent for CT imaging. He denied any pain. CT imaging showed marked distention of the colon with possible transitional point near the sigmoid. Consulted with Dr. Perry of general surgery. He did evaluate the scan. Given the fact the patient has no fever, leukocytosis or abdominal pain he felt that a GI consultation was reasonable. Discussed the case with Dr. Mora of gastroenterology. Patient was recommended for n.p.o. tonight and evaluation for GI tomorrow. NG tube was recommended and this was placed. Patient was reassessed. He is doing well without any nausea or abdominal pain. Consultation was made with Dr. Brett Landaverde of the [facility] service. Patient had a large amount of flatus with the NG tube placement and had improvement of his distention. Patient was evaluated in the ER for further management. Care/management discussed with: Case management Level of care consideration(s): After review of the information above and other included data, I feel the patient is escalation of care to admission Triage Nursing notes: reviewed and agree them. Vital Signs: reviewed and remarkable for no significant abnormalities Additional History obtained from: none Chronic Medical/Social Conditions affecting care: CP Prior/ Outside/ External records reviewed: none Differential Diagnosis: Obstruction, volvulus, renal colic, UTI, appendicitis, diverticulitis, mesenteric ischemia, aortic pathology, infections, inflammatory bowel disease, PUD, biliary pathology, as well as other pathologies. Diagnostics, independently interpreted by me: ECG: Twelve-lead ECG rhythm was sinus rate 75 bpm. Inferior Q waves present. Cardiac Monitoring: Cardiac monitoring ordered by me: The patient was placed on continuous cardiac monitoring and observed. It revealed a normal sinus rhythm at 82 beats per minute without ectopy or evidence of dysrhythmia. Medical decision rules: none Imaging studies: CT imaging of the abdomen pelvis reveals marked distention of the large bowel with sigmoid transition point. Bowel diameter noted to be maximally at 14 cm. I refer you to the EMR for further details. KUB performed and reveals NG tube to be in good position. Bowel distention noted. HPI: 68 year old Male arrives for evaluation of abdominal tension. Patient resides at [facility]. They were concerned about possible obstruction as he has a history of the same. They noted his abdomen was more distended today. He did have some loose stools recently. They noted a negative COVID test. Patient is without complaints. Patient does have a history of indwelling catheter. Patient is diabetic. Pt denies LOC, headache, fevers, chills, chest pain, breathing difficulties, nausea, vomiting, abdominal pain, back pain, or other complaints. PAST MEDICAL HISTORY: See Below, CP, spina bifida. PAST SURGICAL HISTORY: See Below, SOCIAL HISTORY: See Below, disabled HOME MEDICATIONS: See Below ALLERGIES: See Below VITALS: See Below PHYSICAL EXAMINATION: GENERAL: Awake, alert, well-appearing, in no distress HENT: Normocephalic, atraumatic. Oropharynx unremarkable. EYES: Normal conjunctiva. Sclera non-icteric. NECK: Inspection normal. Non-tender. Supple. No nuchal rigidity. FROM. No masses. RESPIRATORY: Clear to auscultation. No wheezes. No rales. Normal respiratory effort. CARDIAC: Normal rate. Normal rhythm. No murmurs. No rubs. Extremities warm and well perfused. Pulses equal. No JVD. GI: Soft, significantly-distended. No tenderness to palpation. No rebound or guarding. No masses. High-pitched bowel sounds present. RECTAL: Deferred. MUSCULOSKELETAL: Atraumatic. Chest examination reveals no tenderness. The back is symmetrical on inspection without obvious abnormality. There is no CVA tenderness to palpation. No joint edema. LOWER EXTREMITIES: Calves are equal size bilaterally and non-tender. No edema. No discoloration. NEURO: Normal sensorium. No sensory or motor deficits noted. SKIN: No rash or jaundice noted. PROCEDURES: none CRITICAL CARE: none OBSERVATION NOTE: none Past Med/Surg History Problem List (Updated 12/18/23 @ 02:20 by Dylan Mcgraw MD) Large bowel obstruction (Acute) Abdominal distension (Acute) Carpal tunnel syndrome, right Cervical radicular pain Bladder calculus Obstructed suprapubic catheter Chronic constipation with overflow incontinence Diarrhea Diabetes mellitus, type 2 Neuromuscular dysfunction of bladder Cough Encounter for pre-operative examination Hypokalemia VIKY (acute kidney injury) Acute dehydration (Acute) Infected pressure ulcer (Acute) Acute renal failure (Acute) Leukocytosis (Acute) Generalized weakness (Acute) Acute anemia (Acute) Cellulitis of right leg Constipation Skin tear of elbow without complication (Acute) Abrasion of knee, bilateral (Acute) Diabetic ulcer of right foot (Acute) Diabetic ulcer of left foot (Acute) Foot pain, right Clubfoot of right lower extremity Wound of right foot Gross hematuria Urinary retention Indwelling Hernandez catheter present Traumatic wound Pressure injury of sacral region, stage 2 (Acute) Paraplegia (Chronic) Acute confusion (Acute) Tachycardia (Acute) Discharge planning issues DVT prophylaxis Dehydration (Acute) DNR (do not resuscitate) Metabolic encephalopathy (Acute) UTI (urinary tract infection) due to urinary indwelling catheter (Acute) Acute UTI (urinary tract infection) (Acute) Sepsis (Acute) Spina bifida (Chronic) Cerebral palsy (Chronic) History of macrocytic anemia Hypertension Hyponatremia Tachypnea Elevated serum creatinine Complicated UTI (urinary tract infection) Weakness Cellulitis of left leg (Acute) Spina bifida (Chronic) Macrocytic anemia Catheter-associated urinary tract infection (Acute) Abdominal distension (gaseous) (Chronic) Hyperlipidemia Anemia Diabetes (Chronic) UTI (urinary tract infection) (Acute) Cerebral palsy Sepsis associated hypotension (Acute) Cellulitis of left lower extremity (Acute) Balanitis (Acute) Altered mental status (Acute) Dehydration (Acute) HTN (hypertension) (Chronic) Medical History Spina bifida Paraplegia Esophagitis Abdominal distension History of cellulitis History of sepsis Balanitis History of tachycardia Right club foot Cerebral palsy Hypertension Type 2 diabetes mellitus History of small bowel obstruction Cognitive communication deficit Acute kidney failure, unspecified Muscle weakness (generalized) Enterocolitis due to Clostridium difficile, recurrent Hyperlipidemia Benign prostatic hyperplasia with lower urinary tract symptoms Hx: UTI (urinary tract infection) PVD (peripheral vascular disease) History of COVID-19 Anemia Unspecified intellectual disabilities intermediate resident Suprapubic catheter Heart disease Surgical History Presence of urogenital implants S/P cystoscopy History of colonoscopy History of esophagogastroduodenoscopy (EGD) Presence of cardiac and vascular implant and graft Family History Mother Peripheral vascular disease Other Cancer Diabetes Heart disease Hypertension Denies family history of Ovarian cancer Prostate cancer Myocardial infarction Breast cancer Colorectal cancer Social History Smoking Status: Former smoker Tobacco Type: Cigarettes Hx Alcohol Use: No Hx Substance Use: No Preferred Language: Bulgarian Communication Ability: Effective Visual Impairment: No Limitations Hearing Ability: Hard of Hearing [employer]ushing [employer] Operator Required: No Beliefs That Will Affect Care: None marital status: Single Current Living Situation: Long-Term Current Living Situation Comment: [facility] current occupational status: disabled Other Information That Helps Us Care for You: No Feels Safe at Home: Yes Safety Concerns: Feels Safe At This Time Diet: regular caffeine: Yes during the past year weight has: remained stable Dental Care, Regularly: No Physical Activity Frequency: Does not Exercise Seatbelt Use: never Assistive Devices: Denture - Upper, Denture - Lower and Hearing Aid - Bilateral Allergies Allergies Allergy/AdvReac Type Severity Reaction Status Date / Time lisinopril Allergy Unknown Unknown Verified 12/17/23 23:00 sulfamethoxazole AdvReac Unknown Nausea Verified 12/17/23 23:00 [From Bactrim] trimethoprim [From Bactrim] AdvReac Unknown Nausea Verified 12/17/23 23:00 Home Meds Home Medications Medication Instructions Recorded Confirmed blood-glucose meter (OneTouch #1 ea 11/05/18 02/19/23 Verio Meter) cholecalciferol (vitamin D3) 25 3,000 units PO DAILY 11/05/18 12/17/23 mcg (1,000 unit) tablet tramadol 50 mg tablet 50 mg PO AMHS 12/23/20 12/17/23 acetaminophen 325 mg capsule 650 mg PO Q6H PRN PAIN/FEVER 09/09/22 12/17/23 (Tylenol) potassium chloride 20 mEq 40 meq PO BID 09/09/22 12/17/23 tablet,extended release insulin glargine 100 unit/mL (3 60 unit subcut HS 07/15/23 12/17/23 mL) subcutaneous pen (Basaglar KwikPen U-100 Insulin) linaclotide 72 mcg capsule 72 mcg PO .TUMEGAN,NEDA,SUN 07/15/23 12/17/23 (Linzess) constipation propranolol 120 mg capsule,24 120 mg PO QAM 07/15/23 12/17/23 hr,extended release (Inderal LA) atorvastatin 20 mg tablet (Lipitor) 20 mg PO HS 10/06/23 12/17/23 furosemide 40 mg tablet 40 mg PO DAILY 10/14/23 12/17/23 sennosides 8.6 mg-docusate sodium 1 tab-cap PO QAM 10/14/23 12/17/23 50 mg tablet (Senokot-S) pantoprazole 40 mg tablet,delayed 40 mg PO AMHS 11/10/23 12/17/23 release (Protonix) Previous Rx's Medication Instructions Recorded Wheelchair (Manual) #1 ea 04/01/19 diaper,brief,adult,disposable #48 ea 06/30/19 blood sugar diagnostic (OneTouch #100 ea 04/10/20 Ultra Blue Test Strip) losartan 50 mg tablet 50 mg PO DAILY #30 tabs 07/01/22 Results & Data (ED) Vital Signs Vital Signs - 24 hr 12/17/23 20:00 12/17/23 20:00 12/17/23 20:00 Temperature 36.8 C Temperature Source Oral Pulse Rate 76 Respiratory Rate 18 16 Respiratory Effort / Characteristics Non-Labored Non-Labored Respiratory Depth Normal Normal Blood Pressure 132/93 Blood Pressure Mean 106 Pulse Oximetry 95 95 Oxygen Delivery Method Room Air Room Air Room Air Sepsis Recent Fever Within 48 Hours No Sepsis New/Unexplained Change in Mental Status No Sepsis Action Taken by Nursing No Action Required 12/17/23 20:05 12/18/23 00:09 Temperature Temperature Source Pulse Rate 78 82 Respiratory Rate Respiratory Effort / Characteristics Respiratory Depth Blood Pressure Blood Pressure Mean Pulse Oximetry Oxygen Delivery Method Sepsis Recent Fever Within 48 Hours Sepsis New/Unexplained Change in Mental Status Sepsis Action Taken by Nursing Laboratory Data 12/17/23 20:09 12/17/23 20:09 Lab Results 12/17/23 Range/Units 20:09 WBC 8.74 (4.8-10.8) K/ul RBC 4.64 L (4.70-6.10) M/uL Hgb 14.3 (14.0-18.0) g/dl Hct 42.1 (42.0-52.0) % MCV 90.7 (80.0-100.0) fL MCH 30.8 (25.0-34.0) pg MCHC 34.0 (32.0-36.0) g/dL RDW Std Deviation 46.8 H (36.4-46.3) fL RDW Coeff of Renée 14.1 (11.5-14.5) % Plt Count 280 (130-400) K/uL MPV 9.0 L (9.4-12.4) fL Immature Gran % (Auto) 0.1 % Neut % (Auto) 63.5 % Lymph % (Auto) 24.6 % Pickett % (Auto) 8.0 % Eos % (Auto) 3.1 % Baso % (Auto) 0.7 % Neut # (Auto) 5.55 (1.40-6.50) K/uL Lymph # (Auto) 2.15 (1.20-3.40) K/uL Pickett # (Auto) 0.70 H (0.11-0.59) K/uL Eos # (Auto) 0.27 (0.00-0.50) K/uL Baso # (Auto) 0.06 (0.00-0.20) K/uL Immature Gran # (Auto) 0.01 (0.01-0.20) K/uL Sodium 134 L (136-145) mmol/L Potassium 3.9 (3.5-5.1) mmol/L Chloride 100 (98-107) mmol/L Carbon Dioxide 26 (21-32) mmol/L Anion Gap 8 (3-11) BUN 10 (6-23) mg/dl Creatinine 1.03 (0.6-1.4) mg/dl Est Cr Clr Drug Dosing 73.2 ml/min Est GFR ( Amer) 84.9 ml/min Est GFR (Non-Af Amer) 73.3 ml/min BUN/Creatinine Ratio 9.7 L (10-20) Glucose 192 H (70-99(Fasting)) mg/dl Calcium 9.5 (8.6-10.3) mg/dl Total Bilirubin 1.1 H (0.2-1.0) mg/dl AST 29 (13-39) U/L ALT 25 (7-52) U/L Alkaline Phosphatase 150 H (34-104) U/L Total Protein 7.5 (6.0-8.3) gm/dl Albumin 4.3 (3.4-5.0) gm/dl Globulin 3.2 (2.5-4.0) gm/dl Albumin/Globulin Ratio 1.3 (0.9-2) Lipase 26 (11-82) U/L Imaging Data Radiologist's Impression: Abdomen/Pelvis CT 12/17/23 20:05 Exam(s): CT ABDOMEN + PELVIS Without Contrast EXAM: CT Abdomen and Pelvis Without Intravenous Contrast CLINICAL HISTORY: Reason for exam: eval for obstruction. TECHNIQUE: Axial computed tomography images of the abdomen and pelvis without intravenous contrast. CTDI is 24.59 mGy and DLP is 1391.53 mGy-cm. Automated exposure control was utilized for the study. A dose lowering technique was utilized adhering to the principles of ALARA. COMPARISON: 10/16/2023 FINDINGS: Lung bases: Unremarkable. No mass. No consolidation. ABDOMEN: Liver: Unremarkable. Gallbladder and bile ducts: Unremarkable. No calcified stones. No ductal dilation. Pancreas: Unremarkable. No ductal dilation. Spleen: Unremarkable. No splenomegaly. Adrenals: Unremarkable. No mass. Kidneys and ureters: Unremarkable. No obstructing stones. No hydronephrosis. Stomach and bowel: Unremarkable. No obstruction. No mucosal thickening. PELVIS: Appendix: No findings to suggest acute appendicitis. Bladder: Hernandez catheter within the nondistended urinary bladder. Despite this lack of distention there is circumferential wall thickening of the bladder suggesting cystitis. Stable bladder calcifications. No stones. Reproductive: Unremarkable as visualized. ABDOMEN and PELVIS: Intraperitoneal space: There is marked gaseous distention of the colon with a transition between dilated and nondilated: Left lower quadrant. This appears centered upon a very short segment of wall thickening involving the sigmoid colon best appreciated on axial image 63 series 2. No free air identified on this study. Bones/joints: No acute fracture. No dislocation. Soft tissues: Unremarkable. Vasculature: Unremarkable. No abdominal aortic aneurysm. Lymph nodes: Unremarkable. No enlarged lymph nodes. IMPRESSION: 1. Marked gaseous distention of the colon with a transition noted in the left lower quadrant centered on a focal area of wall thickening involving the sigmoid colon. Underlying mass cannot be entirely excluded. Direct inspection is recommended for further evaluation. . 2. Cystitis 3. Bladder calculi present. Electronically signed by: Yosef Jusitce MD 12/17/23 21:44 PM Discharge Plan Visit Data Chief Complaint: Abdominal Pain Stated Complaint: Abdominal Pain ED Provider: Dylan Mcgraw Discharge Problem: Large bowel obstruction, Abdominal distension Discharge Instructions Interventions: ED Discharge Assessment Last Done: 12/18/23 01:10
--- NOTE | 2023-12-17 21:45 | CT Scan Report ---
Exam(s): CT ABDOMEN + PELVIS Without Contrast EXAM: CT Abdomen and Pelvis Without Intravenous Contrast CLINICAL HISTORY: Reason for exam: eval for obstruction. TECHNIQUE: Axial computed tomography images of the abdomen and pelvis without intravenous contrast. CTDI is 24.59 mGy and DLP is 1391.53 mGy-cm. Automated exposure control was utilized for the study. A dose lowering technique was utilized adhering to the principles of ALARA. COMPARISON: 10/16/2023 FINDINGS: Lung bases: Unremarkable. No mass. No consolidation. ABDOMEN: Liver: Unremarkable. Gallbladder and bile ducts: Unremarkable. No calcified stones. No ductal dilation. Pancreas: Unremarkable. No ductal dilation. Spleen: Unremarkable. No splenomegaly. Adrenals: Unremarkable. No mass. Kidneys and ureters: Unremarkable. No obstructing stones. No hydronephrosis. Stomach and bowel: Unremarkable. No obstruction. No mucosal thickening. PELVIS: Appendix: No findings to suggest acute appendicitis. Bladder: Hernandez catheter within the nondistended urinary bladder. Despite this lack of distention there is circumferential wall thickening of the bladder suggesting cystitis. Stable bladder calcifications. No stones. Reproductive: Unremarkable as visualized. ABDOMEN and PELVIS: Intraperitoneal space: There is marked gaseous distention of the colon with a transition between dilated and nondilated: Left lower quadrant. This appears centered upon a very short segment of wall thickening involving the sigmoid colon best appreciated on axial image 63 series 2. No free air identified on this study. Bones/joints: No acute fracture. No dislocation. Soft tissues: Unremarkable. Vasculature: Unremarkable. No abdominal aortic aneurysm. Lymph nodes: Unremarkable. No enlarged lymph nodes. IMPRESSION: 1. Marked gaseous distention of the colon with a transition noted in the left lower quadrant centered on a focal area of wall thickening involving the sigmoid colon. Underlying mass cannot be entirely excluded. Direct inspection is recommended for further evaluation. . 2. Cystitis 3. Bladder calculi present. Electronically signed by: Yosef Justice MD 12/17/23 21:44 PM
--- NOTE | 2023-12-17 23:04 | History & Physical Report ---
Date of Service December 17, 2023 Assessment & Plan (1) Abdominal distension: (2) Chronic constipation with overflow incontinence: (3) Diabetes mellitus, type 2: (4) Diabetic ulcer of right foot: (5) Diabetic ulcer of left foot: (6) Indwelling Hernandez catheter present: (7) Paraplegia: Plan Patient is a 68 yo M w/ a PMHx of CP, paraplegia, spina bifida, T2DM, diabetic ulcers of the feet b/l, chronic diarrhea/chronic constipation w/ overflow incontinence, sacral pressure ulcer, HTN, hyponatremia, elevated serum creatinine who presents to the [facility] ED due to increased abdominal distention associated w/ increased episodes of diarrhea since December 13. 1) Abdominal distention/ colonic distention - patient NPO, consult w/ Gastroenterology placed, consult w/ Gen Surg placed - CT-AP noted focal wall thickening of sigmoid colon w/ evidence of transition point in LLQ (see above) - decompression tube placed 2) Diabetic foot ulcers - last Duplex ultrasound on 12/27/20 - repeat Duplex ultrasound ordered due to presence of poorly healing foot ulcers - wound care consult, nurse placed 3) Chronic diarrhea/chronic constipation w/ overflow incontinence - patient on Linzess, hold for now - Senna-docusate hold for now 4) HTN - continue propanolol, ER, 120 mg, QAM - hold losartan, hold KCl supplementation 5) T2DM - 30 U glargine, carb ratio 10, CF 20, 110-160 goal range for blood sugar - patient NPO, hold diet 6) HLD - hold atorvastatin for now 7) insomnia -hold tramadol for now Code status: DNR/DNI Disposition: Med Surg-Tele DVT Prophylaxis: SCDs FENGI: NPO History of Present Illness Chief Complaint: abdominal distention (associated loose stools, Hx of bowel obstruction) Primary Care Provider: [facility] Patient is a 68 yo M w/ a PMHx of CP, paraplegia, spina bifida, T2DM, diabetic ulcers of the feet b/l, chronic diarrhea/chronic constipation w/ overflow incontinence, sacral pressure ulcer, HTN, hyponatremia, elevated serum creatinine who presents to the [facility] ED due to increased abdominal distention associated w/ increased episodes of diarrhea since December 13. Patient specifically denies AP, N/V as well as no CP or palpitations, no SOB or chest congestion. He does endorse acute on chronic diarrhea (acute of 4 days), acute worsening abdominal distention, and a chronic dry cough of ~ 1 year. Allergies Allergy/AdvReac Type Severity Reaction Status Date / Time lisinopril Allergy Unknown Unknown Verified 12/17/23 23:00 sulfamethoxazole AdvReac Unknown Nausea Verified 12/17/23 23:00 [From Bactrim] trimethoprim [From Bactrim] AdvReac Unknown Nausea Verified 12/17/23 23:00 Home Medications Medication Instructions Recorded Confirmed Type blood-glucose meter (OneTouch #1 ea 11/05/18 02/19/23 History Verio Meter) cholecalciferol (vitamin D3) 25 3,000 units PO DAILY 11/05/18 12/17/23 History mcg (1,000 unit) tablet Wheelchair (Manual) #1 ea 04/01/19 02/19/23 Rx diaper,brief,adult,disposable #48 ea 06/30/19 02/19/23 Rx blood sugar diagnostic (OneTouch #100 ea 04/10/20 02/19/23 Rx Ultra Blue Test Strip) tramadol 50 mg tablet 50 mg PO AMHS 12/23/20 12/17/23 History losartan 50 mg tablet 50 mg PO DAILY #30 tabs 07/01/22 12/17/23 Rx acetaminophen 325 mg capsule 650 mg PO Q6H PRN PAIN/FEVER 09/09/22 12/17/23 History (Tylenol) potassium chloride 20 mEq 40 meq PO BID 09/09/22 12/17/23 History tablet,extended release insulin glargine 100 unit/mL (3 60 unit subcut HS 07/15/23 12/17/23 History mL) subcutaneous pen (Basaglar KwikPen U-100 Insulin) linaclotide 72 mcg capsule 72 mcg PO .TUES,THURS,SUN 07/15/23 12/17/23 History (Linzess) constipation propranolol 120 mg capsule,24 120 mg PO QAM 07/15/23 12/17/23 History hr,extended release (Inderal LA) atorvastatin 20 mg tablet (Lipitor) 20 mg PO HS 10/06/23 12/17/23 History furosemide 40 mg tablet 40 mg PO DAILY 10/14/23 12/17/23 History sennosides 8.6 mg-docusate sodium 1 tab-cap PO QAM 10/14/23 12/17/23 History 50 mg tablet (Senokot-S) pantoprazole 40 mg tablet,delayed 40 mg PO AMHS 11/10/23 12/17/23 History release (Protonix) Past Med/Surg History Problem List (Updated 12/18/23 @ 02:20 by Dylan Mcgraw MD) Large bowel obstruction (Acute) Abdominal distension (Acute) Carpal tunnel syndrome, right Cervical radicular pain Bladder calculus Obstructed suprapubic catheter Chronic constipation with overflow incontinence Diarrhea Diabetes mellitus, type 2 Neuromuscular dysfunction of bladder Cough Encounter for pre-operative examination Hypokalemia VIKY (acute kidney injury) Acute dehydration (Acute) Infected pressure ulcer (Acute) Acute renal failure (Acute) Leukocytosis (Acute) Generalized weakness (Acute) Acute anemia (Acute) Cellulitis of right leg Constipation Skin tear of elbow without complication (Acute) Abrasion of knee, bilateral (Acute) Diabetic ulcer of right foot (Acute) Diabetic ulcer of left foot (Acute) Foot pain, right Clubfoot of right lower extremity Wound of right foot Gross hematuria Urinary retention Indwelling Hernandez catheter present Traumatic wound Pressure injury of sacral region, stage 2 (Acute) Paraplegia (Chronic) Acute confusion (Acute) Tachycardia (Acute) Discharge planning issues DVT prophylaxis Dehydration (Acute) DNR (do not resuscitate) Metabolic encephalopathy (Acute) UTI (urinary tract infection) due to urinary indwelling catheter (Acute) Acute UTI (urinary tract infection) (Acute) Sepsis (Acute) Spina bifida (Chronic) Cerebral palsy (Chronic) History of macrocytic anemia Hypertension Hyponatremia Tachypnea Elevated serum creatinine Complicated UTI (urinary tract infection) Weakness Cellulitis of left leg (Acute) Spina bifida (Chronic) Macrocytic anemia Catheter-associated urinary tract infection (Acute) Abdominal distension (gaseous) (Chronic) Hyperlipidemia Anemia Diabetes (Chronic) UTI (urinary tract infection) (Acute) Cerebral palsy Sepsis associated hypotension (Acute) Cellulitis of left lower extremity (Acute) Balanitis (Acute) Altered mental status (Acute) Dehydration (Acute) HTN (hypertension) (Chronic) Medical History Spina bifida Paraplegia Esophagitis Abdominal distension History of cellulitis History of sepsis Balanitis History of tachycardia Right club foot Cerebral palsy Hypertension Type 2 diabetes mellitus History of small bowel obstruction Cognitive communication deficit Acute kidney failure, unspecified Muscle weakness (generalized) Enterocolitis due to Clostridium difficile, recurrent Hyperlipidemia Benign prostatic hyperplasia with lower urinary tract symptoms Hx: UTI (urinary tract infection) PVD (peripheral vascular disease) History of COVID-19 Anemia Unspecified intellectual disabilities group home resident Suprapubic catheter Heart disease Surgical History Presence of urogenital implants S/P cystoscopy History of colonoscopy History of esophagogastroduodenoscopy (EGD) Presence of cardiac and vascular implant and graft Family History Mother Peripheral vascular disease Other Cancer Diabetes Heart disease Hypertension Denies family history of Ovarian cancer Prostate cancer Myocardial infarction Breast cancer Colorectal cancer Social History Smoking Status: Former smoker Tobacco Type: Cigarettes Hx Alcohol Use: No Hx Substance Use: No Preferred Language: Kiswahili Communication Ability: Effective Visual Impairment: No Limitations Hearing Ability: Hard of Hearing Digital Proofing And Platemaker Required: No Beliefs That Will Affect Care: None marital status: Single Current Living Situation: [facility] Current Living Situation Comment: [facility] current occupational status: disabled Other Information That Helps Us Care for You: No Feels Safe at Home: Yes Safety Concerns: Feels Safe At This Time Diet: regular caffeine: Yes during the past year weight has: remained stable Dental Care, Regularly: No Physical Activity Frequency: Does not Exercise Seatbelt Use: never Assistive Devices: Denture - Upper, Denture - Lower and Hearing Aid - Bilateral Review of Systems Constitutional: + fatigue; no fever, no chills, no body aches and no weakness Respiratory: + cough (dry cough, year Hx of dry cough ); no chest congestion and no dyspnea Cardiovascular: no chest pain and no palpitations Gastrointestinal: + bloating and + diarrhea/loose stools; no abdominal pain, no nausea, no vomiting and no blood in stools patient has had 2 episodes of diarrhea today Genitourinary: no dysuria or no urinary frequency Neurologic: no tingling, no numbness, no dizziness and no headache(s) Physical Exam Constitutional: WD/WN, vitals as above Respiratory: normal respiratory effort, lungs clear to auscultation Cardiovascular: RRR, no murmur, no edema Extremities: normal capillary refill Gastrointestinal (Abdomen): Percussion/Palpation: + abdomen rigid, + tympanic to percussion and + abdomen firm; abdomen nontender Skin: + ulcer (healing ulcers b/l on toes of b oth feet) Neurologic: + focal motor deficit and awake; + abnor mal touch/pain/proprioception (decreased pain perception b/l up to knees, light tough nml) and + does not move all extremities Speech / Cognition: + abnormal speech (dysarthric speech) Motor/Sensory: + abnormal movement Psychiatric: A+Ox3, euthymic affect Results & Data Results & Data Vital Signs (Past 12 Hours) Vital Signs Temp Pulse Resp BP Pulse Ox O2 Del Method 12/17/23 20:05 78 12/17/23 20:00 Room Air 12/17/23 20:00 16 95 Room Air 12/17/23 20:00 36.8 C 76 18 132/93 95 Room Air Diagnostic Findings Abdomen/Pelvis CT 12/17/23 20:05 Exam(s): CT ABDOMEN + PELVIS Without Contrast EXAM: CT Abdomen and Pelvis Without Intravenous Contrast CLINICAL HISTORY: Reason for exam: eval for obstruction. TECHNIQUE: Axial computed tomography images of the abdomen and pelvis without intravenous contrast. CTDI is 24.59 mGy and DLP is 1391.53 mGy-cm. Automated exposure control was utilized for the study. A dose lowering technique was utilized adhering to the principles of ALARA. COMPARISON: 10/16/2023 FINDINGS: Lung bases: Unremarkable. No mass. No consolidation. ABDOMEN: Liver: Unremarkable. Gallbladder and bile ducts: Unremarkable. No calcified stones. No ductal dilation. Pancreas: Unremarkable. No ductal dilation. Spleen: Unremarkable. No splenomegaly. Adrenals: Unremarkable. No mass. Kidneys and ureters: Unremarkable. No obstructing stones. No hydronephrosis. Stomach and bowel: Unremarkable. No obstruction. No mucosal thickening. PELVIS: Appendix: No findings to suggest acute appendicitis. Bladder: Hernandez catheter within the nondistended urinary bladder. Despite this lack of distention there is circumferential wall thickening of the bladder suggesting cystitis. Stable bladder calcifications. No stones. Reproductive: Unremarkable as visualized. ABDOMEN and PELVIS: Intraperitoneal space: There is marked gaseous distention of the colon with a transition between dilated and nondilated: Left lower quadrant. This appears centered upon a very short segment of wall thickening involving the sigmoid colon best appreciated on axial image 63 series 2. No free air identified on this study. Bones/joints: No acute fracture. No dislocation. Soft tissues: Unremarkable. Vasculature: Unremarkable. No abdominal aortic aneurysm. Lymph nodes: Unremarkable. No enlarged lymph nodes. IMPRESSION: 1. Marked gaseous distention of the colon with a transition noted in the left lower quadrant centered on a focal area of wall thickening involving the sigmoid colon. Underlying mass cannot be entirely excluded. Direct inspection is recommended for further evaluation. . 2. Cystitis 3. Bladder calculi present. Electronically signed by: Yosef Justice MD 12/17/23 21:44 PM Supervising Physician Co-Signing Physician Notes Attending addendum: I have physically seen this patient, have supervised the medical residents activities, and agree with the H&P unless as otherwise noted. Assessment and Plan: Abdominal distention/focal sigmoid colon wall thickening/history of small bowel obstruction- Most recent admission to [facility] from 10/13-10/20/2023 for SBO, treated conservatively with NGT/LIS and supportive therapy CT scan abdomen pelvis reveals transition point left lower quadrant, with focal sigmoid colon wall thickening General surgery and GI consult by the ED in the ED, suggested medical admission and evaluation by gastroenterology in the a.m. for possible procedure Continue NGT/LIS that was placed in the ED While in the emergency department, the patient was rolled on his side, he had a very large bowel movement, had a large passage of flatus, and then had decrease in abdominal distention and improved comfort NPO except essential medications LR at 80 mL/h x 2 L Hold Linzess and docusate Change pantoprazole to IV Consult gastroenterology Consult general surgery Diabetic foot ulcers- Healing and do not look infected Lower extremity arterial Dopplers were normal on 12/27/2020, will repeat this evening Consult wound care Patient does spend most of his time in a wheelchair that is power driven, with his feet up on supports Diabetes mellitus- Basaglar 60 units at bedtime nonformulary Change to glargine 30 units subcu at bedtime, and place on NovoLog SSI until able to eat again Hypertension- Continue propranolol ER 120 mg in the morning Hold losartan, furosemide and potassium chloride
[2023-12-18] MEDS ORDERED: DIAPER BRIEF ADULT DISPOSABLE SCH (01:09)
[2023-12-18] MEDS ORDERED: NON-FORMULARY MEDICATION (Wheelchair (Manual) device) SCH (01:09)
[2023-12-18] MEDS ORDERED: GLUCAGON FOR INJ 1 MG VIAL SQ PRN (01:09)
[2023-12-18] MEDS ORDERED: CARBOHYDRATES FOR HYPOGLYCEMIA PO PRN (01:09)
[2023-12-18] MEDS ORDERED: GLUCOSE 10 TAB/TUBE PO PRN (01:09)
[2023-12-18] MEDS ORDERED: GLUCOSE 40% GEL 15 GM TUBE PO PRN (01:09)
--- NOTE | 2023-12-18 04:13 | Billing Data ---
Date of Service December 18, 2023 Coding Level of Care Code 50763 INT INP/OBS CARE
[2023-12-18] MEDS: LACTATED RINGER'S 1,000 ML IV SCH (04:34)
[2023-12-18] MEDS: INSULIN ASPART PER UNIT CHARGE SC SCH (06:16)
--- NOTE | 2023-12-18 07:04 | Hospitalist Progress Note ---
Date of Service December 18, 2023 Assessment & Plan (1) Abdominal distension: Plan: Patient is a 68 yo M w/ a PMHx of CP, paraplegia, spina bifida, T2DM, diabetic ulcers of the feet b/l, chronic diarrhea/chronic constipation w/ overflow incontinence, sacral pressure ulcer, HTN, hyponatremia, VIKY with CKD3, who presents to the [facility] ED due to increased abdominal distention associated w/ increased episodes of diarrhea since December 13. previous admission for SBO, history of neurogenic bowel, resolved with conservative care 10/30 presents with concern for bowel obstruction and possible mass seen on CT in colon history of constipation and overflow diarrhea, prehospital on Linzess and senna- docusate both on hold patient NPO, consult w/ Gastroenterology placed, consult w/ Gen Surg placed, most recent colonoscopy 09/17/22 with poor prep unable to have complete visualization rectal tube placed currently not on antibiotics (2) Diabetes mellitus, type 2: Plan: -glargine reduced from 30 to 10, carb ratio 10, CF 20, 110-160 goal range for blood sugar - patient NPO, hold diet Has diabetic ulcer of both feet poa has had chronic issues with non healing ulcers arterial Doppler performed as cool left foot with delayed cap refill, doppler No arterial occlusion or evidence of high-grade stenosis. currently not on antibiotics wound care consult (3) Paraplegia: Plan: History of Cerebal palsy and spina bifida, typically cared for in SNF, Neuromuscular dysfunction of bladder with chronic supropubic cath without issue of infection, presents with chronic sacral wound Plan Chronic problems HTN - continue propranolol, ER, 120 mg, - hold losartan, hold KCl supplementation HLD - hold atorvastatin for now insomnia -hold tramadol for now Code status: DNR/DNI DVT Prophylaxis: heparin sc if no procedures are planned Admission and Anticipated Discharge Date Admission Date: December 18, 2023 Subjective pt is pleasant but in minor distress, very distended stomach family is at bedside and updated Physical Exam Physical Exam: awake and alert hyperactive bowel sounds, distended and tympanitic, minor tender ext with cool lle, delay cap refill, some healing ulcers Results & Data Results & Data Vital Signs (Past 12 Hours) Vital Signs Temp Pulse Pulse Resp BP BP Pulse Ox 12/18/23 06:18 81 16 138/88 97 12/18/23 03:23 80 18 116/84 97 12/18/23 01:40 12/18/23 01:09 96 12/18/23 00:09 82 12/17/23 20:05 78 12/17/23 20:00 12/17/23 20:00 16 95 12/17/23 20:00 98.3 F 76 18 132/93 95 O2 Del Method O2 Flow Rate 12/18/23 06:18 Nasal Cannula 2 12/18/23 03:23 Room Air 12/18/23 01:40 Room Air 12/18/23 01:09 Room Air 12/18/23 00:09 12/17/23 20:05 12/17/23 20:00 Room Air 12/17/23 20:00 Room Air 12/17/23 20:00 Room Air Laboratory Results review cbc review chemistry PG Care Time/CCT Total # of Minutes Spent Total Time Spent with Patient: Total time spent is greater than 50% in coordination of care (as documented) at patient's floor/unit and/or counseling patient: Coding Level of Care Code 57699 SUB INP/OBS CARE 3/50MIN Diagnoses Abdominal distension R14.0 Diabetes mellitus, type 2 E11.9 Paraplegia G82.20
--- NOTE | 2023-12-18 07:09 | Ultrasound Report ---
US arterial duplex LE BI HISTORY: 68 years-old Male non healing ulcers, suspicion for PAD peripheral arterial disease COMPARISON: 12/27/2020 TECHNIQUE: Multiple real-time sonographic images of the lower extremity arterial structures were obta ined assessing grayscale appearance, color and spectral flow FINDINGS: No high-grade stenosis or arterial occlusion identified within either lower extremity. Atherosclerosi s is noted with mostly triphasic waveforms bilaterally. IMPRESSION: No arterial occlusion or evidence of high-grade stenosis. ACT 112: Negative or not required by law. The above report was generated using voice recognition software. It may contain grammatical, syntax o r spelling errors. Electronically signed by: Primo Roland M.D. 12/18/2023 7:08 AM
--- NOTE | 2023-12-18 07:22 | XRay Report ---
KUB CLINICAL HISTORY: Enteric tube placement. FINDINGS: AP, portable, upright view of the lower chest and upper abdomen is compared to study dated 10/17/2023 and correlated with abdominal CT dated 12/17/2023. An enteric tube has been placed. The tip projects below the diaphragm over the proximal stomach. Marked gaseous distention of the colon persis ts. No evidence of intraperitoneal free air is seen below the diaphragm. Gallstones are seen in the r ight upper quadrant. There are low lung volumes with bibasilar atelectasis. The skeletal structures a re osteopenic and appear intact. Spondylotic change is noted in the spine. IMPRESSION: 1. An enteric tube has been placed as above. 2. Again seen is marked gaseous distention of the colon. This is similar to prior examinations, and w hen correlated with yesterday's CT scan could represent a colonic ileus or less likely sigmoid volvul us or distal colonic stricture/obstruction. Electronically signed by: Dick Castro M.D. 12/18/2023 7:21 AM
[2023-12-18 07:34] LABS: BUN Creatinine Ratio 10.3 (10-20); Calcium 8.8 mg/dl (8.6-10.3); Creatinine Clr Calc Pharmacy 96.7 ml/min; Est GFR (Non-African American) 91.5 ml/min; Potassium 3.4 mmol/L (3.5-5.1)
[2023-12-18] MEDS: PROPRANOLOL HCL 60 MG LA CAP PO SCH (07:58)
--- NOTE | 2023-12-18 08:23 | Surgery Consultation ---
Date of Consultation December 18, 2023 Assessment & Plan (1) Large bowel obstruction: This is a 68y M with a PMH of spina bifida, cerebral palsy, HTN, HLD, DM2, who presents to the [facility] ED on on 12/17/23 with complaints of abdominal distention over the last several days. This is not associated with any abdominal pain, nausea/vomiting. Workup in the ER with a CT a/p showed marked gaseous distention of the colon with a transition noted in the left lower quadrant centered on a focal area of wall thickening involving the sigmoid colon. Underlying mass cannot be entirely excluded. Patient denies any past surgical history on the abdomen. Of note he was here back in october with concern for SBO managed conservatively. Patient said he had a colonoscopy years ago, but probably less than 10 years ago. In the chart he had an aborted colonoscopy in 2022 due to poor prep and suspected overflow diarrhea. Patient's blood work shows WBC 11, hbg 14, K 3.4 (will need repleted), Cr 0.7. Vitals are stable, on 2 L ox. He has an NGT in place. On exam abdomen is soft and non tender but is distended. He may have a component of neurogenic bowel causing ileus. Given findings on CT scan for large bowel distention with ? of strictures vs underlying mass/obstruction we would recommend a GI consultation for consideration of endoscopy vs. placement of rectal tube for decompression in the interim. We will follow, but there are no plans for surgical intervention indicated at this time. (2) Abdominal distension: History of Present Illness Attending Physician: Juan Jefferson MD History of Present Illness This is a 68y M with a PMH of spina bifida, cerebral palsy, HTN, HLD, DM2, who presents to the [facility] ED on on 12/17/23 with complaints of abdominal distention. Patient states he developed worsening abdominal bloating over the last couple of days. This was not associated with any abdominal pain, nausea/vomiting. He reports he has been tolerating food and having + flatus and loose stools. Due to his bloating he came into the ER and workup with a CT a/p showed marked gaseous distention of the colon with a transition noted in the left lower quadrant centered on a focal area of wall thickening involving the sigmoid colon. Underlying mass cannot be entirely excluded. Patient denies any past surgical history on the abdomen. Of note he was here back in october with concern for SBO managed conservatively. Patient said he had a colonoscopy years ago, but probably less than 10 years ago. In the chart he had an aborted colonoscopy in 2022 due to poor prep and suspected overflow diarrhea. He denies CP/SOB, fevers/chills, n.v Allergies Allergy/AdvReac Type Severity Reaction Status Date / Time lisinopril Allergy Unknown Unknown Verified 12/17/23 23:00 sulfamethoxazole AdvReac Unknown Nausea Verified 12/17/23 23:00 [From Bactrim] trimethoprim [From Bactrim] AdvReac Unknown Nausea Verified 12/17/23 23:00 Home Medications Medication Instructions Recorded Confirmed Type blood-glucose meter (OneTouch #1 ea 11/05/18 02/19/23 History Verio Meter) cholecalciferol (vitamin D3) 25 3,000 units PO DAILY 11/05/18 12/17/23 History mcg (1,000 unit) tablet Wheelchair (Manual) #1 ea 04/01/19 02/19/23 Rx diaper,brief,adult,disposable #48 ea 06/30/19 02/19/23 Rx blood sugar diagnostic (OneTouch #100 ea 04/10/20 02/19/23 Rx Ultra Blue Test Strip) tramadol 50 mg tablet 50 mg PO AMHS 12/23/20 12/17/23 History losartan 50 mg tablet 50 mg PO DAILY #30 tabs 07/01/22 12/17/23 Rx acetaminophen 325 mg capsule 650 mg PO Q6H PRN PAIN/FEVER 09/09/22 12/17/23 History (Tylenol) potassium chloride 20 mEq 40 meq PO BID 09/09/22 12/17/23 History tablet,extended release insulin glargine 100 unit/mL (3 60 unit subcut HS 07/15/23 12/17/23 History mL) subcutaneous pen (Basaglar KwikPen U-100 Insulin) linaclotide 72 mcg capsule 72 mcg PO .TUES,THURS,SUN 07/15/23 12/17/23 History (Linzess) constipation propranolol 120 mg capsule,24 120 mg PO QAM 07/15/23 12/17/23 History hr,extended release (Inderal LA) atorvastatin 20 mg tablet (Lipitor) 20 mg PO HS 04/29/24 07/10/24 History furosemide 40 mg tablet 40 mg PO DAILY 10/14/23 12/17/23 History sennosides 8.6 mg-docusate sodium 1 tab-cap PO QAM 10/14/23 12/17/23 History 50 mg tablet (Senokot-S) pantoprazole 40 mg tablet,delayed 40 mg PO AMHS 11/10/23 12/17/23 History release (Protonix) Patient History Medical History Spina bifida Paraplegia Esophagitis Abdominal distension hx chronic intermittent abdominal distention History of cellulitis hx left lower extremity/recurrent cellulitis. History of sepsis Balanitis History of tachycardia Right club foot Cerebral palsy Hypertension Type 2 diabetes mellitus History of small bowel obstruction 10/2023 Cognitive communication deficit Acute kidney failure, unspecified Muscle weakness (generalized) Enterocolitis due to Clostridium difficile, recurrent onset 10/2021 Hyperlipidemia Benign prostatic hyperplasia with lower urinary tract symptoms Hx: UTI (urinary tract infection) complicated uti noted on faxed info. PVD (peripheral vascular disease) did not observe on faxed info. History of COVID-19 07/2022 Anemia hx macrocytic anemia Unspecified intellectual disabilities [facility] resident Suprapubic catheter Heart disease Per [facility] records Patient's sister (HIPAA contact) denies Surgical History Presence of urogenital implants S/P cystoscopy cystolithopaxy w/ replacement suprapubic cath History of colonoscopy History of esophagogastroduodenoscopy (EGD) Presence of cardiac and vascular implant and graft Noted in [facility] records with the associated date 2015, [facility] at that [facility]- no evidence of cardiac or vascular implant/graft noted at that time- no further details per available [facility] records Patient's sister (Maribeth, HIPAA contact) denies Family History Mother Peripheral vascular disease Other Cancer Diabetes Heart disease Hypertension Denies family history of Ovarian cancer Prostate cancer Myocardial infarction Breast cancer Colorectal cancer Social History Smoking Status: Former smoker Tobacco Type: Cigarettes Hx Alcohol Use: No Hx Substance Use: No Preferred Language: Pashto Communication Ability: Effective Visual Impairment: No Limitations Hearing Ability: Hard of Hearing Head Nurse Required: No Beliefs That Will Affect Care: None marital status: Single Current Living Situation: Longterm Current Living Situation Comment: [facility] current occupational status: disabled Feels Safe at Home: Yes Diet: regular caffeine: Yes during the past year weight has: remained stable Dental Care, Regularly: No Physical Activity Frequency: Does not Exercise Seatbelt Use: never Assistive Devices: Denture - Upper, Denture - Lower and Hearing Aid - Bilateral Review of Systems Constitutional: no fever and no chills Respiratory: no dyspnea Cardiovascular: no chest pain Gastrointestinal: + bloating and + diarrhea/loose stools; no abdominal pain, no nausea and no vomiting Physical Exam Physical Exam: awake, no distress. resting comfortably. NGT in place Respiratory: normal respiratory effort Cardiovascular: Rate/Rhythm: regular rate Gastrointestinal (Abdomen): Inspection/Auscultation: + abdomen distended Percussion/Palpation: abdomen soft; abdomen nontender Results & Data Vital Signs (Past 12 Hours) Vital Signs Pulse Pulse Resp BP Pulse Ox O2 Del Method O2 Flow Rate 12/18/23 07:11 81 12/18/23 06:18 81 16 138/88 97 Nasal Cannula 2 12/18/23 03:23 80 18 116/84 97 Room Air 12/18/23 01:40 Room Air 12/18/23 01:09 96 Room Air 12/18/23 00:09 82 Diagnostic Findings Exam(s): CT ABDOMEN + PELVIS Without Contrast EXAM: CT Abdomen and Pelvis Without Intravenous Contrast CLINICAL HISTORY: Reason for exam: eval for obstruction. TECHNIQUE: Axial computed tomography images of the abdomen and pelvis without intravenous contrast. CTDI is 24.59 mGy and DLP is 1391.53 mGy-cm. Automated exposure control was utilized for the study. A dose lowering technique was utilized adhering to the principles of ALARA. COMPARISON: 10/16/2023 FINDINGS: Lung bases: Unremarkable. No mass. No consolidation. ABDOMEN: Liver: Unremarkable. Gallbladder and bile ducts: Unremarkable. No calcified stones. No ductal dilation. Pancreas: Unremarkable. No ductal dilation. Spleen: Unremarkable. No splenomegaly. Adrenals: Unremarkable. No mass. Kidneys and ureters: Unremarkable. No obstructing stones. No hydronephrosis. Stomach and bowel: Unremarkable. No obstruction. No mucosal thickening. PELVIS: Appendix: No findings to suggest acute appendicitis. Bladder: Hernandez catheter within the nondistended urinary bladder. Despite this lack of distention there is circumferential wall thickening of the bladder suggesting cystitis. Stable bladder calcifications. No stones. Reproductive: Unremarkable as visualized. ABDOMEN and PELVIS: Intraperitoneal space: There is marked gaseous distention of the colon with a transition between dilated and nondilated: Left lower quadrant. This appears centered upon a very short segment of wall thickening involving the sigmoid colon best appreciated on axial image 63 series 2. No free air identified on this study. Bones/joints: No acute fracture. No dislocation. Soft tissues: Unremarkable. Vasculature: Unremarkable. No abdominal aortic aneurysm. Lymph nodes: Unremarkable. No enlarged lymph nodes. IMPRESSION: 1. Marked gaseous distention of the colon with a transition noted in the left lower quadrant centered on a focal area of wall thickening involving the sigmoid colon. Underlying mass cannot be entirely excluded. Direct inspection is recommended for further evaluation. . 2. Cystitis 3. Bladder calculi present. Electronically signed by: Yosef Justice MD 12/17/23 21:44 PM [facility]UB CLINICAL HISTORY: Enteric tube placement. FINDINGS: AP, portable, upright view of the lower chest and upper abdomen is compared to study dated 10/17/2023 and correlated with abdominal CT dated 12/17/2023. An enteric tube has been placed. The tip projects below the diaphragm over the proximal stomach. Marked gaseous distention of the colon persists. No evidence of intraperitoneal free air is seen below the diaphragm. Gallstones are seen in the right upper quadrant. There are low lung volumes with bibasilar atelectasis. The skeletal structures are osteopenic and appear intact. Spondylotic change is noted in the spine. IMPRESSION: 1. An enteric tube has been placed as above. 2. Again seen is marked gaseous distention of the colon. This is similar to prior examinations, and when correlated with yesterday's CT scan could represent a colonic ileus or less likely sigmoid volvulus or distal colonic stricture/obstruction. Electronically signed by: Dick Castro M.D. 12/18/2023 7:21 AM PG Care Time/CCT Total # of Minutes Spent Total Time Spent with Patient: Total time spent is greater than 50% in coordination of care (as documented) at patient's floor/unit and/or counseling patient: Coding Level of Care Code 02861 INT INP/OBS CARE MIN Diagnoses Large bowel obstruction K56.609 Abdominal distension R14.0
[2023-12-18] MEDS ORDERED: LANTUS PER UNIT CHARGE SQ SCH ×2 (09:00→21:00)
[2023-12-18] MEDS: PANTOprazole 40 MG in SYRINGE 0 ML IV SCH (10:21)
[2023-12-18] MEDS ORDERED: METOPROLOL TARTRATE 1 MG/ML VIAL IV PRN (10:46)
[2023-12-18] MEDS ORDERED: MoRPHine SULFATE 4 MG/ML 1 ML CARP\\VIAL IV PRN (10:47)
--- NOTE | 2023-12-18 13:04 | Gastrointestinal Consultation ---
<Statement entered by Gabriela Menchaca MD - 12/18/23 15:55> I have examined the patient, reviewed the History & Physical and in the interval since the performance of the History & Physical I have noted the following changes of clinical significance: no changes noted. I agree with the documentation provided by ANA LUISA Davidson with no additional comments. FL bowel reg + NG to low/med intermittent suction with frequent repositioning. Serial abdominal exams. Ensure electrolytes are repleted. No need for endoscopic decompression at this time given that he is improving, denies pain and appears quite comfortable but would keep NPO and continue to reassess. Given the lack of pain, an obstructive process seems quite unlikely. If he does not continue to improve, recommend repeating an abdominal film for comparison. If he does improve, a colonoscopy could be performed prior to discharge to further evaluate his colonic anatomy. Date of Consultation December 18, 2023 Assessment & Plan (1) Abdominal distension: Patient with sudden onset abdominal distention. CT showing cannot rule out underlying mass. He has chronic diarrhea/constipation and per chart related to overflow. - continue with NPO and NG tube. - will trial dulcolax 10mg suppositories q 8 hours. - will continue to follow. History of Present Illness Reason for Consultation: severe abdominal distention / colonic distention Requesting Physician: Mitchel Duran MD Attending Physician: Juan Jefferson MD History of Present Illness Patient is a 68 year old male with a past medical history of of Cerebral Palsy, paraplegia, spina bifida, T2DM, diabetic ulcers of the feet b/l, chronic diarrhea/chronic constipation w/ overflow incontinence, sacral pressure ulcer, HTN, hyponatremia, elevated serum creatinine who presents to the [facility] ED due to increased abdominal distention associated w/ increased episodes of diarrhea. He had CT scan on admission showing Marked gaseous distention of the colon with a transition noted in the left lower quadrant centered on a focal area of wall thickening involving the sigmoid colon. Underlying mass cannot be entirely excluded. Direct inspection is recommended for further evaluation. Cystitis. Bladder calculi present. he tells me that he moves his bowels 3 times daily and that this is predominantly loose. never skips days. no blood in the stools or melena. he denies any nausea, vomiting, abdominal pain. He was seen by surgery who did not feel surgery was needed but recommended GI consult for consideration of endoscopy vs. placement of rectal tube for decompression in the interim. He had an NG tube placed and he feels that the distention is better since this was done. other than distended abdomen, he has no other GI concerns. Allergies Allergy/AdvReac Type Severity Reaction Status Date / Time lisinopril Allergy Unknown Unknown Verified 12/17/23 23:00 sulfamethoxazole AdvReac Unknown Nausea Verified 12/17/23 23:00 [From Bactrim] trimethoprim [From Bactrim] AdvReac Unknown Nausea Verified 12/17/23 23:00 Home Medications Medication Instructions Recorded Confirmed Type blood-glucose meter (OneTouch #1 ea 11/05/18 02/19/23 History Verio Meter) cholecalciferol (vitamin D3) 25 3,000 units PO DAILY 11/05/18 12/17/23 History mcg (1,000 unit) tablet Wheelchair (Manual) #1 ea 04/01/19 02/19/23 Rx diaper,brief,adult,disposable #48 ea 06/30/19 02/19/23 Rx blood sugar diagnostic (OneTouch #100 ea 04/10/20 02/19/23 Rx Ultra Blue Test Strip) tramadol 50 mg tablet 50 mg PO AMHS 12/23/20 12/17/23 History losartan 50 mg tablet 50 mg PO DAILY #30 tabs 07/01/22 12/17/23 Rx acetaminophen 325 mg capsule 650 mg PO Q6H PRN PAIN/FEVER 09/09/22 12/17/23 History (Tylenol) potassium chloride 20 mEq 40 meq PO BID 09/09/22 12/17/23 History tablet,extended release insulin glargine 100 unit/mL (3 60 unit subcut HS 07/15/23 12/17/23 History mL) subcutaneous pen (Basaglar KwikPen U-100 Insulin) linaclotide 72 mcg capsule 72 mcg PO .TUES,THURS,SUN 07/15/23 12/17/23 History (Linzess) constipation propranolol 120 mg capsule,24 120 mg PO QAM 07/15/23 12/17/23 History hr,extended release (Inderal LA) atorvastatin 20 mg tablet (Lipitor) 20 mg PO HS 10/06/23 12/17/23 History furosemide 40 mg tablet 40 mg PO DAILY 10/14/23 12/17/23 History sennosides 8.6 mg-docusate sodium 1 tab-cap PO QAM 10/14/23 12/17/23 History 50 mg tablet (Senokot-S) pantoprazole 40 mg tablet,delayed 40 mg PO AMHS 11/10/23 12/17/23 History release (Protonix) Patient History Medical History Spina bifida Paraplegia Esophagitis Abdominal distension hx chronic intermittent abdominal distention History of cellulitis hx left lower extremity/recurrent cellulitis. History of sepsis Balanitis History of tachycardia Right club foot Cerebral palsy Hypertension Type 2 diabetes mellitus History of small bowel obstruction 10/2023 Cognitive communication deficit Acute kidney failure, unspecified Muscle weakness (generalized) Enterocolitis due to Clostridium difficile, recurrent onset 10/2021 Hyperlipidemia Benign prostatic hyperplasia with lower urinary tract symptoms Hx: UTI (urinary tract infection) complicated uti noted on faxed info. PVD (peripheral vascular disease) did not observe on faxed info. History of COVID-19 07/2022 Anemia hx macrocytic anemia Unspecified intellectual disabilities [facility] resident Suprapubic catheter Heart disease Per group home records Patient's sister (HIPAA contact) denies Surgical History Presence of urogenital implants S/P cystoscopy cystolithopaxy w/ replacement suprapubic cath History of colonoscopy History of esophagogastroduodenoscopy (EGD) Presence of cardiac and vascular implant and graft Noted in group home records with the associated date 2015, [facility] at [facility]- no evidence of cardiac or vascular implant/graft noted at that time- no further details per available group home records Patient's sister (Maribeth, HIPAA contact) denies Family History Mother Peripheral vascular disease Other Cancer Diabetes Heart disease Hypertension Denies family history of Ovarian cancer Prostate cancer Myocardial infarction Breast cancer Colorectal cancer Social History Smoking Status: Former smoker Tobacco Type: Cigarettes Hx Alcohol Use: No Hx Substance Use: No Preferred Language: Ukrainian Communication Ability: Effective Visual Impairment: No Limitations Hearing Ability: Hard of Hearing Bank Accountant Required: No Beliefs That Will Affect Care: None marital status: Single Current Living Situation: [facility] Current Living Situation Comment: [facility] current occupational status: disabled Feels Safe at Home: Yes Diet: regular caffeine: Yes during the past year weight has: remained stable Dental Care, Regularly: No Physical Activity Frequency: Does not Exercise Seatbelt Use: never Assistive Devices: Denture - Upper, Denture - Lower and Hearing Aid - Bilateral Review of Systems Review of Systems: All systems reviewed & are unremarkable except as noted in HPI & below Physical Exam Constitutional: WD/WN, vitals as above Respiratory: normal respiratory effort, lungs clear to auscultation Cardiovascular: RRR, no murmur, no edema Gastrointestinal (Abdomen): distended abdomen. nontender, soft. Psychiatric: Orientation: alert and oriented x 3 Affect: euthymic affect Results & Data Vital Signs (Past 12 Hours) Vital Signs Temp Pulse Pulse Resp BP Pulse Ox O2 Del Method 12/18/23 12:32 78 12/18/23 12:27 97.5 F L 78 20 146/95 H 98 Room Air 12/18/23 07:11 81 12/18/23 06:18 81 16 138/88 97 Nasal Cannula 12/18/23 03:23 80 18 116/84 97 Room Air 12/18/23 01:40 Room Air 12/18/23 01:09 96 Room Air O2 Flow Rate 12/18/23 12:32 12/18/23 12:27 12/18/23 07:11 12/18/23 06:18 2 12/18/23 03:23 12/18/23 01:40 12/18/23 01:09 Coding Level of Care Code 31409 INT INP/OBS CARE 2/55MIN Diagnoses Abdominal distension R14.0
--- NOTE | 2023-12-18 13:32 | Electrocardiogram Report ---
Test Reason : Blood Pressure : / mmHG Vent. Rate : 075 BPM Atrial Rate : 075 BPM P-R Int : 164 ms QRS Dur : 084 ms QT Int : 394 ms P-R-T Axes : 035 033 027 degrees QTc Int : 439 ms Normal sinus rhythm possible Inferior infarct , age undetermined Abnormal ECG When compared with ECG of 14-OCT-2023 09:02, No significant change was found Confirmed by Mitchel Galvan ([id number]) on 12/18/2023 1:31:37 PM Referred By: [facility] Confirmed By:Josemanuel Galvan
[2023-12-18] MEDS: DEXTROSE 50% 50 ML SYRINGE IV PRN (21:12)
[2023-12-18] MEDS: bisacodyL 10 MG SUPP PR SCH (21:25)
[2023-12-18] MEDS: LANTUS PER UNIT CHARGE SQ SCH (22:00)
--- NOTE | 2023-12-19 08:12 | Hospitalist Progress Note ---
Date of Service December 19, 2023 Assessment & Plan (1) Abdominal distension: Plan: Patient is a 68 yo M w/ a PMHx of CP, paraplegia, spina bifida, T2DM, diabetic ulcers of the feet b/l, chronic diarrhea/chronic constipation w/ overflow incontinence, sacral pressure ulcer, HTN, hyponatremia, VIKY with CKD3, who presents to the [facility] ED due to increased abdominal distention associated w/ increased episodes of diarrhea since December 13. Does have hx +cdiff toxin 2021 previous admission for SBO, history of neurogenic bowel, resolved with conservative care 10/30 presents with concern for bowel obstruction and possible mass seen on CT in colon history of constipation and overflow diarrhea, prehospital on Linzess and senna- docusate both on hold patient NPO, consult w/ Gastroenterology placed, consult w/ Gen Surg placed, most recent colonoscopy 09/17/22 with poor prep unable to have complete visualization rectal tube placed currently not on antibiotics ' 12/18 KUB w/ continued gaseous distension however eval by surgery and distension improved/moving bowels w/ suppository and ok for removal NG and trial clears. Feels institutional in nature K 3.4, Mag 1.5 - 3gm IV magnesium ordered ADDED LR +20meq @ 80cc/hr added given no IVF continued while attempting diet Rectal tube/NGT, general surgery/GI on consult and following Messaged GI about surgery recs, ARMANI rec to wait til eval by locum however in interim patient removed his NG himself, will trial clears/monitor response Continue suppositories TID Cdiff added given reports diarrhea THREE KNIFE TRIMMER and prior hx cdiff 2021 Updated sister María at bedside, speech eval also placed given issues at [facility]. Aspiration precautions added Monitor exam on repeat, hopeful flex sig this upcoming week Of note, patient was more mobile/able to stand pivot in the past but given fall risk has been fairly sedentary at [facility] and suspect also contributing. Also on tramadol BID for insomnia? could also be making this worse (2) Diabetes mellitus, type 2: Plan: Glargine reduced from 30 to 10, carb ratio 10, CF 20, 110-160 goal range for blood sugar - patient NPO, hold diet Holding lantus given tight coverage and prevention of hypoglycemia discussed w/ pharmacist and will monitor need to resume w/ diet this afternoon/evening as above Has diabetic ulcer of both feet poa has had chronic issues with non healing ulcers arterial Doppler performed as cool left foot with delayed cap refill, doppler No arterial occlusion or evidence of high-grade stenosis. currently not on antibiotics wound care consult (3) Paraplegia: Plan: History of Cerebal palsy and spina bifida, typically cared for in SNF, Neuromuscular dysfunction of bladder with chronic suprapubic cath without issue of infection, presents with chronic sacral wound Plan Chronic problems HTN- BP stable 138/82 reported continued propranolol 120 mg dailyhowever do not see ordered. Does have METOPROLOL IV q4h prn ordered but hasn't needed to use. NG removing as above and can resume home propranolol for AM. Continue to hold losartan/PO kcl supplementation HLD- hold atorvastatin for now while npo Insomnia - hold tramadol for now, could be making constipation issues worse Code status: DNR/DNI DVT Prophylaxis: Adding Heparin SQ while inpatient given no plans for scope at this present time, however hopefully able ot do this upcoming week for eval underlying malignancy/mass? Dispo: continued inpatient stay, NG removed by patient and will trial clears. Monitor for cdiff given hx and reported diarrhea THREE KNIFE TRIMMER Admission and Anticipated Discharge Date Admission Date: December 18, 2023 Supervising Physician Co-Signing Physician Notes The patient was not seen by me. The chart was reviewed. Case discussed with ANA LUISA Tyson. Agree with assessment and plan Subjective Eval this afternoon, sister in room. Reports abdomen feeling much better, no significant pain despite distension. Discussed possible NG removal/clears per surgery however sister mentioned GI just in and possibility about a scope and will discuss w/ them prior to doing such to prevent any interference if considering scope given would prefer he have flex sig at point while inpatient. Also, sister mentioned [facility] having Michael on pureed diet as issues with secretions at times/swallowing but does also note he eats too fast and takes too big of bites and that has been ongoing issue. Discussed speech consult, inquired about ability to stand. Per maría, Michael had been able to stand/pivot but too big of fall risk at [facility] and they haven't really let him up/around and has had progressive weakness since. Can consider FEES or other pending eval. Michael denies CP/SOB, nausea at this time. No fever/chills. Questions/concerns addressed at this time. Results & Data Results & Data Vital Signs (Past 12 Hours) Vital Signs Temp Pulse Pulse Resp BP Pulse Ox Pulse Ox 12/19/23 07:32 36.5 C 87 20 128/87 94 12/19/23 02:37 36.1 C L 69 18 109/59 L 96 12/19/23 01:09 93 12/18/23 22:05 71 O2 Del Method O2 Del Method 12/19/23 07:32 Room Air 12/19/23 02:37 Room Air 12/19/23 01:09 Room Air, Oxyhood 12/18/23 22:05 Laboratory Results 12/19/23 12/19/23 12/19/23 Range/Units 11:48 07:45 07:39 WBC 5.99 (4.8-10.8) K/ul RBC 4.04 L (4.70-6.10) M/uL Hgb 12.6 L (14.0-18.0) g/dl Hct 36.7 L (42.0-52.0) % MCV 90.8 (80.0-100.0) fL MCH 31.2 (25.0-34.0) pg MCHC 34.3 (32.0-36.0) g/dL RDW Std Deviation 45.1 (36.4-46.3) fL RDW Coeff of Renée 13.7 (11.5-14.5) % Plt Count 195 (130-400) K/uL MPV 9.1 L (9.4-12.4) fL Immature Gran % (Auto) 0.3 % Neut % (Auto) 69.1 % Lymph % (Auto) 19.4 % [place]oup % (Auto) 7.0 % Eos % (Auto) 3.5 % Baso % (Auto) 0.7 % Neut # (Auto) 4.14 (1.40-6.50) K/uL Lymph # (Auto) 1.16 L (1.20-3.40) K/uL Loup # (Auto) 0.42 (0.11-0.59) K/uL Eos # (Auto) 0.21 (0.00-0.50) K/uL Baso # (Auto) 0.04 (0.00-0.20) K/uL Immature Gran # (Auto) 0.02 (0.01-0.20) K/uL Sodium 140 (136-145) mmol/L Potassium 3.4 L (3.5-5.1) mmol/L Chloride 105 (98-107) mmol/L Carbon Dioxide 26 (21-32) mmol/L Anion Gap 9 (3-11) BUN 7 (6-23) mg/dl Creatinine 0.84 (0.6-1.4) mg/dl Est Cr Clr Drug Dosing 89.8 ml/min Est GFR ( Amer) 102.8 ml/min Est GFR (Non-Af Amer) 88.7 ml/min BUN/Creatinine Ratio 8.3 L (10-20) Glucose 105 H (70-99(Fasting)) mg/dl POC Glucose 108 H (70-99) mg/dl Calcium 8.5 L (8.6-10.3) mg/dl Magnesium 1.5 L (1.7-2.4) mg/dl Total Bilirubin 1.2 H (0.2-1.0) mg/dl AST 21 (13-39) U/L ALT 18 (7-52) U/L Alkaline Phosphatase 121 H (34-104) U/L Total Protein 6.2 (6.0-8.3) gm/dl Albumin 3.6 (3.4-5.0) gm/dl Globulin 2.6 (2.5-4.0) gm/dl Albumin/Globulin Ratio 1.4 (0.9-2) Urine Color Urine Appearance Urine pH Ur Specific [place] Urine Protein Urine Glucose (UA) Urine Ketones Urine Blood Urine Nitrite Urine Bilirubin Urine Urobilinogen Ur Leukocyte Esterase Urine WBC (Auto) Urine RBC (Auto) U Hyaline Cast (Auto) U Epithel Cells (Auto) Urine Bacteria (Auto) Ur Renal Epithelial Cell [place] Biurate Crystals Calcium Oxalate Crystal Leucine Crystals Cystine Crystals Uric Acid Crystals Triple Phos Crystals Sulfonamide Crystals Cholesterol Crystals Talc Crystals Tyrosine Crystals Hippuric Acid Crystals Unidentified Crystals Amorphous Sediment Epithelial Casts Hyaline Casts Granular Casts Waxy Casts RBC Casts WBC Casts Other Casts Urine Mucus Urine Other Urine Trichomonas Urine Yeast Urine Sperm Ur Oval Fat Bodies Nasal Screen MRSA (PCR) (Negative) 12/19/23 12/19/23 12/18/23 Range/Units 05:28 03:39 23:30 WBC (4.8-10.8) K/ul RBC (4.70-6.10) M/uL Hgb (14.0-18.0) g/dl Hct (42.0-52.0) % MCV (80.0-100.0) fL MCH (25.0-34.0) pg MCHC (32.0-36.0) g/dL RDW Std Deviation (36.4-46.3) fL RDW Coeff of Renée (11.5-14.5) % Plt Count (130-400) K/uL MPV (9.4-12.4) fL Immature Gran % (Auto) % Neut % (Auto) % Lymph % (Auto) % [place] % (Auto) % Eos % (Auto) % Baso % (Auto) % Neut # (Auto) (1.40-6.50) K/uL Lymph # (Auto) (1.20-3.40) K/uL Loup # (Auto) (0.11-0.59) K/uL Eos # (Auto) (0.00-0.50) K/uL Baso # (Auto) (0.00-0.20) K/uL Immature Gran # (Auto) (0.01-0.20) K/uL Sodium (136-145) mmol/L Potassium (3.5-5.1) mmol/L Chloride (98-107) mmol/L Carbon Dioxide (21-32) mmol/L Anion Gap (3-11) BUN (6-23) mg/dl Creatinine (0.6-1.4) mg/dl Est Cr Clr Drug Dosing ml/min Est GFR ( Amer) ml/min Est GFR (Non-Af Amer) ml/min BUN/Creatinine Ratio (10-20) Glucose (70-99(Fasting)) mg/dl POC Glucose 127 H 104 H (70-99) mg/dl Calcium (8.6-10.3) mg/dl Magnesium (1.7-2.4) mg/dl Total Bilirubin (0.2-1.0) mg/dl AST (13-39) U/L ALT (7-52) U/L Alkaline Phosphatase (34-104) U/L Total Protein (6.0-8.3) gm/dl Albumin (3.4-5.0) gm/dl Globulin (2.5-4.0) gm/dl Albumin/Globulin Ratio (0.9-2) Urine Color Urine Appearance Urine pH Ur Specific [place] Urine Protein Urine Glucose (UA) Urine Ketones Urine Blood Urine Nitrite Urine Bilirubin Urine Urobilinogen Ur Leukocyte Esterase Urine WBC (Auto) Urine RBC (Auto) U Hyaline Cast (Auto) U Epithel Cells (Auto) Urine Bacteria (Auto) Ur Renal Epithelial Cell [place] Biurate Crystals Calcium Oxalate Crystal Leucine Crystals Cystine Crystals Uric Acid Crystals Triple Phos Crystals Sulfonamide Crystals Cholesterol Crystals Talc Crystals Tyrosine Crystals Hippuric Acid Crystals Unidentified Crystals Amorphous Sediment Epithelial Casts Hyaline Casts Granular Casts Waxy Casts RBC Casts WBC Casts Other Casts Urine Mucus Urine Other Urine Trichomonas Urine Yeast Urine Sperm Ur Oval Fat Bodies Nasal Screen MRSA (PCR) Negative (Negative) 12/18/23 12/18/23 12/18/23 Range/Units 21:28 21:07 21:05 WBC (4.8-10.8) K/ul RBC (4.70-6.10) M/uL Hgb (14.0-18.0) g/dl Hct (42.0-52.0) % MCV (80.0-100.0) fL MCH (25.0-34.0) pg MCHC (32.0-36.0) g/dL RDW Std Deviation (36.4-46.3) fL RDW Coeff of Renée (11.5-14.5) % Plt Count (130-400) K/uL MPV (9.4-12.4) fL Immature Gran % (Auto) % Neut % (Auto) % Lymph % (Auto) % [place] % (Auto) % Eos % (Auto) % Baso % (Auto) % Neut # (Auto) (1.40-6.50) K/uL Lymph # (Auto) (1.20-3.40) K/uL [place]oup # (Auto) (0.11-0.59) K/uL Eos # (Auto) (0.00-0.50) K/uL Baso # (Auto) (0.00-0.20) K/uL Immature Gran # (Auto) (0.01-0.20) K/uL Sodium (136-145) mmol/L Potassium (3.5-5.1) mmol/L Chloride (98-107) mmol/L Carbon Dioxide (21-32) mmol/L Anion Gap (3-11) BUN (6-23) mg/dl Creatinine (0.6-1.4) mg/dl Est Cr Clr Drug Dosing ml/min Est GFR ( Amer) ml/min Est GFR (Non-Af Amer) ml/min BUN/Creatinine Ratio (10-20) Glucose (70-99(Fasting)) mg/dl POC Glucose 134 H 63 L* 66 L* (70-99) mg/dl Calcium (8.6-10.3) mg/dl Magnesium (1.7-2.4) mg/dl Total Bilirubin (0.2-1.0) mg/dl AST (13-39) U/L ALT (7-52) U/L Alkaline Phosphatase (34-104) U/L Total Protein (6.0-8.3) gm/dl Albumin (3.4-5.0) gm/dl Globulin (2.5-4.0) gm/dl Albumin/Globulin Ratio (0.9-2) Urine Color Urine Appearance Urine pH Ur Specific [place] Urine Protein Urine Glucose (UA) Urine Ketones Urine Blood Urine Nitrite Urine Bilirubin Urine Urobilinogen Ur Leukocyte Esterase Urine WBC (Auto) Urine RBC (Auto) U Hyaline Cast (Auto) U Epithel Cells (Auto) Urine Bacteria (Auto) Ur Renal Epithelial Cell [place] Biurate Crystals Calcium Oxalate Crystal Leucine Crystals Cystine Crystals Uric Acid Crystals Triple Phos Crystals Sulfonamide Crystals Cholesterol Crystals Talc Crystals Tyrosine Crystals Hippuric Acid Crystals Unidentified Crystals Amorphous Sediment Epithelial Casts Hyaline Casts Granular Casts Waxy Casts RBC Casts WBC Casts Other Casts Urine Mucus Urine Other Urine Trichomonas Urine Yeast Urine Sperm Ur Oval Fat Bodies Nasal Screen MRSA (PCR) (Negative) 12/18/23 12/18/23 Range/Units 18:04 14:30 WBC (4.8-10.8) K/ul RBC (4.70-6.10) M/uL Hgb (14.0-18.0) g/dl Hct (42.0-52.0) % MCV (80.0-100.0) fL MCH (25.0-34.0) pg MCHC (32.0-36.0) g/dL RDW Std Deviation (36.4-46.3) fL RDW Coeff of Renée (11.5-14.5) % Plt Count (130-400) K/uL MPV (9.4-12.4) fL Immature Gran % (Auto) % Neut % (Auto) % Lymph % (Auto) % [place] % (Auto) % Eos % (Auto) % Baso % (Auto) % Neut # (Auto) (1.40-6.50) K/uL Lymph # (Auto) (1.20-3.40) K/uL [place] # (Auto) (0.11-0.59) K/uL Eos # (Auto) (0.00-0.50) K/uL Baso # (Auto) (0.00-0.20) K/uL Immature Gran # (Auto) (0.01-0.20) K/uL Sodium (136-145) mmol/L Potassium (3.5-5.1) mmol/L Chloride (98-107) mmol/L Carbon Dioxide (21-32) mmol/L Anion Gap (3-11) BUN (6-23) mg/dl Creatinine (0.6-1.4) mg/dl Est Cr Clr Drug Dosing ml/min Est GFR ( Amer) ml/min Est GFR (Non-Af Amer) ml/min BUN/Creatinine Ratio (10-20) Glucose (70-99(Fasting)) mg/dl POC Glucose 71 (70-99) mg/dl Calcium (8.6-10.3) mg/dl Magnesium (1.7-2.4) mg/dl Total Bilirubin (0.2-1.0) mg/dl AST (13-39) U/L ALT (7-52) U/L Alkaline Phosphatase (34-104) U/L Total Protein (6.0-8.3) gm/dl Albumin (3.4-5.0) gm/dl Globulin (2.5-4.0) gm/dl Albumin/Globulin Ratio (0.9-2) Urine Color Cancelled Urine Appearance Cancelled Urine pH Cancelled Ur Specific [place] Cancelled Urine Protein Cancelled Urine Glucose (UA) Cancelled Urine Ketones Cancelled Urine Blood Cancelled Urine Nitrite Cancelled Urine Bilirubin Cancelled Urine Urobilinogen Cancelled Ur Leukocyte Esterase Cancelled Urine WBC (Auto) Cancelled Urine RBC (Auto) Cancelled U Hyaline Cast (Auto) Cancelled U Epithel Cells (Auto) Cancelled Urine Bacteria (Auto) Cancelled Ur Renal Epithelial Cell Cancelled [place] Biurate Crystals Cancelled Calcium Oxalate Crystal Cancelled Leucine Crystals Cancelled Cystine Crystals Cancelled Uric Acid Crystals Cancelled Triple Phos Crystals Cancelled Sulfonamide Crystals Cancelled Cholesterol Crystals Cancelled Talc Crystals Cancelled Tyrosine Crystals Cancelled Hippuric Acid Crystals Cancelled Unidentified Crystals Cancelled Amorphous Sediment Cancelled Epithelial Casts Cancelled Hyaline Casts Cancelled Granular Casts Cancelled Waxy Casts Cancelled RBC Casts Cancelled WBC Casts Cancelled Other Casts Cancelled Urine Mucus Cancelled Urine Other Cancelled Urine Trichomonas Cancelled Urine Yeast Cancelled Urine Sperm Cancelled Ur Oval Fat Bodies Cancelled Nasal Screen MRSA (PCR) (Negative) Diagnostic Findings KUB X-Ray 12/19/23 06:00 KUB HISTORY: eval bowel distention COMPARISON: KUB 12/18/2023. FINDINGS: The nasogastric tube remains within the stomach. The lung bases are clear. Severe gaseous distention of the colon persists. This is most pronounced within the sigmoid colon. Mildly dilated gas-filled loops of small bowel are also unchanged. No renal calculi. No ureteral calculi. No pneumoperitoneum or pneumatosis. IMPRESSION: 1. The nasogastric tube remains within the stomach. 2. Severe gaseous distention of the colon again noted. ACT 112: Negative or not required by law. Electronically signed by: Rd Ty M.D. 12/19/2023 10:48 AM PG Care Time/CCT Total # of Minutes Spent Total Time Spent with Patient: Total time spent is greater than 50% in coordination of care (as documented) at patient's floor/unit and/or counseling patient: Coding Level of Care Code 06331 SUB INP/OBS CARE 3/50MIN Diagnoses Abdominal distension R14.0 Diabetes mellitus, type 2 E11.9 Paraplegia G82.20
[2023-12-19 08:57] LABS: Albumin Globulin Ratio 1.4 (0.9-2); Albumin Level 3.6 gm/dl (3.4-5.0); BUN Creatinine Ratio 8.3 (10-20); Bilirubin,Total 1.2 mg/dl (0.2-1.0); Calcium 8.5 mg/dl (8.6-10.3); Creatinine Clr Calc Pharmacy 89.8 ml/min; Est GFR (African American) 102.8 ml/min; Est GFR (Non-African American) 88.7 ml/min; Globulin 2.6 gm/dl (2.5-4.0); Magnesium 1.5 mg/dl (1.7-2.4); Potassium 3.4 mmol/L (3.5-5.1); Total Protein 6.2 gm/dl (6.0-8.3)
[2023-12-19 08:58] LABS: Basophils # (auto) 0.04 K/uL (0.00-0.20); Basophils % (auto) 0.7 %; Eosinophils # (auto) 0.21 K/uL (0.00-0.50); Eosinophils % (auto) 3.5 %; Hematocrit (blood only) 36.7 % (42.0-52.0); Hemoglobin 12.6 g/dl (14.0-18.0); Immature Granulocytes # (auto) 0.02 K/uL (0.01-0.20); Immature Granulocytes % (auto) 0.3 %; Lymphocytes # (auto) 1.16 K/uL (1.20-3.40); Lymphocytes % (auto) 19.4 %; Mean Corpuscular Hemoglobin 31.2 pg (25.0-34.0); Mean Corpuscular Hgb Conc 34.3 g/dL (32.0-36.0); Mean Corpuscular Volume 90.8 fL (80.0-100.0); Mean Platelet Volume 9.1 fL (9.4-12.4); Monocytes # (auto) 0.42 K/uL (0.11-0.59); Neutrophils # (auto) 4.14 K/uL (1.40-6.50); Neutrophils % (auto) 69.1 %; Platelet Count 195 K/uL (130-400); RDW Coefficient of Variation 13.7 % (11.5-14.5); RDW Standard Deviation 45.1 fL (36.4-46.3); Red Blood Count 4.04 M/uL (4.70-6.10); White Blood Count 5.99 K/ul (4.8-10.8)
--- NOTE | 2023-12-19 09:01 | Surgery Progress Note ---
Date of Service December 19, 2023 Assessment & Plan (1) Large bowel obstruction: Plan: suspect more likely institutional bowel repeat KUB. will likely d/c ngt and start clears later. will need at least sigmoidoscopy by GI in near future (2) Abdominal distension: Admission and Anticipated Discharge Date Admission Date: December 18, 2023 Subjective pt seen. per nursing having ++++flatus. pt denies pain or nausea Physical Exam Physical Exam: alert. nad abd: soft. mild distension. non-tender Results & Data Vital Signs (Past 12 Hours) Vital Signs Temp Pulse Pulse Resp BP Pulse Ox Pulse Ox 12/19/23 07:32 36.5 C 87 20 128/87 94 12/19/23 02:37 36.1 C L 69 18 109/59 L 96 12/19/23 01:09 93 12/18/23 22:05 71 O2 Del Method O2 Del Method 12/19/23 07:32 Room Air 12/19/23 02:37 Room Air 12/19/23 01:09 Room Air, Oxyhood 12/18/23 22:05 PG Care Time/CCT Total # of Minutes Spent Total Time Spent with Patient: Total time spent is greater than 50% in coordination of care (as documented) at patient's floor/unit and/or counseling patient: Coding Level of Care Code 53996 SUB INP/OBS CARE 07/03MIN Diagnoses Large bowel obstruction K56.609 Abdominal distension R14.0
[2023-12-19] MEDS: MAGNESIUM SULFATE / D5W 1 GM/100 ML BAG IV SCH (10:31)
[2023-12-19] MEDS: POTASSIUM CHLORIDE / WTR 10 MEQ/100 ML PLCT IV SCH (10:38)
[2023-12-19] MEDS: POTASSIUM CHLORIDE 20 MEQ in LACTATED RINGER'S 1,000 ML IV SCH (10:38)
--- NOTE | 2023-12-19 10:49 | XRay Report ---
KUB HISTORY: eval bowel distention COMPARISON: KUB 12/18/2023. FINDINGS: The nasogastric tube remains within the stomach. The lung bases are clear. Severe gaseous d istention of the colon persists. This is most pronounced within the sigmoid colon. Mildly dilated gas -filled loops of small bowel are also unchanged. No renal calculi. No ureteral calculi. No pneumoper itoneum or pneumatosis. IMPRESSION: 1. The nasogastric tube remains within the stomach. 2. Severe gaseous distention of the colon again noted. ACT 112: Negative or not required by law. Electronically signed by: Rd Ty M.D. 12/19/2023 10:48 AM
--- NOTE | 2023-12-19 12:51 | Gastroenterology Progress Note ---
<Statement entered by Salas Sarmiento MD - 12/19/23 17:29> Patient seen and examined. Case discussed with PA. Patient feels OK but no BMs although he has had flatus. Afebrile VSS Abd: distended with BS although hypoactive. Rec: Increase activity Dulcolax suppositories Follow abdominal films If he has increased pain or N/V would reinsert NG to LIWS. Date of Service December 19, 2023 Assessment & Plan (1) Large bowel obstruction: Plan: - continue with NG and dulcolax suppositories to help. Patient is feeling improved as far as abdominal distention. will continue to monitor. Admission and Anticipated Discharge Date Admission Date: December 18, 2023 Subjective I spoke with nursing, he is passing alot of flatus today and has moved his bowels with the suppository. NG still in place. patient tells me that he feels less distended today. no nausea, vomiting, heartburn. KUB 12/18 The nasogastric tube remains within the stomach. Severe gaseous distention of the colon again noted. discussed with patient's sister at bedside. Review of Systems Review of Systems: All systems reviewed & are unremarkable except as noted in HPI & below Physical Exam Constitutional: WD/WN, vitals as above Respiratory: normal respiratory effort, lungs clear to auscultation Cardiovascular: RRR, no murmur, no edema Gastrointestinal (Abdomen): abdomen distended, but less so than yesterday. nontender, soft. bowel sounds present. Psychiatric: Orientation: alert and oriented x 3 Affect: euthymic affect Results & Data Results & Data Vital Signs (Past 12 Hours) Vital Signs Temp Pulse Pulse Resp BP Pulse Ox Pulse Ox 12/19/23 11:14 97.7 F 87 20 138/82 94 12/19/23 08:09 67 12/19/23 07:32 97.7 F 87 20 128/87 94 12/19/23 02:37 97.0 F L 69 18 109/59 L 96 12/19/23 01:09 93 O2 Del Method O2 Del Method 12/19/23 11:14 Room Air 12/19/23 08:09 12/19/23 07:32 Room Air 12/19/23 02:37 Room Air 12/19/23 01:09 Room Air, Oxyhood Coding Level of Care Code 60445 SUB INP/OBS CARE 07/03MIN Diagnoses Large bowel obstruction K56.609
[2023-12-19] MEDS: HEPARIN SOD 5,000 UNIT/0.5 ML VIAL SQ SCH (20:13)
[2023-12-20 05:41] LABS: Appearance Urine Turbid (Clear); Bacteria Urine Automated 4+ (None Seen); Bilirubin Urine Negative (Negative); Blood Urine 1+ (Negative); Color Urine Yellow; Epithelial Cell Urine Auto 0-2 /hpf (0-2); Glucose Urine UA Negative (Negative); Ketones Urine 3+ (Negative); Leukocyte Esterase Urine 2+ (Negative); Nitrite Urine Negative (Negative); Protein Urine 3+ (Negative); RBC Urine Automated >20 /hpf (0-2); Specific Gravity Urine 1.018 (1.000-1.030); Urobilinogen Urine Positive (Negative); WBC Urine Automated >50 /hpf (0-5); pH Urine 7.5 (4.5-7.5)
[2023-12-20 05:57] LABS: Triple Phosphate Crystal Urine Present (None Prsent)
[2023-12-20 06:25] LABS: Albumin Level 3.5 gm/dl (3.4-5.0); BUN Creatinine Ratio 8.6 (10-20); Bilirubin Direct 0.3 mg/dl (0-0.2); Bilirubin,Total 1.2 mg/dl (0.2-1.0); Calcium 8.3 mg/dl (8.6-10.3); Creatinine Clr Calc Pharmacy 81.1 ml/min; Est GFR (African American) 96.1 ml/min; Est GFR (Non-African American) 82.9 ml/min; Magnesium 1.9 mg/dl (1.7-2.4); Phosphorus 2.6 mg/dl (2.5-4.9); Potassium 3.8 mmol/L (3.5-5.1)
[2023-12-20 06:39] LABS: Thyroid Stimulating Hormone 0.648 uIu/ml (0.300-4.500)
[2023-12-20 07:18] LABS: Folate (Folic Acid),Ser orPlas 13.89 ng/ml (>5.38)
[2023-12-20] MEDS: PROPRANOLOL HCL 60 MG LA CAP PO SCH (07:33)
--- NOTE | 2023-12-20 08:25 | Hospitalist Progress Note ---
Date of Service December 20, 2023 Assessment & Plan (1) Abdominal distension: Plan: Patient is a 68 yo M w/ a PMHx of CP, paraplegia, spina bifida, T2DM, diabetic ulcers of the feet b/l, chronic diarrhea/chronic constipation w/ overflow incontinence, sacral pressure ulcer, HTN, hyponatremia, VIKY with CKD3, who presents to the [facility] ED due to increased abdominal distention associated w/ increased episodes of diarrhea since December 13. Does have hx +cdiff toxin 2021 previous admission for SBO, history of neurogenic bowel, resolved with conservative care 10/30 presents with concern for bowel obstruction and possible mass seen on CT in colon history of constipation and overflow diarrhea, prehospital on Linzess and senna- docusate both on hold patient NPO, consult w/ Gastroenterology placed, consult w/ Gen Surg placed, most recent colonoscopy 09/17/22 with poor prep unable to have complete visualization rectal tube placed currently not on antibiotics 12/18 KUB w/ continued gaseous distension however eval by surgery and distension improved/moving bowels w/ suppository and ok for removal NG and trial clears. Feels institutional in nature K 3.4, Mag 1.5 - 3gm IV magnesium ordered ADDED LR +20meq @ 80cc/hr added given no IVF continued while attempting diet Rectal tube/NGT, general surgery/GI on consult and following Messaged GI about surgery recs, ARMANI rec to wait til eval by locum however in interim patient removed his NG himself, will trial clears/monitor response Continue suppositories TID Cdiff added given reports diarrhea [employer] and prior hx cdiff 2021 Updated sister María at bedside, speech eval also placed given issues at [facility]. Aspiration precautions added Monitor exam on repeat, hopeful flex sig this upcoming week Of note, patient was more mobile/able to stand pivot in the past but given fall risk has been fairly sedentary at [facility] and suspect also contributing. Also on tramadol BID for insomnia? could also be making this worse 12/19 Suspect immobilization, pain medications, and diuretics contributing to current issue. Thankfull NG removal yesterday without further vomiting or abdominal pain reported and +BS on exam and moving bowels w/ TID suppositories and trial of clear liquids yesterday. No cdiff sent but should be sent when able Continued on LR + 20meq KCl @ 75cc/hr x 2 and will hold off further for now (on lasix at baseline) -Electrolytes stable/improved, K 3.8, mag 1.9 KUB ordered for this morning, able to do portable but not done, however per nursing notes brown/seedy copious BM reported overnight however not sent for cdiff as ordered but will send next as able hopefully Patient w/ +BS throughout however and discuss w/ surgery and Dr Aleman rec full liquid diet and can adv to prior pureed Speech to see today given prior concerns. ?loose dentures, did alright. Aspiration precautions UA obtained, cx pending. cystitis on CTAP on admission w/ bladder calculi present -- monitor cx but will hold off abx at this time however may require. Given hx cdiff will monitor for now suprapubic catheter was exchanged in the past 30 days w/ Dr Perez, is draining but having some sediment/chunks Home propranolol resumed Consulted PT to see about trying to improve ambulation. Activity ordered OOB w/ assistance in meantime as doesn't appear we are getting him up which isn't helping B12 259, will give some IM replacement while inpatient and clears, can switch to PO when taking more consistently (2) Diabetes mellitus, type 2: Plan: Glargine reduced from 30 to 10, carb ratio 10, CF 20, 110-160 goal range for blood sugar Placed glargine 10 on hold while NPO given lower BSGs and tight coverage. Improvement in BSGs and now advancing diet and will resume glargine 10 for tonight/adjust as needed Has diabetic ulcer of both feet poa has had chronic issues with non healing ulcers arterial Doppler performed as cool left foot with delayed cap refill, doppler No arterial occlusion or evidence of high-grade stenosis. 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 Hold off lasix for now to prevent dehydration off IVF HLD- hold atorvastatin for now while npo, can resume in AM if taking PO reliable Insomnia - hold tramadol for now, could be making constipation issues worse and doesn't seem to be having much issues overnight pulse ox for tonight as snoring in room Code status: DNR/DNI DVT Prophylaxis: Heparin SQ added given no plans for scope in patient not very mobile Dispo: advancing diet as outlined, KUB pending. monitor for cdiff, f/u urine cx Appreciate GI/general surgery. Hopefully would be able to consider flex sig this upcoming week to eval for underlying malignancy/mass? *prior CTAP w/ transition point near ileocecal valve Admission and Anticipated Discharge Date Admission Date: December 18, 2023 Supervising Physician Co-Signing Physician Notes The patient was not seen by me. The chart was reviewed. Case discussed with ANA LUISA Tyson. Agree with assessment and plan Subjective Evaluated this morning, sitting up in bed. No further nausea/vomiting. Moved bowels overnight. ABdomen still distended however soft and nontender. Surgery saw this morning and advancing diet. Continues on bowel regimen. Speech to see for swallowing issues. Therapy eval placed/pending. Questions/concerns addressed at this time, will update sister via phone. Physical Exam Physical Exam: General: 68yo male resting in bed, NAD, reports moving bowels yesterday/not having any pain today HEENT: NG removed day prior, mmm, trachea midline Resp; even/unlabored, slightly diminshed int he bases but no w/c/r, on room air CV: RRR, +systolic murmur, no pitting edema/calf tenderness GI: +BS throughout however +DISTENSION, however softer and remains NONTENDER at present Suprapubic catheter in place, yellow urine w/ sediment in tubing MSK/Neuro: generalized weakness but nonfocal. Able to follow commands, answer questions appropriately. Psych: alert to person/place, cooperative with exam Results & Data Results & Data Vital Signs (Past 12 Hours) Vital Signs Temp Pulse Pulse Resp BP Pulse Ox Pulse Ox 12/20/23 07:40 12/20/23 07:00 91 H 12/20/23 03:22 36.9 C 96 H 18 135/69 94 12/20/23 01:26 93 12/19/23 23:45 36.9 C 112 H 18 133/76 95 12/19/23 22:14 102 H O2 Del Method O2 Del Method 12/20/23 07:40 Room Air 12/20/23 07:00 12/20/23 03:22 Room Air 12/20/23 01:26 Room Air 12/19/23 23:45 Room Air 12/19/23 22:14 Laboratory Results 12/20/23 12/20/23 12/20/23 Range/Units 05:32 05:27 05:00 WBC (4.8-10.8) K/ul RBC (4.70-6.10) M/uL Hgb (14.0-18.0) g/dl Hct (42.0-52.0) % MCV (80.0-100.0) fL MCH (25.0-34.0) pg MCHC (32.0-36.0) g/dL RDW Std Deviation (36.4-46.3) fL RDW Coeff of Renée (11.5-14.5) % Plt Count (130-400) K/uL MPV (9.4-12.4) fL Immature Gran % (Auto) % Neut % (Auto) % Lymph % (Auto) % Wake % (Auto) % Eos % (Auto) % Baso % (Auto) % Neut # (Auto) (1.40-6.50) K/uL Lymph # (Auto) (1.20-3.40) K/uL Wake # (Auto) (0.11-0.59) K/uL Eos # (Auto) (0.00-0.50) K/uL Baso # (Auto) (0.00-0.20) K/uL Immature Gran # (Auto) (0.01-0.20) K/uL Sodium 139 (136-145) mmol/L Potassium 3.8 (3.5-5.1) mmol/L Chloride 106 (98-107) mmol/L Carbon Dioxide 24 (21-32) mmol/L Anion Gap 9 (3-11) BUN 8 (6-23) mg/dl Creatinine 0.93 (0.6-1.4) mg/dl Est Cr Clr Drug Dosing 81.1 ml/min Est GFR ( Amer) 96.1 ml/min Est GFR (Non-Af Amer) 82.9 ml/min BUN/Creatinine Ratio 8.6 L (10-20) Glucose 111 H (70-99(Fasting)) mg/dl POC Glucose 108 H (70-99) mg/dl Calcium 8.3 L (8.6-10.3) mg/dl Phosphorus 2.6 (2.5-4.9) mg/dl Magnesium 1.9 (1.7-2.4) mg/dl Total Bilirubin 1.2 H (0.2-1.0) mg/dl Direct Bilirubin 0.3 H (0-0.2) mg/dl AST 21 (13-39) U/L ALT 16 (7-52) U/L Alkaline Phosphatase 113 H (34-104) U/L Total Protein 6.0 (6.0-8.3) gm/dl Albumin 3.5 (3.4-5.0) gm/dl Globulin (2.5-4.0) gm/dl Albumin/Globulin Ratio (0.9-2) Vitamin B12 259 (180-914) pg/ml Folate 13.89 (>5.38) ng/ml TSH 0.648 (0.300-4.500) uIu/ml Urine Color Yellow Urine Appearance Turbid A (Clear) Urine pH 7.5 (4.5-7.5) Ur Specific Valencia 1.018 (1.000-1.030) Urine Protein 3+ H (Negative) Urine Glucose (UA) Negative (Negative) Urine Ketones 3+ H (Negative) Urine Blood 1+ H (Negative) Urine Nitrite Negative (Negative) Urine Bilirubin Negative (Negative) Urine Urobilinogen Positive H (Negative) Ur Leukocyte Esterase 2+ H (Negative) Urine WBC (Auto) >50 H (0-5) /hpf Urine RBC (Auto) >20 H (0-2) /hpf U Hyaline Cast (Auto) 11-20 H (0-2) /lpf U Epithel Cells (Auto) 0-2 (0-2) /hpf Urine Bacteria (Auto) 4+ H (None Seen) Triple Phos Crystals Present A (None Prsent) 12/19/23 12/19/23 12/19/23 Range/Units 23:33 18:06 11:48 WBC (4.8-10.8) K/ul RBC (4.70-6.10) M/uL Hgb (14.0-18.0) g/dl Hct (42.0-52.0) % MCV (80.0-100.0) fL MCH (25.0-34.0) pg MCHC (32.0-36.0) g/dL RDW Std Deviation (36.4-46.3) fL RDW Coeff of Renée (11.5-14.5) % Plt Count (130-400) K/uL MPV (9.4-12.4) fL Immature Gran % (Auto) % Neut % (Auto) % Lymph % (Auto) % Wake % (Auto) % Eos % (Auto) % Baso % (Auto) % Neut # (Auto) (1.40-6.50) K/uL Lymph # (Auto) (1.20-3.40) K/uL Wake # (Auto) (0.11-0.59) K/uL Eos # (Auto) (0.00-0.50) K/uL Baso # (Auto) (0.00-0.20) K/uL Immature Gran # (Auto) (0.01-0.20) K/uL Sodium (136-145) mmol/L Potassium (3.5-5.1) mmol/L Chloride (98-107) mmol/L Carbon Dioxide (21-32) mmol/L Anion Gap (3-11) BUN (6-23) mg/dl Creatinine (0.6-1.4) mg/dl Est Cr Clr Drug Dosing ml/min Est GFR ( Amer) ml/min Est GFR (Non-Af Amer) ml/min BUN/Creatinine Ratio (10-20) Glucose (70-99(Fasting)) mg/dl POC Glucose 121 H 96 108 H (70-99) mg/dl Calcium (8.6-10.3) mg/dl Phosphorus (2.5-4.9) mg/dl Magnesium (1.7-2.4) mg/dl Total Bilirubin (0.2-1.0) mg/dl Direct Bilirubin (0-0.2) mg/dl AST (13-39) U/L ALT (7-52) U/L Alkaline Phosphatase (34-104) U/L Total Protein (6.0-8.3) gm/dl Albumin (3.4-5.0) gm/dl Globulin (2.5-4.0) gm/dl Albumin/Globulin Ratio (0.9-2) Vitamin B12 (180-914) pg/ml Folate (>5.38) ng/ml TSH (0.300-4.500) uIu/ml Urine Color Urine Appearance (Clear) Urine pH (4.5-7.5) Ur Specific Valencia (1.000-1.030) Urine Protein (Negative) Urine Glucose (UA) (Negative) Urine Ketones (Negative) Urine Blood (Negative) Urine Nitrite (Negative) Urine Bilirubin (Negative) Urine Urobilinogen (Negative) Ur Leukocyte Esterase (Negative) Urine WBC (Auto) (0-5) /hpf Urine RBC (Auto) (0-2) /hpf U Hyaline Cast (Auto) (0-2) /lpf U Epithel Cells (Auto) (0-2) /hpf Urine Bacteria (Auto) (None Seen) Triple Phos Crystals (None Prsent) 12/19/23 12/19/23 Range/Units 07:45 07:39 WBC 5.99 (4.8-10.8) K/ul RBC 4.04 L (4.70-6.10) M/uL Hgb 12.6 L (14.0-18.0) g/dl Hct 36.7 L (42.0-52.0) % MCV 90.8 (80.0-100.0) fL MCH 31.2 (25.0-34.0) pg MCHC 34.3 (32.0-36.0) g/dL RDW Std Deviation 45.1 (36.4-46.3) fL RDW Coeff of Renée 13.7 (11.5-14.5) % Plt Count 195 (130-400) K/uL MPV 9.1 L (9.4-12.4) fL Immature Gran % (Auto) 0.3 % Neut % (Auto) 69.1 % Lymph % (Auto) 19.4 % Wake % (Auto) 7.0 % Eos % (Auto) 3.5 % Baso % (Auto) 0.7 % Neut # (Auto) 4.14 (1.40-6.50) K/uL Lymph # (Auto) 1.16 L (1.20-3.40) K/uL Wake # (Auto) 0.42 (0.11-0.59) K/uL Eos # (Auto) 0.21 (0.00-0.50) K/uL Baso # (Auto) 0.04 (0.00-0.20) K/uL Immature Gran # (Auto) 0.02 (0.01-0.20) K/uL Sodium 140 (136-145) mmol/L Potassium 3.4 L (3.5-5.1) mmol/L Chloride 105 (98-107) mmol/L Carbon Dioxide 26 (21-32) mmol/L Anion Gap 9 (3-11) BUN 7 (6-23) mg/dl Creatinine 0.84 (0.6-1.4) mg/dl Est Cr Clr Drug Dosing 89.8 ml/min Est GFR ( Amer) 102.8 ml/min Est GFR (Non-Af Amer) 88.7 ml/min BUN/Creatinine Ratio 8.3 L (10-20) Glucose 105 H (70-99(Fasting)) mg/dl POC Glucose (70-99) mg/dl Calcium 8.5 L (8.6-10.3) mg/dl Phosphorus (2.5-4.9) mg/dl Magnesium 1.5 L (1.7-2.4) mg/dl Total Bilirubin 1.2 H (0.2-1.0) mg/dl Direct Bilirubin (0-0.2) mg/dl AST 21 (13-39) U/L ALT 18 (7-52) U/L Alkaline Phosphatase 121 H (34-104) U/L Total Protein 6.2 (6.0-8.3) gm/dl Albumin 3.6 (3.4-5.0) gm/dl Globulin 2.6 (2.5-4.0) gm/dl Albumin/Globulin Ratio 1.4 (0.9-2) Vitamin B12 (180-914) pg/ml Folate (>5.38) ng/ml TSH (0.300-4.500) uIu/ml Urine Color Urine Appearance (Clear) Urine pH (4.5-7.5) Ur Specific Valencia (1.000-1.030) Urine Protein (Negative) Urine Glucose (UA) (Negative) Urine Ketones (Negative) Urine Blood (Negative) Urine Nitrite (Negative) Urine Bilirubin (Negative) Urine Urobilinogen (Negative) Ur Leukocyte Esterase (Negative) Urine WBC (Auto) (0-5) /hpf Urine RBC (Auto) (0-2) /hpf U Hyaline Cast (Auto) (0-2) /lpf U Epithel Cells (Auto) (0-2) /hpf Urine Bacteria (Auto) (None Seen) Triple Phos Crystals (None Prsent) Diagnostic Findings KUB X-Ray 12/19/23 06:00 KUB HISTORY: eval bowel distention COMPARISON: KUB 12/18/2023. FINDINGS: The nasogastric tube remains within the stomach. The lung bases are clear. Severe gaseous distention of the colon persists. This is most pronounced within the sigmoid colon. Mildly dilated gas-filled loops of small bowel are also unchanged. No renal calculi. No ureteral calculi. No pneumoperitoneum or pneumatosis. IMPRESSION: 1. The nasogastric tube remains within the stomach. 2. Severe gaseous distention of the colon again noted. ACT 112: Negative or not required by law. Electronically signed by: Rd Ty M.D. 12/19/2023 10:48 AM PG Care Time/CCT Total # of Minutes Spent Total Time Spent with Patient: Total time spent is greater than 50% in coordination of care (as documented) at patient's floor/unit and/or counseling patient: Coding Level of Care Code 26054 SUB INP/OBS CARE 3/50MIN Diagnoses Abdominal distension R14.0 Diabetes mellitus, type 2 E11.9 Paraplegia G82.20
[2023-12-20] MEDS: CYANOCOBALAMIN 1000 MCG/ML VIAL IM SCH (08:54)
--- NOTE | 2023-12-20 11:05 | Gastroenterology Progress Note ---
Date of Service December 20, 2023 Assessment & Plan (1) Abdominal distension: Plan: He is having BMs now so hopefully will improve although clinically by exam does not seem to have changed much. If he could at least increase his mobility ie OOB to chair etc it may help some. Would repeat abdominal x-ray in the morning. Admission and Anticipated Discharge Date Admission Date: December 18, 2023 Subjective Patient states he is doing well. States had a number of large volume BMs yesterday. Physical Exam Constitutional: Afebrile VSS Respiratory: Lungs: Clear anteriorly Cardiovascular: Heart: Reg Gastrointestinal (Abdomen): Still distended but BS present and soft, nontender. Results & Data Results & Data Vital Signs (Past 12 Hours) Vital Signs Temp Pulse Pulse Resp BP Pulse Ox Pulse Ox 12/20/23 08:45 36.7 C 95 H 18 129/55 L 96 12/20/23 07:40 12/20/23 07:00 91 H 12/20/23 03:22 36.9 C 96 H 18 135/69 94 12/20/23 01:26 93 12/19/23 23:45 36.9 C 112 H 18 133/76 95 O2 Del Method O2 Del Method 12/20/23 08:45 Room Air 12/20/23 07:40 Room Air 12/20/23 07:00 12/20/23 03:22 Room Air 12/20/23 01:26 Room Air 12/19/23 23:45 Room Air PG Care Time/CCT Total # of Minutes Spent Total Time Spent with Patient: Total time spent is greater than 50% in coordination of care (as documented) at patient's floor/unit and/or counseling patient: Coding Level of Care Code 67883 SUB INP/OBS CARE 1/25MIN Diagnoses Abdominal distension R14.0
--- NOTE | 2023-12-20 12:45 | Surgery Progress Note ---
<Statement entered by Heriberto Aleman, DO - 12/20/23 13:45> I have seen and examined this patient with the surgical [employer]. I agree with this assessment. Please re-consult should there be further concerns. Date of Service December 20, 2023 Assessment & Plan (1) Large bowel obstruction: Plan: patient tolerating diet thus far , can advance + BM VSS , no abd complaints Colonic distention likely chronic, no acute surgical intervention indicated General surgery will sign off at this time, call with questions / concerns Patient seen and examined with Dr. Aleman Admission and Anticipated Discharge Date Admission Date: December 18, 2023 Subjective tolerating clears + Bm , denies abd pain Review of Systems Constitutional: no fever and no chills Respiratory: no dyspnea Cardiovascular: no chest pain Gastrointestinal: + bloating; no abdominal pain, no nausea and no vomiting Physical Exam Constitutional: cooperative and comfortable; no acute distress Respiratory: normal respiratory effort and able to speak in complete s entences; no respiratory distress Cardiovascular: Rate/Rhythm: regular rate Gastrointestinal (Abdomen): Inspection/Auscultation: + abdomen distended Percussion/Palpation: abdomen soft; abdomen nontender Results & Data Vital Signs (Past 12 Hours) Vital Signs Temp Pulse Pulse Resp BP Pulse Ox Pulse Ox 12/20/23 12:00 97.3 F L 83 18 128/73 96 12/20/23 08:45 98.1 F 95 H 18 129/55 L 96 12/20/23 07:40 12/20/23 07:00 91 H 12/20/23 03:22 98.4 F 96 H 18 135/69 94 12/20/23 01:26 93 O2 Del Method O2 Del Method 12/20/23 12:00 Room Air 12/20/23 08:45 Room Air 12/20/23 07:40 Room Air 12/20/23 07:00 12/20/23 03:22 Room Air 12/20/23 01:26 Room Air PG Care Time/CCT Total # of Minutes Spent Total Time Spent with Patient: Total time spent is greater than 50% in coordination of care (as documented) at patient's floor/unit and/or counseling patient: Coding Level of Care Code 70332 SUB INP/OBS CARE 07/03MIN Diagnoses Large bowel obstruction K56.609
--- NOTE | 2023-12-20 13:34 | XRay Report ---
KUB CLINICAL HISTORY: Colonic distention. FINDINGS: 3, portable, supine views of the abdomen are compared to study dated 12/19/2023 and correlat ed with abdominal CT dated 12/17/2023. An enteric tube has been removed. Marked gaseous distention of the colon persists. No evidence of intraperitoneal free air is identified on these supine images. Gal lstones are seen in the right upper quadrant. There are low lung volumes with bibasilar atelectasis. The skeletal structures are osteopenic and appear intact. Spondylotic change is noted in the spine. IMPRESSION: 1. An enteric tube has been placed as above. 2. Again seen is severe gaseous distention of the colon. This is similar to prior examinations, and w hen correlated with the recent CT scan could represent a colonic ileus or less likely sigmoid volvulu s or distal colonic stricture/obstruction. Electronically signed by: Dick Castro M.D. 12/20/2023 1:32 PM
[2023-12-20] MEDS ORDERED: Nursing to Pharmacy Communication SCH (13:45)
[2023-12-20] MEDS: INSULIN ASPART PER UNIT CHARGE SC SCH (17:49)
[2023-12-21] MEDS: MoRPHine SULFATE 2 MG/ML CARP IV PRN (00:15)
[2023-12-21 07:10] LABS: Basophils # (auto) 0.03 K/uL (0.00-0.20); Basophils % (auto) 0.6 %; Eosinophils # (auto) 0.18 K/uL (0.00-0.50); Eosinophils % (auto) 3.5 %; Hematocrit (blood only) 33.8 % (42.0-52.0); Hemoglobin 11.6 g/dl (14.0-18.0); Immature Granulocytes # (auto) 0.02 K/uL (0.01-0.20); Immature Granulocytes % (auto) 0.4 %; Lymphocytes # (auto) 1.68 K/uL (1.20-3.40); Lymphocytes % (auto) 32.5 %; Mean Corpuscular Hemoglobin 31.1 pg (25.0-34.0); Mean Corpuscular Hgb Conc 34.3 g/dL (32.0-36.0); Mean Corpuscular Volume 90.6 fL (80.0-100.0); Monocytes # (auto) 0.42 K/uL (0.11-0.59); Monocytes % (auto) 8.1 %; Neutrophils # (auto) 2.84 K/uL (1.40-6.50); Neutrophils % (auto) 54.9 %; Platelet Count 182 K/uL (130-400); RDW Coefficient of Variation 13.5 % (11.5-14.5); RDW Standard Deviation 44.5 fL (36.4-46.3); Red Blood Count 3.73 M/uL (4.70-6.10); White Blood Count 5.17 K/ul (4.8-10.8)
[2023-12-21 07:33] LABS: Carcinoembryonic Antigen 14.1 ng/ml (0-2.5)
[2023-12-21 07:44] LABS: Albumin Globulin Ratio 1.4 (0.9-2); Albumin Level 3.3 gm/dl (3.4-5.0); BUN Creatinine Ratio 6.1 (10-20); Bilirubin,Total 0.9 mg/dl (0.2-1.0); Calcium 8.1 mg/dl (8.6-10.3); Est GFR (African American) 103.8 ml/min; Est GFR (Non-African American) 89.6 ml/min; Globulin 2.4 gm/dl (2.5-4.0); Magnesium 1.7 mg/dl (1.7-2.4); Potassium 3.4 mmol/L (3.5-5.1); Total Protein 5.7 gm/dl (6.0-8.3)
[2023-12-21 07:46] LABS: Vitamin D, 25 Hydrox 83.6 ng/ml (30-100)
--- NOTE | 2023-12-21 08:02 | XRay Report ---
KUB HISTORY: Abdominal distension COMPARISON: KUB 12/20/2023. FINDINGS: The lung bases are clear. Gaseous distention of the colon has slightly improved. Mildly dil ated gas-filled loops of small bowel persist. No renal calculi. No ureteral calculi. No pneumoperito neum or pneumatosis. IMPRESSION: Slight improvement in the gaseous distention of the colon. ACT 112: Negative or not required by law. Electronically signed by: Rd Ty M.D. 12/21/2023 7:59 AM
--- NOTE | 2023-12-21 08:41 | Hospitalist Progress Note ---
Date of Service December 21, 2023 Assessment & Plan (1) Abdominal distension: Plan: Patient is a 68 yo M w/ a PMHx of CP, paraplegia, spina bifida, T2DM, diabetic ulcers of the feet b/l, chronic diarrhea/chronic constipation w/ overflow incontinence, sacral pressure ulcer, HTN, hyponatremia, VIKY with CKD3, who presents to the [facility] ED due to increased abdominal distention associated w/ increased episodes of diarrhea since December 13. Does have hx +cdiff toxin 2021 previous admission for SBO, history of neurogenic bowel, resolved with conservative care 10/30 presents with concern for bowel obstruction and possible mass seen on CT in colon history of constipation and overflow diarrhea, prehospital on Linzess and senna- docusate both on hold , most recent colonoscopy 09/17/22 with poor prep unable to have complete visualization eval by surgery and distension improved/moving bowels w/ tid suppository and ok for removal NG and trial clears. Feels institutional in nature in interim patient removed his NG himself, tolerating oral intake with escalation Cdiff added given reports diarrhea [employer] and prior hx cdiff 2021 speech eval also placed given issues at [facility].->Aspiration precautions added loose dentures maybe playing a role in eating chewing UA obtained, cx pending. Suprapubic catheter was exchanged in the past 30 days w/ Dr Perez, is draining but having some sediment/chunks Home propranolol resumed Consulted PT to see about trying to improve ambulation. Activity ordered OOB w/ assistance in meantime as doesn't appear we are getting him up which isn't helping B12 259, will give some IM replacement (2) Diabetes mellitus, type 2: Plan: Placed glargine 10 on hold while NPO given lower BSGs and tight coverage. Improvement in BSGs and now advancing diet and will resume glargine 10 for tonight/adjust as needed Has diabetic ulcer of both feet poa has had chronic issues with non healing ulcers arterial Doppler performed as cool left foot with delayed cap refill, doppler No arterial occlusion or evidence of high-grade stenosis. 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 Hold off lasix for now to prevent dehydration off IVF HLD- hold atorvastatin for now Insomnia - hold tramadol for now, could be making constipation issues worse and doesn't seem to be having much issues overnight pulse ox for tonight as snoring in room Code status: DNR/DNI DVT Prophylaxis: Heparin SQ added given no plans for scope in patient not very mobile Dispo: advancing diet as outlined, KUB pending. monitor for cdiff, f/u urine cx Appreciate GI/general surgery. Hopefully would be able to consider flex sig this upcoming week to eval for underlying malignancy/mass? *prior CTAP w/ transition point near ileocecal valve Admission and Anticipated Discharge Date Admission Date: December 18, 2023 Subjective Patient feels well. States he had 3 BMs yesterday and tolerating solid food. is not awake will require nocturnal oxygen, did have sleep study overnight pt is also swallowing without issues at the present, speech did re see and no issues Physical Exam Physical Exam: awake and alert normo active bowel sounds, distended not tender, is tympanitic ext with some color change no issues lungs are clear with exception of diminished at bases Results & Data Results & Data Vital Signs (Past 12 Hours) Vital Signs Temp Pulse Pulse Pulse Resp BP BP 12/21/23 07:28 97.7 F 74 18 151/86 H 12/21/23 07:20 12/21/23 07:00 61 12/21/23 05:01 76 12/21/23 03:10 97.7 F 66 16 111/63 12/21/23 02:10 12/21/23 01:08 12/20/23 22:17 98.1 F 67 18 116/46 L 12/20/23 22:13 62 Pulse Ox Pulse Ox Pulse Ox O2 Del Method O2 Del Method O2 Del Method 12/21/23 07:28 98 Room Air 12/21/23 07:20 Room Air 12/21/23 07:00 12/21/23 05:01 99 Room Air 12/21/23 03:10 95 Room Air 12/21/23 02:10 97 Room Air 12/21/23 01:08 97 Room Air 12/20/23 22:17 97 Room Air 12/20/23 22:13 Laboratory Results reviewed cbc and chemistry PG Care Time/CCT Total # of Minutes Spent Total Time Spent with Patient: Total time spent is greater than 50% in coordination of care (as documented) at patient's floor/unit and/or counseling patient: Coding Level of Care Code 72728 SUB INP/OBS CARE 2/35MIN Diagnoses Abdominal distension R14.0 Diabetes mellitus, type 2 E11.9 Paraplegia G82.20
--- NOTE | 2023-12-21 09:51 | Gastroenterology Progress Note ---
Date of Service December 21, 2023 Assessment & Plan (1) Abdominal distension: Plan: Likely chronic. His KUB shows slight improvement today and so far he is tolerating solid diet. Appreciate surgical input. Likely should be on chronic stool softeners and prn laxatives but would give laxative if he does not have a BM in 48+hrs IP GI Service will sign off. Admission and Anticipated Discharge Date Admission Date: December 18, 2023 Subjective Patient feels well. States he had 3 BMs yesterday and tolerating solid food. Physical Exam Constitutional: Afebrile VSS Respiratory: Lungs: Clear anteriorly Cardiovascular: Heart: Reg Gastrointestinal (Abdomen): Abd: Distended but soft. NL BS Results & Data Results & Data Vital Signs (Past 12 Hours) Vital Signs Temp Pulse Pulse Pulse Resp BP BP 12/21/23 07:28 36.5 C 74 18 151/86 H 12/21/23 07:20 12/21/23 07:00 61 12/21/23 05:01 76 12/21/23 03:10 36.5 C 66 16 111/63 12/21/23 02:10 12/21/23 01:08 12/20/23 22:17 36.7 C 67 18 116/46 L 12/20/23 22:13 62 Pulse Ox Pulse Ox Pulse Ox O2 Del Method O2 Del Method O2 Del Method 12/21/23 07:28 98 Room Air 12/21/23 07:20 Room Air 12/21/23 07:00 12/21/23 05:01 99 Room Air 12/21/23 03:10 95 Room Air 12/21/23 02:10 97 Room Air 12/21/23 01:08 97 Room Air 12/20/23 22:17 97 Room Air 12/20/23 22:13 PG Care Time/CCT Total # of Minutes Spent Total Time Spent with Patient: Total time spent is greater than 50% in coordination of care (as documented) at patient's floor/unit and/or counseling patient: Coding Level of Care Code 40631 SUB INP/OBS CARE 1/25MIN Diagnoses Abdominal distension R14.0
--- NOTE | 2023-12-22 13:46 | Discharge Summary ---
Discharge Summary Date of Service December 22, 2023 Principal Dx & Hospital Course #1 = Principal Diagnosis (1) Abdominal distension: Patient is a 68 yo M w/ a PMHx of CP, paraplegia, spina bifida, T2DM, diabetic ulcers of the feet b/l, chronic diarrhea/chronic constipation w/ overflow incontinence, sacral pressure ulcer, HTN, hyponatremia, VIKY with CKD3, who presents to the [facility] due to increased abdominal distention associated w/ increased episodes of diarrhea since December 13. Does have hx +cdiff toxin 2021 previous admission for SBO, history of neurogenic bowel, resolved with conservative care 10/30 presents with concern for bowel obstruction and possible mass seen on CT in colon Ultimately felt to have Olgivies like colonic pseudo obstruction , most recent colonoscopy 09/17/22 with poor prep unable to have complete visualization, would recommend attempt at repeat outpt with attention to robust gi prep eval by surgery and distension improved/moving bowels, need to assure good bowel movement daily C diff gene negative speech eval feels pt is safe to eat with good swallowing hygene and deliberate attention and bite sized foods Suprapubic catheter was exchanged in the past 30 days w/ Dr Perez, is draining but having some sediment/chunks Home propranolol resumed B12 259, will given some IM replacement, may need ongoing repletion (2) Diabetes mellitus, type 2: Placed glargine 10 continue sliding scale as transitions to diet at snf Has diabetic ulcer of both feet poa has had chronic issues with non healing ulcers arterial Doppler performed as cool left foot with delayed cap refill, doppler No arterial occlusion or evidence of high-grade stenosis. currently not on antibiotics continued good attention to wound care and pressure reduction (3) Paraplegia: History of Cerebal palsy and spina bifida, typically cared for in SNF, Neuromuscular dysfunction of bladder with chronic suprapubic cath without issue of infection, presents with chronic sacral wound Plan Chronic problems HTN- BP stable 128/73 RESUMED propranolol 120mg daily losartan restart HLD- atorvastatin Insomnia - hold tramadol for now, could be making constipation issues worse and doesn't seem to be having much issues overnight pulse ox for tonight as snoring in room Code status: DNR/DNI Notes For Next Care Provider need to assure good bowel movements and schedule outpt colonoscopy attention to sliding scale and basal rate as transitions to CC diet consider monthly b12 and follow levels, initial level was low normal 259 (180- 914) Admission HPI Per Admitting Provider Patient is a 68 yo M w/ a PMHx of CP, paraplegia, spina bifida, T2DM, diabetic ulcers of the feet b/l, chronic diarrhea/chronic constipation w/ overflow incontinence, sacral pressure ulcer, HTN, hyponatremia, elevated serum creatinine who presents to the [facility] due to increased abdominal distention associated w/ increased episodes of diarrhea since December 13. Patient specifically denies AP, N/V as well as no CP or palpitations, no SOB or chest congestion. He does endorse acute on chronic diarrhea (acute of 4 days), acute worsening abdominal distention, and a chronic dry cough of ~ 1 year. Discharge Exam awake and alert, seen with family still has some abdominal distension, non tender Updated Medication List Medication Instructions Recorded Confirmed Type blood-glucose meter (OneTouch #1 ea 11/05/18 02/19/23 History Verio Meter) cholecalciferol (vitamin D3) 25 3,000 units PO DAILY 11/05/18 12/17/23 History mcg (1,000 unit) tablet Wheelchair (Manual) #1 ea 04/01/19 02/19/23 Rx diaper,brief,adult,disposable #48 ea 06/30/19 02/19/23 Rx blood sugar diagnostic (OneTouch #100 ea 04/10/20 02/19/23 Rx Ultra Blue Test Strip) acetaminophen 325 mg capsule 650 mg PO Q6H PRN PAIN/FEVER 09/09/22 12/17/23 History (Tylenol) linaclotide 72 mcg capsule 72 mcg PO .TUES,THURS,SUN 07/15/23 12/17/23 History (Linzess) constipation propranolol 120 mg capsule,24 120 mg PO QAM 07/15/23 12/17/23 History hr,extended release (Inderal LA) sennosides 8.6 mg-docusate sodium 1 tab-cap PO QAM 10/14/23 12/17/23 History 50 mg tablet (Senokot-S) pantoprazole 40 mg tablet,delayed 40 mg PO AMHS 11/10/23 12/17/23 History release (Protonix) insulin aspart U-100 100 unit/mL 1 sliding scale dose SC ACHS #10 mL 12/22/23 Rx subcutaneous solution (Novolog U-100 Insulin aspart) insulin glargine 100 unit/mL (3 10 unit (0.1 mL) subcut HS #0 mL 12/22/23 12/17/23 Rx mL) subcutaneous pen (Basaglar KwikPen U-100 Insulin) Hospital Stay Data Consultations 12/17/23 22:47 ED Decision to Admit Stat 12/18/23 00:28 Consult General Surgery Stat 12/18/23 01:09 Consult Gastroenterology Routine Diagnostic Imagining Performed 12/17/23 20:05 CT abd pelvis wo con Stat 12/18/23 01:09 US doppler leg [US arterial duplex LE BI] Routine Pending Results Patient Have Any Pending Studies at Discharge: No Discharge Instructions Given to Patient (Per Discharging Provider) GI evaluated the patient and the feels 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 There was discussion on initial CT scan of possible mass in colon, GI medicine did not feel it was imperative to do a colonoscopy while inpatient. Patient did have good bowel movements in response to enemas and laxatives. Patient likely may benefit from an outpatient colonoscopy to evaluate this possible mass. While inpatient the patient was evaluated by speech therapy and he was able to masticate and swallow food of the dental soft bite-size variety. Total Time Total Time Spent Total Time Spent (In Minutes): It required greater than 30 minutes to prepare this patient for discharge. Coding Level of Care Code 98135 INP/OBS DISCH >30 MIN Diagnoses Abdominal distension R14.0 Diabetes mellitus, type 2 E11.9 Paraplegia G82.20
== END 2023-12-22 11:24 | DRG 392 ==
LOC: ED 19:53 → EDINP 12-18 00:22 → SUATTDRO 12-18 00:22 → 2W 12-18 01:10

== ENCOUNTER 2024-04-26 18:36 | Inpatient (IN) ==
[2024-04-26 19:02] LABS: Basophils # (auto) 0.05 K/uL (0.00-0.20); Basophils % (auto) 0.5 %; Eosinophils # (auto) 0.26 K/uL (0.00-0.50); Eosinophils % (auto) 2.4 %; Hematocrit (blood only) 42.3 % (42.0-52.0); Hemoglobin 14.8 g/dl (14.0-18.0); Immature Granulocytes # (auto) 0.04 K/uL (0.01-0.20); Immature Granulocytes % (auto) 0.4 %; Mean Corpuscular Hemoglobin 31.3 pg (25.0-34.0); Mean Corpuscular Volume 89.4 fL (80.0-100.0); Mean Platelet Volume 8.9 fL (9.4-12.4); Monocytes # (auto) 0.79 K/uL (0.11-0.59); Monocytes % (auto) 7.4 %; Neutrophils # (auto) 7.93 K/uL (1.40-6.50); Neutrophils % (auto) 74.3 %; Platelet Count 233 K/uL (130-400); RDW Coefficient of Variation 14.4 % (11.5-14.5); RDW Standard Deviation 46.2 fL (36.4-46.3); Red Blood Count 4.73 M/uL (4.70-6.10); White Blood Count 10.67 K/ul (4.8-10.8)
[2024-04-26 19:15] LABS: Appearance Urine Turbid (Clear); Bacteria Urine Automated 4+ (None Seen); Bilirubin Urine Negative (Negative); Blood Urine Negative (Negative); Color Urine Yellow; Epithelial Cell Urine Auto 0-2 /hpf (0-2); Glucose Urine UA Negative (Negative); Ketones Urine Negative (Negative); Leukocyte Esterase Urine 3+ (Negative); Nitrite Urine Negative (Negative); Protein Urine 1+ (Negative); RBC Urine Automated 0-2 /hpf (0-2); Specific Gravity Urine 1.011 (1.000-1.030); Urobilinogen Urine Negative (Negative); WBC Urine Automated >50 /hpf (0-5)
[2024-04-26 19:16] LABS: Cast Urine Automated 0-2 /lpf (0-2)
[2024-04-26 19:20] LABS: Albumin Globulin Ratio 1.2 (0.9-2); Albumin Level 4.1 gm/dl (3.4-5.0); BUN Creatinine Ratio 13.1 (10-20); Bilirubin,Total 1.2 mg/dl (0.2-1.0); Calcium 9.4 mg/dl (8.6-10.3); Creatinine Clr Calc Pharmacy 72.4 ml/min; Globulin 3.3 gm/dl (2.5-4.0); Potassium 3.7 mmol/L (3.5-5.1); Total Protein 7.4 gm/dl (6.0-8.3)
[2024-04-26] MEDS: OPTIRAY 320 100ml IV ONE (19:32)
[2024-04-26 19:36] LABS: Magnesium 1.6 mg/dl (1.7-2.4)
--- NOTE | 2024-04-26 19:36 | Emergency Department Note ---
Impression & Plan Abdominal distension, Colon distention, Acute pyelonephritis, Intellectual disability, Hypomagnesemia ED Provider Note NAME: MARCELLUS KIRKPATRICK AGE: 68 SEX: M : 1955 ARRIVES VIA: Ambulance INFORMANT: [Patient][ems] ED PROVIDER(S): [Dick Lemon MD] CHIEF COMPLAINT: Possible obstruction HISTORY OF PRESENT ILLNESS: The patient is a 68-year-old male with cerebral palsy. He has a suprapubic catheter. 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 He has had previous bowel obstructions. He had diarrhea all day today and he had some increased abdominal distention. He was thought to possibly have a bowel obstruction, he was sent for evaluation. The patient denies any abdominal pain. He does admit to the diarrhea. No nausea or vomiting. PMHx/PSHx/Social Hx: See Below PHYSICAL EXAM: GENERAL: Patient is in no acute distress. HEENT: No acute trauma, normocephalic atraumatic, mucous membranes moist, no nasal congestion. NECK: No stridor, no adenopathy, no meningismus, trachea is midline. LUNGS: Clear to auscultation bilaterally, no wheeze, no rhonchi, breath sounds equal. HEART: Without murmurs gallops or rubs, regular rate and rhythm. ABDOMEN: Distended firm abdomen, tympany with percussion, no real tenderness. Suprapubic catheter noted. EXTREMITIES: No cyanosis. NEUROLOGIC: Awake and alert. SKIN: No jaundice, no diaphoresis. DIFFERENTIAL DIAGNOSIS: Bowel obstruction, volvulus, ileus, colitis, diverticulitis, among others. EMERGENCY DEPARTMENT PROCEDURES: MEDICAL DECISION MAKING: There is no leukocytosis or concerning anemia. There is a normal platelet count. No renal failure. Magnesium somewhat low at 1.6. No concerning liver enzyme elevation. No evidence for pancreatitis. Urinalysis shows evidence for infection, culture is pending. Chest x-ray did not show pneumonia or free air. KUB shows significant colonic distention. Abdominal and pelvis CT shows a colonic ileus, no bowel obstruction or acute surgical process. On exam, the patient had a distended abdomen with tympany to percussion. He was not toxic or febrile. Patient was given IV magnesium for the lower magnesium value. I did speak with general surgery, no acute surgical intervention required at this point. Medical management was advised. A GI consult was advised. Given his findings and presentation, hospitalization is warranted. I did speak with the patient and case management, the on-call hospitalist was consulted. Certainly, the patient may have a pyelonephritis which has led to his colonic ileus. He has had some resistant UTIs in the past. For now, I am deferring to the hospitalist to decide on antibiotic therapy. Prior/Outside records/notes reviewed: Today's EMS notes describing his presentation and transport to this hospital. Imaging/x-ray results per my interpretation: KUB shows significant large bowel distention. Chest x-ray does not show pneumonia or free air. Chronic Medical/Social conditions affecting care: Advanced age, history of cerebral palsy. Care/Management discussed with: General Surgery-Dr. Deleon. Case management and the on-call hospitalist. Level of care consideration(s): After review of the information above and other included data: --I believe the patient requires escalation of care to admission DISPOSITION: Admission Past Med/Surg History Problem List (Updated 04/26/24 @ 21:08 by Dick Lemon MD) Hypomagnesemia (Acute) Intellectual disability (Acute) Acute pyelonephritis (Acute) Colon distention (Acute) Abdominal distension (Acute) History of obstruction of large intestine Carpal tunnel syndrome, right Cervical radicular pain Bladder calculus Obstructed suprapubic catheter Chronic constipation with overflow incontinence Diarrhea Diabetes mellitus, type 2 Neuromuscular dysfunction of bladder Cough Encounter for pre-operative examination Hypokalemia VIKY (acute kidney injury) Acute dehydration (Acute) Infected pressure ulcer (Acute) Acute renal failure (Acute) Leukocytosis (Acute) Generalized weakness (Acute) Acute anemia (Acute) Cellulitis of right leg Constipation Skin tear of elbow without complication (Acute) Abrasion of knee, bilateral (Acute) Diabetic ulcer of right foot (Acute) Diabetic ulcer of left foot (Acute) Foot pain, right Clubfoot of right lower extremity Wound of right foot Gross hematuria Urinary retention Indwelling Hernandez catheter present Traumatic wound Pressure injury of sacral region, stage 2 (Acute) Paraplegia (Chronic) Acute confusion (Acute) Tachycardia (Acute) Discharge planning issues DVT prophylaxis Dehydration (Acute) DNR (do not resuscitate) Metabolic encephalopathy (Acute) UTI (urinary tract infection) due to urinary indwelling catheter (Acute) Acute UTI (urinary tract infection) (Acute) Sepsis (Acute) Spina bifida (Chronic) Cerebral palsy (Chronic) History of macrocytic anemia Hypertension Hyponatremia Tachypnea Elevated serum creatinine Complicated UTI (urinary tract infection) Weakness Cellulitis of left leg (Acute) Spina bifida (Chronic) Macrocytic anemia Catheter-associated urinary tract infection (Acute) Abdominal distension (gaseous) (Chronic) Hyperlipidemia Anemia Diabetes (Chronic) UTI (urinary tract infection) (Acute) Cerebral palsy Sepsis associated hypotension (Acute) Cellulitis of left lower extremity (Acute) Balanitis (Acute) Altered mental status (Acute) Dehydration (Acute) HTN (hypertension) (Chronic) Medical History Spina bifida Paraplegia Esophagitis Abdominal distension hx chronic intermittent abdominal distention History of cellulitis hx left lower extremity/recurrent cellulitis. History of sepsis Balanitis History of tachycardia Right club foot Cerebral palsy Hypertension Type 2 diabetes mellitus History of small bowel obstruction 10/2023 Cognitive communication deficit Acute kidney failure, unspecified Muscle weakness (generalized) Enterocolitis due to Clostridium difficile, recurrent onset 10/2021 Hyperlipidemia Benign prostatic hyperplasia with lower urinary tract symptoms Hx: UTI (urinary tract infection) complicated uti noted on faxed info. PVD (peripheral vascular disease) did not observe on faxed info. History of COVID-19 07/2022 Anemia hx macrocytic anemia Unspecified intellectual disabilities half-way resident Suprapubic catheter Heart disease Per residential records Patient's sister (HIPAA contact) denies Surgical History Presence of urogenital implants S/P cystoscopy History of colonoscopy History of esophagogastroduodenoscopy (EGD) Presence of cardiac and vascular implant and graft Family History Mother Peripheral vascular disease Other Cancer Diabetes Heart disease Hypertension Denies family history of Ovarian cancer Prostate cancer Myocardial infarction Breast cancer Colorectal cancer Social History Smoking Status: Never smoker Tobacco Type: Cigarettes Hx Alcohol Use: No Hx Substance Use: No Preferred Language: Maldivian Communication Ability: Effective Visual Impairment: No Limitations Hearing Ability: Hard of Hearing 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 Beliefs That Will Affect Care: None marital status: Single Current Living Situation: [facility] Current Living Situation Comment: [facility] current occupational status: disabled Feels Safe at Home: Yes Diet: regular caffeine: Yes during the past year weight has: remained stable Dental Care, Regularly: No Physical Activity Frequency: Does not Exercise Seatbelt Use: never Assistive Devices: Mechanical Lift and Wheelchair Allergies Allergies Allergy/AdvReac Type Severity Reaction Status Date / Time lisinopril Allergy Unknown Unknown Verified 04/12/24 10:06 sulfamethoxazole AdvReac Unknown Nausea Verified 04/12/24 10:06 [From Bactrim] trimethoprim [From Bactrim] AdvReac Unknown Nausea Verified 04/12/24 10:06 Home Meds Home Medications Medication Instructions Recorded Confirmed blood-glucose meter (Annexonuch #1 ea 11/05/18 04/12/24 Verio Meter) cholecalciferol (vitamin D3) 25 3,000 units PO DAILY 11/05/18 04/12/24 mcg (1,000 unit) tablet acetaminophen 325 mg capsule 650 mg PO Q6H PRN PAIN/FEVER 09/09/22 04/12/24 (Tylenol) linaclotide 72 mcg capsule 72 mcg PO .TUES,THURS,SUN 07/15/23 04/12/24 (Linzess) constipation propranolol 120 mg capsule,24 120 mg PO QAM 07/15/23 04/12/24 hr,extended release (Inderal LA) sennosides 8.6 mg-docusate sodium 1 tab-cap PO QAM 10/14/23 04/12/24 50 mg tablet (Senokot-S) pantoprazole 40 mg tablet,delayed 40 mg PO AMHS 11/10/23 04/12/24 release (Protonix) atorvastatin 20 mg tablet 20 mg PO DAILY 02/26/24 04/12/24 bisacodyl 10 mg rectal suppository 10 mg GA DAILY PRN 02/26/24 04/12/24 (Dulcolax (bisacodyl)) cyanocobalamin (vitamin B-12) 100 mcg IM MONTHLY 02/26/24 04/12/24 1,000 mcg/mL injection kit magnesium hydroxide 400 mg/5 mL 5 ml PO DAILY PRN 02/26/24 04/12/24 oral suspension (Milk of Magnesia) Previous Rx's Medication Instructions Recorded Wheelchair (Manual) #1 ea 04/01/19 diaper,brief,adult,disposable #48 ea 06/30/19 blood sugar diagnostic (OneTouch #100 ea 04/10/20 Ultra Blue Test Strip) insulin aspart U-100 100 unit/mL 1 sliding scale dose SC ACHS #10 mL 12/22/23 subcutaneous solution (Novolog U-100 Insulin aspart) insulin glargine 100 unit/mL (3 10 unit (0.1 mL) subcut HS #0 mL 12/22/23 mL) subcutaneous pen (Basaglar KwikPen U-100 Insulin) citric ac 1980.6 mg-glucono 59.4 30 ml intravesical TID #900 mL 02/11/24 mg-mag carb 980.4 mg/30 mL irrig.soln (Renacidin) peg 3350-sod sulf,gwomd-xii-dro See Rx Instructions PO .COMPLEX #2 04/20/24 178.7-7.3-0.5-1.12-0.9 gram oral mL soln (Suflave) Results & Data (ED) Vital Signs Vital Signs - 24 hr 04/26/24 18:40 04/26/24 18:43 04/26/24 18:45 Temperature 36.6 C Temperature Source Temporal Artery Scan Pulse Rate 78 83 Pulse Rate [Apical] 79 Pulse Rate from SpO2 Sensor Respiratory Rate 20 26 H Respiratory Effort / Characteristics Non-Labored Non-Labored Respiratory Depth Normal Normal Blood Pressure 163/95 H Blood Pressure [Right Arm] 163/95 H Blood Pressure Mean 117 Blood Pressure Mean [Right Arm] 117 Pulse Oximetry 95 96 Oxygen Delivery Method Room Air Room Air Sepsis Recent Fever Within 48 Hours No Sepsis New/Unexplained Change in Mental Status No Sepsis Action Taken by Nursing No Action Required 04/26/24 18:45 04/26/24 19:00 04/26/24 19:42 Temperature Temperature Source Pulse Rate 80 76 Pulse Rate [Apical] Pulse Rate from SpO2 Sensor 79 76 Respiratory Rate 16 20 Respiratory Effort / Characteristics Respiratory Depth Blood Pressure 149/78 H 132/88 Blood Pressure [Right Arm] Blood Pressure Mean 113 102 Blood Pressure Mean [Right Arm] Pulse Oximetry 95 97 96 Oxygen Delivery Method Room Air Room Air Room Air Sepsis Recent Fever Within 48 Hours Sepsis New/Unexplained Change in Mental Status Sepsis Action Taken by Nursing 04/26/24 20:00 Temperature Temperature Source Pulse Rate 75 Pulse Rate [Apical] Pulse Rate from SpO2 Sensor 75 Respiratory Rate 22 Respiratory Effort / Characteristics Respiratory Depth Blood Pressure 123/78 Blood Pressure [Right Arm] Blood Pressure Mean 93 Blood Pressure Mean [Right Arm] Pulse Oximetry 95 Oxygen Delivery Method Room Air Sepsis Recent Fever Within 48 Hours Sepsis New/Unexplained Change in Mental Status Sepsis Action Taken by [facility] Medications Current Medication List: was personally reviewed by me Laboratory Data Attestation: I reviewed the patient's lab results. 04/26/24 18:46 04/26/24 18:46 Lab Results 04/26/24 Range/Units 18:46 WBC 10.67 (4.8-10.8) K/ul RBC 4.73 (4.70-6.10) M/uL Hgb 14.8 (14.0-18.0) g/dl Hct 42.3 (42.0-52.0) % MCV 89.4 (80.0-100.0) fL MCH 31.3 (25.0-34.0) pg MCHC 35.0 (32.0-36.0) g/dL RDW Std Deviation 46.2 (36.4-46.3) fL RDW Coeff of Renée 14.4 (11.5-14.5) % Plt Count 233 (130-400) K/uL MPV 8.9 L (9.4-12.4) fL Immature Gran % (Auto) 0.4 % Neut % (Auto) 74.3 % Lymph % (Auto) 15.0 % [place] % (Auto) 7.4 % Eos % (Auto) 2.4 % Baso % (Auto) 0.5 % Neut # (Auto) 7.93 H (1.40-6.50) K/uL Lymph # (Auto) 1.60 (1.20-3.40) K/uL [place] # (Auto) 0.79 H (0.11-0.59) K/uL Eos # (Auto) 0.26 (0.00-0.50) K/uL Baso # (Auto) 0.05 (0.00-0.20) K/uL Immature Gran # (Auto) 0.04 (0.01-0.20) K/uL Sodium 137 (136-145) mmol/L Potassium 3.7 (3.5-5.1) mmol/L Chloride 102 (98-107) mmol/L Carbon Dioxide 29 (21-32) mmol/L Anion Gap 6 (3-11) BUN 13 (6-23) mg/dl Creatinine 0.99 (0.6-1.4) mg/dl Est Cr Clr Drug Dosing 72.4 ml/min eGFR 81.95 BUN/Creatinine Ratio 13.1 (10-20) Glucose 210 H (70-99(Fasting)) mg/dl Calcium 9.4 (8.6-10.3) mg/dl Magnesium 1.6 L (1.7-2.4) mg/dl Total Bilirubin 1.2 H (0.2-1.0) mg/dl AST 14 (13-39) U/L ALT 17 (7-52) U/L Alkaline Phosphatase 114 H (34-104) U/L Total Protein 7.4 (6.0-8.3) gm/dl Albumin 4.1 (3.4-5.0) gm/dl Globulin 3.3 (2.5-4.0) gm/dl Albumin/Globulin Ratio 1.2 (0.9-2) Lipase 29 (11-82) U/L Urine Color Yellow Urine Appearance Turbid A (Clear) Urine pH 8.0 H (4.5-7.5) Ur Specific [place] 1.011 (1.000-1.030) Urine Protein 1+ H (Negative) Urine Glucose (UA) Negative (Negative) Urine Ketones Negative (Negative) Urine Blood Negative (Negative) Urine Nitrite Negative (Negative) Urine Bilirubin Negative (Negative) Urine Urobilinogen Negative (Negative) Ur Leukocyte Esterase 3+ H (Negative) Urine WBC (Auto) >50 H (0-5) /hpf Urine RBC (Auto) 0-2 (0-2) /hpf U Hyaline Cast (Auto) 0-2 (0-2) /lpf U Epithel Cells (Auto) 0-2 (0-2) /hpf Urine Bacteria (Auto) 4+ H (None Seen) Administered Medications Discontinued Medications Magnesium Sulfate/Dextrose (Magnesium Sulfate / D5w) 1 gm in 100 mls @ 100 mls/hr IV NOW STA Stop: 04/26/24 20:41 Last Infusion: 04/26/24 20:48 Dose: Infused Documented By: Admin: 04/26/24 19:45 Dose: 100 mls/hr Documented By: GUY Ioversol (Optiray 320 100ml) 91 ml IV ONCE ONE Stop: 04/26/24 19:33 Last Admin: 04/26/24 19:32 Dose: 91 ml Documented By: GES Imaging Data Radiologist's Impression: Abdomen/Pelvis CT 04/26/24 19:13 Exam(s): CT ABDOMEN + PELVIS With Contrast IV Amt: 91 cc opti 320 EXAM: CT Abdomen and Pelvis With Intravenous Contrast CLINICAL HISTORY: Reason for exam: abd pain, poss obstruc. TECHNIQUE: Axial computed tomography images of the abdomen and pelvis with intravenous contrast. CTDI is 26 mGy and DLP is 1438 mGy-cm. Automated exposure control was utilized for the study. A dose lowering technique was utilized adhering to the principles of ALARA. CONTRAST: Patient received 91 cc opti 320 of IV contrast COMPARISON: CT abdomen pelvis 12/17/2023 FINDINGS: ABDOMEN: Liver: Unremarkable. Gallbladder and bile ducts: Contracted gallbladder containing stones. Pancreas: Unremarkable. Spleen: Unremarkable. Adrenals: Unremarkable. Kidneys and ureters: Mild hydronephrosis in the left kidney with a focus of decreased cortical enhancement in the medial cortex consistent with acute pyelonephritis. Stomach and bowel: Redemonstrated diffuse gaseous distention of the colon. Sigmoid colon massively distended up to 16.5 cm. No obstruction or evidence of volvulus. The appearance is suggestive of colonic ileus. PELVIS: Appendix: No findings to suggest acute appendicitis. Bladder: Suprapubic Hernandez catheter. Inflamed thick-walled bladder containing stones. Reproductive: Unremarkable as visualized. ABDOMEN and PELVIS: Intraperitoneal space: Unremarkable. No free air. No significant fluid collection. Bones/joints: No acute fracture. Soft tissues: Unremarkable. Vasculature: Unremarkable. Lymph nodes: Unremarkable. IMPRESSION: 1. Redemonstrated diffuse gaseous distention of the colon. Sigmoid colon massively distended up to 16.5 cm. No obstruction or evidence of volvulus. The appearance is suggestive of colonic ileus. 2. Suprapubic Hernandez catheter. Inflamed thick-walled bladder containing stones. 3. Mild hydronephrosis in the left kidney with a focus of decreased cortical enhancement in the medial cortex consistent with acute pyelonephritis. Electronically signed by: Ty Petersen MD 04/26/24 20:28 PM Discharge Plan Visit Data Chief Complaint: Abdominal Pain Stated Complaint: AB PAIN ED Provider: Dick Lemon Discharge Problem: Abdominal distension, Colon distention, Acute pyelonephritis, Intellectual disability, Hypomagnesemia Patient Disposition: Admitted As Inpatient Condition: Fair Forms Stand Alone Forms: [facility] Prescriptions Prescriptions: No Action (DME) Wheelchair (Manual) Device See Dose Instructions .ROUTE .MEDSUPPLY Qty: 1 0RF Dose Instruction: As directed Rx Instructions: Wheelchair Repair (DME) diaper,brief,adult,disposable Misc See Dose Instructions .ROUTE .MEDSUPPLY Qty: 48 2RF Rx Instructions: As directed (DME) OneTouch Ultra Blue Test Strip Strip See Dose Instructions .ROUTE .MEDSUPPLY Qty: 100 5RF Dose Instruction: As directed Rx Instructions: Test once a day Suflave 178.7-7.3-0.5 gram recon soln See Rx Instructions PO .COMPLEX Qty: 2 0RF Rx Instructions: orally; orally; TAKE FIRST DOSE AT 6 PM AND SECOND DOSE 6 HOURS PRIOR TO PROCEDURE BIN: [id number] N: 2001 GROUP: [id number] (DME) blood-glucose meter [[place]Touch Verio Meter[place] [facility] [place] Dose Instructions .ROUTE .MEDSUPPLY Qty: 1 Rx Instructions: USE TO TEST 3-4 TIMES DAILY PRN cholecalciferol (vitamin D3) 1,000 unit tablet 3,000 units PO DAILY Renacidin 1,980.6 mg-59.4 mg-980.4mg/30mL solution 30 ml intravesical TID Qty: 900 5RF Rx Instructions: Instill 30 ml into bladder; clamp for 10 minutes, then remove clamp and drain bladder. Repeat 3 times daily. atorvastatin 20 mg tablet 20 mg PO DAILY magnesium hydroxide [Milk of Magnesia] 400 mg/5 mL suspension 5 ml PO DAILY PRN bisacodyl [Dulcolax (bisacodyl)] 10 mg suppository 10 mg GA DAILY PRN cyanocobalamin (vitamin B-12) 1,000 mcg/mL kit 100 mcg IM MONTHLY acetaminophen [Tylenol] 325 mg Capsule 650 mg PO Q6H PRN (Reason: PAIN/FEVER) propranolol [Inderal LA] 120 mg Capsule,Extended Release 24 Hr 120 mg PO QAM Kim 72 mcg capsule 72 mcg PO .NUNUBRYAN RM Patient Comments: Silke Levine, Bryan - administer 30 min before meal Rx Instructions: one time daily , , friday...ADMINISTER 30 MIN BEFORE MEAL sennosides-docusate sodium [Senokot-S] 8.6-50 mg Tablet 1 tab-cap PO QAM Rx Instructions: HOLD FOR LOOSE STOOLS insulin aspart U-100 [Novolog U-100 Insulin aspart] 100 unit/mL Solution 1 sliding scale dose SC ACHS Qty: 10 0RF Rx Instructions: --Goal BSG Range: Low 110 mg/dL, High 160 mg/dL --Correction Factor: 20 mg/dL/unit --Carbohydrate ratio = 10 g/unit --BSGs ACHS if eating, q6h if npo insulin glargine [Basaglar KwikPen U-100 Insulin] 100 unit/mL (3 mL) Insulin Pen 10 unit SUBCUT HS Qty: 0 0RF pantoprazole [Protonix] 40 mg Tablet,Delayed Release (Dr/Ec) 40 mg PO AMHS Referrals Referrals: [facility] [Non-Staff] -
[2024-04-26] MEDS: MAGNESIUM SULFATE / D5W 1 GM/100 ML BAG IV STA (19:45)
--- NOTE | 2024-04-26 20:29 | CT Scan Report ---
Exam(s): CT ABDOMEN + PELVIS With Contrast IV Amt: 91 cc opti 320 EXAM: CT Abdomen and Pelvis With Intravenous Contrast CLINICAL HISTORY: Reason for exam: abd pain, poss obstruc. TECHNIQUE: Axial computed tomography images of the abdomen and pelvis with intravenous contrast. CTDI is 26 mGy and DLP is 1438 mGy-cm. Automated exposure control was utilized for the study. A dose lowering technique was utilized adhering to the principles of ALARA. CONTRAST: Patient received 91 cc opti 320 of IV contrast COMPARISON: CT abdomen pelvis 12/17/2023 FINDINGS: ABDOMEN: Liver: Unremarkable. Gallbladder and bile ducts: Contracted gallbladder containing stones. Pancreas: Unremarkable. Spleen: Unremarkable. Adrenals: Unremarkable. Kidneys and ureters: Mild hydronephrosis in the left kidney with a focus of decreased cortical enhancement in the medial cortex consistent with acute pyelonephritis. Stomach and bowel: Redemonstrated diffuse gaseous distention of the colon. Sigmoid colon massively distended up to 16.5 cm. No obstruction or evidence of volvulus. The appearance is suggestive of colonic ileus. PELVIS: Appendix: No findings to suggest acute appendicitis. Bladder: Suprapubic Hernandez catheter. Inflamed thick-walled bladder containing stones. Reproductive: Unremarkable as visualized. ABDOMEN and PELVIS: Intraperitoneal space: Unremarkable. No free air. No significant fluid collection. Bones/joints: No acute fracture. Soft tissues: Unremarkable. Vasculature: Unremarkable. Lymph nodes: Unremarkable. IMPRESSION: 1. Redemonstrated diffuse gaseous distention of the colon. Sigmoid colon massively distended up to 16.5 cm. No obstruction or evidence of volvulus. The appearance is suggestive of colonic ileus. 2. Suprapubic Hernandez catheter. Inflamed thick-walled bladder containing stones. 3. Mild hydronephrosis in the left kidney with a focus of decreased cortical enhancement in the medial cortex consistent with acute pyelonephritis. Electronically signed by: Ty Petersen MD 04/26/24 20:28 PM
--- NOTE | 2024-04-26 21:37 | History & Physical Report ---
Date of Service April 26, 2024 Assessment & Plan (1) 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: (2) Acute pyelonephritis: (3) Urinary tract infection associated with indwelling urethral catheter: (4) Abdominal distension: (5) Hypomagnesemia: (6) Intellectual disability: (7) Diabetes mellitus, type 2: (8) Cerebral palsy: (9) Spina bifida: Plan 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- NPO NSS + KCl 20 mill equivalents 80 mL/h x 2 L No indication for NG tube at this time Hemoccult stool negative Consult general surgery, who has seen the patient in the emergency department Left-sided pyelonephritis/catheter associated UTI- History of multidrug-resistant Pseudomonas aeruginosa, providencia and Proteus Placed on ceftaz 2 g IV every 8 hours Give a one-time dose of ceftriaxone this evening, in effort to avoid using aminoglycosides Consult infectious disease Diabetes mellitus- Reduce glargine from 30 to 15 units subcu at bedtime Hold standard dosing of NovoLog Placed on Accu-Cheks with NovoLog SSI History of Present Illness Chief Complaint: The patient presents to the emergency department with complaint of diarrhea all day, increasing abdominal distention, and concern regarding history of previous bowel obstructions. Primary Care Provider: Chuck Traylor III, MD The patient is a 68-year-old male with a past medical history including intellectual disability, history of large intestine obstruction, history of obstructed suprapubic catheter, diabetes mellitus type 2, neurogenic bladder, acute renal failure, diabetic ulcers of feet, indwelling Hernandez catheter associated UTIs, multidrug-resistant UTIs, paraplegia, spina bifida, cerebral palsy, and hypertension. Patient presents to the emergency department with development of diarrhea all day prior to arrival, and increasing abdominal distention. Allergies Allergy/AdvReac Type Severity Reaction Status Date / Time lisinopril Allergy Unknown Unknown Verified 04/12/24 10:06 sulfamethoxazole AdvReac Unknown Nausea Verified 04/12/24 10:06 [From Bactrim] trimethoprim [From Bactrim] AdvReac Unknown Nausea Verified 04/12/24 10:06 Home Medications Medication Instructions Recorded Confirmed Type blood-glucose meter (OneTouch #1 ea 11/05/18 04/12/24 History Verio Meter) cholecalciferol (vitamin D3) 25 3,000 units PO DAILY 11/05/18 04/26/24 History mcg (1,000 unit) tablet Wheelchair (Manual) #1 ea 04/01/19 04/12/24 Rx diaper,brief,adult,disposable #48 ea 06/30/19 04/12/24 Rx blood sugar diagnostic (OneTouch #100 ea 04/10/20 04/12/24 Rx Ultra Blue Test Strip) linaclotide 72 mcg capsule 72 mcg PO 3XWK constipation 07/15/23 04/26/24 History (Linzess) propranolol 120 mg capsule,24 120 mg PO QAM 07/15/23 04/26/24 History hr,extended release (Inderal LA) sennosides 8.6 mg-docusate sodium 1 tab-cap PO QAM 10/14/23 04/26/24 History 50 mg tablet (Senokot-S) insulin aspart U-100 100 unit/mL 1 sliding scale dose SC ACHS #10 mL 12/22/23 04/26/24 Rx subcutaneous solution (Novolog U-100 Insulin aspart) citric ac 1980.6 mg-glucono 59.4 30 ml intravesical TID #900 mL 02/11/24 04/26/24 Rx mg-mag carb 980.4 mg/30 mL irrig.soln (Renacidin) atorvastatin 20 mg tablet 20 mg PO DAILY 02/26/24 04/26/24 History bisacodyl 10 mg rectal suppository 10 mg WV DAILY PRN Constipation 02/26/24 04/26/24 History (Dulcolax (bisacodyl)) cyanocobalamin (vitamin B-12) 100 mcg IM MONTHLY 02/26/24 04/26/24 History 1,000 mcg/mL injection kit magnesium hydroxide 400 mg/5 mL 0 ml PO DAILY PRN Constipation 02/26/24 04/26/24 History oral suspension (Milk of Magnesia) acetaminophen 325 mg tablet 650 mg PO Q6H PRN Pain/Fever 04/26/24 04/26/24 History (Tylenol) benzonatate 100 mg capsule 200 mg PO TID PRN Cough 04/26/24 04/26/24 History dextromethorphan HBr 10 mg/5 mL 10 mg PO QID PRN Cough 04/26/24 04/26/24 History oral liquid insulin glargine 100 unit/mL (3 30 unit subcut HS 04/26/24 04/26/24 History mL) subcutaneous pen (Basaglar KwikPen U-100 Insulin) ipratropium 0.5 mg-albuterol 3 mg 3 ml inhalation QID cough 04/26/24 04/26/24 History (2.5 mg base)/3 mL nebulization soln magnesium chloride 64 mg 64 mg PO QAM 04/26/24 04/26/24 History tablet,extended release nystatin 100,000 unit/gram topical 1 applic topical BID 04/26/24 04/26/24 History cream sodium phosphates 19 gram-7 118 ml WV DAILY PRN Constipation 04/26/24 04/26/24 History gram/118 mL enema (Fleet Enema) Past Med/Surg History Problem List (Updated 04/26/24 @ 23:14 by Brett Landaverde MD) Urinary tract infection associated with indwelling urethral catheter 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 Hypomagnesemia (Acute) Intellectual disability (Acute) Acute pyelonephritis (Acute) Colon distention (Acute) Abdominal distension (Acute) History of obstruction of large intestine Carpal tunnel syndrome, right Cervical radicular pain Bladder calculus Obstructed suprapubic catheter Chronic constipation with overflow incontinence Diarrhea Diabetes mellitus, type 2 Neuromuscular dysfunction of bladder Cough Encounter for pre-operative examination Hypokalemia VIKY (acute kidney injury) Acute dehydration (Acute) Infected pressure ulcer (Acute) Acute renal failure (Acute) Leukocytosis (Acute) Generalized weakness (Acute) Acute anemia (Acute) Cellulitis of right leg Constipation Skin tear of elbow without complication (Acute) Abrasion of knee, bilateral (Acute) Diabetic ulcer of right foot (Acute) Diabetic ulcer of left foot (Acute) Foot pain, right Clubfoot of right lower extremity Wound of right foot Gross hematuria Urinary retention Indwelling Hernandez catheter present Traumatic wound Pressure injury of sacral region, stage 2 (Acute) Paraplegia (Chronic) Acute confusion (Acute) Tachycardia (Acute) Discharge planning issues DVT prophylaxis Dehydration (Acute) DNR (do not resuscitate) Metabolic encephalopathy (Acute) UTI (urinary tract infection) due to urinary indwelling catheter (Acute) Acute UTI (urinary tract infection) (Acute) Sepsis (Acute) Spina bifida (Chronic) Cerebral palsy (Chronic) History of macrocytic anemia Hypertension Hyponatremia Tachypnea Elevated serum creatinine Complicated UTI (urinary tract infection) Weakness Cellulitis of left leg (Acute) Spina bifida (Chronic) Macrocytic anemia Catheter-associated urinary tract infection (Acute) Abdominal distension (gaseous) (Chronic) Hyperlipidemia Anemia Diabetes (Chronic) UTI (urinary tract infection) (Acute) Cerebral palsy Sepsis associated hypotension (Acute) Cellulitis of left lower extremity (Acute) Balanitis (Acute) Altered mental status (Acute) Dehydration (Acute) HTN (hypertension) (Chronic) Medical History Spina bifida Paraplegia Esophagitis Abdominal distension hx chronic intermittent abdominal distention History of cellulitis hx left lower extremity/recurrent cellulitis. History of sepsis Balanitis History of tachycardia Right club foot Cerebral palsy Hypertension Type 2 diabetes mellitus History of small bowel obstruction 10/2023 Cognitive communication deficit Acute kidney failure, unspecified Muscle weakness (generalized) Enterocolitis due to Clostridium difficile, recurrent onset 10/2021 Hyperlipidemia Benign prostatic hyperplasia with lower urinary tract symptoms Hx: UTI (urinary tract infection) complicated uti noted on faxed info. PVD (peripheral vascular disease) did not observe on faxed info. History of COVID-19 07/2022 Anemia hx macrocytic anemia Unspecified intellectual disabilities prison resident Suprapubic catheter Heart disease Per jail records Patient's sister (HIPAA contact) denies Surgical History Presence of urogenital implants S/P cystoscopy cystolithopaxy w/ replacement suprapubic cath History of colonoscopy History of esophagogastroduodenoscopy (EGD) Presence of cardiac and vascular implant and graft Noted in jail records with the associated date 2015, [facility] at [facility]- no evidence of cardiac or vascular implant/graft noted at that time- no further details per available jail records Patient's sister (Maribeth, HIPAA contact) denies Family History Mother Peripheral vascular disease Other Cancer Diabetes Heart disease Hypertension Denies family history of Ovarian cancer Prostate cancer Myocardial infarction Breast cancer Colorectal cancer Social History Smoking Status: Never smoker Tobacco Type: Cigarettes Hx Alcohol Use: No Hx Substance Use: No Preferred Language: Yi Communication Ability: Effective Visual Impairment: No Limitations Hearing Ability: Hard of Hearing Cad Specialist Required: No Beliefs That Will Affect Care: None marital status: Single Current Living Situation: Care Home Current Living Situation Comment: [facility] current occupational status: disabled Feels Safe at Home: Yes Diet: regular caffeine: Yes during the past year weight has: remained stable Dental Care, Regularly: No Physical Activity Frequency: Does not Exercise Seatbelt Use: never Assistive Devices: Mechanical Lift and Wheelchair Review of Systems Review of Systems: The patient denies chest pain, palpitations, shortness of breath, dyspnea on exertion, cough, lower extremity swelling, sore throat, fevers, chills, sweats, vomiting, blood in urine or stool, lightheadedness, dizziness, headache, memory loss, loss of consciousness, rash, abnormal bruising or bleeding, focal or generalized weakness, numbness or tingling in arms, generalized arthralgias or myalgias, back or neck pain, or night sweats. The review of systems is otherwise negative other than for that already noted above, and at least 10 systems have been reviewed. Physical Exam Physical Exam: The patient is awake, alert and oriented 3, well developed and well nourished, normocephalic and atraumatic, lying in bed and in no acute distress. HEENT--PERRL, EOMI, mucous membranes and oropharynx mildly dry. Neck--supple. No JVD. No bruits. Thyroid normal, trachea midline, no adenopathy. Heart--normal S1 and S2. No murmurs, rubs or gallops. Lungs--clear bilaterally, no respiratory distress, no accessory muscle use. Abdomen--normal bowel sounds, moderately distended and tympanitic Extremities--No edema. Dermatologic--normal skin turgor, normal color, no abnormal lymph nodes, no rash. Neurologic--cranial nerves II through XII grossly intact. Rheumatologic--paraplegia Psychiatric--normal affect. Results & Data Results & Data Vital Signs (Past 12 Hours) Vital Signs Temp Pulse Pulse Resp BP BP Pulse Ox 04/26/24 21:30 71 21 134/97 96 04/26/24 21:00 72 23 126/78 95 04/26/24 20:33 74 21 143/82 H 96 04/26/24 20:00 75 22 123/78 95 04/26/24 19:42 76 20 132/88 96 04/26/24 19:00 80 16 149/78 H 97 04/26/24 18:45 95 04/26/24 18:45 79 26 H 163/95 H 96 04/26/24 18:43 83 04/26/24 18:40 36.6 C 78 20 163/95 H 95 O2 Del Method 04/26/24 21:30 Room Air 04/26/24 21:00 Room Air 04/26/24 20:33 Room Air 04/26/24 20:00 Room Air 04/26/24 19:42 Room Air 04/26/24 19:00 Room Air 04/26/24 18:45 Room Air 04/26/24 18:45 Room Air 04/26/24 18:43 04/26/24 18:40 Room Air Laboratory Results Laboratory Results WBC 10.67 K/ul (4.8-10.8) 04/26/24 18:46 RBC 4.73 M/uL (4.70-6.10) 04/26/24 18:46 Hgb 14.8 g/dl (14.0-18.0) 04/26/24 18:46 Hct 42.3 % (42.0-52.0) 04/26/24 18:46 MCV 89.4 fL (80.0-100.0) 04/26/24 18:46 MCH 31.3 pg (25.0-34.0) 04/26/24 18:46 MCHC 35.0 g/dL (32.0-36.0) 04/26/24 18:46 RDW Std Deviation 46.2 fL (36.4-46.3) 04/26/24 18:46 RDW Coeff of Renée 14.4 % (11.5-14.5) 04/26/24 18:46 Plt Count 233 K/uL (130-400) 04/26/24 18:46 MPV 8.9 fL (9.4-12.4) L 04/26/24 18:46 Immature Gran % (Auto) 0.4 % 04/26/24 18:46 Neut % (Auto) 74.3 % 04/26/24 18:46 Lymph % (Auto) 15.0 % 04/26/24 18:46 Williamson % (Auto) 7.4 % 04/26/24 18:46 Eos % (Auto) 2.4 % 04/26/24 18:46 Baso % (Auto) 0.5 % 04/26/24 18:46 Neut # (Auto) 7.93 K/uL (1.40-6.50) H 04/26/24 18:46 Lymph # (Auto) 1.60 K/uL (1.20-3.40) 04/26/24 18:46 Williamson # (Auto) 0.79 K/uL (0.11-0.59) H 04/26/24 18:46 Eos # (Auto) 0.26 K/uL (0.00-0.50) 04/26/24 18:46 Baso # (Auto) 0.05 K/uL (0.00-0.20) 04/26/24 18:46 Immature Gran # (Auto) 0.04 K/uL (0.01-0.20) 04/26/24 18:46 Sodium 137 mmol/L (136-145) 04/26/24 18:46 Potassium 3.7 mmol/L (3.5-5.1) 04/26/24 18:46 Chloride 102 mmol/L (98-107) 04/26/24 18:46 Carbon Dioxide 29 mmol/L (21-32) 04/26/24 18:46 Anion Gap 6 (3-11) 04/26/24 18:46 BUN 13 mg/dl (6-23) 04/26/24 18:46 Creatinine 0.99 mg/dl (0.6-1.4) 04/26/24 18:46 Est Cr Clr Drug Dosing 72.4 ml/min 04/26/24 18:46 eGFR 81.95 04/26/24 18:46 BUN/Creatinine Ratio 13.1 (10-20) 04/26/24 18:46 Glucose 210 mg/dl (70-99(Fasting)) H 04/26/24 18:46 POC Glucose 197 mg/dl (70-99) H 04/26/24 21:43 Calcium 9.4 mg/dl (8.6-10.3) 04/26/24 18:46 Magnesium 1.6 mg/dl (1.7-2.4) L 04/26/24 18:46 Total Bilirubin 1.2 mg/dl (0.2-1.0) H 04/26/24 18:46 AST 14 U/L (13-39) 18 18:46 ALT 17 U/L (7-52) 04/26/24 18:46 Alkaline Phosphatase 114 U/L (34-104) H 04/26/24 18:46 Total Protein 7.4 gm/dl (6.0-8.3) 04/26/24 18:46 Albumin 4.1 gm/dl (3.4-5.0) 04/26/24 18:46 Globulin 3.3 gm/dl (2.5-4.0) 04/26/24 18:46 Albumin/Globulin Ratio 1.2 (0.9-2) 04/26/24 18:46 Lipase 29 U/L (11-82) 04/26/24 18:46 Urine Color Yellow 04/26/24 18:46 Urine Appearance Turbid (Clear) A 04/26/24 18:46 Urine pH 8.0 (4.5-7.5) H 04/26/24 18:46 Ur Specific [place] 1.011 (1.000-1.030) 04/26/24 18:46 Urine Protein 1+ (Negative) H 04/26/24 18:46 Urine Glucose (UA) Negative (Negative) 04/26/24 18:46 Urine Ketones Negative (Negative) 04/26/24 18:46 Urine Blood Negative (Negative) 04/26/24 18:46 Urine Nitrite Negative (Negative) 04/26/24 18:46 Urine Bilirubin Negative (Negative) 04/26/24 18:46 Urine Urobilinogen Negative (Negative) 04/26/24 18:46 Ur Leukocyte Esterase 3+ (Negative) H 04/26/24 18:46 Urine WBC (Auto) >50 /hpf (0-5) H 04/26/24 18:46 Urine RBC (Auto) 0-2 /hpf (0-2) 04/26/24 18:46 U Hyaline Cast (Auto) 0-2 /lpf (0-2) 04/26/24 18:46 U Epithel Cells (Auto) 0-2 /hpf (0-2) 04/26/24 18:46 Urine Bacteria (Auto) 4+ (None Seen) H 04/26/24 18:46 Impressions Chest X-Ray 04/26/24 18:45 Exam(s): XR CXR 1 VIEW EXAM: XR Chest, 1 View CLINICAL HISTORY: Reason for exam: abd pain. TECHNIQUE: Frontal view of the chest. COMPARISON: Chest x-ray 10/14/2023 FINDINGS: Lungs: Lungs are hypoinflated. No grossly evident consolidation or interstitial edema. Pleural space: No pleural effusion. No pneumothorax. Heart: Heart appears enlarged which is likely accentuated by technique. IMPRESSION: No acute findings in the chest. Electronically signed by: Ty Petersen MD 04/26/24 21:35 PM KUB X-Ray 04/26/24 18:45 Exam(s): XR KUB EXAM: XR Abdomen, 1 View CLINICAL HISTORY: Reason for exam: abd pain. TECHNIQUE: Frontal supine view of the abdomen/pelvis. COMPARISON: Same-day CT abdomen pelvis and x-ray 12/21/2023 FINDINGS: Gastrointestinal tract: Diffuse gaseous distention of the colon with marked dilatation. Moderate stool in the rectum. IMPRESSION: Diffuse gaseous distention of the colon with marked dilatation. Moderate stool in the rectum. Electronically signed by: Ty Petersen MD 04/26/24 21:39 PM Abdomen/Pelvis CT 04/26/24 19:13 Exam(s): CT ABDOMEN + PELVIS With Contrast IV Amt: 91 cc opti 320 EXAM: CT Abdomen and Pelvis With Intravenous Contrast CLINICAL HISTORY: Reason for exam: abd pain, poss obstruc. TECHNIQUE: Axial computed tomography images of the abdomen and pelvis with intravenous contrast. CTDI is 26 mGy and DLP is 1438 mGy-cm. Automated exposure control was utilized for the study. A dose lowering technique was utilized adhering to the principles of ALARA. CONTRAST: Patient received 91 cc opti 320 of IV contrast COMPARISON: CT abdomen pelvis 12/17/2023 FINDINGS: ABDOMEN: Liver: Unremarkable. Gallbladder and bile ducts: Contracted gallbladder containing stones. Pancreas: Unremarkable. Spleen: Unremarkable. Adrenals: Unremarkable. Kidneys and ureters: Mild hydronephrosis in the left kidney with a focus of decreased cortical enhancement in the medial cortex consistent with acute pyelonephritis. Stomach and bowel: Redemonstrated diffuse gaseous distention of the colon. Sigmoid colon massively distended up to 16.5 cm. No obstruction or evidence of volvulus. The appearance is suggestive of colonic ileus. PELVIS: Appendix: No findings to suggest acute appendicitis. Bladder: Suprapubic Hernandez catheter. Inflamed thick-walled bladder containing stones. Reproductive: Unremarkable as visualized. ABDOMEN and PELVIS: Intraperitoneal space: Unremarkable. No free air. No significant fluid collection. Bones/joints: No acute fracture. Soft tissues: Unremarkable. Vasculature: Unremarkable. Lymph nodes: Unremarkable. IMPRESSION: 1. Redemonstrated diffuse gaseous distention of the colon. Sigmoid colon massively distended up to 16.5 cm. No obstruction or evidence of volvulus. The appearance is suggestive of colonic ileus. 2. Suprapubic Hernandez catheter. Inflamed thick-walled bladder containing stones. 3. Mild hydronephrosis in the left kidney with a focus of decreased cortical enhancement in the medial cortex consistent with acute pyelonephritis. Electronically signed by: Ty Petersen MD 04/26/24 20:28 PM Code Status & VTE Plan Code Status DNR/DNI VTE Prophylaxis Plan VTE Prophylaxis will be ordered: Yes PG Care Time/CCT Total # of Minutes Spent Total Time Spent with Patient: Total time spent is greater than 50% in coordination of care (as documented) at patient's floor/unit and/or counseling patient: Coding Level of Care Code 32212 INT INP/OBS CARE 3/75MIN Diagnoses 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 K56.0 Acute pyelonephritis N10 Urinary tract infection associated with indwelling urethral catheter T83.511A; N39.0 Abdominal distension R14.0 Hypomagnesemia E83.42 Intellectual disability F79 Diabetes mellitus, type 2 E11.9 Cerebral palsy G80.9 Spina bifida Q05.9
--- NOTE | 2024-04-26 21:40 | XRay Report ---
Exam(s): XR KUB EXAM: XR Abdomen, 1 View CLINICAL HISTORY: Reason for exam: abd pain. TECHNIQUE: Frontal supine view of the abdomen/pelvis. COMPARISON: Same-day CT abdomen pelvis and x-ray 12/21/2023 FINDINGS: Gastrointestinal tract: Diffuse gaseous distention of the colon with marked dilatation. Moderate stool in the rectum. IMPRESSION: Diffuse gaseous distention of the colon with marked dilatation. Moderate stool in the rectum. Electronically signed by: Ty Petersen MD 04/26/24 21:39 PM
--- NOTE | 2024-04-26 22:13 | Surgery Consultation ---
Date of Consultation April 26, 2024 Assessment & Plan (1) Colon distention: I discussed with the treating emergency room physician the patient is being admitted on the hospitalist service. From surgery perspective we recommend the following: Present time the patient does not have an acute abdomen that necessitates any surgical intervention It appears as though the patient's current clinical presentation is consistent with what was noted at the time of his most recent admission in December where he was noted to have a chronic distention of his colon Would recommend obtaining a GI consult for further recommendations regarding this issue If patient develops any nausea or vomiting an NG tube may need to be considered for the present time it does not appear as though this is needed At the time of my interview the patient was resting comfortably in bed he was nontoxic-appearingas he is afebrile and normotensive without tachycardia or fever Additional recommendations will be forthcoming based on his clinical course as unfolds Supervising Physician Co-Signing Physician Notes Patient discussed with Dar haney overnight, labs and imaging reviewed, agree with above. Admitted for colon distention in the setting of chronic colonic inertia and diarrhea. Admitted by medicine, no surgical intervention indicated overnight. For full assessment and plan, see today's progress note. History of Present Illness Reason for Consultation: Colonic ileus History of Present Illness This is a 68-year-old male who has history of cerebral palsy and underlying paraplegia. He was sent to the emergency department from his care facility as the patient was having diarrhea as well as some increased abdominal distention. There is concern the patient may have had a bowel obstruction so he was sent to the emergency department. Patient specifically denies any abdominal pain. He denies any nausea or vomiting. He denies any back or flank pain. He does note that he has been having loose bowel movements/diarrhea for most of the day. He denies any fevers, shakes, or chills. Of note the patient was admitted to the hospital at [facility] in December of this year. During this time the patient was noted to have concern for large bowel obstruction. He did not require any surgical intervention at this time and is felt the patient was likely suffering from chronic colonic distention. Since arrival hospital patient has had labs and imaging which I independent reviewed. Chest x-ray showed no evidence of pneumonia. A KUB was performed that showed diffuse gaseous distention of the colon with marked dilatation. A CT scan of the abdomen pelvis was performed that showed diffuse gaseous distention of the colon with massively noted distention of the sigmoid colon with no evidence of obstruction or volvulus; interpreting radiologist felt that this likely represented a colonic ileus. There is mild hydronephrosis of the left kidney with concern for acute pyelonephritis. Labs included a CBC were white blood cell count, hemoglobin, hematocrit, and platelet count were all normal. Chemistry profile showed sodium and potassium as well as the BUN and creatinine were normal. Urinalysis showed turbid urine with 3+ leukocyte Estrace and greater than 50 white blood cells per high-power field as well as 4+ bacteria. At the time my interview he was resting comfortably in bed he was no distress. Allergies Allergy/AdvReac Type Severity Reaction Status Date / Time lisinopril Allergy Unknown Unknown Verified 04/12/24 10:06 sulfamethoxazole AdvReac Unknown Nausea Verified 04/12/24 10:06 [From Bactrim] trimethoprim [From Bactrim] AdvReac Unknown Nausea Verified 04/12/24 10:06 Home Medications Medication Instructions Recorded Confirmed Type blood-glucose meter (OneTouch #1 ea 11/05/18 04/12/24 History Verio Meter) cholecalciferol (vitamin D3) 25 3,000 units PO DAILY 11/05/18 04/26/24 History mcg (1,000 unit) tablet Wheelchair (Manual) #1 ea 04/01/19 04/12/24 Rx diaper,brief,adult,disposable #48 ea 06/30/19 04/12/24 Rx blood sugar diagnostic (OneTouch #100 ea 04/10/20 04/12/24 Rx Ultra Blue Test Strip) linaclotide 72 mcg capsule 72 mcg PO 3XWK constipation 07/15/23 04/26/24 History (Linzess) propranolol 120 mg capsule,24 120 mg PO QAM 07/15/23 04/26/24 History hr,extended release (Inderal LA) sennosides 8.6 mg-docusate sodium 1 tab-cap PO QAM 10/14/23 04/26/24 History 50 mg tablet (Senokot-S) insulin aspart U-100 100 unit/mL 1 sliding scale dose SC ACHS #10 mL 12/22/23 04/26/24 Rx subcutaneous solution (Novolog U-100 Insulin aspart) citric ac 1980.6 mg-glucono 59.4 30 ml intravesical TID #900 mL 02/11/24 04/26/24 Rx mg-mag carb 980.4 mg/30 mL irrig.soln (Renacidin) atorvastatin 20 mg tablet 20 mg PO DAILY 02/26/24 04/26/24 History bisacodyl 10 mg rectal suppository 10 mg TN DAILY PRN Constipation 02/26/24 04/26/24 History (Dulcolax (bisacodyl)) cyanocobalamin (vitamin B-12) 100 mcg IM MONTHLY 02/26/24 04/26/24 History 1,000 mcg/mL injection kit magnesium hydroxide 400 mg/5 mL 0 ml PO DAILY PRN Constipation 02/26/24 04/26/24 History oral suspension (Milk of Magnesia) acetaminophen 325 mg tablet 650 mg PO Q6H PRN Pain/Fever 04/26/24 04/26/24 History (Tylenol) benzonatate 100 mg capsule 200 mg PO TID PRN Cough 04/26/24 04/26/24 History dextromethorphan HBr 10 mg/5 mL 10 mg PO QID PRN Cough 04/26/24 04/26/24 History oral liquid insulin glargine 100 unit/mL (3 30 unit subcut HS 04/26/24 04/26/24 History mL) subcutaneous pen (Basaglar KwikPen U-100 Insulin) ipratropium 0.5 mg-albuterol 3 mg 3 ml inhalation QID cough 04/26/24 04/26/24 History (2.5 mg base)/3 mL nebulization soln magnesium chloride 64 mg 64 mg PO QAM 04/26/24 04/26/24 History tablet,extended release nystatin 100,000 unit/gram topical 1 applic topical BID 04/26/24 04/26/24 History cream sodium phosphates 19 gram-7 118 ml TN DAILY PRN Constipation 04/26/24 04/26/24 History gram/118 mL enema (Fleet Enema) Patient History Medical History Spina bifida Paraplegia Esophagitis Abdominal distension hx chronic intermittent abdominal distention History of cellulitis hx left lower extremity/recurrent cellulitis. History of sepsis Balanitis History of tachycardia Right club foot Cerebral palsy Hypertension Type 2 diabetes mellitus History of small bowel obstruction 10/2023 Cognitive communication deficit Acute kidney failure, unspecified Muscle weakness (generalized) Enterocolitis due to Clostridium difficile, recurrent onset 10/2021 Hyperlipidemia Benign prostatic hyperplasia with lower urinary tract symptoms Hx: UTI (urinary tract infection) complicated uti noted on faxed info. PVD (peripheral vascular disease) did not observe on faxed info. History of COVID-19 07/2022 Anemia hx macrocytic anemia Unspecified intellectual disabilities [facility] resident Suprapubic catheter Heart disease Per group home records Patient's sister (HIPAA contact) denies Surgical History Presence of urogenital implants S/P cystoscopy cystolithopaxy w/ replacement suprapubic cath History of colonoscopy History of esophagogastroduodenoscopy (EGD) Presence of cardiac and vascular implant and graft Noted in group home records with the associated date 2015, patient was with [facility] PCP at that time- no evidence of cardiac or vascular implant/graft noted at that time- no further details per available group home records Patient's sister (Maribeth, HIPAA contact) denies Family History Mother Peripheral vascular disease Other Cancer Diabetes Heart disease Hypertension Denies family history of Ovarian cancer Prostate cancer Myocardial infarction Breast cancer Colorectal cancer Social History Smoking Status: Former smoker Tobacco Type: Cigarettes Hx Alcohol Use: No Hx Substance Use: No Preferred Language: Guyanese Communication Ability: Effective Visual Impairment: No Limitations Hearing Ability: Hard of Hearing 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: No Beliefs That Will Affect Care: None marital status: Single Current Living Situation: Care Home Current Living Situation Comment: [facility] current occupational status: disabled Feels Safe at Home: Yes Diet: regular caffeine: Yes during the past year weight has: remained stable Dental Care, Regularly: No Physical Activity Frequency: Does not Exercise Seatbelt Use: never Assistive Devices: Denture - Upper, Denture - Lower and Hearing Aid - Bilateral Review of Systems Review of Systems: All systems reviewed & are unremarkable except as noted in HPI & below Physical Exam Constitutional: WD/WN, vitals as above Eyes: no conjunctival abnormality ENMT: Ears: no hearing impairment and no external ear abnormality Mouth: no oropharynx abnormality Neck: trachea midline Respiratory: normal respiratory effort; no respiratory distress and no labored breathing Cardiovascular: Rate/Rhythm: regular rate and regular rhythm Gastrointestinal (Abdomen): Patient's abdomen is noted to be distended and tympanic to percussion. There is no rebound tenderness or guarding. There is no pain with palpation. With nursing supervisors present digital rectal exam was performed. The patient was noted to have normal sphincter tone. Stool was noted to be heme negative. I could not palpate any masses or stool in the rectal vault. Musculoskeletal: No calf tenderness Skin: no rashes Genitourinary: No CVA tenderness noted with percussion Results & Data Vital Signs (Past 12 Hours) Vital Signs Temp Pulse Pulse Resp BP BP Pulse Ox 04/26/24 22:00 71 23 143/82 H 97 04/26/24 21:30 71 21 134/97 96 04/26/24 21:00 72 23 126/78 95 04/26/24 20:33 74 21 143/82 H 96 04/26/24 20:00 75 22 123/78 95 04/26/24 19:42 76 20 132/88 96 04/26/24 19:00 80 16 149/78 H 97 04/26/24 18:45 95 04/26/24 18:45 79 26 H 163/95 H 96 04/26/24 18:43 83 04/26/24 18:40 36.6 C 78 20 163/95 H 95 O2 Del Method 04/26/24 22:00 Room Air 04/26/24 21:30 Room Air 04/26/24 21:00 Room Air 04/26/24 20:33 Room Air 04/26/24 20:00 Room Air 04/26/24 19:42 Room Air 04/26/24 19:00 Room Air 04/26/24 18:45 Room Air 04/26/24 18:45 Room Air 04/26/24 18:43 04/26/24 18:40 Room Air PG Care Time/CCT Total # of Minutes Spent Total Time Spent with Patient: Total time spent is greater than 50% in coordination of care (as documented) at patient's floor/unit and/or counseling patient: Coding Level of Care Code 88627 INT INP/OBS CARE 3/75MIN Diagnoses Colon distention K63.89
[2024-04-26] MEDS: cefTRIAXone SODIUM 2,000 MG/50 ML BAG IV STA (22:16)
[2024-04-26] MEDS: LANTUS PER UNIT CHARGE SQ STA (22:17)
[2024-04-26] MEDS: cefTAZidime 2,000 MG in DEXTROSE 5 % MINI-B 50 ML IV SCH (22:53)
[2024-04-26] MEDS: NSS + 20MEQ KCL 20 MEQ/1,000 ML BAG IV SCH (23:27)
[2024-04-27] MEDS ORDERED: GLUCOSE 40% GEL 15 GM TUBE PO PRN (00:28)
[2024-04-27] MEDS ORDERED: ONDANSETRON INJ 2 MG/ML 2 ML VIAL IV PRN (00:28)
[2024-04-27] MEDS ORDERED: GLUCOSE 10 TAB/TUBE PO PRN (00:28)
[2024-04-27] MEDS ORDERED: DEXTROSE 50% 50 ML SYRINGE IV PRN (00:28)
[2024-04-27] MEDS ORDERED: GLUCAGON FOR INJ 1 MG VIAL SQ PRN (00:28)
[2024-04-27] MEDS ORDERED: CARBOHYDRATES FOR HYPOGLYCEMIA PO PRN (00:28)
[2024-04-27] MEDS: INSULIN ASPART PER UNIT CHARGE SC SCH ×2 (06:17→20:44)
--- NOTE | 2024-04-27 07:15 | Hospitalist Progress Note ---
Date of Service April 27, 2024 Assessment & Plan (1) Acute pyelonephritis: (2) Type 2 diabetes mellitus: Plan Pt is a 68 yo male with a past medical hx of cerebral palsy, spina bifida, intellectual disability, DMT2, HTN, neurogenic bladder, diabetic foot ulcers, indwelling plunkett associated with multi-drug resistant UTIs, hx of obstructed suprapubic catheter, and hx of large intestine obstructions who presented to the hospital on 04/26 for diarrhea. Diarrhea, potentially overflow diarrhea - CT abd showed diffuse gaseous distention of the colon, no obstruction or volvulus - Hemoccult negative, does have hx of chronic diarrhea - gen surg consulted; no concerns from a surgery standpoint - GI consulted; pending - to start diet Left-sided pyelonephritis - CT abd showed mild L hydronephrosis and acute pyelonephritis, - History of multidrug-resistant Pseudomonas aeruginosa, providencia and Proteus - given 1 dose IV ceftriaxone, transitioned to cefepime pending sensitivities - given hx of multidrug resistance, ID consulted Diabetes mellitus - Reduce glargine from 30 to 15 units subcu at bedtime - Hold standard dosing of NovoLog - Placed on Accu-Cheks with NovoLog SSI VTE ppx: Lovenox Admission and Anticipated Discharge Date Admission Date: April 26, 2024 Supervising Physician Co-Signing Physician Notes I personally examined the patient and verified all ahmadi points of history and exa m, discussed case, and agree with decision making with Dr Martin and Lauren Pelayo MS2 feeling ok. had worse diarrhea superimposed on chronic diarrhea before. on directed questioning maybe had a little bit of urinary burning yesterday vitals noted nad heent nc at mmm abd soft mod distention but soft nt no guarding no rebound no rigidity dilated bowel/diarrhea - suspect chronic neurogenic bowel, a degree of distal constipation, overflow diarrhea. appreciate aviation consultant input. dulcolax for now, probably more aggressive bowel regimen after distal constipation resolved. agree may benefit from colorectal eval questionable pyelonephritis - no flank pain/nausea/vomiting/CVA tenderness, minimal but not negative lower urinary sx. treat, follow. DVT proph - lovenox otherwise as above Subjective Today, pt is states he is feeling okay. Denies abdominal pain, states last BM was last night. He states he is generally feeling better than when he got here. No nausea or vomiting this morning. No chest pain or SOB. Has had issues with diarrhea in the past but this episode he had many episodes of watery nonbloody stool with no visible blood yesterday that would not let up leading him to come in. He did not have any different foods compared to usually. He is on a permanent plunkett b/c neurogenic bladder. Review of Systems Review of Systems: Per HPI. Physical Exam Physical Exam: General:Alert, on breathing treatment at time of exam but no acute distress noted Cardio: Regular rate and rhythm, S1 S2. Resp:Lungs clear to auscultation b/l, no wheezes or rhonchi, GI: Soft and nontender, mild distention, bowel sounds active. No tenderness upon palpation. L-side of abd is more solid in feeling. Skin: Warm, pink, dry. Healing ulcerations on L foot. Some swelling in ankles, Results & Data Results & Data Vital Signs (Past 12 Hours) Vital Signs Temp Pulse Pulse Pulse Resp BP BP 04/27/24 03:07 35.9 C L 66 16 117/66 04/27/24 00:35 74 04/27/24 00:30 36.6 C 74 16 146/81 H 04/26/24 23:56 36.6 C 04/26/24 23:31 67 24 112/70 04/26/24 23:00 69 16 143/85 H 04/26/24 23:00 69 20 143/85 H 04/26/24 22:42 70 04/26/24 22:30 68 16 123/80 04/26/24 22:00 71 20 143/82 H 04/26/24 22:00 71 23 143/82 H 04/26/24 21:30 71 21 134/97 04/26/24 21:00 72 23 126/78 04/26/24 20:33 74 21 143/82 H 04/26/24 20:00 75 22 123/78 04/26/24 19:42 76 20 132/88 Pulse Ox O2 Del Method 04/27/24 03:07 100 Room Air 04/27/24 00:35 04/27/24 00:30 96 Room Air 04/26/24 23:56 04/26/24 23:31 98 Room Air 04/26/24 23:00 95 Room Air 04/26/24 23:00 97 Room Air 04/26/24 22:42 04/26/24 22:30 95 Room Air 04/26/24 22:00 96 Room Air 04/26/24 22:00 97 Room Air 04/26/24 21:30 96 Room Air 04/26/24 21:00 95 Room Air 04/26/24 20:33 96 Room Air 04/26/24 20:00 95 Room Air 04/26/24 19:42 96 Room Air Resident Activity Tracking Resident Involvement: Resident Care Provided Care Provided: Adult Hospital Medicine
[2024-04-27] MEDS: ALBUT/IPRATROP 3MG/0.5MG NEB 3 ML VIAL INH SCH (07:38)
[2024-04-27 07:39] LABS: Basophils # (auto) 0.05 K/uL (0.00-0.20); Basophils % (auto) 0.6 %; Eosinophils % (auto) 2.5 %; Hematocrit (blood only) 38.4 % (42.0-52.0); Hemoglobin 13.5 g/dl (14.0-18.0); Immature Granulocytes # (auto) 0.02 K/uL (0.01-0.20); Immature Granulocytes % (auto) 0.3 %; Lymphocytes # (auto) 1.54 K/uL (1.20-3.40); Lymphocytes % (auto) 19.3 %; Mean Corpuscular Hemoglobin 31.8 pg (25.0-34.0); Mean Corpuscular Hgb Conc 35.2 g/dL (32.0-36.0); Mean Corpuscular Volume 90.4 fL (80.0-100.0); Mean Platelet Volume 9.1 fL (9.4-12.4); Monocytes # (auto) 0.65 K/uL (0.11-0.59); Monocytes % (auto) 8.1 %; Neutrophils # (auto) 5.52 K/uL (1.40-6.50); Neutrophils % (auto) 69.2 %; Platelet Count 206 K/uL (130-400); RDW Coefficient of Variation 14.3 % (11.5-14.5); Red Blood Count 4.25 M/uL (4.70-6.10); White Blood Count 7.98 K/ul (4.8-10.8)
[2024-04-27 07:58] LABS: Albumin Globulin Ratio 1.2 (0.9-2); Albumin Level 3.6 gm/dl (3.4-5.0); BUN Creatinine Ratio 13.6 (10-20); Bilirubin,Total 0.8 mg/dl (0.2-1.0); Calcium 8.7 mg/dl (8.6-10.3); Creatinine Clr Calc Pharmacy 85.8 ml/min; Magnesium 1.9 mg/dl (1.7-2.4); Potassium 3.5 mmol/L (3.5-5.1); Total Protein 6.6 gm/dl (6.0-8.3)
--- NOTE | 2024-04-27 08:31 | Surgery Progress Note ---
Date of Service April 27, 2024 Assessment & Plan (1) Colon distention: Plan: +loose stools, VSS , wbc wnl abd soft non tender, distended no n/v , feeling hungry diet per primary team could consider GI consult for colonic distention no surgical intervention indicated pt with known chronic colonic distention General surgery will follow from peripherally call with questions/concerns Admission and Anticipated Discharge Date Admission Date: April 26, 2024 Supervising Physician Co-Signing Physician Notes Patient seen and examined, labs and imaging reviewed, agree with above. Admitted with abdominal and colonic distention, in the setting of chronic colonic inertia and diarrhea. Similar episode back in December with no surgical intervention required. He is currently having no pain, feels less bloated. He is continue to have liquid stools and gas. On exam he is afebrile with a soft and mildly distended abdomen. Labs unremarkable. CT scan personally reviewed and interpreted agree with the assessment of colonic distention but no obstruction or other abnormality to indicate surgery. This is a chronic condition does not require surgery as an inpatient. Recommend GI evaluation. May need evaluation by colorectal surgery as an outpatient. Surgery will follow peripherally. Subjective Pt denies n/v , and abd pain feeling hungry +loose stools Review of Systems Gastrointestinal: + diarrhea/loose stools; no abdominal pa in, no nausea and no vomiting Physical Exam Constitutional: cooperative and comfortable; no acute distress Respiratory: normal respiratory effort; no respiratory distress Gastrointestinal (Abdomen): Inspection/Auscultation: + abdomen distended Percussion/Palpation: abdomen soft; abdomen nontender and no guarding Results & Data Vital Signs (Past 12 Hours) Vital Signs Temp Pulse Pulse Pulse Resp BP BP 04/27/24 08:10 97.5 F L 70 20 116/68 04/27/24 07:40 67 15 04/27/24 07:18 94.6 F L 66 22 123/75 04/27/24 03:07 96.6 F L 66 16 117/66 04/27/24 00:35 74 04/27/24 00:30 97.9 F 74 16 146/81 H 04/26/24 23:56 97.9 F 04/26/24 23:31 67 24 112/70 04/26/24 23:00 69 16 143/85 H 04/26/24 23:00 69 20 143/85 H 04/26/24 22:42 70 04/26/24 22:30 68 16 123/80 04/26/24 22:00 71 20 143/82 H 04/26/24 22:00 71 23 143/82 H 04/26/24 21:30 71 21 134/97 04/26/24 21:00 72 23 126/78 04/26/24 20:33 74 21 143/82 H Pulse Ox O2 Del Method FiO2 04/27/24 08:10 96 Oxymask 04/27/24 07:40 92 Room Air 21 04/27/24 07:18 96 Room Air 04/27/24 03:07 100 Room Air 04/27/24 00:35 04/27/24 00:30 96 Room Air 04/26/24 23:56 04/26/24 23:31 98 Room Air 04/26/24 23:00 95 Room Air 04/26/24 23:00 97 Room Air 04/26/24 22:42 04/26/24 22:30 95 Room Air 04/26/24 22:00 96 Room Air 04/26/24 22:00 97 Room Air 04/26/24 21:30 96 Room Air 04/26/24 21:00 95 Room Air 04/26/24 20:33 96 Room Air PG Care Time/CCT Total # of Minutes Spent Total Time Spent with Patient: Total time spent is greater than 50% in coordination of care (as documented) at patient's floor/unit and/or counseling patient: Coding Level of Care Code 67639 SUB INP/OBS CARE 25MIN Diagnoses Colon distention K63.89
[2024-04-27] MEDS: ENOXAPARIN INJ 40 MG/0.4 ML SYR SQ SCH (12:35)
--- NOTE | 2024-04-27 14:28 | Gastrointestinal Consultation ---
Date of Consultation April 27, 2024 Assessment & Plan (1) Colon distention: Evaluated with Dr. Barker. Patient's CT noted from 04/26 to show colonic distention, but patient's abdominal exam is benign. His abdomen is soft and non- tender. Likely chronic colonic distention. May benefit from outpatient colorectal evaluation, but in the interim, will obtain a KUB today to reassess prior to considering any endoscopic intervention. Supervising Physician Co-Signing Physician Notes I examined the patient and reviewed patient's chart , laboratory data and imaging studies. I agree with with assessment and plan of care as suggested by advanced practice provider. Chronic recurrent colonic pseudoobstruction. Abdomen is soft and nontender on examination. The patient is having bowel movements. Follow-up KUB obtained today is essentially unchanged. Will defer colonic decompression due to chronic nature of patient's colonic ileus and unremarkable abdominal examination. Possible colectomy being considered by surgery. History of Present Illness Reason for Consultation: Colonic distention Attending Physician: Yosef Tejeda, History of Present Illness The patient is a 68-year-old male with a past medical history including intellectual disability, history of large intestine obstruction, history of obstructed suprapubic catheter, diabetes mellitus type 2, neurogenic bladder, acute renal failure, diabetic ulcers of feet, indwelling Hernandez catheter associated UTIs, multidrug-resistant UTIs, paraplegia, spina bifida, cerebral palsy, and hypertension. Patient presented to the emergency department with development of diarrhea all day prior to arrival, and increasing abdominal distention. He was noted to have colonic distention. He has been hospitalized with concerns for bowel obstruction previously. He has been unable to successfully prep in the past for colonoscopy. An attempt was made to do a colonoscopy in 2022 with very poor preparation. He takes Bisacodyl, Linzess, & senna at home per his med list in addition to fleet enemas prn. He notes he is having loose stool. He denies abdominal discomfort. He denies other new problems. History limited. CT on 04/26: IMPRESSION: 1. Redemonstrated diffuse gaseous distention of the colon. Sigmoid colon massively distended up to 16.5 cm. No obstruction or evidence of volvulus. The appearance is suggestive of colonic ileus. 2. Suprapubic Hernandez catheter. Inflamed thick-walled bladder containing stones. 3. Mild hydronephrosis in the left kidney with a focus of decreased cortical enhancement in the medial cortex consistent with acute pyelonephritis. Allergies Allergy/AdvReac Type Severity Reaction Status Date / Time lisinopril Allergy Unknown Unknown Verified 04/12/24 10:06 sulfamethoxazole AdvReac Unknown Nausea Verified 04/12/24 10:06 [From Bactrim] trimethoprim [From Bactrim] AdvReac Unknown Nausea Verified 04/12/24 10:06 Home Medications Medication Instructions Recorded Confirmed Type blood-glucose meter (OneTouch #1 ea 11/05/18 04/12/24 History Verio Meter) cholecalciferol (vitamin D3) 25 3,000 units PO DAILY 11/05/18 04/26/24 History mcg (1,000 unit) tablet Wheelchair (Manual) #1 ea 04/01/19 04/12/24 Rx diaper,brief,adult,disposable #48 ea 06/30/19 04/12/24 Rx blood sugar diagnostic (OneTouch #100 ea 04/10/20 04/12/24 Rx Ultra Blue Test Strip) linaclotide 72 mcg capsule 72 mcg PO 3XWK constipation 07/15/23 04/26/24 History (Linzess) propranolol 120 mg capsule,24 120 mg PO QAM 07/15/23 04/26/24 History hr,extended release (Inderal LA) sennosides 8.6 mg-docusate sodium 1 tab-cap PO QAM 10/14/23 04/26/24 History 50 mg tablet (Senokot-S) insulin aspart U-100 100 unit/mL 1 sliding scale dose SC ACHS #10 mL 12/22/23 04/26/24 Rx subcutaneous solution (Novolog U-100 Insulin aspart) citric ac 1980.6 mg-glucono 59.4 30 ml intravesical TID #900 mL 02/11/24 04/26/24 Rx mg-mag carb 980.4 mg/30 mL irrig.soln (Renacidin) atorvastatin 20 mg tablet 20 mg PO DAILY 02/26/24 04/26/24 History bisacodyl 10 mg rectal suppository 10 mg OK DAILY PRN Constipation 02/26/24 04/26/24 History (Dulcolax (bisacodyl)) cyanocobalamin (vitamin B-12) 100 mcg IM MONTHLY 02/26/24 04/26/24 History 1,000 mcg/mL injection kit magnesium hydroxide 400 mg/5 mL 0 ml PO DAILY PRN Constipation 02/26/24 04/26/24 History oral suspension (Milk of Magnesia) acetaminophen 325 mg tablet 650 mg PO Q6H PRN Pain/Fever 04/26/24 04/26/24 History (Tylenol) benzonatate 100 mg capsule 200 mg PO TID PRN Cough 04/26/24 04/26/24 History dextromethorphan HBr 10 mg/5 mL 10 mg PO QID PRN Cough 04/26/24 04/26/24 History oral liquid insulin glargine 100 unit/mL (3 30 unit subcut HS 04/26/24 04/26/24 History mL) subcutaneous pen (Basaglar KwikPen U-100 Insulin) ipratropium 0.5 mg-albuterol 3 mg 3 ml inhalation QID cough 04/26/24 04/26/24 History (2.5 mg base)/3 mL nebulization soln magnesium chloride 64 mg 64 mg PO QAM 04/26/24 04/26/24 History tablet,extended release nystatin 100,000 unit/gram topical 1 applic topical BID 04/26/24 04/26/24 History cream sodium phosphates 19 gram-7 118 ml OK DAILY PRN Constipation 04/26/24 04/26/24 History gram/118 mL enema (Fleet Enema) Patient History Medical History Spina bifida Paraplegia Esophagitis Abdominal distension hx chronic intermittent abdominal distention History of cellulitis hx left lower extremity/recurrent cellulitis. History of sepsis Balanitis History of tachycardia Right club foot Cerebral palsy Hypertension Type 2 diabetes mellitus History of small bowel obstruction 10/2023 Cognitive communication deficit Acute kidney failure, unspecified Muscle weakness (generalized) Enterocolitis due to Clostridium difficile, recurrent onset 10/2021 Hyperlipidemia Benign prostatic hyperplasia with lower urinary tract symptoms Hx: UTI (urinary tract infection) complicated uti noted on faxed info. PVD (peripheral vascular disease) did not observe on faxed info. History of COVID-19 07/2022 Anemia hx macrocytic anemia Unspecified intellectual disabilities [facility] resident Suprapubic catheter Heart disease Per [facility] records Patient's sister (HIPAA contact) denies Surgical History Presence of urogenital implants S/P cystoscopy cystolithopaxy w/ replacement suprapubic cath History of colonoscopy History of esophagogastroduodenoscopy (EGD) Presence of cardiac and vascular implant and graft Noted in [facility] records with the associated date 2015, patient was with [facility] at that [facility]- no evidence of cardiac or vascular implant/graft noted at that time- no further details per available [facility] records Patient's sister (Maribeth, HIPAA contact) denies Family History Mother Peripheral vascular disease Other Cancer Diabetes Heart disease Hypertension Denies family history of Ovarian cancer Prostate cancer Myocardial infarction Breast cancer Colorectal cancer Social History Smoking Status: Former smoker Tobacco Type: Cigarettes Hx Alcohol Use: No Hx Substance Use: No Preferred Language: Zambian Communication Ability: Effective Visual Impairment: No Limitations Hearing Ability: Hard of Hearing Traffic Analysis Technician Required: No Beliefs That Will Affect Care: None marital status: Single Current Living Situation: Intermediate Current Living Situation Comment: [facility] current occupational status: disabled Feels Safe at Home: Yes Diet: regular caffeine: Yes during the past year weight has: remained stable Dental Care, Regularly: No Physical Activity Frequency: Does not Exercise Seatbelt Use: never Assistive Devices: Hospital Bed, Mechanical Lift and Wheelchair Review of Systems Gastrointestinal: + diarrhea/loose stools; no abdominal pa in Physical Exam Constitutional: well developed Respiratory: normal respiratory effort Gastrointestinal (Abdomen): Soft abdomen, normoactive bowel sounds, no tenderness Results & Data Vital Signs (Past 12 Hours) Vital Signs Temp Pulse Resp BP Pulse Ox O2 Del Method FiO2 04/27/24 12:19 36.5 C 72 16 133/82 96 Room Air 04/27/24 11:13 74 14 94 Room Air 04/27/24 10:40 36.6 C 74 20 116/70 95 Oxymask 04/27/24 08:10 36.4 C L 70 20 116/68 96 Oxymask 04/27/24 07:40 67 15 92 Room Air 04/27/24 07:18 34.8 C L 66 22 123/75 96 Room Air 04/27/24 07:00 36.5 C 72 16 133/82 96 Room Air 04/27/24 03:07 35.9 C L 66 16 117/66 100 Room Air PG Care Time/CCT Total # of Minutes Spent Total Time Spent with Patient: Total time spent is greater than 50% in coordination of care (as documented) at patient's floor/unit and/or counseling patient: Coding Level of Care Code 87166 INT INP/OBS CARE 375MIN Diagnoses Colon distention K63.89
[2024-04-27] MEDS ORDERED: ALBUT/IPRATROP 3MG/0.5MG NEB 3 ML VIAL INH PRN (15:07)
--- NOTE | 2024-04-27 15:42 | XRay Report ---
KUB HISTORY: Acute generalized abdominal pain Colonic distention COMPARISON: CT 04/26/2024 FINDINGS: There is persistent colonic distention which is generally unchanged. Moderate colonic fecal retention. Calcifications of the prostate. No evidence of a small bowel obstruction. No renal calcu li identified by radiography. No pneumoperitoneum or pneumatosis. No fracture. IMPRESSION: Persistent colonic distention which is generally unchanged. ACT 112: Negative or not required by law. The above report was generated using voice recognition software. It may contain grammatical, syntax o r spelling errors. Electronically signed by: Primo Roland M.D. 04/27/2024 3:41 PM
--- NOTE | 2024-04-27 15:54 | Billing Data ---
Date of Service April 27, 2024 Coding Level of Care Code 95673 SUB INP/OBS CARE MIN
--- NOTE | 2024-04-27 16:00 | Infectious Disease Consult ---
Date of Consultation April 27, 2024 Assessment & Plan (1) Urinary tract infection associated with indwelling urethral catheter: (2) 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: (3) Acute pyelonephritis: Plan ID Problem List: 1. L-sided pyelonephritis and UTI, UCx + Klebsiella pneumoniae, Providencia stuartii 2. Chronic indwelling suprapubic catheter 3. Ileus 4. Reported antibiotic allergy to: Bactrim (nausea) Impression: Michael uHmphreys is a 68-year-old man with history of intellectual disability, spina bifida, cerebral palsy, paraplegia, history of large intestine obstruction, T2DM, neurogenic bladder s/p chronic indwelling suprapubic catheter, history of multiple CAUTIs, diabetic foot wounds, who presents to [facility] on 04/26/24 with diarrhea and abdominal distention, found to have paralytic ileus of small intestine and colon, and also found to have L-sided pyelonephritis. ID is consulted for pyelonephritis. In the ED,VS afebrile BP 143/82 HR 72 SpO2 95-97% RA. Labs showed WBC 10.67 Hgb 14.8 plt 233 Cr 0.99 AST 14 ALT 17 alk phos 114 tbili 1.2. UA pH 8.0 3+ LE, neg nitrites, >50 WBCs, 0-2 RBCs, 4+ bact. 04/26 CT A/P showed gaseous distension of the colon (up to 16.5 cm) c/f ileus; suprapubic catheter in place, thick-walled bladder containing stones, mild L hydronephrosis with decreased cortical enhancement of medial cortex c/w acute pyelonephritis. The patient was initially placed on ceftriaxone, which was changed to ceftazidime. Thus far, 04/26 UCx growing Klebsiella pneumoniae and Providencia stuartii. Surgery and GI following, continuing to monitor closely, suspecting chronic colonic distension. Discussion Pt with imaging c/f L-sided pyelonephritis and UTI, UCx thus far + Klebsiella pneumoniae, Providencia stuartii. Still awaiting sensis. Will change to cefepime and continue while following sensis. Do note history of MDR PsA (R-porter but S- ceftaz) which thus far has not re-grown. Recommendations: - Change to cefepime 2g IV q8h for now - F/u 04/26 UCx/sensitivities ID will continue to follow. Mervat Champion MD, MHS Infectious Diseases [facility] Connect ID Connect direct line: [phone] Consultation Information This patient recommendation is based on a telemedicine consult request which was completed asynchronously through chart review and information provided by the primary physician. The patient was not seen or examined today. The evaluation is consultative in nature and all patient care and treatment decisions can either be accepted or rejected by the patient's primary hospital-based treating physician using their own independent medical judgment for their patient. Animal Control Officer contact information: Please call [facility] Connect Call Center . (Phone Number For Physician Use Only) Time Spent Reviewing Chart: 31+ minutes History of Present Illness Reason for Consultation: UTI/pyelo Attending Physician: Yosef Tejeda DO History of Present Illness Michael Humphreys is a 68-year-old man with history of intellectual disability, spina bifida, cerebral palsy, paraplegia, history of large intestine obstruction, T2DM, neurogenic bladder s/p chronic indwelling suprapubic catheter, history of multiple CAUTIs, diabetic foot wounds, who presents to [facility] on 04/26/24 with diarrhea and abdominal distention, found to have paralytic ileus of small intestine and colon, and also found to have L-sided pyelonephritis. ID is consulted for pyelonephritis. In the ED,VS afebrile BP 143/82 HR 72 SpO2 95-97% RA. Labs showed WBC 10.67 Hgb 14.8 plt 233 Cr 0.99 AST 14 ALT 17 alk phos 114 tbili 1.2. UA pH 8.0 3+ LE, neg nitrites, >50 WBCs, 0-2 RBCs, 4+ bact. 04/26 CT A/P showed gaseous distension of the colon (up to 16.5 cm) c/f ileus; suprapubic catheter in place, thick-walled bladder containing stones, mild L hydronephrosis with decreased cortical enhancement of medial cortex c/w acute pyelonephritis. The patient was initially placed on ceftriaxone, which was changed to ceftazidime. Thus far, 04/26 UCx growing Klebsiella pneumoniae and Providencia stuartii. Surgery and GI following, continuing to monitor closely, suspecting chronic colonic distension. Allergies Allergy/AdvReac Type Severity Reaction Status Date / Time lisinopril Allergy Unknown Unknown Verified 04/12/24 10:06 sulfamethoxazole AdvReac Unknown Nausea Verified 04/12/24 10:06 [From Bactrim] trimethoprim [From Bactrim] AdvReac Unknown Nausea Verified 04/12/24 10:06 Home Medications Medication Instructions Recorded Confirmed Type blood-glucose meter (OneTouch #1 ea 11/05/18 04/12/24 History Verio Meter) cholecalciferol (vitamin D3) 25 3,000 units PO DAILY 11/05/18 04/26/24 History mcg (1,000 unit) tablet Wheelchair (Manual) #1 ea 04/01/19 04/12/24 Rx diaper,brief,adult,disposable #48 ea 06/30/19 04/12/24 Rx blood sugar diagnostic (OneTouch #100 ea 04/10/20 04/12/24 Rx Ultra Blue Test Strip) linaclotide 72 mcg capsule 72 mcg PO 3XWK constipation 07/15/23 04/26/24 History (Linzess) propranolol 120 mg capsule,24 120 mg PO QAM 07/15/23 04/26/24 History hr,extended release (Inderal LA) sennosides 8.6 mg-docusate sodium 1 tab-cap PO QAM 10/14/23 04/26/24 History 50 mg tablet (Senokot-S) insulin aspart U-100 100 unit/mL 1 sliding scale dose SC ACHS #10 mL 12/22/23 04/26/24 Rx subcutaneous solution (Novolog U-100 Insulin aspart) citric ac 1980.6 mg-glucono 59.4 30 ml intravesical TID #900 mL 02/11/24 04/26/24 Rx mg-mag carb 980.4 mg/30 mL irrig.soln (Renacidin) atorvastatin 20 mg tablet 20 mg PO DAILY 02/26/24 04/26/24 History bisacodyl 10 mg rectal suppository 10 mg PA DAILY PRN Constipation 02/26/24 04/26/24 History (Dulcolax (bisacodyl)) cyanocobalamin (vitamin B-12) 100 mcg IM MONTHLY 02/26/24 04/26/24 History 1,000 mcg/mL injection kit magnesium hydroxide 400 mg/5 mL 0 ml PO DAILY PRN Constipation 02/26/24 04/26/24 History oral suspension (Milk of Magnesia) acetaminophen 325 mg tablet 650 mg PO Q6H PRN Pain/Fever 04/26/24 04/26/24 History (Tylenol) benzonatate 100 mg capsule 200 mg PO TID PRN Cough 04/26/24 04/26/24 History dextromethorphan HBr 10 mg/5 mL 10 mg PO QID PRN Cough 04/26/24 04/26/24 History oral liquid insulin glargine 100 unit/mL (3 30 unit subcut HS 04/26/24 04/26/24 History mL) subcutaneous pen (Basaglar KwikPen U-100 Insulin) ipratropium 0.5 mg-albuterol 3 mg 3 ml inhalation QID cough 04/26/24 04/26/24 History (2.5 mg base)/3 mL nebulization soln magnesium chloride 64 mg 64 mg PO QAM 04/26/24 04/26/24 History tablet,extended release nystatin 100,000 unit/gram topical 1 applic topical BID 04/26/24 04/26/24 History cream sodium phosphates 19 gram-7 118 ml PA DAILY PRN Constipation 04/26/24 04/26/24 History gram/118 mL enema (Fleet Enema) Patient History Medical History Spina bifida Paraplegia Esophagitis Abdominal distension hx chronic intermittent abdominal distention History of cellulitis hx left lower extremity/recurrent cellulitis. History of sepsis Balanitis History of tachycardia Right club foot Cerebral palsy Hypertension Type 2 diabetes mellitus History of small bowel obstruction 10/2023 Cognitive communication deficit Acute kidney failure, unspecified Muscle weakness (generalized) Enterocolitis due to Clostridium difficile, recurrent onset 10/2021 Hyperlipidemia Benign prostatic hyperplasia with lower urinary tract symptoms Hx: UTI (urinary tract infection) complicated uti noted on faxed info. PVD (peripheral vascular disease) did not observe on faxed info. History of COVID-19 07/2022 Anemia hx macrocytic anemia Unspecified intellectual disabilities [facility] resident Suprapubic catheter Heart disease Per [facility] records Patient's sister (HIPAA contact) denies Surgical History Presence of urogenital implants S/P cystoscopy cystolithopaxy w/ replacement suprapubic cath History of colonoscopy History of esophagogastroduodenoscopy (EGD) Presence of cardiac and vascular implant and graft Noted in [facility] records with the associated date 2015, patient was with [facility] PCP at that time- no evidence of cardiac or vascular implant/graft noted at that time- no further details per available [facility] records Patient's sister (Maribeth, HIPAA contact) denies Family History Mother Peripheral vascular disease Other Cancer Diabetes Heart disease Hypertension Denies family history of Ovarian cancer Prostate cancer Myocardial infarction Breast cancer Colorectal cancer Social History Smoking Status: Former smoker Tobacco Type: Cigarettes Hx Alcohol Use: No Hx Substance Use: No Preferred Language: Syrian Communication Ability: Effective Visual Impairment: No Limitations Hearing Ability: Hard of Hearing Spice Cleaner Required: No Beliefs That Will Affect Care: None marital status: Single Current Living Situation: [place] Current Living Situation Comment: [facility] current occupational status: disabled Feels Safe at Home: Yes Diet: regular caffeine: Yes during the past year weight has: remained stable Dental Care, Regularly: No Physical Activity Frequency: Does not Exercise Seatbelt Use: never Assistive Devices: Hospital Bed, Mechanical Lift and Wheelchair Results & Data Vital Signs (Past 12 Hours) Vital Signs Temp Pulse Resp BP Pulse Ox O2 Del Method FiO2 04/27/24 15:15 37.1 C 74 18 119/77 95 Room Air 04/27/24 12:19 36.5 C 72 16 133/82 96 Room Air 04/27/24 11:13 74 14 94 Room Air 04/27/24 10:40 36.6 C 74 20 116/70 95 Oxymask 04/27/24 08:10 36.4 C L 70 20 116/68 96 Oxymask 04/27/24 07:40 67 15 92 Room Air 04/27/24 07:18 34.8 C L 66 22 123/75 96 Room Air 04/27/24 07:00 36.5 C 72 16 133/82 96 Room Air Diagnostic Findings Diagnostics: 04/26 CT A/P 1. Redemonstrated diffuse gaseous distention of the colon. Sigmoid colon massively distended up to 16.5 cm. No obstruction or evidence of volvulus. The appearance is suggestive of colonic ileus. 2. Suprapubic Hernandez catheter. Inflamed thick-walled bladder containing stones. 3. Mild hydronephrosis in the left kidney with a focus of decreased cortical enhancement in the medial cortex consistent with acute pyelonephritis. Micro Data: 04/26 UCx: >100k Klebsiella pneumoniae, >100k Providencia stuartii Prior micro 12/20/23 UCx: Pseudomonas aeruginosa (S-ceftaz/ceftaz-susana/gent/tobra; I-cefepime/pip-tazo; R-meropenem/cipro/levo), Providencia alcalifaciens (R- Unasyn/cipro/levo; otherwise S) 12/18/23 UCx: three types of orgs 10/14/23 BCx x2: CoNS in 1 of 2 sets 10/14/23 UCx: three types of orgs 10/01/23 UCx: Proteus mirabilis 07/18/23 UCx: Providencia alcalifaciens, Providencia stuartii, E. faecalis, Prevotella melaninogenica Antibiotic Summary: ceftazidime (04/26 present) ceftriaxone (04/26)
[2024-04-27 16:30] LABS: Estimated Average Glucose 214 mg/dl; Hemoglobin A1C 9.1 % (4.5-5.6)
[2024-04-27] MEDS: CEFEPIME 2,000 MG in SYRINGE 0 ML IV SCH (17:52)
[2024-04-27] MEDS: bisacodyL 10 MG SUPP PR ONE (17:53)
[2024-04-27] MEDS: LANTUS PER UNIT CHARGE SQ SCH (20:44)
[2024-04-28 07:55] VITALS: RESP 18
[2024-04-28 08:16] LABS: Basophils # (auto) 0.03 K/uL (0.00-0.20); Basophils % (auto) 0.5 %; Eosinophils % (auto) 3.3 %; Hematocrit (blood only) 39.5 % (42.0-52.0); Hemoglobin 13.8 g/dl (14.0-18.0); Immature Granulocytes # (auto) 0.03 K/uL (0.01-0.20); Immature Granulocytes % (auto) 0.5 %; Lymphocytes # (auto) 1.27 K/uL (1.20-3.40); Lymphocytes % (auto) 21.2 %; Mean Corpuscular Hemoglobin 31.4 pg (25.0-34.0); Mean Corpuscular Hgb Conc 34.9 g/dL (32.0-36.0); Mean Corpuscular Volume 89.8 fL (80.0-100.0); Mean Platelet Volume 9.1 fL (9.4-12.4); Monocytes # (auto) 0.48 K/uL (0.11-0.59); Neutrophils # (auto) 3.99 K/uL (1.40-6.50); Neutrophils % (auto) 66.5 %; Platelet Count 200 K/uL (130-400); RDW Coefficient of Variation 14.3 % (11.5-14.5)
[2024-04-28 08:41] LABS: BUN Creatinine Ratio 13.5 (10-20); Calcium 8.9 mg/dl (8.6-10.3); Creatinine Clr Calc Pharmacy 94.6 ml/min; Potassium 3.9 mmol/L (3.5-5.1)
--- NOTE | 2024-04-28 08:53 | Hospitalist Progress Note ---
Date of Service April 28, 2024 Assessment & Plan (1) Abdominal distension: (2) Acute pyelonephritis: (3) Type 2 diabetes mellitus: Plan Pt is a 68 yo male with a past medical hx of cerebral palsy, spina bifida, intellectual disability, DMT2, HTN, neurogenic bladder, diabetic foot ulcers, indwelling plunkett associated with multi-drug resistant UTIs, hx of obstructed suprapubic catheter, and hx of large intestine obstructions who presented to the hospital on 04/26 for diarrhea. Diarrhea, potentially overflow diarrhea - CT abd showed diffuse gaseous distention of the colon, no obstruction or volvulus - Hemoccult negative, does have hx of chronic diarrhea - gen surg consulted; no concerns from a surgery standpoint - GI consulted; no further recs - recommend aggressive bowel regime for daily/twice daily bowel movements to reduce stool burden Left-sided pyelonephritis - CT abd showed mild L hydronephrosis and acute pyelonephritis, - History of multidrug-resistant Pseudomonas aeruginosa, providencia and Proteus - given 1 dose IV ceftriaxone, transitioned to cefepime, bacterial sensitives sensitive to cephalosporins so will discharge on cefpodoxime - given hx of multidrug resistance, ID was consulted Diabetes mellitus - Reduce glargine from 30 to 15 units subcu at bedtime - Hold standard dosing of NovoLog - Placed on Accu-Cheks with NovoLog SSI VTE ppx: Lovenox Admission and Anticipated Discharge Date Admission Date: April 26, 2024 Subjective Patient is a 68 year old man with a hx of cerebral palsy, spina bifida, intellectual disability, DMT2, HTN, neurogenic bladder, diabetic foot ulcers, indwelling plunkett associated with multi-drug resistant UTIs, hx of obstructed suprapubic catheter, and hx of large intestine obstructions who presented to the hospital on 04/26 for diarrhea likely secondary to colonic distention from constipation. He feels better today compared to yesterday. Had 1 bowel movement yesterday, still liquid, not much volume. Denies abdominal pain. Feels hungry, is on liquid diet. Has chronic cough > 1 year that wakes him up at night. No nausea or vomiting, No chest pain or SOB. He is on a permanent plunkett b/c neurogenic bladder and urine culture grew klebsiella. He reported some pain yesterday when urinating through the plunkett, but he says it has resolved after the plunkett was flushed. He has had 2 days of antibiotics for his UTI at this point. Review of Systems Review of Systems: Neg Physical Exam Physical Exam: General:Alert, on breathing treatment at time of exam but no acute distress noted Cardio: Regular rate and rhythm, S1 S2. Resp:Lungs clear to auscultation b/l, no wheezes or rhonchi, GI: Soft and nontender, mild distention, bowel sounds active. No tenderness upon palpation. Skin: Warm, pink, dry. Healing ulcerations on L foot. Some swelling in ankles, foot no pitting edema. Results & Data Results & Data Vital Signs (Past 12 Hours) Vital Signs Temp Pulse Pulse Resp BP BP Pulse Ox 04/28/24 07:54 36.3 C L 91 H 18 134/94 95 04/28/24 07:30 81 04/28/24 03:05 36.4 C L 86 16 128/78 96 04/27/24 23:46 36.4 C L 92 H 16 120/73 96 04/27/24 21:48 88 O2 Del Method 04/28/24 07:54 Room Air 04/28/24 07:30 04/28/24 03:05 Room Air 04/27/24 23:46 Room Air 04/27/24 21:48 Resident Activity Tracking Resident Involvement: Resident Care Provided Care Provided: Adult Hospital Medicine
--- NOTE | 2024-04-28 11:11 | Gastroenterology Progress Note ---
Date of Service April 28, 2024 Assessment & Plan (1) Colon distention: Plan: KUB shows stability. Exam indicates distention, but soft abdomen, non-tender. 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 Will defer colonic decompression for now given the chronic nature. He will need to continue an aggressive bowel regimen upon discharge. It is noted he has an outpatient colonoscopy planned. Consideration should be given to outpatient colorectal surgical evaluation. Admission and Anticipated Discharge Date Admission Date: April 26, 2024 Supervising Physician Co-Signing Physician Notes I examined the patient and reviewed patient's chart , laboratory data and imaging studies. I agree with with assessment and plan of care as suggested by advanced practice provider. Okay to discharge from GI standpoint. The patient is scheduled for an outpatient colonoscopy next week. Extended bowel prep is being ordered. Subjective Patient is a 68 yo male who presents with colonic distention and chronic pseudoobstruction. He is moving his bowels today. He notes he is passing gas. KUB from 04/27 did not indicate any interval worsening. He denies abdominal pain. Abdomen is soft. Review of Systems Constitutional: no fever and no chills Gastrointestinal: + constipation (Improving); no abdominal pain, no change in bowel habits and no blood in stools Physical Exam Gastrointestinal (Abdomen): Soft, distended, +bowel sounds Results & Data Results & Data Vital Signs (Past 12 Hours) Vital Signs Temp Pulse Pulse Resp BP BP Pulse Ox 04/28/24 07:54 36.3 C L 91 H 18 134/94 95 04/28/24 07:30 81 04/28/24 03:05 36.4 C L 86 16 128/78 96 04/27/24 23:46 36.4 C L 92 H 16 120/73 96 O2 Del Method 04/28/24 07:54 Room Air 04/28/24 07:30 04/28/24 03:05 Room Air 04/27/24 23:46 Room Air PG Care Time/CCT Total # of Minutes Spent Total Time Spent with Patient: Total time spent is greater than 50% in coordination of care (as documented) at patient's floor/unit and/or counseling patient: Coding Level of Care Code 92988 SUB INP/OBS CARE 3/50MIN Diagnoses Colon distention K63.89
--- NOTE | 2024-04-28 11:12 | Discharge Summary ---
Date of Service April 28, 2024 Admission HPI Per Admitting Provider The patient is a 68-year-old male with a past medical history including intellectual disability, history of large intestine obstruction, history of obstructed suprapubic catheter, diabetes mellitus type 2, neurogenic bladder, acute renal failure, diabetic ulcers of feet, indwelling Plunkett catheter associated UTIs, multidrug-resistant UTIs, paraplegia, spina bifida, cerebral palsy, and hypertension. Patient presents to the emergency department with development of diarrhea all day prior to arrival, and increasing abdominal distention. Admission Exam Per Admitting Provider The patient is awake, alert and oriented 3, well developed and well nourished, normocephalic and atraumatic, lying in bed and in no acute distress. HEENT--PERRL, EOMI, mucous membranes and oropharynx mildly dry. Neck--supple. No JVD. No bruits. Thyroid normal, trachea midline, no adenopathy. Heart--normal S1 and S2. No murmurs, rubs or gallops. Lungs--clear bilaterally, no respiratory distress, no accessory muscle use. Abdomen--normal bowel sounds, moderately distended and tympanitic Extremities--No edema. Dermatologic--normal skin turgor, normal color, no abnormal lymph nodes, no rash. Neurologic--cranial nerves II through XII grossly intact. Rheumatologic--paraplegia Psychiatric--normal affect. Principal Diagnosis Diarrhea Discharge Exam General:Alert, oriented x3, no acute distress, comfortable appearing Cardio: Regular rate and rhythm, Resp:Lungs clear to auscultation b/l, no wheezes or rhonchi, GI: Soft and nontender, mild distention, bowel sounds active Skin: Warm, pink, dry, Discharge Data Allergies Allergy/AdvReac Type Severity Reaction Status Date / Time lisinopril Allergy Unknown Unknown Verified 04/12/24 10:06 sulfamethoxazole AdvReac Unknown Nausea Verified 04/12/24 10:06 [From Bactrim] trimethoprim [From Bactrim] AdvReac Unknown Nausea Verified 04/12/24 10:06 Consultations 04/26/24 20:43 ED Decision to Admit Stat 04/26/24 21:35 Consult Infectious Diseases Routine 04/26/24 22:03 Consult General Surgery Routine 04/27/24 00:28 Consult Gastroenterology Routine Ordered Studies 04/26/24 19:13 CT abd pelvis IV con only Stat Hospital Course (1) Abdominal distension: (2) Acute pyelonephritis: (3) Type 2 diabetes mellitus: Plan Pt is a 68 yo male with a past medical hx of cerebral palsy, spina bifida, intellectual disability, DMT2, HTN, neurogenic bladder, diabetic foot ulcers, indwelling plunkett associated with multi-drug resistant UTIs, hx of obstructed suprapubic catheter, and hx of large intestine obstructions who presented to the hospital on 04/26 for diarrhea. Diarrhea, potentially overflow diarrhea - CT abd showed diffuse gaseous distention of the colon, no obstruction or volvulus - Hemoccult negative, does have hx of chronic diarrhea - gen surg consulted; no concerns from a surgery standpoint - GI consulted; no further recs - recommend aggressive bowel regime for daily/twice daily bowel movements to reduce stool burden - to have colonoscopy next week Left-sided pyelonephritis - CT abd showed mild L hydronephrosis and acute pyelonephritis, - History of multidrug-resistant Pseudomonas aeruginosa, providencia and Proteus - given 1 dose IV ceftriaxone, transitioned to cefepime, bacterial sensitives sensitive to cephalosporins so will discharge on cefpodoxime Total Time Total Time Spent Total Time Spent (In Minutes): <30 Discharge Plan Discharge Items Patient Disposition: Transfer Inpatient Rehab Fac Reason For Visit: COLONIC ILEUS, PYELONEPHRITIS Discharge Diagnosis: Diarrhea, pyleonephritis Condition on Discharge: Fair Activity: Resume your previous activity Non-emergency contact: Primary Care Provider Call non-emergency contact if: you have any medication questions, your symptoms worsen, your pain is worsening and your temperature is above 101 Follow-up/Referrals: Chuck Traylor III, MD [Primary Care Provider] - Diet: Regular Addtl Attending Provider Instructions: You were admitted for worsening diarrhea and a kidney infection (pyelonephritis). As we talked about, we believe your diarrhea is related to actually being quite constipated, so only liquid stool that can get around the blockages gets out. We recommend an increase in bowel regime from here on out with goal of 1-2 soft easy to pass bowel movements daily. As you are already set up for a colonoscopy next week, the prep for that will assist in cleaning out your bowels. We have sent an antibiotic for you for your kidney infection. Please take all pills as directed until out of pills. Please follow-up with your primary care doctor 1 week after discharge from the hospital. Pending Studies at Discharge: No Stand-Alone Forms: My [facility] Skilled Items Patient informed of condition?: Yes DNR: Yes Discharge Level of Care: Skilled Communicable Disease: No Discharge Prognosis: Stable Lines: None Urinary Catheter: Yes Medications and DC Order Prescriptions: New cefpodoxime 200 mg tablet 200 mg PO BID 8 Days Qty: 16 0RF Rx Instructions: must administer with a meal/food Continued (DME) Wheelchair (Manual) Device See Dose Instructions .ROUTE .MEDSUPPLY Qty: 1 0RF Dose Instruction: As directed Rx Instructions: Wheelchair Repair (DME) diaper,brief,adult,disposable Misc See Dose Instructions .ROUTE .MEDSUPPLY Qty: 48 2RF Rx Instructions: As directed (DME) OneTouch Ultra Blue Test Strip Strip See Dose Instructions .ROUTE .MEDSUPPLY Qty: 100 5RF Dose Instruction: As directed Rx Instructions: Test once a day (DME) blood-glucose meter [OneTouch Verio Meter] misc See Dose Instructions .ROUTE .MEDSUPPLY Qty: 1 Rx Instructions: USE TO TEST 3-4 TIMES DAILY PRN cholecalciferol (vitamin D3) 1,000 unit tablet 3,000 units PO DAILY Renacidin 1,980.6 mg-59.4 mg-980.4mg/30mL solution 30 ml intravesical TID Qty: 900 5RF Rx Instructions: Instill 30 ml into bladder; clamp for 10 minutes, then remove clamp and drain bladder. Repeat 3 times daily. atorvastatin 20 mg tablet 20 mg PO DAILY magnesium hydroxide [Milk of Magnesia] 400 mg/5 mL suspension 0 ml PO DAILY PRN (Reason: Constipation) Rx Instructions: Milk of Mag 7.75%: Give 30ml by mouth as needed for constipation if no BM for 3 days. Administer on 7-3 shift bisacodyl [Dulcolax (bisacodyl)] 10 mg suppository 10 mg MI DAILY PRN (Reason: Constipation) Rx Instructions: Give on day 3 on 3-11 shift if no BM after MOM cyanocobalamin (vitamin B-12) 1,000 mcg/mL kit 100 mcg IM MONTHLY Rx Instructions: On the of every month propranolol [Inderal LA] 120 mg Capsule,Extended Release 24 Hr 120 mg PO QAM Linzess 72 mcg capsule 72 mcg PO 3XWK Patient Comments: , , Fri - administer 30 min before meal Rx Instructions: one time daily , , friday...ADMINISTER 30 MIN BEFORE MEAL sennosides-docusate sodium [Senokot-S] 8.6-50 mg Tablet 1 tab-cap PO QAM Rx Instructions: HOLD FOR LOOSE STOOLS insulin aspart U-100 [Novolog U-100 Insulin aspart] 100 unit/mL Solution 1 sliding scale dose SC ACHS Qty: 10 0RF Rx Instructions: 350-400 = 8units; 401-450 = 12 units; 451-500 = 16units; 501-550 = 18units; 551-1000 = 20units. --Goal BSG Range: Low 110 mg/dL, High 160 mg/dL --Correction Factor: 20 mg/dL/unit --Carbohydrate ratio = 10 g/unit --BSGs ACHS if eating, q6h if npo acetaminophen [Tylenol] 325 mg Tablet 650 mg PO Q6H MDD 3g/24hr PRN (Reason: Pain/Fever) ipratropium-albuterol 0.5 mg-3 mg(2.5 mg base)/3 mL solution for nebulization 3 ml inhalation QID Rx Instructions: Start Date 04/26/24 - End Date 05/03/24 dextromethorphan HBr 10 mg/5 mL Liquid 10 mg PO QID PRN (Reason: Cough) Rx Instructions: Start Date 04/26/24 - End Date 05/03/24 Slow-Mag 64 mg Tablet Extended Release 64 mg PO QAM benzonatate 100 mg Capsule 200 mg PO TID PRN (Reason: Cough) Rx Instructions: Start Date 04/26/24 - End Date 05/03/24 nystatin 100,000 unit/gram cream 1 applic TOPICAL BID Rx Instructions: Start Date 04/14/24 - End Date 04/28/24 Fleet Enema 19-7 gram/118 mL Enema 118 ml MI DAILY PRN (Reason: Constipation) Rx Instructions: Give if no BM after dulcolax on day 4 ; administer on 7-3 shift insulin glargine [Basaglar KwikPen U-100 Insulin] 100 unit/mL (3 mL) insulin pen 30 unit SUBCUT HS Discharge Orders: Discharge Order (Routine); Ordered 04/28/24 Ordered By: Jamilah Martin Admission Data Admit Date/Time: 04/26/24 21:34 Attending Provider: Yosef Tejeda Admit Provider: Brett Landaverde Primary Care Provider: Chuck Traylor III Other Providers: Brett Landaverde; Kvng Deleon; Cintia Forte Jr; [place],[facility] Supervising Physician Co-Signing Physician Notes I personally examined the patient and verified all ahmadi points of history and exam, discussed case, and agree with decision making with Dr Martin feeling ok. feels up to leaving hospital vitals noted nad heent nc at mmm abd soft mod distention but soft nt no guarding no rebound no rigidity dilated bowel/diarrhea - suspect chronic neurogenic bowel, a degree of distal constipation, overflow diarrhea. appreciate employee relations consultant input. safe for return to SNF, would increase bowel regimen (?suppository or enema ~3x/wk and miralax ~BID) - for colo next week and ongoing work towards colorectal eval questionable pyelonephritis - no flank pain/nausea/vomiting/CVA tenderness, minimal but not negative lower urinary sx. treat - with sensitivities, cefpodoxime DVT proph - lovenox otherwise as above Resident Activity Tracking Resident Involvement: Resident Care Provided Care Provided: Adult Hospital Medicine
[2024-04-28 11:51] VITALS: TEMP 97.5; O2SAT 96
--- NOTE | 2024-04-28 13:18 | Infectious Disease Progress Nt ---
Date of Service April 28, 2024 Assessment & Plan (1) Urinary tract infection associated with indwelling urethral catheter: (2) 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: (3) Acute pyelonephritis: Plan ID Problem List: 1. L-sided pyelonephritis and UTI, UCx + Klebsiella pneumoniae, Providencia stuartii 2. Chronic indwelling suprapubic catheter 3. Ileus 4. Reported antibiotic allergy to: Bactrim (nausea) Impression: Michael Humphreys is a 68-year-old man with history of intellectual disability, spina bifida, cerebral palsy, paraplegia, history of large intestine obstruction, T2DM, neurogenic bladder s/p chronic indwelling suprapubic catheter, history of multiple CAUTIs, diabetic foot wounds, who presents to [facility] 04[facility]26[facility] with diarrhea and abdominal distention, found to have paralytic ileus of small intestine and colon, and also found to have L-sided pyelonephritis. ID is consulted for pyelonephritis. In the ED,VS afebrile BP 143/82 HR 72 SpO2 95-97% RA. Labs showed WBC 10.67 Hgb 14.8 plt 233 Cr 0.99 AST 14 ALT 17 alk phos 114 tbili 1.2. UA pH 8.0 3+ LE, neg nitrites, >50 WBCs, 0-2 RBCs, 4+ bact. 04/26 CT A/P showed gaseous distension of the colon (up to 16.5 cm) c/f ileus; suprapubic catheter in place, thick-walled bladder containing stones, mild L hydronephrosis with decreased cortical enhancement of medial cortex c/w acute pyelonephritis. The patient was initially placed on ceftriaxone, which was changed to ceftazidime. Thus far, 04/26 UCx growing Klebsiella pneumoniae and Providencia stuartii. Surgery and GI following, continuing to monitor closely, suspecting chronic colonic distension. Discussion Pt with imaging c/f L-sided pyelonephritis and UTI, UCx + Klebsiella pneumoniae, Providencia stuartii. Pt with chronic SPC. Based on susceptibilities, can treat with ceftriaxone while inpatient (note Providencia without high risk of ampC overexpression https://www.idsociety.org/practice-guideline/amr-guidance). The Providencia is R-cipro/levo; the patient has a reported allergy to Bactrim (listed as nausea) however given pts cognitive impairment will not be able to clarify the allergy. Especially given pts clinical stability, can recommend changing to cefpodoxime if discharging to complete a 10-day course. Do note history of MDR PsA (R-porter but S-ceftaz) which thus far has not re- grown. Recommendations: - Change to ceftriaxone 2g IV q24h while inpatient. Upon discharge, can change to cefpodoxime 400 mg PO BID to complete a 10-day course (04/2605/05/24) - Ensure close follow up with primary care and urology Plan discussed with Dr. Tejeda. Thank you for letting ID participate in the care of this patient. ID will sign off at this time. If questions, [facility] contact [facility] at [phone]. Mervat Champion MD, MHS Infectious Diseases [facility]/ID Connect ID Connect direct line: [phone] Admission and Anticipated Discharge Date Admission Date: April 26, 2024 Subjective This patient recommendation is based on a telemedicine consult request which was completed asynchronously through chart review and information provided by the primary physician. The patient was not seen or examined today. The evaluation is consultative in nature and all patient care and treatment decisions can either be accepted or rejected by the patient's primary hospital-based treating physician using their own independent medical judgment for their patient. Time Spent Reviewing Chart: 31+ minutes - Afebrile, WBC 6 - Per Dr. Tejeda, patient has been stable and likely to discharge to SNF today Results & Data Vital Signs (Past 12 Hours) Vital Signs Temp Pulse Pulse Resp BP BP Pulse Ox 04/28/24 11:51 36.4 C L 109 H 18 150/75 H 96 04/28/24 07:54 36.3 C L 91 H 18 134/94 95 04/28/24 07:30 81 04/28/24 03:05 36.4 C L 86 16 128/78 96 O2 Del Method 04/28/24 11:51 Room Air 04/28/24 07:54 Room Air 04/28/24 07:30 04/28/24 03:05 Room Air Diagnostic Findings Diagnostics: 04/26 CT A/P 1. Redemonstrated diffuse gaseous distention of the colon. Sigmoid colon massively distended up to 16.5 cm. No obstruction or evidence of volvulus. The appearance is suggestive of colonic ileus. 2. Suprapubic Hernandez catheter. Inflamed thick-walled bladder containing stones. 3. Mild hydronephrosis in the left kidney with a focus of decreased cortical enhancement in the medial cortex consistent with acute pyelonephritis. Micro Data: 04/26 UCx: >100k Klebsiella pneumoniae (I-nitrofurantoin; otherwise S including S-amp/cefazolin/cipro/levo/Bactrim), >100k Providencia stuartii (R-Unasyn/ cefuroxime/cipro/levo; otherwise S-ceftriaxone/cefepime/Bactrim) Prior micro 12/20/23 UCx: Pseudomonas aeruginosa (S-ceftaz/ceftaz-susana/gent/tobra; I-cefepime/pip-tazo; R-meropenem/cipro/levo), Providencia alcalifaciens (R- Unasyn/cipro/levo; otherwise S) 12/18/23 UCx: three types of orgs 10/14/23 BCx x2: CoNS in 1 of 2 sets 10/14/23 UCx: three types of orgs 10/01/23 UCx: Proteus mirabilis 07/18/23 UCx: Providencia alcalifaciens, Providencia stuartii, E. faecalis, Prevotella melaninogenica Antibiotic Summary: ceftriaxone (04/26) cefepime (04/27 04/28) ceftazidime (04/26 04/27)
--- NOTE | 2024-04-28 13:23 | Billing Data ---
Date of Service April 28, 2024 Coding Level of Care Code 61066 IN/OBS DISCH 30 MIN/LESS
[2024-04-28 14:17] VITALS: BP 128/78; PULSE 74
== END 2024-04-28 14:26 | DRG 699 ==
LOC: ED 18:36 → 2W 21:34 → SUATTDRO 21:34 → 2W 23:56

== ENCOUNTER 2024-07-30 19:03 | Inpatient (IN) ==
--- NOTE | 2024-07-30 19:35 | Emergency Department Note ---
Impression & Plan Acute intestinal pseudo-obstruction, Abdominal pain, Vomiting ED Provider Note NAME: MARCELLUS KIRKPATRICK AGE: 68 SEX: M : 1955 ARRIVES VIA: Ambulance INFORMANT: Patient ED PROVIDER(S): Yosef Dahl DO CHIEF COMPLAINT: Abdominal pain HPI: Patient is a 68-year-old male who presents to the ER with a past medical history of paralytic ileus, intellectual disability, diarrhea, diabetes, constipation, paraplegia who presents to the ER for nausea vomiting. Patient was being prepped for colonoscopy yesterday into today. He started vomiting and has been unable to keep anything down. His belly has become distended and tender. He is having loose bowel movements. He denies any headache or change in vision. No chest pain or shortness of breath. No urinary symptoms but admits to a Hernandez. ADDITIONAL HISTORY OBTAINED: Per HPI Chronic Medical/Social Conditions Affecting Care: Per HPI PAST MEDICAL HISTORY:See Below PAST SURGICAL HISTORY:See Below FAMILY HISTORY:See Below SOCIAL HISTORY:See Below HOME MEDICATIONS:See Below ALLERGIES:See Below VITALS:See Below PHYSICAL EXAMINATION: GENERAL: Sitting up in bed, alert, well appearing, well nourished, no distress, non-toxic EYE EXAM: normal conjunctiva. OROPHARYNX: no exudate, no erythema, lips, buccal mucosa, and tongue normal and mucous membranes are moist NECK: supple, no nuchal rigidity, no adenopathy, non-tender LUNGS: Clear to auscultation. Normal chest wall mechanics HEART: no murmurs, S1 normal and S2 normal ABDOMEN: abdomen soft, mild diffuse tenderness and distention. No rebound or guarding. : Hernandez in place with light yellow urine UPPER EXTREMITIES: upper extremities are grossly normal. LOWER EXTREMITIES: No pitting edema. NEURO EXAM: Normal sensorium, cranial nerves II-XII grossly intact, normal speech. MEDICAL DECISION MAKING: Patient is a 68-year-old male who presents ER for the below stated complaint. IV was established and blood work was obtained. Labs show leukocytosis of 15,000. No significant anemia. BMP along with LFTs is remarkable for slightly elevated blood sugar at 300. T. bili at 2.3. UA was from a chronic Hernandez. Will not treat at this time and defer to the hospitalist. Discussed with general surgery/Dar Kelly who recommended NG tube which was ordered in place. Discussed with the hospitalist for further evaluation management treatment. Patient was given IV fluids while in the ER. Consults/Care Managements Discussions: Per MDM Triage Nursing notes reviewed. Limited review of prior medical records performed Vital Signs: reviewed and remarkable for HTN and tachy Differential diagnosis: Differential diagnoses includes but is not limited to gastritis, peptic ulcer disease, GERD, gallbladder disease, pancreatitis, small bowel obstruction, appendicitis, diverticulitis, hernia, urinary tract infection, torsion, [/ectopic (if female)], perforation, trauma, infectious. ER treatment provided: See below Diagnostics interpreted by me include EKG and cardiac monitoring as listed below: -Cardiac Monitoring: An order was placed for continuous cardiac monitoring. The monitor shows a rate of 90 with sinus rhythm. -ECG: Sinus rhythm rate of 90 Normal axis No PVCs Nonspecific ST wave changes in the inferior leads Inferior Q waves QTc 455 -Laboratory studies:Interpreted by me as stated above in MDM and shown below. 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 Hypomagnesemia (Acute) Intellectual disability (Acute) Acute pyelonephritis (Acute) Colon distention (Acute) Abdominal distension (Acute) History of obstruction of large intestine Carpal tunnel syndrome, right Cervical radicular pain Bladder calculus Obstructed suprapubic catheter Chronic constipation with overflow incontinence Diarrhea Diabetes mellitus, type 2 Neuromuscular dysfunction of bladder Cough Encounter for pre-operative examination Hypokalemia VIKY (acute kidney injury) Acute dehydration (Acute) Infected pressure ulcer (Acute) Acute renal failure (Acute) Leukocytosis (Acute) Generalized weakness (Acute) Acute anemia (Acute) Cellulitis of right leg Constipation Skin tear of elbow without complication (Acute) Abrasion of knee, bilateral (Acute) Diabetic ulcer of right foot (Acute) Diabetic ulcer of left foot (Acute) Foot pain, right Clubfoot of right lower extremity Wound of right foot Gross hematuria Urinary retention Indwelling Hernandez catheter present Traumatic wound Pressure injury of sacral region, stage 2 (Acute) Paraplegia (Chronic) Acute confusion (Acute) Tachycardia (Acute) Discharge planning issues DVT prophylaxis Dehydration (Acute) DNR (do not resuscitate) Metabolic encephalopathy (Acute) UTI (urinary tract infection) due to urinary indwelling catheter (Acute) Acute UTI (urinary tract infection) (Acute) Sepsis (Acute) Spina bifida (Chronic) Cerebral palsy (Chronic) History of macrocytic anemia Hypertension Hyponatremia Tachypnea Elevated serum creatinine Complicated UTI (urinary tract infection) Weakness Cellulitis of left leg (Acute) Spina bifida (Chronic) Macrocytic anemia Catheter-associated urinary tract infection (Acute) Abdominal distension (gaseous) (Chronic) Hyperlipidemia Anemia Diabetes (Chronic) UTI (urinary tract infection) (Acute) Cerebral palsy Sepsis associated hypotension (Acute) Cellulitis of left lower extremity (Acute) Balanitis (Acute) Altered mental status (Acute) Dehydration (Acute) HTN (hypertension) (Chronic) Medical History [facility] resident [facility] [place] syndrome Urinary tract infection associated with indwelling urethral catheter Hx of sepsis History of pressure ulcer Hx of macrocytic anemia Chronic constipation with overflow incontinence Cervical radicular pain History of bladder stone Spina bifida Paraplegia Abdominal distension hx chronic intermittent abdominal distention History of cellulitis hx left lower extremity/recurrent cellulitis. History of sepsis Balanitis History of tachycardia Right club foot Cerebral palsy Hypertension Type 2 diabetes mellitus History of small bowel obstruction 10/2023 Cognitive communication deficit Acute kidney failure, unspecified Muscle weakness (generalized) Enterocolitis due to Clostridium difficile, recurrent onset 10/2021 Hyperlipidemia Benign prostatic hyperplasia with lower urinary tract symptoms Hx: UTI (urinary tract infection) complicated uti noted on faxed info. PVD (peripheral vascular disease) did not observe on faxed info. History of COVID-19 07/2022 Anemia hx macrocytic anemia Unspecified intellectual disabilities [facility] Suprapubic catheter Heart disease Per [facility] records Patient's sister (HIPAA contact) denies Surgical History History of carpal tunnel surgery of right wrist (11/2023) Presence of urogenital implants S/P cystoscopy cystolithopaxy w/ replacement suprapubic cath History of colonoscopy History of esophagogastroduodenoscopy (EGD) Presence of cardiac and vascular implant and graft Noted in [facility]p records with the associated date 2015, [facility]- no evidence of cardiac or vascular implant/graft noted at that time- no further details per available [facility] records Patient's sister (Maribeth, HIPAA contact) denies Family History Mother Peripheral vascular disease Other Cancer Diabetes Heart disease Hypertension Denies family history of Ovarian cancer Prostate cancer Myocardial infarction Breast cancer Colorectal cancer Social History Smoking Status: Former smoker Tobacco Type: Cigarettes Preferred Language: Bengali Communication Ability: Impaired Visual Impairment: No Limitations Hearing Ability: Hard of Hearing Damper Worker Required: No Beliefs That Will Affect Care: None marital status: Single Current Living Situation: Half-Way Current Living Situation Comment: [facility] current occupational status: disabled Feels Safe at Home: Yes Diet: regular caffeine: Yes during the past year weight has: remained stable Dental Care, Regularly: No Physical Activity Frequency: Does not Exercise Seatbelt Use: never Assistive Devices: Denture - Upper, Denture - Lower and Hearing Aid - Bilateral Allergies Allergies Allergy/AdvReac Type Severity Reaction Status Date / Time lisinopril Allergy Unknown Unknown Verified 07/30/24 22:16 sulfamethoxazole AdvReac Unknown Nausea Verified 07/30/24 22:16 [From Bactrim] trimethoprim [From Bactrim] AdvReac Unknown Nausea Verified 07/30/24 22:16 Home Meds Home Medications Medication Instructions Recorded Confirmed blood-glucose meter (OneTouch #1 ea 11/05/18 07/21/24 Verio Meter) cholecalciferol (vitamin D3) 25 3,000 units PO DAILY 11/05/18 07/30/24 mcg (1,000 unit) tablet linaclotide 72 mcg capsule 72 mcg PO 3XWK constipation 07/15/23 07/30/24 (Linzess) propranolol 120 mg capsule,24 120 mg PO QAM 07/15/23 07/30/24 hr,extended release (Inderal LA) sennosides 8.6 mg-docusate sodium 1 tab PO QAM constipation 10/14/23 07/30/24 50 mg tablet (Senokot-S) atorvastatin 20 mg tablet 20 mg PO HS 02/26/24 07/30/24 bisacodyl 10 mg rectal suppository 10 mg MN DAILY PRN Constipation 02/26/24 07/30/24 (Dulcolax (bisacodyl)) cyanocobalamin (vitamin B-12) 1,000 mcg IM MONTHLY 02/26/24 07/30/24 1,000 mcg/mL injection kit magnesium hydroxide 400 mg/5 mL 30 ml PO DAILY PRN Constipation 02/26/24 07/30/24 oral suspension (Milk of Magnesia) acetaminophen 325 mg tablet 650 mg PO Q6H PRN Pain/Fever 04/26/24 07/30/24 (Tylenol) magnesium chloride 64 mg 64 mg PO QAM 04/26/24 07/30/24 tablet,extended release sodium phosphates 19 gram-7 118 ml MN DAILY PRN Constipation 04/26/24 07/30/24 gram/118 mL enema (Fleet Enema) insulin glargine 100 unit/mL (3 30 unit subcut HS 07/22/24 07/30/24 mL) subcutaneous pen (Basaglar KwikPen U-100 Insulin) citric ac 1980.6 mg-glucono 59.4 30 ml irrigation TID 07/30/24 07/30/24 mg-mag carb 980.4 mg/30 mL irrig.soln (Renacidin) ondansetron HCl 4 mg tablet 4 mg PO Q6H PRN Nausea And Vomiting 07/30/24 07/30/24 promethazine 25 mg/mL injection 25 mg IM Q6H PRN Nausea And 07/30/24 07/30/24 syringe Vomiting Previous Rx's Medication Instructions Recorded Wheelchair (Manual) #1 ea 04/01/19 diaper,brief,adult,disposable #48 ea 06/30/19 blood sugar diagnostic (OneTouch #100 ea 04/10/20 Ultra Blue Test Strip) insulin aspart U-100 100 unit/mL 1 sliding scale dose SC ACHS #10 mL 12/22/23 subcutaneous solution (Novolog U-100 Insulin aspart) peg 3350-electrolytes 236 240 ml PO Q10M #4,000 mL 07/12/24 gram-22.74 gram-6.74 gram-5.86 gram solution (Golytely) Results & Data (ED) Vital Signs Vital Signs - 24 hr 07/30/24 19:05 07/30/24 19:09 07/30/24 19:19 Temperature 36.5 C Temperature Source Oral Pulse Rate 92 H 90 Pulse Rate from SpO2 Sensor 90 Respiratory Rate 26 H 25 H Respiratory Effort / Characteristics Non-Labored Spontaneous Respiratory Depth Normal Respiratory Pattern Regular Blood Pressure 158/110 H 158/110 H Blood Pressure Mean 126 126 Pulse Oximetry 95 95 95 Oxygen Delivery Method Room Air Room Air Sepsis Recent Fever Within 48 Hours No Sepsis New/Unexplained Change in Mental Status N/A Sepsis Action Taken by Nursing No Action Required 07/30/24 19:23 07/30/24 19:30 07/30/24 20:00 Temperature Temperature Source Pulse Rate 97 H 98 H 95 H Pulse Rate from SpO2 Sensor Respiratory Rate 26 H 26 H Respiratory Effort / Characteristics Respiratory Depth Respiratory Pattern Blood Pressure 115/74 Blood Pressure Mean 102 Pulse Oximetry 92 Oxygen Delivery Method Room Air Sepsis Recent Fever Within 48 Hours Sepsis New/Unexplained Change in Mental Status Sepsis Action Taken by Nursing 07/30/24 21:00 07/30/24 21:30 07/30/24 22:00 Temperature Temperature Source Pulse Rate 94 H 95 H 99 H Pulse Rate from SpO2 Sensor Respiratory Rate 22 22 22 Respiratory Effort / Characteristics Respiratory Depth Respiratory Pattern Blood Pressure 147/104 H 131/91 152/110 H Blood Pressure Mean 115 111 133 Pulse Oximetry 94 99 100 Oxygen Delivery Method Room Air Room Air Room Air Sepsis Recent Fever Within 48 Hours Sepsis New/Unexplained Change in Mental Status Sepsis Action Taken by Nursing 07/30/24 22:30 07/30/24 23:01 07/30/24 23:27 Temperature Temperature Source Pulse Rate 96 H 96 H 95 H Pulse Rate from SpO2 Sensor 95 H Respiratory Rate 21 20 Respiratory Effort / Characteristics Respiratory Depth Respiratory Pattern Blood Pressure 126/82 115/82 Blood Pressure Mean 96 90 Pulse Oximetry 95 96 Oxygen Delivery Method Sepsis Recent Fever Within 48 Hours Sepsis New/Unexplained Change in Mental Status Sepsis Action Taken by Nursing 07/30/24 23:30 Temperature Temperature Source Pulse Rate 98 H Pulse Rate from SpO2 Sensor 99 H Respiratory Rate 21 Respiratory Effort / Characteristics Respiratory Depth Respiratory Pattern Blood Pressure 119/85 Blood Pressure Mean 96 Pulse Oximetry 97 Oxygen Delivery Method Room Air Sepsis Recent Fever Within 48 Hours Sepsis New/Unexplained Change in Mental Status Sepsis Action Taken by Nursing Laboratory Data 07/30/24 19:50 02/21/25 19:50 Lab Results 07/30/24 07/30/24 07/30/24 Range/Units 19:50 19:58 20:12 WBC 15.24 H (4.8-10.8) K/ul RBC 5.39 (4.70-6.10) M/uL Hgb 16.9 (14.0-18.0) g/dl POC Hgb 16.0 (14.0-18.0) g/dl Hct 46.3 (42.0-52.0) % POC Hct 47 (42-52) % MCV 85.9 (80.0-100.0) fL MCH 31.4 (25.0-34.0) pg MCHC 36.5 H (32.0-36.0) g/dL RDW Std Deviation 43.4 (36.4-46.3) fL RDW Coeff of Renée 14.2 (11.5-14.5) % Plt Count 287 (130-400) K/uL MPV 9.4 (9.4-12.4) fL Immature Gran % (Auto) 0.3 % Neut % (Auto) 89.0 % Lymph % (Auto) 6.7 % Jessamine % (Auto) 3.7 % Eos % (Auto) 0.2 % Baso % (Auto) 0.1 % Neut # (Auto) 13.56 H (1.40-6.50) K/uL Lymph # (Auto) 1.02 L (1.20-3.40) K/uL Jessamine # (Auto) 0.57 (0.11-0.59) K/uL Eos # (Auto) 0.03 (0.00-0.50) K/uL Baso # (Auto) 0.02 (0.00-0.20) K/uL Immature Gran # (Auto) 0.04 (0.01-0.20) K/uL POC Sodium 135 (135-144) mmol/L Sodium 136 (136-145) mmol/L POC Potassium 4.5 (3.3-5.0) mmol/L Potassium 4.0 (3.5-5.1) mmol/L POC Chloride 97 L (101-112) mmol/L Chloride 93 L (98-107) mmol/L Carbon Dioxide 23 (21-32) mmol/L POC Total CO2 26 (24-31) mmol/L Anion Gap 20 H (3-11) POC Anion Gap 18.0 (16-25) mmol/L POC BUN 29 H (7-18) mg/dl BUN 23 (6-23) mg/dl Creatinine 0.96 (0.6-1.4) mg/dl POC Creatinine 1.0 (0.6-1.3) mg/dl Est Cr Clr Drug Dosing 74.7 ml/min eGFR 85.03 BUN/Creatinine Ratio 24.0 H (10-20) Glucose 307 H* (70-99(Fasting)) mg/dl POC Glucose (70-99) mg/dl POC Glucose (other) 305 H (70-99) mg/dl Calcium 9.9 (8.6-10.3) mg/dl POC Ioniz Calcium Pamella 1.02 L (1.12-1.32) mmol/l Total Bilirubin 2.3 H (0.2-1.0) mg/dl AST 24 (13-39) U/L ALT 18 (7-52) U/L Alkaline Phosphatase 121 H (34-104) U/L Total Protein 7.7 (6.0-8.3) gm/dl Albumin 4.7 (3.4-5.0) gm/dl Globulin 3.0 (2.5-4.0) gm/dl Albumin/Globulin Ratio 1.6 (0.9-2) Lipase 63 (11-82) U/L Urine Color Yellow Urine Appearance Cloudy A (Clear) Urine pH 5.5 (4.5-7.5) Ur Specific Melstone >= 1.030 (1.000-1.030) Urine Protein 2+ H (Negative) Urine Glucose (UA) Trace H (Negative) Urine Ketones 2+ H (Negative) Urine Blood 1+ H (Negative) Urine Nitrite Negative (Negative) Urine Bilirubin 1+ H (Negative) Urine Urobilinogen Negative (Negative) Ur Leukocyte Esterase 1+ H (Negative) Urine RBC 3-5 H (0-2) /hpf Urine WBC 21-50 H (0-5) /hpf Ur Epithelial Cells 0-2 (0-2) /hpf Amorphous Sediment Present A (None Prsent) Urine Bacteria 2+ H (None Seen) Urine Yeast Present A (None Prsent) 07/30/24 07/31/24 07/31/24 Range/Units 23:29 00:04 00:06 WBC (4.8-10.8) K/ul RBC (4.70-6.10) M/uL Hgb (14.0-18.0) g/dl POC Hgb (14.0-18.0) g/dl Hct (42.0-52.0) % POC Hct (42-52) % MCV (80.0-100.0) fL MCH (25.0-34.0) pg MCHC (32.0-36.0) g/dL RDW Std Deviation (36.4-46.3) fL RDW Coeff of Renée (11.5-14.5) % Plt Count (130-400) K/uL MPV (9.4-12.4) fL Immature Gran % (Auto) % Neut % (Auto) % Lymph % (Auto) % Jessamine % (Auto) % Eos % (Auto) % Baso % (Auto) % Neut # (Auto) (1.40-6.50) K/uL Lymph # (Auto) (1.20-3.40) K/uL Jessamine # (Auto) (0.11-0.59) K/uL Eos # (Auto) (0.00-0.50) K/uL Baso # (Auto) (0.00-0.20) K/uL Immature Gran # (Auto) (0.01-0.20) K/uL POC Sodium (135-144) mmol/L Sodium (136-145) mmol/L POC Potassium (3.3-5.0) mmol/L Potassium (3.5-5.1) mmol/L POC Chloride (101-112) mmol/L Chloride (98-107) mmol/L Carbon Dioxide (21-32) mmol/L POC Total CO2 (24-31) mmol/L Anion Gap (3-11) POC Anion Gap (16-25) mmol/L POC BUN (7-18) mg/dl BUN (6-23) mg/dl Creatinine (0.6-1.4) mg/dl POC Creatinine (0.6-1.3) mg/dl Est Cr Clr Drug Dosing ml/min eGFR BUN/Creatinine Ratio (10-20) Glucose (70-99(Fasting)) mg/dl POC Glucose 331 H* 315 H* 315 H* (70-99) mg/dl POC Glucose (other) (70-99) mg/dl Calcium (8.6-10.3) mg/dl POC Ioniz Calcium Pamella (1.12-1.32) mmol/l Total Bilirubin (0.2-1.0) mg/dl AST (13-39) U/L ALT (7-52) U/L Alkaline Phosphatase (34-104) U/L Total Protein (6.0-8.3) gm/dl Albumin (3.4-5.0) gm/dl Globulin (2.5-4.0) gm/dl Albumin/Globulin Ratio (0.9-2) Lipase (11-82) U/L Urine Color Urine Appearance (Clear) Urine pH (4.5-7.5) Ur Specific Mel[place] (1.000-1.030) Urine Protein (Negative) Urine Glucose (UA) (Negative) Urine Ketones (Negative) Urine Blood (Negative) Urine Nitrite (Negative) Urine Bilirubin (Negative) Urine Urobilinogen (Negative) Ur Leukocyte Esterase (Negative) Urine RBC (0-2) /hpf Urine WBC (0-5) /hpf Ur Epithelial Cells (0-2) /hpf Amorphous Sediment (None Prsent) Urine Bacteria (None Seen) Urine Yeast (None Prsent) Administered Medications Parenteral Electrolytes (Plasma-Lyte A Ph 7.4) 1,000 mls @ 80 mls/hr IV .[id number] SARAH Stop: 07/31/24 22:44 Last Admin: 07/30/24 23:28 Dose: 80 mls/hr Documented By: JORDANA Discontinued Medications Sodium Chloride (Nss) 1,000 mls @ 999 mls/hr IV .Q1H1M ONE Stop: 07/30/24 20:27 Last Infusion: 07/30/24 23:34 Dose: Infused Documented By: Admin: 07/30/24 19:59 Dose: 999 mls/hr Documented By: JORDANA Cefepime HCl (Maxipime 2000mg) 2,000 mg in 20 mls @ 5 mls/min IV NOW STA; Protocol Stop: 07/30/24 23:02 Last Admin: 07/30/24 23:28 Dose: 5 mls/min Documented By: JORDANA Insulin Aspart (Insulin Aspart Per Unit Charge) 5 units SC NOW STA Stop: 07/30/24 22:44 Last Admin: 07/30/24 23:28 Dose: 5 units Documented By: JORDANA Co-signed By: MORENA Ioversol (Optiray 320 100ml) 92 ml IV ONCE ONE Stop: 07/30/24 20:28 Last Admin: 07/30/24 20:27 Dose: 92 ml Documented By: OSCAR Ondansetron HCl (Ondansetron Inj 2 Mg/Ml 2 Ml Vial) 4 mg IV NOW STA Stop: 07/30/24 19:28 Last Admin: 07/30/24 19:58 Dose: 4 mg Documented By: JODRANA Imaging Data Radiologist's Impression: Abdomen/Pelvis CT 07/30/24 19:27 Exam(s): CT ABDOMEN + PELVIS With Contrast EXAM: CT Abdomen and Pelvis With Intravenous Contrast CLINICAL HISTORY: abd pain. TECHNIQUE: Axial computed tomography images of the abdomen and pelvis with intravenous contrast. CTDI is 25.52 mGy and DLP is 1354.72 mGy-cm. Automated exposure control was utilized for the study. A dose lowering technique was utilized adhering to the principles of ALARA. COMPARISON: CT abdomen and pelvis dated April 26, 2024 FINDINGS: Lung bases: Unremarkable. No mass. No consolidation. ABDOMEN: Liver: Unremarkable. No mass. Gallbladder and bile ducts: Calcification within the decompressed gallbladder is stable in appearance. No gallbladder wall thickening or biliary dilatation. Pancreas: Unremarkable. No mass. No ductal dilation. Spleen: Unremarkable. No splenomegaly. Adrenals: Unremarkable. No mass. Kidneys and ureters: The kidneys demonstrate normal enhancement. Similar cortical cysts noted bilaterally. No hydronephrosis with similar left pelviectasis. No ureteral stones. Stomach and bowel: Abnormal markedly dilated stomach, which is fluid and gas filled without gastric mucosal thickening. There is also abnormal fluid and gas dilated duodenum and multiple small bowel loops throughout the abdomen and pelvis which distends the abdomen. There is no clear transition point identified. However, the terminal ileum is asymmetrically completely decompressed. The colon is predominantly decompressed. However, the previously noted dilated sigmoid loop is similarly gas distended. PELVIS: Appendix: Status post appendectomy. Bladder: A suprapubic catheter is noted in position. The bladder is decompressed with similar bladder wall prominence. Reproductive: Unremarkable as visualized. ABDOMEN and PELVIS: Intraperitoneal space: Unremarkable. No free air. No significant fluid collection. Bones/joints: No acute fracture. No dislocation. Soft tissues: Unremarkable. Vasculature: Atherosclerotic calcification of the normal caliber aorta. No abdominal aortic aneurysm. Lymph nodes: Unremarkable. No enlarged lymph nodes. IMPRESSION: Abnormal markedly dilated stomach, which is fluid and gas filled without gastric mucosal thickening. There is also abnormal fluid and gas dilated duodenum and multiple small bowel loops throughout the abdomen and pelvis which distends the abdomen. There is no clear transition point identified. However, the terminal ileum is asymmetrically completely decompressed. While the appearance may represent chronic gastroenteritis, the appearance is concerning for a subtle distal small bowel obstruction. No pneumatosis or pneumoperitoneum. Electronically signed by: Jaquan Jara MD 07/30/24 21:58 PM KUB X-Ray 07/30/24 21:15 Exam(s): XR KUB EXAM: XR Abdomen, 1 View CLINICAL HISTORY: NG tube placement. TECHNIQUE: Frontal supine view of the abdomen/pelvis. COMPARISON: No relevant prior studies available. FINDINGS: Gastrointestinal tract: Prominent bowel gas in the superior abdomen. Detailed evaluation limited. Bones/joints: Unremarkable. No acute fracture. Tubes, lines and devices: The nasogastric tube is identified terminating the left upper quadrant, presumably in the proximal to mid body of the stomach. Other findings: The mediastinal contours are unremarkable, accounting for lordotic technique. No tracheal deviation. IMPRESSION: The nasogastric tube is identified terminating the left upper quadrant, presumably in the proximal to mid body of the stomach. Electronically signed by: Jaquan Jara MD 07/30/24 22:42 PM Discharge Plan Visit Data Chief Complaint: Abdominal Pain Stated Complaint: Distended Abdomen, Vomiting, Diarrhea ED Provider: Yosef Dahl Discharge Problem: Acute intestinal pseudo-obstruction, Abdominal pain, Vomiting Forms Stand Alone Forms: Webcom Prescriptions Prescriptions: No Action (DME) Wheelchair (Manual) Device See Dose Instructions .ROUTE .MEDSUPPLY Qty: 1 0RF Dose Instruction: As directed Rx Instructions: Wheelchair Repair (DME) diaper,brief,adult,disposable Misc See Dose Instructions .ROUTE .MEDSUPPLY Qty: 48 2RF Rx Instructions: As directed (DME) OneTouch Ultra Blue Test Strip Strip See Dose Instructions .ROUTE .MEDSUPPLY Qty: 100 5RF Dose Instruction: As directed Rx Instructions: Test once a day peg 3350-electrolytes [Golytely] 236-22.74-6.74 -5.86 gram recon soln 240 ml PO Q10M Qty: 4000 0RF Rx Instructions: Take per split dose instructions (DME) blood-glucose meter [OneTouch Verio Meter] mis See Dose Instructions .ROUTE .MEDSUPPLY Qty: 1 Rx Instructions: USE TO TEST 3-4 TIMES DAILY PRN cholecalciferol (vitamin D3) 1,000 unit tablet 3,000 units PO DAILY atorvastatin 20 mg tablet 20 mg PO HS magnesium hydroxide [Milk of Magnesia] 400 mg/5 mL suspension 30 ml PO DAILY PRN (Reason: Constipation) Rx Instructions: Milk of Mag 7.75%: Give 30ml by mouth as needed for constipation if no BM for 3 days. Administer on 7-3 shift bisacodyl [Dulcolax (bisacodyl)] 10 mg suppository 10 mg MN DAILY PRN (Reason: Constipation) Rx Instructions: Give on day 3 on 3-11 shift if no BM after MOM cyanocobalamin (vitamin B-12) 1,000 mcg/mL kit 1,000 mcg IM MONTHLY Rx Instructions: On the of every month propranolol [Inderal LA] 120 mg Capsule,Extended Release 24 Hr 120 mg PO QAM Linzess 72 mcg capsule 72 mcg PO 3XWK Patient Comments: Tu, Th, Sun - administer 30 min before meal Rx Instructions: one time daily , , friday...ADMINISTER 30 MIN BEFORE MEAL sennosides-docusate sodium [Senokot-S] 8.6-50 mg Tablet 1 tab PO QAM Rx Instructions: HOLD FOR LOOSE STOOLS insulin aspart U-100 [Novolog U-100 Insulin aspart] 100 unit/mL Solution 1 sliding scale dose SC ACHS Qty: 10 0RF Rx Instructions: 350-400 = 8units; 401-450 = 12 units; 451-500 = 16units; 501-550 = 18units; 551-1000 = 20units. --Goal BSG Range: Low 110 mg/dL, High 160 mg/dL --Correction Factor: 20 mg/dL/unit --Carbohydrate ratio = 10 g/unit --BSGs ACHS if eating, q6h if npo insulin glargine [Basaglar KwikPen U-100 Insulin] 100 unit/mL (3 mL) Insulin Pen 30 unit SUBCUT HS Patient Comments: 15 units qam/30 units at HS acetaminophen [Tylenol] 325 mg Tablet 650 mg PO Q6H MDD 3g/24hr PRN (Reason: Pain/Fever) magnesium chloride 64 mg Tablet Extended Release 64 mg PO QAM Fleet Enema 19-7 gram/118 mL Enema 118 ml MN DAILY PRN (Reason: Constipation) Rx Instructions: Give if no BM after dulcolax on day 4 ; administer on 7-3 shift ondansetron HCl 4 mg Tablet 4 mg PO Q6H PRN (Reason: Nausea And Vomiting) promethazine 25 mg/mL Syringe 25 mg IM Q6H PRN (Reason: Nausea And Vomiting) Renacidin 1,980.6 mg-59.4 mg-980.4mg/30mL solution 30 ml irrigation TID Rx Instructions: Instill 30 ml into bladder; clamp for 10 minutes, then remove clamp and drain bladder. Repeat 3 times daily. Referrals Referrals: [facility] [Primary Care Provider] - Discharge Problem: Abdominal pain Qualifiers: Abdominal location: unspecified location Qualified Code(s): R10.9 - Unspecified abdominal pain Vomiting Qualifiers: Vomiting type: unspecified Nausea presence: unspecified Qualified Code(s): R 11.10 - Vomiting, unspecified
[2024-07-30] MEDS: ONDANSETRON INJ 2 MG/ML 2 ML VIAL IV STA (19:58)
[2024-07-30] MEDS: SODIUM CHLORIDE 0.9% 1,000 ML IV ONE (19:59)
[2024-07-30 20:10] LABS: Basophils # (auto) 0.02 K/uL (0.00-0.20); Basophils % (auto) 0.1 %; Eosinophils # (auto) 0.03 K/uL (0.00-0.50); Eosinophils % (auto) 0.2 %; Hematocrit (blood only) 46.3 % (42.0-52.0); Hemoglobin 16.9 g/dl (14.0-18.0); Immature Granulocytes # (auto) 0.04 K/uL (0.01-0.20); Immature Granulocytes % (auto) 0.3 %; Lymphocytes # (auto) 1.02 K/uL (1.20-3.40); Lymphocytes % (auto) 6.7 %; Mean Corpuscular Hemoglobin 31.4 pg (25.0-34.0); Mean Corpuscular Hgb Conc 36.5 g/dL (32.0-36.0); Mean Corpuscular Volume 85.9 fL (80.0-100.0); Mean Platelet Volume 9.4 fL (9.4-12.4); Monocytes # (auto) 0.57 K/uL (0.11-0.59); Monocytes % (auto) 3.7 %; Neutrophils # (auto) 13.56 K/uL (1.40-6.50); Platelet Count 287 K/uL (130-400); RDW Coefficient of Variation 14.2 % (11.5-14.5); RDW Standard Deviation 43.4 fL (36.4-46.3); Red Blood Count 5.39 M/uL (4.70-6.10); White Blood Count 15.24 K/ul (4.8-10.8)
[2024-07-30 20:14] LABS: iSTAT Ionized Calcium 1.02 mmol/l (1.12-1.32); iSTAT Potassium 4.5 mmol/L (3.3-5.0)
[2024-07-30 20:24] LABS: Appearance Urine Cloudy (Clear); Bilirubin Urine 1+ (Negative); Blood Urine 1+ (Negative); Color Urine Yellow; Glucose Urine UA Trace (Negative); Ketones Urine 2+ (Negative); Leukocyte Esterase Urine 1+ (Negative); Nitrite Urine Negative (Negative); Protein Urine 2+ (Negative); Specific Gravity Urine >= 1.030 (1.000-1.030); Urobilinogen Urine Negative (Negative); pH Urine 5.5 (4.5-7.5)
[2024-07-30] MEDS: OPTIRAY 320 100ml IV ONE (20:27)
[2024-07-30 20:30] LABS: Albumin Globulin Ratio 1.6 (0.9-2); Albumin Level 4.7 gm/dl (3.4-5.0); Bilirubin,Total 2.3 mg/dl (0.2-1.0); Calcium 9.9 mg/dl (8.6-10.3); Creatinine Clr Calc Pharmacy 74.7 ml/min; Total Protein 7.7 gm/dl (6.0-8.3)
[2024-07-30 20:34] LABS: Amorphous Sediment Urine Present (None Prsent); Bacteria Urine 2+ (None Seen); Epithelial Cell Urine 0-2 /hpf (0-2); WBC Urine 21-50 /hpf (0-5)
--- NOTE | 2024-07-30 21:59 | CT Scan Report ---
Exam(s): CT ABDOMEN + PELVIS With Contrast EXAM: CT Abdomen and Pelvis With Intravenous Contrast CLINICAL HISTORY: abd pain. TECHNIQUE: Axial computed tomography images of the abdomen and pelvis with intravenous contrast. CTDI is 25.52 mGy and DLP is 1354.72 mGy-cm. Automated exposure control was utilized for the study. A dose lowering technique was utilized adhering to the principles of ALARA. COMPARISON: CT abdomen and pelvis dated April 26, 2024 FINDINGS: Lung bases: Unremarkable. No mass. No consolidation. ABDOMEN: Liver: Unremarkable. No mass. Gallbladder and bile ducts: Calcification within the decompressed gallbladder is stable in appearance. No gallbladder wall thickening or biliary dilatation. Pancreas: Unremarkable. No mass. No ductal dilation. Spleen: Unremarkable. No splenomegaly. Adrenals: Unremarkable. No mass. Kidneys and ureters: The kidneys demonstrate normal enhancement. Similar cortical cysts noted bilaterally. No hydronephrosis with similar left pelviectasis. No ureteral stones. Stomach and bowel: Abnormal markedly dilated stomach, which is fluid and gas filled without gastric mucosal thickening. There is also abnormal fluid and gas dilated duodenum and multiple small bowel loops throughout the abdomen and pelvis which distends the abdomen. There is no clear transition point identified. However, the terminal ileum is asymmetrically completely decompressed. The colon is predominantly decompressed. However, the previously noted dilated sigmoid loop is similarly gas distended. PELVIS: Appendix: Status post appendectomy. Bladder: A suprapubic catheter is noted in position. The bladder is decompressed with similar bladder wall prominence. Reproductive: Unremarkable as visualized. ABDOMEN and PELVIS: Intraperitoneal space: Unremarkable. No free air. No significant fluid collection. Bones/joints: No acute fracture. No dislocation. Soft tissues: Unremarkable. Vasculature: Atherosclerotic calcification of the normal caliber aorta. No abdominal aortic aneurysm. Lymph nodes: Unremarkable. No enlarged lymph nodes. IMPRESSION: Abnormal markedly dilated stomach, which is fluid and gas filled without gastric mucosal thickening. There is also abnormal fluid and gas dilated duodenum and multiple small bowel loops throughout the abdomen and pelvis which distends the abdomen. There is no clear transition point identified. However, the terminal ileum is asymmetrically completely decompressed. While the appearance may represent chronic gastroenteritis, the appearance is concerning for a subtle distal small bowel obstruction. No pneumatosis or pneumoperitoneum. Electronically signed by: Jaquan Jara MD 07/30/24 21:58 PM
--- NOTE | 2024-07-30 22:13 | History & Physical Report ---
Date of Service July 30, 2024 Assessment & Plan (1) Small bowel obstruction: (2) Hyperglycemia: (3) Acute UTI: Plan 68-year-old male PMHx paralytic ileus, intellectual disability, CP, T2DM on insulin, paraplegia, and chronic UTI w/ suprapubic catheter who presents to the ED for nausea and vomiting with associated abdominal pain. States that he was prepping for colonoscopy the day prior to arrival into the day of arrival and noticed that he was having vomiting with belly pain and distention. ED evaluation reveals leukocytosis 15.24, stable H&H, chloride 93, anion gap 20, BUN/creatinine ratio 24, initial glucose 307, bilirubin 2.3, alk phos 121, UA with bacteria, LE, WBC and RBC as well as yeast and sediment. CTAP abnormally markedly dilated stomach no mucosal thickening, terminal ileum asymmetry completely depressed, distal SBO; pending KUB s/p NG tube placement. Provided with NSS and Zofran in ED. #Abdominal pain/ SBO Patient was prepping for colonoscopy, sudden onset of severe abdominal pain with N/V x 7 times and diarrhea. History significant for paralytic ileus and prior perforation. - CBC WBC 15.24; CMP Cl 93, AG 20, ratio 24; Glucose 307; Bili 2.3, alk phos 121; UA w/ signs of infection + yeast (catheter a baseline); AG suspected to be elevated 2/2 GI losses/dehydration - CTAP dilated stomach, terminal ileum base of injury, depressed, distal SBO; pending post-NG tube KUB - NPO- IVF w/ Plasma-Lyte @ 80mL/hr - Zofran as needed IV - Surgery consulted - NG tube placed - Appreciate input and recs #Hyperglycemia/T2DM History of DMT2, on sliding scale NovoLog and glargine 30 units at night. Initial glucose 307, repeat 305. - Most recent A1C 04/2024 @ 9.1% - SSI with target BSG range 110-160mg/dL, CF 20, carb ratio 10; 350-400 = 8units; 401-450 = 12 units; 451-500 = 16units; 501-550 = 18units; 551-1000 = 20units. - 5U x 1 for hyperglycemia at admission, pending repeat glucose; Glargine 15 BID - BSG ACHS if eating, q6h if npo - Pharm glycemic management consult placed, appreciate assistance- adjust regimen as needed #UTI/Catheter Catheter at baseline 2/2 paraplegia, no problems concerning. H/o Pseudomonas on prior urine cx. - UA cloudy, presence of ketones, LE, RBC, RBC, bacteria, and yeast. CTAP w/o cystitis noted - Pending cx - Start cefepime #HTN- Propranolol #HLD- Atorvastatin #Chronic constipation, overflow incontinence- Linzess (3x/wk, /), magnesium hydroxide, Senokot - Held at admission Dispo: Admit, med/sx VTE prophylaxis: Lovenox This document was dictated utilizing [employer]. Please excuse any grammatical errors that may be secondary to use of this software. Admission and Anticipated Discharge Date Admission Date: 07/30/2024 History of Present Illness Chief Complaint: Abdominal pain Primary Care Provider: [facility] 68-year-old male PMHx paralytic ileus, intellectual disability, diabetes, and paraplegia who presents to the ED for nausea and vomiting. States that he was prepping for colonoscopy the day prior to arrival into the day of arrival and noticed that he was having vomiting with belly pain and distention. Vomit was yellow and brown in nature and occurred around 7 times per patient. He was also having some diarrhea for a few days [employer]. Patient with a significant history of perforation in the past. Current abdominal pain is rated at 8 out of 10 on the pain scale with the maximum being 9 out of 10, spreading across entire abdomen. States that he is fatigued but no other complaints at this time. Denying chest pain, shortness of breath, palpitation, numbness/tingling, LUTS, or fever/chills. History is somewhat limited. ED evaluation reveals leukocytosis 15.24, stable H&H, chloride 93, anion gap 20, BUN/creatinine ratio 24, initial glucose 307, bilirubin 2.3, alk phos 121, UA with bacteria, LE, WBC and RBC as well as yeast and sediment. CTAP abnormally markedly dilated stomach no mucosal thickening, terminal ileum asymmetry completely depressed, distal SBO; pending KUB s/p NG tube placement. Provided with NSS and Zofran in ED. Please see Dr. Landaverde's attestation for adjustments/additions to treatment plan. Allergies Allergy/AdvReac Type Severity Reaction Status Date / Time lisinopril Allergy Unknown Unknown Verified 07/30/24 22:16 sulfamethoxazole AdvReac Unknown Nausea Verified 07/30/24 22:16 [From Bactrim] trimethoprim [From Bactrim] AdvReac Unknown Nausea Verified 07/30/24 22:16 Home Medications Medication Instructions Recorded Confirmed Type blood-glucose meter (OneTouch #1 ea 11/05/18 07/21/24 History Verio Meter) cholecalciferol (vitamin D3) 25 3,000 units PO DAILY 11/05/18 07/30/24 History mcg (1,000 unit) tablet Wheelchair (Manual) #1 ea 04/01/19 07/21/24 Rx diaper,brief,adult,disposable #48 ea 06/30/19 07/21/24 Rx blood sugar diagnostic (OneTouch #100 ea 04/10/20 07/21/24 Rx Ultra Blue Test Strip) linaclotide 72 mcg capsule 72 mcg PO 3XWK constipation 07/15/23 07/30/24 History (Linzess) propranolol 120 mg capsule,24 120 mg PO QAM 07/15/23 07/30/24 History hr,extended release (Inderal LA) sennosides 8.6 mg-docusate sodium 1 tab PO QAM constipation 10/14/23 07/30/24 History 50 mg tablet (Senokot-S) insulin aspart U-100 100 unit/mL 1 sliding scale dose SC ACHS #10 mL 12/22/23 07/30/24 Rx subcutaneous solution (Novolog U-100 Insulin aspart) atorvastatin 20 mg tablet 20 mg PO HS 02/26/24 07/30/24 History bisacodyl 10 mg rectal suppository 10 mg KS DAILY PRN Constipation 02/26/24 07/30/24 History (Dulcolax (bisacodyl)) cyanocobalamin (vitamin B-12) 1,000 mcg IM MONTHLY 02/26/24 07/30/24 History 1,000 mcg/mL injection kit magnesium hydroxide 400 mg/5 mL 30 ml PO DAILY PRN Constipation 02/26/24 07/30/24 History oral suspension (Milk of Magnesia) acetaminophen 325 mg tablet 650 mg PO Q6H PRN Pain/Fever 04/26/24 07/30/24 History (Tylenol) magnesium chloride 64 mg 64 mg PO QAM 04/26/24 07/30/24 History tablet,extended release sodium phosphates 19 gram-7 118 ml KS DAILY PRN Constipation 04/26/24 07/30/24 History gram/118 mL enema (Fleet Enema) peg 3350-electrolytes 236 240 ml PO Q10M #4,000 mL 07/12/24 07/30/24 Rx gram-22.74 gram-6.74 gram-5.86 gram solution (Golytely) insulin glargine 100 unit/mL (3 30 unit subcut HS 07/22/24 07/30/24 History mL) subcutaneous pen (Basaglar KwikPen U-100 Insulin) citric ac 1980.6 mg-glucono 59.4 30 ml irrigation TID 07/30/24 07/30/24 History mg-mag carb 980.4 mg/30 mL irrig.soln (Renacidin) ondansetron HCl 4 mg tablet 4 mg PO Q6H PRN Nausea And Vomiting 07/30/24 07/30/24 History promethazine 25 mg/mL injection 25 mg IM Q6H PRN Nausea And 07/30/24 07/30/24 History syringe Vomiting Past Med/Surg History Problem List (Updated 07/31/24 @ 00:41 by Yoesf Dahl DO) Vomiting (Acute) Abdominal pain (Acute) Acute intestinal pseudo-obstruction (Acute) Small bowel obstruction Otorrhea Tympanic membrane perforation Cerumen impaction Chronic diarrhea 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 Hypomagnesemia (Acute) Intellectual disability (Acute) Acute pyelonephritis (Acute) Colon distention (Acute) Abdominal distension (Acute) History of obstruction of large intestine Carpal tunnel syndrome, right Cervical radicular pain Bladder calculus Obstructed suprapubic catheter Chronic constipation with overflow incontinence Diarrhea Diabetes mellitus, type 2 Neuromuscular dysfunction of bladder Cough Encounter for pre-operative examination Hypokalemia VIKY (acute kidney injury) Acute dehydration (Acute) Infected pressure ulcer (Acute) Acute renal failure (Acute) Leukocytosis (Acute) Generalized weakness (Acute) Acute anemia (Acute) Cellulitis of right leg Constipation Skin tear of elbow without complication (Acute) Abrasion of knee, bilateral (Acute) Diabetic ulcer of right foot (Acute) Diabetic ulcer of left foot (Acute) Foot pain, right Clubfoot of right lower extremity Wound of right foot Gross hematuria Urinary retention Indwelling Hernandez catheter present Traumatic wound Pressure injury of sacral region, stage 2 (Acute) Paraplegia (Chronic) Acute confusion (Acute) Tachycardia (Acute) Discharge planning issues DVT prophylaxis Dehydration (Acute) DNR (do not resuscitate) Metabolic encephalopathy (Acute) UTI (urinary tract infection) due to urinary indwelling catheter (Acute) Acute UTI (urinary tract infection) (Acute) Sepsis (Acute) Spina bifida (Chronic) Cerebral palsy (Chronic) History of macrocytic anemia Hypertension Hyponatremia Tachypnea Elevated serum creatinine Complicated UTI (urinary tract infection) Weakness Cellulitis of left leg (Acute) Spina bifida (Chronic) Macrocytic anemia Catheter-associated urinary tract infection (Acute) Abdominal distension (gaseous) (Chronic) Hyperlipidemia Anemia Diabetes (Chronic) UTI (urinary tract infection) (Acute) Cerebral palsy Sepsis associated hypotension (Acute) Cellulitis of left lower extremity (Acute) Balanitis (Acute) Altered mental status (Acute) Dehydration (Acute) HTN (hypertension) (Chronic) Medical History [facility] 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 History of sepsis Balanitis History of tachycardia Right club foot Cerebral palsy Hypertension Type 2 diabetes mellitus History of small bowel obstruction 10/2023 Cognitive communication deficit Acute kidney failure, unspecified Muscle weakness (generalized) Enterocolitis due to Clostridium difficile, recurrent onset 10/2021 Hyperlipidemia Benign prostatic hyperplasia with lower urinary tract symptoms Hx: UTI (urinary tract infection) complicated uti noted on faxed info. PVD (peripheral vascular disease) did not observe on faxed info. History of COVID-19 07/2022 Anemia hx macrocytic anemia Unspecified intellectual disabilities [facility] Suprapubic catheter Heart disease Per [facility] records Patient's sister (HIPAA contact) denies Surgical History History of carpal tunnel surgery of right wrist (11/2023) Presence of urogenital implants S/P cystoscopy cystolithopaxy w/ replacement suprapubic cath History of colonoscopy History of esophagogastroduodenoscopy (EGD) Presence of cardiac and vascular implant and graft Noted in [facility] records with the associated date 2015, patient was with [facility] PCP at that time- no evidence of cardiac or vascular implant/graft noted at that time- no further details per available [facility] records Patient's sister (Maribeth, HIPAA contact) denies Family History Mother Peripheral vascular disease Other Cancer Diabetes Heart disease Hypertension Denies family history of Ovarian cancer Prostate cancer Myocardial infarction Breast cancer Colorectal cancer Social History Smoking Status: Former smoker Tobacco Type: Cigarettes Hx Alcohol Use: No Hx Substance Use: No Preferred Language: Yi Communication Ability: Effective Visual Impairment: No Limitations Hearing Ability: Hard of Hearing 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 Beliefs That Will Affect Care: None marital status: Single Current Living Situation: Group Home Current Living Situation Comment: [facility] current occupational status: disabled Other Information That Helps Us Care for You: No Feels Safe at Home: Yes Safety Concerns: Feels Safe At This Time Diet: regular caffeine: Yes during the past year weight has: remained stable Dental Care, Regularly: No Physical Activity Frequency: Does not Exercise Seatbelt Use: never Assistive Devices: Denture - Upper, Denture - Lower, Hospital Bed and Wheelc hair Review of Systems Review of Systems: All systems reviewed & are unremarkable except as noted in Subjective Physical Exam Physical Exam: General: No acute distress Skin: Warm and dry Head: Normocephalic, atraumatic Eyes: PERRL, conjunctivae clear, sclera non-icteric ENT: External ear and ear canal without swelling; nose atraumatic, NG tube in place; fair dentition, tongue normal appearance, pharynx normal but dry Neck: Supple, no LAD Cardio: RRR, no M/G/R, S1 and S2 normal Resp: No respiratory distress, Lungs CTA in all lobes bilaterally, no wheezes, rales, or rhonchi Abdomen: Soft, symmetric, nontender; Diffuse distention; No masses or hepatosplenomegaly; Bowel sounds normoactive MSK: No deformities; Pulses palpable and equal; no edema. Neuro: Awake, alert; CN grossly intact Psych: Appropriate mood and affect; good judgement and insight. Results & Data Results & Data Vital Signs (Past 12 Hours) Vital Signs Temp Pulse Resp BP Pulse Ox O2 Del Method 07/30/24 20:00 95 H 26 H 115/74 92 Room Air 07/30/24 19:30 98 H 26 H 07/30/24 19:23 97 H 07/30/24 19:19 95 Room Air 07/30/24 19:09 90 25 H 158/110 H 95 07/30/24 19:05 36.5 C 92 H 26 H 158/110 H 95 Room Air Laboratory Results 07/30/24 20:12 Urine Culture - Pending Urine,Straight Cath 07/30/24 07/30/24 07/30/24 20:12 19:58 19:50 WBC 15.24 H RBC 5.39 Hgb 16.9 POC Hgb 16.0 Hct 46.3 POC Hct 47 MCV 85.9 MCH 31.4 MCHC 36.5 H RDW Std Deviation 43.4 RDW Coeff of Renée 14.2 Plt Count 287 MPV 9.4 Immature Gran % (Auto) 0.3 Neut % (Auto) 89.0 Lymph % (Auto) 6.7 [place] % (Auto) 3.7 Eos % (Auto) 0.2 Baso % (Auto) 0.1 Neut # (Auto) 13.56 H Lymph # (Auto) 1.02 L [place] # (Auto) 0.57 Eos # (Auto) 0.03 Baso # (Auto) 0.02 Immature Gran # (Auto) 0.04 POC Sodium 135 Sodium 136 POC Potassium 4.5 Potassium 4.0 POC Chloride 97 L Chloride 93 L Carbon Dioxide 23 POC Total CO2 26 Anion Gap 20 H POC Anion Gap 18.0 POC BUN 29 H BUN 23 Creatinine 0.96 POC Creatinine 1.0 Est Cr Clr Drug Dosing 74.7 eGFR 85.03 BUN/Creatinine Ratio 24.0 H Glucose 307 H* POC Glucose (other) 305 H Calcium 9.9 POC Ioniz Calcium Pamella 1.02 L Total Bilirubin 2.3 H AST 24 ALT 18 Alkaline Phosphatase 121 H Total Protein 7.7 Albumin 4.7 Globulin 3.0 Albumin/Globulin Ratio 1.6 Lipase 63 Urine Color Yellow Urine Appearance Cloudy A Urine pH 5.5 Ur Specific Avery >= 1.030 Urine Protein 2+ H Urine Glucose (UA) Trace H Urine Ketones 2+ H Urine Blood 1+ H Urine Nitrite Negative Urine Bilirubin 1+ H Urine Urobilinogen Negative Ur Leukocyte Esterase 1+ H Urine RBC 3-5 H Urine WBC 21-50 H Ur Epithelial Cells 0-2 Amorphous Sediment Present A Urine Bacteria 2+ H Urine Yeast Present A Diagnostic Findings Abdomen/Pelvis CT 07/30/24 19:27 Exam(s): CT ABDOMEN + PELVIS With Contrast EXAM: CT Abdomen and Pelvis With Intravenous Contrast CLINICAL HISTORY: abd pain. TECHNIQUE: Axial computed tomography images of the abdomen and pelvis with intravenous contrast. CTDI is 25.52 mGy and DLP is 1354.72 mGy-cm. Automated exposure control was utilized for the study. A dose lowering technique was utilized adhering to the principles of ALARA. COMPARISON: CT abdomen and pelvis dated April 26, 2024 FINDINGS: Lung bases: Unremarkable. No mass. No consolidation. ABDOMEN: Liver: Unremarkable. No mass. Gallbladder and bile ducts: Calcification within the decompressed gallbladder is stable in appearance. No gallbladder wall thickening or biliary dilatation. Pancreas: Unremarkable. No mass. No ductal dilation. Spleen: Unremarkable. No splenomegaly. Adrenals: Unremarkable. No mass. Kidneys and ureters: The kidneys demonstrate normal enhancement. Similar cortical cysts noted bilaterally. No hydronephrosis with similar left pelviectasis. No ureteral stones. Stomach and bowel: Abnormal markedly dilated stomach, which is fluid and gas filled without gastric mucosal thickening. There is also abnormal fluid and gas dilated duodenum and multiple small bowel loops throughout the abdomen and pelvis which distends the abdomen. There is no clear transition point identified. However, the terminal ileum is asymmetrically completely decompressed. The colon is predominantly decompressed. However, the previously noted dilated sigmoid loop is similarly gas distended. PELVIS: Appendix: Status post appendectomy. Bladder: A suprapubic catheter is noted in position. The bladder is decompressed with similar bladder wall prominence. Reproductive: Unremarkable as visualized. ABDOMEN and PELVIS: Intraperitoneal space: Unremarkable. No free air. No significant fluid collection. Bones/joints: No acute fracture. No dislocation. Soft tissues: Unremarkable. Vasculature: Atherosclerotic calcification of the normal caliber aorta. No abdominal aortic aneurysm. Lymph nodes: Unremarkable. No enlarged lymph nodes. IMPRESSION: Abnormal markedly dilated stomach, which is fluid and gas filled without gastric mucosal thickening. There is also abnormal fluid and gas dilated duodenum and multiple small bowel loops throughout the abdomen and pelvis which distends the abdomen. There is no clear transition point identified. However, the terminal ileum is asymmetrically completely decompressed. While the appearance may represent chronic gastroenteritis, the appearance is concerning for a subtle distal small bowel obstruction. No pneumatosis or pneumoperitoneum. Electronically signed by: Jaquan Jara MD 07/30/24 21:58 PM Medications Administered NSS 1L Zofran 4 mg IV ECG Additional Comments: Normal sinus rhythm 90 bpm, KS 172, QRS 92, QT/QTc 372/455, PRT 55/26/39 Supervising Physician Co-Signing Physician Notes Attending addendum: I have physically seen this patient, have supervised the ARMANI's activities, and agree with the H&P unless as otherwise noted. Assessment and Plan: The patient is a 68-year-old male with past medical history including paralytic ileus, intellectual disability, chest pain, days mellitus type II on insulin, paraplegia, chronic UTI with suprapubic catheter, presents to the emergency department with nausea, vomiting and abdominal pain. He reports that he was prepping for colonoscopy the day prior to arrival to the ED, and has been having vomiting with belly pain and distention since that time. Workup in the emergency department included CT scan abdomen pelvis that shows an abnormally markedly dilated stomach with no mucosal thickening, terminal ileum with asymmetry completely depressed, distal SBO. Patient received normal saline bolus and Zofran from the ED, [facility]. #Small bowel obstruction- Brought on by preparation for colonoscopy Multiple episodes of nausea vomiting diarrhea and severe abdominal pain N.p.o. IV fluids as noted Zofran 4 mg IV every 6 hours as needed Zosyn 4.5 g IV every 8 hours Pantoprazole 40 mg IV daily General Surgery consult #Hyperglycemia/diabetes mellitus- Glucose 307 on admission Patient will be n.p.o. as noted Accu-Cheks as noted Pharmacy glycemic consult placed #Urinary tract infection with catheter- History of Pseudomonas on previous infections Follow urine culture and sensitivity Placed on cefepime 2 g IV every 12 hours Remaining orders and notations as noted PG Care Time/CCT Total # of Minutes Spent Total Time Spent with Patient: Total time spent is greater than 50% in coordination of care (as documented) at patient's floor/unit and/or counseling patient: Coding Level of Care Code 57019 INT INP/OBS CARE MIN Diagnoses Small bowel obstruction K56.609 Hyperglycemia R73.9 Acute UTI N39.0
--- NOTE | 2024-07-30 22:15 | Surgery Consultation ---
Date of Consultation July 30, 2024 Assessment & Plan (1) Colon distention: (2) Small bowel obstruction: I discussed with the treating emergency room physician the patient is going to be admitted on the hospitalist service. From surgery perspective we recommend the following: Keep patient n.p.o. for the present time Provide IV fluid for hydration Follow serial labs Although the patient was not having any nausea at the time of my interview, his abdomen was firm and distended and due to the appearance of his stomach on CAT scan I feel he would benefit from an NG tube. The treating emergency room physician has ordered this modality and should be placed to low continuous suction Would recommend obtaining a GI consultation to see if they feel colonic decompression endoscopically would be beneficial At the time of my interview the patient did not have any peritoneal signs. He was nontoxic-appearing and there is no pneumatosis or free air noted on CT scan therefore I feel a trial of conservative management is best first treatment line Will continue to follow the patient while he is hospitalized with additional recommendations to follow based on his clinical course as unfolds Addendum: After my initial visit with the patient the nurses were able to successfully place an NG tube. They retrieved approximately 1 L of gastric contents. The patient's abdomen remains distended but is less firm since the NG tube has been placed. The patient does note that his abdomen feels more comfortable since NG tube has been placed. Will continue with plan as noted above History of Present Illness Reason for Consultation: Bowel obstruction History of Present Illness This is a 68-year-old male who is known to [facility] general surgery. The patient was seen in consultation during a multiple hospitalizations. His most recent hospitalization was in April 2024. At this time surgery was consulted as patient was noted to have colonic distention. This man does have a history of underlying cerebral palsy and paraplegia. At that time the patient was having diarrhea and increased abdominal distention and there was concern that he had a bowel obstruction. At that time the patient had CT imaging performed which showed diffuse gaseous distention of the colon with no evidence of obstruction or volvulus. The patient was treated successfully in a conservative manner. As the patient does have a history of chronic colonic inertia he was seen by gastroenterology and colonoscopy was recommended. This colonoscopy was attempted in April 2024 however he had a poor bowel prep and the study could not be completed. In anticipation for repeat colonoscopy the patient has been on a liquid diet and it was in the process of receiving his bowel prep when his abdomen became more distended. Patient also had some nausea and vomiting. He does note that he has been having small liquid bowel movements. Because of his worsening abdominal distention he was sent to the emergency department for further evaluation. In the emergency department he had labs and imaging which I independently reviewed. A CT scan of the abdomen pelvis was performed. The patient was noted to have a markedly dilated stomach which was fluid and gas-filled. He was also noted to have dilated duodenum and multiple small bowel loops throughout the abdomen and pelvis. There is no clear to transition point noted, but the terminal ileum appeared incompletely decompressed raising the concern for possible distal small bowel obstruction. There is no pneumatosis or free air noted on this study. A CBC revealed white blood cell count was elevated 15.2. Hemoglobin and hematocrit as well as the platelet count were normal. Chemistry profile showed sodium and potassium were normal. Patient's BUN and creatinine were normal as well. The urinalysis was negative for nitrites but did have 1+ leukocyte Estrace and 21-50 white blood cells per high-power field and 2+ bacteria as well as yeast. At the time of my interview the patient was in no distress Allergies Allergy/AdvReac Type Severity Reaction Status Date / Time lisinopril Allergy Unknown Unknown Verified 07/30/24 22:16 sulfamethoxazole AdvReac Unknown Nausea Verified 07/30/24 22:16 [From Bactrim] trimethoprim [From Bactrim] AdvReac Unknown Nausea Verified 07/30/24 22:16 Home Medications Medication Instructions Recorded Confirmed Type blood-glucose meter (OneTouch #1 ea 11/05/18 07/21/24 History Verio Meter) cholecalciferol (vitamin D3) 25 3,000 units PO HS 11/05/18 07/22/24 History mcg (1,000 unit) tablet Wheelchair (Manual) #1 ea 04/01/19 07/21/24 Rx diaper,brief,adult,disposable #48 ea 06/30/19 07/21/24 Rx blood sugar diagnostic (OneTouch #100 ea 04/10/20 07/21/24 Rx Ultra Blue Test Strip) linaclotide 72 mcg capsule 72 mcg PO 3XWK constipation 07/15/23 07/22/24 History (Linzess) propranolol 120 mg capsule,24 120 mg PO QAM 07/15/23 07/22/24 History hr,extended release (Inderal LA) sennosides 8.6 mg-docusate sodium 1 tab-cap PO QAM 10/14/23 07/22/24 History 50 mg tablet (Senokot-S) insulin aspart U-100 100 unit/mL 1 sliding scale dose SC ACHS #10 mL 12/22/23 07/22/24 Rx subcutaneous solution (Novolog U-100 Insulin aspart) citric ac 1980.6 mg-glucono 59.4 30 ml intravesical TID #900 mL 02/11/24 07/22/24 Rx mg-mag carb 980.4 mg/30 mL irrig.soln (Renacidin) atorvastatin 20 mg tablet 20 mg PO HS 02/26/24 07/22/24 History bisacodyl 10 mg rectal suppository 10 mg IN DAILY PRN Constipation 02/26/24 07/22/24 History (Dulcolax (bisacodyl)) cyanocobalamin (vitamin B-12) 1,000 mcg IM MONTHLY 02/26/24 07/22/24 History 1,000 mcg/mL injection kit magnesium hydroxide 400 mg/5 mL 30 ml PO DAILY PRN Constipation 02/26/24 07/22/24 History oral suspension (Milk of Magnesia) acetaminophen 325 mg tablet 650 mg PO Q6H PRN Pain/Fever 04/26/24 07/22/24 History (Tylenol) magnesium chloride 64 mg 64 mg PO QAM 04/26/24 07/22/24 History tablet,extended release sodium phosphates 19 gram-7 118 ml IN DAILY PRN Constipation 04/26/24 07/22/24 History gram/118 mL enema (Fleet Enema) peg 3350-electrolytes 236 240 ml PO Q10M #4,000 mL 07/12/24 07/21/24 Rx gram-22.74 gram-6.74 gram-5.86 gram solution (Golytely) insulin glargine 100 unit/mL (3 15 - 30 unit subcut BID 07/22/24 07/22/24 History mL) subcutaneous pen (Basaglar KwikPen U-100 Insulin) Patient History Medical History shelter resident [facility] 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 History of sepsis Balanitis History of tachycardia Right club foot Cerebral palsy Hypertension Type 2 diabetes mellitus History of small bowel obstruction 10/2023 Cognitive communication deficit Acute kidney failure, unspecified Muscle weakness (generalized) Enterocolitis due to Clostridium difficile, recurrent onset 10/2021 Hyperlipidemia Benign prostatic hyperplasia with lower urinary tract symptoms Hx: UTI (urinary tract infection) complicated uti noted on faxed info. PVD (peripheral vascular disease) did not observe on faxed info. History of COVID-19 07/2022 Anemia hx macrocytic anemia Unspecified intellectual disabilities shelter resident [facility] Suprapubic catheter Heart disease Per residential records Patient's sister (HIPAA contact) denies Surgical History History of carpal tunnel surgery of right wrist (11/2023) Presence of urogenital implants S/P cystoscopy cystolithopaxy w/ replacement suprapubic cath History of colonoscopy History of esophagogastroduodenoscopy (EGD) Presence of cardiac and vascular implant and graft Noted in residential records with the associated date 2015, [facility]- no evidence of cardiac or vascular implant/graft noted at that time- no further details per available residential records Patient's sister (Maribeth, HIPAA contact) denies Family History Mother Peripheral vascular disease Other Cancer Diabetes Heart disease Hypertension Denies family history of Ovarian cancer Prostate cancer Myocardial infarction Breast cancer Colorectal cancer Social History Smoking Status: Former smoker Tobacco Type: Cigarettes Preferred Language: Ukrainian Communication Ability: Impaired Visual Impairment: No Limitations Hearing Ability: Hard of Hearing Compress Trucker Required: No Beliefs That Will Affect Care: None marital status: Single Current Living Situation: [facility] Current Living Situation Comment: [facility] current occupational status: disabled Feels Safe at Home: Yes Diet: regular caffeine: Yes during the past year weight has: remained stable Dental Care, Regularly: No Physical Activity Frequency: Does not Exercise Seatbelt Use: never Assistive Devices: Denture - Upper, Denture - Lower and Hearing Aid - Bilateral Review of Systems Review of Systems: All systems reviewed & are unremarkable except as noted in HPI & below Physical Exam Constitutional: WD/WN, vitals as above Eyes: no conjunctival abnormality ENMT: Ears: no hearing impairment Mouth: no oropharynx abnormality Neck: trachea midline Respiratory: normal respiratory effort; no respiratory distress and no labored breathing Cardiovascular: Rate/Rhythm: regular rate and regular rhythm Gastrointestinal (Abdomen): At the time of my initial exam the patient's abdomen was markedly distended and firm as well as tympanic to percussion. Palpation did not cause much in the way of pain and he had no rebound tenderness or guarding. With the nurse instrument mechanics supervisor present I performed a digital rectal exam. 1 performed a rectal exam a large amount of gas was expelled from the patient's anus and following this exam the patient's abdomen was slightly less distended and firm. Musculoskeletal: No calf tenderness Skin: no rashes Results & Data Vital Signs (Past 12 Hours) Vital Signs Temp Pulse Resp BP Pulse Ox O2 Del Method 07/30/24 20:00 95 H 26 H 115/74 92 Room Air 07/30/24 19:30 98 H 26 H 07/30/24 19:23 97 H 07/30/24 19:19 95 Room Air 07/30/24 19:09 90 25 H 158/110 H 95 07/30/24 19:05 36.5 C 92 H 26 H 158/110 H 95 Room Air PG Care Time/CCT Total # of Minutes Spent Total Time Spent with Patient: Total time spent is greater than 50% in coordination of care (as documented) at patient's floor/unit and/or counseling patient: Coding Level of Care Code 14117 INT INP/OBS CARE 3/75MIN Diagnoses Colon distention K63.89 Small bowel obstruction K56.609
--- NOTE | 2024-07-30 22:43 | XRay Report ---
Exam(s): XR KUB EXAM: XR Abdomen, 1 View CLINICAL HISTORY: NG tube placement. TECHNIQUE: Frontal supine view of the abdomen/pelvis. COMPARISON: No relevant prior studies available. FINDINGS: Gastrointestinal tract: Prominent bowel gas in the superior abdomen. Detailed evaluation limited. Bones/joints: Unremarkable. No acute fracture. Tubes, lines and devices: The nasogastric tube is identified terminating the left upper quadrant, presumably in the proximal to mid body of the stomach. Other findings: The mediastinal contours are unremarkable, accounting for lordotic technique. No tracheal deviation. IMPRESSION: The nasogastric tube is identified terminating the left upper quadrant, presumably in the proximal to mid body of the stomach. Electronically signed by: Jaquan Jara MD 07/30/24 22:42 PM
[2024-07-30] MEDS: PLASMA-LYTE A 1,000 ML IV SCH (23:28)
[2024-07-30] MEDS: INSULIN ASPART PER UNIT CHARGE SC STA (23:28)
[2024-07-30] MEDS: CEFEPIME 2000MG 2,000 MG/20 ML SYR IV STA (23:28)
[2024-07-31] MEDS ORDERED: MELATONIN 3 MG TAB PO PRN (02:00)
[2024-07-31] MEDS ORDERED: DEXTROSE 50% 50 ML SYRINGE IV PRN (02:00)
[2024-07-31] MEDS ORDERED: CARBOHYDRATES FOR HYPOGLYCEMIA PO PRN (02:00)
[2024-07-31] MEDS ORDERED: GLUCOSE 10 TAB/TUBE PO PRN (02:00)
[2024-07-31] MEDS ORDERED: ONDANSETRON INJ 2 MG/ML 2 ML VIAL IV PRN (02:00)
[2024-07-31] MEDS ORDERED: GLUCAGON FOR INJ 1 MG VIAL SQ PRN (02:00)
[2024-07-31] MEDS ORDERED: GLUCOSE 40% GEL 15 GM TUBE PO PRN (02:00)
[2024-07-31] MEDS ORDERED: ACETAMINOPHEN 325 MG TAB PO PRN (02:00)
[2024-07-31] MEDS ORDERED: bisacodyL 10 MG SUPP PR PRN (02:00)
[2024-07-31] MEDS ORDERED: ONDANSETRON 4 MG OD TAB PO PRN (02:02)
[2024-07-31] MEDS ORDERED: PROMETHAZINE HCL INJ 25 MG/ML 1 ML VIAL IM PRN (02:03)
[2024-07-31] MEDS: INSULIN ASPART PER UNIT CHARGE SC SCH (06:07)
[2024-07-31] MEDS: MAGNESIUM CHLORIDE W/CALCIUM 64MG DELAYED REL TAB PO SCH (09:14)
[2024-07-31] MEDS: PROPRANOLOL HCL 60 MG LA CAP PO SCH (09:15)
--- NOTE | 2024-07-31 10:15 | Surgery Progress Note ---
Date of Service July 31, 2024 Assessment & Plan (1) Small bowel obstruction: Plan: His CT images and results were personally viewed and interpreted by myself He has dilation of his stomach and small bowel, but his main dilation is colonic This is been a chronic problem for him No plans for any surgical intervention Will consult gastroenterology to have them on board for consideration of a decompressive colonoscopy if needed Keep NG tube in place today and n.p.o. Will follow (2) Colon distention: Admission and Anticipated Discharge Date Admission Date: July 30, 2024 Subjective Patient seen and examined. Denies abdominal pain. States he is passing flatus but no BM. Afebrile. NG tube in place. Review of Systems Constitutional: no fever and no chills Respiratory: no cough and no dyspnea Cardiovascular: no chest pain and no dyspnea on exertion Gastrointestinal: + constipation; no abdominal pain, no na usea and no vomiting Genitourinary: no dysuria or no problem reported Integumentary: no acne, no boil and no sores Hematologic / Lymphatic: no easy bleeding and no easy bruising Physical Exam Constitutional: WD/WN, vitals as above ENMT: NG tube in place draining some scant bilious fluid Respiratory: normal respiratory effort, lungs clear to auscultation Cardiovascular: RRR, no murmur, no edema Gastrointestinal (Abdomen): Inspection/Auscultation: + abdomen distended; + abdomen abnormal to inspection Percussion/Palpation: abdomen soft; abdomen nontender and no guarding Skin: no rashes, warm and dry Psychiatric: A+Ox3, euthymic affect Results & Data Vital Signs (Past 12 Hours) Vital Signs Temp Pulse Pulse Resp BP BP BP 07/31/24 07:55 36.2 C L 88 16 137/75 07/31/24 01:45 07/31/24 01:45 36.3 C L 95 H 18 120/76 07/31/24 01:00 95 H 20 98/73 L 07/31/24 00:30 96 H 20 109/76 07/30/24 23:30 98 H 21 119/85 07/30/24 23:27 95 H 07/30/24 23:01 96 H 20 115/82 07/30/24 22:30 96 H 21 126/82 Pulse Ox O2 Del Method 07/31/24 07:55 92 Room Air 07/31/24 01:45 Room Air 07/31/24 01:45 94 Room Air 07/31/24 01:00 99 Room Air 07/31/24 00:30 96 Room Air 07/30/24 23:30 97 Room Air 07/30/24 23:27 07/30/24 23:01 96 07/30/24 22:30 95 PG Care Time/CCT Total # of Minutes Spent Total Time Spent with Patient: Total time spent is greater than 50% in coordination of care (as documented) at patient's floor/unit and/or counseling patient: Coding Level of Care Code 16815 SUB INP/OBS CARE 07/03MIN Diagnoses Small bowel obstruction K56.609 Colon distention K63.89
[2024-07-31] MEDS: CEFEPIME 2000MG 2,000 MG/20 ML SYR IV SCH (10:20)
[2024-07-31] MEDS: ATORVASTATIN 20 MG TAB PO SCH (20:59)
--- NOTE | 2024-07-31 23:37 | Hospitalist Progress Note ---
Date of Service July 31, 2024 Assessment & Plan (1) Small bowel obstruction: (2) Hyperglycemia: (3) Acute UTI: Plan 68-year-old male PMHx paralytic ileus, intellectual disability, CP, T2DM on insulin, paraplegia, and chronic UTI w/ suprapubic catheter who presents to the ED for nausea and vomiting with associated abdominal pain. States that he was prepping for colonoscopy the day prior to arrival into the day of arrival and noticed that he was having vomiting with belly pain and distention. ED evaluation reveals leukocytosis 15.24, stable H&H, chloride 93, anion gap 20, BUN/creatinine ratio 24, initial glucose 307, bilirubin 2.3, alk phos 121, UA with bacteria, LE, WBC and RBC as well as yeast and sediment. CTAP abnormally markedly dilated stomach no mucosal thickening, terminal ileum asymmetry completely depressed, distal SBO; pending KUB s/p NG tube placement. Provided with NSS and Zofran in ED. #Abdominal pain/ SBO Patient was prepping for colonoscopy, sudden onset of severe abdominal pain with N/V x 7 times and diarrhea. History significant for paralytic ileus and prior perforation. - CBC WBC 15.24; CMP Cl 93, AG 20, ratio 24; Glucose 307; Bili 2.3, alk phos 121; UA w/ signs of infection + yeast (catheter a baseline); AG suspected to be elevated 2/2 GI losses/dehydration - CTAP dilated stomach, terminal ileum base of injury, depressed, distal SBO; pending post-NG tube KUB - NPO- IVF w/ Plasma-Lyte @ 80mL/hr - Zofran as needed IV - Surgery consulted - NG tube placed - Appreciate input and recs Continue NG tube on intermittent suction. electrolytes stable #Hyperglycemia/T2DM History of DMT2, on sliding scale NovoLog and glargine 30 units at night. Initial glucose 307, repeat 305. - Most recent A1C 04/2024 @ 9.1% - SSI with target BSG range 110-160mg/dL, CF 20, carb ratio 10; 350-400 = 8units; 401-450 = 12 units; 451-500 = 16units; 501-550 = 18units; 551-1000 = 20units. - 5U x 1 for hyperglycemia at admission, pending repeat glucose; Glargine 15 BID - BSG ACHS if eating, q6h if npo - Pharm glycemic management consult placed, appreciate assistance- adjust regimen as needed #UTI/Catheter Catheter at baseline 2/2 paraplegia, no problems concerning. H/o Pseudomonas on prior urine cx. - UA cloudy, presence of ketones, LE, RBC, RBC, bacteria, and yeast. CTAP w/o cystitis noted - Pending cx - Start cefepime #HTN- Propranolol continue meds. Hold NG tube suction while taking morning meds. #HLD- Atorvastatin #Chronic constipation, overflow incontinence- Linzess (3x/wk, //), magnesium hydroxide, Senokot - Held at admission Dispo: Admit, med/sx VTE prophylaxis: Lovenox Admission and Anticipated Discharge Date Admission Date: July 30, 2024 Subjective Patient reports no new symptoms. He is tolerating the NG tube. Physical Exam Physical Exam: General: No acute distress Skin: Warm and dry Head: Normocephalic, atraumatic Neck: Supple, no LAD Cardio: RRR, no M/G/R, S1 and S2 normal Resp: No respiratory distress, Lungs CTA in all lobes bilaterally, no wheezes, rales, or rhonchi Abdomen: Soft, symmetric, nontender; Diffuse distention; No masses or hepatosplenomegaly; Bowel sounds normoactive Results & Data Results & Data Vital Signs (Past 12 Hours) Vital Signs Temp Pulse Resp BP Pulse Ox O2 Del Method 07/31/24 20:27 36.3 C L 84 18 134/74 93 Room Air 07/31/24 15:52 36.3 C L 79 18 130/82 97 Room Air 07/31/24 15:11 36.7 C 77 18 119/72 93 Room Air PG Care Time/CCT Total # of Minutes Spent Total Time Spent with Patient: Total time spent is greater than 50% in coordination of care (as documented) at patient's floor/unit and/or counseling patient: Coding Level of Care Code 04746 SUB INP/OBS CARE 3/50MIN Diagnoses Small bowel obstruction K56.609 Hyperglycemia R73.9 Acute UTI N39.0
[2024-08-01] MEDS: LACTATED RINGER'S 1,000 ML IV SCH (04:52)
[2024-08-01 06:24] LABS: Hematocrit (blood only) 38.7 % (42.0-52.0); Hemoglobin 13.5 g/dl (14.0-18.0); Mean Corpuscular Hemoglobin 31.3 pg (25.0-34.0); Mean Corpuscular Hgb Conc 34.9 g/dL (32.0-36.0); Mean Corpuscular Volume 89.6 fL (80.0-100.0); Platelet Count 172 K/uL (130-400); RDW Coefficient of Variation 14.4 % (11.5-14.5); RDW Standard Deviation 46.7 fL (36.4-46.3); Red Blood Count 4.32 M/uL (4.70-6.10); White Blood Count 6.68 K/ul (4.8-10.8)
[2024-08-01 06:59] LABS: BUN Creatinine Ratio 24.4 (10-20); C Reactive Protein 6.11 mg/dl (0-0.5); Calcium 8.8 mg/dl (8.6-10.3); Creatinine Clr Calc Pharmacy 88.7 ml/min
--- NOTE | 2024-08-01 10:08 | Surgery Progress Note ---
Date of Service August 01, 2024 Assessment & Plan (1) Small bowel obstruction: Plan: No plans for any surgical intervention Consult gastroenterology to have them on board for consideration of a decompressive colonoscopy if needed Keep NG tube in place today and n.p.o. KUB in a.m. Will follow (2) Colon distention: Admission and Anticipated Discharge Date Admission Date: July 30, 2024 Subjective Patient seen and examined. Denies abdominal pain. States he is passing a lot of flatus. Denies any nausea or vomiting. Still has significant NG tube output. Review of Systems Constitutional: no fever and no chills Respiratory: no cough and no dyspnea Cardiovascular: no chest pain and no dyspnea on exertion Gastrointestinal: + constipation; no abdominal pain, no na usea and no vomiting Genitourinary: no dysuria or no problem reported Integumentary: no acne, no boil and no sores Hematologic / Lymphatic: no easy bleeding and no easy bruising Physical Exam Constitutional: WD/WN, vitals as above ENMT: NG tube in place draining some bilious fluid Respiratory: normal respiratory effort, lungs clear to auscultation Cardiovascular: RRR, no murmur, no edema Gastrointestinal (Abdomen): Inspection/Auscultation: + abdomen distended; + abdomen abnormal to inspection Percussion/Palpation: abdomen soft; abdomen nontender and no guarding Skin: no rashes, warm and dry Psychiatric: A+Ox3, euthymic affect Results & Data Vital Signs (Past 12 Hours) Vital Signs Temp Pulse Resp BP Pulse Ox O2 Del Method 08/01/24 07:06 36.2 C L 87 18 164/90 H 93 Room Air PG Care Time/CCT Total # of Minutes Spent Total Time Spent with Patient: Total time spent is greater than 50% in coordination of care (as documented) at patient's floor/unit and/or counseling patient: Coding Level of Care Code 31112 SUB INP/OBS CARE 07/03MIN Diagnoses Small bowel obstruction K56.609 Colon distention K63.89
--- NOTE | 2024-08-01 11:08 | Gastrointestinal Consultation ---
Date of Consultation August 01, 2024 Assessment & Plan (1) 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: Pleasant elderly man with a history of chronic intestinal pseudoobstruction admitted with what seems like an acute small bowel obstruction on top of that. He has had these before. Chronic colonic dilatation does not need decompression as the pseudoobstruction will return immediately. He was being prepped for colonoscopy and outpatient attempt can be considered but I would not do unprepped decompression especially in light of the fact that he is passing gas. Typically perforation of the colon occurs under acute circumstances with marked acute dilation, chronic dilation does not typically result in perforation. History of Present Illness Reason for Consultation: consider for colonic decompression Attending Physician: Raj York History of Present Illness 68 year old man undergoing prep for colonoscopy that was to be done this past Friday. He developed severe abdominal pain and vomiting and was admitted with signs and symptoms of a small bowel obstruction. He is currently being decompressed with nasogastric tube and surgery is following. We are being asked to see him in case he needs colonic decompression. 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 he is currently passing gas and he says his stomach feels fine. Allergies Allergy/AdvReac Type Severity Reaction Status Date / Time lisinopril Allergy Unknown Unknown Verified 07/30/24 22:16 sulfamethoxazole AdvReac Unknown Nausea Verified 07/30/24 22:16 [From Bactrim] trimethoprim [From Bactrim] AdvReac Unknown Nausea Verified 07/30/24 22:16 Home Medications Medication Instructions Recorded Confirmed Type blood-glucose meter (OneTouch #1 ea 11/05/18 07/21/24 History Verio Meter) cholecalciferol (vitamin D3) 25 3,000 units PO DAILY 11/05/18 07/30/24 History mcg (1,000 unit) tablet Wheelchair (Manual) #1 ea 04/01/19 07/21/24 Rx diaper,brief,adult,disposable #48 ea 06/30/19 07/21/24 Rx blood sugar diagnostic (OneTouch #100 ea 04/10/20 07/21/24 Rx Ultra Blue Test Strip) linaclotide 72 mcg capsule 72 mcg PO 3XWK constipation 07/15/23 07/30/24 History (Linzess) propranolol 120 mg capsule,24 120 mg PO QAM 07/15/23 07/30/24 History hr,extended release (Inderal LA) sennosides 8.6 mg-docusate sodium 1 tab PO QAM constipation 10/14/23 07/30/24 History 50 mg tablet (Senokot-S) insulin aspart U-100 100 unit/mL 1 sliding scale dose SC ACHS #10 mL 12/22/23 07/30/24 Rx subcutaneous solution (Novolog U-100 Insulin aspart) atorvastatin 20 mg tablet 20 mg PO HS 02/26/24 07/30/24 History bisacodyl 10 mg rectal suppository 10 mg IA DAILY PRN Constipation 02/26/24 07/30/24 History (Dulcolax (bisacodyl)) cyanocobalamin (vitamin B-12) 1,000 mcg IM MONTHLY 02/26/24 07/30/24 History 1,000 mcg/mL injection kit magnesium hydroxide 400 mg/5 mL 30 ml PO DAILY PRN Constipation 02/26/24 07/30/24 History oral suspension (Milk of Magnesia) acetaminophen 325 mg tablet 650 mg PO Q6H PRN Pain/Fever 04/26/24 07/30/24 History (Tylenol) magnesium chloride 64 mg 64 mg PO QAM 04/26/24 07/30/24 History tablet,extended release sodium phosphates 19 gram-7 118 ml IA DAILY PRN Constipation 04/26/24 07/30/24 History gram/118 mL enema (Fleet Enema) peg 3350-electrolytes 236 240 ml PO Q10M #4,000 mL 07/12/24 07/30/24 Rx gram-22.74 gram-6.74 gram-5.86 gram solution (Golytely) insulin glargine 100 unit/mL (3 30 unit subcut HS 07/22/24 07/30/24 History mL) subcutaneous pen (Basaglar KwikPen U-100 Insulin) citric ac 1980.6 mg-glucono 59.4 30 ml irrigation TID 07/30/24 07/30/24 History mg-mag carb 980.4 mg/30 mL irrig.soln (Renacidin) ondansetron HCl 4 mg tablet 4 mg PO Q6H PRN Nausea And Vomiting 07/30/24 07/30/24 History promethazine 25 mg/mL injection 25 mg IM Q6H PRN Nausea And 07/30/24 07/30/24 History syringe Vomiting Patient History Medical History [facility] resident [facility] 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 History of sepsis Balanitis History of tachycardia Right club foot Cerebral palsy Hypertension Type 2 diabetes mellitus History of small bowel obstruction 10/2023 Cognitive communication deficit Acute kidney failure, unspecified Muscle weakness (generalized) Enterocolitis due to Clostridium difficile, recurrent onset 10/2021 Hyperlipidemia Benign prostatic hyperplasia with lower urinary tract symptoms Hx: UTI (urinary tract infection) complicated uti noted on faxed info. PVD (peripheral vascular disease) did not observe on faxed info. History of COVID-19 07/2022 Anemia hx macrocytic anemia Unspecified intellectual disabilities [facility] resident [facility] Suprapubic catheter Heart disease Per [facility]pc records Patient's sister (HIPAA contact) denies Surgical History History of carpal tunnel surgery of right wrist (11/2023) Presence of urogenital implants S/P cystoscopy cystolithopaxy w/ replacement suprapubic cath History of colonoscopy History of esophagogastroduodenoscopy (EGD) Presence of cardiac and vascular implant and graft Noted in fpc records with the associated date 2015, [facility] at [facility]- no evidence of cardiac or vascular implant/graft noted at that time- no further details per available [facility]pc records Patient's sister (Maribeth, HIPAA contact) denies Family History Mother Peripheral vascular disease Other Cancer Diabetes Heart disease Hypertension Denies family history of Ovarian cancer Prostate cancer Myocardial infarction Breast cancer Colorectal cancer Social History Smoking Status: Former smoker Tobacco Type: Cigarettes Hx Alcohol Use: No Hx Substance Use: No Preferred Language: Mozambican Communication Ability: Effective Visual Impairment: No Limitations Hearing Ability: Hard of Hearing Flue Lining Dipper Required: No Beliefs That Will Affect Care: None marital status: Single Current Living Situation: Senior Living Current Living Situation Comment: [facility] current occupational status: disabled Other Information That Helps Us Care for You: No Feels Safe at Home: Yes Safety Concerns: Feels Safe At This Time Diet: regular caffeine: Yes during the past year weight has: remained stable Dental Care, Regularly: No Physical Activity Frequency: Does not Exercise Seatbelt Use: never Assistive Devices: Denture - Upper, Denture - Lower, Hospital Bed and Wheelchair Review of Systems Review of Systems: Unobtainable due to cognitive status Physical Exam Constitutional: WD/WN, vitals as above Respiratory: normal respiratory effort, lungs clear to auscultation Cardiovascular: RRR, no murmur, no edema Gastrointestinal (Abdomen): Inspection/Auscultation: + abdomen distended Percussion/Palpation: abdomen nontender Results & Data Vital Signs (Past 12 Hours) Vital Signs Temp Pulse Resp BP Pulse Ox O2 Del Method 08/01/24 07:06 36.2 C L 87 18 164/90 H 93 Room Air Laboratory Results 08/01/24 08/01/24 07/31/24 Range/Units 05:59 05:49 23:49 WBC 6.68 (4.8-10.8) K/ul RBC 4.32 L (4.70-6.10) M/uL Hgb 13.5 L D (14.0-18.0) g/dl Hct 38.7 L (42.0-52.0) % MCV 89.6 (80.0-100.0) fL MCH 31.3 (25.0-34.0) pg MCHC 34.9 (32.0-36.0) g/dL RDW Std Deviation 46.7 H (36.4-46.3) fL RDW Coeff of Renée 14.4 (11.5-14.5) % Plt Count 172 (130-400) K/uL MPV 9.0 L (9.4-12.4) fL Sodium 147 H D (136-145) mmol/L Potassium 3.0 L D (3.5-5.1) mmol/L Chloride 104 (98-107) mmol/L Carbon Dioxide 34 H (21-32) mmol/L Anion Gap 9 (3-11) BUN 19 (6-23) mg/dl Creatinine 0.78 (0.6-1.4) mg/dl Est Cr Clr Drug Dosing 88.7 ml/min eGFR 95.94 BUN/Creatinine Ratio 24.4 H (10-20) Glucose 169 H (70-99(Fasting)) mg/dl POC Glucose 161 H 215 H (70-99) mg/dl Calcium 8.8 (8.6-10.3) mg/dl C-Reactive Protein 6.11 H (0-0.5) mg/dl 07/31/24 07/31/24 Range/Units 18:00 11:51 WBC (4.8-10.8) K/ul RBC (4.70-6.10) M/uL Hgb (14.0-18.0) g/dl Hct (42.0-52.0) % MCV (80.0-100.0) fL MCH (25.0-34.0) pg MCHC (32.0-36.0) g/dL RDW Std Deviation (36.4-46.3) fL RDW Coeff of Renée (11.5-14.5) % Plt Count (130-400) K/uL MPV (9.4-12.4) fL Sodium (136-145) mmol/L Potassium (3.5-5.1) mmol/L Chloride (98-107) mmol/L Carbon Dioxide (21-32) mmol/L Anion Gap (3-11) BUN (6-23) mg/dl Creatinine (0.6-1.4) mg/dl Est Cr Clr Drug Dosing ml/min eGFR BUN/Creatinine Ratio (10-20) Glucose (70-99(Fasting)) mg/dl POC Glucose 191 H 254 H (70-99) mg/dl Calcium (8.6-10.3) mg/dl C-Reactive Protein (0-0.5) mg/dl Diagnostic Findings Abdomen/Pelvis CT 07/30/24 19:27 Exam(s): CT ABDOMEN + PELVIS With Contrast EXAM: CT Abdomen and Pelvis With Intravenous Contrast CLINICAL HISTORY: abd pain. TECHNIQUE: Axial computed tomography images of the abdomen and pelvis with intravenous contrast. CTDI is 25.52 mGy and DLP is 1354.72 mGy-cm. Automated exposure control was utilized for the study. A dose lowering technique was utilized adhering to the principles of ALARA. COMPARISON: CT abdomen and pelvis dated April 26, 2024 FINDINGS: Lung bases: Unremarkable. No mass. No consolidation. ABDOMEN: Liver: Unremarkable. No mass. Gallbladder and bile ducts: Calcification within the decompressed gallbladder is stable in appearance. No gallbladder wall thickening or biliary dilatation. Pancreas: Unremarkable. No mass. No ductal dilation. Spleen: Unremarkable. No splenomegaly. Adrenals: Unremarkable. No mass. Kidneys and ureters: The kidneys demonstrate normal enhancement. Similar cortical cysts noted bilaterally. No hydronephrosis with similar left pelviectasis. No ureteral stones. Stomach and bowel: Abnormal markedly dilated stomach, which is fluid and gas filled without gastric mucosal thickening. There is also abnormal fluid and gas dilated duodenum and multiple small bowel loops throughout the abdomen and pelvis which distends the abdomen. There is no clear transition point identified. However, the terminal ileum is asymmetrically completely decompressed. The colon is predominantly decompressed. However, the previously noted dilated sigmoid loop is similarly gas distended. PELVIS: Appendix: Status post appendectomy. Bladder: A suprapubic catheter is noted in position. The bladder is decompressed with similar bladder wall prominence. Reproductive: Unremarkable as visualized. ABDOMEN and PELVIS: Intraperitoneal space: Unremarkable. No free air. No significant fluid collection. Bones/joints: No acute fracture. No dislocation. Soft tissues: Unremarkable. Vasculature: Atherosclerotic calcification of the normal caliber aorta. No abdominal aortic aneurysm. Lymph nodes: Unremarkable. No enlarged lymph nodes. IMPRESSION: Abnormal markedly dilated stomach, which is fluid and gas filled without gastric mucosal thickening. There is also abnormal fluid and gas dilated duodenum and multiple small bowel loops throughout the abdomen and pelvis which distends the abdomen. There is no clear transition point identified. However, the terminal ileum is asymmetrically completely decompressed. While the appearance may represent chronic gastroenteritis, the appearance is concerning for a subtle distal small bowel obstruction. No pneumatosis or pneumoperitoneum. Electronically signed by: Jaquan Jara MD 07/30/24 21:58 PM KUB X-Ray 07/30/24 21:15 Exam(s): XR KUB EXAM: XR Abdomen, 1 View CLINICAL HISTORY: NG tube placement. TECHNIQUE: Frontal supine view of the abdomen/pelvis. COMPARISON: No relevant prior studies available. FINDINGS: Gastrointestinal tract: Prominent bowel gas in the superior abdomen. Detailed evaluation limited. Bones/joints: Unremarkable. No acute fracture. Tubes, lines and devices: The nasogastric tube is identified terminating the left upper quadrant, presumably in the proximal to mid body of the stomach. Other findings: The mediastinal contours are unremarkable, accounting for lordotic technique. No tracheal deviation. IMPRESSION: The nasogastric tube is identified terminating the left upper quadrant, presumably in the proximal to mid body of the stomach. Electronically signed by: Jaquan Jara MD 07/30/24 22:42 PM
[2024-08-01] MEDS: POTASSIUM CHLORIDE / WTR 10 MEQ/100 ML PLCT IV SCH (11:59)
--- NOTE | 2024-08-01 22:40 | Hospitalist Progress Note ---
Date of Service August 01, 2024 Assessment & Plan (1) Small bowel obstruction: (2) Hyperglycemia: (3) Acute UTI: Plan 68-year-old male PMHx paralytic ileus, intellectual disability, CP, T2DM on insulin, paraplegia, and chronic UTI w/ suprapubic catheter who presents to the ED for nausea and vomiting with associated abdominal pain. States that he was prepping for colonoscopy the day prior to arrival into the day of arrival and noticed that he was having vomiting with belly pain and distention. ED evaluation reveals leukocytosis 15.24, stable H&H, chloride 93, anion gap 20, BUN/creatinine ratio 24, initial glucose 307, bilirubin 2.3, alk phos 121, UA with bacteria, LE, WBC and RBC as well as yeast and sediment. CTAP abnormally markedly dilated stomach no mucosal thickening, terminal ileum asymmetry completely depressed, distal SBO; pending KUB s/p NG tube placement. Provided with NSS and Zofran in ED. #Abdominal pain/ SBO Patient was prepping for colonoscopy, sudden onset of severe abdominal pain with N/V x 7 times and diarrhea. History significant for paralytic ileus and prior perforation. - CBC WBC 15.24; CMP Cl 93, AG 20, ratio 24; Glucose 307; Bili 2.3, alk phos 121; UA w/ signs of infection + yeast (catheter a baseline); AG suspected to be elevated 2/2 GI losses/dehydration - CTAP dilated stomach, terminal ileum base of injury, depressed, distal SBO; pending post-NG tube KUB - NPO- IVF w/ Plasma-Lyte @ 80mL/hr - Zofran as needed IV - Surgery consulted - NG tube placed - Appreciate input and recs Continue NG tube on intermittent suction. hypokalemia required potassium replacement on 08/01 Family interested in colonoscopy as patient has not tolerated outpatient colonscopy prep, will need to further discuss with weekday GI. #Hyperglycemia/T2DM History of DMT2, on sliding scale NovoLog and glargine 30 units at night. Initial glucose 307, repeat 305. - Most recent A1C 04/2024 @ 9.1% - SSI with target BSG range 110-160mg/dL, CF 20, carb ratio 10; 350-400 = 8units; 401-450 = 12 units; 451-500 = 16units; 501-550 = 18units; 551-1000 = 20units. - 5U x 1 for hyperglycemia at admission, pending repeat glucose; Glargine 15 BID - BSG ACHS if eating, q6h if npo - Pharm glycemic management consult placed, appreciate assistance- adjust reg imen as needed #UTI/Catheter Catheter at baseline 2/2 paraplegia, no problems concerning. H/o Pseudomonas on prior urine cx. - UA cloudy, presence of ketones, LE, RBC, RBC, bacteria, and yeast. CTAP w/o cystitis noted - Pending cx - Start cefepime will need cath replaced on 08/02 #HTN- Propranolol continue meds. Hold NG tube suction while taking morning meds. #HLD- Atorvastatin #Chronic constipation, overflow incontinence- Linzess (3x/wk, //), magnesium hydroxide, Senokot - Held at admission Dispo: Admit, med/sx VTE prophylaxis: Lovenox Admission and Anticipated Discharge Date Admission Date: July 30, 2024 Subjective Patient reports no new symptoms. He is tolerating the NG tube. Physical Exam Physical Exam: General: No acute distress Skin: Warm and dry Head: Normocephalic, atraumatic Neck: Supple, no LAD Cardio: RRR, no M/G/R, S1 and S2 normal Resp: No respiratory distress, Lungs CTA in all lobes bilaterally, no wheezes, rales, or rhonchi Abdomen: Soft, symmetric, nontender; Diffuse distention; No masses or hepatosplenomegaly; Bowel sounds normoactive Results & Data Results & Data Vital Signs (Past 12 Hours) Vital Signs Temp Pulse Resp BP Pulse Ox O2 Del Method 08/01/24 20:36 36.3 C L 70 16 165/91 H 93 Room Air 08/01/24 16:04 36.6 C 77 18 164/91 H 92 Room Air PG Care Time/CCT Total # of Minutes Spent Total Time Spent with Patient: Total time spent is greater than 50% in coordination of care (as documented) at patient's floor/unit and/or counseling patient: Coding Level of Care Code 00321 SUB INP/OBS CARE 3/50MIN Diagnoses Small bowel obstruction K56.609 Hyperglycemia R73.9 Acute UTI N39.0
[2024-08-02 08:11] LABS: Hematocrit (blood only) 40.2 % (42.0-52.0); Hemoglobin 13.8 g/dl (14.0-18.0); Mean Corpuscular Hemoglobin 31.2 pg (25.0-34.0); Mean Corpuscular Hgb Conc 34.3 g/dL (32.0-36.0); Mean Corpuscular Volume 90.7 fL (80.0-100.0); Mean Platelet Volume 9.1 fL (9.4-12.4); Platelet Count 160 K/uL (130-400); RDW Coefficient of Variation 13.9 % (11.5-14.5); RDW Standard Deviation 46.5 fL (36.4-46.3); Red Blood Count 4.43 M/uL (4.70-6.10); White Blood Count 6.25 K/ul (4.8-10.8)
--- NOTE | 2024-08-02 08:17 | XRay Report ---
EXAM: XR KUB/Abdomen 1 view CLINICAL HISTORY: Colonic distension, SBO. TECHNIQUE: X-ray images of the abdomen were obtained in AP supine positions. COMPARISON: comparison with the previous study dated 07/30/2024. FINDINGS: Gas Pattern: NG tube is seen in place Marked dilatation of the large bowel with a C-shaped dilated bowel loop seen in the center of the abdomen which may represent a markedly dilated sigmoid colon however sigmoid volvulus could not be ruled out. No evidence of small bowel obstruction or distention. Soft Tissues: Soft tissues of the abdomen appear normal without evidence of masses or calcifications. IMPRESSION: 1. Marked dilatation of the large bowel with a C-shaped dilated bowel loop seen in the center of the abdomen which may represent a markedly dilated sigmoid colon however sigmoid volvulus could not be ruled out. (not clearly prominent in the previous study). 2. Marked colonic bowel dilatation with fecal loading(stable). Electronically signed by Aaimr Davies 08-02-2024 08:17 AM
--- NOTE | 2024-08-02 09:16 | Hospitalist Progress Note ---
Date of Service August 02, 2024 Assessment & Plan (1) Small bowel obstruction: (2) Hyperglycemia: Plan 68-year-old male PMHx paralytic ileus, intellectual disability, CP, T2DM on insulin, paraplegia, and chronic UTI w/ suprapubic catheter who presents to the ED for nausea and vomiting with associated abdominal pain. States that he was prepping for colonoscopy the day prior to arrival into the day of arrival and noticed that he was having vomiting with belly pain and distention. CTAP abnormally markedly dilated stomach no mucosal thickening, terminal ileum asymmetry completely depressed, patient with history of recurrent intestinal pseudoobstruction #Abdominal pain/ SBO, recurrent intestinal pseudoobstruction GI medicine to see the patient feels he should be evaluated for sigmoid resection -Patient continue IV fluid, hypokalemia augmented for repletion and ice chips and sips will be allowed NG tube is clamped - Zofran as needed IV - Surgery consulted - NG tube placed - Appreciate input and recs Continue NG tube on intermittent suction. No colonoscopy is recommended this time but consideration of sigmoid resection #Chronic constipation, overflow incontinence- Linzess (3x/wk, T//), magnesium hydroxide, Senokot - Held at admission #Hyperglycemia/T2DM History of DMT2, on sliding scale NovoLog and glargine 30 units at night. Initial glucose 307, repeat 305. - Most recent A1C 04/2024 @ 9.1% -Sliding scale while n.p.o. -Once taking p.o. will resume glargine 15 BID - Pharm glycemic management consult placed, appreciate assistance- adjust regimen as needed #UTI/Catheter chronic colonization Catheter at baseline 2/2 paraplegia, no problems concerning. H/o Pseudomonas on prior urine cx. will need cath replaced prior to discharge #HTN- Propranolol continue meds. Hold NG tube suction while taking morning meds. #HLD- Atorvastatin VTE prophylaxis: Lovenox Admission and Anticipated Discharge Date Admission Date: July 30, 2024 Subjective Patient is pleasant in no distress NG tube is clamped GI medicine feels patient may benefit from consideration of sigmoid resection for recurrent pseudo obstruction Physical Exam Physical Exam: pt is without pain did have loose bowel movement abd is soft without focal area of tenderness Results & Data Results & Data Vital Signs (Past 12 Hours) Vital Signs Temp Pulse Resp BP Pulse Ox O2 Del Method 08/02/24 07:31 98.1 F 68 20 168/83 H 96 Room Air Laboratory Results Reviewed CBC Reviewed chemistry mild hyponatremia consider IV fluid for other 24 hours hypokalemia Allow chips and sips PG Care Time/CCT Total # of Minutes Spent Total Time Spent with Patient: Total time spent is greater than 50% in coordination of care (as documented) at patient's floor/unit and/or counseling patient: Coding Level of Care Code 34707 SUB INP/OBS CARE 3/50MIN Diagnoses Small bowel obstruction K56.609 Hyperglycemia R73.9
[2024-08-02 09:23] LABS: BUN Creatinine Ratio 20.3 (10-20); Calcium 9.1 mg/dl (8.6-10.3); Creatinine Clr Calc Pharmacy 93.5 ml/min; Potassium 3.3 mmol/L (3.5-5.1)
--- NOTE | 2024-08-02 10:04 | Surgery Progress Note ---
Date of Service August 02, 2024 Assessment & Plan (1) Small bowel obstruction: Plan: Had a BM, less distended on exam Will try a clamp trial today and see if we can remove NGT No plans for any surgical intervention [facility] surgery to assume care today (2) Colon distention: Admission and Anticipated Discharge Date Admission Date: July 30, 2024 Subjective Pt seen and examined. Denies abdominal pain. Had a large BM this morning. Afebrile. Review of Systems Constitutional: no fever and no chills Respiratory: no cough and no dyspnea Cardiovascular: no chest pain and no dyspnea on exertion Gastrointestinal: no abdominal pain, no nausea, no vomiting and no constipation Genitourinary: no dysuria or no problem reported Integumentary: no acne, no boil and no sores Hematologic / Lymphatic: no easy bleeding and no easy bruising Physical Exam Constitutional: WD/WN, vitals as above ENMT: NG tube in place draining some blood tinged fluid, non-bilious Respiratory: normal respiratory effort, lungs clear to auscultation Cardiovascular: RRR, no murmur, no edema Gastrointestinal (Abdomen): Inspection/Auscultation: + abdomen distended; + abdomen abnormal to inspection Percussion/Palpation: abdomen soft; abdomen nontender and no guarding Skin: no rashes, warm and dry Psychiatric: A+Ox3, euthymic affect Results & Data Vital Signs (Past 12 Hours) Vital Signs Temp Pulse Resp BP Pulse Ox O2 Del Method 08/02/24 07:31 36.7 C 68 20 168/83 H 96 Room Air PG Care Time/CCT Total # of Minutes Spent Total Time Spent with Patient: Total time spent is greater than 50% in coordination of care (as documented) at patient's floor/unit and/or counseling patient: Coding Level of Care Code 47361 SUB INP/OBS CARE 07/03MIN Diagnoses Small bowel obstruction K56.609 Colon distention K63.89
--- NOTE | 2024-08-02 13:01 | Gastroenterology Progress Note ---
Date of Service August 02, 2024 Assessment & Plan (1) 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: Plan: Patient was able to pass some stool today, currently NG is clamped. no pain currently. Will review case with Dr. Lindsey, further recommendations to follow. Admission and Anticipated Discharge Date Admission Date: July 30, 2024 Supervising Physician Co-Signing Physician Notes Chronic intestinal pseudoobstruction. Markedly dilated colon. Appears to have significant dilation of the sigmoid colon. But does not obviously have a sigmoid volvulus. He is actually abdomen is relatively soft. It is tympanic. There is no guarding rebound or rigidity. Patient has an NG and has been clamped by surgery. I believe his acute gastric and small bowel distention are probably related to the colon prep on the background of his intestinal pseudoobstruction. If tolerates NG clamping NG can be removed. Will do a follow-up KUB to exclude progressively dilating sigmoid to suggest the need for sigmoid decompression. I reviewed with his sister at the bedside I think this gentleman probably should see colorectal surgery. He has had an escalating pattern of episodes of nausea and vomiting and abdominal distention. Patient's weight recurrent sigmoid obstruction or sigmoid volvulus in this situation may need to undergo a sigmoid resection with its inherent risks. I think through colorectal surgery evaluation in that regard as an outpatient would be appropriate Follow-up KUB tomorrow. At this point I do not think he needs enemas. Subjective Patient did pass some liquid stool today. no abdominal pain. he feels less distended. NG in place but clamped. KUB 08/02/24 Marked dilatation of the large bowel with a C-shaped dilated bowel loop seen in the center of the abdomen which may represent a markedly dilated sigmoid colon however sigmoid volvulus could not be ruled out. (not clearly prominent in the previous study). Marked colonic bowel dilatation with fecal loading(stable) Review of Systems Review of Systems: All systems reviewed & are unremarkable except as noted in HPI & below Physical Exam Constitutional: WD/WN, vitals as above Respiratory: normal respiratory effort, lungs clear to auscultation Cardiovascular: Rate/Rhythm: regular rate and regular rhythm Gastrointestinal (Abdomen): decreased bowel sounds, soft, nontender. Psychiatric: Orientation: alert and oriented x 3 Affect: euthymic affect Results & Data Results & Data Vital Signs (Past 12 Hours) Vital Signs Temp Pulse Resp BP Pulse Ox O2 Del Method 02/24/25 11:50 97.7 F 72 20 163/76 H 96 Room Air 08/02/24 08:30 Room Air 08/02/24 07:31 98.1 F 68 20 168/83 H 96 Room Air Coding Level of Care Code 72075 SUB INP/OBS CARE 07/03MIN Diagnoses 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 K56.0
--- NOTE | 2024-08-02 15:00 | Electrocardiogram Report ---
Test Reason : Blood Pressure : */* mmHG Vent. Rate : 90 BPM Atrial Rate : 90 BPM P-R Int : 172 ms QRS Dur : 92 ms QT Int : 372 ms P-R-T Axes : 55 28 39 degrees QTcB Int : 455 ms Normal sinus rhythm Inferior infarct (cited on or before 17-Dec-2023) Abnormal ECG When compared with ECG of 17-Dec-2023 20:10, No significant change was found Confirmed by Moi Andreson ([id number]) on 08/02/2024 3:00:02 PM Referred By: [facility] Confirmed By: Moi Anderson
[2024-08-02] MEDS: LACTATED RINGER'S 1,000 ML IV SCH (17:20)
[2024-08-02] MEDS: POTASSIUM CHLORIDE / WTR 10 MEQ/100 ML PLCT IV SCH (17:20)
--- NOTE | 2024-08-02 21:09 | XRay Report ---
Exam(s): XR KUB EXAM: XR Abdomen, 1 View CLINICAL HISTORY: Reason for exam: bowel obstruction, pt removed NG, check status. TECHNIQUE: Frontal supine view of the abdomen/pelvis. COMPARISON: 08/02/2024 FINDINGS/IMPRESSION: Diffuse gaseous distention of the GI tract appears unchanged. No visualized NG tube. Electronically signed by: Ty Petersen MD 08/02/24 21:08 PM
--- NOTE | 2024-08-03 07:47 | XRay Report ---
EXAM: XR KUB/Abdomen 1 view CLINICAL HISTORY: Assess colon dilation. TECHNIQUE: X-ray images of the abdomen were obtained in AP supine positions COMPARISON: CR dated 08/02/2024. FINDINGS: Gas Pattern: NG tube is seen in place Marked dilatation of the large bowel with a C-shaped dilated bowel loop seen in the center of the abdomen which may represent a markedly dilated sigmoid colon however sigmoid volvulus could not be ruled out. Marked dilatation of small bowel loops is seen. Soft Tissues: Soft tissues of the abdomen appear normal without evidence of masses or calcifications. IMPRESSION: 1. Marked dilatation of the large bowel with a C-shaped dilated bowel loop seen in the center of the abdomen which may represent a markedly dilated sigmoid colon however sigmoid volvulus could not be ruled out. ( stable ). 2. Progressing dilatation of small bowel loops is seen ( new finding). 3. Marked colonic bowel dilatation with fecal loading (stable). Electronically signed by Aamir Davies 08-03-2024 07:46 AM
[2024-08-03 09:13] LABS: Hematocrit (blood only) 40.6 % (42.0-52.0); Hemoglobin 14.2 g/dl (14.0-18.0); Mean Corpuscular Hemoglobin 31.7 pg (25.0-34.0); Mean Corpuscular Volume 90.6 fL (80.0-100.0); Mean Platelet Volume 9.2 fL (9.4-12.4); Platelet Count 167 K/uL (130-400); RDW Coefficient of Variation 13.7 % (11.5-14.5); RDW Standard Deviation 45.3 fL (36.4-46.3); Red Blood Count 4.48 M/uL (4.70-6.10); White Blood Count 5.93 K/ul (4.8-10.8)
[2024-08-03 09:32] LABS: BUN Creatinine Ratio 22.9 (10-20); Calcium 8.7 mg/dl (8.6-10.3); Creatinine Clr Calc Pharmacy 98.8 ml/min; Potassium 3.4 mmol/L (3.5-5.1)
--- NOTE | 2024-08-03 09:38 | Surgery Progress Note ---
Date of Service August 03, 2024 Assessment & Plan (1) 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: (2) Small bowel obstruction: Plan tolerated clamp trial of NGT yesterday NGT removed, started clears this am no abdominal pain KUB with stable findings Plan: clear liquids needs to ambulate/OOB to chair continue medical management as per GI recommendations, may require colorectal eval, no need for acute surgical intervention as benign abdominal examination Discussed with Dr. Barbosa who agrees with above. Admission and Anticipated Discharge Date Admission Date: July 30, 2024 Subjective feeling good no abdominal pain, abdomen feels normal, not more bloated hungry, starting clears this morning passed gas last night, no bowel movement no nausea or vomiting Physical Exam Constitutional: WD/WN, vitals as above cooperative and comfortable; no acute distress and not ill appearing Respiratory: normal respiratory effort; no respiratory distress Gastrointestinal (Abdomen): Inspection/Auscultation: + abdomen distended; + abnormal bowel sounds Percussion/Palpation: abdomen soft and + tympanic to percussion; abdomen nontender, no guarding and abdomen not rigid Skin: no rashes, warm and dry Psychiatric: A+Ox3, euthymic affect Results & Data Vital Signs (Past 12 Hours) Vital Signs Temp Pulse Resp BP Pulse Ox O2 Del Method 08/03/24 07:19 36.5 C 68 18 138/77 93 Room Air 08/02/24 21:59 36.5 C 65 16 133/80 94 Room Air Laboratory Results 08/03/24 08/03/24 08/03/24 Range/Units 08:56 06:03 00:18 WBC 5.93 (4.8-10.8) K/ul RBC 4.48 L (4.70-6.10) M/uL Hgb 14.2 (14.0-18.0) g/dl Hct 40.6 L (42.0-52.0) % MCV 90.6 (80.0-100.0) fL MCH 31.7 (25.0-34.0) pg MCHC 35.0 (32.0-36.0) g/dL RDW Std Deviation 45.3 (36.4-46.3) fL RDW Coeff of Renée 13.7 (11.5-14.5) % Plt Count 167 (130-400) K/uL MPV 9.2 L (9.4-12.4) fL Sodium 142 (136-145) mmol/L Potassium 3.4 L (3.5-5.1) mmol/L Chloride 103 (98-107) mmol/L Carbon Dioxide 31 (21-32) mmol/L Anion Gap 8 (3-11) BUN 16 (6-23) mg/dl Creatinine 0.70 (0.6-1.4) mg/dl Est Cr Clr Drug Dosing 98.8 ml/min eGFR 99.12 BUN/Creatinine Ratio 22.9 H (10-20) Glucose 153 H (70-99(Fasting)) mg/dl POC Glucose 139 H 134 H (70-99) mg/dl Calcium 8.7 (8.6-10.3) mg/dl 08/02/24 08/02/24 Range/Units 18:10 11:47 WBC (4.8-10.8) K/ul RBC (4.70-6.10) M/uL Hgb (14.0-18.0) g/dl Hct (42.0-52.0) % MCV (80.0-100.0) fL MCH (25.0-34.0) pg MCHC (32.0-36.0) g/dL RDW Std Deviation (36.4-46.3) fL RDW Coeff of Renée (11.5-14.5) % Plt Count (130-400) K/uL MPV (9.4-12.4) fL Sodium (136-145) mmol/L Potassium (3.5-5.1) mmol/L Chloride (98-107) mmol/L Carbon Dioxide (21-32) mmol/L Anion Gap (3-11) BUN (6-23) mg/dl Creatinine (0.6-1.4) mg/dl Est Cr Clr Drug Dosing ml/min eGFR BUN/Creatinine Ratio (10-20) Glucose (70-99(Fasting)) mg/dl POC Glucose 144 H 167 H (70-99) mg/dl Calcium (8.6-10.3) mg/dl Diagnostic Findings EXAM: XR KUB/Abdomen 1 view CLINICAL HISTORY: Assess colon dilation. TECHNIQUE: X-ray images of the abdomen were obtained in AP supine positions COMPARISON: CR dated 08/02/2024. FINDINGS: Gas Pattern: NG tube is seen in place Marked dilatation of the large bowel with a C-shaped dilated bowel loop seen in the center of the abdomen which may represent a markedly dilated sigmoid colon however sigmoid volvulus could not be ruled out. Marked dilatation of small bowel loops is seen. Soft Tissues: Soft tissues of the abdomen appear normal without evidence of masses or calcifications. IMPRESSION: 1. Marked dilatation of the large bowel with a C-shaped dilated bowel loop seen in the center of the abdomen which may represent a markedly dilated sigmoid colon however sigmoid volvulus could not be ruled out. ( stable ). 2. Progressing dilatation of small bowel loops is seen ( new finding). 3. Marked colonic bowel dilatation with fecal loading (stable). I personally reviewed images and concur with above findings.
[2024-08-03] MEDS ORDERED: Nursing to Pharmacy Communication SCH (10:30)
--- NOTE | 2024-08-03 11:04 | Gastroenterology Progress Note ---
Date of Service August 03, 2024 Assessment & Plan (1) 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: Plan Patient feeling well currently. Xray shown stable findings with the exception of some small bowel dilation. - Our office will work on getting patient set up for outpatient evaluation with colorectal surgery given chronic issues. - continue with supportive care. Admission and Anticipated Discharge Date Admission Date: July 30, 2024 Supervising Physician Co-Signing Physician Notes Some increased small bowel distention. Is not clear if this was related to removal of his NG and he is reverting back to his normal chronic pseudoobstruction distention or whether there is evidence of continued obstruction. Will recheck x-ray tomorrow. He is certainly not uncomfortable. He has abdominal distention with tympany though it is not hard or firm or uncomfortable to the patient. He tells me he is passing gas. I believe the findings are chronic. I think his acute presentation was related to his GoLytely preparation. Recheck x-ray tomorrow if there is progressive distention we could consider intervention for the sigmoid or questionable sigmoid volvulus though this will not likely impact his chronic pseudoobstruction. Subjective Patient was able to tolerate clears today. passing gas. no bowel movements since yesterday per patient. he does not feel worsening bloating. Xray 08/03 Marked dilatation of the large bowel with a C-shaped dilated bowel loop seen in the center of the abdomen which may represent a markedly dilated sigmoid colon however sigmoid volvulus could not be ruled out. ( stable ). Progressing dilatation of small bowel loops is seen ( new finding). Marked colonic bowel dilatation with fecal loading (stable). Review of Systems Review of Systems: All systems reviewed & are unremarkable except as noted in HPI & below Physical Exam Constitutional: WD/WN, vitals as above Respiratory: normal respiratory effort, lungs clear to auscultation Cardiovascular: Rate/Rhythm: regular rate and regular rhythm Gastrointestinal (Abdomen): abdomen tympanic, soft, nontender. bowel sounds present. Psychiatric: Orientation: alert and oriented x 3 Affect: euthymic affect Results & Data Results & Data Vital Signs (Past 12 Hours) Vital Signs Temp Pulse Resp BP Pulse Ox O2 Del Method 08/03/24 07:19 97.7 F 68 18 138/77 93 Room Air Coding Level of Care Code 15386 SUB INP/OBS CARE 1/25MIN Diagnoses 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 K56.0
[2024-08-03] MEDS: INSULIN ASPART PER UNIT CHARGE SC SCH (12:14)
--- NOTE | 2024-08-03 17:59 | Hospitalist Progress Note ---
Date of Service August 03, 2024 Assessment & Plan (1) Small bowel obstruction: (2) Hyperglycemia: Plan 68-year-old male PMHx paralytic ileus, intellectual disability, CP, T2DM on insulin, paraplegia, and chronic UTI w/ suprapubic catheter who presents to the ED for nausea and vomiting with associated abdominal pain. States that he was prepping for colonoscopy the day prior to arrival into the day of arrival and noticed that he was having vomiting with belly pain and distention. CTAP abnormally markedly dilated stomach no mucosal thickening, terminal ileum asymmetry completely depressed, patient with history of recurrent intestinal pseudoobstruction #Abdominal pain/ SBO, recurrent intestinal pseudoobstruction GI medicine to see the patient feels he should be evaluated for sigmoid resection -Patient continue IV fluid, hypokalemia augmented for repletion and ice chips and sips will be allowed NG tube is clamped - Zofran as needed IV - Surgery consulted - NG tube placed - Appreciate input and recs Continue NG tube on intermittent suction. No colonoscopy is recommended this time but consideration of sigmoid resection #Chronic constipation, overflow incontinence- Linzess (3x/wk, T//), magnesium hydroxide, Senokot - Held at admission #Hyperglycemia/T2DM History of DMT2, on sliding scale NovoLog and glargine 30 units at night. Initial glucose 307, repeat 305. - Most recent A1C 04/2024 @ 9.1% -Sliding scale while n.p.o. -Once taking p.o. will resume glargine 15 BID - Pharm glycemic management consult placed, appreciate assistance- adjust regimen as needed #UTI/Catheter chronic colonization Catheter at baseline 2/2 paraplegia, no problems concerning. H/o Pseudomonas on prior urine cx. will need cath replaced prior to discharge #HTN- Propranolol continue meds. Hold NG tube suction while taking morning meds. #HLD- Atorvastatin VTE prophylaxis: Lovenox Admission and Anticipated Discharge Date Admission Date: July 30, 2024 Subjective pt pulled out his ngt and is doing fine tolerating po intake discussion of colonic resection, pt is not wanting to make decision advancing diet Physical Exam Physical Exam: pt is without pain did have loose bowel movement abd is soft without focal area of tenderness Results & Data Results & Data Vital Signs (Past 12 Hours) Vital Signs Temp Pulse Resp BP Pulse Ox O2 Del Method 08/03/24 14:28 97.9 F 70 18 164/78 H 95 Room Air 08/03/24 07:19 97.7 F 68 18 138/77 93 Room Air Laboratory Results review cbc review chemistry PG Care Time/CCT Total # of Minutes Spent Total Time Spent with Patient: Total time spent is greater than 50% in coordination of care (as documented) at patient's floor/unit and/or counseling patient: Coding Level of Care Code 08502 SUB INP/OBS CARE 2/35MIN Diagnoses Small bowel obstruction K56.609 Hyperglycemia R73.9
[2024-08-03] MEDS: POTASSIUM CHLORIDE / WTR 10 MEQ/100 ML PLCT IV SCH (18:22)
[2024-08-03] MEDS: MAGNESIUM SULFATE / D5W 1 GM/100 ML BAG IV ONE (18:23)
[2024-08-04] MEDS ORDERED: Nursing to Pharmacy Communication SCH ×2 (01:00→11:15)
[2024-08-04] MEDS: INSULIN ASPART PER UNIT CHARGE SC SCH ×2 (06:19→12:37)
--- NOTE | 2024-08-04 09:39 | XRay Report ---
KUB HISTORY: assess dilation COMPARISON STUDY: 08/03/2024 FINDINGS: There is diffuse distention of small bowel and colon. Small bowel loops measure up to 5 cm diameter. Colon measures up to 15 cm diameter at the sigmoid, stable. IMPRESSION: Stable bowel distention most severe at the sigmoid colon. ACT 112: Negative or not required by law. The above report was generated using voice recognition software. It may contain grammatical, syntax o r spelling errors. Electronically signed by: Kvng Bhatt M.D. 08/04/2024 9:38 AM
--- NOTE | 2024-08-04 11:08 | Gastroenterology Progress Note ---
Date of Service August 04, 2024 Assessment & Plan (1) 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: Plan: Patient is feeling well currently. He is passing gas and having bowel movements. Xray shown stable findings this morning. - Our office will work on getting patient set up for outpatient evaluation with colorectal surgery given chronic issues. - continue with supportive care. - Given stable findings, can hold off on any endoscopic procedures at this time. Admission and Anticipated Discharge Date Admission Date: July 30, 2024 Supervising Physician Co-Signing Physician Notes Clinically his abdomen is much improved. The distention from yesterday is lessened. He had liquid bowel movement yesterday and states he has been passing a lot of gas. At this point no plan for endoscopic intervention. I would continue MiraLAX daily. Potentially would benefit from a colorectal surgical opinion, if recurrent partial or complete sigmoid volvulus ....the treatment is sigmoid resection. Least being established with colorectal surgery in case this is a emergent sigmoid resection he is established. Subjective Patient is feeling well today. He tells me he moved his bowels last evening and has continued to pass gas. he feels less distended today. no abdominal pain. KUB 08/04 Stable bowel distention most severe at the sigmoid colon. Review of Systems Review of Systems: All systems reviewed & are unremarkable except as noted in HPI & below Physical Exam Constitutional: WD/WN, vitals as above Respiratory: normal respiratory effort, lungs clear to auscultation Cardiovascular: Rate/Rhythm: regular rate and regular rhythm Gastrointestinal (Abdomen): abdominal distention, tympanic, bowel sounds present, nontender. Psychiatric: Orientation: alert and oriented x 3 Affect: euthymic affect Results & Data Results & Data Vital Signs (Past 12 Hours) Vital Signs Temp Pulse Resp BP Pulse Ox O2 Del Method 08/04/24 08:00 97.3 F L 64 16 156/79 H 94 Room Air Coding Level of Care Code 06553 SUB INP/OBS CARE 07/03MIN Diagnoses 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 K56.0
--- NOTE | 2024-08-04 19:47 | Hospitalist Progress Note ---
Date of Service August 04, 2024 Assessment & Plan (1) Small bowel obstruction: (2) Hyperglycemia: Plan 68-year-old male PMHx paralytic ileus, intellectual disability, CP, T2DM on insulin, paraplegia, and chronic UTI w/ suprapubic catheter who presents to the ED for nausea and vomiting with associated abdominal pain. States that he was prepping for colonoscopy the day prior to arrival into the day of arrival and noticed that he was having vomiting with belly pain and distention. CTAP abnormally markedly dilated stomach no mucosal thickening, terminal ileum asymmetry completely depressed, patient with history of recurrent intestinal pseudoobstruction #Abdominal pain/ SBO, recurrent intestinal pseudoobstruction GI medicine to see the patient feels he should be evaluated for sigmoid resection -Patient continue IV fluid, hypokalemia augmented for repletion and ice chips and sips will be allowed NG tube is clamped - Zofran as needed IV - GI medicine feels perhaps referral to colorectal specialist, however pt is unsure of decision No colonoscopy is recommended this time but consideration of sigmoid resection #Chronic constipation, overflow incontinence- Linzess (3x/wk, T//), magnesium hydroxide, Senokot - resume bowel regimen at discharge #Hyperglycemia/T2DM History of DMT2, on sliding scale NovoLog and glargine 30 units at night. Initial glucose 307, repeat 305. - Most recent A1C 04/2024 @ 9.1% -Sliding scale while n.p.o. -Once taking p.o. will resume glargine 15 BID - Pharm glycemic management consult placed, appreciate assistance- adjust regimen as needed #UTI/Catheter chronic colonization Catheter at baseline 2/2 paraplegia, no problems concerning. H/o Pseudomonas on prior urine cx. will need cath replaced prior to discharge #HTN- Propranolol continue meds. Hold NG tube suction while taking morning meds. #HLD- Atorvastatin VTE prophylaxis: Lovenox Admission and Anticipated Discharge Date Admission Date: July 30, 2024 Subjective Patient is feeling well today. He tells me he moved his bowels last evening and has continued to pass gas. he feels less distended today. no abdominal pain. KUB 08/04 Stable bowel distention most severe at the sigmoid colon. Physical Exam Physical Exam: pt has slightly distended abdomen, soft no focal tenderness, no guarding no high pitched tinkling bowel sounds Results & Data Results & Data Vital Signs (Past 12 Hours) Vital Signs Temp Pulse Resp BP BP Pulse Ox O2 Del Method 08/04/24 17:09 97.5 F L 63 18 181/97 H 95 Room Air 08/04/24 15:56 98.1 F 65 16 142/90 H 92 Room Air 08/04/24 12:00 97.3 F L 64 16 153/88 H 94 Room Air 08/04/24 08:00 97.3 F L 64 16 156/79 H 94 Room Air PG Care Time/CCT Total # of Minutes Spent Total Time Spent with Patient: Total time spent is greater than 50% in coordination of care (as documented) at patient's floor/unit and/or counseling patient: Coding Level of Care Code 15141 SUB INP/OBS CARE 2/35MIN Diagnoses Small bowel obstruction K56.609 Hyperglycemia R73.9
[2024-08-04 20:55] VITALS: PULSE 69
[2024-08-05 07:07] VITALS: BP 159/79; RESP 19; TEMP 97.2; O2SAT 92
--- NOTE | 2024-08-05 10:20 | Surgery Progress Note ---
Date of Service August 05, 2024 Assessment & Plan (1) 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: (2) Small bowel obstruction: Plan +bowel function abdomen chronically distended, stable, and soft no abdominal pain Plan: No surgical issues, chronic colonic pseudoobstruction, tolerating diet can consider outpatient colorectal evaluation for any surgical intervention as per GI recommendations continue medical management our services signing off Discussed with Dr. Barbosa who agrees with above. Admission and Anticipated Discharge Date Admission Date: July 30, 2024 Subjective feeling good no abdominal pain passing gas tolerating diet, had eggs, toast and oatmeal for dinner Physical Exam Constitutional: WD/WN, vitals as above + obese, cooperative and comfortable; no acute distress and not ill appearing Respiratory: normal respiratory effort; no respiratory distress Gastrointestinal (Abdomen): Inspection/Auscultation: + abdomen distended Percussion/Palpation: abdomen soft; abdomen nontender, no guarding, abdomen not rigid and abdomen not firm Skin: no rashes, warm and dry Psychiatric: Orientation: alert Results & Data Vital Signs (Past 12 Hours) Vital Signs Temp Pulse Resp BP Pulse Ox O2 Del Method 08/05/24 07:06 36.2 C L 69 19 159/79 H 92 Room Air Laboratory Results 08/05/24 08/04/24 08/04/24 Range/Units 07:44 20:33 11:46 POC Glucose 201 H 279 H 179 H (70-99) mg/dl
--- NOTE | 2024-08-05 11:53 | Discharge Summary ---
Date of Service August 05, 2024 Admission HPI Per Admitting Provider 68-year-old male PMHx paralytic ileus, intellectual disability, diabetes, and paraplegia who presents to the ED for nausea and vomiting. States that he was prepping for colonoscopy the day prior to arrival into the day of arrival and noticed that he was having vomiting with belly pain and distention. Vomit was yellow and brown in nature and occurred around 7 times per patient. 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 Patient with a significant history of perforation in the past. Current abdominal pain is rated at 8 out of 10 on the pain scale with the maximum being 9 out of 10, spreading across entire abdomen. States that he is fatigued but no other complaints at this time. Denying chest pain, shortness of breath, palpitation, numbness/tingling, LUTS, or fever/chills. History is somewhat limited. ED evaluation reveals leukocytosis 15.24, stable H&H, chloride 93, anion gap 20, BUN/creatinine ratio 24, initial glucose 307, bilirubin 2.3, alk phos 121, UA with bacteria, LE, WBC and RBC as well as yeast and sediment. CTAP abnormally markedly dilated stomach no mucosal thickening, terminal ileum asymmetry completely depressed, distal SBO; pending KUB s/p NG tube placement. Provided with NSS and Zofran in ED. Admission Exam (Per Admitting) Constitutional The patient is awake, alert and oriented 3, well developed and well nourished, normocephalic and atraumatic, lying in bed and in no acute distress. HEENT--PERRL, EOMI, mucous membranes and oropharynx mildly dry Neck--supple. No JVD. No bruits. Thyroid normal, trachea midline, no adenopathy. Heart--normal S1 and S2. No murmurs, rubs or gallops. Lungs--clear bilaterally, no respiratory distress, no accessory muscle use. Abdomen--normal bowel sounds and soft. Extremities--no cyanosis or clubbing. No edema. Dermatologic--normal skin turgor, normal color, no abnormal lymph nodes, no rash. Neurologic--cranial nerves II through XII grossly intact. Rheumatologic--reduced range of motion. Psychiatric--normal affect. Discharge Data Consultations 07/30/24 21:15 Consult General Surgery Stat ED Decision to Admit Stat 08/01/24 10:08 Consult Gastroenterology Routine Hospital Course (1) Small bowel obstruction: (2) Hyperglycemia: Plan 68-year-old male PMHx paralytic ileus, intellectual disability, CP, T2DM on insulin, paraplegia, and chronic UTI w/ suprapubic catheter who presents to the ED for nausea and vomiting with associated abdominal pain. States that he was prepping for colonoscopy the day prior to arrival into the day of arrival and noticed that he was having vomiting with belly pain and distention. CTAP abnormally markedly dilated stomach no mucosal thickening, terminal ileum asymmetry completely depressed, patient with history of recurrent intestinal pseudoobstruction #Abdominal pain/ SBO, recurrent intestinal pseudoobstruction GI will arrange outpatient for follow up with a colorectal surgeon No colonoscopy is recommended this time but consideration of sigmoid resection #Chronic constipation, overflow incontinence- Linzess (3x/wk, //), magnesium hydroxide, Senokot - resume bowel regimen at discharge #Hyperglycemia/T2DM History of DMT2, on sliding scale NovoLog and glargine 30 units at night. Initial glucose 307, repeat 305. - Most recent A1C 04/2024 @ 9.1% -Sliding scale while n.p.o. -Once taking p.o. will resume glargine 15 BID - Pharm glycemic management consult placed, appreciate assistance- adjust regimen as needed #UTI/Catheter chronic colonization Catheter at baseline 2/2 paraplegia, no problems concerning. H/o Pseudomonas on prior urine cx. discharge with cath #HTN- Propranolol continue meds. Hold NG tube suction while taking morning meds. #HLD- Atorvastatin VTE prophylaxis: Lovenox Coding Level of Care Code 57708 INP/OBS DISCH >30 MIN Diagnoses Small bowel obstruction K56.609 Hyperglycemia R73.9 Time Spent (min) 35
== END 2024-08-05 15:03 | DRG 389 ==
LOC: ED 19:03 → 3E 22:13 → SUATTDRO 22:13 → 3E 07-31 01:24
DX: Z66 Do not resuscitate; E78.5 Hyperlipidemia, unspecified; Z79.899 Other long term (current) drug therapy; Z01.812 Encounter for preprocedural laboratory examination; E11.65 Type 2 diabetes mellitus with hyperglycemia; K59.09 Other constipation; T83.511A Infection and inflammatory reaction due to indwelling urethral catheter, initial encounter; K56.0 Paralytic ileus; Z86.16 Personal history of COVID-19; I10 Essential (primary) hypertension; F79 Unspecified intellectual disabilities; Z87.891 Personal history of nicotine dependence; K56.609 Unspecified intestinal obstruction, unspecified as to partial versus complete obstruction; Z79.4 Long term (current) use of insulin; Z87.440 Personal history of urinary (tract) infections; Q05.9 Spina bifida, unspecified; Z88.2 Allergy status to sulfonamides; N39.0 Urinary tract infection, site not specified; G82.20 Paraplegia, unspecified; Z88.8 Allergy status to other drugs, medicaments and biological substances; Y84.6 Urinary catheterization as the cause of abnormal reaction of the patient, or of later complication, without mention of misadventure at the time of the procedure; E11.51 Type 2 diabetes mellitus with diabetic peripheral angiopathy without gangrene

== ENCOUNTER 2025-01-01 12:21 | Inpatient (IN) ==
--- NOTE | 2025-01-01 12:59 | Emergency Department Note ---
Impression & Plan Partial small bowel obstruction, Vomiting ED Provider Note NAME: MARIA R KIRKPATRICK AGE: 69 SEX: Male INFORMANT: Patient and EMS ED PROVIDER(S): Dylan Mcgraw MD CHIEF COMPLAINT: Vomiting PLAN: Disposition: Admitted Outpatient prescription management: none Referral: None MEDICAL DECISION MAKING: Patient presented because of vomiting. He had ECG showed anxiety tachycardia. No acute ischemia.. His story this morning at 5 AM EMS provided Zofran and had resolved his vomiting. Patient underwent CT imaging including blood work ordered. Patient was doing well on reassessment. He had no pain. No additional vomiting. CT imaging concerning for partial small bowel obstruction. Consulted with Dr. Perry and general surgery. Recommended conservative management and admission to internal medicine. No NG tube at this time however the patient vomits NG tube will be necessary. Consultation was made with the hospitalist service. Patient was evaluated in the ER and admitted for further management. Care/management discussed with: Case management, general surgery, hospitalist Level of care consideration(s): After review of the information above and other included data, I feel the patient requires escalation of care to admission Triage Nursing notes: reviewed and agree them. Vital Signs: reviewed and remarkable for no significant abnormalities Additional History obtained from: none Chronic Medical/Social Conditions affecting care: Diabetes, hypertension, CP Prior/ Outside/ External records reviewed: none Differential Diagnosis: Etiologies such as obstruction, gastroenteritis, food borne illness, infections, appendicitis, diverticulitis, inflammatory bowel disease, GI bleed, biliary pathology, as well as others were entertained. Diagnostics, independently interpreted by me: ECG: Twelve-lead ECG reveals sinus tachycardia 117 bpm. Rightward axis. Inferior Q waves. No ST elevation. Cardiac Monitoring: Cardiac monitoring ordered by me: The patient was placed on continuous cardiac monitoring and observed. It revealed a normal sinus rhythm at 85 beats per minute without ectopy or evidence of dysrhythmia. Medical decision rules: none Imaging studies: CT scan and pelvis as above. PSBO. I refer you to the EMR for further details. HPI: 69 year old Male arrives for evaluation of vomiting. This started last night and is described as projectile. The patient also notes the following associated symptoms, nausea. The patient has received Phenergan this morning at his nursing facility at 930 and then Zofran by EMS for relieving factors. Current pain is rated as 0/10. Patient has history of suprapubic catheter. And colostomy. Sodium concerned as he has a history of obstruction. Pt denies headache, fevers, chills, diaphoresis, visual changes, neck pain, chest pain, breathing difficulties, abdominal pain, back pain, melena, hematochezia, urinary symptoms, rani other complaints. PAST MEDICAL HISTORY: See Below, small bowel obstruction, ileus, diabetes PAST SURGICAL HISTORY: See Below, SOCIAL HISTORY: See Below, former smoker HOME MEDICATIONS: See Below ALLERGIES: See Below VITALS: See Below PHYSICAL EXAMINATION: GENERAL: Awake, tired-appearing, in no distress HENT: Normocephalic, atraumatic. Oropharynx unremarkable. EYES: Normal conjunctiva. Sclera non-icteric. NECK: Inspection normal. Non-tender. Supple. No nuchal rigidity. FROM. No masses. RESPIRATORY: Clear to auscultation. No wheezes. No rales. Normal respiratory effort. CARDIAC: Tachycardic rate. Normal rhythm. No murmurs. No rubs. Extremities warm and well perfused. Pulses equal. No JVD. GI: Soft, non-distended. No tenderness to palpation. No rebound or guarding. No masses. Suprapubic catheter and colostomy in place. Brown liquidy stool noted in the colostomy. RECTAL: Deferred. MUSCULOSKELETAL: Atraumatic. Chest examination reveals no tenderness. There is no CVA tenderness to palpation. No joint edema. LOWER EXTREMITIES: Calves are equal size bilaterally and non-tender. No edema. No discoloration. NEURO: Awake but tired. Speech is slow. Answer questions appropriately. SKIN: No rash or jaundice noted. 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 Hypomagnesemia (Acute) Intellectual disability (Acute) Acute pyelonephritis (Acute) Colon distention (Acute) Abdominal distension (Acute) History of obstruction of large intestine Carpal tunnel syndrome, right Cervical radicular pain Bladder calculus Obstructed suprapubic catheter Chronic constipation with overflow incontinence Diarrhea Diabetes mellitus, type 2 Neuromuscular dysfunction of bladder Cough Encounter for pre-operative examination Hypokalemia VIKY (acute kidney injury) Acute dehydration (Acute) Infected pressure ulcer (Acute) Acute renal failure (Acute) Leukocytosis (Acute) Generalized weakness (Acute) Acute anemia (Acute) Cellulitis of right leg Constipation Skin tear of elbow without complication (Acute) Abrasion of knee, bilateral (Acute) Diabetic ulcer of right foot (Acute) Diabetic ulcer of left foot (Acute) Foot pain, right Clubfoot of right lower extremity Wound of right foot Gross hematuria Urinary retention Indwelling Hernandez catheter present Traumatic wound Pressure injury of sacral region, stage 2 (Acute) Paraplegia (Chronic) Acute confusion (Acute) Tachycardia (Acute) Discharge planning issues DVT prophylaxis Dehydration (Acute) DNR (do not resuscitate) Metabolic encephalopathy (Acute) UTI (urinary tract infection) due to urinary indwelling catheter (Acute) Acute UTI (urinary tract infection) (Acute) Sepsis (Acute) Spina bifida (Chronic) Cerebral palsy (Chronic) History of macrocytic anemia Hypertension Hyponatremia Tachypnea Elevated serum creatinine Complicated UTI (urinary tract infection) Weakness Cellulitis of left leg (Acute) Spina bifida (Chronic) Macrocytic anemia Catheter-associated urinary tract infection (Acute) Abdominal distension (gaseous) (Chronic) Hyperlipidemia Anemia Diabetes (Chronic) UTI (urinary tract infection) (Acute) Cerebral palsy Sepsis associated hypotension (Acute) Cellulitis of left lower extremity (Acute) Balanitis (Acute) Altered mental status (Acute) Dehydration (Acute) HTN (hypertension) (Chronic) Medical History group home resident [facility] 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 History of sepsis Balanitis History of tachycardia Right club foot Cerebral palsy Hypertension Type 2 diabetes mellitus History of small bowel obstruction 10/2023 Cognitive communication deficit Acute kidney failure, unspecified Muscle weakness (generalized) Enterocolitis due to Clostridium difficile, recurrent onset 10/2021 Hyperlipidemia Benign prostatic hyperplasia with lower urinary tract symptoms Hx: UTI (urinary tract infection) complicated uti noted on faxed info. PVD (peripheral vascular disease) did not observe on faxed info. History of COVID-19 07/2022 Anemia hx macrocytic anemia Unspecified intellectual disabilities [facility] resident [facility] Suprapubic catheter Heart disease Per assisted records Patient's sister (HIPAA contact) denies Surgical History History of carpal tunnel surgery of right wrist (11/2023) Presence of urogenital implants S/P cystoscopy cystolithopaxy w/ replacement suprapubic cath History of colonoscopy History of esophagogastroduodenoscopy (EGD) Presence of cardiac and vascular implant and graft Noted in assisted records with the associated date 2015, patient was with [facility] PCP at that time- no evidence of cardiac or vascular implant/graft noted at that time- no further details per available assisted records Patient's sister (Maribeth, HIPAA contact) denies Family History Mother Peripheral vascular disease Other Cancer Diabetes Heart disease Hypertension Denies family history of Ovarian cancer Prostate cancer Myocardial infarction Breast cancer Colorectal cancer Social History Smoking Status: Former smoker Tobacco Type: Cigarettes Second Hand Exposure: No; Do You Dip or Chew Tobacco: No; Tobacco Cessation Education Requested by Patient: No Hx Alcohol Use: No Hx Substance Use: No Preferred Language: Persian Communication Ability: Effective Visual Impairment: No Limitations Hearing Ability: Hard of Hearing 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 Required: No Beliefs That Will Affect Care: None marital status: Single Current Living Situation: [facility] Current Living Situation Comment: [facility] current occupational status: disabled Other Information That Helps Us Care for You: Yes ([facility]) Feels Safe at Home: Yes Safety Concerns: Feels Safe At This Time Diet: regular caffeine: Yes during the past year weight has: remained stable Dental Care, Regularly: No Physical Activity Frequency: Does not Exercise Seatbelt Use: never Assistive Devices: Wheelchair Assistive Devices Comment: Sydnie Lift Allergies Allergies Allergy/AdvReac Type Severity Reaction Status Date / Time lisinopril Allergy Unknown Unknown Verified 01/01/25 17:15 sulfamethoxazole AdvReac Unknown Nausea Verified 01/01/25 17:15 [From Bactrim] trimethoprim [From Bactrim] AdvReac Unknown Nausea Verified 01/01/25 17:15 Home Meds Home Medications Medication Instructions Recorded Confirmed blood-glucose meter (OneTouch #1 ea 11/05/18 11/24/24 Verio Meter) cholecalciferol (vitamin D3) 25 3,000 units PO QAM 11/05/18 01/01/25 mcg (1,000 unit) tablet atorvastatin 20 mg tablet 20 mg PO HS 02/26/24 01/01/25 acetaminophen 325 mg tablet 650 mg PO Q6H PRN Pain/Fever 04/26/24 01/01/25 (Tylenol) ondansetron HCl 4 mg tablet 4 mg PO Q6H PRN Nausea And Vomiting 07/30/24 01/01/25 polyethylene glycol 3350 17 gram 17 g PO QAM 12/04/24 01/01/25 oral powder packet (Miralax) promethazine 25 mg/mL injection 25 mg IM Q6H PRN Nausea And 12/04/24 01/01/25 solution Vomiting semaglutide 2 mg/dose (8 mg/3 mL) 2 mg subcut WK 12/04/24 01/01/25 subcutaneous pen injector (Ozempic) cyanocobalamin (vitamin B-12) 1,000 mcg IM MONTHLY 01/01/25 01/01/25 1,000 mcg/mL injection solution insulin aspart U-100 100 unit/mL 1 sliding scale dose subcut ACHS 01/01/25 01/01/25 subcutaneous solution insulin glargine-yfgn 100 unit/mL 70 unit subcut HS 01/01/25 01/01/25 (3 mL) subcutaneous pen magnesium chloride 64 mg 64 mg PO QAM 01/01/25 01/01/25 (magnesium chloride) tablet,delayed release (Mag 64) magnesium oxide 400 mg PO BID 01/01/25 01/01/25 propranolol 120 mg capsule,24 120 mg PO QAM 01/01/25 01/01/25 hr,extended release Previous Rx's Medication Instructions Recorded Wheelchair (Manual) #1 ea 04/01/19 diaper,brief,adult,disposable #48 ea 06/30/19 blood sugar diagnostic (OneTouch #100 ea 04/10/20 Ultra Blue Test Strip) Results & Data (ED) Vital Signs Vital Signs - 24 hr 01/01/25 12:21 01/01/25 12:39 01/01/25 12:42 Temperature 36.5 C Temperature Source Oral Pulse Rate 119 H 119 H 120 H Respiratory Rate 16 16 Respiratory Effort / Characteristics Non-Labored Spontaneous Respiratory Depth Normal Respiratory Pattern Regular Blood Pressure 119/91 Blood Pressure Mean 100 Pulse Oximetry 94 94 Oxygen Delivery Method Room Air Room Air Sepsis Recent Fever Within 48 Hours No Sepsis New/Unexplained Change in Mental Status N/A Sepsis Action Taken by Nursing No Action Required Laboratory Data 01/02/25 06:31 01/02/25 06:31 Lab Results 01/01/25 01/01/25 01/01/25 Range/Units 12:58 15:32 16:46 WBC 16.76 H (4.8-10.8) K/ul RBC 5.19 (4.70-6.10) M/uL Hgb 16.3 (14.0-18.0) g/dl Hct 45.9 (42.0-52.0) % MCV 88.4 (80.0-100.0) fL MCH 31.4 (25.0-34.0) pg MCHC 35.5 (32.0-36.0) g/dL RDW Std Deviation 48.2 H (36.4-46.3) fL RDW Coeff of Renée 15.1 H (11.5-14.5) % Plt Count 242 (130-400) K/uL MPV 9.0 L (9.4-12.4) fL Immature Gran % (Auto) 0.5 % Neut % (Auto) 86.4 % Lymph % (Auto) 6.3 % Dent % (Auto) 5.5 % Eos % (Auto) 0.9 % Baso % (Auto) 0.4 % Neut # (Auto) 14.48 H (1.40-6.50) K/uL Lymph # (Auto) 1.06 L (1.20-3.40) K/uL Dent # (Auto) 0.92 H (0.11-0.59) K/uL Eos # (Auto) 0.15 (0.00-0.50) K/uL Baso # (Auto) 0.06 (0.00-0.20) K/uL Immature Gran # (Auto) 0.09 (0.01-0.20) K/uL Sodium 136 (136-145) mmol/L Potassium 3.7 (3.5-5.1) mmol/L Chloride 98 (98-107) mmol/L Carbon Dioxide 29 (21-32) mmol/L Anion Gap 9 (3-11) BUN 14 (6-23) mg/dl Creatinine 1.01 (0.6-1.4) mg/dl Est Cr Clr Drug Dosing 69.0 ml/min eGFR 79.51 BUN/Creatinine Ratio 13.9 (10-20) Glucose 202 H (70-99(Fasting)) mg/dl Calcium 9.7 (8.6-10.3) mg/dl Total Bilirubin 1.4 H (0.2-1.0) mg/dl AST 22 (13-39) U/L ALT 25 (7-52) U/L Alkaline Phosphatase 126 H (34-104) U/L Total Protein 7.5 (6.0-8.3) gm/dl Albumin 4.3 (3.4-5.0) gm/dl Globulin 3.2 (2.5-4.0) gm/dl Albumin/Globulin Ratio 1.3 (0.9-2) Lipase 24 (11-82) U/L Urine Color Yellow Urine Appearance Clear (Clear) Urine pH 7.5 (4.5-7.5) Ur Specific [place] > 1.045 H (1.000-1.030) Urine Protein 1+ H (Negative) Urine Glucose (UA) Negative (Negative) Urine Ketones Negative (Negative) Urine Blood Negative (Negative) Urine Nitrite Negative (Negative) Urine Bilirubin Negative (Negative) Urine Urobilinogen Negative (Negative) Ur Leukocyte Esterase 1+ H (Negative) Urine RBC 0-2 (0-2) /hpf Urine WBC 21-50 H (0-5) /hpf Ur Epithelial Cells 0-2 (0-2) /hpf Calcium Oxalate Crystal Present A (None Prsent) Urine Bacteria None Seen (None Seen) Urine Comment SARS-CoV-2, RNA, NAAT NEGATIVE (NEGATIVE) Administered Medications Enoxaparin Sodium (Enoxaparin Inj 40 Mg/0.4 Ml Syr) 40 mg SQ Q24H SARAH Stop: 01/31/25 19:59 Last Admin: 01/01/25 19:44 Dose: 40 mg Documented By: DARREN Potassium Chloride/Sodium Chloride (1/2 Nss + 20meq Kcl 1000ml) 20 meq in 1,000 mls @ 125 mls/hr IV .Q8H SARAH Stop: 01/05/25 01:29 Last Admin: 01/02/25 17:19 Dose: 125 mls/hr Documented By: Infusion: 01/02/25 17:19 Dose: Infused Documented By: Admin: 01/02/25 09:36 Dose: 125 mls/hr Documented By: Infusion: 01/02/25 09:31 Dose: Infused Documented By: Admin: 01/02/25 01:31 Dose: 125 mls/hr Documented By: DARREN Insulin Aspart (Insulin Aspart Per Unit Charge) 0 units SC Q4 SARAH Stop: 02/01/25 03:59 Last Admin: 01/02/25 17:01 Dose: Not Given Documented By: Admin: 01/02/25 11:56 Dose: Not Given Documented By: Admin: 01/02/25 08:19 Dose: 2 units Documented By: ELIZABETH Co-signed By: ROBYN Admin: 01/02/25 03:53 Dose: 4 units Documented By: DARREN Co-signed By: SISSY Metoprolol Tartrate (Metoprolol Tartrate 1 Mg/Ml Vial) 5 mg IV Q6 SARAH Stop: 01/31/25 18:19 Last Admin: 01/02/25 17:49 Dose: 5 mg Documented By: Admin: 01/02/25 11:55 Dose: 5 mg Documented By: Admin: 01/02/25 06:25 Dose: 5 mg Documented By: Admin: 01/01/25 23:25 Dose: 5 mg Documented By: Admin: 01/01/25 18:40 Dose: 5 mg Documented By: KEYONA Ondansetron HCl (Ondansetron Inj 2 Mg/Ml 2 Ml Vial) 4 mg IV Q6H PRN PRN Reason: Nausea Stop: 01/31/25 18:19 Last Admin: 01/02/25 02:56 Dose: 4 mg Documented By: Admin: 01/01/25 19:45 Dose: 4 mg Documented By: DARREN Discontinued Medications Sodium Chloride (Nss) 500 mls @ 999 mls/hr IV .Q31M ONE Stop: 01/01/25 13:21 Last Infusion: 01/01/25 14:45 Dose: Infused Documented By: Admin: 01/01/25 13:00 Dose: 999 mls/hr Documented By: LUCY Sodium Chloride (Nss) 1,000 mls @ 125 mls/hr IV .Q8H [facility] Stop: 01/04/25 12:59 Last Infusion: 01/01/25 18:33 Dose: Infused Documented By: Admin: 01/01/25 14:45 Dose: 125 mls/hr Documented By: LUCY Potassium Chloride/Dextrose/Sod Cl (D5w And 1/2nss + 20meq Kcl) 20 meq in 1,000 mls @ 125 mls/hr IV .Q8H SARAH Stop: 01/04/25 18:19 Last Infusion: 01/02/25 01:29 Dose: Infused Documented By: Admin: 01/01/25 19:44 Dose: 125 mls/hr Documented By: DARREN Sodium Chloride (Nss) 1,000 mls @ 999 mls/hr IV .Q1H1M ONE Stop: 01/02/25 16:20 Last Infusion: 01/02/25 17:39 Dose: Infused Documented By: Admin: 01/02/25 16:01 Dose: 999 mls/hr Documented By: ELIZABETH Insulin Aspart (Insulin Aspart Per Unit Charge) 0 units SC Q6 SARAH Stop: 01/31/25 18:44 Last Admin: 01/01/25 23:38 Dose: 6 units Documented By: DARREN Co-signed By: AYANNA Admin: 01/01/25 18:46 Dose: 3 units Documented By: KEYONA Co-signed By: DARREN Insulin Glargine (Lantus Per Unit Charge) 12 units SQ BID SARAH Stop: 01/31/25 20:59 Last Admin: 01/01/25 21:07 Dose: 12 units Documented By: DARREN Co-signed By: SISSY Ioversol (Optiray 320 100ml) 94 ml IV ONCE ONE Stop: 01/01/25 14:06 Last Admin: 01/01/25 14:06 Dose: 94 ml Documented By: JOSEPH Discharge Plan Visit Data Chief Complaint: Vomiting Stated Complaint: NAUSEA/VOMITTING ED Provider: Dylan Mcgraw Discharge Problem: Partial small bowel obstruction, Vomiting Patient Disposition: Admitted As Inpatient Condition: Good Discharge Instructions Interventions: ED Discharge Assessment Last Done: 01/01/25 18:05
[2025-01-01] MEDS: SODIUM CHLORIDE 0.9% 500 ML IV ONE (13:00)
[2025-01-01 13:14] LABS: Hematocrit (blood only) 45.9 % (42.0-52.0); Hemoglobin 16.3 g/dl (14.0-18.0); Immature Granulocytes # (auto) 0.09 K/uL (0.01-0.20); Immature Granulocytes % (auto) 0.5 %; Mean Corpuscular Hemoglobin 31.4 pg (25.0-34.0); Mean Corpuscular Volume 88.4 fL (80.0-100.0); Platelet Count 242 K/uL (130-400); RDW Standard Deviation 48.2 fL (36.4-46.3); Red Blood Count 5.19 M/uL (4.70-6.10); White Blood Count 16.76 K/ul (4.8-10.8)
[2025-01-01 13:31] LABS: Alanine Aminotransferase 25.0 U/L (7-52); Albumin Globulin Ratio 1.3 (0.9-2); Alkaline Phosphatase 126.0 U/L (34-104); Anion Gap 9.0 (3-11); Bilirubin,Total 1.4 mg/dl (0.2-1.0); Blood Urea Nitrogen 14.0 mg/dl (6-23); Calcium 9.7 mg/dl (8.6-10.3); Carbon Dioxide 29.0 mmol/L (21-32); Chloride 98.0 mmol/L (98-107); Creatinine Clr Calc Pharmacy 69.0 ml/min; Globulin 3.2 gm/dl (2.5-4.0); Glucose 202.0 mg/dl (70-99(Fasting)); Lipase 24.0 U/L (11-82); Potassium 3.7 mmol/L (3.5-5.1); Sodium 136.0 mmol/L (136-145); Total Protein 7.5 gm/dl (6.0-8.3)
[2025-01-01] MEDS: OPTIRAY 320 100ml IV ONE (14:06)
--- NOTE | 2025-01-01 14:31 | CT Scan Report ---
EXAMINATION: CT of the abdomen and pelvis performed after the administration of IV contrast TECHNIQUE: Helical CT images from the lung bases through the symphysis pubis were obtained with contrast. Coronal and sagittal reformatted images were generated at a workstation for further assessment. Dose reduction techniques were achieved by using automatic exposure control and/or adjustment of mA and/or kV according to patient size and/or use of iterative reconstruction technique. COMPARISON: 12/04/2024 HISTORY: Abdominal pain FINDINGS: Lower chest: No consolidation. No pleural effusion or pneumothorax. Liver: No suspicious liver lesions. Portal veins appear patent. Gallbladder: No gallstones. No evidence of acute cholecystitis. Spleen: Normal size. Pancreas: No suspicious pancreatic lesions. The pancreatic duct is not dilated. Adrenal glands: No adrenal nodules. Kidneys: No hydronephrosis or obstructing renal stones. Few tiny cysts. Bladder / Pelvic organs: Suprapubic urinary bladder catheter. The bladder wall appears thickened, which may be due to cystitis and/or sequelae of chronic outlet obstruction.. Bowel: The appendix is not well-seen. There is several fluid-filled and prominently dilated loops of small bowel, especially in the left and upper abdomen. The small bowel loops more distally in the left lower quadrant, remain fluid-filled, however are less dilated, and there is gradually decreased distention of bowel loops up until a apparent transition point in the lower mid abdominal mesentery, series 2 image 79. This is adjacent to an area of a Saba's pouch formation, and may be due to adhesions. There is a left abdominal colostomy, and the large bowel is mostly decompressed with some mild fluid filling. Lymph nodes: No retroperitoneal, mesenteric, or pelvic lymphadenopathy. Peritoneum / Retroperitoneum: No free fluid or air within the abdomen. Vessels: No infrarenal aortic aneurysm. Moderate aortoiliac calcification. Bones and soft tissues: No suspicious lesion in the bones. IMPRESSION: Evidence of a partial small bowel obstruction, with a transition point seen in the lower mid abdomen possibly due to adhesions, adjacent to a Saba's pouch, status post left abdominal colostomy formation. Electronically signed by Mitchel Dominique 01-01-2025 2:31 PM
[2025-01-01] MEDS: SODIUM CHLORIDE 0.9% 1,000 ML IV SCH (14:45)
--- NOTE | 2025-01-01 15:10 | History & Physical Report ---
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 Perry who recommended monitoring exam and symptoms for now, however, he would need NG tube if he progresses monitor symptoms and abdominal exam currently benign -IV fluids, IV antiemetics, n.p.o. - continue Zofran IV as needed, morphine 2 mg IV as needed moderate pain and 4 mg as needed severe pain, IV acetaminophen 1 g every 8 hours as needed - monitor electrolytes and CBC. Current leukocytosis is related to the bowel ob struction and emesis. creatinine is slightly elevated above his baseline # diabetes mellitus type 2 - His usual glargine is 70 units at bedtime also with as needed aspart and 2 mg of semaglutide weekly, last dose 12/31 IV fluids with D5 half NS plus+20 of potassium blood glucose checks every 6 hours while NPO reduce glargine to 12 units every 12 hours, aspart correctional scale based on his usual daily insulin dose placed pharmacy glycemic control consult # hypertension, sinus tachycardia heart rate currently elevated in the low 1 teens, related to bowel obstruction and beta-charlotte withdrawal. He is usually on 120 mg of long-acting propranolol daily I will replace this with metoprolol 5 mg IV every 6 hours and additional doses as needed # acute toxic metabolic encephalopathy - somnolent but opens eyes easily to voice and answers direct questions partially related to acute illness and also IM Phenergan given at his nursing facility today # Hyperlipidemia restart atorvastatin once taking p.o. # neurogenic bladder with suprapubic catheter urine is currently clear and I am not very suspicious of a UTI. Urinalysis with reflex culture is pending however expect he will be colonized continue SP catheter flushes 60 mL every shift and as needed # abdominal postoperative wounddoes not appear infected continue daily dressing changes, with loose iodoform packing covering with gauze # right ischial decubitus ulcer continue wound care with foam dressing, consult wound ostomy nurse # DVT ppx - enoxaparin, SCDs Arden's sister confirms that he is DNR/DNI I updated his sister at bedside in the ED, reviewed previous [facility] records, reviewed records sent from his History of Present Illness Chief Complaint: Vomiting Primary Care Provider: [facility] 69 y/o with CP and developmental delay, recent colostomy for chronic sigmoid volvulus, neurogenic bladder with SP catheter. Came in by EMS from his [facility] with vomiting. According to facility and ED projectile vomiting started last night. Facility gave phenergan IM today, continued vomiting. EMS gave IV zofran. Not vomiting on arrival to ED, not in pain and abdominal exam benign. CT obtained which showed partial small bowel obstruction. Colostomy is functioning. has small to medium amount of brown liquid stool in the bag and unknown when it was last changed, there is not really any gas in the bag. He is sleepy because of the Phenergan given earlier today but he will open his eyes when addressed and ask straightforward questions. He is a limited historian because of his Developmental delay but able to tell me that he is not having any abdominal pain or nausea currently, he feels slightly short of breath but is not coughing and does not have chest pain. his sister is at the bedside and provides additional history she says he got his colostomy a couple of months ago and his surgeon was about ready to sign off on him except for a small amount of abdominal wound which is still healing and has been a little bit red. He got some antibiotics for this within the last couple of weeks based on my review of the [facility] records it was Bactrim given in the first week of December. She also says that his SP catheter clogs easily. Allergies Allergy/AdvReac Type Severity Reaction Status Date / Time lisinopril Allergy Unknown Unknown Verified 12/04/24 11:11 sulfamethoxazole AdvReac Unknown Nausea Verified 12/04/24 11:11 [From Bactrim] trimethoprim [From Bactrim] AdvReac Unknown Nausea Verified 12/04/24 11:11 Home Medications Medication Instructions Recorded Confirmed Type blood-glucose meter (OneTouch #1 ea 11/05/18 11/24/24 History Verio Meter) cholecalciferol (vitamin D3) 25 3,000 units PO DAILY 11/05/18 12/04/24 History mcg (1,000 unit) tablet Wheelchair (Manual) #1 ea 04/01/19 11/24/24 Rx diaper,brief,adult,disposable #48 ea 06/30/19 11/24/24 Rx blood sugar diagnostic (OneTouch #100 ea 04/10/20 11/24/24 Rx Ultra Blue Test Strip) atorvastatin 20 mg tablet 20 mg PO HS 02/26/24 12/04/24 History acetaminophen 325 mg tablet 650 mg PO Q6H PRN Pain/Fever 04/26/24 12/04/24 History (Tylenol) ondansetron HCl 4 mg tablet 4 mg PO Q6H PRN Nausea And Vomiting 07/30/24 12/04/24 History polyethylene glycol 3350 17 gram 17 g PO DAILY 12/04/24 12/04/24 History oral powder packet (Miralax) promethazine 25 mg/mL injection 25 mg IM Q6H PRN Nausea And 12/04/24 12/04/24 History solution Vomiting semaglutide 2 mg/dose (8 mg/3 mL) 2 mg subcut WK 12/04/24 12/04/24 History subcutaneous pen injector (Ozempic) sulfamethoxazole 800 1 tab PO BID #14 tabs 12/04/24 Rx mg-trimethoprim 160 mg tablet (Bactrim DS) Past Med/Surg History Problem List Small bowel obstruction due to adhesions Vomiting (Acute) Vomiting (Acute) Abdominal pain (Acute) Acute intestinal pseudo-obstruction (Acute) Small bowel obstruction Otorrhea Tympanic membrane perforation Cerumen impaction Chronic diarrhea 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 Hypomagnesemia (Acute) Intellectual disability (Acute) Acute pyelonephritis (Acute) Colon distention (Acute) Abdominal distension (Acute) History of obstruction of large intestine Carpal tunnel syndrome, right Cervical radicular pain Bladder calculus Obstructed suprapubic catheter Chronic constipation with overflow incontinence Diarrhea Diabetes mellitus, type 2 Neuromuscular dysfunction of bladder Cough Encounter for pre-operative examination Hypokalemia VIKY (acute kidney injury) Acute dehydration (Acute) Infected pressure ulcer (Acute) Acute renal failure (Acute) Leukocytosis (Acute) Generalized weakness (Acute) Acute anemia (Acute) Cellulitis of right leg Constipation Skin tear of elbow without complication (Acute) Abrasion of knee, bilateral (Acute) Diabetic ulcer of right foot (Acute) Diabetic ulcer of left foot (Acute) Foot pain, right Clubfoot of right lower extremity Wound of right foot Gross hematuria Urinary retention Indwelling Hernandez catheter present Traumatic wound Pressure injury of sacral region, stage 2 (Acute) Paraplegia (Chronic) Acute confusion (Acute) Tachycardia (Acute) Discharge planning issues DVT prophylaxis Dehydration (Acute) DNR (do not resuscitate) Metabolic encephalopathy (Acute) UTI (urinary tract infection) due to urinary indwelling catheter (Acute) Acute UTI (urinary tract infection) (Acute) Sepsis (Acute) Spina bifida (Chronic) Cerebral palsy (Chronic) History of macrocytic anemia Hypertension Hyponatremia Tachypnea Elevated serum creatinine Complicated UTI (urinary tract infection) Weakness Cellulitis of left leg (Acute) Spina bifida (Chronic) Macrocytic anemia Catheter-associated urinary tract infection (Acute) Abdominal distension (gaseous) (Chronic) Hyperlipidemia Anemia Diabetes (Chronic) UTI (urinary tract infection) (Acute) Cerebral palsy Sepsis associated hypotension (Acute) Cellulitis of left lower extremity (Acute) Balanitis (Acute) Altered mental status (Acute) Dehydration (Acute) HTN (hypertension) (Chronic) Medical History [facility] Industry syndrome Urinary tract infection associated with indwelling urethral catheter Hx of sepsis History of pressure ulcer Hx of macrocytic anemia Chronic constipation with overflow incontinence Cervical radicular pain History of bladder stone Spina bifida Paraplegia Abdominal distension hx chronic intermittent abdominal distention History of cellulitis hx left lower extremity/recurrent cellulitis. History of sepsis Balanitis History of tachycardia Right club foot Cerebral palsy Hypertension Type 2 diabetes mellitus History of small bowel obstruction 10/2023 Cognitive communication deficit Acute kidney failure, unspecified Muscle weakness (generalized) Enterocolitis due to Clostridium difficile, recurrent onset 10/2021 Hyperlipidemia Benign prostatic hyperplasia with lower urinary tract symptoms Hx: UTI (urinary tract infection) complicated uti noted on faxed info. PVD (peripheral vascular disease) did not observe on faxed info. History of COVID-19 07/2022 Anemia hx macrocytic anemia Unspecified intellectual disabilities [facility] Suprapubic catheter Heart disease Per intermediate records Patient's sister (HIPAA contact) denies Surgical History History of carpal tunnel surgery of right wrist (11/2023) Presence of urogenital implants S/P cystoscopy cystolithopaxy w/ replacement suprapubic cath History of colonoscopy History of esophagogastroduodenoscopy (EGD) Presence of cardiac and vascular implant and graft Noted in intermediate records with the associated date 2015, [facility] at [facility]- no evidence of cardiac or vascular implant/graft noted at that time- no further details per available intermediate records Patient's sister (Maribeth, HIPAA contact) denies Family History Mother Peripheral vascular disease Other Cancer Diabetes Heart disease Hypertension Denies family history of Ovarian cancer Prostate cancer Myocardial infarction Breast cancer Colorectal cancer Social History Smoking Status: Former smoker Tobacco Type: Cigarettes Hx Alcohol Use: No Hx Substance Use: No Preferred Language: Faroese Communication Ability: Effective Visual Impairment: No Limitations Hearing Ability: Hard of Hearing School [employer] Required: No Beliefs That Will Affect Care: None marital status: Single Current Living Situation: Jail Current Living Situation Comment: [facility] current occupational status: disabled Feels Safe at Home: Yes Diet: regular caffeine: Yes during the past year weight has: remained stable Dental Care, Regularly: No Physical Activity Frequency: Does not Exercise Seatbelt Use: never Assistive Devices: Denture - Upper, Denture - Lower, Hospital Bed and Wheelchair Review of Systems Review of Systems: Unobtainable due to cognitive status ( Currently sleepy and has developmental delay, limited review of systems as per HPI) Physical Exam Physical Exam: Last 24h vitals reviewed GEN: no acute distress, sleeping HEENT: pupils equal, sclerae anicteric, try MM RESP: normal WOB, CTAB anterior CV: reg no mrg mildly tachycardic ABD: soft mildly to moderately distended and tympanic, nontender no rebound rigidity or guarding, hypotonic bowel tones are present left lower quadrant colostomy stoma is entirely pink and there is a moderate amount of light brown liquid stool in the bag without any gas. He has a small abdominal wound medial to the ostomy which is packed with iodoform there is no significant surrounding erythema or foul odor : SP catheter in place, no erythema surrounding the catheter site, clear yellow urine in bag, penis appears normal SKIN: warm and dry, no generalized rashes extremities: His feet are cool with a little bit of mottling and acrocyanosis of his toes, DP pulses are intact. no foot wounds observed NEURO: Sleepy but arousable to voice PERRL face symmetric answered straightforward questions with few words replies, moves upper extremities spontaneously, paraplegic Results & Data Results & Data Vital Signs (Past 12 Hours) Vital Signs Temp Pulse Pulse Resp BP BP Pulse Ox 01/01/25 14:38 112 H 22 146/95 H 96 01/01/25 13:00 115 H 24 127/88 94 01/01/25 12:42 120 H 01/01/25 12:39 119 H 16 94 01/01/25 12:21 36.5 C 119 H 16 119/91 94 O2 Del Method 01/01/25 14:38 Room Air 01/01/25 13:00 Room Air 01/01/25 12:42 01/01/25 12:39 Room Air 01/01/25 12:21 Room Air Laboratory Results white blood count elevated of 16K, hemoglobin normal at 16 and platelets normal chemistry panel with normal sodium, normal potassium at 3.7, no metabolic acidosis, creatinine 1.0 which is mildly above his baseline of 0.8-0.9, total bilirubin 1.4 AST/ALT normal, lipase normal Diagnostic Findings CT abdomen and pelvis with IV contrast notable for partial small bowel obstruction with transition point in lower mid abdomen adjacent to a Saba's pouch personally reviewed the CT images and agree with this interpretation in addition the bowel does appear quite dilated as was the stomach, the lung bases appear fairly clear with some dependent atelectasis PG Care Time/CCT Total # of Minutes Spent Total Time Spent with Patient: Total time spent is greater than 50% in coordination of care (as documented) at patient's floor/unit and/or counseling patient: Coding Level of Care Code 16276 INT INP/OBS CARE 3/75MIN Diagnoses Small bowel obstruction due to adhesions K56.50 Diabetes mellitus, type 2 E11.9 Paraplegia G82.20
[2025-01-01 18:05] LABS: Appearance Urine Clear (Clear); Glucose Urine UA Negative (Negative)
[2025-01-01 18:13] LABS: Epithelial Cell Urine 0-2 /hpf (0-2)
[2025-01-01] MEDS ORDERED: PHARMACY GLYCEMIC MGMT CONSULT PRN (18:20)
[2025-01-01] MEDS ORDERED: CARBOHYDRATES FOR HYPOGLYCEMIA PO PRN (18:20)
[2025-01-01] MEDS ORDERED: HYDROmorphone INJ 0.5 MG/0.5 ML SYR IV PRN ×2 (18:20)
[2025-01-01] MEDS ORDERED: GLUCAGON FOR INJ 1 MG VIAL SQ PRN (18:20)
[2025-01-01] MEDS ORDERED: GLUCOSE 10 TAB/TUBE PO PRN (18:20)
[2025-01-01] MEDS ORDERED: DEXTROSE 50% 50 ML SYRINGE IV PRN (18:20)
[2025-01-01] MEDS ORDERED: ACETAMINOPHEN 1,000 MG/100 ML VIAL IV PRN (18:20)
[2025-01-01] MEDS ORDERED: GLUCOSE 40% GEL 15 GM TUBE PO PRN (18:20)
[2025-01-01] MEDS: METOPROLOL TARTRATE 1 MG/ML VIAL IV SCH (18:40)
[2025-01-01] MEDS: INSULIN ASPART PER UNIT CHARGE SC SCH (18:46)
[2025-01-01] MEDS: ENOXAPARIN INJ 40 MG/0.4 ML SYR SQ SCH (19:44)
[2025-01-01] MEDS: D5W AND 1/2NSS + 20MEQ KCL 20 MEQ/1,000 ML BAG IV SCH (19:44)
[2025-01-01] MEDS: ONDANSETRON INJ 2 MG/ML 2 ML VIAL IV PRN (19:45)
[2025-01-01] MEDS: LANTUS PER UNIT CHARGE SQ SCH (21:07)
[2025-01-02] MEDS: SODIUM CHLOR 0.45% + 20MEQ KCL 20 MEQ/1,000 ML BAG IV SCH (01:31)
[2025-01-02] MEDS: INSULIN ASPART PER UNIT CHARGE SC SCH (03:53)
--- NOTE | 2025-01-02 06:17 | XRay Report ---
EXAM: XR KUB/Abdomen 1 view CLINICAL HISTORY: Confirm NG tube placement TECHNIQUE: X-ray image of upper abdomen with lower chest was obtained AP projection. COMPARISON: CT 01/01/2025 reviewed. FINDINGS: Gas Pattern: NG tube is seen in place, newly visualised. Mild dilatation of bowel loops under view. Soft Tissues: Soft tissues of the abdomen appear normal without evidence of masses or calcifications. Chest: Clear lung bases. IMPRESSION: A nasogastric tube is seen with its tip in normal position in the stomach. Electronically signed by Cristopher Knowles 01-02-2025 06:16 AM
[2025-01-02 07:05] LABS: Hematocrit (blood only) 44.8 % (42.0-52.0); Hemoglobin 15.8 g/dl (14.0-18.0); Mean Corpuscular Hemoglobin 31.6 pg (25.0-34.0); Mean Corpuscular Volume 89.6 fL (80.0-100.0); Platelet Count 290 K/uL (130-400); RDW Standard Deviation 50.2 fL (36.4-46.3); Red Blood Count 5.00 M/uL (4.70-6.10); White Blood Count 13.45 K/ul (4.8-10.8)
[2025-01-02 07:44] LABS: Alanine Aminotransferase 20.0 U/L (7-52); Albumin Globulin Ratio 1.4 (0.9-2); Alkaline Phosphatase 117.0 U/L (34-104); Anion Gap 10.0 (3-11); Bilirubin,Total 1.4 mg/dl (0.2-1.0); Blood Urea Nitrogen 21.0 mg/dl (6-23); Calcium 9.7 mg/dl (8.6-10.3); Carbon Dioxide 29.0 mmol/L (21-32); Chloride 98.0 mmol/L (98-107); Creatinine Clr Calc Pharmacy 67.3 ml/min; Globulin 3.1 gm/dl (2.5-4.0); Glucose 210.0 mg/dl (70-99(Fasting)); Magnesium 2.1 mg/dl (1.7-2.4); Potassium 4.4 mmol/L (3.5-5.1); Sodium 137.0 mmol/L (136-145); Total Protein 7.4 gm/dl (6.0-8.3)
--- NOTE | 2025-01-02 10:38 | Pharmacy Report ---
Pharmacy Glycemic Short Note 2 - Date of Service January 02, 2025 - Glycemic Short BSG Results (Last 24 hours): 01/01/25 01/01/25 01/01/25 12:58 18:39 20:59 Glucose 202 H POC Glucose 201 H 214 H 01/01/25 01/01/25 01/02/25 22:25 23:33 03:48 Glucose POC Glucose 230 H 271 H 225 H 01/02/25 01/02/25 01/02/25 04:03 06:31 07:56 Glucose 210 H POC Glucose 219 H 169 H OUTPATIENT ANTIDIABETIC REGIMEN: * Lantus 70 units SQ HS * NovoLog SS * Ozempic 2mg SQ QWK * HbA1c 8.9% (10/14/24) ASSESSMENT: * Arden is a 69 year old male admitted with a partial small bowel obstruction and a history of type 2 diabetes mellitus. Pharmacy has been consulted to assist with glycemic management while inpatient. He is currently NPO. * Pharmacy was consulted for glycemic management during Arden's small bowel obstruction last year. He required significantly less basal insulin while NPO. Will initiate a basal scale based on BSGs at this time only if BSGs become elevated. * NovoLog at a weight based stress of 2. PLAN FOR INPATIENT GLYCEMIC CONTROL: * Hold outpatient oral diabetes medications * Basal insulin * Lantus 0-10 units SQ BID (see eMAR for additional details) * Bolus insulin * NovoLog per scale ACHS or Q6hrs while NPO * Goal Range: Low 110 mg/dL - High 140 mg/dL * Correction Factor: 25 mg/dL/unit * Nutritional / Prandial insulin per carb ratio of 1 unit per 8 grams CHO consumed
[2025-01-02] MEDS: SODIUM CHLORIDE 0.9% 1,000 ML IV ONE (16:01)
--- NOTE | 2025-01-02 19:10 | Hospitalist Progress Note ---
Date of Service January 02, 2025 Assessment & Plan (1) Small bowel obstruction due to adhesions: (2) Diabetes mellitus, type 2: (3) Paraplegia: Plan 69-year-old man with cerebral palsy and spina bifida leading to paraplegia, intellectual disability, and recent colostomy for chronic volvulus/[place] syndrome [facility] and vomiting, found to have partial small bowel obstruction on CT of the abdomen and pelvis with contrast # partial small bowel obstruction - with transition point likely related to adhesions, located next to Deonte pouch - ED discussed with general surgeon Dr. Perry who recommended conservative care - NG placed evening after admission monitor symptoms and abdominal exam currently benign -IV fluids, IV antiemetics, n.p.o. - continue Zofran IV as needed, morphine 2 mg IV as needed moderate pain and 4 mg as needed severe pain, IV acetaminophen 1 g every 8 hours as needed - monitor electrolytes and CBC. Current leukocytosis is related to the bowel obstruction and emesis unchanged. creatinine has improved to 1.0. Lytes are normal - based on KUB which I personally reviewed (shows some dilated bowel) and exam, stool output of 20 mL today, he remains obstructed # diabetes mellitus type 2 - His usual glargine is 70 units at bedtime also with as needed aspart and 2 mg of semaglutide weekly, last dose 12/31 IV fluids with D5 half NS plus+20 of potassium blood glucose checks every 6 hours while NPO reviewed BG and well controlled today appreciate pharmacy glycemic control consult # hypertension, sinus tachycardia He is usually on 120 mg of long-acting propranolol daily I will replace this with metoprolol 5 mg IV every 6 hours and additional doses as needed -no longer tachycardic as of this evening # acute toxic metabolic encephalopathy - related to acute illness and also IM Phenergan given at his nursing facility -resolved now at baseline # Hyperlipidemia restart atorvastatin once taking p.o. # neurogenic bladder with suprapubic catheter urine is currently clear and I am not very suspicious of a UTI. Urinalysis with reflex culture is pending however expect he will be colonized continue SP catheter flushes 60 mL every shift and as needed # abdominal postoperative wounddoes not appear infected continue daily dressing changes, with loose iodoform packing covering with gauze # right ischial decubitus ulcer continue wound care with foam dressing, consult wound ostomy nurse # DVT ppx - enoxaparin, SCDs Arden's sister confirmed that he is DNR/DNI I updated his sister at bedside in the ED 01/01 Admission and Anticipated Discharge Date Admission Date: January 01, 2025 Subjective Arden had to get an NG tube overnight for nausea and emesis. He says he feels better now and denies abdominal pain, nausea, or shortness of breath, no chest pain He is no longer somnolent, fully alert Physical Exam 2 Physical Exam: Last 24h vitals reviewed GEN: no acute distress, awake sitting in bed HEENT: pupils equal, sclerae anicteric, NG tube bilious drainage RESP: normal WOB, CTAB anterior CV: reg no mrg mildly tachycardic ABD: soft mildly to moderately distended and tympanic, nontender no rebound rigidity or guarding, hypotonic bowel tones are present - unchanged. LLQ stoma pink, small amt light brown stool in bag He has a small abdominal wound medial to the ostomy which is packed with iodoform there is no significant surrounding erythema or foul odor : SP catheter in place, no erythema surrounding the catheter site, clear yellow urine in bag, penis appears normal SKIN: warm and dry, no generalized rashes extremities: His feet are warmer with acrocyanosis of his toes, DP pulses are intact. NEURO: AOx4 answered straightforward questions with few words replies, moves upper extremities spontaneously, paraplegic Results & Data Results & Data Vital Signs (Past 12 Hours) Vital Signs Temp Pulse Pulse Resp BP BP Pulse Ox 01/02/25 18:04 85 130/77 01/02/25 17:49 85 132/76 01/02/25 17:15 92 H 01/02/25 16:34 36.6 C 92 H 16 138/84 96 01/02/25 12:32 120 H 01/02/25 12:10 93 H 123/79 01/02/25 11:55 94 H 144/89 H 01/02/25 11:42 36.6 C 94 H 16 144/89 H 96 01/02/25 07:54 36.7 C 104 H 20 158/96 H 95 O2 Del Method 01/02/25 18:04 01/02/25 17:49 01/02/25 17:15 01/02/25 16:34 Room Air 01/02/25 12:32 01/02/25 12:10 01/02/25 11:55 01/02/25 11:42 Room Air 01/02/25 07:54 Room Air Laboratory Results 01/02/25 06:31 01/02/25 06:31 PG Care Time/CCT Total # of Minutes Spent Total Time Spent with Patient: Total time spent is greater than 50% in coordination of care (as documented) at patient's floor/unit and/or counseling patient: Coding Level of Care Code 83206 SUB INP/OBS CARE 3/50MIN Diagnoses Small bowel obstruction due to adhesions K56.50 Diabetes mellitus, type 2 E11.9 Paraplegia G82.20
[2025-01-02] MEDS: LANTUS PER UNIT CHARGE SQ SCH (20:21)
[2025-01-02] MEDS ORDERED: LANTUS PER UNIT CHARGE SQ SCH (21:00)
[2025-01-02] MEDS: D5W AND 1/2NSS + 20MEQ KCL 20 MEQ/1,000 ML BAG IV SCH (21:23)
[2025-01-03 07:42] LABS: Hematocrit (blood only) 38.7 % (42.0-52.0); Hemoglobin 13.3 g/dl (14.0-18.0); Mean Corpuscular Hemoglobin 31.4 pg (25.0-34.0); Mean Corpuscular Volume 91.5 fL (80.0-100.0); Platelet Count 172 K/uL (130-400); RDW Standard Deviation 50.7 fL (36.4-46.3); Red Blood Count 4.23 M/uL (4.70-6.10); White Blood Count 7.07 K/ul (4.8-10.8)
[2025-01-03 07:59] LABS: Alanine Aminotransferase 13.0 U/L (7-52); Albumin Globulin Ratio 1.4 (0.9-2); Alkaline Phosphatase 89.0 U/L (34-104); Anion Gap 4.0 (3-11); Bilirubin,Total 1.3 mg/dl (0.2-1.0); Blood Urea Nitrogen 16.0 mg/dl (6-23); Calcium 8.6 mg/dl (8.6-10.3); Carbon Dioxide 29.0 mmol/L (21-32); Chloride 104.0 mmol/L (98-107); Creatinine Clr Calc Pharmacy 88.1 ml/min; Globulin 2.5 gm/dl (2.5-4.0); Glucose 161.0 mg/dl (70-99(Fasting)); Magnesium 1.9 mg/dl (1.7-2.4); Potassium 4.0 mmol/L (3.5-5.1); Sodium 137.0 mmol/L (136-145); Total Protein 6.1 gm/dl (6.0-8.3)
--- NOTE | 2025-01-03 09:34 | XRay Report ---
KUB HISTORY: SBO COMPARISON STUDY: 01/02/2025 FINDINGS: Nasogastric tube tip is in the proximal stomach with sidehole just beyond the GE junction. There is diffuse small bowel distention measuring up to 5 cm diameter, grossly stable. No significant colonic distention seen. Low pelvic catheter is present. IMPRESSION: Stable small bowel obstruction. ACT 112: Negative or not required by law. The above report was generated using voice recognition software. It may contain grammatical, syntax o r spelling errors. Electronically signed by: Kvng Bhatt M.D. 01/03/2025 9:33 AM
--- NOTE | 2025-01-03 11:29 | Hospitalist Progress Note ---
Date of Service January 03, 2025 Assessment & Plan (1) Small bowel obstruction due to adhesions: (2) Diabetes mellitus, type 2: (3) Paraplegia: Plan 69-year-old man with cerebral palsy and spina bifida leading to paraplegia, intellectual disability, and recent colostomy for chronic volvulus/Concord syndrome in October at [facility] who is admitted from his halfway with nausea and vomiting, found to have partial small bowel obstruction on CT of the abdomen and pelvis with contrast # small bowel obstruction - with transition point likely related to adhesions, located next to Deonte pouch -IV fluids, IV antiemetics, n.p.o. - continue Zofran IV as needed, morphine 2 mg IV as needed moderate pain and 4 mg as needed severe pain, IV acetaminophen 1 g every 8 hours as needed - monitor electrolytes and CBC. WBC normalized to 7, lytes normal, Cr improved to 0.77 - KUB continues to appear obstructed today - ostomy output 220 yesterday and NG 1100, making good UOP - continues to present as partial obstruction but no improvement thus far, will consult general surgery # diabetes mellitus type 2 - His usual glargine is 70 units at bedtime also with as needed aspart and 2 mg of semaglutide weekly, last dose 12/31 IV fluids with D5 half NS plus+20 of potassium blood glucose checks every 6 hours while NPO BG well controlled appreciate pharmacy glycemic control consult # hypertension, sinus tachycardia He is usually on 120 mg of long-acting propranolol daily tachycardia resolved, continue metoprolol 5 mg IV every 6 hours and additional doses as needed # acute toxic metabolic encephalopathy - related to acute illness and also IM Phenergan given at his nursing facility -resolved now at baseline # Hyperlipidemia restart atorvastatin once taking p.o. # neurogenic bladder with suprapubic catheter urine is currently clear and I am not very suspicious of a UTI. Urine culture was sent and has E. coli and enterococcus but this reflects colonization. Monitor for s/sx of UTI continue SP catheter flushes 60 mL every shift and as needed # abdominal postoperative wounddoes not appear infected continue daily dressing changes, with loose iodoform packing covering with gauze # right ischial decubitus ulcer continue wound care with foam dressing, consult wound ostomy nurse # DVT ppx - enoxaparin, SCDs Arden's sister confirmed that he is DNR/DNI I updated his sister at bedside in the ED 01/01 Admission and Anticipated Discharge Date Admission Date: January 01, 2025 Subjective Arden continues to deny pain or nausea. Not much output from colostomy in last 48h and remains distended Physical Exam Physical Exam: Last 24h vitals reviewed GEN: no acute distress, awake sitting in bed, remains very pleasant HEENT: pupils equal, sclerae anicteric, NG tube bilious drainage RESP: normal WOB, CTAB anterior CV: reg no mrg mildly tachycardic ABD: soft moderately distended and tympanic, nontender no rebound rigidity or guarding, NG tube sounds. LLQ stoma pink, scant brown stool in ostomy bag He has a small postsurgical abdominal wound medial to the ostomy which is packed with iodoform there is no significant surrounding erythema or foul odor : SP catheter in place, no erythema surrounding the catheter site, clear yellow urine in bag SKIN: warm and dry, no generalized rashes extremities: His feet are warmer with acrocyanosis of his toes, DP pulses are intact. NEURO: AOx4 answered straightforward questions with few words replies, moves upper extremities spontaneously, paraplegic Results & Data Results & Data Vital Signs (Past 12 Hours) Vital Signs Temp Pulse Pulse Resp BP BP Pulse Ox 01/03/25 07:37 36.3 C L 81 18 137/79 92 01/03/25 06:02 84 01/03/25 05:47 90 140/76 01/03/25 05:46 90 140/76 01/03/25 03:32 36.5 C 85 19 122/72 94 01/03/25 00:08 86 01/02/25 23:51 95 H 128/73 O2 Del Method 01/03/25 07:37 Room Air 01/03/25 06:02 01/03/25 05:47 01/03/25 05:46 01/03/25 03:32 Room Air 01/03/25 00:08 01/02/25 23:51 Diagnostic Findings Personally reviewed KUB film - persistent dilated loops of small bowel consistent with SBO, unchanged PG Care Time/CCT Total # of Minutes Spent Total Time Spent with Patient: Total time spent is greater than 50% in coordination of care (as documented) at patient's floor/unit and/or counseling patient: Coding Level of Care Code 22809 SUB INP/OBS CARE 50MIN Diagnoses Small bowel obstruction due to adhesions K56.50 Diabetes mellitus, type 2 E11.9 Paraplegia G82.20
--- NOTE | 2025-01-03 15:52 | Surgery Consultation ---
Date of Consultation January 03, 2025 Assessment & Plan (1) Partial small bowel obstruction: (2) Small bowel obstruction due to adhesions: S/p Saba's in October for recurrent/chronic sigmoid volvulus. Now with partial SBO on ct scan with decreased ostomy output. Ostomy now functioning s/p NGT placement. Abdomen soft mildly distended. Plan: can clamp NGT and check residual after 4 hours Continue IV fluids continue medical management No surgical intervention required will follow along Dr. Woodson has seen and examined patient, agrees with above. Supervising Physician Co-Signing Physician Notes I have seen and examined the patient and agree with the above assessment and plan. Of note, he had a Saba's procedure with sigmoid colostomy earlier this year. CT scan demonstrates a partial small bowel obstruction. On exam, his a bdomen is soft, nontender; there is gas and stool in the bag. We will clamp his NG tube for now. No surgical intervention required at this time. Will continue to follow. If minimal output in the NG tube over the next 4 to 6 hours, the NG tube may be removed. History of Present Illness Reason for Consultation: SBO Requesting Physician: Hansa Guerra MD Attending Physician: Hansa Guerra MD History of Present Illness 69 y/o with CP and developmental delay, recent colostomy for chronic sigmoid volvulus, neurogenic bladder with SP catheter came in by EMS from his SNF [facility] with vomiting. According to facility and ED projectile vomiting started last night. CT obtained which showed partial small bowel obstruction. Colostomy is functioning. He states he is having some abdominal pain but not much. Colostomy is working, states he is emptying the gas in the bag. Nursing states they have emptied the bag already today with gas and stool. NGT with 1 liter since placement but slowing down. Allergies Allergy/AdvReac Type Severity Reaction Status Date / Time lisinopril Allergy Unknown Unknown Verified 01/01/25 17:15 sulfamethoxazole AdvReac Unknown Nausea Verified 01/01/25 17:15 [From Bactrim] trimethoprim [From Bactrim] AdvReac Unknown Nausea Verified 01/01/25 17:15 Home Medications Medication Instructions Recorded Confirmed Type blood-glucose meter (OneTouch #1 ea 11/05/11/24/24 History Verio Meter) cholecalciferol (vitamin D3) 25 3,000 units PO QAM 11/05/18 01/01/25 History mcg (1,000 unit) tablet Wheelchair (Manual) #1 ea 04/01/19 11/24/24 Rx diaper,brief,adult,disposable #48 ea 06/30/19 11/24/24 Rx blood sugar diagnostic (OneTouch #100 ea 04/10/20 11/24/24 Rx Ultra Blue Test Strip) atorvastatin 20 mg tablet 20 mg PO HS 02/26/24 01/01/25 History acetaminophen 325 mg tablet 650 mg PO Q6H PRN Pain/Fever 04/26/24 01/01/25 History (Tylenol) ondansetron HCl 4 mg tablet 4 mg PO Q6H PRN Nausea And Vomiting 07/30/24 01/01/25 History polyethylene glycol 3350 17 gram 17 g PO QAM 12/04/24 01/01/25 History oral powder packet (Miralax) promethazine 25 mg/mL injection 25 mg IM Q6H PRN Nausea And 12/04/24 01/01/25 History solution Vomiting semaglutide 2 mg/dose (8 mg/3 mL) 2 mg subcut WK 12/04/24 01/01/25 History subcutaneous pen injector (Ozempic) cyanocobalamin (vitamin B-12) 1,000 mcg IM MONTHLY 01/01/25 01/01/25 History 1,000 mcg/mL injection solution insulin aspart U-100 100 unit/mL 1 sliding scale dose subcut ACHS 01/01/25 01/01/25 History subcutaneous solution insulin glargine-yfgn 100 unit/mL 70 unit subcut HS 01/01/25 01/01/25 History (3 mL) subcutaneous pen magnesium chloride 64 mg 64 mg PO QAM 01/01/25 01/01/25 History (magnesium chloride) tablet,delayed release (Mag 64) magnesium oxide 400 mg PO BID 01/01/25 01/01/25 History propranolol 120 mg capsule,24 120 mg PO QAM 01/01/25 01/01/25 History hr,extended release Patient History Medical History skilled nursing resident [facility] Liscomb syndrome Urinary tract infection associated with indwelling urethral catheter Hx of sepsis History of pressure ulcer Hx of macrocytic anemia Chronic constipation with overflow incontinence Cervical radicular pain History of bladder stone Spina bifida Paraplegia Abdominal distension hx chronic intermittent abdominal distention History of cellulitis hx left lower extremity/recurrent cellulitis. History of sepsis Balanitis History of tachycardia Right club foot Cerebral palsy Hypertension Type 2 diabetes mellitus History of small bowel obstruction 10/2023 Cognitive communication deficit Acute kidney failure, unspecified Muscle weakness (generalized) Enterocolitis due to Clostridium difficile, recurrent onset 10/2021 Hyperlipidemia Benign prostatic hyperplasia with lower urinary tract symptoms Hx: UTI (urinary tract infection) complicated uti noted on faxed info. PVD (peripheral vascular disease) did not observe on faxed info. History of COVID-19 07/2022 Anemia hx macrocytic anemia Unspecified intellectual disabilities skilled nursing resident [facility] Suprapubic catheter Heart disease Per halfway records Patient's sister (HIPAA contact) denies Surgical History History of carpal tunnel surgery of right wrist (11/2023) Presence of urogenital implants S/P cystoscopy cystolithopaxy w/ replacement suprapubic cath History of colonoscopy History of esophagogastroduodenoscopy (EGD) Presence of cardiac and vascular implant and graft Noted in halfway records with the associated date 2015, [facility] at [facility]- no evidence of cardiac or vascular implant/graft noted at that time- no further details per available halfway records Patient's sister (Maribeth, HIPAA contact) denies Family History Mother Peripheral vascular disease Other Cancer Diabetes Heart disease Hypertension Denies family history of Ovarian cancer Prostate cancer Myocardial infarction Breast cancer Colorectal cancer Social History Smoking Status: Former smoker Tobacco Type: Cigarettes Second Hand Exposure: No; Do You Dip or Chew Tobacco: No; Tobacco Cessation Education Requested by Patient: No Hx Alcohol Use: No Hx Substance Use: No Preferred Language: Brazilian Communication Ability: Effective Visual Impairment: No Limitations Hearing Ability: Hard of Hearing Parent Partner Required: No Beliefs That Will Affect Care: None marital status: Single Current Living Situation: [facility] Facility Current Living Situation Comment: [facility] [place] current occupational status: disabled Other Information That Helps Us Care for You: Yes ([facility]) Feels Safe at Home: Yes Safety Concerns: Feels Safe At This Time Diet: regular caffeine: Yes during the past year weight has: remained stable Dental Care, Regularly: No Physical Activity Frequency: Does not Exercise Seatbelt Use: never Assistive Devices: Wheelchair Assistive Devices Comment: Sydnie Lift Physical Exam Constitutional: WD/WN, vitals as above + obese, cooperative and comfortable; no acute distress and not ill appearing Respiratory: normal respiratory effort; no respiratory distress and no labored breathing Gastrointestinal (Abdomen): Inspection/Auscultation: abdomen normal to inspection, + abdomen distended (mild) and + abdominal surgical incision Percussion/Palpation: + abdomen tender (generalized) and abdomen soft; no guarding, abdomen not rigid and abdomen not firm LLQ colostomy with brown soft stool and gas in bag Skin: no rashes, warm and dry Psychiatric: Orientation: alert Results & Data Vital Signs (Past 12 Hours) Vital Signs Temp Pulse Pulse Resp BP BP BP 01/03/25 15:26 36.8 C 79 19 168/91 H 01/03/25 14:42 81 01/03/25 12:42 78 132/82 01/03/25 12:21 85 154/83 H 01/03/25 11:50 36.4 C L 77 20 144/77 H 01/03/25 11:16 01/03/25 07:37 36.3 C L 81 18 137/79 01/03/25 06:02 84 01/03/25 05:47 90 140/76 01/03/25 05:46 90 140/76 01/03/25 05:39 87 Pulse Ox O2 Del Method 01/03/25 15:26 93 Room Air 01/03/25 14:42 01/03/25 12:42 01/03/25 12:21 01/03/25 11:50 96 Room Air 01/03/25 11:16 Room Air 01/03/25 07:37 92 Room Air 01/03/25 06:02 01/03/25 05:47 01/03/25 05:46 01/03/25 05:39 Laboratory Results 01/03/25 01/03/25 01/03/25 Range/Units 11:47 08:10 07:24 WBC 7.07 (4.8-10.8) K/ul RBC 4.23 L (4.70-6.10) M/uL Hgb 13.3 L (14.0-18.0) g/dl Hct 38.7 L (42.0-52.0) % MCV 91.5 (80.0-100.0) fL MCH 31.4 (25.0-34.0) pg MCHC 34.4 (32.0-36.0) g/dL RDW Std Deviation 50.7 H (36.4-46.3) fL RDW Coeff of Renée 15.0 H (11.5-14.5) % Plt Count 172 (130-400) K/uL MPV 8.7 L (9.4-12.4) fL Sodium 137 (136-145) mmol/L Potassium 4.0 (3.5-5.1) mmol/L Chloride 104 (98-107) mmol/L Carbon Dioxide 29 (21-32) mmol/L Anion Gap 4 (3-11) BUN 16 (6-23) mg/dl Creatinine 0.77 (0.6-1.4) mg/dl Est Cr Clr Drug Dosing 88.1 ml/min eGFR 95.72 BUN/Creatinine Ratio 20.8 H (10-20) Glucose 161 H (70-99(Fasting)) mg/dl POC Glucose 156 H 144 H (70-99) mg/dl Calcium 8.6 (8.6-10.3) mg/dl Magnesium 1.9 (1.7-2.4) mg/dl Total Bilirubin 1.3 H (0.2-1.0) mg/dl AST 16 (13-39) U/L ALT 13 (7-52) U/L Alkaline Phosphatase 89 (34-104) U/L Total Protein 6.1 (6.0-8.3) gm/dl Albumin 3.6 (3.4-5.0) gm/dl Globulin 2.5 (2.5-4.0) gm/dl Albumin/Globulin Ratio 1.4 (0.9-2) 01/03/25 01/02/25 01/02/25 Range/Units 03:39 23:48 20:19 WBC (4.8-10.8) K/ul RBC (4.70-6.10) M/uL Hgb (14.0-18.0) g/dl Hct (42.0-52.0) % MCV (80.0-100.0) fL MCH (25.0-34.0) pg MCHC (32.0-36.0) g/dL RDW Std Deviation (36.4-46.3) fL RDW Coeff of Renée (11.5-14.5) % Plt Count (130-400) K/uL MPV (9.4-12.4) fL Sodium (136-145) mmol/L Potassium (3.5-5.1) mmol/L Chloride (98-107) mmol/L Carbon Dioxide (21-32) mmol/L Anion Gap (3-11) BUN (6-23) mg/dl Creatinine (0.6-1.4) mg/dl Est Cr Clr Drug Dosing ml/min eGFR BUN/Creatinine Ratio (10-20) Glucose (70-99(Fasting)) mg/dl POC Glucose 158 H 140 H 97 (70-99) mg/dl Calcium (8.6-10.3) mg/dl Magnesium (1.7-2.4) mg/dl Total Bilirubin (0.2-1.0) mg/dl AST (13-39) U/L ALT (7-52) U/L Alkaline Phosphatase (34-104) U/L Total Protein (6.0-8.3) gm/dl Albumin (3.4-5.0) gm/dl Globulin (2.5-4.0) gm/dl Albumin/Globulin Ratio (0.9-2) 07/27/25 Range/Units 16:38 WBC (4.8-10.8) K/ul RBC (4.70-6.10) M/uL Hgb (14.0-18.0) g/dl Hct (42.0-52.0) % MCV (80.0-100.0) fL MCH (25.0-34.0) pg MCHC (32.0-36.0) g/dL RDW Std Deviation (36.4-46.3) fL RDW Coeff of Renée (11.5-14.5) % Plt Count (130-400) K/uL MPV (9.4-12.4) fL Sodium (136-145) mmol/L Potassium (3.5-5.1) mmol/L Chloride (98-107) mmol/L Carbon Dioxide (21-32) mmol/L Anion Gap (3-11) BUN (6-23) mg/dl Creatinine (0.6-1.4) mg/dl Est Cr Clr Drug Dosing ml/min eGFR BUN/Creatinine Ratio (10-20) Glucose (70-99(Fasting)) mg/dl POC Glucose 100 H (70-99) mg/dl Calcium (8.6-10.3) mg/dl Magnesium (1.7-2.4) mg/dl Total Bilirubin (0.2-1.0) mg/dl AST (13-39) U/L ALT (7-52) U/L Alkaline Phosphatase (34-104) U/L Total Protein (6.0-8.3) gm/dl Albumin (3.4-5.0) gm/dl Globulin (2.5-4.0) gm/dl Albumin/Globulin Ratio (0.9-2) Diagnostic Findings EXAMINATION: CT of the abdomen and pelvis performed after the administration of IV contrast TECHNIQUE: Helical CT images from the lung bases through the symphysis pubis were obtained with contrast. Coronal and sagittal reformatted images were generated at a workstation for further assessment. Dose reduction techniques were achieved by using automatic exposure control and/or adjustment of mA and/or kV according to patient size and/or use of iterative reconstruction technique. COMPARISON: 12/04/2024 HISTORY: Abdominal pain FINDINGS: Lower chest: No consolidation. No pleural effusion or pneumothorax. Liver: No suspicious liver lesions. Portal veins appear patent. Gallbladder: No gallstones. No evidence of acute cholecystitis. Spleen: Normal size. Pancreas: No suspicious pancreatic lesions. The pancreatic duct is not dilated. Adrenal glands: No adrenal nodules. Kidneys: No hydronephrosis or obstructing renal stones. Few tiny cysts. Bladder / Pelvic organs: Suprapubic urinary bladder catheter. The bladder wall appears thickened, which may be due to cystitis and/or sequelae of chronic outlet obstruction.. Bowel: The appendix is not well-seen. There is several fluid-filled and prominently dilated loops of small bowel, especially in the left and upper abdomen. The small bowel loops more distally in the left lower quadrant, remain fluid-filled, however are less dilated, and there is gradually decreased distention of bowel loops up until a apparent transition point in the lower mid abdominal mesentery, series 2 image 79. This is adjacent to an area of a Saba's pouch formation, and may be due to adhesions. There is a left abdominal colostomy, and the large bowel is mostly decompressed with some mild fluid filling. Lymph nodes: No retroperitoneal, mesenteric, or pelvic lymphadenopathy. Peritoneum / Retroperitoneum: No free fluid or air within the abdomen. Vessels: No infrarenal aortic aneurysm. Moderate aortoiliac calcification. Bones and soft tissues: No suspicious lesion in the bones. IMPRESSION: Evidence of a partial small bowel obstruction, with a transition point seen in the lower mid abdomen possibly due to adhesions, adjacent to a Saba's pouch, status post left abdominal colostomy formation. Electronically signed by Mitchel Dominique 01-01-2025 2:31 PM KUB 01/03/2025 HISTORY: SBO COMPARISON STUDY: 01/02/2025 FINDINGS: Nasogastric tube tip is in the proximal stomach with sidehole just beyond the GE junction. There is diffuse small bowel distention measuring up to 5 cm diameter, grossly stable. No significant colonic distention seen. Low pelvic catheter is present. IMPRESSION: Stable small bowel obstruction. I personally reviewed images above and concur with above findings.
--- NOTE | 2025-01-04 06:05 | Electrocardiogram Report ---
Test Reason : Blood Pressure : */* mmHG Vent. Rate : 117 BPM Atrial Rate : 117 BPM P-R Int : 156 ms QRS Dur : 86 ms QT Int : 324 ms P-R-T Axes : 35 106 48 degrees QTcB Int : 451 ms Sinus tachycardia Rightward axis Possible Inferior infarct (cited on or before 17-Dec-2023) Poor R wave progression, consider anterior NJ vs. lead placement vs. LVH Abnormal ECG When compared with ECG of 04-Dec-2024 10:20, Nonspecific T wave abnormality no longer evident in Anterior leads Confirmed by Mauricio Meek ([id number]) on 01/04/2025 6:04:33 AM Referred By: [facility] Confirmed By: Mauricio Meek
[2025-01-04 06:25] LABS: Hematocrit (blood only) 38.2 % (42.0-52.0); Hemoglobin 13.2 g/dl (14.0-18.0); Mean Corpuscular Hemoglobin 31.0 pg (25.0-34.0); Mean Corpuscular Volume 89.7 fL (80.0-100.0); Platelet Count 178 K/uL (130-400); RDW Standard Deviation 47.7 fL (36.4-46.3); Red Blood Count 4.26 M/uL (4.70-6.10); White Blood Count 8.29 K/ul (4.8-10.8)
[2025-01-04 06:41] LABS: Alanine Aminotransferase 11.0 U/L (7-52); Albumin Globulin Ratio 1.3 (0.9-2); Alkaline Phosphatase 86.0 U/L (34-104); Anion Gap 5.0 (3-11); Bilirubin,Total 1.4 mg/dl (0.2-1.0); Blood Urea Nitrogen 8.0 mg/dl (6-23); Calcium 8.6 mg/dl (8.6-10.3); Carbon Dioxide 24.0 mmol/L (21-32); Chloride 106.0 mmol/L (98-107); Creatinine Clr Calc Pharmacy 99.3 ml/min; Globulin 2.8 gm/dl (2.5-4.0); Glucose 168.0 mg/dl (70-99(Fasting)); Magnesium 1.7 mg/dl (1.7-2.4); Potassium 4.1 mmol/L (3.5-5.1); Sodium 135.0 mmol/L (136-145); Total Protein 6.4 gm/dl (6.0-8.3)
--- NOTE | 2025-01-04 08:23 | Pharmacy Report ---
Pharmacy Glycemic Short Note 2 - Date of Service January 04, 2025 - Glycemic Short BSG Results (Last 24 hours): 01/03/25 01/03/25 01/03/25 11:47 16:11 20:20 Glucose POC Glucose 156 H 152 H 139 H 01/03/25 01/04/25 01/04/25 23:38 03:36 05:59 Glucose 168 H POC Glucose 154 H 142 H 01/04/25 08:06 Glucose POC Glucose 174 H OUTPATIENT ANTIDIABETIC REGIMEN: * Lantus 70 units SQ HS * NovoLog SS * Ozempic 2mg SQ QWK * HbA1c 8.9% (10/14/24) ASSESSMENT: * Arden is a 69 year old male admitted with a partial small bowel obstruction and a history of type 2 diabetes mellitus. Pharmacy has been consulted to assist with glycemic management while inpatient. He is currently NPO. * Pharmacy was consulted for glycemic management during Arden's small bowel obstruction last year. He required significantly less basal insulin while NPO. Will initiate a basal scale based on BSGs at this time only if BSGs become elevated. * NovoLog at a weight based stress of 2. 7: * BSGs over the past 24 hours were 240-181-302-152-139-154 mg/dL. Fasting this morning was 168 mg/dL. * Patient received 5 units of insulin yesterday (all bolus). Given uptrend in fasting BSG, will give a one time dose of lantus this morning and resume scale with minor parameter adjustments. Will continue current novolog scale * Patient remains NPO but on D5 1/2NS @125mL/hr PLAN FOR INPATIENT GLYCEMIC CONTROL: * Hold outpatient oral diabetes medications * Basal insulin * Lantus 0-10 units SQ BID (see eMAR for additional details) * Bolus insulin * NovoLog per scale ACHS or Q6hrs while NPO * Goal Range: Low 110 mg/dL - High 140 mg/dL * Correction Factor: 25 mg/dL/unit * Nutritional / Prandial insulin per carb ratio of 1 unit per 8 grams CHO c onsumed
--- NOTE | 2025-01-04 08:32 | Surgery Progress Note ---
Date of Service January 04, 2025 Assessment & Plan (1) Partial small bowel obstruction: (2) Small bowel obstruction due to adhesions: Plan: S/p Saba's in October for recurrent/chronic sigmoid volvulus. Now with partial SBO on ct scan with decreased ostomy output. Ostomy now functioning s/p NGT placement. Abdomen soft mildly distended. Plan: remove NGT start clears, go slowly Continue IV fluids continue medical management No surgical intervention required will follow along Admission and Anticipated Discharge Date Admission Date: January 01, 2025 Subjective feeling good, no abdominal pain ostomy chnaged last night no pain with tube being clamped, or complaints overnight by nursing Physical Exam Constitutional: WD/WN, vitals as above cooperative and comfortable; no acute distress and not ill appearing Respiratory: normal respiratory effort; no respiratory distress Gastrointestinal (Abdomen): Inspection/Auscultation: abdomen normal to inspection and + hypoactive bowel sounds; abdomen not distended Percussion/Palpation: abdomen soft; abdomen nontender, no guarding, abdomen not rigid and abdomen not firm NGT clamped, LLQ ostomy with liquid/soft brown stool Skin: no rashes, warm and dry Psychiatric: Orientation: alert Results & Data Vital Signs (Past 12 Hours) Vital Signs Temp Pulse Pulse Resp BP BP Pulse Ox 01/04/25 08:08 36.4 C L 86 18 157/90 H 97 01/04/25 07:26 81 01/04/25 05:34 89 01/04/25 05:19 89 162/90 H 01/04/25 05:18 89 162/90 H 01/04/25 02:45 36.7 C 86 18 165/92 H 98 01/03/25 23:59 74 01/03/25 23:44 93 H 169/91 H 01/03/25 22:55 36.5 C 85 18 169/91 H 98 01/03/25 21:48 83 O2 Del Method 01/04/25 08:08 Room Air 01/04/25 07:26 01/04/25 05:34 01/04/25 05:19 01/04/25 05:18 01/04/25 02:45 Room Air 01/03/25 23:59 01/03/25 23:44 01/03/25 22:55 Room Air 01/03/25 21:48 Laboratory Results 01/04/25 01/04/25 01/04/25 Range/Units 08:06 05:59 03:36 WBC 8.29 (4.8-10.8) K/ul RBC 4.26 L (4.70-6.10) M/uL Hgb 13.2 L (14.0-18.0) g/dl Hct 38.2 L (42.0-52.0) % MCV 89.7 (80.0-100.0) fL MCH 31.0 (25.0-34.0) pg MCHC 34.6 (32.0-36.0) g/dL RDW Std Deviation 47.7 H (36.4-46.3) fL RDW Coeff of Renée 14.7 H (11.5-14.5) % Plt Count 178 (130-400) K/uL MPV 8.7 L (9.4-12.4) fL Sodium 135 L (136-145) mmol/L Potassium 4.1 (3.5-5.1) mmol/L Chloride 106 (98-107) mmol/L Carbon Dioxide 24 (21-32) mmol/L Anion Gap 5 (3-11) BUN 8 (6-23) mg/dl Creatinine 0.69 (0.6-1.4) mg/dl Est Cr Clr Drug Dosing 99.3 ml/min eGFR 98.94 BUN/Creatinine Ratio 11.6 (10-20) Glucose 168 H (70-99(Fasting)) mg/dl POC Glucose 174 H 142 H (70-99) mg/dl Calcium 8.6 (8.6-10.3) mg/dl Magnesium 1.7 (1.7-2.4) mg/dl Total Bilirubin 1.4 H (0.2-1.0) mg/dl AST 16 (13-39) U/L ALT 11 (7-52) U/L Alkaline Phosphatase 86 (34-104) U/L Total Protein 6.4 (6.0-8.3) gm/dl Albumin 3.6 (3.4-5.0) gm/dl Globulin 2.8 (2.5-4.0) gm/dl Albumin/Globulin Ratio 1.3 (0.9-2) 01/03/25 01/03/25 01/03/25 Range/Units 23:38 20:20 16:11 WBC (4.8-10.8) K/ul RBC (4.70-6.10) M/uL Hgb (14.0-18.0) g/dl Hct (42.0-52.0) % MCV (80.0-100.0) fL MCH (25.0-34.0) pg MCHC (32.0-36.0) g/dL RDW Std Deviation (36.4-46.3) fL RDW Coeff of Renée (11.5-14.5) % Plt Count (130-400) K/uL MPV (9.4-12.4) fL Sodium (136-145) mmol/L Potassium (3.5-5.1) mmol/L Chloride (98-107) mmol/L Carbon Dioxide (21-32) mmol/L Anion Gap (3-11) BUN (6-23) mg/dl Creatinine (0.6-1.4) mg/dl Est Cr Clr Drug Dosing ml/min eGFR BUN/Creatinine Ratio (10-20) Glucose (70-99(Fasting)) mg/dl POC Glucose 154 H 139 H 152 H (70-99) mg/dl Calcium (8.6-10.3) mg/dl Magnesium (1.7-2.4) mg/dl Total Bilirubin (0.2-1.0) mg/dl AST (13-39) U/L ALT (7-52) U/L Alkaline Phosphatase (34-104) U/L Total Protein (6.0-8.3) gm/dl Albumin (3.4-5.0) gm/dl Globulin (2.5-4.0) gm/dl Albumin/Globulin Ratio (0.9-2) 01/03/25 Range/Units 11:47 WBC (4.8-10.8) K/ul RBC (4.70-6.10) M/uL Hgb (14.0-18.0) g/dl Hct (42.0-52.0) % MCV (80.0-100.0) fL MCH (25.0-34.0) pg MCHC (32.0-36.0) g/dL RDW Std Deviation (36.4-46.3) fL RDW Coeff of Renée (11.5-14.5) % Plt Count (130-400) K/uL MPV (9.4-12.4) fL Sodium (136-145) mmol/L Potassium (3.5-5.1) mmol/L Chloride (98-107) mmol/L Carbon Dioxide (21-32) mmol/L Anion Gap (3-11) BUN (6-23) mg/dl Creatinine (0.6-1.4) mg/dl Est Cr Clr Drug Dosing ml/min eGFR BUN/Creatinine Ratio (10-20) Glucose (70-99(Fasting)) mg/dl POC Glucose 156 H (70-99) mg/dl Calcium (8.6-10.3) mg/dl Magnesium (1.7-2.4) mg/dl Total Bilirubin (0.2-1.0) mg/dl AST (13-39) U/L ALT (7-52) U/L Alkaline Phosphatase (34-104) U/L Total Protein (6.0-8.3) gm/dl Albumin (3.4-5.0) gm/dl Globulin (2.5-4.0) gm/dl Albumin/Globulin Ratio (0.9-2)
[2025-01-04] MEDS: LANTUS PER UNIT CHARGE SC STA (08:41)
[2025-01-04] MEDS: INSULIN ASPART PER UNIT CHARGE SC SCH (11:45)
--- NOTE | 2025-01-04 17:58 | Hospitalist Progress Note ---
Date of Service January 04, 2025 Assessment & Plan (1) Small bowel obstruction due to adhesions: (2) Diabetes mellitus, type 2: (3) Paraplegia: Plan 69-year-old man with cerebral palsy and spina bifida leading to paraplegia, intellectual disability, and recent colostomy for chronic volvulus/[place] syndrome in October at [facility] who is admitted from his retirement with nausea and vomiting, found to have partial small bowel obstruction on CT of the abdomen and pelvis with contrast # small bowel obstruction - with transition point likely related to adhesions, located next to Deonte pouch - treated conservatively with NG tube,IV fluids, IV antiemetics, seems to have resolved, NG tube removed today clear liquid diet, advance diet as tolerated # diabetes mellitus type 2 - His usual glargine is 70 units at bedtime also with as needed aspart and 2 mg of semaglutide weekly, last dose 12/31 IV fluids with D5 half NS plus+20 of potassium blood glucose checks every 6 hours while NPO BG well controlledglucoses reviewed today appreciate pharmacy glycemic control consult # hypertension, sinus tachycardia He is usually on 120 mg of long-acting propranolol daily he continues to have uncontrolled hypertension and persistent sinus tachycardia a lot of the time he was treated with IV metoprolol scheduled while on NG tube resume usual propranolol 120 mg long-acting daily, assess response # acute toxic metabolic encephalopathy - related to acute illness and also IM Phenergan given at his nursing facility -resolved now at baseline # Hyperlipidemia restart atorvastatin # neurogenic bladder with suprapubic catheter urine is currently clear and I am not very suspicious of a UTI. Urine culture was sent and has E. coli and enterococcus but this reflects colonization. Monitor for s/sx of UTI continue SP catheter flushes 60 mL every shift and as needed - tends to get blocked catheter pretty easily # abdominal postoperative wounddoes not appear infected continue daily dressing changes, with loose iodoform packing covering with gauze reviewed photo from [facility] today # right ischial decubitus ulcer continue wound care with foam dressing, consulted wound ostomy nurse # DVT ppx - enoxaparin, SCDs transferring to [facility] Arden's sister confirmed that he is DNR/DNI I updated his sister at bedside in the ED 01/01 plan is to return [facility] once he advances his diet successfully Admission and Anticipated Discharge Date Admission Date: January 01, 2025 Subjective continues to have stool and gas output from the ostomy, distention improved tolerated NG clamping yesterday NG tube removed this morning per general surgery and now on clear liquid diet he denies any abdominal pain nausea vomiting or shortness of breath Physical Exam 2 Physical Exam: Last 24h vitals reviewed GEN: no acute distress, lying in bed, always has very pleasant interactions HEENT: pupils equal, sclerae anicteric, NG tube was removed RESP: normal WOB, CTAB anterior CV: reg no mrg ABD: soft mildly to moderately distended and tympanic, nontender no rebound rigidity or guarding, NG tube sounds. LLQ stoma pink, small amount of liquid brown stool in ostomy bag He has a small postsurgical abdominal wound medial to the ostomy which is clean there is no significant surrounding erythema or foul odorreviewed photo and wound nurse note today : SP catheter in place, no erythema surrounding the catheter site, clear yellow urine in bag SKIN: warm and dry, no generalized rashes extremities: warm well-perfused without edema. NEURO: AOx4 answered straightforward questions with few words replies, moves upper extremities spontaneously, paraplegic Results & Data Results & Data Vital Signs (Past 12 Hours) Vital Signs Temp Pulse Pulse Resp BP BP BP 01/04/25 17:34 112 H 172/95 H 01/04/25 16:45 36.4 C L 115 H 19 143/84 H 01/04/25 15:15 98 H 01/04/25 12:09 36.6 C 94 H 20 178/91 H 01/04/25 12:07 94 H 178/91 H 01/04/25 11:46 98 H 167/107 H 01/04/25 08:08 36.4 C L 86 18 157/90 H 01/04/25 07:26 81 Pulse Ox O2 Del Method 01/04/25 17:34 01/04/25 16:45 95 Room Air 01/04/25 15:15 01/04/25 12:09 97 Room Air 01/04/25 12:07 01/04/25 11:46 01/04/25 08:08 97 Room Air 01/04/25 07:26 Laboratory Results 01/04/25 05:59 01/04/25 05:59 PG Care Time/CCT Total # of Minutes Spent Total Time Spent with Patient: Total time spent is greater than 50% in coordination of care (as documented) at patient's floor/unit and/or counseling patient: Coding Level of Care Code 55316 SUB INP/OBS CARE 2/35MIN Diagnoses Small bowel obstruction due to adhesions K56.50 Diabetes mellitus, type 2 E11.9 Paraplegia G82.20
[2025-01-04] MEDS ORDERED: ACETAMINOPHEN 325 MG TAB PO PRN (17:59)
[2025-01-04] MEDS: ATORVASTATIN 20 MG TAB PO SCH (20:53)
--- NOTE | 2025-01-05 08:32 | Surgery Progress Note ---
Date of Service January 05, 2025 Assessment & Plan (1) Partial small bowel obstruction: (2) Small bowel obstruction due to adhesions: Plan: S/p Saba's in October for recurrent/chronic sigmoid volvulus. partial SBO on ct scan with decreased ostomy output. Ostomy now functioning. Plan: october advance diet as tolerated slowly continue medical management No surgical intervention required our services signing off, call with questions/concerns Discussed with DR. Woodson who agrees with above. Admission and Anticipated Discharge Date Admission Date: January 01, 2025 Subjective feeling good nauseous last night, none today no abdominal pain tolerating liquids ostomy working Physical Exam Constitutional: WD/WN, vitals as above cooperative and comfortable; no acute distress and not ill appearing Respiratory: normal respiratory effort; no respiratory distress Gastrointestinal (Abdomen): Inspection/Auscultation: abdomen normal to inspection and + abdominal surgical scar (midline laparotomy scar); abdomen not distended Percussion/Palpation: abdomen soft; abdomen nontender, no guarding and abdomen not rigid Left abdominal ostomy with gas and soft brown stool present Skin: no rashes, warm and dry Psychiatric: Orientation: alert Results & Data Vital Signs (Past 12 Hours) Vital Signs Temp Pulse Pulse Pulse Resp BP BP 01/05/25 07:25 36.6 C 92 H 18 156/90 H 01/05/25 01:01 83 138/80 01/05/25 01:01 36.6 C 83 16 01/05/25 00:46 95 H 145/72 H 01/05/25 00:44 36.6 C 95 H 16 01/04/25 22:07 01/04/25 22:07 36.6 C 101 H 18 142/84 H 01/04/25 20:39 36.5 C 96 H 20 BP Pulse Ox Pulse Ox O2 Del Method O2 Del Method 01/05/25 07:25 95 Room Air 01/05/25 01:01 01/05/25 01:01 138/80 98 Room Air 01/05/25 00:46 01/05/25 00:44 145/72 H 95 Room Air 01/04/25 22:07 98 Room Air 01/04/25 22:07 98 Room Air 01/04/25 20:39 160/87 H 97 Room Air
[2025-01-05 08:35] LABS: Anion Gap 5.0 (3-11); Blood Urea Nitrogen 6.0 mg/dl (6-23); Calcium 8.8 mg/dl (8.6-10.3); Carbon Dioxide 25.0 mmol/L (21-32); Chloride 102.0 mmol/L (98-107); Creatinine Clr Calc Pharmacy 107.1 ml/min; Glucose 192.0 mg/dl (70-99(Fasting)); Magnesium 1.5 mg/dl (1.7-2.4); Potassium 3.8 mmol/L (3.5-5.1); Sodium 132.0 mmol/L (136-145)
[2025-01-05] MEDS: MAGNESIUM CHLORIDE W/CALCIUM 64MG DELAYED REL TAB PO SCH (08:35)
[2025-01-05] MEDS: PROPRANOLOL HCL 60 MG LA CAP PO SCH (08:36)
[2025-01-05] MEDS: POLYETHYLENE (MIRALAX) 17 GM PACK PO SCH (08:36)
[2025-01-05 08:42] LABS: Hematocrit (blood only) 37.8 % (42.0-52.0); Hemoglobin 13.3 g/dl (14.0-18.0); Mean Corpuscular Hemoglobin 30.9 pg (25.0-34.0); Mean Corpuscular Volume 87.7 fL (80.0-100.0); Platelet Count 211 K/uL (130-400); RDW Standard Deviation 46.8 fL (36.4-46.3); Red Blood Count 4.31 M/uL (4.70-6.10); White Blood Count 8.30 K/ul (4.8-10.8)
--- NOTE | 2025-01-05 13:10 | Hospitalist Progress Note ---
Date of Service January 05, 2025 Assessment & Plan (1) Small bowel obstruction due to adhesions: (2) Diabetes mellitus, type 2: (3) Paraplegia: Plan 69-year-old man with cerebral palsy and spina bifida leading to paraplegia, intellectual disability, and recent colostomy for chronic volvulus/[employer] syndrome in October at [facility] who is admitted from his halfway with nausea and vomiting, found to have partial small bowel obstruction on CT of the abdomen and pelvis with contrast #Small bowel obstruction - with transition point likely related to adhesions, located next to Deonte pouch Treated conservatively with NG tube,IV fluids, IV antiemetics SBO seems to have resolved, NG tube removed on 01/04 Surgery consult appreciated; signed off on 01/05 Advance to full liquid diet on 01/05 and tolerating well We will plan to advance to solid diet on the evening of 01/05 potential DC home on 01/06 if no setbacks #Diabetes mellitus type 2 - His usual glargine is 70 units at bedtime also with as needed aspart and 2 mg of semaglutide weekly, last dose 12/31 IV fluids with D5 discontinued on 01/05 due to diet advancement BSG ACHS BG well controlled while in the hospital Pharmacy glycemic consult appreciated # Hypertension, sinus tachycardia He is usually on 120 mg of long-acting propranolol daily He continues to have uncontrolled hypertension and persistent sinus tachycardia a lot of the time He was treated with IV metoprolol scheduled while on NG tube Resume usual propranolol 120 mg long-acting daily, assess response # Acute toxic metabolic encephalopathy - resolved Related to acute illness and also IM Phenergan given at his nursing facility Resolved, now at baseline #Hyperlipidemia Restart atorvastatin #Neurogenic bladder with suprapubic catheter Urine is currently clear Not very suspicious of a UTI. Urine culture was sent and has E. coli and enterococcus but this reflects colonization. Monitor for s/sx of UTI Continue SP catheter flushes 60 mL every shift and as needed - tends to get blocked catheter pretty easily #Abdominal postoperative wounddoes not appear infected Continue daily dressing changes, with loose iodoform packing covering with gauze #Right ischial decubitus ulcer continue wound care with foam dressing, consulted wound ostomy nurse Avinash farrell #DVT ppx - enoxaparin, SCDs Disposition: Continued stay on MedSurg for now; plan [facility] to [facility] once he advances his diet successfully Admission and Anticipated Discharge Date Admission Date: January 01, 2025 Supervising Physician Co-Signing Physician Notes Attending Attestation - Chart reviewed, care plan d/w ANA LUISA Montano. I agree w/ the ahmadi components of his documentation. Jose Holt MD Subjective Mr. Humphreys is resting peacefully in bed this morning watching TV. He is in no acute distress. He reports he had broth and Diet Coke this morning, and reported no abdominal pain or nausea following a clear liquid diet. He is happy to report that he has output in his ostomy this morning. No complaints at this time. No fevers overnight. ROS: Patient endorses ostomy output. Patient denies fever, chills, night sweats, chest pain, SOB, cough, abdominal pain, N/V, or changes in urinary habits. Review of Systems Review of Systems: See HPI above Physical Exam Physical Exam: General: no acute distress; pleasant affect; non-toxic appearing; well- nourished; cooperative; SpO2 96% on RA HEENT: normocephalic, atraumatic; no scleral icterus; PERRLA; vision and hearing intact Neck: supple; trachea midline Skin: warm, dry without signs of tenting; no cyanosis; no rashes, bruising, lesions, or erythema noted CV: chest wall NTP; RRR; pulses intact and symmetric at radial, DP, and PT Lungs: no acute respiratory distress; symmetrical chest wall expansion; clear breath sounds across all lung lake w/o adventitious sounds; no wheezing ABD: Soft; ostomy exhibits dark brown output (approximately penitentiary full); NTP in all 4 quadrants; no erythema or signs of infection around the ostomy site; BS present; no rebound/guarding; moderate abdominal distention, which may be secondary to body habitus v. SBO : SP catheter in place; clear yellow urine in bag MSK: no tics or fasciculations; no edema noted in the LEs b/l, nonerythematous; waffle boots in place Neuro: A&Ox3; normal mood and affect; fluent speech; no focal deficits appreciated; patient reports sensation is intact and symmetric in all extremities bilaterally Results & Data Results & Data Vital Signs (Past 12 Hours) Vital Signs Temp Pulse Resp BP Pulse Ox O2 Del Method 01/05/25 12:12 36.6 C 88 18 164/96 H 96 Room Air 01/05/25 07:25 36.6 C 92 H 18 156/90 H 95 Room Air PG Care Time/CCT Total # of Minutes Spent Total Time Spent with Patient: Total time spent is greater than 50% in coordination of care (as documented) at patient's floor/unit and/or counseling patient: Coding [place] [address] SUB INP/OBS CARE 3/50MIN Patient Type Established Medical Decision Making High Complexity Diagnoses Small bowel obstruction due to adhesions K56.50 Diabetes mellitus, type 2 E11.9 Paraplegia G82.20
--- NOTE | 2025-01-05 14:21 | Pharmacy Report ---
Pharmacy Glycemic Short Note 2 - Date of Service January 05, 2025 - Glycemic Short BSG Results (Last 24 hours): 01/04/25 01/04/25 01/05/25 16:16 20:47 07:43 Glucose 192 H POC Glucose 156 H 164 H 01/05/25 01/05/25 07:50 11:22 Glucose POC Glucose 181 H 153 H OUTPATIENT ANTIDIABETIC REGIMEN: * Lantus 70 units SQ HS * NovoLog SS * Ozempic 2mg SQ QWK * HbA1c 8.9% (10/14/24) ASSESSMENT: 01/05: * Arden received 21 units of insulin yesterday (10 were basal) * Fasting BSG this AM elevated, clarifying the need for continuing dextrose fluids with diet advancement. Also planning to increase basal scale at bedtime with diet advancement * No changes to NovoLog at this time. 01/04: * BSGs over the past 24 hours were [id number] mg/dL. Fasting this morning was 168 mg/dL. * Patient received 5 units of insulin yesterday (all bolus). Given uptrend in fasting BSG, will give a one time dose of lantus this morning and resume scale with minor parameter adjustments. Will continue current novolog scale * Patient remains NPO but on D5 1/2NS @125mL/hr 01/02: * Arden is a 69 year old male admitted with a partial small bowel obstruction and a history of type 2 diabetes mellitus. Pharmacy has been consulted to assist with glycemic management while inpatient. He is currently NPO. * Pharmacy was consulted for glycemic management during Arden's small bowel obstruction last year. He required significantly less basal insulin while NPO. Will initiate a basal scale based on BSGs at this time only if BSGs become elevated. * NovoLog at a weight based stress of 2. PLAN FOR INPATIENT GLYCEMIC CONTROL: * Hold outpatient oral diabetes medications * Basal insulin * Lantus 5-30 units SQ BID (see eMAR for additional details) * Bolus insulin * NovoLog per scale ACHS or Q6hrs while NPO * Goal Range: Low 110 mg/dL - High 140 mg/dL * Correction Factor: 25 mg/dL/unit * Nutritional / Prandial insulin per carb ratio of 1 unit per 8 grams CHO consumed
[2025-01-05] MEDS: MAGNESIUM SULFATE / D5W 1 GM/100 ML BAG IV ONE (17:37)
[2025-01-05] MEDS: LANTUS PER UNIT CHARGE SQ SCH (20:30)
[2025-01-06 10:19] LABS: Hematocrit (blood only) 39.8 % (42.0-52.0); Hemoglobin 14.0 g/dl (14.0-18.0); Immature Granulocytes # (auto) 0.02 K/uL (0.01-0.20); Immature Granulocytes % (auto) 0.2 %; Mean Corpuscular Hemoglobin 31.0 pg (25.0-34.0); Mean Corpuscular Volume 88.1 fL (80.0-100.0); Platelet Count 216 K/uL (130-400); RDW Standard Deviation 47.9 fL (36.4-46.3); Red Blood Count 4.52 M/uL (4.70-6.10); White Blood Count 8.20 K/ul (4.8-10.8)
[2025-01-06 10:28] LABS: Anion Gap 7.0 (3-11); Blood Urea Nitrogen 7.0 mg/dl (6-23); Calcium 9.1 mg/dl (8.6-10.3); Carbon Dioxide 25.0 mmol/L (21-32); Chloride 104.0 mmol/L (98-107); Creatinine Clr Calc Pharmacy 99.3 ml/min; Glucose 171.0 mg/dl (70-99(Fasting)); Magnesium 1.8 mg/dl (1.7-2.4); Potassium 4.0 mmol/L (3.5-5.1); Sodium 136.0 mmol/L (136-145)
--- NOTE | 2025-01-06 16:43 | Discharge Summary ---
Discharge Summary Date of Service January 06, 2025 Principal Dx & Hospital Course #1 = Principal Diagnosis (1) Small bowel obstruction due to adhesions: (2) Diabetes mellitus, type 2: (3) Paraplegia: Plan 69 years old male with PMH of DNR/DNI @ [facility], functional quadriplegia with cerebral palsy and spina bifida leading to chronic bilateral paraplegia, intellectual disability, and recent colostomy for chronic volvulus/[place] syndrome in October at [facility], who was admitted to the inpatient hospitalist service @ [facility] on 01/01/2025 with complaints of nausea and vomiting. Patient was subsequently diagnosed with an acute partial small bowel obstruction (as noted on 01/01/2025, 12:46pm CT abd/pelvis with IV contrast). The following medical issues were addressed while the patient remained in [facility] from 01/01/2025 through 01/06/2025: #Small bowel obstruction - with transition point likely related to adhesions, located next to Deonte pouch Treated conservatively with NG tube,IV fluids, IV antiemetics SBO seems to have resolved, NG tube removed on 01/04 Surgery consult appreciated; signed off on 01/05 Advance to full liquid diet on 01/05 and tolerating well Advanced to solid diet on the evening of 01/05 with no complaints of nausea/vomiting/abdominal pain, and eating/drinking solid diet well on 01/06/2025. Patient was subsequently discharged back to [facility] on 01/06/2025. Other secondary medical issues included: #Diabetes mellitus type 2 - His usual glargine is 70 units at bedtime also with as needed aspart and 2 mg of semaglutide weekly, last dose 12/31 IV fluids with D5 discontinued on 01/05 due to diet advancement BSG ACHS BG well controlled while in the hospital Pharmacy glycemic consult appreciated # Hypertension, sinus tachycardia He is usually on 120 mg of long-acting propranolol daily He continues to have uncontrolled hypertension and persistent sinus tachycardia a lot of the time He was treated with IV metoprolol scheduled while on NG tube Resume usual propranolol 120 mg long-acting daily, assess response # Acute toxic metabolic encephalopathy - resolved Related to acute illness and also IM Phenergan given at his nursing facility Resolved, now at baseline #Hyperlipidemia Restart atorvastatin #Neurogenic bladder with suprapubic catheter Urine is currently clear Not very suspicious of a UTI. Urine culture was sent and has E. coli and enterococcus but this reflects colonization. Monitor for s/sx of UTI Continue SP catheter flushes 60 mL every shift and as needed - tends to get blocked catheter pretty easily #Abdominal postoperative wounddoes not appear infected Continue daily dressing changes, with loose iodoform packing covering with gauze #Right ischial decubitus ulcer continue wound care with foam dressing, consulted wound ostomy nurse Avinash farrell #DVT ppx - enoxaparin, SCDs Disposition: Continued stay on MedSurg for now; plan [facility] to [facility] once he advances his diet successfully Admission HPI Per Admitting Provider 69 y/o with CP and developmental delay, recent colostomy for chronic sigmoid volvulus, neurogenic bladder with SP catheter. Came in by EMS from his [facility] with vomiting. According to facility and ED projectile vomiting started last night. Facility gave phenergan IM today, continued vomiting. EMS gave IV zofran. Not vomiting on arrival to ED, not in pain and abdominal exam benign. CT obtained which showed partial small bowel obstruction. Colostomy is functioning. has small to medium amount of brown liquid stool in the bag and unknown when it was last changed, there is not really any gas in the bag. He is sleepy because of the Phenergan given earlier today but he will open his eyes when addressed and ask straightforward questions. He is a limited historian because of his Developmental delay but able to tell me that he is not having any abdominal pain or nausea currently, he feels slightly short of breath but is not coughing and does not have chest pain. his sister is at the bedside and provides additional history she says he got his colostomy a couple of months ago and his surgeon was about ready to sign off on him except for a small amount of abdominal wound which is still healing and has been a little bit red. He got some antibiotics for this within the last couple of weeks based on my review of the [facility] records it was Bactrim given in the first week of December. She also says that his SP catheter clogs easily. Discharge Exam Constitutional General appearance: Comfortable, coherent, cooperative. Wide awake and alert. Not confused, lethargic, or obtunded. Speaks in complete, fluent, and articulate sentences without pause, interruption, cough, or wheeze. HEENT: NC/AT. EOMI. PERRL No rhinorrhea. No pharyngeal discharge. Neck: Supple, no stridor, bruit, goiter, JVD, or HJR. Lymph: No lymphadenopathy. Chest: Symmetric rise and fall with respirations. Non-tender to palpation. Lungs: Clear to auscultation and percussion. No audible wheeze, pectoriloquy, increase in tactile fremitus, or flatness/dullness to percussion at the bases. Heart: RRR, S1S2, no S3 or S4. Grade II/ early systolic murmur @ LLSB without radiation to the carotids, axilla, or back, and which remains invariant in regards to the respiratory cycle. Abd: Soft, non-tender, non-distended. No rebound, guarding, Lakhani's sign, or organomegaly. Bowel sounds auscultated in all 4 quadrants. Ext: No clubbing, cyanosis, or edema. 2+ pedal pulses bilaterally. Skin: No decubitus ulcer, exanthem, or enanthem. Neuro: Alert and oriented in regards to person, place, time, or situation. 5/5 motor strength in all 4 extremities, both proximally and distally. Psych: No suicidal ideation. No homicidal ideation. Discharge Plan Discharge Items Patient Disposition: Home - Self-Care Reason For Visit: SBO Discharge Diagnosis: Partial small bowel obstruction Condition on Discharge: Good Activity: Resume your previous activity Lifting: Gradually increase as tolerated Bathing: No limitations Sexual Activity: When tolerated Exercise/Sports: Gradually increase as tolerated Driving/Machine Use: No limitations Weightbearing: Full weightbearing Non-emergency contact: Primary Care Provider Call non-emergency contact if: you have any medication questions, your symptoms worsen, your pain is not controlled and you have a fever Follow-up/Referrals: [facility] [Primary Care Provider] - Diet: Heart Healthy Diet Texture: Dental soft (bite-sized) Addtl Attending Provider Instructions: See your PCP @ [facility] within 5-7 days of hospital discharge. Pending Studies at Discharge: No Stand-Alone Forms: [employer] Medications and DC Order Prescriptions: Continued (DME) Wheelchair (Manual) Device See Dose Instructions .ROUTE .MEDSUPPLY Qty: 1 0RF Dose Instruction: As directed Rx Instructions: Wheelchair Repair (DME) diaper,brief,adult,disposable Misc See Dose Instructions .ROUTE .MEDSUPPLY Qty: 48 2RF Rx Instructions: As directed (DME) OneTouch Ultra Blue Test Strip Strip See Dose Instructions .ROUTE .MEDSUPPLY Qty: 100 5RF Dose Instruction: As directed Rx Instructions: Test once a day (DME) blood-glucose meter [OneTouch Verio Meter] [facility] See Dose Instructions .ROUTE .MEDSUPPLY Qty: 1 Rx Instructions: USE TO TEST 3-4 TIMES DAILY PRN cholecalciferol (vitamin D3) 1,000 unit tablet 3,000 units PO QAM atorvastatin 20 mg tablet 20 mg PO HS acetaminophen [Tylenol] 325 mg Tablet 650 mg PO Q6H MDD 3g/24hr PRN (Reason: Pain/Fever) ondansetron HCl 4 mg Tablet 4 mg PO Q6H PRN (Reason: Nausea And Vomiting) polyethylene glycol 3350 [Miralax] 17 gram Powder In Packet 17 g PO QAM promethazine 25 mg/mL Solution 25 mg IM Q6H PRN (Reason: Nausea And Vomiting) insulin aspart U-100 100 unit/mL solution 1 sliding scale dose subcut ACHS Rx Instructions: 351-400 = 8 units; 401-450 = 12 units; 451-500 = 16units; 501-550 = 19units; 551 - 600 = 20units cyanocobalamin (vitamin B-12) 1,000 mcg/mL solution 1,000 mcg IM MONTHLY propranolol 120 mg capsule,extended release 24hr 120 mg PO QAM magnesium chloride [Mag 64] 64 mg Tablet,Delayed Release (Dr/Ec) 64 mg PO QAM magnesium oxide 400 mg magnesium Tablet 400 mg PO BID insulin glargine-yfgn 100 unit/mL (3 mL) insulin pen 70 unit SUBCUT HS Discontinued Ozempic 2 mg/dose (8 mg/3 mL) Pen Injector 2 mg subcut WK Rx Instructions: Fri Discharge Orders: Discharge Order (Routine); Ordered 01/06/25 Ordered By: Arden Kim/Other Patient Handouts: Small Bowel Obstruction Admission Data Admit Date/Time: 01/01/25 16:49 Attending Provider: Arden Olivia Admit Provider: Hansa Guerra Primary Care Provider: [facility] Other Providers: Hansa Guerra; Juarez Woodson Hospital Stay Data Consultations 01/01/25 15:28 ED Decision to Admit Stat 01/03/25 11:21 Consult General Surgery Routine Diagnostic Imagining Performed 01/01/25 12:46 CT Abd and Pelvis [CT abd pelvis IV con only] Stat Pending Results Patient Have Any Pending Studies at Discharge: No Discharge Instructions Given to Patient (Per Discharging Provider) See your PCP @ [facility] within 5-7 days of hospital discharge. Total Time Total Time Spent Total Time Spent (In Minutes): 35 minutes. Of this time period, 19 minutes were spent in coordinating patient's discharge. Coding Level of Care Code 56790 INP/OBS DISCH >30 MIN Diagnoses Small bowel obstruction due to adhesions K56.50 Diabetes mellitus, type 2 E11.9 Paraplegia G82.20
--- NOTE | 2025-01-06 19:20 | XRay Report ---
Clinical history: Vomiting 4 views of the abdomen were obtained Findings: There are prominent dilated small bowel loops, with colonic gas and gastric distention as well. No renal or ureteral calculi are seen. There is lumbar degenerative disc disease. A Hernandez catheter is present Impression: Suspected small bowel obstruction Electronically signed by Marcelo Wright 01-06-2025 7:19 PM
[2025-01-06] MEDS: PROCHLORPERAZINE 10 MG in SYRINGE 8 ML IV ONE (20:45)
[2025-01-06] MEDS: SODIUM CHLORIDE 0.9% 1,000 ML IV SCH (20:57)
[2025-01-06] MEDS: ACETAMINOPHEN 1,000 MG/100 ML VIAL IV STA (21:09)
[2025-01-06] MEDS ORDERED: Nursing to Pharmacy Communication SCH (21:30)
[2025-01-06] MEDS: PANTOprazole 40 MG/10 ML SYR IV SCH (21:46)
--- NOTE | 2025-01-06 23:22 | Communication Note ---
Date of Service: January 06, 2025 Notified by RN that patient had emesisx4 prior to shift change. Patient had stat KUB done that was consistent with SBO, discharge canceled and patient made NPO again. Patient seen at bedside, endorses moderate abdominal pain, but mostly nausea. Patient had some dry heaving after shift change followed by 1 small volume blood tinged emesis. Abdomen mildly distended, +TTP but without rigidity or guarding, bowel sounds present. RN reports that patient has continued to have loose ostomy output. Will resume conservative treatment approach (NPO, fluids, IV Protonix, IV Tylenol for pain, IV Zofran for N/V), suspect mild hematemesis most likely d/t Mallor Pettit tears from dry heaving, low suspicion for true upper GI bleed. Anticipate need for reevaluation by surgery in AM. If additional vomiting, will replace NG tube overnight. Patient also hypertensive and tachycardic overnight. On review of progress notes, patient required scheduled Lopressor earlier in hospital stay. Now that patient is NPO again, anticipate that patient will have worsening rebound tachycardia without his propranolol. As such, will upgrade back to PCU.
[2025-01-07] MEDS: INSULIN ASPART PER UNIT CHARGE SC SCH (00:15)
[2025-01-07] MEDS: METOPROLOL TARTRATE 1 MG/ML VIAL IV SCH (03:59)
--- NOTE | 2025-01-07 08:38 | XRay Report ---
KUB HISTORY: eval for SBO COMPARISON STUDY: 01/06/2025 FINDINGS: There is prominent gaseous distention of the stomach. There is small bowel distention measu ring up to 6 cm diameter. No significant colonic distention seen. No gross free air. Low pelvic eneida ter is stable. IMPRESSION: Stable prominent gaseous distention of the stomach and the small bowel consistent with sm all bowel obstruction. ACT 112: Negative or not required by law. The above report was generated using voice recognition software. It may contain grammatical, syntax o r spelling errors. Electronically signed by: Kvng Bhatt M.D. 01/07/2025 8:37 AM
[2025-01-07 09:11] LABS: Hematocrit (blood only) 40.7 % (42.0-52.0); Hemoglobin 14.5 g/dl (14.0-18.0); Immature Granulocytes # (auto) 0.07 K/uL (0.01-0.20); Immature Granulocytes % (auto) 0.5 %; Mean Corpuscular Hemoglobin 31.5 pg (25.0-34.0); Mean Corpuscular Volume 88.3 fL (80.0-100.0); Platelet Count 290 K/uL (130-400); RDW Standard Deviation 47.7 fL (36.4-46.3); Red Blood Count 4.61 M/uL (4.70-6.10); White Blood Count 15.36 K/ul (4.8-10.8)
[2025-01-07 09:28] LABS: Anion Gap 9.0 (3-11); Blood Urea Nitrogen 26.0 mg/dl (6-23); Calcium 9.4 mg/dl (8.6-10.3); Carbon Dioxide 23.0 mmol/L (21-32); Chloride 103.0 mmol/L (98-107); Creatinine Clr Calc Pharmacy 78.8 ml/min; Glucose 209.0 mg/dl (70-99(Fasting)); Magnesium 1.8 mg/dl (1.7-2.4); Potassium 4.3 mmol/L (3.5-5.1); Sodium 135.0 mmol/L (136-145)
--- NOTE | 2025-01-07 14:49 | Surgery Consultation ---
Date of Consultation January 07, 2025 Assessment & Plan (1) Small bowel obstruction due to adhesions: This is a 69y M with a PMH of spina bifida, cerebral palsy, HTN, HLD, DM2, neurogenic bladder with supra pubic catheter, history of hartmans this year, who presents to the [facility] ED on 01/01 with nausea/vomiting. CT scan on admission read as concern for partial SBO. General surgery was consulted and patient improved with conservative measures and NGT placement. His colostomy seems like it has been functioning throughout, but maybe initially was somewhat decreased. As his symptoms improved it was removed and he advanced diet as tolerates. Patient was planning on discharging yesterday, but ended up cancelling due to having multiple episodes of emesis. Repeat KUB showed concern for SBO. NGT replaced and we have been consulted for further management. Patient is known to the general surgical service as he has been admitted multiple times with similar problem. He seems to have a chronic functional bowel issue. On exam abdomen is soft, nontender, and not overly distended. Ostomy is viable with liquid stool and gas in the bag. Agree for now with replacement of NGT and NPO status for multiple episodes of emesis. He currently denies any nausea/vomiting/pain since insertion. We have no plans for surgical intervention in patient this admission. At some point could consider a contrasted imaging study if no improvements. Once he is improved may benefit from some sort of motility agents. Will follow, but t his will likely be a chronic problem for him. Supervising Physician Co-Signing Physician Notes Patient seen and examined, labs and imaging reviewed, agree with above. Patient known to service from prior admissions for neurogenic bowel. Since his last admission he has undergone Saba's procedure for suspected intermittent sigmoid volvulus. He has done well since then, he was admitted earlier this week and appeared to have resolving small bowel obstruction. He was scheduled for discharge, however vomited and KUB showed possible bowel obstruction. He is currently in no distress, afebrile stable vitals, abdomen soft, nontender. Ostomy with large amount of gas and some liquid in the bag. Initial CT scan and subsequent KUBs personally reviewed and interpreted. There is small bowel dilation, with some decompression on the initial CT scan, however on subsequent KUBs there is appear to be a substantial amount of air in the colon. On his most recent KUB, NG tube is in proper placement, small bowel is dilated, the transverse colon is also dilated. I suspect this is still the same process of neurogenic bowel that he has had in the past. Currently in no distress and his ostomy is functional. For now we will continue to watch. May benefit from irrigation/enemas through his ostomy if output slows down. If no improvement, may need oral contrasted study. Surgery will follow, call with questions or concerns. Discussed with the sister. History of Present Illness Attending Physician: Arden Olivia MD, PhD History of Present Illness This is a 69y M with a PMH of spina bifida, cerebral palsy, HTN, HLD, DM2, neurogenic bladder with supra pubic catheter, history of hartmans this year, who presents to the [facility] ED on 01/01 with nausea/vomiting. CT scan on admission read as concern for partial SBO. General surgery was consulted and patient improved with conservative measures and NGT placement. His colostomy seems like it has been functioning. As hi symptoms improved it was removed and he advanced diet as tolerates. Patient was planning on discharging yesterday, but ended up cancelling due to multiple episodes of emesis. Repeat KUB showed concern for SBO. NGT replaced and we have been consulted for further management. Patient tells me he has been vomiting last evening into today. No severe abdominal pain associated with this. His ostomy is functioning. Allergies Allergy/AdvReac Type Severity Reaction Status Date / Time lisinopril Allergy Unknown Unknown Verified 01/01/25 17:15 sulfamethoxazole AdvReac Unknown Nausea Verified 01/01/25 17:15 [From Bactrim] trimethoprim [From Bactrim] AdvReac Unknown Nausea Verified 01/01/25 17:15 Home Medications Medication Instructions Recorded Confirmed Type blood-glucose meter (OneTouch #1 ea 11/05/18 11/24/24 History Verio Meter) cholecalciferol (vitamin D3) 25 3,000 units PO QAM 11/05/18 01/01/25 History mcg (1,000 unit) tablet Wheelchair (Manual) #1 ea 04/01/19 11/24/24 Rx diaper,brief,adult,disposable #48 ea 06/30/19 11/24/24 Rx blood sugar diagnostic (OneTouch #100 ea 04/10/20 11/24/24 Rx Ultra Blue Test Strip) atorvastatin 20 mg tablet 20 mg PO HS 02/26/24 01/01/25 History acetaminophen 325 mg tablet 650 mg PO Q6H PRN Pain/Fever 04/26/24 01/01/25 History (Tylenol) ondansetron HCl 4 mg tablet 4 mg PO Q6H PRN Nausea And Vomiting 07/30/24 01/01/25 History polyethylene glycol 3350 17 gram 17 g PO QAM 12/04/24 01/01/25 History oral powder packet (Miralax) promethazine 25 mg/mL injection 25 mg IM Q6H PRN Nausea And 12/04/24 01/01/25 History solution Vomiting cyanocobalamin (vitamin B-12) 1,000 mcg IM MONTHLY 01/01/25 01/01/25 History 1,000 mcg/mL injection solution insulin aspart U-100 100 unit/mL 1 sliding scale dose subcut ACHS 01/01/25 01/01/25 History subcutaneous solution insulin glargine-yfgn 100 unit/mL 70 unit subcut HS 01/01/25 01/01/25 History (3 mL) subcutaneous pen magnesium chloride 64 mg 64 mg PO QAM 01/01/25 01/01/25 History (magnesium chloride) tablet,delayed release (Mag 64) magnesium oxide 400 mg PO BID 01/01/25 01/01/25 History propranolol 120 mg capsule,24 120 mg PO QAM 01/01/25 01/01/25 History hr,extended release Patient History Medical History shelter resident [facility] [place] syndrome Urinary tract infection associated with indwelling urethral catheter Hx of sepsis History of pressure ulcer Hx of macrocytic anemia Chronic constipation with overflow incontinence Cervical radicular pain History of bladder stone Spina bifida Paraplegia Abdominal distension hx chronic intermittent abdominal distention History of cellulitis hx left lower extremity/recurrent cellulitis. History of sepsis Balanitis History of tachycardia Right club foot Cerebral palsy Hypertension Type 2 diabetes mellitus History of small bowel obstruction 10/2023 Cognitive communication deficit Acute kidney failure, unspecified Muscle weakness (generalized) Enterocolitis due to Clostridium difficile, recurrent onset 10/2021 Hyperlipidemia Benign prostatic hyperplasia with lower urinary tract symptoms Hx: UTI (urinary tract infection) complicated uti noted on faxed info. PVD (peripheral vascular disease) did not observe on faxed info. History of COVID-19 07/2022 Anemia hx macrocytic anemia Unspecified intellectual disabilities [facility] Suprapubic catheter Heart disease Per long-term records Patient's sister (HIPAA contact) denies Surgical History History of carpal tunnel surgery of right wrist (11/2023) Presence of urogenital implants S/P cystoscopy cystolithopaxy w/ replacement suprapubic cath History of colonoscopy History of esophagogastroduodenoscopy (EGD) Presence of cardiac and vascular implant and graft Noted in long-term records with the associated date 2015, patient was with [facility] PCP at that time- no evidence of cardiac or vascular implant/graft noted at that time- no further details per available long-term records Patient's sister (Maribeth, HIPAA contact) denies Family History Mother Peripheral vascular disease Other Cancer Diabetes Heart disease Hypertension Denies family history of Ovarian cancer Prostate cancer Myocardial infarction Breast cancer Colorectal cancer Social History Smoking Status: Former smoker Tobacco Type: Cigarettes Second Hand Exposure: No; Do You Dip or Chew Tobacco: No; Hx Alcohol Use: No Hx Substance Use: No Preferred Language: Georgian Communication Ability: Effective Visual Impairment: No Limitations Hearing Ability: Hard of Hearing 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: No Beliefs That Will Affect Care: None marital status: Single Current Living Situation: [facility]-Term [facility] Care Facility Current Living Situation Comment: [facility] current occupational status: disabled Feels Safe at Home: Yes Diet: regular caffeine: Yes during the past year weight has: remained stable Dental Care, Regularly: No Physical Activity Frequency: Does not Exercise Seatbelt Use: never Assistive Devices: Wheelchair Review of Systems Respiratory: no dyspnea Cardiovascular: no chest pain Gastrointestinal: + nausea and + vomiting; no abdominal pa in Physical Exam Physical Exam: awake, resting in bed in no distress Respiratory: normal respiratory effort Gastrointestinal (Abdomen): Percussion/Palpation: abdomen soft; abdomen nontender + colostomy present with liquid brown st ool and gas in the bag. NGT in place draining dark brown contents Results & Data Vital Signs (Past 12 Hours) Vital Signs Temp Pulse Pulse Resp BP BP BP 01/07/25 12:43 97.7 F 101 H 20 186/110 H 156/90 H 01/07/25 12:00 01/07/25 10:45 98 H 116/79 01/07/25 10:30 101 H 150/92 H 01/07/25 08:00 01/07/25 07:56 97.3 F L 103 H 20 155/94 H 01/07/25 04:10 101 H 01/07/25 03:59 98 H 01/07/25 03:25 97.3 F L 99 H 18 134/87 Pulse Ox O2 Del Method 01/07/25 12:43 96 Room Air 01/07/25 12:00 Room Air 01/07/25 10:45 01/07/25 10:30 01/07/25 08:00 Room Air 01/07/25 07:56 95 Room Air 01/07/25 04:10 01/07/25 03:59 01/07/25 03:25 96 Room Air Diagnostic Findings KUB HISTORY: eval for SBO COMPARISON STUDY: 01/06/2025 FINDINGS: There is prominent gaseous distention of the stomach. There is small bowel distention measuring up to 6 cm diameter. No significant colonic distention seen. No gross free air. Low pelvic catheter is stable. IMPRESSION: Stable prominent gaseous distention of the stomach and the small bowel consistent with small bowel obstruction. ACT 112: Negative or not required by law. The above report was generated using voice recognition software. It may contain grammatical, syntax or spelling errors. Electronically signed by: Kvng Bhatt M.D. 01/07/2025 8:37 AM PG Care Time/CCT Total # of Minutes Spent Total Time Spent with Patient: Total time spent is greater than 50% in coordination of care (as documented) at patient's floor/unit and/or counseling patient: Coding Level of Care Code 70419 INT INP/OBS CARE 1/40MIN Diagnoses Small bowel obstruction due to adhesions K56.50
--- NOTE | 2025-01-07 15:04 | XRay Report ---
KUB HISTORY: Eval for resolution of SBO. COMPARISON STUDY: 01/07/2025 FINDINGS: Stable low pelvic catheter. Nasogastric tube tip is in the proximal stomach. There is mild gaseous distention of the stomach, improved. There is small bowel distention measuring up to 6 cm gale meter, stable. There is gaseous distention of the transverse colon measuring up to 12 cm diameter, in creased. Stable left lower quadrant ostomy. IMPRESSION: 1. Mild gaseous distention of the stomach, improved. 2. Stable small bowel distention measuring up to 6 cm diameter. 3. Increased distention of the transverse colon. ACT 112: Negative or not required by law. The above report was generated using voice recognition software. It may contain grammatical, syntax o r spelling errors. Electronically signed by: Kvng Bhatt M.D. 01/07/2025 3:03 PM
--- NOTE | 2025-01-07 15:11 | Pharmacy Report ---
Pharmacy Glycemic Short Note 2 - Date of Service January 07, 2025 - Glycemic Short BSG Results (Last 24 hours): 01/06/25 01/06/25 01/07/25 16:35 20:20 00:06 Glucose POC Glucose 143 H 241 H 182 H 01/07/25 01/07/25 01/07/25 06:08 07:21 09:01 Glucose 209 H POC Glucose 178 H 175 H 01/07/25 11:05 Glucose POC Glucose 241 H OUTPATIENT ANTIDIABETIC REGIMEN: * Lantus 70 units SQ HS * NovoLog SS * Ozempic 2mg SQ QWK * HbA1c 8.9% (10/14/24) ASSESSMENT: 01/07: * Patient received total of 30 units of insulin yesterday of which 15 units were basal * Fasting BSG 175 mg/dL - still NPO this AM, reasonable to have scale again for basal at HS * Lunch BSG trending up will tighten CF 01/05: * Arden received 21 units of insulin yesterday (10 were basal) * Fasting BSG this AM elevated, clarifying the need for continuing dextrose fluids with diet advancement. Also planning to increase basal scale at bedtime with diet advancement * No changes to NovoLog at this time. 01/04: * BSGs over the past 24 hours were [phone] mg/dL. Fasting this morning was 168 mg/dL. * Patient received 5 units of insulin yesterday (all bolus). Given uptrend in fasting BSG, will give a one time dose of lantus this morning and resume scale with minor parameter adjustments. Will continue current novolog scale * Patient remains NPO but on D5 1/2NS @125mL/hr 01/02: * Arden is a 69 year old male admitted with a partial small bowel obstruction and a history of type 2 diabetes mellitus. Pharmacy has been consulted to assist with glycemic management while inpatient. He is currently NPO. * Pharmacy was consulted for glycemic management during Arden's small bowel obstruction last year. He required significantly less basal insulin while NPO. Will initiate a basal scale based on BSGs at this time only if BSGs become elevated. * NovoLog at a weight based stress of 2. PLAN FOR INPATIENT GLYCEMIC CONTROL: * Hold outpatient oral diabetes medications * Basal insulin * Lantus 10-20 units SQ HS (see eMAR for additional details) * Bolus insulin * NovoLog per scale ACHS or Q6hrs while NPO * Goal Range: Low 110 mg/dL - High 140 mg/dL * Correction Factor: 20 mg/dL/unit * Nutritional / Prandial insulin per carb ratio of 1 unit per 8 grams CHO consumed
--- NOTE | 2025-01-07 19:55 | Hospitalist Progress Note ---
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 Patient was subsequently diagnosed with an acute partial small bowel obstruction (as noted on 01/01/2025, 12:46pm CT abd/pelvis with IV contrast). The following medical issues were addressed while the patient remained in [facility] from 01/01/2025 through 01/06/2025: #Small bowel obstruction - with transition point likely related to adhesions, located next to Deonte pouch Treated conservatively with NG tube,IV fluids, IV antiemetics SBO seems to have resolved, NG tube removed on 01/04 Surgery consult appreciated; signed off on 01/05 Advance to full liquid diet on 01/05 and tolerating well Advanced to solid diet on the evening of 01/05 with no complaints of nausea/vomiting/abdominal pain, and eating/drinking solid diet well on 01/06/2025. Patient was subsequently discharged back to [facility] on 01/06/2025. Other secondary medical issues included: #Diabetes mellitus type 2 - His usual glargine is 70 units at bedtime also with as needed aspart and 2 mg of semaglutide weekly, last dose 12/31 IV fluids with D5 discontinued on 01/05 due to diet advancement BSG ACHS BG well controlled while in the hospital Pharmacy glycemic consult appreciated # Hypertension, sinus tachycardia He is usually on 120 mg of long-acting propranolol daily He continues to have uncontrolled hypertension and persistent sinus tachycardia a lot of the time He was treated with IV metoprolol scheduled while on NG tube Resume usual propranolol 120 mg long-acting daily, assess response # Acute toxic metabolic encephalopathy - resolved Related to acute illness and also IM Phenergan given at his nursing facility Resolved, now at baseline #Hyperlipidemia Restart atorvastatin #Neurogenic bladder with suprapubic catheter Urine is currently clear Not very suspicious of a UTI. Urine culture was sent and has E. coli and enterococcus but this reflects colonization. Monitor for s/sx of UTI Continue SP catheter flushes 60 mL every shift and as needed - tends to get blocked catheter pretty easily #Abdominal postoperative wounddoes not appear infected Continue daily dressing changes, with loose iodoform packing covering with gauze #Right ischial decubitus ulcer continue wound care with foam dressing, consulted wound ostomy nurse Avinash boots #DVT ppx - enoxaparin, SCDs Disposition: Continued stay on MedSurg with NPO and NGT and no surgical intervention as per General Surgery Service of Dr. Kvng Deleon on 01/07/2025; plan is to return to [facility], where patient lives once his recurrent SBO resolves. Admission and Anticipated Discharge Date Admission Date: January 01, 2025 Subjective "I vomited twice today, but I feel fine. No more vomit. No belly pain. No diarrhea." Review of Systems Constitutional: Positive for 2 episodes of brown-colored emesis, non-bilious, no hematemesis, on 01/07/2025. Negative for antecedent/coincident fevers, chills, diaphoresis, cough, wheeze, sore throat, hemoptysis, chest pains, palpitations, pleurisy, diarrhea, abdominal pain, pelvic pain, hematemesis, hematochezia, melena, hematuria, dysuria, frequency, urgency, headaches, dizziness, lightheadedness, visual changes, hearing changes, weakness, falls, syncope, trauma, travel history, sick contacts, or food/drug ingestions novel or new. All other review of systems are reported as negative by the patient on 01/07/2025. Physical Exam Constitutional: General appearance: Comfortable, coherent, cooperative. Wide awake and alert. Not confused, lethargic, or obtunded. Speaks in complete, fluent, and articulate sentences without pause, interruption, cough, or wheeze. HEENT: NC/AT. EOMI. PERRL No rhinorrhea. No pharyngeal discharge. Neck: Supple, no stridor, bruit, goiter, JVD, or HJR. Lymph: No lymphadenopathy. Chest: Symmetric rise and fall with respirations. Non-tender to palpation. Lungs: Clear to auscultation and percussion. No audible wheeze, pectoriloquy, increase in tactile fremitus, or flatness/dullness to percussion at the bases. Heart: RRR, S1S2, no S3 or S4. Grade II/ early systolic murmur @ LLSB without radiation to the carotids, axilla, or back, and which remains invariant in regards to the respiratory cycle. Abd: Soft, non-tender, non-distended. No rebound, guarding, Lakhani's sign, or organomegaly. Bowel sounds auscultated in all 4 quadrants. Ext: No clubbing, cyanosis, or edema. 2+ pedal pulses bilaterally. Skin: No decubitus ulcer, exanthem, or enanthem. Neuro: Alert and oriented in regards to person, place, time, or situation. 5/5 motor strength in all 4 extremities, both proximally and distally. Psych: No suicidal ideation. No homicidal ideation. Results & Data Results & Data Vital Signs (Past 12 Hours) Vital Signs Temp Pulse Pulse Resp BP BP BP 01/07/25 19:46 36.6 C 102 H 20 133/84 01/07/25 15:32 36.6 C 100 H 21 143/80 H 01/07/25 12:43 36.5 C 101 H 20 186/110 H 156/90 H 01/07/25 12:00 01/07/25 10:45 98 H 116/79 01/07/25 10:30 101 H 150/92 H 01/07/25 08:00 01/07/25 07:56 36.3 C L 103 H 20 155/94 H Pulse Ox O2 Del Method 01/07/25 19:46 97 Room Air 01/07/25 15:32 92 Room Air 01/07/25 12:43 96 Room Air 01/07/25 12:00 Room Air 01/07/25 10:45 01/07/25 10:30 01/07/25 08:00 Room Air 01/07/25 07:56 95 Room Air Laboratory Results Abnormal lab results 01/06/25 01/07/25 01/07/25 Range/Units 20:20 00:06 06:08 WBC (4.8-10.8) K/ul RBC (4.70-6.10) M/uL Hct (42.0-52.0) % RDW Std Deviation (36.4-46.3) fL RDW Coeff of Renée (11.5-14.5) % MPV (9.4-12.4) fL Neut # (Auto) (1.40-6.50) K/uL Leake # (Auto) (0.11-0.59) K/uL Sodium (136-145) mmol/L BUN (6-23) mg/dl BUN/Creatinine Ratio (10-20) Glucose (70-99(Fasting)) mg/dl POC Glucose 241 H 182 H 178 H (70-99) mg/dl 01/07/25 01/07/25 01/07/25 Range/Units 07:21 09:01 11:05 WBC 15.36 H (4.8-10.8) K/ul RBC 4.61 L (4.70-6.10) M/uL Hct 40.7 L (42.0-52.0) % RDW Std Deviation 47.7 H (36.4-46.3) fL RDW Coeff of Renée 15.2 H (11.5-14.5) % MPV 8.9 L (9.4-12.4) fL Neut # (Auto) 13.01 H (1.40-6.50) K/uL Leake # (Auto) 0.82 H (0.11-0.59) K/uL Sodium 135 L (136-145) mmol/L BUN 26 H (6-23) mg/dl BUN/Creatinine Ratio 29.9 H (10-20) Glucose 209 H (70-99(Fasting)) mg/dl POC Glucose 175 H 241 H (70-99) mg/dl 01/07/25 Range/Units 18:09 WBC (4.8-10.8) K/ul RBC (4.70-6.10) M/uL Hct (42.0-52.0) % RDW Std Deviation (36.4-46.3) fL RDW Coeff of Renée (11.5-14.5) % MPV (9.4-12.4) fL Neut # (Auto) (1.40-6.50) K/uL Leake # (Auto) (0.11-0.59) K/uL Sodium (136-145) mmol/L BUN (6-23) mg/dl BUN/Creatinine Ratio (10-20) Glucose (70-99(Fasting)) mg/dl POC Glucose 132 H (70-99) mg/dl Diagnostic Findings KUB (01/07/2025, 1:50pm): 1. Mild gaseous distention of the stomach, improved. 2. Stable small bowel distention measuring up to 6 cm diameter. 3. Increased distention of the transverse colon. PG Care Time/CCT Total # of Minutes Spent Total Time Spent with Patient: Total time spent is greater than 50% in coordination of care (as documented) at patient's floor/unit and/or counseling patient: Coding Level of Care Code 72763 SUB INP/OBS CARE 2/35MIN Diagnoses Small bowel obstruction due to adhesions K56.50 Diabetes mellitus, type 2 E11.9 Paraplegia G82.20
--- NOTE | 2025-01-08 09:14 | Hospitalist Progress Note ---
Date of Service January 08, 2025 Assessment & Plan (1) Small bowel obstruction due to adhesions: Plan: -con't NGT -IVF -antiemetics -surgery following -conservative management (2) Diabetes mellitus, type 2: Plan: Pharmacy glycemic consult (3) Hypertension: Plan: -metoprolol IV Plan 69 years old male with PMH of DNR/DNI @ [facility], functional quadriplegia with cerebral palsy and spina bifida leading to chronic bilateral paraplegia, intellectual disability, and recent colostomy for chronic volvulus/Man syndrome in October at [facility], who was admitted to the inpatient hospitalist service @ [facility] on 01/01/2025 with complaints of nausea and vomiting. Patient was subsequently diagnosed with an acute partial small bowel obstruction (as noted on 01/01/2025, 12:46pm CT abd/pelvis with IV contrast). Disposition: Continued stay on MedSurg with NPO and NGT and no surgical intervention as per General Surgery Service of Dr. Kvng Deleon on 01/07/2025; plan is to return to [facility], where patient lives once his recurrent SBO resolves. Admission and Anticipated Discharge Date Admission Date: January 01, 2025 Subjective No events overnight. Pt resting with NGT in place. Review of Systems Review of Systems: CONST: Negative for fever, body aches and chills. HENT: Negative for neck pain/stiffness, headache, congestion, sore throat, swelling. EYES: Negative for discharge/pain or vision changes. RESP: Negative for cough/hemoptysis and shortness of breath. CV: Negative chest pain, difficulty breathing, palpitations. ABD: Negative pain, nausea, vomiting. : Negative increase frequency, dysuria, blood in urine or stool. MUSC: Negative for muscle aches, edema. SKIN: Negative rash, lesions/sores. NEURO: Negative headache, dizziness, weakness. Physical Exam Physical Exam: GENERAL APPEARANCE NAD, activity normal for age, well developed/ well nourished, no cyanosis, pallor, or diaphoresis. EYES lids/conjunctiva normal. EARS/NOSE/THROAT Mucous membranes moist, nares normal, lips/teeth normal uvula midline without oral pharyngeal erythema, exudate or swelling TMs normal bilaterally. No lymphangitis/lymphedema. HEAD/NECK NGT in place RESPIRATORY respiratory effort normal, speaks in full sentences, no tripod position, no accessory muscle use. Lungs clear to auscultation without rhonchi, wheezes, rales CARDIAC Regular rate and rhythm, no edema. ABDOMINAL Soft, ND/NT. No evidence of fluid wave. No pulsatile masses on exam, rebound tenderness, [place] sign or pain over Mcburney's point. MUSCLES/EXTREMITIES No abnormal range of motion, no swelling. SKIN Warm, pink and dry. No rashes, dermatoses, petechiae or lesions. NEUROLOGICAL Speech is clear and appropriate. Normal level of consciousness. Gait and coordination are normal. 5/5 strength in all extremities. PSYCH Normal mood and affect. Judgement/competence is appropriate Results & Data Results & Data Vital Signs (Past 12 Hours) Vital Signs Temp Pulse Pulse Resp BP BP Pulse Ox 01/08/25 07:53 36.4 C L 97 H 18 138/84 98 01/08/25 03:51 101 H 01/08/25 03:36 99 H 154/82 H 01/08/25 03:35 36.6 C 102 H 22 136/85 97 01/07/25 23:13 36.6 C 99 H 21 154/82 H 98 01/07/25 21:45 99 H O2 Del Method 01/08/25 07:53 Room Air 01/08/25 03:51 01/08/25 03:36 01/08/25 03:35 Room Air 01/07/25 23:13 Room Air 01/07/25 21:45 PG Care Time/CCT Total # of Minutes Spent Total Time Spent with Patient: Total time spent is greater than 50% in coordination of care (as documented) at patient's floor/unit and/or counseling patient: Coding Level of Care Code 58414 SUB INP/OBS CARE 2/35MIN Diagnoses Small bowel obstruction due to adhesions K56.50 Diabetes mellitus, type 2 E11.9 Hypertension I10
--- NOTE | 2025-01-08 12:16 | Surgery Progress Note ---
Date of Service January 08, 2025 Assessment & Plan (1) 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: Plan: Suspect this is his neurogenic bowel, there is some air in the bag. Less likely bowel obstruction. Continue nonoperative management Continue to trend KUBs, if improving consider clamping NG tube No surgical intervention indicated at this time Surgical follow, call with questions or concerns Admission and Anticipated Discharge Date Admission Date: January 01, 2025 Subjective History of neurogenic bowel on multiple prior admissions, status post Saba's procedure at outside facility, now with neurogenic bowel versus bowel obstruction. He continues to deny pain. States the ostomy was recently changed. Physical Exam Constitutional: WD/WN, vitals as above + overweight Gastrointestinal (Abdomen): normal bowel sounds, soft, nontender, no hepatosplenomegaly Inspection/Auscultation: + abdominal surgical scar Ostomy with gas in bag, minimal sweat Results & Data Vital Signs (Past 12 Hours) Vital Signs Temp Pulse Pulse Resp BP BP Pulse Ox 01/08/25 12:07 101 H 154/82 H 01/08/25 11:39 37.0 C 101 H 18 161/84 H 96 01/08/25 10:26 01/08/25 07:53 36.4 C L 97 H 18 138/84 98 01/08/25 03:51 101 H 01/08/25 03:36 99 H 154/82 H 01/08/25 03:35 36.6 C 102 H 22 136/85 97 O2 Del Method 01/08/25 12:07 01/08/25 11:39 Room Air 01/08/25 10:26 Room Air 01/08/25 07:53 Room Air 01/08/25 03:51 01/08/25 03:36 01/08/25 03:35 Room Air Laboratory Results Laboratory Results - last 24 hr 01/07/25 01/07/25 01/08/25 18:09 20:14 00:12 POC Glucose 132 H 166 H 135 H 01/08/25 01/08/25 06:06 11:41 POC Glucose 133 H 109 H PG Care Time/CCT Total # of Minutes Spent Total Time Spent with Patient: Total time spent is greater than 50% in coordination of care (as documented) at patient's floor/unit and/or counseling patient: Coding Level of Care Code 55965 SUB INP/OBS CARE 2/35MIN Diagnoses 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 K56.0
--- NOTE | 2025-01-08 14:21 | XRay Report ---
Abdominal radiograph, one view History: Abdominal pain Comparison: 01/06/2025 Findings: Single AP view of the abdomen performed. The bowel gas pattern appears nonobstructive. Moderately gas distended small and large bowel loops are seen, which appears similar from 01/06/2025. NG/OG tube sidehole is in the stomach. Mild to moderate gastric gaseous distention. No pneumatosis or portal venous gas. No abnormal calcifications project over the abdomen. A catheter overlies the bladder. No acute abnormality of the bony structures. Impression: NG/OG tube sidehole in the stomach Electronically signed by Mitchel Dominique 01-08-2025 2:20 PM
[2025-01-09 06:49] LABS: Hematocrit (blood only) 33.2 % (42.0-52.0); Hemoglobin 11.5 g/dl (14.0-18.0); Mean Corpuscular Hemoglobin 31.4 pg (25.0-34.0); Mean Corpuscular Volume 90.7 fL (80.0-100.0); Platelet Count 211 K/uL (130-400); RDW Standard Deviation 49.4 fL (36.4-46.3); Red Blood Count 3.66 M/uL (4.70-6.10); White Blood Count 7.12 K/ul (4.8-10.8)
[2025-01-09 07:02] LABS: Anion Gap 11.0 (3-11); Blood Urea Nitrogen 18.0 mg/dl (6-23); Calcium 8.5 mg/dl (8.6-10.3); Carbon Dioxide 25.0 mmol/L (21-32); Chloride 106.0 mmol/L (98-107); Creatinine Clr Calc Pharmacy 105.4 ml/min; Glucose 97.0 mg/dl (70-99(Fasting)); Potassium 3.6 mmol/L (3.5-5.1); Sodium 142.0 mmol/L (136-145)
--- NOTE | 2025-01-09 08:30 | Hospitalist Progress Note ---
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 Patient was subsequently diagnosed with an acute partial small bowel obstruction (as noted on 01/01/2025, 12:46pm CT abd/pelvis with IV contrast). Disposition: Continued stay on MedSurg with NPO and NGT and no surgical intervention as per General Surgery Service of Dr. Kvng Deleon on 01/07/2025; plan is to return to [facility], where patient lives once his recurrent SBO resolves. Admission and Anticipated Discharge Date Admission Date: January 01, 2025 Subjective No events overnight. Pt resting comfortably in bed. Review of Systems Review of Systems: CONST: Negative for fever, body aches and chills. HENT: Negative for neck pain/stiffness, headache, congestion, sore throat, swelling. EYES: Negative for discharge/pain or vision changes. RESP: Negative for cough/hemoptysis and shortness of breath. CV: Negative chest pain, difficulty breathing, palpitations. ABD: Negative pain, nausea, vomiting. : Negative increase frequency, dysuria, blood in urine or stool. MUSC: Negative for muscle aches, edema. SKIN: Negative rash, lesions/sores. NEURO: Negative headache, dizziness, weakness. Constitutional: Positive for 2 episodes of brown-colored emesis, non-bilious, no hematemesis, on 01/07/2025. Negative for antecedent/coincident fevers, chills, diaphoresis, cough, wheeze, sore throat, hemoptysis, chest pains, palpitations, pleurisy, diarrhea, abdominal pain, pelvic pain, hematemesis, hematochezia, melena, hematuria, dysuria, frequency, urgency, headaches, dizziness, lightheadedness, visual changes, hearing changes, weakness, falls, syncope, trauma, travel history, sick contacts, or food/drug ingestions novel or new. All other review of systems are reported as negative by the patient on 01/07/2025. Physical Exam Physical Exam: GENERAL APPEARANCE NAD, activity normal for age, well developed/ well nourished, no cyanosis, pallor, or diaphoresis. EYES lids/conjunctiva normal. EARS/NOSE/THROAT Mucous membranes moist, nares normal, lips/teeth normal uvula midline without oral pharyngeal erythema, exudate or swelling TMs normal bilaterally. No lymphangitis/lymphedema. HEAD/NECK NGT in place RESPIRATORY respiratory effort normal, speaks in full sentences, no tripod position, no accessory muscle use. Lungs clear to auscultation without rhonchi, wheezes, rales CARDIAC Regular rate and rhythm, no edema. ABDOMINAL Soft, ND/NT. No evidence of fluid wave. No pulsatile masses on exam, rebound tenderness, Lakhani sign or pain over Mcburney's point. MUSCLES/EXTREMITIES No abnormal range of motion, no swelling. SKIN Warm, pink and dry. No rashes, dermatoses, petechiae or lesions. NEUROLOGICAL Speech is clear and appropriate. Normal level of consciousness. Gait and coordination are normal. 5/5 strength in all extremities. PSYCH Normal mood and affect. Judgement/competence is appropriate Results & Data Results & Data Vital Signs (Past 12 Hours) Vital Signs Temp Pulse Pulse Resp BP BP Pulse Ox 01/09/25 07:42 36.5 C 95 H 18 166/90 H 94 01/09/25 06:57 98 H 01/09/25 05:00 01/09/25 03:46 89 152/77 H 01/09/25 03:16 105 H 168/80 H 01/08/25 22:53 36.6 C 95 H 20 144/82 H 96 01/08/25 22:00 100 H Pulse Ox O2 Del Method O2 Del Method 01/09/25 07:42 Room Air 01/09/25 06:57 01/09/25 05:00 94 Room Air 01/09/25 03:46 01/09/25 03:16 01/08/25 22:53 Room Air 01/08/25 22:00 PG Care Time/CCT Total # of Minutes Spent Total Time Spent with Patient: Total time spent is greater than 50% in coordination of care (as documented) at patient's floor/unit and/or counseling patient: Coding Level of Care Code 12491 SUB INP/OBS CARE 2/35MIN Diagnoses Small bowel obstruction due to adhesions K56.50 Diabetes mellitus, type 2 E11.9 Hypertension I10
--- NOTE | 2025-01-09 10:51 | Surgery Progress Note ---
Date of Service January 09, 2025 Assessment & Plan (1) 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: Plan: Suspect this is his neurogenic bowel, there is some air in the bag. Less likely bowel obstruction. Continue nonoperative management Continue to trend KUBs Will start irrigation through the ostomy to promote bowel function No surgical intervention indicated at this time Surgical follow, call with questions or concerns Admission and Anticipated Discharge Date Admission Date: January 01, 2025 Subjective History of neurogenic bowel on multiple prior admissions, status post Saba's procedure at outside facility, now with neurogenic bowel versus bowel obstruction. He continues to deny pain. Physical Exam Constitutional: WD/WN, vitals as above + overweight Gastrointestinal (Abdomen): normal bowel sounds, soft, nontender, no hepatosplenomegaly Inspection/Auscultation: + abdominal surgical scar Results & Data Vital Signs (Past 12 Hours) Vital Signs Temp Pulse Pulse Resp BP BP Pulse Ox 01/09/25 09:34 01/09/25 07:42 36.5 C 95 H 18 166/90 H 94 01/09/25 06:57 98 H 01/09/25 05:00 01/09/25 03:46 89 152/77 H 01/09/25 03:16 105 H 168/80 H 01/08/25 22:53 36.6 C 95 H 20 144/82 H 96 Pulse Ox O2 Del Method O2 Del Method 01/09/25 09:34 Room Air 01/09/25 07:42 Room Air 01/09/25 06:57 01/09/25 05:00 94 Room Air 01/09/25 03:46 01/09/25 03:16 01/08/25 22:53 Room Air Laboratory Results Laboratory Results - last 24 hr 01/08/25 01/08/25 01/08/25 11:41 18:26 19:56 WBC RBC Hgb Hct MCV MCH MCHC RDW Std Deviation RDW Coeff of Renée Plt Count MPV Sodium Potassium Chloride Carbon Dioxide Anion Gap BUN Creatinine Est Cr Clr Drug Dosing eGFR BUN/Creatinine Ratio Glucose POC Glucose 109 H 103 H 97 Calcium 01/08/25 01/09/25 01/09/25 20:07 00:42 05:38 WBC 7.12 RBC 3.66 L Hgb 11.5 L D Hct 33.2 L MCV 90.7 MCH 31.4 MCHC 34.6 RDW Std Deviation 49.4 H RDW Coeff of Renée 14.8 H Plt Count 211 MPV 9.0 L Sodium 142 Potassium 3.6 Chloride 106 Carbon Dioxide 25 Anion Gap 11 BUN 18 Creatinine 0.65 Est Cr Clr Drug Dosing 105.4 eGFR 100.74 BUN/Creatinine Ratio 27.7 H Glucose 97 POC Glucose 118 H 86 Calcium 8.5 L 01/09/25 05:45 WBC RBC Hgb Hct MCV MCH MCHC RDW Std Deviation RDW Coeff of Renée Plt Count MPV Sodium Potassium Chloride Carbon Dioxide Anion Gap BUN Creatinine Est Cr Clr Drug Dosing eGFR BUN/Creatinine Ratio Glucose POC Glucose 100 H Calcium Diagnostic Findings KUB not read yet, peers to show persistent distended bowel and colon. Do not see obstruction PG Care Time/CCT Total # of Minutes Spent Total Time Spent with Patient: Total time spent is greater than 50% in coordination of care (as documented) at patient's floor/unit and/or counseling patient: Coding Level of Care Code 25942 SUB INP/OBS CARE 2/35MIN Diagnoses 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 K56.0
--- NOTE | 2025-01-09 11:53 | XRay Report ---
KUB CLINICAL HISTORY: Small bowel obstruction. Enteric tube. FINDINGS: 3 AP, portable, supine abdominal radiographs are compared to study dated 01/08/2025 and corre lated with abdominal CT dated 01/01/2025. An enteric tube is unchanged in position. The tip projects b elow the diaphragm over the gastric fundus. There is evidence of persistent small bowel obstruction. Small bowel loops measure up to 4 cm diameter. No evidence of intraperitoneal free air is seen on the se supine images. An ostomy projects over the left lower quadrant. A suprapubic bladder catheter is i n place. There are no abnormal abdominal calcifications. There are prostatic calcifications in the pe lvis. The skeletal structures are osteopenic and appear intact. There is lumbosacral spondylosis. Art hritic change is noted in hips. IMPRESSION: 1. An enteric tube is in place as above. 2. Persistent small bowel obstruction. This is similar in appearance to yesterday. Electronically signed by: Dick Castro M.D. 01/09/2025 11:51 AM
--- NOTE | 2025-01-09 13:58 | Pharmacy Report ---
Pharmacy Glycemic Short Note 2 - Date of Service January 09, 2025 - Glycemic Short BSG Results (Last 24 hours): 01/08/25 01/08/25 01/08/25 18:26 19:56 20:07 Glucose POC Glucose 103 H 97 118 H 01/09/25 01/09/25 01/09/25 00:42 05:38 05:45 Glucose 97 POC Glucose 86 100 H 01/09/25 12:36 Glucose POC Glucose 94 OUTPATIENT ANTIDIABETIC REGIMEN: * Lantus 70 units SQ HS * NovoLog SS * Ozempic 2mg SQ QWK * HbA1c 8.9% (10/14/24) ASSESSMENT: 01/09 * Insulin needs continue to trend down. Patient received Lantus 10 units HS yesterday, no bolus insulin. Majority of BSGs below goal. Remains NPO. * Decrease Lantus dose further and add hold parameter. 01/07: * Patient received total of 30 units of insulin yesterday of which 15 units were basal * Fasting BSG 175 mg/dL - still NPO this AM, reasonable to have scale again for basal at HS * Lunch BSG trending up will tighten CF 01/05: * Arden received 21 units of insulin yesterday (10 were basal) * Fasting BSG this AM elevated, clarifying the need for continuing dextrose fluids with diet advancement. Also planning to increase basal scale at bedtime with diet advancement * No changes to NovoLog at this time. 01/04: * BSGs over the past 24 hours were [phone] mg/dL. Fasting this morning was 168 mg/dL. * Patient received 5 units of insulin yesterday (all bolus). Given uptrend in fasting BSG, will give a one time dose of lantus this morning and resume scale with minor parameter adjustments. Will continue current novolog scale * Patient remains NPO but on D5 1/2NS @125mL/hr 01/02: * Arden is a 69 year old male admitted with a partial small bowel obstruction and a history of type 2 diabetes mellitus. Pharmacy has been consulted to assist with glycemic management while inpatient. He is currently NPO. * Pharmacy was consulted for glycemic management during Arden's small bowel obstruction last year. He required significantly less basal insulin while NPO. Will initiate a basal scale based on BSGs at this time only if BSGs become elevated. * NovoLog at a weight based stress of 2. PLAN FOR INPATIENT GLYCEMIC CONTROL: * Basal insulin * Lantus 0-7 units SQ HS (see eMAR for additional details) * Bolus insulin * NovoLog per scale ACHS or Q6hrs while NPO * Goal Range: Low 110 mg/dL - High 140 mg/dL * Correction Factor: 30 mg/dL/unit * Nutritional / Prandial insulin per carb ratio of 1 unit per 10 grams CHO consumed
[2025-01-09] MEDS: SOD PHOSPHATE/SOD BIPHOSPHATE ENEMA 132 ML BTL PR ONE (19:07)
[2025-01-10 06:11] LABS: Hematocrit (blood only) 35.4 % (42.0-52.0); Hemoglobin 12.0 g/dl (14.0-18.0); Mean Corpuscular Hemoglobin 30.8 pg (25.0-34.0); Mean Corpuscular Volume 90.8 fL (80.0-100.0); Platelet Count 214 K/uL (130-400); RDW Standard Deviation 48.7 fL (36.4-46.3); Red Blood Count 3.90 M/uL (4.70-6.10); White Blood Count 7.75 K/ul (4.8-10.8)
[2025-01-10 06:36] LABS: Anion Gap 12.0 (3-11); Blood Urea Nitrogen 13.0 mg/dl (6-23); Calcium 8.7 mg/dl (8.6-10.3); Carbon Dioxide 21.0 mmol/L (21-32); Chloride 107.0 mmol/L (98-107); Creatinine Clr Calc Pharmacy 108.8 ml/min; Glucose 90.0 mg/dl (70-99(Fasting)); Potassium 3.3 mmol/L (3.5-5.1); Sodium 140.0 mmol/L (136-145)
--- NOTE | 2025-01-10 07:45 | XRay Report ---
EXAM: XR KUB/Abdomen 1 view CLINICAL HISTORY: SBO, NG tube in place TECHNIQUE: Radiograph of kub/abdomen was acquired. 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 No significant air fluid levels. No evidence of air under diaphragm. No obvious radio opacity overlying kidneys/ureters/urinary bladder. No obvious organomegaly. Bony shadows appear unremarkable. Nasogastric tube in situ with tip in fundus. Pelvic catheter noted, likely within the urinary bladder. IMPRESSION: 1. Dilated large and small bowel loops. No significant air fluid levels. Similar findings on previous radiograph. Correlation with CT abdomen is suggested. 2. Nasogastric tube in situ with tip in fundus of stomach. 3. Pelvic catheter noted, likely within the urinary bladder. Electronically signed by Dalton Childress 01-10-2025 07:44 AM
[2025-01-10] MEDS: POTASSIUM CHLORIDE / WTR 10 MEQ/100 ML PLCT IV SCH (08:36)
--- NOTE | 2025-01-10 09:48 | Hospitalist Progress Note ---
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 Patient was subsequently diagnosed with an acute partial small bowel obstruction (as noted on 01/01/2025, 12:46pm CT abd/pelvis with IV contrast). Disposition: Continued stay on MedSurg with NPO and NGT and no surgical intervention as per General Surgery Service of Dr. Kvng Deleon on 01/07/2025; plan is to return to [facility], where patient lives once his recurrent SBO resolves. Admission and Anticipated Discharge Date Admission Date: January 01, 2025 Review of Systems Review of Systems: CONST: Negative for fever, body aches and chills. HENT: Negative for neck pain/stiffness, headache, congestion, sore throat, swelling. EYES: Negative for discharge/pain or vision changes. RESP: Negative for cough/hemoptysis and shortness of breath. CV: Negative chest pain, difficulty breathing, palpitations. ABD: Negative pain, nausea, vomiting. : Negative increase frequency, dysuria, blood in urine or stool. MUSC: Negative for muscle aches, edema. SKIN: Negative rash, lesions/sores. NEURO: Negative headache, dizziness, weakness. Constitutional: Positive for 2 episodes of brown-colored emesis, non-bilious, no hematemesis, on 01/07/2025. Negative for antecedent/coincident fevers, chills, diaphoresis, cough, wheeze, sore throat, hemoptysis, chest pains, palpitations, pleurisy, diarrhea, abdominal pain, pelvic pain, hematemesis, hematochezia, melena, hematuria, dysuria, frequency, urgency, headaches, dizziness, lightheadedness, visual becerra es, hearing changes, weakness, falls, syncope, trauma, travel history, sick contacts, or food/drug ingestions novel or new. All other review of systems are reported as negative by the patient on 06/2024. Physical Exam Physical Exam: GENERAL APPEARANCE NAD, activity normal for age, well developed/ well nourished, no cyanosis, pallor, or diaphoresis. EYES lids/conjunctiva normal. EARS/NOSE/THROAT Mucous membranes moist, nares normal, lips/teeth normal uvula midline without oral pharyngeal erythema, exudate or swelling TMs normal bilaterally. No lymphangitis/lymphedema. HEAD/NECK NGT in place RESPIRATORY respiratory effort normal, speaks in full sentences, no tripod position, no accessory muscle use. Lungs clear to auscultation without rhonchi, wheezes, rales CARDIAC Regular rate and rhythm, no edema. ABDOMINAL Soft, ND/NT. No evidence of fluid wave. No pulsatile masses on exam, rebound tenderness, Lakhani sign or pain over Mcburney's point. MUSCLES/EXTREMITIES No abnormal range of motion, no swelling. SKIN Warm, pink and dry. No rashes, dermatoses, petechiae or lesions. NEUROLOGICAL Speech is clear and appropriate. Normal level of consciousness. Gait and coordination are normal. 5/5 strength in all extremities. PSYCH Normal mood and affect. Judgement/competence is appropriate Results & Data Results & Data Vital Signs (Past 12 Hours) Vital Signs Temp Pulse Pulse Resp BP BP Pulse Ox 01/10/25 07:40 36.6 C 96 H 18 170/83 H 95 01/10/25 03:33 95 H 01/10/25 03:18 102 H 01/10/25 03:07 36.5 C 100 H 18 150/77 H 95 01/09/25 23:27 36.4 C L 102 H 18 153/78 H 94 01/09/25 23:00 80 O2 Del Method 01/10/25 07:40 Room Air 01/10/25 03:33 01/10/25 03:18 01/10/25 03:07 Room Air 01/09/25 23:27 Room Air 01/09/25 23:00 PG Care Time/CCT Total # of Minutes Spent Total Time Spent with Patient: Total time spent is greater than 50% in coordination of care (as documented) at patient's floor/unit and/or counseling patient: Coding Level of Care Code 76586 SUB INP/OBS CARE 235MIN Diagnoses Small bowel obstruction due to adhesions K56.50 Diabetes mellitus, type 2 E11.9 Hypertension I10
--- NOTE | 2025-01-10 10:02 | Pharmacy Report ---
Pharmacy Glycemic Short Note 2 - Date of Service January 10, 2025 - Glycemic Short BSG Results (Last 24 hours): 01/09/25 01/09/25 01/09/25 12:36 17:56 23:53 Glucose POC Glucose 94 90 84 01/10/25 01/10/25 05:45 06:33 Glucose 90 POC Glucose 91 OUTPATIENT ANTIDIABETIC REGIMEN: * Lantus 70 units SQ HS * NovoLog SS * Ozempic 2mg SQ QWK * HbA1c 8.9% (10/14/24) ASSESSMENT: 01/10: * Arden received zero units of insulin yesterday, continues with NPO status. * Fasting BSG this AM slightly below goal, but not hypoglycemic. Will continue current basal scale if BSGs trend upward or diet advanced. * No changes to NovoLog at this time. 01/09 * Insulin needs continue to trend down. Patient received Lantus 10 units HS yesterday, no bolus insulin. Majority of BSGs below goal. Remains NPO. * Decrease Lantus dose further and add hold parameter. 01/07: * Patient received total of 30 units of insulin yesterday of which 15 units were basal * Fasting BSG 175 mg/dL - still NPO this AM, reasonable to have scale again for basal at HS * Lunch BSG trending up will tighten CF 01/05: * Arden received 21 units of insulin yesterday (10 were basal) * Fasting BSG this AM elevated, clarifying the need for continuing dextrose fluids with diet advancement. Also planning to increase basal scale at bedtime with diet advancement * No changes to NovoLog at this time. 01/04: * BSGs over the past 24 hours were [phone] mg/dL. Fasting this morning was 168 mg/dL. * Patient received 5 units of insulin yesterday (all bolus). Given uptrend in fasting BSG, will give a one time dose of lantus this morning and resume scale with minor parameter adjustments. Will continue current novolog scale * Patient remains NPO but on D5 1/2NS @125mL/hr 01/02: * Arden is a 69 year old male admitted with a partial small bowel obstruction and a history of type 2 diabetes mellitus. Pharmacy has been consulted to assist with glycemic management while inpatient. He is currently NPO. * Pharmacy was consulted for glycemic management during Arden's small bowel obstruction last year. He required significantly less basal insulin while NPO. Will initiate a basal scale based on BSGs at this time only if BSGs become elevated. * NovoLog at a weight based stress of 2. PLAN FOR INPATIENT GLYCEMIC CONTROL: * Basal insulin * Lantus 0-7 units SQ HS (see eMAR for additional details) * Bolus insulin * NovoLog per scale ACHS or Q6hrs while NPO * Goal Range: Low 110 mg/dL - High 140 mg/dL * Correction Factor: 30 mg/dL/unit * Nutritional / Prandial insulin per carb ratio of 1 unit per 10 grams CHO consumed
--- NOTE | 2025-01-10 11:12 | Surgery Progress Note ---
Date of Service January 10, 2025 Assessment & Plan (1) 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: Plan: Suspect this is his neurogenic bowel, there is some air in the bag. Less likely bowel obstruction. Continue nonoperative management Continue to trend KUBs irrigation through the ostomy to promote bowel function No surgical intervention indicated at this time May need contrasted study if no improvement in next day or 2 By [place] covering Surgical follow, call with questions or concerns Admission and Anticipated Discharge Date Admission Date: January 01, 2025 Subjective History of neurogenic bowel on multiple prior admissions, status post Saba's procedure at outside facility, now with neurogenic bowel versus bowel obstru ction. He continues to deny pain. Physical Exam Constitutional: WD/WN, vitals as above + overweight Gastrointestinal (Abdomen): normal bowel sounds, soft, nontender, no hepatosplenomegaly Inspection/Auscultation: + abdominal surgical scar Ostomy with liquid in bag, appears healthy, digitized. Results & Data Vital Signs (Past 12 Hours) Vital Signs Temp Pulse Pulse Resp BP BP Pulse Ox 01/10/25 11:04 36.5 C 96 H 18 166/84 H 97 01/10/25 07:40 36.6 C 96 H 18 170/83 H 95 01/10/25 03:33 95 H 01/10/25 03:18 102 H 01/10/25 03:07 36.5 C 100 H 18 150/77 H 95 01/09/25 23:27 36.4 C L 102 H 18 153/78 H 94 O2 Del Method 01/10/25 11:04 Room Air 01/10/25 07:40 Room Air 01/10/25 03:33 01/10/25 03:18 01/10/25 03:07 Room Air 01/09/25 23:27 Room Air Diagnostic Findings KUB personally reviewed and interpreted and agree with the assessment of persistent small and large bowel dilation, no evidence of obstruction, likely ileus/pseudoobstruction KUB X-Ray 01/10/25 07:00 EXAM: XR KUB/Abdomen 1 view CLINICAL HISTORY: SBO, NG tube in place TECHNIQUE: Radiograph of kub/abdomen was acquired. 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 No significant air fluid levels. No evidence of air under diaphragm. No obvious radio opacity overlying kidneys/ureters/urinary bladder. No obvious organomegaly. Bony shadows appear unremarkable. Nasogastric tube in situ with tip in fundus. Pelvic catheter noted, likely within the urinary bladder. IMPRESSION: 1. Dilated large and small bowel loops. No significant air fluid levels. Similar findings on previous radiograph. Correlation with CT abdomen is suggested. 2. Nasogastric tube in situ with tip in fundus of stomach. 3. Pelvic catheter noted, likely within the urinary bladder. Electronically signed by Dalton Childress 01-10-2025 07:44 AM PG Care Time/CCT Total # of Minutes Spent Total Time Spent with Patient: Total time spent is greater than 50% in coordination of care (as documented) at patient's floor/unit and/or counseling patient: Coding Level of Care Code 01652 SUB INP/OBS CARE 2/35MIN Diagnoses 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 K56.0
[2025-01-10] MEDS: SODIUM CHLORIDE 0.9% 1,000 ML IV SCH (12:21)
[2025-01-11 06:50] LABS: Hematocrit (blood only) 33.5 % (42.0-52.0); Hemoglobin 11.8 g/dl (14.0-18.0); Mean Corpuscular Hemoglobin 31.7 pg (25.0-34.0); Mean Corpuscular Volume 90.1 fL (80.0-100.0); Platelet Count 231 K/uL (130-400); RDW Standard Deviation 47.8 fL (36.4-46.3); Red Blood Count 3.72 M/uL (4.70-6.10); White Blood Count 7.42 K/ul (4.8-10.8)
[2025-01-11 07:23] LABS: Anion Gap 13.0 (3-11); Blood Urea Nitrogen 10.0 mg/dl (6-23); Calcium 8.6 mg/dl (8.6-10.3); Carbon Dioxide 20.0 mmol/L (21-32); Chloride 105.0 mmol/L (98-107); Creatinine Clr Calc Pharmacy 114.2 ml/min; Glucose 86.0 mg/dl (70-99(Fasting)); Potassium 3.3 mmol/L (3.5-5.1); Sodium 138.0 mmol/L (136-145)
--- NOTE | 2025-01-11 09:29 | XRay Report ---
KUB CLINICAL HISTORY: SBO, NG tube in place COMPARISON STUDY: 01/10/2025 FINDINGS: The nasogastric tube is again visualized within the stomach. A pelvic bladder catheter is a gain visualized. There is a ostomy present just to the left of midline. There are prostatic calcifica tions present. Moderately advanced degenerative changes are present within the spine and hips. There is decreasing colonic distention. There is slight decrease in the minimally dilated small bowel loops . IMPRESSION: Decreasing colonic and small bowel distention. ACT 112: Negative or not required by law. Electronically signed by: Tl Evangelista M.D. 01/11/2025 9:27 AM
--- NOTE | 2025-01-11 09:39 | Surgery Progress Note ---
Date of Service January 11, 2025 Assessment & Plan (1) Partial small bowel obstruction: Plan: More likely neurogenic bowel rather than true obstruction. KUB improving today. Will perform clamping trial. If low residuals may consider pulling NG tube and letting him try clears after speech and swallowing eval. If high residuals we will probably order small bowel follow-through for tomorrow (2) Acute intestinal pseudo-obstruction: Admission and Anticipated Discharge Date Admission Date: January 01, 2025 Subjective Patient seen. Denies any abdominal pain or nausea. Per nursing did have a hard stool come with irrigation Physical Exam Physical Exam: Abdomen is soft nondistended Nontender Stoma intact. Currently no stool in the bag Results & Data Vital Signs (Past 12 Hours) Vital Signs Temp Pulse Pulse Resp BP BP Pulse Ox 01/11/25 07:34 36.5 C 89 18 148/82 H 96 01/11/25 05:00 01/11/25 03:36 88 158/95 H 01/11/25 03:06 36.3 C L 88 18 164/89 H 97 01/11/25 03:04 88 164/89 H 01/10/25 23:20 87 18 114/67 97 01/10/25 21:40 86 Pulse Ox O2 Del Method O2 Del Method 01/11/25 07:34 Room Air 01/11/25 05:00 94 Room Air 01/11/25 03:36 01/11/25 03:06 Room Air 01/11/25 03:04 01/10/25 23:20 Room Air 01/10/25 21:40 PG Care Time/CCT Total # of Minutes Spent Total Time Spent with Patient: Total time spent is greater than 50% in coordination of care (as documented) at patient's floor/unit and/or counseling patient: Coding Level of Care Code 15559 SUB INP/OBS CARE 07/03MIN Diagnoses Partial small bowel obstruction K56.600 Acute intestinal pseudo-obstruction K59.89
--- NOTE | 2025-01-11 10:05 | Hospitalist Progress Note ---
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 Patient was subsequently diagnosed with an acute partial small bowel obstruction (as noted on 01/01/2025, 12:46pm CT abd/pelvis with IV contrast). Disposition: Continued stay on MedSur with NPO and NGT and no surgical intervention as per General Surgery Service of Dr. Kvng Deleon on 01/07/2025; plan is to return to [facility], where patient lives once his recurrent SBO resolves. Admission and Anticipated Discharge Date Admission Date: January 01, 2025 Subjective No events overnight. Pt resting comfortably in bed, NGT in place. Review of Systems Review of Systems: CONST: Negative for fever, body aches and chills. HENT: Negative for neck pain/stiffness, headache, congestion, sore throat, swelling. EYES: Negative for discharge/pain or vision changes. RESP: Negative for cough/hemoptysis and shortness of breath. CV: Negative chest pain, difficulty breathing, palpitations. ABD: Negative pain, nausea, vomiting. : Negative increase frequency, dysuria, blood in urine or stool. MUSC: Negative for muscle aches, edema. SKIN: Negative rash, lesions/sores. NEURO: Negative headache, dizziness, weakness. Physical Exam Physical Exam: GENERAL APPEARANCE NAD, activity normal for age, well developed/ well nourished, no cyanosis, pallor, or diaphoresis. EYES lids/conjunctiva normal. EARS/NOSE/THROAT Mucous membranes moist, nares normal, lips/teeth normal uvula midline without oral pharyngeal erythema, exudate or swelling TMs normal bilaterally. No lymphangitis/lymphedema. HEAD/NECK NGT in place RESPIRATORY respiratory effort normal, speaks in full sentences, no tripod position, no accessory muscle use. Lungs clear to auscultation without rhonchi, wheezes, rales CARDIAC Regular rate and rhythm, no edema. ABDOMINAL Soft, ND/NT. No evidence of fluid wave. No pulsatile masses on exam, rebound tenderness, Lakhani sign or pain over Mcburney's point. MUSCLES/EXTREMITIES No abnormal range of motion, no swelling. SKIN Warm, pink and dry. No rashes, dermatoses, petechiae or lesions. NEUROLOGICAL Speech is clear and appropriate. Normal level of consciousness. Gait and coordination are normal. 5/5 strength in all extremities. PSYCH Normal mood and affect. Judgement/competence is appropriate Results & Data Results & Data Vital Signs (Past 12 Hours) Vital Signs Temp Pulse Pulse Resp BP BP Pulse Ox 01/11/25 09:54 95 H 01/11/25 07:34 36.5 C 89 18 148/82 H 96 01/11/25 05:00 01/11/25 03:36 88 158/95 H 01/11/25 03:06 36.3 C L 88 18 164/89 H 97 01/11/25 03:04 88 164/89 H 01/10/25 23:20 87 18 114/67 97 Pulse Ox O2 Del Method O2 Del Method 01/11/25 09:54 01/11/25 07:34 Room Air 01/11/25 05:00 94 Room Air 01/11/25 03:36 01/11/25 03:06 Room Air 01/11/25 03:04 01/10/25 23:20 Room Air PG Care Time/CCT Total # of Minutes Spent Total Time Spent with Patient: Total time spent is greater than 50% in coordination of care (as documented) at patient's floor/unit and/or counseling patient: Coding Level of Care Code 06133 SUB INP/OBS CARE 2/35MIN Diagnoses Small bowel obstruction due to adhesions K56.50 Diabetes mellitus, type 2 E11.9 Hypertension I10
[2025-01-11] MEDS ORDERED: Nursing to Pharmacy Communication SCH (16:30)
[2025-01-11] MEDS: INSULIN ASPART PER UNIT CHARGE SC SCH (17:29)
[2025-01-12 05:20] LABS: Hematocrit (blood only) 32.6 % (42.0-52.0); Hemoglobin 11.6 g/dl (14.0-18.0); Mean Corpuscular Hemoglobin 31.2 pg (25.0-34.0); Mean Corpuscular Volume 87.6 fL (80.0-100.0); Platelet Count 205 K/uL (130-400); RDW Standard Deviation 47.5 fL (36.4-46.3); Red Blood Count 3.72 M/uL (4.70-6.10); White Blood Count 7.61 K/ul (4.8-10.8)
[2025-01-12 05:38] LABS: Anion Gap 10.0 (3-11); Blood Urea Nitrogen 10.0 mg/dl (6-23); Calcium 8.4 mg/dl (8.6-10.3); Carbon Dioxide 21.0 mmol/L (21-32); Chloride 105.0 mmol/L (98-107); Creatinine Clr Calc Pharmacy 110.5 ml/min; Glucose 110.0 mg/dl (70-99(Fasting)); Potassium 3.2 mmol/L (3.5-5.1); Sodium 136.0 mmol/L (136-145)
--- NOTE | 2025-01-12 10:43 | Hospitalist Progress Note ---
Date of Service January 12, 2025 Assessment & Plan (1) Small bowel obstruction due to adhesions: Plan: -con't NGT -IVF -antiemetics -surgery following -suspected neurogenic bowel -f/u KUBs showing improvement -NGT d/c'd -pt tolerating clear liquid diet -will advance to full liquid today (2) Diabetes mellitus, type 2: Plan: Pharmacy glycemic consult (3) Hypertension: Plan: -metoprolol IV Plan 69 years old male with PMH of DNR/DNI @ [facility], functional quadriplegia with cerebral palsy and spina bifida leading to chronic bilateral paraplegia, intellectual disability, and 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 Patient was subsequently diagnosed with an acute partial small bowel obstruction (as noted on 01/01/2025, 12:46pm CT abd/pelvis with IV contrast). Plan is to return to [facility], where patient lives Admission and Anticipated Discharge Date Admission Date: January 01, 2025 Subjective Pt doing well this am, tolerated clear liquid diet. Review of Systems Review of Systems: CONST: Negative for fever, body aches and chills. HENT: Negative for neck pain/stiffness, headache, congestion, sore throat, swelling. EYES: Negative for discharge/pain or vision changes. RESP: Negative for cough/hemoptysis and shortness of breath. CV: Negative chest pain, difficulty breathing, palpitations. ABD: Negative pain, nausea, vomiting. : Negative increase frequency, dysuria, blood in urine or stool. MUSC: Negative for muscle aches, edema. SKIN: Negative rash, lesions/sores. NEURO: Negative headache, dizziness, weakness. Constitutional: . Physical Exam Physical Exam: GENERAL APPEARANCE NAD, activity normal for age, well developed/ well nourished, no cyanosis, pallor, or diaphoresis. EYES lids/conjunctiva normal. EARS/NOSE/THROAT Mucous membranes moist, nares normal, lips/teeth normal uvula midline without oral pharyngeal erythema, exudate or swelling TMs normal bilaterally. No lymphangitis/lymphedema. HEAD/NECK NGT in place RESPIRATORY respiratory effort normal, speaks in full sentences, no tripod position, no accessory muscle use. Lungs clear to auscultation without rhonchi, wheezes, rales CARDIAC Regular rate and rhythm, no edema. ABDOMINAL Soft, ND/NT. No evidence of fluid wave. No pulsatile masses on exam, rebound tenderness, Lakhani sign or pain over Mcburney's point. MUSCLES/EXTREMITIES No abnormal range of motion, no swelling. SKIN Warm, pink and dry. No rashes, dermatoses, petechiae or lesions. NEUROLOGICAL Speech is clear and appropriate. Normal level of consciousness. Gait and coordination are normal. 5/5 strength in all extremities. PSYCH Normal mood and affect. Judgement/competence is appropriate Results & Data Results & Data Vital Signs (Past 12 Hours) Vital Signs Temp Pulse Pulse Resp BP BP Pulse Ox 01/12/25 08:00 73 01/12/25 07:22 36.4 C L 81 16 161/80 H 94 01/12/25 04:56 01/12/25 04:55 74 144/85 H 01/12/25 02:50 37.2 C 85 18 146/82 H 94 01/11/25 22:57 36.6 C 84 20 148/80 H 94 O2 Del Method O2 Del Method 01/12/25 08:00 01/12/25 07:22 Room Air 01/12/25 04:56 Room Air 01/12/25 04:55 01/12/25 02:50 Room Air 01/11/25 22:57 Room Air PG Care Time/CCT Total # of Minutes Spent Total Time Spent with Patient: Total time spent is greater than 50% in coordination of care (as documented) at patient's floor/unit and/or counseling patient: Coding Level of Care Code 63788 SUB INP/OBS CARE 2/35MIN Diagnoses Small bowel obstruction due to adhesions K56.50 Diabetes mellitus, type 2 E11.9 Hypertension I10
--- NOTE | 2025-01-12 12:42 | Surgery Progress Note ---
Date of Service January 12, 2025 Assessment & Plan (1) Partial small bowel obstruction: Plan: patient here w/ likely neurogenic bowel kub improved yesterday and ngt has been removed he is tolerating clears without abdominal complaints. okay to continue to advance diet as tolerates keep an eye on ostomy output As above. So far he is tolerating clears. States he is hungry and would like some actual food. Clinically soft and nondistended. Will go ahead and advance his diet and see how he does Admission and Anticipated Discharge Date Admission Date: January 01, 2025 Subjective Patient reports no complaints. No nausea or abdominal pain. Tolerating clears and hoping for some more. Physical Exam Physical Exam: awake,no distress Gastrointestinal (Abdomen): Percussion/Palpation: abdomen soft; abdomen nontender ostomy with no stool currently in the bag Results & Data Vital Signs (Past 12 Hours) Vital Signs Temp Pulse Pulse Resp BP BP BP 01/12/25 11:54 97.5 F L 83 16 155/95 H 01/12/25 11:41 90 155/95 H 01/12/25 11:26 85 141/79 H 01/12/25 08:00 73 01/12/25 07:22 97.5 F L 81 16 161/80 H 01/12/25 04:56 01/12/25 04:55 74 144/85 H 01/12/25 02:50 99.0 F 85 18 146/82 H Pulse Ox O2 Del Method O2 Del Method 01/12/25 11:54 97 Room Air 01/12/25 11:41 01/12/25 11:26 01/12/25 08:00 01/12/25 07:22 94 Room Air 01/12/25 04:56 Room Air 01/12/25 04:55 01/12/25 02:50 94 Room Air PG Care Time/CCT Total # of Minutes Spent Total Time Spent with Patient: Total time spent is greater than 50% in coordination of care (as documented) at patient's floor/unit and/or counseling patient: Coding Level of Care Code 50163 SUB INP/OBS CARE 07/03MIN Diagnoses Partial small bowel obstruction K56.600
--- NOTE | 2025-01-12 14:29 | Pharmacy Report ---
Pharmacy Glycemic Short Note 2 - Date of Service January 12, 2025 - Glycemic Short BSG Results (Last 24 hours): 01/11/25 01/11/25 01/12/25 16:21 20:08 04:34 Glucose 110 H POC Glucose 121 H 117 H 01/12/25 01/12/25 07:24 11:39 Glucose POC Glucose 117 H 146 H OUTPATIENT ANTIDIABETIC REGIMEN: * Lantus 70 units SQ HS * NovoLog SS * Ozempic 2mg SQ QWK * HbA1c 8.9% (10/14/24) ASSESSMENT: 01/12: * Arden did not receive any insulin yesterday * Fasting BSG this AM acceptable, diet advanced to clears yesterday and to full liquids today, BSGs trending up, will continue with a basal scale and adjust up for increased PO intake * No changes to NovoLog at this time, no additional glycemic stressors noted. 01/10: * Arden received zero units of insulin yesterday, continues with NPO status. * Fasting BSG this AM slightly below goal, but not hypoglycemic. Will continue current basal scale if BSGs trend upward or diet advanced. * No changes to NovoLog at this time. 01/09 * Insulin needs continue to trend down. Patient received Lantus 10 units HS yesterday, no bolus insulin. Majority of BSGs below goal. Remains NPO. * Decrease Lantus dose further and add hold parameter. 01/07: * Patient received total of 30 units of insulin yesterday of which 15 units were basal * Fasting BSG 175 mg/dL - still NPO this AM, reasonable to have scale again for basal at HS * Lunch BSG trending up will tighten CF 01/05: * Arden received 21 units of insulin yesterday (10 were basal) * Fasting BSG this AM elevated, clarifying the need for continuing dextrose fluids with diet advancement. Also planning to increase basal scale at bedtime with diet advancement * No changes to NovoLog at this time. 01/04: * BSGs over the past 24 hours were [phone] mg/dL. Fasting this morning was 168 mg/dL. * Patient received 5 units of insulin yesterday (all bolus). Given uptrend in fasting BSG, will give a one time dose of lantus this morning and resume scale with minor parameter adjustments. Will continue current novolog scale * Patient remains NPO but on D5 1/2NS @125mL/hr 01/02: * Arden is a 69 year old male admitted with a partial small bowel obstruction and a history of type 2 diabetes mellitus. Pharmacy has been consulted to assist with glycemic management while inpatient. He is currently NPO. * Pharmacy was consulted for glycemic management during Arden's small bowel obstruction last year. He required significantly less basal insulin while NPO. Will initiate a basal scale based on BSGs at this time only if BSGs become elevated. * NovoLog at a weight based stress of 2. PLAN FOR INPATIENT GLYCEMIC CONTROL: * Basal insulin * Lantus 0-15 units SQ HS (see eMAR for additional details) * Bolus insulin * NovoLog per scale ACHS or Q6hrs while NPO * Goal Range: Low 110 mg/dL - High 140 mg/dL * Correction Factor: 30 mg/dL/unit * Nutritional / Prandial insulin per carb ratio of 1 unit per 10 grams CHO consumed
--- NOTE | 2025-01-13 08:06 | Surgery Progress Note ---
Date of Service January 13, 2025 Assessment & Plan (1) Partial small bowel obstruction: Plan: Doing well. Tolerating regular diet. Ostomy functioning. Will sign off. Please call if any questions or concerns Admission and Anticipated Discharge Date Admission Date: January 01, 2025 Subjective Patient seen. Sitting up in bed eating regular breakfast. Denies abdominal pain or nausea Physical Exam Physical Exam: Alert no acute distress Abdomen soft nontender. Stoma is finally starting to put out stool and gas Results & Data Vital Signs (Past 12 Hours) Vital Signs Temp Pulse Pulse Resp BP Pulse Ox O2 Del Method 01/13/25 04:46 01/13/25 02:44 36.9 C 83 20 134/80 96 Room Air 01/12/25 23:11 36.9 C 78 18 144/79 H 95 Room Air 01/12/25 22:41 96 H O2 Del Method 01/13/25 04:46 Room Air 01/13/25 02:44 01/12/25 23:11 01/12/25 22:41 PG Care Time/CCT Total # of Minutes Spent Total Time Spent with Patient: Total time spent is greater than 50% in coordination of care (as documented) at patient's floor/unit and/or counseling patient: Coding Level of Care Code 77690 SUB INP/OBS CARE 07/03MIN Diagnoses Partial small bowel obstruction K56.600
--- NOTE | 2025-01-13 10:11 | Discharge Summary ---
Discharge Summary Date of Service January 13, 2025 Principal Dx & Hospital Course #1 = Principal Diagnosis (1) Small bowel obstruction due to adhesions: -con't NGT -IVF -antiemetics -surgery following -suspected neurogenic bowel -f/u KUBs showing improvement -NGT d/c'd -pt tolerating clear liquid diet -will advance to full liquid today -pt tolerating regular diet, no complaints (2) Diabetes mellitus, type 2: Pharmacy glycemic consult (3) Hypertension: -metoprolol IV Plan 69 years old male with PMH of DNR/DNI @ [facility], functional quadriplegia with cerebral palsy and spina bifida leading to chronic bilateral paraplegia, intellectual disability, and 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 Patient was subsequently diagnosed with an acute partial small bowel obstruction (as noted on 01/01/2025, 12:46pm CT abd/pelvis with IV contrast). Plan is to return to [facility], where patient lives Admission HPI Per Admitting Provider 69 y/o with CP and developmental delay, recent colostomy for chronic sigmoid volvulus, neurogenic bladder with SP catheter. Came in by EMS from his SNF [facility] with vomiting. According to facility and ED projectile vomiting started last night. Facility gave phenergan IM today, continued vomiting. EMS gave IV zofran. Not vomiting on arrival to ED, not in pain and abdominal exam benign. CT obtained which showed partial small bowel obstruction. Colostomy is functioning. has small to medium amount of brown liquid stool in the bag and unknown when it was last changed, there is not really any gas in the bag. He is sleepy because of the Phenergan given earlier today but he will open his eyes when addressed and ask straightforward questions. He is a limited historian because of his Developmental delay but able to tell me that he is not having any abdominal pain or nausea currently, he feels slightly short of breath but is not coughing and does not have chest pain. his sister is at the bedside and provides additional history she says he got his colostomy a couple of months ago and his surgeon was about ready to sign off on him except for a small amount of abdominal wound which is still healing and has been a little bit red. He got some antibiotics for this within the last couple of weeks based on my review of the SNF records it was Bactrim given in the first week of December. She also says that his SP catheter clogs easily. Discharge Exam GENERAL APPEARANCE NAD, activity normal for age, well developed/ well nourished, no cyanosis, pallor, or diaphoresis. EYES lids/conjunctiva normal. EARS/NOSE/THROAT Mucous membranes moist, nares normal, lips/teeth normal uvula midline without oral pharyngeal erythema, exudate or swelling TMs normal bilaterally. No lymphangitis/lymphedema. HEAD/NECK NGT in place RESPIRATORY respiratory effort normal, speaks in full sentences, no tripod position, no accessory muscle use. Lungs clear to auscultation without rhonchi, wheezes, rales CARDIAC Regular rate and rhythm, no edema. ABDOMINAL Soft, ND/NT. No evidence of fluid wave. No pulsatile masses on exam, rebound tenderness, Lakhani sign or pain over Mcburney's point. MUSCLES/EXTREMITIES No abnormal range of motion, no swelling. SKIN Warm, pink and dry. No rashes, dermatoses, petechiae or lesions. NEUROLOGICAL Speech is clear and appropriate. Normal level of consciousness. Gait and coordination are normal. 5/5 strength in all extremities. PSYCH Normal mood and affect. Judgement/competence is appropriate Discharge Plan Discharge Items Patient Disposition: Home - Self-Care Reason For Visit: SBO Discharge Diagnosis: Partial small bowel obstruction Condition on Discharge: Good Activity: Resume your previous activity Lifting: Gradually increase as tolerated Bathing: No limitations Sexual Activity: When tolerated Exercise/Sports: Gradually increase as tolerated Driving/Machine Use: No limitations Weightbearing: Full weightbearing Non-emergency contact: Primary Care Provider Call non-emergency contact if: you have any medication questions, your symptoms worsen, your pain is not controlled and you have a fever Follow-up/Referrals: [facility] [Primary Care Provider] - Diet: Heart Healthy Diet Texture: Dental soft (bite-sized) Addtl Attending Provider Instructions: See your PCP @ [facility] within 5-7 days of hospital discharge. Pending Studies at Discharge: No Stand-Alone Forms: My Pick a Student Medications and DC Order Prescriptions: Continued (DME) Wheelchair (Manual) Device See Dose Instructions .ROUTE .MEDSUPPLY Qty: 1 0RF Dose Instruction: As directed Rx Instructions: Wheelchair Repair (DME) diaper,brief,adult,disposable Misc See Dose Instructions .ROUTE .MEDSUPPLY Qty: 48 2RF Rx Instructions: As directed (DME) OneTouch Ultra Blue Test Strip Strip See Dose Instructions .ROUTE .MEDSUPPLY Qty: 100 5RF Dose Instruction: As directed Rx Instructions: Test once a day (DME) blood-glucose meter [OneTouch Verio Meter] misc See Dose Instructions .ROUTE .MEDSUPPLY Qty: 1 Rx Instructions: USE TO TEST 3-4 TIMES DAILY PRN cholecalciferol (vitamin D3) 1,000 unit tablet 3,000 units PO QAM atorvastatin 20 mg tablet 20 mg PO HS acetaminophen [Tylenol] 325 mg Tablet 650 mg PO Q6H MDD 3g/24hr PRN (Reason: Pain/Fever) ondansetron HCl 4 mg Tablet 4 mg PO Q6H PRN (Reason: Nausea And Vomiting) polyethylene glycol 3350 [Miralax] 17 gram Powder In Packet 17 g PO QAM promethazine 25 mg/mL Solution 25 mg IM Q6H PRN (Reason: Nausea And Vomiting) insulin aspart U-100 100 unit/mL solution 1 sliding scale dose subcut ACHS Rx Instructions: 351-400 = 8 units; 401-450 = 12 units; 451-500 = 16units; 501-550 = 19units; 551 - 600 = 20units cyanocobalamin (vitamin B-12) 1,000 mcg/mL solution 1,000 mcg IM MONTHLY propranolol 120 mg capsule,extended release 24hr 120 mg PO QAM magnesium chloride [Mag 64] 64 mg Tablet,Delayed Release (Dr/Ec) 64 mg PO QAM magnesium oxide 400 mg magnesium Tablet 400 mg PO BID insulin glargine-yfgn 100 unit/mL (3 mL) insulin pen 70 unit SUBCUT HS Discontinued Ozempic 2 mg/dose (8 mg/3 mL) Pen Injector 2 mg subcut WK Rx Instructions: Fri Discharge Orders: Discharge Order (Routine); Ordered 01/13/25 Ordered By: Teo Kim/Other Patient Handouts: Small Bowel Obstruction Admission Data Admit Date/Time: 01/01/25 16:49 Attending Provider: Teo Lira Admit Provider: Hansa Guerra Primary Care Provider: [facility] Other Providers: Hansa Guerra; Juarez Woodson; Kvng Deleon Hospital Stay Data Consultations 01/01/25 15:28 ED Decision to Admit Stat 01/03/25 11:21 Consult General Surgery Routine 01/07/25 13:49 Consult General Surgery Routine Diagnostic Imagining Performed 01/01/25 12:46 CT Abd and Pelvis [CT abd pelvis IV con only] Stat Pending Results Patient Have Any Pending Studies at Discharge: No Discharge Instructions Given to Patient (Per Discharging Provider) See your PCP @ [facility] within 5-7 days of hospital discharge. Total Time Total Time Spent Total Time Spent (In Minutes): 50 Coding Level of Care Code 19040 INP/OBS DISCH >30 MIN Diagnoses Small bowel obstruction due to adhesions K56.50 Diabetes mellitus, type 2 E11.9 Hypertension I10
[2025-01-13 11:21] VITALS: BP 132/79; PULSE 88; RESP 20; TEMP 97.5; O2SAT 96
== END 2025-01-13 12:34 | DRG 388 ==
LOC: SUATTDRO → ED 12:21 → 2E 16:49 → SUATTDRO 16:49 → 2E 18:05 → 3N 01-04 22:04 → 2S 01-07 02:13